=== PATIENT | female | born 1995 | race Caucasian/White ===

== ENCOUNTER 2019-10-30 08:51 | Emergency (ER) | payer MEDICAID ==
[~2019-10-30] VITALS: Ht 162.6 cm; Wt 54.4 kg
--- OUTSIDE RECORDS SUMMARY | ~2019-10-30 | XMS | Encounter Summary ---
Demographics + + + | Address | [address] | | | [place] [address] | + + + | Home Phone | | + + + | Preferred Language | Unknown | + + + | Marital Status | Single | + + + | Adventist Affiliation | 1013 | + + + | Race | Unknown | + + + | Ethnic Group | Unknown | + + + Author + + + | Author | [facility] | | | and [place] | + + + | Organization | [facility] | | | and [place] | + + + | Address | Unknown | + + + | Phone | Unavailable | + + + Support + + + + + | Name | Relationship | Address | Phone | + + + + + | Isma Hogan | ECON | [address] | | | | | [place] [address] | | + + + + + | Ab Romykia | ECON | Unknown | | + + + + + Care Team Providers + +------+ + | Care Project Management Advisor Name | Role | Phone | + +------+ + | Pj Abdi MD | PCP | | + +------+ + Reason for Visit + + + | Reason | Comments | + + + | Medication Refill | | + + + Encounter Details +--------+--------+ + + + | Date | Type | Department | Care Team | Description | +--------+--------+ + + + | 06/05/ | Refill | [facility] | Pj Abdi, | Medication Refill | | 2018 | | [facility] [place] | [address] | | | | | [address] | [place] | | | | | [place] | [address] | | | | | [address] | | | | | | [phone] | | | +--------+--------+ + + + Social History + + + +--------+ + | Tobacco Use | Types | Packs/Day | Years | Date | | | | | Used | | + + + +--------+ + | Current Every Day | Cigarettes | 1 | 14 | Started: 09/17/2009 | | Smoker | | | | | + + + +--------+ + + +---+---+---+ | Smokeless Tobacco: | | | | | Never Used | | | | + +---+---+---+ + + +---------+ + | Alcohol Use | Drinks/Week | oz/Week | Comments | + + +---------+ + | Yes | 0 Standard drinks | 0.0 | rarely | | | or equivalent | | | + + +---------+ + + + + | Sex Assigned at | Date Recorded | | | | + + + | Not on file | | + + + + + + + | Job Start Date | Occupation | Industry | + + + + | Not on file | Not on file | Not on file | + + + + + + + + | Travel History | Travel Start | Travel End | + + + + + + | No recent travel history available. | + + documented as of this encounter Plan of Treatment Not on filedocumented as of this encounter Visit Diagnoses Not on filedocumented in this encounter"
--- OUTSIDE RECORDS SUMMARY | ~2019-10-30 | XMS | Encounter Summary ---
Demographics + + + | Address | [address] | | | [place] [address] | + + + | Home Phone | | + + + | Preferred Language | Unknown | + + + | Marital Status | Single | + + + | Tenriism Affiliation | 1013 | + + + | Race | Unknown | + + + | Ethnic Group | Unknown | + + + Author + + + | Author | [facility] | | | and [place] | + + + | Organization | [facility] | | | and [...] | | | | | [place] [address] | | + + + + + | Ab Romykia | ECON | Unknown | | + + + + + Care Team Providers + +------+ + | Care Communications Associate Name | Role | Phone | + +------+ + PCP | Unavailable | + +------+ + Encounter Details +--------+ + + + + | Date | Type | Department | Care Team | Description | +--------+ + + + + | 05/19/ | Hospital | [facility] | Suhail Constantino | | | 2011 | Encounter | [facility] | MD Brian [address] | | | | | [place] [address] | [address] [place] | | | | | [place], [place] | [place] [address] | | | | | [address] | [phone] | | | | | [phone] | | | +--------+ + + + + Social History + +-------+ +--------+------+ | Tobacco Use | Types | Packs/Day | Years | Date | | | | | Used | | + +-------+ +--------+------+ | Never Assessed | | | | | + +-------+ +--------+------+ + + + | Sex Assigned at [...] + + documented as of this encounter Medications at Time of Discharge + + + +---------+ + + | Medication | Sig | Dispensed | Refills | Start | End Date | | | | | | Date | | + + + +---------+ + + | VITAMINS | TABS Take 1 tablet | | 0 | 02/02/20 | | | PO | by mouth daily | | | 12 | 6 | + + + +---------+ + + documented as of this encounter Plan of Treatment Not on filedocumented as of this encounter Visit Diagnoses Not on filedocumented in this encounter"
--- OUTSIDE RECORDS SUMMARY | ~2019-10-30 | XMS | Encounter Summary ---
Demographics + + + | Address | [address] | | | [place] [address] | + + + | Home Phone | | + + + | Preferred Language | Unknown | + + + | Marital Status | Single | + + + | Lutheran Affiliation | 1013 | + + + | Race | Unknown | + + + | Ethnic Group | Unknown | + + + Author + + + | Author | [facility] | | | and [place] | + + + | Organization | [facility] | | | and [...] | | | | | [place] [address] | | + + + + + | Ab Romykia | ECON | Unknown | | + + + + + Care Team Providers + +------+ + | Care Electromagnet Crane Operator Name | Role | Phone | + +------+ + PCP | Unavailable | + +------+ + Encounter Details +--------+ + + + + | Date | Type | Department | Care Team | Description | +--------+ + + + + | 05/18/ | Hospital | [facility] | Mike Dowd W, | | | 2009 | Encounter | [facility] | MD [address] [facility] | | | | | [address] | [place], [place] | | | | | [place], | [address] | | | | | [place] [address] | [phone] | | | | | [phone] | | | +--------+ + + + [...]
--- OUTSIDE RECORDS SUMMARY | ~2019-10-30 | XMS | Encounter Summary ---
Demographics + + + | Address | [address] | | | [place] [address] | + + + | Home Phone | | + + + | Preferred Language | Unknown | + + + | Marital Status | Single | + + + | Roman Catholic Affiliation | 1013 | + + + | Race | Unknown | + + + | Ethnic Group | Unknown | + + + Author + + + | Author | [facility] | | | and [place] | + + + | Organization | [facility] | | | and [...] | | | | | [place] [address] | | + + + + + | Ab Romykia | ECON | Unknown | | + + + + + Care Team Providers + +------+ + | Care Tile Layer Name | Role | Phone | + +------+ + PCP | Unavailable | + +------+ + Encounter Details +--------+ + + + + | Date | Type | Department | Care Team | Description | +--------+ + + + + | 09[facility]10/ | [facility] | | | [facility] | En[facility] | [facility] | | | | | | CENTER [address] | | | | | | [place], [place] | | | | | | [address] | | | | | | [phone] | | | +--------+ + + + [...]
--- OUTSIDE RECORDS SUMMARY | ~2019-10-30 | XMS | Encounter Summary ---
Demographics + + + | Address | [address] | | | [place] [address] | + + + | Home Phone | | + + + | Preferred Language | Unknown | + + + | Marital Status | Single | + + + | Nondenominational Affiliation | 1013 | + + + | Race | Unknown | + + + | Ethnic Group | Unknown | + + + Author + + + | Author | [facility] | | | and Johnana | + + + | Organization | [facility] | | [...] | | | | | [place] [address] | | + + + + + | Ab Romykia | ECON | Unknown | | + + + + + Care Team Providers + +------+ + | Care Cuff Turner Name | Role | Phone | + +------+ + | John Rhodes | PCP | | + +------+ + Reason for Visit + + + | Reason | Comments | + + + | Abdominal Pain | | + + + Encounter Details +--------+ + + + + | Date | Type | Department | Care Team | Description | +--------+ + + + + | 08/04/ | Emergency | [facility] | Jesse Newman, | Pelvic pain in | | 2016 | | [facility] | [place] [address] | female (Primary Dx); | | | | CENTER [address] | [place], [place] | Left ovarian cyst | | | | [place], [place] | [id number] | | | | | [address] | | | | | | [phone] | | | +--------+ + + + + Social History + + + +--------+------+ | Tobacco Use | Types | Packs/Day | Years | Date | | | | | Used | | + + + +--------+------+ | Current Every Day | Cigarettes | 0.5 | 12 | | | Smoker | | | | | + + + +--------+------+ + +---+---+---+ | Smokeless Tobacco: | | | | | Never Used | | | | + +---+---+---+ + + +---------+ + | Alcohol Use | Drinks/Week | oz/Week | Comments | + + +---------+ + | Yes | 0 Standard drinks | 0.0 | 1 drink per month | | | or equivalent | | [...] + + documented as of this encounter Last Filed Vital Signs + + + + + | Vital Sign | Reading | Time Taken | Comments | + + + + + | Blood Pressure | 115/65 | 08/05/2015 1:36 PM | | | | | PDT | | + + + + + | Pulse | 109 | 08/05/2015 1:36 PM | | | | | PDT | | + + + + + | Temperature | 37.1 C (98.8 F) | 08/05/2015 1:36 PM | | | | | PDT | | + + + + + | Respiratory Rate | 16 | 08/05/2015 1:36 PM | | | | | PDT | | + + + + + | Oxygen Saturation | 100% | 08/05/2015 1:36 PM | | | | | PDT | | + + + + + | Inhaled Oxygen | - | - | | | Concentration | | | | + + + + + | Weight | 54.4 kg (120 lb) | 08/05/2015 1:36 PM | | | | | PDT | | + + + + + | Height | 162.6 cm (5' 4") | 08/05/2015 1:36 PM | | | | | PDT | | + + + + + | Body Mass Index | 20.6 | 08/05/2015 1:36 PM | | | | | PDT | | + + + + + documented in this encounter Discharge Instructions AttachmentsThe following attachments cannot be sent through Care Everywhere.ABDOMINAL PAIN, ADULT (ANGOLAN)documented in this encounter Medications at Time of Discharge + + + +---------+ + + | Medication | Sig | Dispensed | Refills | Start | End Date | | | | | | Date | | + + + +---------+ + + | docusate-senna | Take 1 tablet by | 30 | 1 | 06/16/19 | | | (SENOKOT-S) 50-8.6 | mouth 2 times daily. | tablet | | 16 | 6 | | mg per tablet | | | | | | + + + +---------+ + + | | Take 1 tablet by | 15 | 0 | 08/05/19 | | | HYDROcodone-acetamin | mouth every 6 hours | tablet | | 16 | 6 | | ophen (NORCO) 5-325 | as needed for Pain. | | | | | | mg per tablet | | | | | | + + + +---------+ + + | naproxen | Take 500 mg by mouth | | 0 | | | | (NAPROSYN) 500 mg | Twice daily as | | | | 6 | | tablet | needed. | | | | | + + + +---------+ + + documented as of this encounter Plan of Treatment + +------+--------+ + + | Name | Type | Priori | Associated Diagnoses | Date/Time | | | | ty | | | + +------+--------+ + + | ED INFORMATION | CELSO | Routin | | 08/05/2015 12:24 PM | | EXCHANGE | | e | | PDT | + +------+--------+ + + documented as of this encounter Procedures + +--------+ + + + | Procedure Name | Priori | Date/Time | Associated Diagnosis | Comments | | | ty | | | | + +--------+ + + + | POCT TEST, | STAT | 08/05/2015 | | Results for this | | URINE, QUAL | | 2:49 PM | | procedure are in the | | | | PDT | | results section. | + +--------+ + + + | US PELVIS W | STAT | 08/05/2015 | | Results for this | | TRANSVAGINAL | | 2:48 PM | | procedure are in the | | | | PDT | | results section. | + +--------+ + + + | URINALYSIS WITH | STAT | 08/05/2015 | | Results for this | | MICROSCOPIC WITH | | 2:47 PM | | procedure are in the | | CULTURE IF INDICATED | | PDT | | results section. | + +--------+ + + + | EXTRA GOLD TOP TUBE | Routin | 08/05/2015 | | Results for this | | | e | 2:23 PM | | procedure are in the | | | | PDT | | results section. | + +--------+ + + + | EXTRA BLUE TOP TUBE | Routin | 08/05/2015 | | Results for this | | | e | 2:23 PM | | procedure are in the | | | | PDT | | results section. | + +--------+ + + + | CBC W/AUTO | STAT | 08/05/2015 | | Results for this | | DIFFERENTIAL | | 2:15 PM | | procedure are in the | | | | PDT | | results section. | + +--------+ + + + | COMPREHENSIVE | STAT | 08/05/2015 | | Results for this | | METABOLIC PANEL | | 2:15 PM | | procedure are in the | | | | PDT | | results section. | + +--------+ + + + | ED INFORMATION | Routin | 08/05/2015 | | | | EXCHANGE | e | 12:24 PM | | | | | | PDT | | | + +--------+ + + + documented in this encounter Results POCT Test, Urine, QUAL (08/05/2015 2:49 PM PDT) + + + + + + | Component | Value | Ref Range | Performed | Pathologist | | | | | At | Signature | + + + + + + | | Negative | Negative | | | | Test, | | | | | | Urine, POC | | | | | + + + + + + | Internal QC | Acceptable | | | | + + + + + + | Specific | | 1.010, 1.015, | | | | [place], | | 1.020, 1.025 | | | | POC | | | | | + + + + + + | Lot Number | [id number] | | | | + + + + + + | Expiration | 12/2016 | | | | | Date | | | | | + + + + + + + + | Specimen | + + | Urine specimen | | (specimen) | + + US Pelvis W Transvaginal (08/05/2015 2:48 PM PDT) + + | Specimen | + + | | + + + + + | Narrative | Performed At | + + + | EXAM: US PELVIS W TRANSVAGINAL dated 08/05/2015 12:00 AM | [facility] | | HISTORY:ABDOMINAL PAIN COMPARISON: January 14, 2012. | | | FINDINGS:Transabdominal and transvaginal imaging of the pelvis. | | | Uterus: The uterus is anteflexed. There is a 2 mm hyperechoic focus | | | in the myometrium. This does not shadow. The myometrium is | | | otherwise unremarkable. The endometrium is homogeneous and compact. | | | It measures 4 mm. The uterus measures 6.8 x 2.8 x 4.4 cm. | | | Ovaries and adnexa:. Ovaries are visualized. The right ovary is | | | normal. It measures 3.4 x 2.7 x 1.7 cm. There is a prominent | | | follicle in the left ovary. It measures 2.6 x 2.2 x 1.9 cm. The | | | left ovary overall measures 2.8 x 3.8 x 2.8 cm. Spectral and color | | | Doppler flow are identified in both ovaries. There are no adnexal | | | masses. There is no significant free fluid. IMPRESSION - | | | Prominent follicle in the left ovary. No evidence for ovarian | | | torsion. Nonspecific 2 mm echogenic focus in the myometrium. | | | This could be an area of mineralization. The preliminary | | | findings were conveyed to the ordering provider, by the hvac installation technician, | | | immediately following the exam. Dictated and Signed by: Nikko Odonnell | | | MD Krishan Electronically signed: 08/05/2015 3:23 PM | | + + + + + | Procedure Note | + + | Honorio, Rad Results In - 08/05/2015 3:26 PM PDT EXAM: US PELVIS W TRANSVAGINAL dated | | 08/05/2015 12:00 AMHISTORY:ABDOMINAL PAINCOMPARISON: January 13, | | 2011.FINDINGS:Transabdominal and transvaginal imaging of the pelvis.Uterus: The uterus | | is anteflexed. There is a 2 mm hyperechoic focus in themyometrium. This does not | | shadow. The myometrium is otherwise unremarkable. The endometrium is homogeneous and | | compact. It measures 4 mm. The uterusmeasures 6.8 x 2.8 x 4.4 cm.Ovaries and adnexa:. | | Ovaries are visualized. The right ovary is normal. Itmeasures 3.4 x 2.7 x 1.7 cm. | | There is a prominent follicle in the left ovary. It measures 2.6 x 2.2 x 1.9 cm. The | | left ovary overall measures 2.8 x 3.8 x 2.8cm. Spectral and color Doppler flow are | | identified in both ovaries. There areno adnexal masses. There is no significant free | | fluid.IMPRESSION -Prominent follicle in the left ovary.No evidence for ovarian | | torsion.Nonspecific 2 mm echogenic focus in the myometrium. This could be an area | | ofmineralization.The preliminary findings were conveyed to the ordering provider, by | | thesonographer, immediately following the exam.Dictated and Signed by: Nikko Nickerson, | | Electronically signed: 08/05/2015 3:23 PM | |It measures 2.6 x 2.2 x 1.9 cm. The left ovary overall measures 2.8 x 3.8 x 2.8 | |cm. Spectral and color Doppler flow are identified in both ovaries. There are | |no adnexal masses. There is no significant free fluid. | | | |IMPRESSION - | | | |Prominent follicle in the left ovary. | | | |No evidence for ovarian torsion. | | | |Nonspecific 2 mm echogenic focus in the myometrium. This could be an area of | |mineralization. | | | |The preliminary findings were conveyed to the ordering provider, by the | |hvac installation technician, immediately following the exam. | | | |Dictated and Signed by: Nikko Nickerson MD | | Electronically signed: 08/05/2015 3:23 PM | + + + +---------+ + + | Performing | Address | City/State/Zipcode | Phone Number | | Organization | | | | + +---------+ + + | [facility] | | | | + +---------+ + + Urinalysis with Microscopic with Culture if Indicated (08/05/2015 2:47 PM PDT) + + + + + + | Component | Value | Ref Range | Performed | Pathologist | | | | | At | Signature | + + + + + + | Color, | Yellow | Light Yellow, | [facility] | | | Urine | | Yellow, Straw | [facility] | | | | | | MED[facility] | | | | | | [facility] - | | | | | | LABORATORY | | + + + + + + | Clarity | Hazy | | [facility] | | | | | | [facility] | | | | | | MED[facility] | | | | | | CENTER - | | | | | | LABORATORY | | + + + + + + | pH, Urine | 8.0 | 5.0 - 8.0 | [facility] | | | | | | [facility] | | | | | | MEDICAL | | | | | | CENTER - | | | | | | LABORATORY | | + + + + + + | Specific | 1.006 | 1.001 - 1.030 | [facility] | | | [place], | | | [facility] | | | Urine | | | MEDICAL | | | | | | CENTER - | | | | | | LABORATORY | | + + + + + + | Protein, | Negative | Negative | [facility] | | | Urine | | | [facility] | | | | | | MEDICAL | | | | | | CENTER - | | | | | | LABORATORY | | + + + + + + | Blood, | Negative | Negative | [facility] | | | Urine | | | [facility] | | | | | | MEDICAL | | | | | | CENTER - | | | | | | LABORATORY | | + + + + + + | Glucose, | Negative | Negative | [facility] | | | Urine | | | [facility] | | | | | | MEDICAL | | | | | | CENTER - | | | | | | LABORATORY | | + + + + + + | Ketones, | Negative | Negative | [facility] | | | Urine | | | [facility] | | | | | | MEDICAL | | | | | | CENTER - | | | | | | LABORATORY | | + + + + + + | Bilirubin, | Negative | Negative | [facility] | | | Urine | | | [facility] | | | | | | MEDICAL | | | | | | CENTER - | | | | | | LABORATORY | | + + + + + + | Nitrite, | Negative | Negative | [facility] | | | Urine | | | [facility] | | | | | | MEDICAL | | | | | | CENTER - | | | | | | LABORATORY | | + + + + + + | Leukocyte | Negative | Negative | [facility] | | | Esterase, | | | [facility] | | | Urine | | | MEDICAL | | | | | | CENTER - | | | | | | LABORATORY | | + + + + + + | Urobilinoge | Negative | < 0.2 mg/dL, | [facility] | | | n, Urine | | 1.0 mg/dL, 4.0 | [facility] | | | | | mg/dL, Normal, | MEDICAL | | | | | 1.0 E.U./dL, | CENTER - | | | | | 0.2 E.U./dL, | LABORATORY | | | | | 0.2 mg/dL, | | | | | | Negative, 1 | | | | | | mg/dL, <2.0 | | | | | | mg/dL | | | + + + + + + | White Blood | 0-2 | 0 - 2 /HPF | [facility] | | | Cells, | | | [facility] | | | Urine | | | MEDICAL | | | | | | CENTER - | | | | | | LABORATORY | | + + + + + + | Red Blood | 0-2 | 0 - 2 /HPF | [facility] | | | Cells, | | | [facility] | | | Urine | | | MEDICAL | | | | | | CENTER - | | | | | | LABORATORY | | + + + + + + | Squamous | >100 (A) | 0 - 2 /LPF | [facility] | | | Epithelial | | | [facility] | | | Cells, | | | MEDICAL | | | Urine | | | CENTER - | | | | | | LABORATORY | | + + + + + + | Transitiona | 0-2 | 0 - 2 /HPF | [facility] | | | l | | | [facility] | | | Epithelial | | | MEDICAL | | | Cells, | | | CENTER - | | | Urine | | | LABORATORY | | + + + + + + | Bacteria, | 1+ (A) | Negative /HPF | [facility] | | | Urine | | | [facility] | | | | | | MEDICAL | | | | | | CENTER - | | | | | | LABORATORY | | + + + + + + | Mucus, | Present (A) | Negative /LPF | [facility] | | | Urine | | | [facility] | | | | | | MEDICAL | | | | | | CENTER - | | | | | | LABORATORY | | + + + + + + | Urine | Urine Culture Not | | [facility] | | | Comment | Indicated | | [facility] | | | | | | MEDICAL | | | | | | CENTER - | | | | | | LABORATORY | | + + + + + + + + | Specimen | + + | Urine - Urine | | specimen obtained by | | clean catch | | procedure (specimen) | + + + + + + + | Performing | Address | City/State/Zipcode | Phone Number | | Organization | | | | + + + + + | [facility] | [address] | [place] | [phone] | | [facility] | | [address] | | | - LABORATORY | | | | + + + + + Extra Gold Top Tube (08/05/2015 2:23 PM PDT) + +-------+ + + + | Component | Value | Ref Range | Performed | Pathologist | | | | | At | Signature | + +-------+ + + + | Extra Gold | Done | | [facility] | | | Top Tube | | | [facility] | | | | | | MEDICAL | | | | | | CENTER - | | | | | | LABORATORY | | + +-------+ + + + + + | Specimen | + + | Blood | + + + + + + + | Performing | Address | City/State/Zipcode | Phone Number | | Organization | | | | + + + + + | [facility] | [address] | [place] | [phone] | | [facility] | | [address] | | | - LABORATORY | | | | + + + + + Extra Blue Top Tube (08/05/2015 2:23 PM PDT) + +-------+ + + + | Component | Value | Ref Range | Performed | Pathologist | | | | | At | Signature | + +-------+ + + + | Extra Blue | Done | | [facility] | | | Top Tube | | | [facility] | | | | | | MEDICAL | | | | | | CENTER - | | | | | | LABORATORY | | + +-------+ + + + + + | Specimen | + + | Blood | + + + + + + + | Performing | Address | City/State/Zipcode | Phone Number | | Organization | | | | + + + + + | [facility] | [address] | [place] | [phone] | | [facility] | | [address] | | | - LABORATORY | | | | + + + + + Comprehensive Metabolic Panel (08/05/2015 2:15 PM PDT) + + + + + + | Component | Value | Ref Range | Performed | Pathologist | | | | | At | Signature | + + + + + + | Na | 141 | 136 - 149 | [facility] | | | | | mmol/L | [facility] | | | | | | MEDICAL | | | | | | CENTER - | | | | | | LABORATORY | | + + + + + + | K | 4.0 | 3.5 - 5.1 | [facility] | | | | | mmol/L | [facility] | | | | | | MEDICAL | | | | | | CENTER - | | | | | | LABORATORY | | + + + + + + | Cl | 106 | 98 - 109 mmol/L | [facility] | | | | | | [facility] | | | | | | MEDICAL | | | | | | CENTER - | | | | | | LABORATORY | | + + + + + + | CO2 | 27 | 24 - 31 mmol/L | [facility] | | | | | | [facility] | | | | | | MEDICAL | | | | | | CENTER - | | | | | | LABORATORY | | + + + + + + | Anion Gap | 8 | 3 - 16 mmol/L | [facility] | | | | | | [facility] | | | | | | MEDICAL | | | | | | CENTER - | | | | | | LABORATORY | | + + + + + + | Glucose | 106 | 70 - 109 mg/dL | [facility] | | | | | | [facility] | | | | | | MEDICAL | | | | | | CENTER - | | | | | | LABORATORY | | + + + + + + | BUN | 3 (L) | 7 - 18 mg/dL | [facility] | | | | | | [facility] | | | | | | MEDICAL | | | | | | CENTER - | | | | | | LABORATORY | | + + + + + + | Creatinine | 0.62 | 0.60 - 1.30 | [facility] | | | | | mg/dL | [facility] | | | | | | MEDICAL | | | | | | CENTER - | | | | | | LABORATORY | | + + + + + + | eGFR if not | >60Comment: GLOMERULAR | >=60 | [facility] | | | | FILTRATION | mL/min/1.73m2 | [facility] | | | [place] | RATE,ESTIMATED | | MEDICAL | | | | mL/min/1.35v1Rvme than | | CENTER - | | | | 60 Chronic kidney | | LABORATORY | | | | disease,if found over a | | | | | | 3-month period.Less than | | | | | | 15 Kidney failureFor | | | | | | | | | | | | Americans,multiply the | | | | | | calculated GFR by 1.21. | | | | | | | | | | + + + + + + | Calcium | 9.4 | 8.3 - 10.5 | [facility] | | | | | mg/dL | [facility] | | | | | | MEDICAL | | | | | | CENTER - | | | | | | LABORATORY | | + + + + + + | Albumin | 4.2 | 3.2 - 5.0 g/dL | [facility] | | | | | | [facility] | | | | | | MEDICAL | | | | | | CENTER - | | | | | | LABORATORY | | + + + + + + | Bilirubin | 0.7 | 0.1 - 1.5 mg/dL | [facility] | | | Total | | | [facility] | | | | | | MEDICAL | | | | | | CENTER - | | | | | | LABORATORY | | + + + + + + | Total | 6.6 | 6.0 - 7.8 g/dL | [facility] | | | Protein | | | [facility] | | | | | | MEDICAL | | | | | | CENTER - | | | | | | LABORATORY | | + + + + + + | AST | 20 | 10 - 42 U/L | [facility] | | | | | | [facility] | | | | | | MEDICAL | | | | | | CENTER - | | | | | | LABORATORY | | + + + + + + | ALT | 17 | 6 - 45 U/L | [facility] | | | | | | [facility] | | | | | | MEDICAL | | | | | | CENTER - | | | | | | LABORATORY | | + + + + + + | Alkaline | 75 | 40 - 110 U/L | [facility] | | | Phosphatase | | | [facility] | | | | | | MEDICAL | | | | | | CENTER - | | | | | | LABORATORY | | + + + + + + | Globulin | 2.4 | g/dL | [facility] | | | | | | [facility] | | | | | | MEDICAL | | | | | | CENTER - | | | | | | LABORATORY | | + + + + + + | Albumin/Bianca | 1.8 | | [facility] | | | bulin Ratio | | | [facility] | | | | | | MEDICAL | | | | | | CENTER - | | | | | | LABORATORY | | + + + + + + | BUN/Creatin | 4.8 | | [facility] | | | ine Ratio | | | [facility] | | | | | | MEDICAL | | | | | | CENTER - | | | | | | LABORATORY | | + + + + + + + + | Specimen | + + | Blood | + + + + + + + | Performing | Address | City/State/Zipcode | Phone Number | | Organization | | | | + + + + + | [facility] | [address] | [place] | [phone] | | [facility] | | [address] | | | - LABORATORY | | | | + + + + + CBC w/ Auto Differential (08/05/2015 2:15 PM PDT) + + + + + + | Component | Value | Ref Range | Performed | Pathologist | | | | | At | Signature | + + + + + + | WBC | 7.6 | 4.0 - 11.0 K/uL | [facility] | | | | | | [facility] | | | | | | MEDICAL | | | | | | CENTER - | | | | | | LABORATORY | | + + + + + + | RBC | 4.37 | 3.70 - 5.20 | [facility] | | | | | M/uL | [facility] | | | | | | MEDICAL | | | | | | CENTER - | | | | | | LABORATORY | | + + + + + + | Hemoglobin | 13.4 | 11.5 - 16.0 | [facility] | | | | | g/dL | [facility] | | | | | | MEDICAL | | | | | | CENTER - | | | | | | LABORATORY | | + + + + + + | Hematocrit | 40.3 | 34.0 - 47.0 % | [facility] | | | | | | [facility] | | | | | | MEDICAL | | | | | | CENTER - | | | | | | LABORATORY | | + + + + + + | MCV | 92.2 | 83.0 - 101.0 fL | [facility] | | | | | | [facility] | | | | | | MEDICAL | | | | | | CENTER - | | | | | | LABORATORY | | + + + + + + | MCH | 30.7 | 28.0 - 35.0 pg | [facility] | | | | | | [facility] | | | | | | MEDICAL | | | | | | CENTER - | | | | | | LABORATORY | | + + + + + + | MCHC | 33.3 | 32.0 - 36.0 | [facility] | | | | | g/dL | [facility] | | | | | | MEDICAL | | | | | | CENTER - | | | | | | LABORATORY | | + + + + + + | RDW-CV | 12.2 | <15.0 % | [facility] | | | | | | [facility] | | | | | | MEDICAL | | | | | | CENTER - | | | | | | LABORATORY | | + + + + + + | Platelet | 337 | 140 - 440 K/uL | [facility] | | | Count | | | [facility] | | | | | | MEDICAL | | | | | | CENTER - | | | | | | LABORATORY | | + + + + + + | MPV | 7.9 | fL | [facility] | | | | | | [facility] | | | | | | MEDICAL | | | | | | CENTER - | | | | | | LABORATORY | | + + + + + + | % | 76.9 | 45.0 - 82.0 % | [facility] | | | Neutrophils | | | [facility] | | | | | | MEDICAL | | | | | | CENTER - | | | | | | LABORATORY | | + + + + + + | % | 16.5 (L) | 20.0 - 45.0 % | [facility] | | | Lymphocytes | | | [facility] | | | | | | MEDICAL | | | | | | CENTER - | | | | | | LABORATORY | | + + + + + + | % Monocytes | 5.2 | 4.0 - 12.0 % | [facility] | | | | | | [facility] | | | | | | MEDICAL | | | | | | CENTER - | | | | | | LABORATORY | | + + + + + + | % | 0.8 | 0.0 - 5.0 % | [facility] | | | Eosinophils | | | [facility] | | | | | | MEDICAL | | | | | | CENTER - | | | | | | LABORATORY | | + + + + + + | % Basophils | 0.6 | 0.0 - 1.0 % | [facility] | | | | | | [facility] | | | | | | MEDICAL | | | | | | CENTER - | | | | | | LABORATORY | | + + + + + + | Absolute | 5.80 | 1.80 - 8.50 | [facility] | | | Neutrophils | | K/uL | [facility] | | | | | | MEDICAL | | | | | | CENTER - | | | | | | LABORATORY | | + + + + + + | Absolute | 1.20 | 0.60 - 3.20 | [facility] | | | Lymphocytes | | K/uL | [facility] | | | | | | MEDICAL | | | | | | CENTER - | | | | | | LABORATORY | | + + + + + + | Absolute | 0.40 | 0.00 - 1.00 | [facility] | | | Monocytes | | K/uL | [facility] | | | | | | MEDICAL | | | | | | CENTER - | | | | | | LABORATORY | | + + + + + + | Absolute | 0.10 | 0.00 - 0.40 | [facility] | | | Eosinophils | | K/uL | [facility] | | | | | | MEDICAL | | | | | | CENTER - | | | | | | LABORATORY | | + + + + + + | Absolute | 0.00 | 0.00 - 0.10 | [facility] | | | Basophils | | K/uL | [facility] | | | | | | MEDICAL | | | | | | CENTER - | | | | | | LABORATORY | | + + + + + + + + | Specimen | + + | Blood | + + + + + + + | Performing | Address | City/State/Zipcode | Phone Number | | Organization | | | | + + + + + | [facility] | [address] | [place] | [phone] | | [facility] | | [address] | | | - LABORATORY | | | | + + + + + documented in this encounter Visit Diagnoses + + | Diagnosis | + + | Pelvic pain in female - Primary Unspecified symptom associated with female genital | | organs | + + | Left ovarian cyst Other and unspecified ovarian cyst | + + documented in this encounter Administered Medications + +--------+ +---------+------+------+ | Medication Order | MAR | Action | Dose | Rate | Site | | | Action | Date | | | | + +--------+ +---------+------+------+ | HYDROcodone-acetaminophen | Given | 08/05/19 | 2 | | | | ([facility]CO) 5-325 mg per tablet 2 | | 16 2:15 | tablets | | | | tablet 2 tablet, Oral, ONCE, Tue | | PM PDT | | | | | 08/05/15 at 1405, For 1 dose | | | | | | + +--------+ +---------+------+------+ +---+---+ | | | +---+---+ documented in this encounter
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
--- OUTSIDE RECORDS SUMMARY | ~2019-10-30 | XMS | Encounter Summary ---
Demographics + + + | Address | [address] | | | [place] [address] | + + + | Home Phone | | + + + | Preferred Language | Unknown | + + + | Marital Status | Single | + + + | Scientology Affiliation | 1013 | + + + | Race | Unknown | + + + | Ethnic Group | Unknown | + + + Author + + + | Author | [facility] | | | and Johnana | + + + | Organization | [facility] | | | and [...] | | | | | [place] [address] | | + + + + + | Ab Julio C | ECON | Unknown | | + + + + + Care Team Providers + +------+ + | Care Columnist/Commentator Name | Role | Phone | + +------+ + | Pj Abdi MD | PCP | | + +------+ + Reason for Visit + + + | Reason | Comments | + + + | Incontinence | | + + + | Back Pain | | + + + Encounter Details +--------+ + + + + | Date | Type | Department | Care Team | Description | +--------+ + + + + | 03/25/ | Emergency | [facility] | Jeannette, | Chronic bilateral | | 2017 - | | [facility] | Mike Yarbrough MD [address] | low back pain with | | | | CENTER [address] | [address] [place] | right-sided sciatica | | 03/26/ | | [place] | [place] [address] | (Primary Dx); | | 2016 | | [address] | [phone] | Urinary | | | | [phone] | | incontinence, | | | | | Eric Lozano MD | unspecified type | | | | | [address] | | | | | | [place] | | | | | | [id number] | | | | | | | | +--------+ + + + [...] + + + | Blood Pressure | 123/69 | 03/25/2017 11:56 PM | | | | | PDT | | + + + + + | Pulse | 102 | 03/25/2017 11:56 PM | | | | | PDT | | + + + + + | Temperature | 35.8 C (96.5 F) | 03/25/2017 10:58 PM | | | | | PDT | | + + + + + | Respiratory Rate | 18 | 03/25/2017 10:58 PM | | | | | PDT | | + + + + + | Oxygen Saturation | 99% | 03/25/2017 11:56 PM | | | | | PDT | | + + + + + | Inhaled Oxygen | - | - | | | Concentration | | | | + + + + + | Weight | 59 kg (130 lb) | 03/25/2017 10:58 PM | | | | | PDT | | + + + + + | Height | 165.1 cm (5' 5") | 03/25/2017 10:58 PM | | | | | PDT | | + + + + + | Body Mass Index | 21.63 | 03/25/2017 10:58 PM | | | | | PDT | | + + + + + documented in this encounter Discharge Instructions AttachmentsThe following attachments cannot be sent through Care Everywhere.Back Pain (Low) : Self-Care (Emirati)documented in this encounter Medications at Time of Discharge + + + +---------+ + + | Medication | Sig | Dispensed | Refills | Start | End Date | | | | | | Date | | + + + +---------+ + + | acetaminophen | Take 500 mg by mouth | | 0 | | | | (TYLENOL) 500 mg | every 6 hours as | | | | 8 | | tablet | needed for Pain. | | | | | + + + +---------+ + + | aspirin 325 mg | Take 325 mg by mouth | | 0 | | | | tablet | 2 times daily. | | | | 8 | + + + +---------+ + + | gabapentin | Take 3 capsules by | 90 | 5 | 12/01/19 | | | (NEURONTIN) 300 mg | mouth Daily. | capsule | | 17 | 8 | | capsuleIndications: | | | | | | | Chronic pain | | | | | | | syndrome, DDD | | | | | | | (degenerative disc | | | | | | | disease), lumbar, | | | | | | | Facet arthritis of | | | | | | | lumbar region, | | | | | | | Chronic right-sided | | | | | | | low back pain with | | | | | | | right-sided sciatica | | | | | | + + + +---------+ + + | | Take 1 tablet by | 30 | 0 | 03/10/20 | | | HYDROcodone-acetamin | mouth every 6 hours | tablet | | 17 | 7 | | ophen (NORCO) 5-325 | as needed for Pain | | | | | | mg per | (for severe break | | | | | | tabletIndications: | through pain). | | | | | | Chronic pain | | | | | | | syndrome | | | | | | + + + +---------+ + + | hydrOXYzine | TAKE TWO TABLETS | 60 | 0 | 03/15/20 | | | hydrochloride | EVERY SIX HOURS | tablet | | 17 | 7 | | (ATARAX) 25 mg | NEEDED FOR ANXIETY | | | | | | tablet | OR ITCHING | | | | | + + + +---------+ + + | methylPREDNISolone | Follow package | 21 | 0 | 02/16/20 | | | (MEDROL DOSEPAK) 4 | directions. | tablet | | 17 | 7 | | mg tablet | | | | | | + + + +---------+ + + | naproxen | TAKE ONE TABLET | 60 | 5 | 01/27/20 | | | (NAPROSYN) 500 mg | TWICE DAILY WITH | tablet | | 17 | 8 | | tablet | BREAKFAST AND DINNER | | | | | + + + +---------+ + + | ondansetron | DISSOLVE ONE TABLET | 30 | 1 | 02/22/20 | | | (ZOFRAN ODT) 4 mg | UNDER THE TONGUE | tablet | | 17 | 8 | | disintegrating | EVERY EIGHT HOURS | | | | | | tablet | NEEDED FOR NAUSEA | | | | | + + + +---------+ + + | propranolol | Take 1 tablet by | 60 | 5 | 11/03/19 | | | (INDERAL) 10 mg | mouth 2 times daily. | tablet | | 17 | 8 | | tabletIndications: | | | | | | | Panic disorder, | | | | | | | Generalized anxiety | | | | | | | disorder | | | | | | + + + +---------+ + + | tiZANidine | Take 1 tablet by | 30 | 1 | 02/18/20 | | | (ZANAFLEX) 4 mg | mouth every 6 hours | tablet | | 17 | 7 | | tabletIndications: | as needed. | | | | | | Whiplash injury, | | | | | | | acute, initial | | | | | | | encounter | | | | | | + + + +---------+ + + | traZODone | Take 0.5-1 tablet | 30 | 11 | 01/12/20 | | | (DESYREL) 100 mg | nightly as needed | tablet | | 17 | 8 | | tabletIndications: | for sleep | | | | | | Insomnia, | | | | | | | unspecified type | | | | | | + + + +---------+ + + | venlafaxine | Take 1 capsule by | 30 | 5 | 12/01/19 | | | (EFFEXOR XR) 75 mg | mouth Daily. | capsule | | 17 | 7 | | 24 hr | | | | | | | capsuleIndications: | | | | | | | Anxiety with | | | | | | | depression | | | | | | + + + +---------+ + + documented as of this encounter Plan of Treatment + +------+--------+ + + | Name | Type | Priori | Associated Diagnoses | Date/Time | | | | ty | | | + +------+--------+ + + | ED INFORMATION | CELSO | Routin | | 03/25/2017 10:55 PM | | EXCHANGE | | e | | PDT | + +------+--------+ + + documented as of this encounter Procedures + +--------+ + + + | Procedure Name | Priori | Date/Time | Associated Diagnosis | Comments | | | ty | | | | + +--------+ + + + | MRI LUMBAR SPINE WO | STAT | 03/26/2017 | | Results for this | | CONTRAST | | 1:06 AM | | procedure are in the | | | | PDT | | results section. | + +--------+ + + + | URINALYSIS, | Routin | 03/25/2017 | | Results for this | | MICROSCOPIC ONLY, | e | 11:29 PM | | procedure are in the | | WITH CULTURE IF | | PDT | | results section. | | INDICATED | | | | | + +--------+ + + + | POCT URINALYSIS, | STAT | 03/25/2017 | | Results for this | | AUTO WITH CONF | | 11:29 PM | | procedure are in the | | | | PDT | | results section. | + +--------+ + + + | POCT TEST, | STAT | 03/25/2017 | | Results for this | | URINE, QUAL | | 11:29 PM | | procedure are in the | | | | PDT | | results section. | + +--------+ + + + | ED INFORMATION | Routin | 03/25/2017 | | | | EXCHANGE | e | 10:55 PM | | | | | | PDT | | | + +--------+ + + + +---+--------+ | | | | | Proced | | | ure | | | Note - | | | Thomas, | | | Lab In | | | | | | Hlseve | | | n - | | | | | | 2016 | | | 10:56 | | | PM PDT | | | | | | Format | | | ting | | | of | | | this | | | note | | | might | | | be | | | differ | | | ent | | | from | | | the | | | origin | | | al.THOMAS | | | E?NOTI | | | FICATI | | | ON? | | | | | | 7 | | | 22:52? | | | SHAH | | | LSH, | | | SABRIN | | | A | | | K?MRN: | | | | | | [id number] | | | [id number] | | | his | | | patien | | | t has | | | regist | | | ered | | | at the | | | | | | Provid | | | ence | | | [facility] | [facility] l | | | Center | | | | | | Emerge | | | ncy | | | Depart | | | ment | | | For | | | more | | | inform | | | ation | | | visit: | | | | | | https: | | | //secu | | | [email or web address] | | | ecarep | | | [email or web address] | | | m/raul | | | [email or web address]/[email or web address] | | | [id number] | | | [phone] | | | [id number] | | | [id number] | | | [email or web address] | | | [id number] | | | ED | | | Care | | | Guidel | | | inesTh | | | ere | | | are | | | curren | | | tly no | | | ED | | | Care | | | Guidel | | | maranda | | | in | | | [facility] | | | for | | | this | | | patien | | | t. | | | Please | | | check | | | your | | | facili | | | ty's | | | medica | | | l | | | record | | | s | | | system | | | .Recen | | | t | | | Emerge | | | ncy | | | Depart | | | ment | | | Visit | | | [place] | | | yAdmit | | | Date | | | Facili | | | ty | | | City | | | State | | | Type | | | Major | | | Type | | | Diagno | | | ses or | | | Chief | | | | | | Compla | | | int | | | Nov 3, | | | 2017 | | | Provid | | | ence | | | [facility] | [place] | | | [place] | | | Emerge | | | ncy | | | Emerge | | | ncy | | | | | | Incont | | | enance | | | | | | Incont | | | enance | | | ; Back | | | Pain | | | Sep | | | 26, | | | 2017 | | | Provid | | | ence | | | [facility] | [place] | | | [place] | | | Emerge | | | ncy | | | Emerge | | | ncy | | | back | | | injury | | | | | | Back | | | Pain | | | Low | | | back | | | pain | | | Aug | | | 18, | | | 2017 | | | [facility] | | | [place] | | | Urgent | | | Care | | | [place] | | | [place] | | | Urgent | | | Care | | | | | | Outpat | | | ient | | | | | | Lacera | | | tion | | | withou | | | t | | | foreig | | | n | | | body, | | | left | | | lower | | | leg, | | | initia | | | l | | | encoun | | | ter | | | | | | Furunc | | | le, | | | unspec | | | ified | | | E.D. | | | Visit | | | Count | | | (12 | | | mo.)Fa | | | cility | | | | | | Visits | | | Low | | | Acuity | | | | | | Provid | | | ence | | | St. | | | [facility] | Medica | | | l | | | Center | | | 8 0 | | | Total | | | 8 0 | | | Note: | | | Visits | | | | | | indica | | | te | | | total | | | known | | | visits | | | . | | | Medica | | | id Low | | | | | | Acuity | | | Dx | | | are | | | the | | | number | | | of | | | primar | | | y | | | diagno | | | ses on | | | the | | | Medica | | | id's | | | Low | | | Acuity | | | dx | | | list. | | | | | | Recent | | | | | | Inpati | | | ent | | | Visit | | | [place] | | | yNo | | | record | | | ed | | | inpati | | | ent | | | visits | | | . | | | Washin | | | gton | | | PDMP | | | Report | | | Rx | | | Detail | | | s (6 | | | Mo.)Fi | | | ll | | | Date | | | Drug | | | Descri | | | ption | | | Qty. | | | Prescr | | | iber | | | CS MED | | | | | | 2017-1 | | | 0-20 | | | HYDROC | | | ODON-A | | | CETAMI | | | NOPHEN | | | 5-325 | | | 30 | | | PJ | | | ABDI | | | 0 | | | 2017 | | | 9-28 | | | HYDROC | | | ODON-A | | | CETAMI | | | NOPHEN | | | 5-325 | | | 30 | | | PJ | | | ABDI | | | 2 30 | | | | | | 9-24 | | | HYDROC | | | ODON-A | | | CETAMI | | | NOPHEN | | | 5-325 | | | 30 | | | PJ | | | ABDI | | | 2 5 | | | | | | 8-25 | | | HYDROC | | | ODON-A | | | CETAMI | | | NOPHEN | | | 5-325 | | | 30 | | | PJ | | | ABDI | | | 2 | | | 18.75 | | | | | | 7-28 | | | HYDROC | | | ODON-A | | | CETAMI | | | NOPHEN | | | 5-325 | | | 30 | | | PJ | | | ABDI | | | 2 | | | 21.429 | | | | | | | | | 7-13 | | | HYDROC | | | ODON-A | | | CETAMI | | | NOPHEN | | | 5-325 | | | 30 | | | PJ | | | ABDI | | | 0 | | | | | | 6-15 | | | HYDROC | | | ODON-A | | | CETAMI | | | NOPHEN | | | 5-325 | | | 30 | | | PJ | | | ABDI | | | 0 | | | | | | 5-18 | | | HYDROC | | | ODON-A | | | CETAMI | | | NOPHEN | | | 5-325 | | | 24 | | | ANSON | | | KANDICE | | | 0 Rx | | | [place] | | | y (12 | | | Mo.)Me | | | tric | | | Count | | | CS | | | II-V | | | Rx 13 | | | CS-II | | | Rx 11 | | | Quanti | | | ty | | | Dispen | | | sed | | | 753 | | | Unique | | | | | | Prescr | | | ibers | | | 5 | | | Unique | | | | | | Pharma | | | cies 3 | | | | | | Benzos | | | 1 | | | Opioid | | | s 12 | | | Long | | | Acting | | | | | | Opioid | | | s 0 | | | Care | | | Provid | | | ersPro | | | vider | | | PRC | | | Type | | | Phone | | | Fax | | | Servic | | | e | | | Dates | | | ANSON | | | KANDICE | | | Primar | | | y Care | | | | | | (509) | | | [phone] | | | 43 Nov | | | 1, | | | 2016 - | | | | | | Curren | | | t | | | Mike | | | D | | | Jolene | | | Primar | | | y Care | | | | | | Curren | | | t | | | Criter | | | ia met | | | PDMP | | | | | | Medica | | | id 5 | | | in | | | 12Know | | | n | | | Aliase | | | sNo | | | known | | | aliase | | | s. The | | | above | | | | | | inform | | | ation | | | is | | | provid | | | ed for | | | the | | | sole | | | purpos | | | e of | | | patien | | | t | | | treatm | | | ent. | | | Use of | | | this | | | inform | | | ation | | | beyond | | | the | | | terms | | | of | | | Data | | | Sharin | | | g | | | Memora | | | ndum | | | of | | | Unders | | | tandin | | | g and | | | Licens | | | e | | | Agreem | | | ent is | | | | | | prohib | | | ited. | | | In | | | certai | | | n | | | cases | | | not | | | all | | | visits | | | may | | | be | | | repres | | | ented. | | | | | | Consul | | | t the | | | aforem | | | ention | | | ed | | | facili | | | ties | | | for | | | additi | | | onal | | | inform | | | ation. | | | ? | | | 2017 | | | Collec | | | tive | | | Medica | | | l | | | [employer] | | | logies | | | , [employer] | | | - | | | [place] | | | [place] | | | [place], | | | [place] - | | | [email or web address] | | | ollect | | | ivemed | | | icalte | | | [email or web address] | | | | +---+--------+ documented in this encounter Results MRI Lumbar Spine wo Contrast (03/26/2017 1:06 AM PDT) + + | Specimen | + + | | + + + + + | Narrative | Performed At | + + + | MRI LUMBAR SPINE WITHOUT CONTRAST CLINICAL INFORMATION: | [facility] | | Known lumbar disc disease. Patient has had three episodes of urinary | | | incontinence. COMPARISON: MRI LUMBAR SPINE WO CONTRAST dated | | | 08/07/2016; MRI LUMBAR SPINE WO CONTRAST dated 08/05/2016; Lumbar Spine | | | 4 Vw Min dated 05/28/2016; CT ABDOMEN PELVIS W CONTRAST dated | | | 08/08/2016 PROCEDURE: Sagittal T2, axial T2, sagittal T1, axial | | | T1, sagittal STIR sequences. FINDINGS: Vertebral body heights are | | | preserved. There are 6 lumbar type vertebral bodies. There is | | | disc desiccation at L5-S1 with mild disc height loss. Remaining | | | intervertebral disc spaces are preserved. Imaged spinal cord and | | | cauda equina demonstrate normal signal with no evidence for | | | myelomalacia or mass lesions. The conus medullaris terminates at level | | | , which is normal. T12-L1: No central canal or neural | | | foramina canal stenosis. L1-2: No central canal or neural foramina | | | canal stenosis. L2-3: No central canal or neural foramina canal | | | stenosis. L3-4: No central canal or neural foramina canal | | | stenosis. L4-5: No central canal or neural foramina canal | | | stenosis. L5-L6: Small broad-based posterior disc protrusion with | | | a questionable central annular tear causing mild left neuroforaminal | | | narrowing. Right neuroforamen is borderline narrowed. L6-S1: | | | Question mild to moderate neuroforaminal narrowing on the left due to | | | moderate facet spondylosis. Thecal sac is patent. Right neuroforamen | | | is patent. Imaged abdomen and pelvis demonstrate no acute | | | findings. There appears to be simple appearing large left adnexal | | | cystic lesion, unchanged. IMPRESSION- 1. No acute abnormal | | | findings. No evidence of a cord lesion or abnormal cord signal. | | | Stable MRI since prior examination dated 08/08/2016. 2. Six non | | | rib-bearing lumbar type vertebra. Transitional vertebra with | | | pseudoarthrosis on the right, as previously noted. Apparent mild to | | | moderate left neuroforaminal narrowing at L6-S1. 3. Stable mild | | | posterior disc bulge, eccentric to the right, at L5-L6. Stable | | | appearing mild bilateral neural foraminal narrowing. A | | | preliminary report was sent by [employer] with no significant | | | discrepancy. Dictated and Signed by: Everton May MD | | | Electronically signed: 03/26/2017 12:21 PM | | + + + + + | Procedure Note | + + | Thomas, Rad Results In - 03/26/2017 12:24 PM PDT | | MRI LUMBAR SPINE WITHOUT CONTRAST | | | | CLINICAL INFORMATION: | | Known lumbar disc disease. Patient has had three episodes of urinary | | incontinence. | | | | COMPARISON: | | MRI LUMBAR SPINE WO CONTRAST dated 08/07/2016; MRI LUMBAR SPINE WO | | CONTRAST dated 08/05/2016; Lumbar Spine 4 Vw Min dated 05/28/2016; CT | | ABDOMEN PELVIS W CONTRAST dated 08/08/2016 | | | | PROCEDURE: | | Sagittal T2, axial T2, sagittal T1, axial T1, sagittal STIR sequences. | | | | FINDINGS: | | Vertebral body heights are preserved. There are 6 lumbar type vertebral bodies. | | | | There is disc desiccation at L5-S1 with mild disc height loss. Remaining | | intervertebral disc spaces are preserved. | | | | Imaged spinal cord and cauda equina demonstrate normal signal with no evidence | | for myelomalacia or mass lesions. The conus medullaris terminates at level , | | which is normal. | | | | T12-L1: No central canal or neural foramina canal stenosis. | | | | L1-2: No central canal or neural foramina canal stenosis. | | | | L2-3: No central canal or neural foramina canal stenosis. | | | | L3-4: No central canal or neural foramina canal stenosis. | | | | L4-5: No central canal or neural foramina canal stenosis. | | | | L5-L6: Small broad-based posterior disc protrusion with a questionable central | | annular tear causing mild left neuroforaminal narrowing. Right neuroforamen is | | borderline narrowed. | | | | L6-S1: Question mild to moderate neuroforaminal narrowing on the left due to | | moderate facet spondylosis. Thecal sac is patent. Right neuroforamen is patent. | | | | Imaged abdomen and pelvis demonstrate no acute findings. There appears to be | | simple appearing large left adnexal cystic lesion, unchanged. | | | | IMPRESSION- | | 1. No acute abnormal findings. No evidence of a cord lesion or abnormal cord | | signal. Stable MRI since prior examination dated 08/08/2016. | | 2. Six non rib-bearing lumbar type vertebra. Transitional vertebra with | | pseudoarthrosis on the right, as previously noted. Apparent mild to moderate | | left neuroforaminal narrowing at L6-S1. | | 3. Stable mild posterior disc bulge, eccentric to the right, at L5-L6. Stable | | appearing mild bilateral neural foraminal narrowing. | | | | | | | | A preliminary report was sent by [employer] with no significant | | discrepancy. | | | | Dictated and Signed by: Everton May MD | | Electronically signed: 03/26/2017 12:21 PM | + + + +---------+ + + | Performing | Address | City/State/Zipcode | Phone Number | | Organization | | | | + +---------+ + + | [facility] | | | | + +---------+ + + Urinalysis, Microscopic Only, with Culture if Indicated (03/25/2017 11:29 PM PDT) + + + + + + | Component | Value | Ref Range | Performed | Pathologist | | | | | At | Signature | + + + + + + | White Blood | 2-5 (A) | 0 - 2 /HPF | [facility] | | | Cells, | | | [facility] | | | Urine | | | MEDICAL | | | | | | CENTER - | | | | | | LABORATORY | | + + + + + + | Red Blood | 0-2 | 0 - 2 /HPF | [facility] | | | Cells, | | | [facility] | | | Urine | | | MEDICAL | | | | | | CENTER - | | | | | | LABORATORY | | + + + + + + | Squamous | >100 (A) | 0 - 2 /LPF | [facility] | | | Epithelial | | | [facility] | | | Cells, | | | MEDICAL | | | Urine | | | CENTER - | | | | | | LABORATORY | | + + + + + + | Bacteria, | 1+ (A) | Negative /HPF | [facility] | | | Urine | | | [facility] | | | | | | MEDICAL | | | | | | CENTER - | | | | | | LABORATORY | | + + + + + + | Mucus, | Present (A) | Negative /LPF | [facility] | | | Urine | | | [facility] | | | | | | MEDICAL | | | | | | CENTER - | | | | | | LABORATORY | | + + + + + + + + | Specimen | + + | Urine | + + + + + + + | Performing | Address | City/State/Zipcode | Phone Number | | Organization | | | | + + + + + | [facility] | [address] | [place] | [phone] | | [facility] | | [address] | | | - LABORATORY | | | | + + + + + POCT Test, Urine, QUAL (03/25/2017 11:29 PM PDT) + + + + + [...] + | Internal QC | Acceptable | Acceptable | | | + + + + + + | Specific | | 1.010, 1.015, | | | | [place], | | 1.020, 1.025 | | | | POC | | | | | + + + + + + | Lot Number | | | | | + + + + + + | Expiration | | | | | | Date | | | | | + + + + + + + + | Specimen | + + | Urine | + + POCT Urinalysis Dipstick Automated (03/25/2017 11:29 PM PDT) + + + + + + | Component | Value | Ref Range | Performed | Pathologist | | | | | At | Signature | + + + + + + | Color, UA, | Yellow | Yellow, Light | | | | POC | | Yellow | | | + + + + + + | Clarity, | Clear | | | | | UA, POC | | | | | + + + + + + | Glucose, | Negative | Negative | | | | UA, POC | | | | | + + + + + + | Bilirubin, | Negative | Negative | | | | UA, POC | | | | | + + + + + + | Ketones, | Negative | Negative, 100 | | | | UA, POC | | mg/dL | | | + + + + + + | Specific | 1.025 | 1.001 - 1.030 | | | | [place], | | | | | | UA, POC | | | | | + + + + + + | Blood, UA, | Negative | Negative | | | | POC | | | | | + + + + + + | pH, UA, POC | 5.5 | 5.0, 6.0, 7.0, | | | | | | 8.0, 5.5, 6.5, | | | | | | 7.5 | | | + + + + + + | Protein, | Negative | Negative | | | | UA, POC | | | | | + + + + + + | Urobilinoge | 0.2 | 0.2, Negative, | | | | n, UA, POC | | Normal, < 0.2 | | | | | | mg/dL, 1 mg/dL, | | | | | | < 0.2 E.U./dl, | | | | | | 1.0 E.U./dL, | | | | | | 0.2 mg/dL | | | + + + + + + | Nitrite, | Negative | Negative | | | | UA, POC | | | | | + + + + + + | Leukocyte | Negative | Negative | | | | Esterase, | | | | | | UA, POC | | | | | + + + + + + | Reducing | | | | | | Substances, | | | | | | Urine | | | | | + + + + + + | Bilirubin | | Negative | | | | Confirmatio | | | | | | n by | | | | | | Ictotest, | | | | | | Urine | | | | | + + + + + + | Remark | | | | | + + + + + + + + | Specimen | + + | Urine | + + documented in this encounter Visit Diagnoses + + | Diagnosis | + + | Chronic bilateral low back pain with right-sided sciatica - Primary | + + | Urinary incontinence, unspecified type | + + documented in this encounter Administered Medications + +--------+ +------+------+------+ | Medication Order | MAR | Action | Dose | Rate | Site | | | Action | Date | | | | + +--------+ +------+------+------+ | HYDROmorphone (DILAUDID) 1 | Given | 03/25/20 | 1 mg | | | | mg/mL injection 1 mg 1 mg, | | 17 11:50 | | | | | Intravenous, ONCE, 03/25/17 at | | PM PDT | | | | | 2345, For 1 dose | | | | | | + +--------+ +------+------+------+ +---+---+ | | | +---+---+ + +-------+ +------+---+---+ | HYDROmorphone (DILAUDID) 1 | Given | 03/26/20 | 1 mg | | | | mg/mL injection 1 mg 1 mg, | | 17 12:50 | | | | | Intravenous, EVERY 15 MIN PRN, | | AM PDT | | | | | Pain, Starting 03/25/17 at | | | | | | | 2345, For 4 doses | | | | | | + +-------+ +------+---+---+ +-------+ +------+---+---+ | Given | 03/26/20 | 1 mg | | | | | 17 12:09 | | | | | | AM PDT | | | | +-------+ +------+---+---+ +---+---+ | | | +---+---+ + +-------+ +------+---+---+ | LORazepam (ATIVAN) injection 1 | Given | 03/26/20 | 1 mg | | | | mg 1 mg, Intravenous, ONCE, Fri | | 17 12:06 | | | | | 03/25/17 at 2345, For 1 dose | | AM PDT | | | | + +-------+ +------+---+---+ +---+---+ | | | +---+---+ + +-------+ +------+---+---+ | LORazepam (ATIVAN) injection 1 | Given | 03/26/20 | 1 mg | | | | mg 1 mg, Intravenous, ONCE, Sat | | 17 12:50 | | | | | 03/26/17 at 0030, For 1 dose | | AM PDT | | | | + +-------+ +------+---+---+ +---+---+ | | | +---+---+ documented in this encounter
--- OUTSIDE RECORDS SUMMARY | ~2019-10-30 | XMS | Encounter Summary ---
Demographics + + + | Address | [address] | | | [place] [address] | + + + | Home Phone | | + + + | Preferred Language | Unknown | + + + | Marital Status | Single | + + + | Yazidism Affiliation | 1013 | + + + | Race | Unknown | + + + | Ethnic Group | Unknown | + + + Author + + + | Author | [facility] | | | and [place] | + + + | Organization | [facility] | | | [...] | | | | | [place] [address] | | + + + + + | Absweta Bunch | ECON | Unknown | | + + + + + Care Team Providers + +------+ + | Care Hood Fitter Name | Role | Phone | + +------+ + | Pj Abdi MD | PCP | | + +------+ + Reason for Visit + + + | Reason | Comments | + + + | Numbness | left leg | + + + Encounter Details +--------+ + + + + | Date | Type | Department | Care Team | Description | +--------+ + + + + | 04/09/ | Telephone | [facility] | Pj Abdi, | Numbness (left leg) | | 2019 | | [facility] [place] | [address] | | | | | [address] | [place] | | | | | [place] | [address] | | | | | [address] | | | | | | [phone] | | | +--------+ + + + [...]
--- OUTSIDE RECORDS SUMMARY | ~2019-10-30 | XMS | Encounter Summary ---
Demographics + + + | Address | [address] | | | [place] [address] | + + + | Home Phone [...] Author + + + | Author | [facility] | | | and Jhonana | + + + | Organization | [facility] | | | and [...] | | | | | [place] [address] | | + + + + + | Ab Bunch | ECON | Unknown | | + + + + + Care Team Providers + +------+ + | Care Hydraulic Riveter Name | Role | Phone | + +------+ + | Mike Fernández MD | PCP | | + +------+ + Encounter Details +--------+ + + + + | Date | Type | Department | Care Team | Description | +--------+ + + + + | 03/02/ | Hospital | [facility] | Eric Lozano, | | | 2012 | Encounter | [facility] | MD [address] | | | | | CENTER [address] | [place], [place] | | | | | [place], [place] | [address] | | | | | [address] | | | | | | [phone] | | | +--------+ + + + + Social History + + + +--------+------+ | Tobacco Use | Types | Packs/Day | Years | Date | | | | | Used | | + + + +--------+------+ | Current Every Day | Cigarettes | 1 | | | | Smoker | | | | | + + + +--------+------+ + + | Comments: refused | + + + + +---------+ + | Alcohol Use | Drinks/Week | oz/Week | Comments | + + +---------+ + | No | | | | + + +---------+ + [...] + + + +---------+ + + | FLUoxetine | Take 1 capsule by | 30 | 1 | 01/19/20 | | | (PROZAC) 20 mg | mouth Daily. | capsule | | 13 | 6 | | capsule | | | | | | + + + +---------+ + + | VITAMINS | TABS Take 1 tablet | | 0 | 02/02/20 | | | PO | by mouth daily | | | 12 | 6 | + + + +---------+ + + | promethazine | Take 1 tablet by | 8 | 0 | 06/28/19 | | | (PHENERGAN) 25 mg | mouth every 8 hours | tablet | | 13 | 4 | | tabletIndications: | as needed for Nausea | | | | | | Gastroenteritis, | for 8 doses. | | | | | | acute | | | | | | + + + +---------+ + + documented as of this encounter Plan of Treatment Not on filedocumented as of this encounter Visit Diagnoses Not on filedocumented in this encounter"
--- OUTSIDE RECORDS SUMMARY | ~2019-10-30 | XMS | Encounter Summary ---
Demographics + + + | Address | [address] | | | [place] [address] | + + + | Home Phone | | + + + | Preferred Language | Unknown | + + + | Marital Status | Single | + + + | Uatsdin Affiliation | 1013 | + + + | Race | Unknown | + + + | Ethnic Group | Unknown | + + + Author + + + | Author | [facility] | | | and Johnana | + + + | Organization | [facility] | | | and [...] | | | | | [place] [address] | | + + + + + | Ab Romykia | ECON | Unknown | | + + + + + Care Team Providers + +------+ + | Care Hook And Eye Machine Operator Name | Role | Phone | [...] Description | +--------+--------+ + + + | 04/26/ | Refill | [facility] | Pj Abdi, | Medication Refill | | 2016 | | [facility] [place] | [address] | | | | | [address] | [place] | | | | | [place] | [address] | | | | | [address] | | | | | | [phone] | | | +--------+--------+ + + + [...]
--- OUTSIDE RECORDS SUMMARY | ~2019-10-30 | XMS | Encounter Summary ---
Demographics + + + | Address | [address] | | | [place] [address] | + + + | Home Phone | | + + + | Preferred Language | Unknown | + + + | Marital Status | Single | + + + | Amish Affiliation | 1013 | + + + | Race | Unknown | + + + | Ethnic Group | Unknown | + + + Author + + + | Author | [facility] | | | and [place] | + + + | Organization | [facility] | | | and [...] | | | | | [place] [address] | | + + + + + | Ab Bunch | ECON | Unknown | | + + + + + Care Team Providers + +------+ + | Care Ash Pit Worker Name | Role | Phone | + +------+ + | John Rhodes | PCP | | + +------+ + Reason for Referral Evaluate & Treat (Routine) +--------+ + + + + + | Status | Reason | Specialty | Diagnoses / | Referred By | Referred To | | | | | Procedures | Contact | Contact | +--------+ + + + + + | Closed | Specialty | Urology | Diagnoses | Ramoler, | Sim, | | | Services | | Back pain, | Stas | Jesse Yarbrough MD | | | Required | | unspecified | MD Mike | [address] | | | | | back | [address] | [place] | | | | | location, | [place] | [place], [place] | | | | | unspecified | [place], [place] | [address] Phone: | | | | | back pain | [id number] | [phone] | | | | | laterality, | Phone: | Fax: | | | | | unspecified | [phone] | [phone] | | | | | chronicity | Fax: | | | | | | Urinary | [phone] | | | | | | retention | | | +--------+ + + + + + Reason for Visit + + + | Reason | Comments | + + + | Back Pain | | + + + Encounter Details +--------+ + + + + | Date | Type | Department | Care Team | Description | +--------+ + + + + | 08/07/ | Emergency | [facility] | [facility]as [facility] | Back pain, | | 2017 - | | [facility] | MD Mike [address] | unspecified back | | | | CENTER [address] | [facility] | location, | | 08/08/ | | [place] | [place] [address] | unspecified back | | 2017 | | [address] | [phone] | pain laterality, | | | | [phone] | | unspecified | | | | | | chronicity (Primary | | | | | | Dx) | +--------+ + + + + Social History + + + +--------+------+ | Tobacco Use | Types | Packs/Day | Years | Date | | | | | Used | | + + + +--------+------+ | Current Every Day | Cigarettes | 1 | 12 | | | Smoker | [...] + + + | Blood Pressure | 130/76 | 08/08/2016 3:58 AM | | | | | PDT | | + + + + + | Pulse | 71 | 08/08/2016 3:57 AM | | | | | PDT | | + + + + + | Temperature | 36.6 C (97.8 F) | 08/07/2016 10:57 PM | | | | | PDT | | + + + + + | Respiratory Rate | 16 | 08/07/2016 10:57 PM | | | | | PDT | | + + + + + | Oxygen Saturation | 96% | 08/08/2016 3:57 AM | | | | | PDT | | + + + + + | Inhaled Oxygen | - | - | | | Concentration | | | | + + + + + | Weight | 54.4 kg (120 lb) | 08/07/2016 10:57 PM | | | | | PDT | | + + + + + | Height | 162.6 cm (5' 4") | 08/07/2016 10:57 PM | | | | | PDT | | + + + + + | Body Mass Index | 20.6 | 08/07/2016 10:57 PM | | | | | PDT | | + + + + + documented in this encounter Discharge Instructions AttachmentsThe following attachments cannot be sent through Care Everywhere.BACK CARE TIPS ([place])BACK PAIN (ACUTE OR CHRONIC) ([place])URINARY RETENTION, FEMALE ([place])documented in this encounter Medications at Time of Discharge + + + +---------+ + + | Medication | Sig | Dispensed | Refills | Start | End Date | | | | | | Date | | + + + +---------+ + + | citalopram | Take 10 mg by mouth | | 0 | | | | (CELEXA) 10 mg | Daily. | | | | 7 | | tablet | | | | | | + + + +---------+ + + | | Take 1 tablet by | 15 | 0 | 08/06/19 | | | HYDROcodone-acetamin | mouth every 6 hours | tablet | | 17 | 7 | | ophen (NORCO) 5-325 | as needed for Pain. | | | | | | mg per tablet | | | | | | + + + +---------+ + + | hydrOXYzine | Take 25 mg by mouth | | 0 | | | | hydrochloride | every 6 hours as | | | | 7 | | (ATARAX) 25 mg | needed for Itching | | | | | | tablet | or Anxiety. | | | | | + + + +---------+ + + | methocarbamol | Take 750 mg by mouth | | 0 | | | | (ROBAXIN) 750 mg | 3 times daily as | | | | 7 | | tablet | needed for Muscle | | | | | | | spasms. | | | | | + + + +---------+ + + | methylPREDNISolone | Follow package | 21 | 0 | 08/06/19 | | | (MEDROL DOSEPAK) 4 | directions. | tablet | | 17 | 7 | | mg tablet | | | | | | + + + +---------+ + + | naproxen | Take 500 mg by mouth | | 0 | | | | (NAPROSYN) 500 mg | 2 times daily (with | | | | 7 | | tablet | breakfast & | | | | | | | dinner). | | | | | + + + +---------+ + + | nortriptyline | Take 75 mg by mouth | | 0 | | | | (PAMELOR) 75 mg | nightly. | | | | 7 | | capsule | | | | | | + + + +---------+ + + | ondansetron | Take 4 mg by mouth | | 0 | | | | (ZOFRAN ODT) 4 mg | every 8 hours as | | | | 7 | | disintegrating | needed for Nausea. | | | | | | tablet | | | | | | + + + +---------+ + + | traMADol (ULTRAM) | Take 1 tablet by | 20 | 0 | 08/07/19 | | | 50 mg tablet | mouth every 8 hours | tablet | | 17 | 7 | | | as needed for Pain. | | | | | + + + +---------+ + + documented as of this encounter Plan of Treatment + +------+--------+ + + | Name | Type | Priori | Associated Diagnoses | Date/Time | | | | ty | | | + +------+--------+ + + | ED INFORMATION | CELSO | Routin | | 08/07/2016 10:55 PM | | EXCHANGE | | e | | PDT | + +------+--------+ + + + + +--------+ + + | Name | Type | Priori | Associated Diagnoses | Order Schedule | | | | ty | | | + + +--------+ + + | Urology, External - | Outpatient | Routin | Back pain, | Ordered: 08/08/2016 | | AMB Referral | Referral | e | unspecified back | | | | | | location, | | | | | | unspecified back | | | | | | pain laterality, | | | | | | unspecified | | | | | | chronicity | | + + +--------+ + + documented as of this encounter Procedures + +--------+ + + + | Procedure Name | Priori | Date/Time | Associated Diagnosis | Comments | | | ty | | | | + +--------+ + + + | MRI THORACIC SPINE | STAT | 08/08/2016 | | Results for this | | WO CONTRAST | | 4:30 AM | | procedure are in the | | | | PDT | | results section. | + +--------+ + + + | MRI CERVICAL SPINE | STAT | 08/08/2016 | | Results for this | | WO CONTRAST | | 4:30 AM | | procedure are in the | | | | PDT | | results section. | + +--------+ + + + | EXTRA GREEN TOP TUBE | Routin | 08/08/2016 | | Results for this | | | e | 3:03 AM | | procedure are in the | | | | PDT | | results section. | + +--------+ + + + | EXTRA BLUE TOP TUBE | Routin | 08/08/2016 | | Results for this | | | e | 3:03 AM | | procedure are in the | | | | PDT | | results section. | + +--------+ + + + | SEDIMENTATION RATE | STAT | 08/08/2016 | | Results for this | | | | 3:03 AM | | procedure are in the | | | | PDT | | results section. | + +--------+ + + + | CBC WITH | STAT | 08/08/2016 | | Results for this | | DIFFERENTIAL | | 3:03 AM | | procedure are in the | | | | PDT | | results section. | + +--------+ + + + | C-REACTIVE PROTEIN, | STAT | 08/08/2016 | | Results for this | | HIGH SENSITIVITY | | 3:03 AM | | procedure are in the | | | | PDT | | results section. | + +--------+ + + + | , SERUM, | STAT | 08/08/2016 | | Results for this | | QUAL | | 3:03 AM | | procedure are in the | | | | PDT | | results section. | + +--------+ + + + | COMPREHENSIVE | STAT | 08/08/2016 | | Results for this | | METABOLIC PANEL | | 3:03 AM | | procedure are in the | | | | PDT | | results section. | + +--------+ + + + | CT ABDOMEN PELVIS W | Routin | 08/08/2016 | | Results for this | | CONTRAST | e | 2:54 AM | | procedure are in the | | | | PDT | | results section. | + +--------+ + + + | URINALYSIS WITH | STAT | 08/08/2016 | | Results for this | | MICROSCOPIC WITH | | 2:52 AM | | procedure are in the | | CULTURE IF INDICATED | | PDT | | results section. | + +--------+ + + + | MRI LUMBAR SPINE WO | STAT | 08/08/2016 | | Results for this | | CONTRAST | | 12:35 AM | | procedure are in the | | | | PDT | | results section. | + +--------+ + + + | ED INFORMATION | Routin | 08/07/2016 | | | | EXCHANGE | e | 10:55 PM | | | | | | PDT | | | + +--------+ + + + documented in this encounter Results MRI Cervical Spine wo Contrast (08/08/2016 4:30 AM PDT) + + | Specimen | + + | | + + + + + | Narrative | Performed At | + + + | EXAM: MRI LUMBAR CERVICAL, THORACIC, AND SPINE WO CONTRAST dated | [facility] | | 08/07/2016 12:00 AM HISTORY:BACK PAIN COMPARISON: Lumbar | | | spine MRI dated August 05, 2016. Lumbar spine radiograph November 12, | | | 2015. TECHNIQUE: Multiplanar multisequence MR imaging of the | | | cervical, thoracic lumbar spine without contrast. This is performed | | | on a 3Tesla MRI scanner. FINDINGS: CERVICAL: There is no | | | scoliosis. There is no significant spondylolisthesis. Mild disc | | | desiccation and narrowing at C5-C6. Mild disc desiccation at C2-C3, | | | C3-C4, C4-C5, and C6-C7. No endplate degenerative changes. The | | | cord has normal size, signal, contour throughout its visible course. | | | Limited evaluation of the posterior fossa contents is unremarkable. | | | No precervical soft tissue thickening. The following levels | | | are evaluated in the axial plane: C2-C3: No significant spinal | | | canal stenosis or neural foraminal narrowing. C3-C4: No | | | significant spinal canal stenosis or neural foraminal narrowing. | | | C4-C5: No significant spinal canal stenosis or neural foraminal | | | narrowing. C5-C6: Small central disc protrusion and annular tear. | | | No significant narrowing of the central spinal canal or neural | | | foramen. C6-C7: Small central disc protrusion. Mild narrowing of | | | the central spinal canal. The neural foramen are patent. | | | C7-T1: No significant spinal canal stenosis or neural foraminal | | | narrowing. The visible paracervical soft tissues are | | | unremarkable. THORACIC: No scoliosis. No | | | spondylolisthesis. No significant endplate degenerative changes. | | | No compression deformities. No significant disc narrowing or | | | desiccation. The cord has normal size, signal, and contour | | | throughout its visible course. The central spinal canal and neural | | | foramen are patent at all levels. The surrounding soft tissues are | | | unremarkable. LUMBAR: There is lumbosacral changes anatomy. | | | There is a right-sided lumbosacral pseudoarthrosis. No | | | significant scoliosis. There is no spondylolisthesis. There is | | | mild disc desiccation and disc narrowing at L5-S1. No compression | | | deformities. No endplate degenerative changes. The conus | | | terminates at the L1 level. The visible distal cord is unremarkable. | | | T12-L1 through L2-L3 are unremarkable as seen on the sagittal | | | sequence. The following levels are evaluated in the axial plane: | | | L3-4: No significant central stenosis or neural foraminal | | | narrowing. L4-5: No significant central stenosis or neural | | | foraminal narrowing. Mild facet arthrosis bilaterally. L5-S1: | | | Central disc protrusion. High signal suggesting an annular tear. | | | Mild narrowing of the central spinal canal. Mild facet arthrosis | | | bilaterally. The neural foramen are patent. The visible | | | paravertebral soft tissues are significant for a urine distended | | | bladder. 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 IMPRESSION - Mild | | | cervical spondylosis with small central disc protrusions at C5-C6 and | | | C6-C7. Small annular tear at C5-C6. Unremarkable thoracic spine | | | MRI. Stable disc protrusion at L5-S1 with mild there of the | | | central spinal canal. No significant interval change. Urine | | | distended bladder. The preliminary report*provided by Dr. Cuevas on | | | August 08, 2016 at 1:15 AM and 08/08/2016 5:08:00 AM. Dictated and | | | Signed by: Nikko Nickerson MD Electronically signed: 08/08/2016 | | | 2:28 PM | | + + + + + | Procedure Note | + + | Honorio, Rad Results In - 08/08/2016 2:32 PM PDT EXAM: MRI LUMBAR CERVICAL, THORACIC, | | AND SPINE WO CONTRAST dated 08/07/2016 12:00AMHISTORY:BACK PAINCOMPARISON: Lumbar spine | | MRI dated August 05, 2016. Lumbar spine radiographJune 2015.TECHNIQUE: Multiplanar | | multisequence MR imaging of the cervical, thoracic lumbarspine without contrast. This | | is performed on a 3Tesla MRI scanner. FINDINGS:CERVICAL: There is no scoliosis. There | | is no significant spondylolisthesis. Mild disc desiccation and narrowing at C5-C6. Mild | | disc desiccation at C2-C3,C3-C4, C4-C5, and C6-C7. No endplate degenerative changes. | | The cord has normalsize, signal, contour throughout its visible course. Limited | | evaluation of theposterior fossa contents is unremarkable. No precervical soft | | tissuethickening.The following levels are evaluated in the axial plane:C2-C3: No | | significant spinal canal stenosis or neural foraminal narrowing. C3-C4: No significant | | spinal canal stenosis or neural foraminal narrowing. C4-C5: No significant spinal canal | | stenosis or neural foraminal narrowing. C5-C6: Small central disc protrusion and annular | | tear. No significant narrowingof the central spinal canal or neural foramen.C6-C7: | | Small central disc protrusion. Mild narrowing of the central spinalcanal. The neural | | foramen are patent.C7-T1: No significant spinal canal stenosis or neural foraminal | | narrowing. The visible paracervical soft tissues are unremarkable.THORACIC:No scoliosis. | | No spondylolisthesis. No significant endplate degenerativechanges. No compression | | deformities. No significant disc narrowing ordesiccation. The cord has normal size, | | signal, and contour throughout itsvisible course. The central spinal canal and neural | | foramen are patent at alllevels. The surrounding soft tissues are unremarkable.LUMBAR: | | There is lumbosacral changes anatomy. There is a right-sidedlumbosacral | | pseudoarthrosis. No significant scoliosis. There is nospondylolisthesis. There is | | mild disc desiccation and disc narrowing at L5-S1. No compression deformities. No | | endplate degenerative changes. The conusterminates at the L1 level. The visible distal | | cord is unremarkable. [id number] L2-L3 are unremarkable as seen on the sagittal | | sequence.The following levels are evaluated in the axial plane:L3-4: No significant | | central stenosis or neural foraminal narrowing. L4-5: No significant central stenosis or | | neural foraminal narrowing. Mild facetarthrosis bilaterally.L5-S1: Central disc | | protrusion. High signal suggesting an annular tear. Mildnarrowing of the central | | spinal canal. Mild facet arthrosis bilaterally. Theneural foramen are patent. The | | visible paravertebral soft tissues are significant for a urine distendedbladder. Tarlov | | cyst at S2 level.IMPRESSION - Mild cervical spondylosis with small central disc | | protrusions at C5-C6 andC6-C7. Small annular tear at C5-C6.Unremarkable thoracic spine | | MRI.Stable disc protrusion at L5-S1 with mild there of the central spinal canal. | | Nosignificant interval change.Urine distended bladder.The preliminary report*provided by | | Dr. Cuevas on August 08, 2016 at 1:15 AM and08/08/2016 5:08:00 AM.Dictated and Signed by: | | Nikko Nickerson MD Electronically signed: 08/08/2016 2:28 PM | | | |THORACIC: | | | |No scoliosis. No spondylolisthesis. No significant endplate degenerative | |changes. No compression deformities. No significant disc narrowing or | |desiccation. The cord has normal size, signal, and contour throughout its | |visible course. The central spinal canal and neural foramen are patent at all | |levels. The surrounding soft tissues are unremarkable. | | | | | |LUMBAR: There is lumbosacral changes anatomy. There is a right-sided | |lumbosacral pseudoarthrosis. No significant scoliosis. There is no | |spondylolisthesis. There is mild disc desiccation and disc narrowing at L5-S1. | |No compression deformities. No endplate degenerative changes. The conus | |terminates at the L1 level. The visible distal cord is unremarkable. T12-L1 | |through L2-L3 are unremarkable as seen on the sagittal sequence. | | | |The following levels are evaluated in the axial plane: | | | |L3-4: No significant central stenosis or neural foraminal narrowing. | | | |L4-5: No significant central stenosis or neural foraminal narrowing. Mild facet | |arthrosis bilaterally. | | | |L5-S1: Central disc protrusion. High signal suggesting an annular tear. Mild | |narrowing of the central spinal canal. Mild facet arthrosis bilaterally. The | |neural foramen are patent. | | | |The visible paravertebral soft tissues are significant for a urine distended | |bladder. 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 | | | | | |IMPRESSION - | | | |Mild cervical spondylosis with small central disc protrusions at C5-C6 and | |C6-C7. Small annular tear at C5-C6. | | | |Unremarkable thoracic spine MRI. | | | |Stable disc protrusion at L5-S1 with mild there of the central spinal canal. No | |significant interval change. | | | |Urine distended bladder. | | | |The preliminary report*provided by Dr. Cuevas on August 08, 2016 at 1:15 AM and | |08/08/2016 5:08:00 AM. | | | |Dictated and Signed by: Nikko Nickerson MD | | Electronically signed: 08/08/2016 2:28 PM | + + + +---------+ + + | Performing | Address | City/State/Zipcode | Phone Number | | Organization | | | | + +---------+ + + | [facility] | | | | + +---------+ + + MRI Thoracic Spine wo Contrast (08/08/2016 4:30 AM PDT) + + | Specimen | + + | | + + + + + | Narrative | Performed At | + + + | EXAM: MRI LUMBAR CERVICAL, THORACIC, AND SPINE WO CONTRAST dated | [facility] | | 08/07/2016 12:00 AM HISTORY:BACK PAIN COMPARISON: Lumbar | | | spine MRI dated August 05, 2016. Lumbar spine radiograph November 12 | | | 2016. TECHNIQUE: Multiplanar multisequence MR imaging of the | | | cervical, thoracic lumbar spine without contrast. This is performed | | | on a 3Tesla MRI scanner. FINDINGS: CERVICAL: There is no | | | scoliosis. There is no significant spondylolisthesis. Mild disc | | | desiccation and narrowing at C5-C6. Mild disc desiccation at C2-C3, | | | C3-C4, C4-C5, and C6-C7. No endplate degenerative changes. The | | | cord has normal size, signal, contour throughout its visible course. | | | Limited evaluation of the posterior fossa contents is unremarkable. | | | No precervical soft tissue thickening. The following levels | | | are evaluated in the axial plane: C2-C3: No significant spinal | | | canal stenosis or neural foraminal narrowing. C3-C4: No | | | significant spinal canal stenosis or neural foraminal narrowing. | | | C4-C5: No significant spinal canal stenosis or neural foraminal | | | narrowing. C5-C6: Small central disc protrusion and annular tear. | | | No significant narrowing of the central spinal canal or neural | | | foramen. C6-C7: Small central disc protrusion. Mild narrowing of | | | the central spinal canal. The neural foramen are patent. | | | C7-T1: No significant spinal canal stenosis or neural foraminal | | | narrowing. The visible paracervical soft tissues are | | | unremarkable. THORACIC: No scoliosis. No | | | spondylolisthesis. No significant endplate degenerative changes. | | | No compression deformities. No significant disc narrowing or | | | desiccation. The cord has normal size, signal, and contour | | | throughout its visible course. The central spinal canal and neural | | | foramen are patent at all levels. The surrounding soft tissues are | | | unremarkable. LUMBAR: There is lumbosacral changes anatomy. | | | There is a right-sided lumbosacral pseudoarthrosis. No | | | significant scoliosis. There is no spondylolisthesis. There is | | | mild disc desiccation and disc narrowing at L5-S1. No compression | | | deformities. No endplate degenerative changes. The conus | | | terminates at the L1 level. The visible distal cord is unremarkable. | | | T12-L1 through L2-L3 are unremarkable as seen on the sagittal | | | sequence. The following levels are evaluated in the axial plane: | | | L3-4: No significant central stenosis or neural foraminal | | | narrowing. L4-5: No significant central stenosis or neural | | | foraminal narrowing. Mild facet arthrosis bilaterally. L5-S1: | | | Central disc protrusion. High signal suggesting an annular tear. | | | Mild narrowing of the central spinal canal. Mild facet arthrosis | | | bilaterally. The neural foramen are patent. The visible | | | paravertebral soft tissues are significant for a urine distended | | | bladder. 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 IMPRESSION - Mild | | | cervical spondylosis with small central disc protrusions at C5-C6 and | | | C6-C7. Small annular tear at C5-C6. Unremarkable thoracic spine | | | MRI. Stable disc protrusion at L5-S1 with mild there of the | | | central spinal canal. No significant interval change. Urine | | | distended bladder. The preliminary report*provided by Dr. Cuevas on | | | August 08, 2016 at 1:15 AM and 08/08/2016 5:08:00 AM. Dictated and | | | Signed by: Nikko Nickerson MD Electronically signed: 08/08/2016 | | | 2:29 PM | | + + + + + | Procedure Note | + + | Honorio, Rad Results In - 08/08/2016 2:32 PM PDT EXAM: MRI LUMBAR CERVICAL, THORACIC, | | AND SPINE WO CONTRAST dated 08/07/2016 12:00AMHISTORY:BACK PAINCOMPARISON: Lumbar spine | | MRI dated August 05, 2016. Lumbar spine radiographJune 2015.TECHNIQUE: Multiplanar | | multisequence MR imaging of the cervical, thoracic lumbarspine without contrast. This | | is performed on a 3Tesla MRI scanner. FINDINGS:CERVICAL: There is no scoliosis. There | | is no significant spondylolisthesis. Mild disc desiccation and narrowing at C5-C6. Mild | | disc desiccation at C2-C3,C3-C4, C4-C5, and C6-C7. No endplate degenerative changes. | | The cord has normalsize, signal, contour throughout its visible course. Limited | | evaluation of theposterior fossa contents is unremarkable. No precervical soft | | tissuethickening.The following levels are evaluated in the axial plane:C2-C3: No | | significant spinal canal stenosis or neural foraminal narrowing. C3-C4: No significant | | spinal canal stenosis or neural foraminal narrowing. C4-C5: No significant spinal canal | | stenosis or neural foraminal narrowing. C5-C6: Small central disc protrusion and annular | | tear. No significant narrowingof the central spinal canal or neural foramen.C6-C7: | | Small central disc protrusion. Mild narrowing of the central spinalcanal. The neural | | foramen are patent.C7-T1: No significant spinal canal stenosis or neural foraminal | | narrowing. The visible paracervical soft tissues are unremarkable.THORACIC:No scoliosis. | | No spondylolisthesis. No significant endplate degenerativechanges. No compression | | deformities. No significant disc narrowing ordesiccation. The cord has normal size, | | signal, and contour throughout itsvisible course. The central spinal canal and neural | | foramen are patent at alllevels. The surrounding soft tissues are unremarkable.LUMBAR: | | There is lumbosacral changes anatomy. There is a right-sidedlumbosacral | | pseudoarthrosis. No significant scoliosis. There is nospondylolisthesis. There is | | mild disc desiccation and disc narrowing at L5-S1. No compression deformities. No | | endplate degenerative changes. The conusterminates at the L1 level. The visible distal | | cord is unremarkable. [id number] L2-L3 are unremarkable as seen on the sagittal | | sequence.The following levels are evaluated in the axial plane:L3-4: No significant | | central stenosis or neural foraminal narrowing. L4-5: No significant central stenosis or | | neural foraminal narrowing. Mild facetarthrosis bilaterally.L5-S1: Central disc | | protrusion. High signal suggesting an annular tear. Mildnarrowing of the central | | spinal canal. Mild facet arthrosis bilaterally. Theneural foramen are patent. The | | visible paravertebral soft tissues are significant for a urine distendedbladder. Tarlov | | cyst at S2 level.IMPRESSION - Mild cervical spondylosis with small central disc | | protrusions at C5-C6 andC6-C7. Small annular tear at C5-C6.Unremarkable thoracic spine | | MRI.Stable disc protrusion at L5-S1 with mild there of the central spinal canal. | | Nosignificant interval change.Urine distended bladder.The preliminary report*provided by | | Dr. Cuevas on August 08, 2016 at 1:15 AM and08/08/2016 5:08:00 AM.Dictated and Signed by: | | Nikko Nickerson MD Electronically signed: 08/08/2016 2:29 PM | | | |THORACIC: | | | |No scoliosis. No spondylolisthesis. No significant endplate degenerative | |changes. No compression deformities. No significant disc narrowing or | |desiccation. The cord has normal size, signal, and contour throughout its | |visible course. The central spinal canal and neural foramen are patent at all | |levels. The surrounding soft tissues are unremarkable. | | | | | |LUMBAR: There is lumbosacral changes anatomy. There is a right-sided | |lumbosacral pseudoarthrosis. No significant scoliosis. There is no | |spondylolisthesis. There is mild disc desiccation and disc narrowing at L5-S1. | |No compression deformities. No endplate degenerative changes. The conus | |terminates at the L1 level. The visible distal cord is unremarkable. T12-L1 | |through L2-L3 are unremarkable as seen on the sagittal sequence. | | | |The following levels are evaluated in the axial plane: | | | |L3-4: No significant central stenosis or neural foraminal narrowing. | | | |L4-5: No significant central stenosis or neural foraminal narrowing. Mild facet | |arthrosis bilaterally. | | | |L5-S1: Central disc protrusion. High signal suggesting an annular tear. Mild | |narrowing of the central spinal canal. Mild facet arthrosis bilaterally. The | |neural foramen are patent. | | | |The visible paravertebral soft tissues are significant for a urine distended | |bladder. 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 | | | | | |IMPRESSION - | | | |Mild cervical spondylosis with small central disc protrusions at C5-C6 and | |C6-C7. Small annular tear at C5-C6. | | | |Unremarkable thoracic spine MRI. | | | |Stable disc protrusion at L5-S1 with mild there of the central spinal canal. No | |significant interval change. | | | |Urine distended bladder. | | | |The preliminary report*provided by Dr. Cuevas on August 08, 2016 at 1:15 AM and | |08/08/2016 5:08:00 AM. | | | |Dictated and Signed by: Nikko Nickerson MD | | Electronically signed: 08/08/2016 2:29 PM | + + + +---------+ + + | Performing | Address | City/State/Zipcode | Phone Number | | Organization | | | | + +---------+ + + | [facility] | | | | + +---------+ + + Extra Blue Top Tube (08/08/2016 3:03 AM PDT) + +-------+ + + + | Component | Value | Ref Range | Performed | Pathologist | | | | | At | Signature | + +-------+ + + + | Extra Blue | Done | | [facility] | | | Top Tube | | | [facility] | | | | [...] + | [facility] | [address] | [place] | [phone] | | [facility] | | [address] | | | - LABORATORY | | | | + + + + + Extra Green Top Tube (08/08/2016 3:03 AM PDT) + +-------+ + + + | Component | Value | Ref Range | Performed | Pathologist | | | | | At | Signature | + +-------+ + + + | Extra Green | Done | | [facility] | | | Top Tube | | | [facility] | | | | [...] ST. | [address] | [place] | [phone] | | [facility] | | [address] | | | - LABORATORY | | | | + + + + + , Serum, Qual (08/08/2016 3:03 AM PDT) + + + + + + | Component | Value | Ref Range | Performed | Pathologist | | | | | At | Signature | + + + + + + | hCG Screen, | Negative | Negative | [facility] | | | Serum | | | [facility] | | [...] + + | [facility] | [address] | [place] | [phone] | | [facility] | | [address] | | | - LABORATORY | | | | + + + + + C-Reactive Protein, High Sensitivity (08/08/2016 3:03 AM PDT) + +-------+ + + + | Component | Value | Ref Range | Performed | Pathologist | | | | | At | Signature | + +-------+ + + + | CRP, High | 0.68 | <=3.00 mg/L | [facility] | | | Sensitive | | | [facility] | | [...] + | [facility] | [address] | [place] | [phone] | | [facility] | | [address] | | | - LABORATORY | | | | + + + + + Sedimentation Rate (08/08/2016 3:03 AM PDT) + +-------+ + + + | Component | Value | Ref Range | Performed | Pathologist | | | | | At | Signature | + +-------+ + + + | Erythrocyte | 7 | <20 mm/hr | [facility] | | | | | | [facility] | | | Sedimentati | | | MEDICAL | | | on Rate | | | CENTER - | | [...] [address] | [place] | [phone] | | [facility] | | [address] | | | - LABORATORY | | | | + + + + + Comprehensive Metabolic Panel (08/08/2016 3:03 AM PDT) + + + + + + | Component | Value | Ref Range | Performed | Pathologist | | | | | At | Signature | + + + + + + | Na | 140 | 136 - 149 | [facility] | | | | | mmol/L | [facility] | | | | | | [facility] | | | | | | CENTER - | | | | | | LABORATORY | | + + + + + + | K | 3.2 (L) | 3.5 - 5.1 | [facility] | | | | | mmol/L | [facility] | | | | | | [facility] | | | | | | CENTER - | | | | | | LABORATORY | | + + + + + + | Cl | 107 | 98 - 109 mmol/L | [facility] | | | | | | [facility] | | | | | | [facility] | | | | | | CENTER - | | | | | | LABORATORY | | + + + + + + | CO2 | 24 | 24 - 31 mmol/L | [facility] | | | | | | [facility] | | | | | | [facility] | | | | | | CENTER - | | | | | | LABORATORY | | + + + + + + | Anion Gap | 9 | 3 - 16 mmol/L | [facility] | | | | | | [facility] | | | | | | [facility] | | | | | | CENTER - | | | | | | LABORATORY | | + + + + + + | Glucose | 122 (H) | 70 - 109 mg/dL | [facility] | | | | | | [facility] | | | | | | [facility] | | | | | | CENTER - | | | | | | LABORATORY | | + + + + + + | BUN | 4 (L) | 7 - 18 mg/dL | [facility] | | | | | | [facility] | | | | | | [facility] | | | | | | CENTER - | | | | | | LABORATORY | | + + + + + + | Creatinine | 0.56 (L) | 0.60 - 1.30 | [facility] | [...] | | | FILTRATION | mL/min/1.73m2 | [facility] | | | [facility] | RATE,ESTIMATED | | MEDICAL | | | | mL/min/[id number] than | | CENTER - | | [...] + + + + | Calcium | 8.4 | 8.3 - 10.5 | [facility] | | | | | mg/dL | [facility] | | | | | | [facility] | | | | | | CENTER - | | | | | | LABORATORY | | + + + + + + | Albumin | 3.2 | 3.2 - 5.0 g/dL | [facility] | | | | | | [facility] | | | | | | [facility] | | | | | | CENTER - | | | | | | LABORATORY | | + + + + + + | Bilirubin | 0.5 | 0.1 - 1.5 mg/dL | [facility] | | | Total | | | [facility] | | | | | | [facility] | | | | | | CENTER - | | | | | | LABORATORY | | + + + + + + | Total | 5.5 (L) | 6.0 - 7.8 g/dL | [facility] | | | Protein | | | [facility] | | | | | | [facility] | | | | | | CENTER - | | | | | | LABORATORY | | + + + + + + | AST | 14 | 10 - 42 U/L | [facility] | | | | | | [facility] | | | | | | [facility] | | | | | | CENTER - | | | | | | LABORATORY | | + + + + + + | ALT | 15 | 6 - 45 U/L | [facility] | | | | | | [facility] | | | | | | [facility] | | | | | | CENTER - | | | | | | LABORATORY | | + + + + + + | Alkaline | 59 | 40 - 110 U/L | [facility] | | | Phosphatase | | | [facility] | | | | | | [facility] | | | | | | CENTER - | | | | | | LABORATORY | | + + + + + + | Globulin | 2.3 | 2.1 - 3.8 g/dL | [facility] | | | | | | [facility] | | | | | | [facility] | | | | | | CENTER - | | | | | | LABORATORY | | + + + + + + | Albumin/Bianca | 1.4 | 0.8 - 2.0 | [facility] | | | bulin Ratio | | | [facility] | | | | | | [facility] | | | | | | CENTER - | | | | | | LABORATORY | | + + + + + + | BUN/Creatin | 7.1 | | [facility] | | | ine [...] + | [facility] | [address] | [place] | [phone] | | [facility] | | [address] | | | - LABORATORY | | | | + + + + + CBC with Differential (08/08/2016 3:03 AM PDT) + + + + + + | Component | Value | Ref Range | Performed | Pathologist | | | | | At | Signature | + + + + + + | WBC | 9.3 | 4.0 - 11.0 K/uL | [facility] | | | | | | [facility] | | | | | [facility] | | | | | | [facility] - | | | | | | LABORATORY | | + + + + + + | RBC | 3.24 (L) | 3.70 - 5.20 | [facility] | | | | | M/uL | [facility] | [facility] | | | [facility] | | | | | | C[facility] - | | | | | | LABORATORY | | + + + + + + | Hemoglobin | 10.4 (L) | 11.5 - 16.0 | [facility] | | | | | g/dL | [facility] | | | | | | [facility] | | | | | | CENTER - | | | | | | LABORATORY | | + + + + + + | Hematocrit | 30.7 (L) | 34.0 - 47.0 % | [facility] | | | | | | [facility] | | | | | | [facility] | | | | | | [facility] - | | | | | | LABORATORY | | + + + + + + | MCV | 94.7 | 83.0 - 101.0 fL | [facility] | | | | | | [facility] | | | | | | [facility] | | | | | | C[facility] - | | | | | | LABORATORY | | + + + + + + | MCH | 32.0 | 28.0 - 35.0 pg | [facility] | | | | | | [facility] | | | | | | [facility] | | | | | | C[facility] - | | | | | | LABORATORY | | + + + + + + | MCHC | 33.8 | 32.0 - 36.0 | [facility] | | | | | g/dL | [facility] | | | | | | [facility] | | | | | | C[facility] - | | | | | | LABORATORY | | + + + + + + | RDW-CV | 12.9 | <15.0 % | [facility] | | | | | | [facility] | | | | | | [facility] | | | | | | CENTER - | | | | | | LABORATORY | | + + + + + + | Platelet | 351 | 140 - 440 K/uL | [facility] | | | Count | | | [facility] | | | [facility] | | [facility] | | | | | | C[facility] - | | | | | | LABORATORY | | + + + + + + | MPV | 7.0 | fL | [facility] | | | | | | [facility] | | | [facility] | | [facility] | | | | | | C[facility] - | | | | | | LABORATORY | | + + + + + + | % | 81.0 | 45.0 - 82.0 % | [facility] | | | Neutrophils | | | [facility] | | | | | | [facility] | | | | | | CENTER - | | | | | | LABORATORY | | + + + + + + | % | 15.2 (L) | 20.0 - 45.0 % | [facility] | | | Lymphocytes | | | [facility] | | | | | | [facility] | | | | | | CENTER - | | | | | | LABORATORY | | + + + + + + | % Monocytes | 3.5 (L) | 4.0 - 12.0 % | [facility] | | | | | | [facility] | | | | | | [facility] | | | | | | CENTER - | | | | | | LABORATORY | | + + + + + + | % | 0.1 | 0.0 - 5.0 % | [facility] | | | Eosinophils | | | [facility] | | | | | | [facility] | | | | | | C[facility] - | | | | | | LABORATORY | | + + + + + + | % Basophils | 0.2 | 0.0 - 1.0 % | [facility] | | | | | | [facility] | | | | | | [facility] | | | | | | C[facility] - | | | | | | LABORATORY | | + + + + + + | Absolute | 7.50 | 1.80 - 8.50 | [facility] | | | Neutrophils | | K/uL | [facility] | | | | | | [facility] | | | | | | C[facility] - | | | | | | LABORATORY | | + + + + + + | Absolute | 1.40 | 0.60 - 3.20 | [facility] | | | Lymphocytes | | K/uL | [facility] | | | | | | [facility] | | | | | | C[facility] - | | | | | | LABORATORY | | + + + + + + | Absolute | 0.30 | 0.00 - 1.00 | [facility] | | | Monocytes | | K/uL | [facility] | | | | | | [facility] | | | | | | CENTER - | | | | | | LABORATORY | | + + + + + + | Absolute | 0.00 | 0.00 - 0.40 | [facility] | [...] ST. | [address] | [place] | [phone] | | [facility] | | [address] | | | - LABORATORY | | | | + + + + + CT Abdomen Pelvis w Contrast (08/08/2016 2:54 AM PDT) + + | Specimen | + + | | + + + + + | Narrative | Performed At | + + + | EXAM: CT ABDOMEN PELVIS W CONTRAST dated 08/08/2016 2:48 AM | [facility] | | HISTORY:abdominal pain, back pain Comparison: May 17, 2016. | | | TECHNIQUE: Imaging is performed from the lung bases through the | | | pubic symphysis following the uneventful intravenous administration | | | of 85 milliliters Omnipaque 350. Automated exposure control, | | | Adjustment of mA and/or kV according to patient size, and use of | | | iterative reconstruction technique are applied to this exam. | | | DOSE: DLP 197.39 mGy-cm FINDINGS: LUNG BASES: The lung | | | bases are clear. There is no visible pleural effusion or | | | pneumothorax. There is no significant pericardial thickening. | | | LIVER: The liver is unremarkable in attenuation and enhancement. | | | Stable hypodensity in the right lobe. GALLBLADDER: The | | | gallbladder is not distended. There are no calcified | | | cholelithiasis. No visible biliary ductal dilatation. SPLEEN: | | | The spleen is unremarkable. There is no splenomegaly. There is a | | | small splenule. PANCREAS: The pancreas is unremarkable. The | | | pancreatic duct is not dilated. ADRENALS: No adrenal enlargement. | | | No adrenal masses. KIDNEYS: The kidneys are symmetrically | | | enhancing. There are no focal renal lesions. There is no | | | nephrolithiasis. There is no obstructive uropathy. BOWEL: The | | | gastrointestinal tract is unremarkable. There is no evidence for | | | gastrointestinal tract obstruction. The patient is status post | | | appendectomy. There is no significant diverticular disease. | | | VASCULATURE AND LYMPH NODES: There is no aneurysmal dilatation of | | | the abdominal aorta. The major venous structures are patent and | | | unremarkable. There is no pelvic or abdominal lymphadenopathy. | | | BLADDER: The bladder is decompressed and not well evaluated. | | | UTERUS AND ADNEXA:The uterus is unremarkable. There is a 3.2 cm | | | hypoattenuating structure in the left ovary. BONES: There are no | | | acute osseous abnormalities. There are no lytic or blastic bone | | | lesions. Curvature could be positional or scoliosis. Lumbosacral | | | transitional anatomy. Right lumbosacral pseudoarthrosis. OTHER: | | | There is a small amount of free fluid. There is no free air. | | | IMPRESSION - No definite CT evidence for an acute abdominal or | | | pelvic process. In the absence of specific symptoms to the left | | | pelvis the 3.2 cm hypoattenuating structure likely represents a | | | functional ovarian cyst. If there is concern for pelvic pathology | | | consider a pelvic ultrasound. The preliminary report is provided | | | by Dr. Brown on August 08, 2016 at 3:17 AM. Dictated and Signed | | | by: Nikko Nickerson MD Electronically signed: 08/08/2016 2:12 PM | | + + + + + | Procedure Note | + + | Honorio, Rad Results In - 08/08/2016 2:15 PM PDT EXAM: CT ABDOMEN PELVIS W CONTRAST | | dated 08/08/2016 2:48 AMHISTORY:abdominal pain, back painComparison: May 17, | | 2015.TECHNIQUE: Imaging is performed from the lung bases through the pubic | | symphysisfollowing the uneventful intravenous administration of 85 milliliters | | [id number]. Automated exposure control, Adjustment of mA and/or kV according | | topatient size, and use of iterative reconstruction technique are applied to | | thisexam.DOSE: DLP 197.39 mGy-cmFINDINGS: LUNG BASES: The lung bases are clear. There | | is no visible pleural effusion orpneumothorax. There is no significant pericardial | | thickening.LIVER: The liver is unremarkable in attenuation and enhancement. | | Stablehypodensity in the right lobe.GALLBLADDER: The gallbladder is not distended. | | There are no calcifiedcholelithiasis. No visible biliary ductal dilatation.SPLEEN: The | | spleen is unremarkable. There is no splenomegaly. There is a smallsplenule.PANCREAS: | | The pancreas is unremarkable. The pancreatic duct is not dilated.ADRENALS: No adrenal | | enlargement. No adrenal masses.KIDNEYS: The kidneys are symmetrically enhancing. There | | are no focal renallesions. There is no nephrolithiasis. There is no obstructive | | uropathy.BOWEL: The gastrointestinal tract is unremarkable. There is no evidence | | forgastrointestinal tract obstruction. The patient is status post appendectomy. There | | is no significant diverticular disease.VASCULATURE AND LYMPH NODES: There is no | | aneurysmal dilatation of the abdominalaorta. The major venous structures are patent and | | unremarkable. There is nopelvic or abdominal lymphadenopathy.BLADDER: The bladder is | | decompressed and not well evaluated.UTERUS AND ADNEXA:The uterus is unremarkable. There | | is a 3.2 cm hypoattenuatingstructure in the left ovary.BONES: There are no acute | | osseous abnormalities. There are no lytic or blasticbone lesions. Curvature could be | | positional or scoliosis. Lumbosacraltransitional anatomy. Right lumbosacral | | pseudoarthrosis.OTHER: There is a small amount of free fluid. There is no free | | air.IMPRESSION - No definite CT evidence for an acute abdominal or pelvic process.In the | | absence of specific symptoms to the left pelvis the 3.2 cmhypoattenuating structure | | likely represents a functional ovarian cyst. If thereis concern for pelvic pathology | | consider a pelvic ultrasound.The preliminary report is provided by Dr. Brown on July | | 2016 at 3:17 AM.Dictated and Signed by: Nikko Nickerson MD Electronically signed: | | 08/08/2016 2:12 PM | | | |KIDNEYS: The kidneys are symmetrically enhancing. There are no focal renal | |lesions. There is no nephrolithiasis. There is no obstructive uropathy. | | | |BOWEL: The gastrointestinal tract is unremarkable. There is no evidence for | |gastrointestinal tract obstruction. The patient is status post appendectomy. | |There is no significant diverticular disease. | | | |VASCULATURE AND LYMPH NODES: There is no aneurysmal dilatation of the abdominal | |aorta. The major venous structures are patent and unremarkable. There is no | |pelvic or abdominal lymphadenopathy. | | | |BLADDER: The bladder is decompressed and not well evaluated. | | | |UTERUS AND ADNEXA:The uterus is unremarkable. There is a 3.2 cm hypoattenuating | |structure in the left ovary. | | | |BONES: There are no acute osseous abnormalities. There are no lytic or blastic | |bone lesions. Curvature could be positional or scoliosis. Lumbosacral | |transitional anatomy. Right lumbosacral pseudoarthrosis. | | | |OTHER: There is a small amount of free fluid. There is no free air. | | | |IMPRESSION - | | | |No definite CT evidence for an acute abdominal or pelvic process. | | | |In the absence of specific symptoms to the left pelvis the 3.2 cm | |hypoattenuating structure likely represents a functional ovarian cyst. If there | |is concern for pelvic pathology consider a pelvic ultrasound. | | | |The preliminary report is provided by Dr. Brown on August 08, 2016 at 3:17 AM. | | | | | |Dictated and Signed by: Nikko Nickerson MD | | Electronically signed: 08/08/2016 2:12 PM | + + + +---------+ + + | Performing | Address | City/State/Zipcode | Phone Number | | Organization | | | | + +---------+ + + | [facility] | | | | + +---------+ + + Urinalysis with Microscopic with Culture if Indicated (08/08/2016 2:52 AM PDT) + + + + + + [...] + + + + | Clarity | Clear | Clear | [facility] | | | | | [facility] | | | [facility] | [facility] | | [facility] - | | | | | | LABORATORY | | + + + + + + | pH, Urine | 7.0 | 5.0 - 8.0 | [facility] | | | | | | [facility] | | | | | | [facility] | | | | | | [facility] - | | | | | | LABORATORY | | + + + + + + | Specific | 1.009 | 1.001 - 1.030 | [facility] | | | [place], | | | [facility] | | [...] + + | Urobilinoge | Negative | 0.2 mg/dL, 1.0 | [facility] | | | n, Urine | | mg/dL, Negative | [facility] | | | | [...] + + + + | Squamous | 2-5 (A) | 0 - 2 /LPF | [facility] | | | Epithelial | | | [facility] | | | Cells, | | | MEDICAL | | | Urine | | | CENTER - | | | | | | LABORATORY | | + + + + + + | Bacteria, | Negative | Negative /HPF | [facility] | | [...] Urine - Urine | | specimen obtained | | via indwelling | | urinary catheter | | (specimen) | + + + + + + + | Performing | Address | City/State/Zipcode | Phone Number | | Organization | | | | + + + + + | [facility] | [address] | [place] | [phone] | | [facility] | | [address] | | | - LABORATORY | | | | + + + + + MRI Lumbar Spine wo Contrast (08/08/2016 12:35 AM PDT) + + | Specimen | + + | | + + + + + | Narrative | Performed At | + + + | EXAM: MRI LUMBAR CERVICAL, THORACIC, AND SPINE WO CONTRAST dated | [facility] | | 08/07/2016 12:00 AM HISTORY:BACK PAIN COMPARISON: Lumbar | | | spine MRI dated August 05, 2016. Lumbar spine radiograph November 12, | | | 2015. TECHNIQUE: Multiplanar multisequence MR imaging of the | | | cervical, thoracic lumbar spine without contrast. This is performed | | | on a 3Tesla MRI scanner. FINDINGS: CERVICAL: There is no | | | scoliosis. There is no significant spondylolisthesis. Mild disc | | | desiccation and narrowing at C5-C6. Mild disc desiccation at C2-C3, | | | C3-C4, C4-C5, and C6-C7. No endplate degenerative changes. The | | | cord has normal size, signal, contour throughout its visible course. | | | Limited evaluation of the posterior fossa contents is unremarkable. | | | No precervical soft tissue thickening. The following levels | | | are evaluated in the axial plane: C2-C3: No significant spinal | | | canal stenosis or neural foraminal narrowing. C3-C4: No | | | significant spinal canal stenosis or neural foraminal narrowing. | | | C4-C5: No significant spinal canal stenosis or neural foraminal | | | narrowing. C5-C6: Small central disc protrusion and annular tear. | | | No significant narrowing of the central spinal canal or neural | | | foramen. C6-C7: Small central disc protrusion. Mild narrowing of | | | the central spinal canal. The neural foramen are patent. | | | C7-T1: No significant spinal canal stenosis or neural foraminal | | | narrowing. The visible paracervical soft tissues are | | | unremarkable. THORACIC: No scoliosis. No | | | spondylolisthesis. No significant endplate degenerative changes. | | | No compression deformities. No significant disc narrowing or | | | desiccation. The cord has normal size, signal, and contour | | | throughout its visible course. The central spinal canal and neural | | | foramen are patent at all levels. The surrounding soft tissues are | | | unremarkable. LUMBAR: There is lumbosacral changes anatomy. | | | There is a right-sided lumbosacral pseudoarthrosis. No | | | significant scoliosis. There is no spondylolisthesis. There is | | | mild disc desiccation and disc narrowing at L5-S1. No compression | | | deformities. No endplate degenerative changes. The conus | | | terminates at the L1 level. The visible distal cord is unremarkable. | | | T12-L1 through L2-L3 are unremarkable as seen on the sagittal | | | sequence. The following levels are evaluated in the axial plane: | | | L3-4: No significant central stenosis or neural foraminal | | | narrowing. L4-5: No significant central stenosis or neural | | | foraminal narrowing. Mild facet arthrosis bilaterally. L5-S1: | | | Central disc protrusion. High signal suggesting an annular tear. | | | Mild narrowing of the central spinal canal. Mild facet arthrosis | | | bilaterally. The neural foramen are patent. The visible | | | paravertebral soft tissues are significant for a urine distended | | | bladder. 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 IMPRESSION - Mild | | | cervical spondylosis with small central disc protrusions at C5-C6 and | | | C6-C7. Small annular tear at C5-C6. Unremarkable thoracic spine | | | MRI. Stable disc protrusion at L5-S1 with mild there of the | | | central spinal canal. No significant interval change. Urine | | | distended bladder. The preliminary report*provided by Dr. Cuevas on | | | August 08, 2016 at 1:15 AM and 08/08/2016 5:08:00 AM. Dictated and | | | Signed by: Nikko Nickerson MD Electronically signed: 08/08/2016 | | | 2:28 PM | | + + + + + | Procedure Note | + + | Honorio, Rad Results In - 08/08/2016 2:31 PM PDT EXAM: MRI LUMBAR CERVICAL, THORACIC, | | AND SPINE WO CONTRAST dated 08/07/2016 12:00AMHISTORY:BACK PAINCOMPARISON: Lumbar spine | | MRI dated August 05, 2016. Lumbar spine radiographJune 2015.TECHNIQUE: Multiplanar | | multisequence MR imaging of the cervical, thoracic lumbarspine without contrast. This | | is performed on a 3Tesla MRI scanner. FINDINGS:CERVICAL: There is no scoliosis. There | | is no significant spondylolisthesis. Mild disc desiccation and narrowing at C5-C6. Mild | | disc desiccation at C2-C3,C3-C4, C4-C5, and C6-C7. No endplate degenerative changes. | | The cord has normalsize, signal, contour throughout its visible course. Limited | | evaluation of theposterior fossa contents is unremarkable. No precervical soft | | tissuethickening.The following levels are evaluated in the axial plane:C2-C3: No | | significant spinal canal stenosis or neural foraminal narrowing. C3-C4: No significant | | spinal canal stenosis or neural foraminal narrowing. C4-C5: No significant spinal canal | | stenosis or neural foraminal narrowing. C5-C6: Small central disc protrusion and annular | | tear. No significant narrowingof the central spinal canal or neural foramen.C6-C7: | | Small central disc protrusion. Mild narrowing of the central spinalcanal. The neural | | foramen are patent.C7-T1: No significant spinal canal stenosis or neural foraminal | | narrowing. The visible paracervical soft tissues are unremarkable.THORACIC:No scoliosis. | | No spondylolisthesis. No significant endplate degenerativechanges. No compression | | deformities. No significant disc narrowing ordesiccation. The cord has normal size, | | signal, and contour throughout itsvisible course. The central spinal canal and neural | | foramen are patent at alllevels. The surrounding soft tissues are unremarkable.LUMBAR: | | There is lumbosacral changes anatomy. There is a right-sidedlumbosacral | | pseudoarthrosis. No significant scoliosis. There is nospondylolisthesis. There is | | mild disc desiccation and disc narrowing at L5-S1. No compression deformities. No | | endplate degenerative changes. The conusterminates at the L1 level. The visible distal | | cord is unremarkable. V90-V4glbmpul L2-L3 are unremarkable as seen on the sagittal | | sequence.The following levels are evaluated in the axial plane:L3-4: No significant | | central stenosis or neural foraminal narrowing. L4-5: No significant central stenosis or | | neural foraminal narrowing. Mild facetarthrosis bilaterally.L5-S1: Central disc | | protrusion. High signal suggesting an annular tear. Mildnarrowing of the central | | spinal canal. Mild facet arthrosis bilaterally. Theneural foramen are patent. The | | visible paravertebral soft tissues are significant for a urine distendedbladder. Tarlov | | cyst at S2 level.IMPRESSION - Mild cervical spondylosis with small central disc | | protrusions at C5-C6 andC6-C7. Small annular tear at C5-C6.Unremarkable thoracic spine | | MRI.Stable disc protrusion at L5-S1 with mild there of the central spinal canal. | | Nosignificant interval change.Urine distended bladder.The preliminary report*provided by | | Dr. Cuevas on August 08, 2016 at 1:15 AM and08/08/2016 5:08:00 AM.Dictated and Signed by: | | Nikko Nickerson MD Electronically signed: 08/08/2016 2:28 PM | | | |THORACIC: | | | |No scoliosis. No spondylolisthesis. No significant endplate degenerative | |changes. No compression deformities. No significant disc narrowing or | |desiccation. The cord has normal size, signal, and contour throughout its | |visible course. The central spinal canal and neural foramen are patent at all | |levels. The surrounding soft tissues are unremarkable. | | | | | |LUMBAR: There is lumbosacral changes anatomy. There is a right-sided | |lumbosacral pseudoarthrosis. No significant scoliosis. There is no | |spondylolisthesis. There is mild disc desiccation and disc narrowing at L5-S1. | |No compression deformities. No endplate degenerative changes. The conus | |terminates at the L1 level. The visible distal cord is unremarkable. T12-L1 | |through L2-L3 are unremarkable as seen on the sagittal sequence. | | | |The following levels are evaluated in the axial plane: | | | |L3-4: No significant central stenosis or neural foraminal narrowing. | | | |L4-5: No significant central stenosis or neural foraminal narrowing. Mild facet | |arthrosis bilaterally. | | | |L5-S1: Central disc protrusion. High signal suggesting an annular tear. Mild | |narrowing of the central spinal canal. Mild facet arthrosis bilaterally. The | |neural foramen are patent. | | | |The visible paravertebral soft tissues are significant for a urine distended | |bladder. 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 | | | | | |IMPRESSION - | | | |Mild cervical spondylosis with small central disc protrusions at C5-C6 and | |C6-C7. Small annular tear at C5-C6. | | | |Unremarkable thoracic spine MRI. | | | |Stable disc protrusion at L5-S1 with mild there of the central spinal canal. No | |significant interval change. | | | |Urine distended bladder. | | | |The preliminary report*provided by Dr. Cuevas on August 08, 2016 at 1:15 AM and | |08/08/2016 5:08:00 AM. | | | |Dictated and Signed by: Nikko Nickerson MD | | Electronically signed: 08/08/2016 2:28 PM | + + + +---------+ + + | Performing | Address | City/State/Zipcode | Phone Number | | Organization | | | | + +---------+ + + | [facility] | | | | + +---------+ + + documented in this encounter Visit Diagnoses + + | Diagnosis | + + | Back pain, unspecified back location, unspecified back pain laterality, unspecified | | chronicity - Primary | + + documented in this encounter Administered Medications + +--------+ + +------+------+ | Medication Order | MAR | Action | Dose | Rate | Site | | | Action | Date | | | | + +--------+ + +------+------+ | HYDROcodone-acetaminophen | Given | 08/09/19 | 1 tablet | | | | (NORCO) 5-325 mg per tablet 1 | | 17 1:56 | | | | | tablet 1 tablet, Oral, ONCE, Sun | | AM PDT | | | | | 08/08/16 at 0150, For 1 dose | | | | | | + +--------+ + +------+------+ +---+---+ | | | +---+---+ + +-------+ +--------+---+---+ | iohexol (OMNIPAQUE 350) 350 | Given | 08/09/19 | 85 mLs | | | | mg/mL injection 85 mL 85 mL, | | 17 2:55 | | | | | Intravenous, ONCE PRN, Other, | | AM PDT | | | | | Starting 08/08/16 at 0255, For | | | | | | | 1 dose, Cat Scanner | | | | | | + +-------+ +--------+---+---+ +---+---+ | | | +---+---+ + +-------+ +------+---+---+ | LORazepam (ATIVAN) injection 1 | Given | 08/08/19 | 1 mg | | | | mg 1 mg, Intravenous, ONCE, Sat | | 17 11:47 | | | | | 08/07/16 at 2310, For 1 dose | | PM PDT | | | | + +-------+ +------+---+---+ +---+---+ | | | +---+---+ + +-------+ +------+---+---+ | LORazepam (ATIVAN) injection 1 | Given | 08/09/19 | 1 mg | | | | mg 1 mg, Intravenous, ONCE, Sun | | 17 12:19 | | | | | 08/08/16 at 0010, For 1 dose | | AM PDT | | | | + +-------+ +------+---+---+ +---+---+ | | | +---+---+ + +-------+ +------+---+---+ | LORazepam (ATIVAN) injection 1 | Given | 08/09/19 | 1 mg | | | | mg 1 mg, Intravenous, ONCE, Sun | | 17 3:30 | | | | | 08/08/16 at 0315, For 1 dose | | AM PDT | | | | + +-------+ +------+---+---+ +---+---+ | | | +---+---+ + +-------+ +------+---+---+ | ondansetron (ZOFRAN ODT) | Given | 08/09/19 | 4 mg | | | | disintegrating tablet 4 mg 4 mg, | | 17 1:55 | | | | | Oral, ONCE, 08/08/16 at 0150, | | AM PDT | | | | | For 1 dose | | | | | | + +-------+ +------+---+---+ +---+---+ | | | +---+---+ documented in this encounter
--- OUTSIDE RECORDS SUMMARY | ~2019-10-30 | XMS | Encounter Summary ---
Demographics + + + | Address | [address] | | | [place] [address] | + + + | Home Phone | | + + + | Preferred Language | Unknown | + + + | Marital Status | Single | + + + | Rastafari Affiliation | 1013 | + + + | Race | Unknown | + + + | Ethnic Group | Unknown | + + + Author + + + | Author | [facility] | | | and [place]ana | + + + | Organization | [facility] | | | [...] | | | | | [place] [address] | | + + + + + | Ab Romykia | ECON | Unknown | | + + + + + Care Team Providers + +------+ + | Care Lock Fitter Name | Role | Phone | + +------+ + | Pj Abdi MD | PCP | | + +------+ + Reason for Visit +---------+ + | Reason | Comments | +---------+ + | ED | | +---------+ + | No Show | | +---------+ + Encounter Details +--------+ + + + + | Date | Type | Department | Care Team | Description | +--------+ + + + + | 07/25/ | Telephone | [facility] | Pj Abdi, | ED; No Show | | 2018 | | MEDICINE [place] | [address] | | | | | [address] | [place] | | | | | [place] | [address] | | | | | [address] | | | | | | [phone] | | | +--------+ + + + [...]
--- OUTSIDE RECORDS SUMMARY | ~2019-10-30 | XMS | Encounter Summary ---
Demographics + + + | Address | [address] | | | [place] [address] | + + + | Home Phone | | + + + | Preferred Language | Unknown | + + + | Marital Status | Single | + + + | Baptism Affiliation | 1013 | + + + | Race | Unknown | + + + | Ethnic Group | Unknown | + + + Author + + + | Author | [facility] | | | and [place] | + + + | Organization | [facility] | | | [...] | | | | | [place] [address] | | + + + + + | Ab Romykia | ECON | Unknown | | + + + + + Care Team Providers + +------+ + | Care Side Stitching Machine Operator Name | Role | Phone | + +------+ + | No Physician | PCP | Unavailable | + +------+ + Reason for Visit + + + | Reason | Comments | + + + | Follow-up | [facility] Visit | + + + Encounter Details +--------+ + + + + | Date | Type | Department | Care Team | Description | +--------+ + + + + | 01/28/ | Telephone | [facility] | Allyn Spears RN | Follow-up ([facility] Urgent | | 2015 | | CARE [address] | | Care Visit ) | | | | [place] | | | | | | [address] | | | | | | [phone] | | | +--------+ + + + [...]
--- OUTSIDE RECORDS SUMMARY | ~2019-10-30 | XMS | Encounter Summary ---
Demographics + + + | Address | [address] | | | [place] [address] | + + + | Home Phone | | + + + | Preferred Language | Unknown | + + + | Marital Status | Single | + + + | Quaker Affiliation | 1013 | + + + | Race | Unknown | + + + | Ethnic Group | Unknown | + + + Author + + + | Author | [facility] | | | and [place] | + + + | Organization | [facility] | | | [...] | | | | | [place] [address] | | + + + + + | Ab Romykia | ECON | Unknown | | + + + + + Care Team Providers + +------+ + | Care Computer Education Teacher Name | Role | Phone | + +------+ + | Charles Allen MD | PCP | | + +------+ + Reason for Visit + + + | Reason | Comments | + + + | Medication Refill | | + + + Encounter Details +--------+--------+ + + + | Date | Type | Department | Care Team | Description | +--------+--------+ + + + | 02/14/ | Refill | [facility] | Pj Abdi, | Medication Refill | | 2018 | | MEDICINE [address] [place] [address] | MD Jones S [facility] | | | | | Refugio Limon | [place] | | | | | [place] [id number] | [id number] | | | | | [phone] | | | +--------+--------+ + + + [...]
--- OUTSIDE RECORDS SUMMARY | ~2019-10-30 | XMS | Encounter Summary ---
Demographics + + + | Address | [address] | | | [place] [address] | + + + | Home Phone | | + + + | Preferred Language | Unknown | + + + | Marital Status | Single | + + + | Orthodox Affiliation | 1013 | + + + | Race | Unknown | + + + | Ethnic Group | Unknown | + + + Author + + + | Author | [facility] | | | and [place] | + + + | Organization | [facility] | | | [...] | | | | | [place] [address] | | + + + + + | Ab Romykia | ECON | Unknown | | + + + + + Care Team Providers + +------+ + | Care Roof Truss Detailer Name | Role | Phone | + [...] Description | +--------+--------+ + + + | 05/03/ | Refill | [facility] | Pj Abdi, | Medication Refill | | 2016 | | MEDICINE [place] | [address] | | | | | [address] | [place] | | | | | [place] | [address] | | | | | [address] | | | | | | [phone] | | | +--------+--------+ + + + [...] filedocumented as of this encounter Visit Diagnoses + + | Diagnosis | + + | Chronic pain syndrome | + + documented in this encounter"
--- OUTSIDE RECORDS SUMMARY | ~2019-10-30 | XMS | Encounter Summary ---
Demographics + + + | Address | [address] | | | [place] [address] | + + + | Home Phone | | + + + | Preferred Language | Unknown | + + + | Marital Status | Single | + + + | Jehovah'S Witness Affiliation | 1013 | + + + | Race | Unknown | + + + | Ethnic Group | Unknown | + + + Author + + + | Author | [facility] | | | and [place] | + + + | Organization | [facility] | | | [...] | | | | | [place] [address] | | + + + + + | Ab Julio C | ECON | Unknown | | + + + + + Care Team Providers + +------+ + | Care Production Or Plant Engineer Name | Role | Phone | + +------+ + | Pj Abdi MD | PCP | | + +------+ + Reason for Visit + + + | Reason | Comments | + + + | ER Follow-up | pelvic pain | + + + Encounter Details +--------+---------+ + + + | Date | Type | Department | Care Team | Description | +--------+---------+ + + + | 01/17/ | Office | [facility] | Pj Abdi, | Pelvic pain in | | 2017 | Visit | MEDICINE [place] | [address] | female (Primary Dx); | | | | [address] | [place], [place] | Left ovarian cyst | | | | [place], [place] | [address] | | | | | [address] | | | | | | [phone] | | | +--------+---------+ + + + [...] + + + | Blood Pressure | 120/70 | 01/17/2018 9:59 AM | | | | | PDT | | + + + + + | Pulse | 86 | 01/17/2018 9:59 AM | | | | | PDT | | + + + + + | Temperature | 36.6 C (97.9 F) | 01/17/2018 9:59 AM | | | | | PDT | | + + + + + | Respiratory Rate | 16 | 01/17/2018 9:59 AM | | | | | PDT | | + + + + + | Oxygen Saturation | 98% | 01/17/2018 9:59 AM | | | | | PDT | | + + + + + | Inhaled Oxygen | - | - | | | Concentration | | | | + + + + + | Weight | 55.3 kg (121 lb 14.6 | 01/17/2018 9:59 AM | | | | oz) | PDT | | + + + + + | Height | - | - | | + + + + + | Body Mass Index | 20.93 | 01/12/2018 6:33 PM | | | | | PDT | | + + + + + documented in this encounter Progress Notes Pj Abdi MD - 01/17/2018 9:30 AM PDTFormatting of this note might be different fro m the original. Donna Camarena is a 22 y.o. female Chief Complaint: ER Follow-up (pelvic pain) HPI 12/11/17 ER pelvic pain 12/13/17 ER pelvic pain 12/28/17 ER pelvic pain 01/10/18 ER pelvic pain 12/2317 ER pelvic pain From ED visit: 22 y.o. female who presented with ongoing pelvic pain. She's been seen 3 times in the last 2 weeks here in the emergency room. Was scheduled with primary care physician for ongoing pelvic pain but cancelled or no showed appts. She did have an ultrasound in the emergency room which showed a very small cyst on her left ovary. Her right ovary has been removed se condary to previous cysts. Patient with ongoing pelvic pain and cramping. She was seen initially by ObGyn clinic and treated for PID. This was at [facility] with Dr Sánchez was treated with Doxycycline. Patient states she never felt like sh e improved. CT study which does not show any acute pathology within the last month. US results: 01/10/18IMPRESSION - 3 cm cyst in the left ovary. No sonographic evidence for ovarian torsion. CT results 12/28/2017 : IMPRESSION - No CT evidence for an acute abdominal or pelvic process. No nephrolithiasis or evidence of an obstructive uropathy. Transitional lumbosacral anatomy with a left-sided lumbosacral pseudoarthrosis PREVENTIVE CARE/PRIOR VISITS - Any recommendations from Health Maintenance: There are no preventive care reminders to di splay for this patient. Preventative Services TOPIC LAST DONE NEXT DUE Vaccine: Influenza 01/21/2018 Cervical Cancer Screening (Pap) 05/31/2016 05/31/2019 Vaccine: Dtap/Tdap/Td 08/23/2013 08/24/2023 Vaccine: Hpv 11/30/2016 Vaccine: Pneumococcal 19-64 (Ppsv23 Only) Medium Risk 11/02/2016 Allergies Allergen Reactions Dimetapp Cold-Allergy Hives and Rash Meloxicam Hives, Anxiety and Rash Nortriptyline Other (See Comments) INEFFECTIVE Medications: Patient Reported Taking Dosage ferrous sulfate 325 mg tablet (Taking) Take 325 mg by mouth daily (with breakfast). gabapentin (NEURONTIN) 300 mg capsule (Taking) Take 2 capsules by mouth 3 times daily. Number of times this order has been changed since signin [facility] [place] gabapentin (NEURONTIN) 300 mg capsule (Taking/Discontinued) Take 300 mg by mouth 3 times daily. hydrOXYzine hydrochloride (ATARAX) 25 mg tablet (Taking) Take 50 mg by mouth Twice daily as needed for Anxiety. Number of times this order has been changed since signin [facility] [place] Multiple Vitamins-Minerals (MULTIVITAL PO) (Taking) Take 1 tablet by mouth Daily. naproxen (NAPROSYN) 500 mg tablet (Taking) TAKE ONE TABLET TWICE DAILY WITH BREAKFAST AND DINNER Number of times this order has been changed since signin [facility] [place] ondansetron (ZOFRAN ODT) 4 mg disintegrating tablet (Taking) Take 1 tablet by mouth every 6 hours as needed. Number of times this order has been changed since signin [facility] [place] oxybutynin (DITROPAN) 5 mg tablet (Taking) oxyCODONE-acetaminophen (PERCOCET) 5-325 mg per tablet (Taking) Take 1 tablet by mouth ev donna 6 hours as needed for Pain. Number of times this order has been changed since signin [facility] [place] oxyCODONE-acetaminophen (PERCOCET) 5-325 mg per tablet (Taking/Discontinued) Take 1 table t by mouth every 6 hours as needed for Pain. Number of times this order has been changed since signin [facility] [place] traZODone (DESYREL) 100 mg tablet (Taking) Take 100 mg by mouth nightly as needed. Number of times this order has been changed since signin [facility] [place] Past Medical History She has a past medical history of Anxiety; Chronic low back pain (09/21/2016); DDD (degenerat aleisha disc disease), lumbar (09/21/2016); Depression; Environmental allergies; Facet arthritis o f lumbar region (HCC) (09/21/2016); PONV (postoperative nausea and vomiting); Scoliosis; and W ears dentures. Past Surgical History She has a past surgical history that includes Appendectomy (2011); ovarian cyst removal (11 05); laparoscopy (N/A, 06/16/2015); Salpingo-oophorectomy (Right, 03/11/2016); ovarian cyst r emoval (2013); and mina and bso (Right, 02/2016). Family History: Her family history includes Alcohol abuse in her mother; Cervical cancer in her mother; Men rachael illness in her mother; No Known Problems in her child, child, father, maternal grandfath er, maternal grandmother, paternal grandfather, and paternal grandmother. Social History: Social History Social History Marital status: Single Spouse name: [employer] CARD Number of children: 2 Years of education: [employer] Occupational History [employer] UNEMPLOYED Social History Main Topics Smoking status: Current Every Day Smoker Packs/day: 1.00 Years: 14.00 Types: Cigarettes Start date: 09/17/2009 Smokeless tobacco: Never Used Alcohol use 0.0 oz/week Comment: rarely Drug use: No Sexual activity: Yes Partners: Male control/ protection: Yes Comment: Norplant Other Topics Concern None Social History Narrative None Review of Systems Respiratory: Negative for chest tightness and shortness of breath. Cardiovascular: Negative for chest pain, palpitations and leg swelling. Gastrointestinal: Positive for nausea. Negative for constipation and vomiting. Genitourinary: Positive for pelvic pain. Negative for dysuria, frequency and urgency. Musculoskeletal: Positive for back pain. Negative for neck pain. Neurological: Negative for dizziness, syncope and light-headedness. Objective: Vitals: 01/17/18 0959 BP: 120/70 Pulse: 86 Resp: 16 Temp: 36.6 C (97.9 F) TempSrc: Tympanic SpO2: 98% Weight: 55.3 kg (121 lb 14.6 oz) Body mass index is 20.93 kg/m. Physical Exam Constitutional: She is oriented to person, place, and time. She appears well-developed and well-nourished. No distress. Appropriately dressed and groomed HENT: Head: Normocephalic and atraumatic. Eyes: Conjunctivae are normal. Genitourinary: There is tenderness on the right labia. There is no rash on the right labia. There is no rash or tenderness on the left labia. Cervix exhibits motion tenderness. Right adnexum displays no tenderness. Left adnexum displays tenderness and fullness. No tenderness in the vagina. No vaginal discharge found. Musculoskeletal: She exhibits no edema. Neurological: She is alert and oriented to person, place, and time. Skin: Skin is warm and dry. Psychiatric: She has a normal mood and affect. Her behavior is normal. Nursing note and vitals reviewed. Ortho Exam Results for orders placed or performed in visit on 01/17/18 POCT Urinalysis Dipstick Automated Result Value Ref Range Color, UA, POC Yellow Yellow, Light Yellow Clarity, UA, POC Clear Glucose, UA, POC Negative Negative Bilirubin, UA, POC Negative Negative Ketones, UA, POC Negative Negative, 100 mg/dL Specific [place], UA, POC 1.015 1.001 - 1.030 Blood, UA, POC Moderate (A) Negative pH, UA, POC 5.5 5.0, 6.0, 7.0, 8.0, 5.5, 6.5, 7.5 Protein, UA, POC Negative Negative Urobilinogen, UA, POC Negative 0.2, Negative, Normal, < 0.2 mg/dL, 1 mg/dL, < 0.2 E.U./dl, 1.0 E.U./dL, 0.2 mg/dL Nitrite, UA, POC Negative Negative Leukocyte Esterase, UA, POC Negative Negative RED SUB UA ICTOTEST Negative REMARK Assessment: 1. Pelvic pain in female oxyCODONE-acetaminophen (PERCOCET) 5-325 mg per tablet POCT Urinalysis Dipstick Automated 2. Left ovarian cyst oxyCODONE-acetaminophen (PERCOCET) 5-325 mg per tablet POCT Urinalysis Dipstick Automated Plans: 1. Pelvic pain in female 2. Left ovarian cyst Patient has an acute issue. She has a history of right ovary and tubal removal due to ovari an cyst. No previous notation of endometriosis. Could however be present or significant scar tissue. Reviewed with patient that she is high risk for addiction due to her previous behav iors. Reviewed restrictions on coverage of medications. Reviewed that I will not prescribe c hronic opioids for her. I am willing to prescribe oxycodone for a short period of time. [facility] appointment to follow up on cyst. Will pull PDMP. - oxyCODONE-acetaminophen (PERCOCET) 5-325 mg per tablet; Take 1 tablet by mouth every 6 ho urs as needed for Pain. Dispense: 30 tablet; Refill: 0 - POCT Urinalysis Dipstick Automated I, Luis Carlos August MA, am acting as a scribe on behalf of, and in the presence of MD Meme Chanel Cert MA 01/17/2018 I, Dr. Pj Abdi, personally performed the services described in this documentation, as scribed in my presence and it is both accurate and complete. Pj Abdi MD 01/18/18 documented in this e ncounter Plan of Treatment Not on filedocumented as of this encounter Procedures + +--------+ + + + | Procedure Name | Priori | Date/Time | Associated Diagnosis | Comments | | | ty | | | | + +--------+ + + + | POCT URINALYSIS, | Routin | 01/17/2018 | Pelvic pain in | Results for this | | AUTO WITH CONF | e | 1:52 PM | female Left ovarian | procedure are in the | | | | PDT | cyst | results section. | + +--------+ + + + documented in this encounter Results POCT Urinalysis Dipstick Automated (01/17/2018 1:52 PM PDT) + + + + + [...] + + + + | Specific | 1.015 | 1.001 - 1.030 | | | | [place], | | | | | | UA, POC | | | | | + + + + + + | Blood, UA, | Moderate (A) | Negative | | | | POC [...] + + | Urobilinoge | Negative | 0.2, Negative, | | | | [...] cyst | + + documented in this encounter"
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
--- OUTSIDE RECORDS SUMMARY | ~2019-10-30 | XMS | Encounter Summary ---
Demographics + + + | Address | [address] | | | [place] [address] | + + + | Home Phone | | + + + | Preferred Language | Unknown | + + + | Marital Status | Single | + + + | Advent Affiliation | 1013 | + + + | Race | Unknown | + + + | Ethnic Group | Unknown | + + + Author + + + | Author | [facility] | | | and Johnana | + + + | Organization | [facility] | | [...] | | | | | [place] [address] | | + + + + + | Ab Bunch | ECON | Unknown | | + + + + + Care Team Providers + +------+ + | Care Weed Sprayer Name | Role | Phone | + +------+ + | John Rhodes | PCP | | + +------+ + Reason for Visit Auth/Cert +--------+--------+ + + + + | Status | Reason | Specialty | Diagnoses / | Referred By | Referred To | | | | | Procedures | Contact | Contact | +--------+--------+ + + + + | | | | Diagnoses | | | | | | | Cyst of | | | | | | | right ovary | | | | | | | RLQ | | | | | | | abdominal | | | | | | | pain Cyst | | | | | | | of right | | | | | | | ovary | | | | | | | [N83.201], | | | | | | | RLQ | | | | | | | abdominal | | | | | | | pain | | | | | | | [R10.31] | | | | | | | Procedures | | | | | | | LAPAROSCOPIC | | | | | | | | | | | | | | SALPINGO-OOP | | | | | | | HORECTOMY | | | +--------+--------+ + + + + Encounter Details +--------+---------+ + + + | Date | Type | Department | Care Team | Description | +--------+---------+ + + + | 03/11/ | Surgery | [facility] | [facility] | Laparoscopic [facility] | | 2016 | | [facility] | DO Fernando [address] | | | | [address] | [address] [place] | | | | | [place], [place] | [place] [address] | | | | | [address] | [phone] | | | | | [phone] | | | +--------+---------+ + + + [...] + + + | Blood Pressure | 120/71 | 03/11/2016 2:45 PM | | | | | PDT | | + + + + + | Pulse | 100 | 03/11/2016 2:45 PM | | | | | PDT | | + + + + + | Temperature | 37.2 C (99 F) | 03/11/2016 1:36 PM | | | | | PDT | | + + + + + | Respiratory Rate | 14 | 03/11/2016 2:45 PM | | | | | PDT | | + + + + + | Oxygen Saturation | 100% | 03/11/2016 2:45 PM | | | | | PDT | | + + + + + | Inhaled Oxygen | - | - | | | Concentration | | | | + + + + + | Weight | 53.4 kg (117 lb 12.8 | 03/11/2016 11:31 AM | | | | oz) | PDT | | + + + + + | Height | 163.8 cm (5' 4.5") | 03/11/2016 11:31 AM | | | | | PDT | | + + + + + | Body Mass Index | 19.91 | 03/11/2016 11:31 AM | | | | | PDT | | + + + + + documented in this encounter Discharge Instructions Instructions Leslye Stovall RN - 03/11/2016Formatting of this note might be different f rom the original. Discharge Instructions for Pelvic Laparoscopy You had a procedure called pelvic laparoscopy. During this procedure, your doctor used smal l incisions in your abdomen toexamine your abdominal or pelvic organs and possibly to perf orm a procedure.Recovery from laparoscopy is faster than from open abdominal surgery (call ed laparotomy). Here's what you can do to speed your recovery following surgery. What to expect Remember, you can expect the following: The incisions on your abdomen may be tender or sore. You may have pain in your upper back or shoulders from the gas used to enlarge your ab domen. The gas helps your doctor see inside your pelvis and perform the procedure. The pain usually goes away in a day or two. Light bleeding from the vagina Soreness, bruising, and mild swelling near incisions Burning with urination for a few days Constipation Feeling tired, especially for the first 24 hours you are home Activity Take it easy for the rest of the day after you are discharged. Each day, do a little mor e as you feel able. Don t stay in bed. Get up and move around. Don t drive until your doctor advises that it's safe. Avoid strenuous activity for 2 weeks. Don't put anything in your vagina until your doctor tells you it is safe to do so. This includes tampons, and douches. Do not have sex until your doctor says it's OK. Incision and other care Take pain medicines as directed. Don t drink alcohol while on pain medicines. Wrap an ice pack or bag of frozen peas in a plastic bag; then cover with a thin cloth. P lace it over the bandaged incision area for no longer than 20 minutes at a time. Do this as needed to reduce pain and keep swelling down. Don t pull off the strips of tapeused to close your incisions. Let them fall off on their own. Shower as needed. If you still have a bandage, remove it the day after surgery. Don t swim or take a tub bath for 2 weeks. Follow-up Make a follow-up appointment as directed by our staff. When to call your doctor Call your doctor right away if you have any of the following: Increased abdominal pain Vomiting or nausea Diarrhea that doesn t go away Fever above 100.4F (38C) Shaking chills Signs of infection around the incision (redness, drainage, warmth, pain) Sudden chest pain or shortness of breath Dizziness or fainting [id number] [employer] [address] [place] [id number]. All righ ts reserved. This information is not intended as a substitute for professional medical care. Always follow your healthcare professional's instructions. Understanding Unilateral Salpingo-Oophorectomy A unilateral salpingo-oophorectomy is a type of surgery. During the surgery, a surgeon bucky ves one ovary and one fallopian tube from your pelvis. The ovaries are located on either tika e of the uterus. They make your eggs (ova). They also make the hormone estrogen. The fallopi an tubes link the ovaries to the uterus. They carry the ova to the uterus. You can still have children after you have this procedure. You have one ovary and fallopian tube left. How to say it [id number] Why unilateral salpingo-oophorectomy is done This procedure is done if you have cancer in an ovary or fallopian tube. Or you may have it to lower your risk for cancer in these parts of the body. You are at high risk if you have a family member who had ovarian or breast cancer. You may also have a mutation in the breast cancer susceptiblity (BRCA) genes. These genes make tumor suppressor proteins. If these gen es are mutated, they do not work as they should and cells are more likely to develop cancer. This procedure may also be done if you have your uterus removed. This is called a hysterect sangeetha. Other health problems may call for taking out an ovary and fallopian tube at the same time. How unilateral salpingo-oophorectomy is done You will check into a hospital. You may need to spend a few days there after this surgery. During the procedure: You are given medicine to make you fall asleep. You won t feel any pain. The surgeon makes a cut (incision) in your belly to reach your reproductive organs. The surgeon removes the ovary and fallopian tube. The surgeon then ties and stitches up all open wounds. The cut in the abdomen is closed up. Risks of unilateral salpingo-oophorectomy Stomach cancer Bleeding Infection [id number] [employer] [address] [place] [address], [place] [address]. All righ ts reserved. This information is not intended as a substitute for professional medical care. Always follow your healthcare professional's instructions. documented in this encounter Medications at Time of Discharge + + + +---------+ + + | Medication | Sig | Dispensed | Refills | Start | End Date | | | | | | Date | | + + + +---------+ + + | | Take 1-2 tablets by | 30 | 0 | 03/11/20 | | | HYDROcodone-acetamin | mouth every 6 hours | tablet | | 16 | 7 | | ophen (NORCO) 5-325 | as needed for Pain | | | | | | mg per tablet | for up to 30 doses. | | | | | + + + +---------+ + + documented as of this encounter Plan of Treatment Not on filedocumented as of this encounter Procedures + +--------+ + + + | Procedure Name | Priori | Date/Time | Associated Diagnosis | Comments | | | ty | | | | + +--------+ + + + | LAPAROSCOPIC | | 03/11/2016 | Cyst of right | | | SALPINGO-OOPHORECTOM | | 12:24 PM | ovary RLQ abdominal | | | Y | | PDT | pain | | + +--------+ + + + | POCT TEST, | Routin | 03/11/2016 | | Results for this | | URINE, QUAL | e | 11:20 AM | | procedure are in the | | | | PDT | | results section. | + +--------+ + + + | SURGICAL PATHOLOGY | Routin | 03/11/2016 | | Results for this | | EXAM | e | 12:00 AM | | procedure are in the | | | | PDT | | results section. | + +--------+ + + + documented in this encounter Results POCT Test, Urine, QUAL (03/11/2016 11:20 AM PDT) + + + + + [...] + + + | Internal QC | Indeterminate | | | | + + + + + + | Specific | | 1.010, 1.015, | | | | [place], | | 1.020, 1.025 | | | | POC | | | | | + + + + + + | Lot Number | [id number] | | | | + + + + + + | Expiration | 9-17 | | | | | Date | | | | | + + + + + + + + | Specimen | + + | Urine specimen | | (specimen) | + + Surgical Pathology Exam (03/11/2016 12:00 AM PDT) + + | Specimen | + + | | + + + + + | Narrative | Performed At | + + + | SPECIMEN(S): A RIGHT FALLOPIAN TUBE AND OVARY SPECIMEN SOURCE: | [facility] | | A. RIGHT FALLOPIAN TUBE AND OVARY CLINICAL HISTORY: N83.201 (cyst | [facility] | | of right ovary), R10.31 (right lower quadrant pain) FINAL | | | PATHOLOGIC DIAGNOSIS: Right fallopian tube and ovary: - Benign | | | ovary with multiple cystic follicles (see comment). - Negative for | | | atypia or malignancy. - Benign fallopian tube with no | | | histopathological changes. COMMENT: This ovary shows multiple | | | cystic follicles raising the possibility of polycystic ovary disease | | | (PCO, formerly called Gomez-Deven syndrome). Clinical correlation | | | is needed. TJB:[facility]:C2NR GROSS DESCRIPTION: The specimen is | | | received in formalin in a container labeled "Donna Camarena, right | | | tube and ovary". Received are four tissue fragments consistent with | | | fallopian tube and ovary with an aggregate measurement of 4.5 x 3.2 x | | | 2 cm. The ovarian segment measures 3 x 2.5 x 1.8 cm. The ovary is | | | sectioned to reveal multiple thin-walled bland appearing cysts without | | | excrescences or mass-like lesions within the cyst. Road Test Examiner | | | sections of ovary and fallopian tube are submitted in cassettes | | | (A1-A2). CLR:[facility] MICROSCOPIC EXAMINATION: Histologic sections of | | | all submitted blocks are examined by light microscopy. These | | | findings, together with the gross examination, support the pathologic | | | diagnosis. PERFORMING LABORATORY: Tissue processing and slide | | | preparation were performed by [employer], [facility], | | | [address], [place] [address] (Business Lawyer: Rafa Wing | | | Kb; CLIA#: [id number]). Professional interpretation was performed | | | by [employer], [facility], [address], [place], [place] | | | [address] (Business Lawyer: Rafa Wing M.D.; CLIA#: [id number]). | | | Diagnostician: Josh Garcia MD Pathologist Electronically | | | Signed 03/12/2016 | | + + + + +---------+ + + | Performing | Address | City/State/Zipcode | Phone Number | | Organization | | | | + +---------+ + + | [facility] | | | | | [place] | | | | + +---------+ + + documented in this encounter Visit Diagnoses + + | Diagnosis | + + | Cyst of right ovary Other and unspecified ovarian cyst | + + | RLQ abdominal pain Abdominal pain, right lower quadrant | + + documented in this encounter Administered Medications + +--------+ +--------+------+ + | Medication Order | MAR | Action | Dose | Rate | Site | | | Action | Date | | | | + +--------+ +--------+------+ + | bupivacaine 0.25%-EPINEPHrine | Given | 03/11/ | 16 mLs | | Surgical | | 1:200,000 (PF) injection PRN, | | 16 1:17 | | | Site | | Starting Joanie 03/11/16 at 1317, | | PM PDT | | | | | Intra-op | | | | | | + +--------+ +--------+------+ + +---+---+ | | | +---+---+ + +-------+ +--------+---+---+ | fentaNYL (PF) injection 25-50 | Given | 03/11/20 | 50 mcg | | | | mcg 25-50 mcg, Intravenous, | | 16 2:45 | | | | | EVERY 5 MIN PRN, Pain, Starting | | PM PDT | | | | | Joanie 03/11/16 at 1320, Maximum | | | | | | | total dose 250 mcg. PACU IV | | | | | | | Narcotic Priority: Only use | | | | | | | fentanyl for immediate post-op | | | | | | | pain (one dose) or breakthrough | | | | | | | pain when any other IV narcotics | | | | | | | ordered have been ineffective (if | | | | | | | ordered). If both morphine and | | | | | | | hydromorphone are ordered, use | | | | | | | morphine first, and use | | | | | | | hydromporphone if morphine | | | | | | | ineffective., Recovery/Phase I | | | | | | + +-------+ +--------+---+---+ +-------+ +--------+---+---+ | Given | 03/11/20 | 50 mcg | | | | | 16 1:58 | | | | | | PM PDT | | | | +-------+ +--------+---+---+ | Given | 03/11/20 | 25 mcg | | | | | 16 1:45 | | | | | | PM PDT | | | | +-------+ +--------+---+---+ +---+---+ | | | +---+---+ + +-------+ +--------+---+---+ | HYDROmorphone (DILAUDID) | Given | 03/11/20 | 0.3 mg | | | | injection 0.2-0.5 mg 0.2-0.5 mg, | | 16 2:19 | | | | | Intravenous, EVERY 5 MIN PRN, | | PM PDT | | | | | Pain, Starting Joanie 03/11/16 at | | | | | | | 1320, Maximum total dose 4 mg. | | | | | | | PACU IV Narcotic Priority: Only | | | | | | | use fentanyl for immediate | | | | | | | post-op pain (one dose) or | | | | | | | breakthrough pain when any other | | | | | | | IV narcotics ordered have been | | | | | | | ineffective (if ordered). If | | | | | | | both morphine and hydromorphone | | | | | | | are ordered, use morphine first, | | | | | | | and use hydromporphone if | | | | | | | morphine ineffective., | | | | | | | Recovery/Phase I | | | | | | + +-------+ +--------+---+---+ +-------+ +--------+---+---+ | Given | 03/11/20 | 0.2 mg | | | | | 16 2:15 | | | | | | PM PDT | | | | +-------+ +--------+---+---+ | Given | 03/11/20 | 0.2 mg | | | | | 16 2:10 | | | | | | PM PDT | | | | +-------+ +--------+---+---+ +---+---+ | | | +---+---+ + +-------+ +--------+---+---+ | HYDROmorphone (DILAUDID) | Given | 03/11/20 | 0.5 mg | | | | injection 0.5 mg 0.5 mg, | | 16 12:05 | | | | | Intravenous, ONCE, Joanie 03/11/16 | | PM PDT | | | | | at 1230, For 1 dose, Pre-op | | | | | | + +-------+ +--------+---+---+ +---+---+ | | | +---+---+ + +-------+ +-------+---+---+ | ketorolac (TORADOL) injection | Given | 03/11/20 | 30 mg | | | | 30 mg 30 mg, Intravenous, ONCE, | | 16 3:18 | | | | | Joanie 03/11/16 at 1515, For 1 dose, | | PM PDT | | | | | If urine output is less than | | | | | | | 240ml/8 hours (30ml/hr) or if | | | | | | | signs of bleeding, contact MD and | | | | | | | hold., Post-op/Phase II | | | | | | + +-------+ +-------+---+---+ +---+---+ | | | +---+---+ + +-------+ +-------+---+---+ | oxyCODONE (ROXICODONE) tablet | Given | 03/11/ | 10 mg | | | | 5-10 mg 5-10 mg, Oral, EVERY 3 | | 16 3:19 | | | | | HOURS PRN, Pain, Starting Joanie | | PM PDT | | | | | 03/11/16 at 1457, First dose must | | | | | | | be the lowest dose, can titrate | | | | | | | to effective dose by repeat of | | | | | | | lowest dose every 60 minutes prn | | | | | | | pain, may not exceed maximum dose | | | | | | | ordered per interval. Use Pasero | | | | | | | Sedation Scale., Post-op/Phase | | | | | | | II | | | | | | + +-------+ +-------+---+---+ +---+---+ | | | +---+---+ + +---------+ +---------+---+ + | scopolamine (TRANSDERM-SCOP) 1 | Patch | 03/11/20 | 1 patch | | Ear-Behi | | mg/3 days 1 patch 1 patch, | Applied | 16 11:52 | | | nd Right | | Transdermal, PRN, adult patients | | AM PDT | | | | | with history of PONV, Starting | | | | | | | Joanie 03/11/16 at 1118, For 1 dose, | | | | | | | PRN for adult patients <65 yo | | | | | | | with history of PONV. Hold for | | | | | | | patients with glaucoma, dementia, | | | | | | | altered mental status, or | | | | | | | history of allergy to | | | | | | | Scopolamine. Apply to mastoid | | | | | | | process behind ear., Pre-op | | | | | | + +---------+ +---------+---+ + +---+---+ | | | +---+---+ documented in this encounter
--- OUTSIDE RECORDS SUMMARY | ~2019-10-30 | XMS | Encounter Summary ---
Demographics + + + | Address | [address] | | | [place] [address] | + + + | Home Phone | | + + + | Preferred Language | Unknown | + + + | Marital Status | Single | + + + | Denominational Affiliation | 1013 | + + + | Race | Unknown | + + + | Ethnic Group | Unknown | + + + Author + + + | Author | [facility] | | | and Johnana | + + + | Organization | [facility] | | [...] | | | | | [place] [address] | | + + + + + | Ab Romykia | ECON | Unknown | | + + + + + Care Team Providers + +------+ + | Care Oscillograph Technician Name | Role | Phone | + [...] | +--------+ + + + + | 01/12/ | Emergency | [facility] | Edenilson Isabel | Pelvic pain (Primary | | 2018 | | [facility] | Mukesh Ulloa MD | Dx) | | | | CENTER [address] | [address] | | | | | [place] | [place], [place] | | | | | [address] | [address] | | | | | [phone] | | | +--------+ + + + [...] + + + | Blood Pressure | 119/59 | 01/12/2018 6:33 PM | | | | | PDT | | + + + + + | Pulse | 80 | 01/12/2018 6:33 PM | | | | | PDT | | + + + + + | Temperature | 37.1 C (98.8 F) | 01/12/2018 6:33 PM | | | | | PDT | | + + + + + | Respiratory Rate | 16 | 01/12/2018 6:33 PM | | | | | PDT | | + + + + + | Oxygen Saturation | 100% | 01/12/2018 6:33 PM | | | | | PDT | | + + + + + | Inhaled Oxygen | - | - | | | Concentration | | | | + + + + + | Weight | 54.4 kg (119 lb 14.9 | 01/12/2018 6:33 PM | | | | oz) | PDT | | + + + + + | Height | 162.6 cm (5' 4") | 01/12/2018 6:33 PM | | | | | PDT | | + + + + + | Body Mass Index | 20.59 | 01/12/2018 6:33 PM | | | | | PDT | | + + + + + documented in this encounter Discharge Instructions Instructions Edenilson Isabel MD - 01/12/2018Please follow-up in [facility]. Return for severe worsening symptoms. Take pain medication sparingly. documented in this encounter Medications at Time of Discharge + + + +---------+ + + | Medication | Sig | Dispensed | Refills | Start | End Date | | | | | | Date | | + + + +---------+ + + | doxycycline | | | 0 | 01/03/20 | | | (MONODOX) 100 mg | | | | 18 | 8 | | capsule | | | | | | + + + +---------+ + + | ferrous sulfate | Take 325 mg by mouth | | 0 | | | | 325 mg tablet | daily (with | | | | 8 | | | breakfast). | | | | | + + + +---------+ + + | gabapentin | Take 300 mg by mouth | | 0 | | | | (NEURONTIN) 300 mg | 3 times daily. | | | | 8 | | capsule | | | | | | + + + +---------+ + + | | Take 1-2 tablets by | 15 | 0 | 12/29/19 | | | HYDROcodone-acetamin | mouth every 6 hours | tablet | | 18 | 8 | | ophen (NORCO) 5-325 | as needed for Pain. | | | | | | mg per tablet | | | | | | + + + +---------+ + + | hydrOXYzine | Take 50 mg by mouth | | 0 | | | | hydrochloride | Twice daily as | | | | 9 | | (ATARAX) 25 mg | needed for Anxiety. | | | | | | tablet | | | | | | + + + +---------+ + + | Multiple | Take 1 tablet by | | 0 | | | | Vitamins-Minerals | mouth Daily. | | | | 8 | | (MULTIVITAL PO) | | | | | | + + + +---------+ + + | naproxen | TAKE ONE TABLET | 180 | 1 | 12/09/19 | | | (NAPROSYN) 500 mg | TWICE DAILY WITH | tablet | | 18 | 9 | | tablet | BREAKFAST AND DINNER | | | | | + + + +---------+ + + | ondansetron | Take 1 tablet by | 15 | 0 | 01/13/20 | | | (ZOFRAN ODT) 4 mg | mouth every 6 hours | tablet | | 18 | 8 | | disintegrating | as needed. | | | | | | tablet | | | | | | + + + +---------+ + + | ondansetron | Take 1 tablet by | 15 | 0 | 12/29/19 | | | (ZOFRAN ODT) 4 mg | mouth every 6 hours | tablet | | 18 | 8 | | disintegrating | as needed. | | | | | | tablet | | | | | | + + + +---------+ + + | oxybutynin | | | 0 | 01/05/20 | | | (DITROPAN) 5 mg | | | | 18 | 8 | | tablet | | | | | | + + + +---------+ + + | | Take 1 tablet by | 15 | 0 | 01/13/20 | | | oxyCODONE-acetaminop | mouth every 6 hours | tablet | | 18 | 8 | | hen (PERCOCET) 5-325 | as needed for Pain. | | | | | | mg per tablet | | | | | | + + + +---------+ + + | traZODone | Take 100 mg by mouth | | 0 | 01/05/20 | | | (DESYREL) 100 mg | nightly as needed. | | | 18 | 8 | | tablet | | | | | | + + + +---------+ + + | venlafaxine | | | 0 | 01/05/20 | | | (EFFEXOR XR) 150 mg | | | | 18 | 8 | | 24 hr capsule | | | | | | + + + +---------+ + + documented as of this encounter Plan of Treatment + +------+--------+ + + | Name | Type | Priori | Associated Diagnoses | Date/Time | | | | ty | | | + +------+--------+ + + | ED INFORMATION | CELSO | Routin | | 01/12/2018 5:50 PM | | EXCHANGE | | e | | PDT | + +------+--------+ + + documented as of this encounter Procedures + +--------+ + + + | Procedure Name | Priori | Date/Time | Associated Diagnosis | Comments | | | ty | | | | + +--------+ + + + | POCT URINALYSIS, | STAT | 01/12/2018 | | Results for this | | AUTO WITH CONF | | 7:35 PM | | procedure are in the | | | | PDT | | results section. | + +--------+ + + + | ED INFORMATION | Routin | 01/12/2018 | | | | EXCHANGE | e | 5:50 PM | | | | | | PDT | | | + +--------+ + + + +---+--------+ | | | | | Proced | | | ure | | | Note - | | | Thomas, | | | Lab In | | | | | | Hlseve | | | n - | | | 08// | | | 2018 | | | 5:51 | | | PM PDT | | [...] | | | FICATI | | | ON?08/ | | | 23/201 | | | 8 | | | 17:47? | | | SHAH | | | LSH, | | | SABRIN | | | A | | | K?MRN: | | | | | | [id number] | | | [id number] | | | his | | | [...] | | | ent/a9 | | | [id number] | | | [id number] | | | [id number] | | | [id number] | | | [id number] | | | [id number] | | | Securi | | | ty | | | Events | | | No | | | recent | | | | | | Securi | | | ty | | | Events | | | | | | curren | | | tly on | | | | | | fileED | | | Care | | | [...] | | | int | | | Aug | | | 23, | | | 2018 | | | Provid | | | ence | | | [facility] | [facility] | [place] | | | [place] | | | Emerge | | | ncy | | | Emerge | | | ncy | | | | | | Abdomi | | | nal | | | Pain | | | Aug | | | 21, | | | 2018 | | | Provid | | | ence | | | [facility] | [facility] | | [place] | | | [place] | | | Emerge | | | ncy | | | Emerge | | | ncy | | | abd | | | and | | | back | | | pain | | | | | | Abdomi | | | nal | | | Pain | | | | | | Nausea | | | | | | Pelvic | | | and | | | perine | | | al | | | pain | | | Aug 8, | | | 2018 | | | Provid | | | ence | | | [facility] | [facility] | | [place] | | | [place] | | | Emerge | | | ncy | | | Emerge | | | ncy | | | Abd | | | pain | | | | | | Abdomi | | | nal | | | Pain | | | | | | Pelvic | | | and | | | perine | | | al | | | pain | | | Caleb | | | 23, | | | 2018 | | | Provid | | | ence | | | [facility] | | | [facility] | | [place] | | | [place] | | | Emerge | | | ncy | | | Emerge | | | ncy | | | Lower | | | | | | abd/ba | | | ck | | | pain | | | Back | | | Pain | | | | | | Abdomi | | | nal | | | Pain | | | | | | Pelvic | | | and | | | perine | | | al | | | pain | | | | | | Unspec | | | ified | | | abdomi | | | nal | | | pain | | | Caleb | | | 22, | | | 2018 | | | Provid | | | ence | | | [facility] | | | [facility] | | [place] | | | [place] | | | Emerge | | | ncy | | | Emerge | | | ncy | | | | | | abd/ba | | | ck | | | pain | | | | | | Abdomi | | | nal | | | Pain | | | | | | Pelvic | | | and | | | perine | | | al | | | pain | | | | | | Abnorm | | | al | | | uterin | | | e and | | | vagina | | | l | | | bleedi | | | ng, | | | unspec | | | [...] | | | Center | | | 11 0 | | | Total | | | 11 0 | | | Note: | | [...] | | visits | | | . PDMP | | | | | | Report | | | [...] MED | | | | | | 2018-0 | | | 8-08 | | | HYDROC | | | ODONE- | | | ACETAM | | | IN | | | 5-325 | | | MG 15 | | | EDENILSON | | | ISABEL | | | 2 0 | | | 2018-0 | | | 7-24 | | | TRAMAD | | | OL HCL | | | 50 MG | | | | | | TABLET | | | 10 | | | MICHAE | | | L | | | MINCKL | | | ER 4 | | | 10 | | | 2018-0 | | | 7-22 | | | HYDROC | | | ODONE- | | | ACETAM | | | IN | | | 5-325 | | | MG 15 | | | KIRSTEN | | | MAXWEL | | | L 2 | | | 18.75 | | | Rx | | | Summar | | | y (12 | | | Mo.)Me | | | tric | | | Count | | | CS | | | II-V | | | Rx 9 | | | CS-II | | | Rx 8 | | | Quanti | | | ty | | | Dispen | | | sed | | | 220 | | | Unique | | | | | | Prescr | | | ibers | | | 4 | | | Unique | | | | | | Pharma | | | cies 2 | | | | | | Benzos | | | 0 | | | Opioid | | | s 5 | | | Long | | | [...] | | | Dates | | | ABDI | | | , | | | PJ | | | , MD | | | Family | | | | | | Medici | | | ne | | | (509) | | | [phone] | | | 00 | | | (509) | | | [phone] | | | 75 | | | Curren | | | t | | | PJ | | | ABDI | | | | | | Primar | | | y Care | | | (509) | | | | | | 522-58 | | | 22 | | | (509) | | | 522-55 | | | 75 | | | Curren | | | t | | | DARCY | | | A | | | FRANCES | | | | | | Primar | | | y Care | | | (509) | | | | | | [phone] | | | 34 | | | (509) | | | [phone] | | | 90 | | | Curren | | | t | | | John | | | B | | | Carmelo | | | Primar | | | y Care | | | | | | Curren | | | t | | | BRODIE | | | WONG | | | Primar | | | y Care | | | | | | (509) | | | [phone] | | | 43 Oct | | | 1, | | | 2016 - | | | | | | Curren | | | t | | | Criter | | | ia met | | | PDMP | | | | | | Medica | | | id 5 | | | in 12 | | | 4 | | | visits | | | in | | | 60Know | | | n | | | [...] | | | ? | | | 2018 | | | Collec | | | [...] | +---+--------+ documented in this encounter Results POCT Urinalysis Dipstick Automated (01/12/2018 7:35 PM PDT) + + + + + + | Component | Value | Ref Range | Performed | Pathologist | | | | | At | Signature | + + + + + + | Color, UA, | Yellow | Yellow, Light | | | | POC | | Yellow | | | + + + + + + | Clarity, | Slightly Cloudy | | | | | UA, POC [...] + + + + | Specific | 1.020 | 1.001 - 1.030 | | | | [place], | | | | | | UA, POC | | | | | + + + + + + | Blood, UA, | Trace Intact (A) | Negative | | | | POC | | | | | + + + + + + | pH, UA, POC | 6.0 | 5.0, 6.0, 7.0, | | | [...] Diagnosis | + + | Pelvic pain - Primary | + + documented in this encounter Administered Medications + +--------+ +--------+------+ + | Medication Order | MAR | Action | Dose | Rate | Site | | | Action | Date | | | | + +--------+ +--------+------+ + | HYDROmorphone (DILAUDID) | Given | 01/13/20 | 0.5 mg | | Deltoid- | | injection 0.5 mg 0.5 mg, | | 18 7:10 | | | Right | | Intramuscular, ONCE, [facility] 01/12/18 | | PM PDT | | | | | at 1900, For 1 dose | | | | | | + +--------+ +--------+------+ + +---+---+ | | | +---+---+ + +-------+ +------+---+---+ | LORazepam (ATIVAN) tablet 1 mg | Given | 01/13/20 | 1 mg | | | | 1 mg, Oral, ONCE, [facility] 01/12/18 at | | 18 7:10 | | | | | 1900, For 1 dose | | PM PDT | | | | + +-------+ +------+---+---+ +---+---+ | | | +---+---+ + +-------+ +---------+---+---+ | oxyCODONE-acetaminophen | Given | 01/13/20 | 2 | | | | (PERCOCET) 5-325 mg per tablet 2 | | 18 7:44 | tablets | | | | tablet 2 tablet, Oral, ONCE, Joanie | | PM PDT | | | | | 01/12/18 at 1945, For 1 dose | | | | | | + +-------+ +---------+---+---+ +---+---+ | | | +---+---+ documented in this encounter
--- OUTSIDE RECORDS SUMMARY | ~2019-10-30 | XMS | Encounter Summary ---
Demographics + + + | Address | [address] | | | [place] [address] | + + + | Home Phone | | + + + | Preferred Language | Unknown | + + + | Marital Status | Single | + + + | Anglican Affiliation | 1013 | + + + [...] | | | | | [place] [address] | | + + + + + | Ab Romykia | ECON | Unknown | | + + + + + Care Team Providers + +------+ + | Care Vocational Psychologist Name | Role | Phone | + +------+ + | Pj Abdi MD | PCP | | + +------+ + Reason for Visit + + + | Reason | Comments | + + + | Lab Results | | + + + Encounter Details +--------+ + + + + | Date | Type | Department | Care Team | Description | +--------+ + + + + | 10/04/ | Telephone | [facility] | Pj Abdi, | Lab Results | | 2019 | | [facility] | [address] | | | | | [address] | [place] | | | | | [place] | [address] | | | | | [address] | | | | | | [phone] | | | +--------+ + + + [...]
--- OUTSIDE RECORDS SUMMARY | ~2019-10-30 | XMS | Encounter Summary ---
Demographics + + + | Address | [address] | | | [place] [address] | + + + | Home Phone | | + + + | Preferred Language | Unknown | + + + | Marital Status | Single | + + + | Temple Affiliation | 1013 | + + + | Race | Unknown | + + + | Ethnic Group | Unknown | + + + Author + + + | Author | [facility] | | | and Johnana | + + + | Organization | [facility] | | | and [...] | | | | | [place] [address] | | + + + + + | Ab Romykia | ECON | Unknown | | + + + + + Care Team Providers + +------+ + | Care Chief Operator Reformer Name | Role | Phone | + +------+ + PCP | Unavailable | + +------+ + Encounter Details +--------+ + + + + | Date | Type | Department | Care Team | Description | +--------+ + + + + | 06/20/ | Hospital | [facility] | Precious Parekh | | | 2011 - | Encounter | MED CTR EM[facility] | MD Rebecca [address] | | | | | CENTER [address] | [facility], | | | 06/21/ | | [place] | [place] [address] | | | 2011 | | [address] | [phone] | | | | | [phone] | | | +--------+ + + + [...] + +--------+ + + + | URINALYSIS, REFLEX | Routin | 06/20/2011 | | Results for this | | MICROSCOPIC AND/OR | e | 11:14 PM | | procedure are in the | | CULTURE | | PST | | results section. | + +--------+ + + + documented in this encounter Results Urinalysis, Reflex Microscopic and/or Culture (06/20/2011 11:14 PM PST) + + + + + + | Component | Value | Ref Range | Performed | Pathologist | | | | | At | Signature | + + + + + + | COLLECTION | CL.CATCH | | [facility] | | | [facility] | | | [facility] | | | | | | MEDICAL | | | | | | CENTER - | | | | | | LABORATORY | | + + + + + + | Color, | YELLOW | | [facility] | | | Urine | | | [facility] | | | | | | MEDICAL | | | | | | CENTER - | | | | | | LABORATORY | | + + + + + + | Clarity | CLEAR | | [facility] | | | | | | [facility] | | | | | | MEDICAL | | | | | | CENTER - | | | | | | LABORATORY | | + + + + + + | Glucose, | NEGATIVE | NEGATIVE mg/dL | [facility] | | | Urine | | | [facility] | | | | | | MEDICAL | | | | | | CENTER - | | | | | | LABORATORY | | + + + + + + | Bilirubin, | NEGATIVE | NEGATIVE | [facility] | | | Urine | | | [facility] | | | | | | MEDICAL | | | | | | CENTER - | | | | | | LABORATORY | | + + + + + + | Ketones, | NEGATIVE | NEGATIVE | [facility] | | | Urine | | | [facility] | | | | | | MEDICAL | | | | | | CENTER - | | | | | | LABORATORY | | + + + + + + | Specific | 1.025 | 1.001 - 1.030 | [facility] | | | [place], | | | [facility] | | | Urine | | | MEDICAL | | | | | | CENTER - | | | | | | LABORATORY | | + + + + + + | Blood, | NEGATIVE | NEGATIVE | [facility] | | | Urine | | | [facility] | | | | | | MEDICAL | | | | | | CENTER - | | | | | | LABORATORY | | + + + + + + | pH, Urine | 5.5 | 5.0 - 8.0 | [facility] | | | | | | [facility] | | | | | | MEDICAL | | | | | | CENTER - | | | | | | LABORATORY | | + + + + + + | Protein, | NEGATIVE | NEGATIVE mg/dL | [facility] | | | Urine | | | [facility] | | | | | | MEDICAL | | | | | | CENTER - | | | | | | LABORATORY | | + + + + + + | Urobilinoge | NORMAL | NORMAL EU/dL | [facility] | | | n, Urine | | | [facility] | | | | | | MEDICAL | | | | | | CENTER - | | | | | | LABORATORY | | + + + + + + | Nitrite, | NEGATIVE | NEGATIVE | [facility] | | | Urine | | | [facility] | | | | | | MEDICAL | | | | | | CENTER - | | | | | | LABORATORY | | + + + + + + | Leukocyte | NEGATIVE | NEGATIVE | [facility] | | | Esterase, | | | [facility] | | | Urine | | | MEDICAL | | | | | | CENTER - | | | | | | LABORATORY | | + + + + + + | White Blood | 2-4 | 0 - 1 /hpf | [facility] | | | Cells, | | | [facility] | | | Urine | | | MEDICAL | | | | | | CENTER - | | | | | | LABORATORY | | + + + + + + | Red Blood | NONE | 0 - 4 /hpf | [facility] | | | Cells, | | | [facility] | | | Urine | | | MEDICAL | | | | | | CENTER - | | | | | | LABORATORY | | + + + + + + | Squamous | MODERATE | FEW /hps | [facility] | | | Epithelial | | | [facility] | | | Cells, | | | MEDICAL | | | Urine | | | CENTER - | | | | | | LABORATORY | | + + + + + + | Bacteria, | RARE | NONE /hpf | [facility] | | | Urine | | | [facility] | | | | | | MEDICAL | | | | | | CENTER - | | | | | | LABORATORY | | + + + + + + | Culture | NO | | [facility] | | | Indicated | | | [facility] | | | | | | MEDICAL | | | | | | CENTER - | | | | | | LABORATORY | | + + + + + + + + | Specimen | + + | | + + + + + + + | Performing | Address | City/[facility] | Phone Number | | Organization | | | | + + + + + | [facility] | [address] | [place] | [phone] | | [facility] | | [address] | | | - LABORATORY | | | | + + + + + | [facility] | [address] | [place] | | | [facility] | | [id number] | | | - LABORATORY | | | | + + + + + documented in this encounter Visit Diagnoses Not on filedocumented in this encounter"
--- OUTSIDE RECORDS SUMMARY | ~2019-10-30 | XMS | Encounter Summary ---
Demographics + + + | Address | [address] | | | [place] [address] | + + + | Home Phone | | + + + | Preferred Language | Unknown | + + + | Marital Status | Single | + + + | Restorationism Affiliation | 1013 | + + + | Race | Unknown | + + + | Ethnic Group | Unknown | + + + Author + + + | Author | [facility] | | | and Johnana | + + + | Organization | [facility] | | | [...] | | | | | [place] [address] | | + + + + + | Ab Romykia | ECON | Unknown | | + + + + + Care Team Providers + +------+ + | Care Superintendent Refuse Disposal Name | Role | Phone | + +------+ + PCP | Unavailable | + +------+ + Encounter Details +--------+ + + + + | Date | Type | Department | Care Team | Description | +--------+ + + + + | 11/16/ | Hospital | [facility] | Rebecca Astudillo MD | | | 2011 | Encounter | [facility] | [place] | | | | | CENTER [address] | | | | | | [place], [place] | | | | | | [address] | | | | | | [phone] | | | +--------+ + + + [...] + + + | CBC WITH | Routin | 11/17/2011 | | Results for this | | DIFFERENTIAL | e | 10:21 PM | | procedure are in the | | | | PDT | | results section. | + +--------+ + + + | BASIC METABOLIC | Routin | 11/17/2011 | | Results for this | | PANEL | e | 10:21 PM | | procedure are in the | | | | PDT | | results section. | + +--------+ + + + documented in this encounter Results Basic Metabolic Panel (11/17/2011 10:21 PM PDT) + + + + + + | Component | Value | Ref Range | Performed | Pathologist | | | | | At | Signature | + + + + + + | Glucose | 111 (H) | 70 - 109 mg/dL | [facility] | | | | | | [facility] | | | | | | [facility] | | | | | | [facility] - | | | | | | LABORATORY | | + + + + + + | Calcium | 9.1 | 8.3 - 10.5 | [facility] | | | | | mg/dL | [facility] | | | | | | [facility] | | | | | | [facility] - | | | | | | LABORATORY | | + + + + + + | BUN | 6 (L) | 7 - 18 mg/dL | [facility] | | | | | | [facility] | | | | | | [facility] | | | | | | C[facility] - | | | | | | LABORATORY | | + + + + + + | Creatinine | 0.67 | 0.60 - 1.30 | [facility] | | | | | mg/dL | [facility] | | | | | | [facility] | | | | | | C[facility] - | | | | | | LABORATORY | | + + + + + + | Estimated | >60Comment: For | >60 mL/min/A | [facility] | | | GFR | -Americans, | | [facility] | | | | please multiply the | | MEDICAL | | | | result by 1.210 | | CENTER - | | | | This is an estimated | | LABORATORY | | | | GFR and is based on a | | | | | | standard adult | | | | | | body mass (A=1.73m2) and | | | | | | serum creatinine | | | | + + + + + + | BUN/Creatin | 9.0 (L) | 12 - 20 | [facility] | | | ine Ratio | | | [facility] | | | | | | [facility] | | | | | | CENTER - | | | | | | LABORATORY | | + + + + + + | Na | 138 | 136 - 149 mEq/L | [facility] | | | | | | [facility] | | | | | | [facility] | | | | | | [facility] - | | | | | | LABORATORY | | + + + + + + | K | 3.2 (L) | 3.5 - 5.1 mEq/l | [facility] | | | | | | [facility] | | | | | | [facility] | | | | | | CENTER - | | | | | | LABORATORY | | + + + + + + | Cl | 106 | 98 - 109 mEq/l | [facility] | | | | | | [facility] | | | | | | [facility] | | | | | | [facility] - | | | | | | LABORATORY | | + + + + + + | CO2 | 25 | 24 - 31 mEq/L | [facility] | | | | | | [facility] | | | | | | [facility] | | | | | | CENTER - | | | | | | LABORATORY | | + + + + + + | Anion Gap | 10.2 | 6.0 - 17.0 | [facility] | | | | | | [facility] [...] [address] | [place] | [phone] | | [facility] | | [address] | | | - LABORATORY | | | | + + + + + | [facility] | [address] | [place] | | | [facility] | | [id number] [[email or web address]] | | | - LABORATORY | | | | + + + + + CBC with Differential (11/17/2011 10:21 PM PDT) + +---------+ + + + | Component | Value | Ref Range | Performed | Pathologist | | | | | At | Signature | + +---------+ + + + | WBC | 10.0 | 4.0 - 11.0 K/uL | [facility] | | | | | | [facility] | | | | | | [facility]ICAL | | | | | | CENTER - | | | | | | LABORATORY | | + +---------+ + + + | RBC | 4.09 | 3.70 - 5.20 | [facility] | | | | | M/uL | [facility] | | | | | | [facility] | | | | | | CENTER - | | | | | | LABORATORY | | + +---------+ + + + | Hemoglobin | 13.1 | 11.5 - 16.0 | [facility] | | | | | gm/dL | [facility] | | | | | | MEDICAL | | | | | | CENTER - | | | | | | LABORATORY | | + +---------+ + + + | Hematocrit | 37.5 | 34.0 - 47.0 % | [facility] | | | | | | [facility] | | | | | | [facility] | | | | | | CENTER - | | | | | | LABORATORY | | + +---------+ + + + | MCV | 91.9 | 83.0 - 101.0 fL | [facility] | | | | | | [facility] | | | | | | MED[facility] | | | | | | CENTER - | | | | | | LABORATORY | | + +---------+ + + + | MCH | 32.0 | 28.0 - 35.0 pg | [facility] | | | | | | [facility] | | | | | | [facility] | | | | | | CENTER - | | | | | | LABORATORY | | + +---------+ + + + | MCHC | 34.8 | 32.0 - 36.0 | [facility] | | | | | g/dL | [facility] | | | | | | [facility] | | | | | | CENTER - | | | | | | LABORATORY | | + +---------+ + + + | RDW-CV | 12.5 | <15.0 % | [facility] | | | | | | [facility] | | | | | | [facility]ICAL | | | | | | CENTER - | | | | | | LABORATORY | | + +---------+ + + + | Platelet | 278 | 140 - 440 K/uL | [facility] | | | Count | | | [facility] | | | | | | MEDICAL | | | | | | CENTER - | | | | | | LABORATORY | | + +---------+ + + + | % | 71.3 | 45 - 75 % | [facility] | | | Neutrophils | | | [facility] | | | | | | MEDICAL | | | | | | CENTER - | | | | | | LABORATORY | | + +---------+ + + + | % | 22.2 | 20 - 45 % | [facility] | | | Lymphocytes | | | [facility] | | | | | | MEDICAL | | | | | | CENTER - | | | | | | LABORATORY | | + +---------+ + + + | % Monocytes | 5.6 | 4 - 12 % | [facility] | | | | | | [facility] | | | | | | MEDICAL | | | | | | CENTER - | | | | | | LABORATORY | | + +---------+ + + + | % | 0.6 | 0 - 5 % | [facility] | | | Eosinophils | | | [facility] | | | | | | MEDICAL | | | | | | CENTER - | | | | | | LABORATORY | | + +---------+ + + + | % Basophils | 0.3 | 0 - 1 % | [facility] | | | | | | [facility] | | | | | | MEDICAL | | | | | | CENTER - | | | | | | LABORATORY | | + +---------+ + + + | Absolute | 7.2 (H) | 1.5 - 6.6 K/uL | [facility] | | | Neutrophils | | | [facility] | | | | | | MEDICAL | | | | | | CENTER - | | | | | | LABORATORY | | + +---------+ + + + | Absolute | 2.2 | 0.6 - 3.2 K/uL | [facility] | | | Lymphocytes | | | [facility] | | | | | | MEDICAL | | | | | | CENTER - | | | | | | LABORATORY | | + +---------+ + + + | Absolute | 0.6 | 0.0 - 1.0 K/uL | [facility] | | | Monocytes | | | [facility] | | | | | | MEDICAL | | | | | | CENTER - | | | | | | LABORATORY | | + +---------+ + + + | Absolute | 0.1 | 0.0 - 0.4 K/uL | [facility] | | | Eosinophils | | | [facility] | | | | | | MEDICAL | | | | | | CENTER - | | | | | | LABORATORY | | + +---------+ + + + | Absolute | 0.0 | 0.0 - 0.1 K/uL | [facility] | | | Basophils | | | [facility] | | | | | | MEDICAL | | | | | | CENTER - | | | | | | LABORATORY | | + +---------+ + + + + + | Specimen | + + | | + + + + + + + | Performing | Address | City/State/Zipcode | Phone Number | | Organization | | | | + + + + + | [facility] | [address] | [place] | [phone] | | [facility] | | [address] | | | - LABORATORY | | | | + + + + + | [facility] | [address] | [place] | | | [facility] | | [address] [[email or web address]] | | | - LABORATORY | | | | + + + + + documented in this encounter Visit Diagnoses Not on filedocumented in this encounter"
--- OUTSIDE RECORDS SUMMARY | ~2019-10-30 | XMS | Encounter Summary ---
Demographics + + + | Address | [address] | | | [place] [address] | + + + | Home Phone | | + + + | Preferred Language | Unknown | + + + | Marital Status | Single | + + + | Voodoo Affiliation | 1013 | + + + | Race | Unknown | + + + | Ethnic Group | Unknown | + + + Author + + + | Author | [facility] | | | and Johnana | + + + | Organization | [facility] | | | [...] | | | | | [place] [address] | | + + + + + | Absweta Bunch | ECON | Unknown | | + + + + + Care Team Providers + +------+ + | Care Dental Assisting Instructor Name | Role | Phone | + +------+ + | Pj Abdi MD | PCP | | + +------+ + Reason for Visit + + + | Reason | Comments | + + + | Foot Pain | left | + + + Encounter Details +--------+ + + + + | Date | Type | Department | Care Team | Description | +--------+ + + + + | 09/16/ | Emergency | [facility] | Billy Munoz, | Contusion of right | | 2018 | | MED CTR EMERGENCY | MD [address] | foot, initial | | | | CENTER [address] | [place] | encounter (Primary | | | | [place] | [address] | Dx) | | | | [address] | | | | | | [phone] | | | +--------+ + + + [...] + + + | Blood Pressure | 116/67 | 09/16/2017 12:08 AM | | | | | PDT | | + + + + + | Pulse | 112 | 09/16/2017 12:08 AM | | | | | PDT | | + + + + + | Temperature | 36.6 C (97.9 F) | 09/16/2017 12:08 AM | | | | | PDT | | + + + + + | Respiratory Rate | 16 | 09/16/2017 12:08 AM | | | | | PDT | | + + + + + | Oxygen Saturation | 100% | 09/16/2017 12:08 AM | | | | | PDT | | + + + + + | Inhaled Oxygen | - | - | | | Concentration | | | | + + + + + | Weight | 54.4 kg (120 lb) | 09/16/2017 12:08 AM | | | | | PDT | | + + + + + | Height | 162.6 cm (5' 4") | 09/16/2017 12:08 AM | | | | | PDT | | + + + + + | Body Mass Index | 20.6 | 09/16/2017 12:08 AM | | | | | PDT | | + + + + + documented in this encounter Discharge Instructions AttachmentsThe following attachments cannot be sent through Care Everywhere.Foot Contusion (Cymraes)documented in this encounter Plan of Treatment + +------+--------+ + + | Name | Type | Priori | Associated Diagnoses | Date/Time | | | | ty | | | + +------+--------+ + + | ED INFORMATION | CELSO | Routin | | 09/16/2017 12:01 AM | | EXCHANGE | | e | | PDT | + +------+--------+ + + documented as of this encounter Procedures + +--------+ + + + | Procedure Name | Priori | Date/Time | Associated Diagnosis | Comments | | | ty | | | | + +--------+ + + + | XR FOOT LEFT 3 + VW | STAT | 09/16/2017 | | Results for this | | | | 12:38 AM | | procedure are in the | | | | PDT | | results section. | + +--------+ + + + documented in this encounter Results XR Foot Left 3 + Vw (09/16/2017 12:38 AM PDT) + + | Specimen | + + | | + + + + + | Narrative | Performed At | + + + | EXAM:XR FOOT LEFT 3 + VW CLINICAL HISTORY: Fell. Foot pain | [facility] | | COMPARISON: None. FINDINGS: 3 nonweightbearing views of the left | | | foot. Normal mineralization. No acute fracture. No current | | | dislocation. No bone erosion or destruction. The soft tissues are | | | unremarkable. Radiopaque density projects posterior to the distal | | | tibia and fibula on the lateral view. IMPRESSION - No acute | | | osseous abnormality or malalignment on these nonweightbearing | | | radiographs.. Radiopaque body may be on or within the patient. | | | Dictated and Signed by: Nikko Nickerson MD Electronically signed: | | | 09/16/2017 9:02 AM | | + + + + + | Procedure Note | + + | Hnoorio, Rad Results In - 09/16/2017 9:05 AM PDT EXAM:XR FOOT LEFT 3 + VW | | | | CLINICAL HISTORY: Fell. Foot pain | | | | COMPARISON: None. | | | | FINDINGS: 3 nonweightbearing views of the left foot. Normal mineralization. No | | acute fracture. No current dislocation. No bone erosion or destruction. The | | soft tissues are unremarkable. Radiopaque density projects posterior to the | | distal tibia and fibula on the lateral view. | | | | IMPRESSION - | | | | No acute osseous abnormality or malalignment on these nonweightbearing | | radiographs.. | | | | Radiopaque body may be on or within the patient. | | | | Dictated and Signed by: Nikko Nickerson MD | | Electronically signed: 09/16/2017 9:02 AM | + + + +---------+ + + | Performing | Address | City/State/Zipcode | Phone Number | | Organization | | | | + +---------+ + + | [facility] | | | | + +---------+ + + documented in this encounter Visit Diagnoses + + | Diagnosis | + + | Contusion of right foot, initial encounter - Primary | + + documented in this encounter Administered Medications + + + + +------+------+ | Medication Order | MAR | Action | Dose | Rate | Site | | | Action | Date | | | | + + + + +------+------+ | HYDROcodone-acetaminophen | Dispense | 09/17/19 | 1 tablet | | | | (NORCO) 5-325 mg per tablet (ER | to Home | 18 12:57 | | | | | Prepack) 1 tablet 1 tablet, | | AM PDT | | | | | Oral, EVERY 8 HOURS PRN, pain, | | | | | | | Starting 09/16/17 at 0045, [address] | | | | | | | [facility] [address], | | | | | | | | | | | | | + + + + +------+------+ +---+---+ | | | +---+---+ documented in this encounter
--- OUTSIDE RECORDS SUMMARY | ~2019-10-30 | XMS | Encounter Summary ---
Demographics + + + | Address | [address] | | | [place] [address] | + + + | Home Phone | | + + + | Preferred Language | Unknown | + + + | Marital Status | Single | + + + | Church Affiliation | 1013 | + + + | Race | Unknown | + + + | Ethnic Group | Unknown | + + + Author + + + | Author | [facility] | | | and Johnana | + + + | Organization | [facility] | | | [...] | | | | | [place] [address] | | + + + + + | Ab Bunch | ECON | Unknown | | + + + + + Care Team Providers + +------+ + | Care Stone Driller Helper Name | Role | Phone | + +------+ + | Pj Abdi MD | PCP | | + +------+ + Reason for Visit +--------+ + | Reason | Comments | +--------+ + | Other | briseida shah RM 5 | +--------+ + Encounter Details +--------+---------+ + + + | Date | Type | Department | Care Team | Description | +--------+---------+ + + + | 01/07/ | Office | [facility] | Magdalena Grimes, | Laceration of left | | 2017 | Visit | [facility]ARE [address] | Need updated | leg, initial | | | | [place] | address | encounter (Primary | | | | [address] | | Dx); Furuncle | | | | [phone] | | | +--------+---------+ + + + [...] + + + | Blood Pressure | 154/92 | 01/07/2017 5:59 PM | | | | | PDT | | + + + + + | Pulse | 111 | 01/07/2017 5:59 PM | | | | | PDT | | + + + + + | Temperature | 37 C (98.6 F) | 01/07/2017 5:59 PM | | | | | PDT | | + + + + + | Respiratory Rate | 20 | 01/07/2017 5:59 PM | | | | | PDT | | + + + + + | Oxygen Saturation | 100% | 01/07/2017 5:59 PM | | | | | PDT | | + + + + + | Inhaled Oxygen | - | - | | | Concentration | | | | + + + + + | Weight | 62.6 kg (138 lb) | 01/07/2017 5:59 PM | | | | | PDT | | + + + + + | Height | 165.1 cm (5' 5") | 01/07/2017 5:59 PM | | | | | PDT | | + + + + + | Body Mass Index | 22.96 | 01/07/2017 5:59 PM | | | | | PDT | | + + + + + documented in this encounter Patient Instructions Patient Instructions Magdalena Grimes MD - 01/07/2017 4:45 PM PDT Infected Laceration, Not Sutured Alaceration is a cut through the skin. The cuthas become infected.Because of the infe ction, and the amount of time that has passed since injury, the wound cannot be closed. It w ill heal best if left open and cleaned daily. It will seal over by growing new tissue from t he sides and the bottom of the wound. Antibiotics may be prescribed. A scar will probably re main after it has healed. Oral antibiotic medicine may be prescribed to treat the infection. Home care If antibiotics have been prescribed, take them exactly as directed. Do not stop taking t hem untilthey are gone or you are told to stop, even if you feel better. Follow the health care provider s instructions on how to care for the cut. Unless otherwise instructed, change the bandage twice a day for the first few days, unti l the drainage stops. Then change it once a day. Change the bandage if it becomes wet, stain ed with wound fluid, or dirty. Clean the wound daily: After removing the bandage, gently wash the area with soap and water. Use a wet cotton s wab to loosen and remove any blood or crust that forms. After cleaning, apply a thin layer of mola-dry-yfrqnbl antibiotic ointmentif advised. Reapply a fresh bandage. Follow the healthcare provider's instructions for keeping the wound dry. You may be give n restrictions on showering or tub baths. If the bandage gets wet, remove it. Gently pat the wound dry with a clean cloth, then re place the wet bandage with a dry one. Do not scratch, rub, or pick at the area. Wash your hands with soap and warm water before and after cleaning the wound or changing the bandage. Follow-up care Follow up with your healthcare provider as advised. It is important to follow up to ensure that the infection is improving. When to seek medical advice Call your healthcare provider right awayif any of these occur: Symptoms don't begin to improve or get worse Red streaks coming from the wound Increase in pus coming from the wound Fever of 100.4F (38C) or higher, or as directed by your healthcare provider Date Last Reviewed: 11/03/[id number] [employer]. [address] [place] [address], [place] [address]. All righ ts reserved. This information is not intended as a substitute for professional medical care. Always follow your healthcare professional's instructions. documented in this encounter Progress Notes Magdalena Grimes MD - 01/07/2017 4:45 PM PDTFormatting of this note might be different fro m the original. Subjective: Chief Complaint: Other (leg sores RM 5 ) History of Present Illness: Donna is a 21 y.o. female who comes in complaining of infected sores on her legs. She wa s in nursing home recently and cut herself shaving the back of the L leg. She then developed some sores on the front of the L leg. She picked them and now they are getting really red. She is worried she may have MRSA. Neither she nor BF have had hx of MRSA. 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 She would also like a test. Nexplanon but she has been tired and breasts tender. No menses for 2 years. No other complaints. Patient's medications, allergies, past medical, surgical, social and family histories were reviewed and updated as appropriate. 2 kids. Not working. ROS: see HPI Objective: BP (!) 154/92 | Pulse 111 | Temp 37 C (98.6 F) (Temporal) | Resp 20 | Ht 1.651 m (5 ' 5") | Wt 62.6 kg (138 lb) | SpO2 100% | BMI 22.96 kg/m General Appearance: Alert, cooperative, no distress, appears stated age Agitated wiggling constantly Poor dentition Pick swift chest arms legs face L Lower leg with 3 ulcers 6 mm across with surrounding erythema Post ankle with 5 cm laceration from razor up the back of the leg. Subacute. Not bleeding but erythema surrounding Neg Bhcg Assessment and Plans: 1. Laceration of left leg, initial encounter 2. Furuncle POCT Test, Urine, QUAL recent nursing home so concern for MRSA Clindamycin 300 mg po tid x 10 days, take with food I dressed the ankle wound with antibiotic ointment and a large Band-Aid. I gave her a few large Band-Aids antibiotic ointment. She should wash the lesions daily with soap and moderate put a little antibiotic ointment o n them. The one on the back of the legs she should cover with a Band-Aid. She should wear either long socks or pants so that she doesn't pick on the wounds. Take the antibiotics and follow up if she is not better. I told it'll take at least 2 week s for them to heal. Do not pick off the scabs. This note was dictated using [employer] voice recognition software. Occasional wrong- word or s ound-alike substitutions may have occurred due to the inherent limitations of voice recognit ion software. Please read the chart carefully and recognize, using context, where these subs titutions have occurred. documented in this en counter Plan of Treatment Not on filedocumented as of this encounter Procedures + +--------+ + + + | Procedure Name | Priori | Date/Time | Associated Diagnosis | Comments | | | ty | | | | + +--------+ + + + | POCT TEST, | Routin | 01/07/2017 | Furuncle | Results for this | | URINE, QUAL | e | 6:41 PM | | procedure are in the | | | | PDT | | results section. | + +--------+ + + + documented in this encounter Results POCT Test, Urine, QUAL (01/07/2017 6:41 PM PDT) + + + + + [...] | 1.010, 1.015, | | | | Bradley, | | 1.020, 1.025 | | | | POC | | | | | + + + + + + | Lot Number | [id number] | | | | + + + + + + | Expiration | 07/02/2018 | | | | | Date | | | | | + + + + + + + + | Specimen | + + | Urine | + + documented in this encounter Visit Diagnoses + + | Diagnosis | + + | Laceration of left leg, initial encounter - Primary | + + | Furuncle Carbuncle and furuncle of unspecified site | + + documented in this encounter
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
--- OUTSIDE RECORDS SUMMARY | ~2019-10-30 | XMS | Encounter Summary ---
Demographics + + + | Address | [address] | | | [place] [address] | + + + | Home Phone | | + + + | Preferred Language | Unknown | + + + | Marital Status | Single | + + + | Cheondoism Affiliation | 1013 | + + + [...] | | | | | [place] [address] | | + + + + + | Ab Julio C | ECON | Unknown | | + + + + + Care Team Providers + +------+ + | Care Sailboat Captain Name | Role | Phone | + [...] | +--------+ + + + + | 05/25/ | Emergency | [facility] | Suhail Constantino | Incontinence of | | 2017 | | MED CTR [facility] | MD Brian [address] | feces, unspecified | | | | CENTER [address] | [address] [place] | fecal incontinence | | | | [place], [place] | [place] [address] | type (Primary Dx); | | | | [address] | [phone] | Chronic midline low | | | | [phone] | | back pain, with | | | | | Rajiv Vieyra, | sciatica presence | | | | | [address] | unspecified | | | | | [facility] [place] | | | | | | [place] [address] | | | | | | [phone] | | | | | | | [...] + | Blood Pressure | 116/68 | 05/25/2017 7:51 PM | | | | | PST | | + + + + + | Pulse | 86 | 05/25/2017 7:51 PM | | | | | PST | | + + + + + | Temperature | 37.1 C (98.8 F) | 05/25/2017 6:33 PM | | | | | PST | | + + + + + | Respiratory Rate | 20 | 05/25/2017 7:51 PM | | | | | PST | | + + + + + | Oxygen Saturation | 100% | 05/25/2017 7:51 PM | | | | | PST | | + + + + + | Inhaled Oxygen | - | - | | | Concentration | | | | + + + + + | Weight | 59 kg (130 lb 1.1 | 05/25/2017 6:33 PM | | | | oz) | PST | | + + + + + | Height | 162.6 cm (5' 4") | 05/25/2017 6:33 PM | | | | | PST | | + + + + + | Body Mass Index | 22.33 | 05/25/2017 6:33 PM | | | | | PST | | + + + + + documented in this encounter Discharge Instructions Instructions Rajiv Vieyra MD - 05/25/2017Stay well-hydrated Continue your current medications Follow-up with your primary care provider AttachmentsThe following attachments cannot be sent through Care Everywhere.Back Pain (Acut e or Chronic) ([place])documented in this encounter Medications at Time of [...] tablet by | 30 | 0 | 05/09/20 | | | HYDROcodone-acetamin | mouth every 6 hours | tablet | | 17 | 8 | | ophen (NORCO) 5-325 [...] TWO TABLETS | 60 | 0 | 04/26/20 | | | hydrochloride | EVERY SIX HOURS | tablet | | 17 | 8 | | (ATARAX) 25 mg | NEEDED [...] Take 1 tablet by | 30 | 3 | 03/29/20 | | | (ZANAFLEX) 4 mg | mouth every 6 hours | tablet | | 17 | 8 | | tabletIndications: | as needed. | [...] Take 1 capsule by | 30 | 11 | 03/29/20 | | | (EFFEXOR XR) 150 mg | mouth Daily. | capsule | | 17 | 8 | | 24 hr | | | [...] INFORMATION | CELSO | Routin | | 05/25/2017 5:28 PM | | EXCHANGE | | e | | PST | + +------+--------+ + + documented as of this encounter Procedures + +--------+ + + + | Procedure Name | Priori | Date/Time | Associated Diagnosis | Comments | | | ty | | | | + +--------+ + + + | MRI LUMBAR SPINE WO | STAT | 05/25/2017 | | Results for this | | CONTRAST | | 9:32 PM | | procedure are in the | | | | PST | | results section. | + +--------+ + + + documented in this encounter Results MRI Lumbar Spine wo Contrast (05/25/2017 9:32 PM PST) + + | Specimen | + + | | + + + + + | Narrative | Performed At | + + + | MRI LUMBAR SPINE WITHOUT CONTRAST CLINICAL INFORMATION: | [facility] | | Incontinence and back pain. COMPARISON: MRI LUMBAR SPINE WO | | | CONTRAST dated 03/26/2017 PROCEDURE: Sagittal T2, axial T2, | | | sagittal T1, axial T1, sagittal STIR sequences. FINDINGS: | | | Transitional lumbosacral anatomy with lumbarization of S1 (6 lumbar | | | type vertebral levels). Large right S1 (or L6) transverse process | | | resulting in pseudoarticulation with the adjacent sacral ala. Large | | | left S1 transverse process without pseudoarticulation. The conus | | | medullaris terminates at L1. The cauda equina appears normal. | | | Normal bone marrow signal characteristics. Normal alignment of the | | | lumbar spine without evidence of fracture or listhesis.. T12/L1: | | | Mild disc height loss. Minimal disc bulge without significant spinal | | | canal or neural foraminal narrowing. L1/2: Unremarkable. | | | L2/3: Unremarkable. L3/4: Unremarkable. L4/5: Unremarkable. | | | L5/S1 (L5-L6): Disc desiccation with minimal disc height loss. | | | Mild broad-based central posterior disc protrusion with right | | | central annular fissure and mild bilateral facet arthrosis causing | | | minimal spinal canal narrowing and minimal bilateral neural foraminal | | | narrowing. The disc abuts the traversing right S1 nerve root in | | | the lateral recesses without evidence of impingement. S1-S2 | | | (previously labeled L6-S1): Bilateral facet arthrosis. No spinal | | | canal or neural foraminal narrowing. Partially imaged left | | | adnexal cystic structure measuring up to 4.5 cm. IMPRESSION- No | | | acute lumbar spine abnormality. Transitional lumbosacral anatomy | | | with pseudoarticulation between the right S1 (L6) transverse process | | | and adjacent sacral ala. Mild degenerative disc disease at L5-S1 | | | (L5-L6) as detailed above without significant change from prior. | | | Stable early degenerative disc disease also noted at T12-L1. | | | Left adnexal cystic structure measuring up to 4.4 cm, incompletely | | | imaged. Dictated and Signed by: Shahram Hernandez MD | | | Electronically signed: 05/26/2017 8:31 AM | | + + + + + | Procedure Note | + + | Honorio, Rad Results In - 05/26/2017 8:34 AM PST | | MRI LUMBAR SPINE WITHOUT CONTRAST | | | | CLINICAL INFORMATION: | | Incontinence and back pain. | | | | COMPARISON: | | MRI LUMBAR SPINE WO CONTRAST dated 03/26/2017 | | | | PROCEDURE: | | Sagittal T2, axial T2, sagittal T1, axial T1, sagittal STIR sequences. | | | | FINDINGS: | | Transitional lumbosacral anatomy with lumbarization of S1 (6 lumbar type | | vertebral levels). Large right S1 (or L6) transverse process resulting in | | pseudoarticulation with the adjacent sacral ala. Large left S1 transverse | | process without pseudoarticulation. | | | | The conus medullaris terminates at L1. The cauda equina appears normal. | | | | Normal bone marrow signal characteristics. Normal alignment of the lumbar spine | | without evidence of fracture or listhesis.. | | | | T12/L1: Mild disc height loss. Minimal disc bulge without significant spinal | | canal or neural foraminal narrowing. | | | | L1/2: Unremarkable. | | | | L2/3: Unremarkable. | | | | L3/4: Unremarkable. | | | | L4/5: Unremarkable. | | | | L5/S1 (L5-L6): Disc desiccation with minimal disc height loss. Mild broad-based | | central posterior disc protrusion with right central annular fissure and mild | | bilateral facet arthrosis causing minimal spinal canal narrowing and minimal | | bilateral neural foraminal narrowing. The disc abuts the traversing right S1 | | nerve root in the lateral recesses without evidence of impingement. | | | | S1-S2 (previously labeled L6-S1): Bilateral facet arthrosis. No spinal canal or | | neural foraminal narrowing. | | | | Partially imaged left adnexal cystic structure measuring up to 4.5 cm. | | | | IMPRESSION- | | No acute lumbar spine abnormality. | | | | Transitional lumbosacral anatomy with pseudoarticulation between the right S1 | | (L6) transverse process and adjacent sacral ala. | | | | Mild degenerative disc disease at L5-S1 (L5-L6) as detailed above without | | significant change from prior. Stable early degenerative disc disease also | | noted at T12-L1. | | | | Left adnexal cystic structure measuring up to 4.4 cm, incompletely imaged. | | | | Dictated and Signed by: Shahram Hernandez MD | | Electronically signed: 05/26/2017 8:31 AM | + + + +---------+ + + | Performing | Address | City/State/Zipcode | Phone Number | | Organization | | | | + +---------+ + + | [facility] | | | | + +---------+ + + documented in this encounter Visit Diagnoses + + | Diagnosis | + + | Incontinence of feces, unspecified fecal incontinence type - Primary | + + | Chronic midline low back pain, with sciatica presence unspecified | + + documented in this encounter Administered Medications + +--------+ +------+------+------+ | Medication Order | MAR | Action | Dose | Rate | Site | | | Action | Date | | | | + +--------+ +------+------+------+ | LORazepam (ATIVAN) tablet 2 mg | Given | 05/25/19 | 2 mg | | | | 2 mg, Oral, ONCE, 05/25/17 at | | 18 8:31 | | | | | 2030, For 1 dose | | PM PST | | | | + +--------+ +------+------+------+ +---+---+ | | | +---+---+ documented in this encounter
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
--- OUTSIDE RECORDS SUMMARY | ~2019-10-30 | XMS | Encounter Summary ---
Demographics + + + | Address | [address] | | | [place] [address] | + + + | Home Phone | | + + + | Preferred Language | Unknown | + + + | Marital Status | Single | + + + | Yarsanism Affiliation | 1013 | + + + | Race | Unknown | + + + | Ethnic Group | Unknown | + + + Author + + + | Author | [facility] | | | and Johnana | + + + | Organization | [facility] | | | and [...] | | | | | [place] [address] | | + + + + + | Ab Romykai | ECON | Unknown | | + + + + + Care Team Providers + +------+ + | Care Paramedic Supervisor Name | Role | Phone | + +------+ + | John Rhodes | PCP | | + +------+ + Reason for Visit +---------+ + | Reason | Comments | +---------+ + | Results | | +---------+ + Encounter Details +--------+ + + + + | Date | Type | Department | Care Team | Description | +--------+ + + + + | 07/15/ | Telephone | [facility] | Magdalena Grimes, | Results | | 2015 | | CARE [address] | Need updated | | | | | [place] | address | | | | | [address] | | | | | | [phone] | | | +--------+ + + + + Social History + + + +--------+------+ | Tobacco Use | Types | Packs/Day | Years | Date | | | | | Used | | + + + +--------+------+ | Current Every Day | Cigarettes | 0.75 | 12 | | | Smoker | [...]
--- OUTSIDE RECORDS SUMMARY | ~2019-10-30 | XMS | Encounter Summary ---
Demographics + + + | Address | [address] | | | [place] [address] | + + + | Home Phone | | + + + | Preferred Language | Unknown | + + + | Marital Status | Single | + + + | Confucianist Affiliation | 1013 | + + + [...] | | | | | [place] [address] | | + + + + + | Ab Romykia | ECON | Unknown | | + + + + + Care Team Providers + +------+ + | Care Delinquent Tax Collection Assistant Name | Role | Phone | + [...] Description | +--------+--------+ + + + | 09/08/ | Refill | [facility] | Pj Abdi, | Medication Refill | | 2018 | | [facility] | [address] | | | | | [address] | [place] | | | | | [place] | [address] | | | | | [address] | | | | | | [phone] | | | +--------+--------+ + + + [...]
--- OUTSIDE RECORDS SUMMARY | ~2019-10-30 | XMS | Encounter Summary ---
Demographics + + + | Address | [address] | | | [place] [address] | + + + | Home Phone | | + + + | Preferred Language | Unknown | + + + | Marital Status | Single | + + + | Adventism Affiliation | 1013 | + + + | Race | Unknown | + + + | Ethnic Group | Unknown | + + + Author + + + | Author | [facility] | | | and Johnana | + + + | Organization | [facility] | | | [...] | | | | | [place] [address] | | + + + + + | Ab Romykia | ECON | Unknown | | + + + + + Care Team Providers + +------+ + | Care Pacs Administrator Name | Role | Phone | + +------+ + PCP | Unavailable | + +------+ + Encounter Details +--------+ + + + + | Date | Type | Department | Care Team | Description | +--------+ + + + + | 03/25/ | Hospital | [facility] | Mike Dowd W, | | | 2009 | Encounter | [facility] | MD [address] [facility] | | | | | [facility] [address] | [place], [place] | | | | | [place], | [address] | | | | | [place] [address] | [phone] | | | | | [phone] | | | +--------+ + + + [...]
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
--- OUTSIDE RECORDS SUMMARY | ~2019-10-30 | XMS | Encounter Summary ---
Demographics + + + | Address | [address] | | | [place] [address] | + + + | Home Phone | | + + + | Preferred Language | Unknown | + + + | Marital Status | Single | + + + | Druze Affiliation | 1013 | + + + | Race | Unknown | + + + | Ethnic Group | Unknown | + + + Author + + + | Author | [facility] | | | and Johnana | + + + | Organization | [facility] | | | [...] | | | | | [place] [address] | | + + + + + | Ab Romykia | ECON | Unknown | | + + + + + Care Team Providers + +------+ + | Care Plastics Nurse Name | Role | Phone | + +------+ + | Pj Abdi MD | PCP | | + +------+ + Reason for Visit + + + | Reason | Comments | + + + | Back Pain | Pain medication is not helping with back pain relief. | + + + Encounter Details +--------+ + + + + | Date | Type | Department | Care Team | Description | +--------+ + + + + | 01/26/ | Telephone | [facility] | Pj Abdi, | Back Pain (Pain | | 2017 | | MEDIC[facility] [place] | [address] | medication is not | | | | [address] | [place] | helping with back | | | | [place] | [address] | pain relief.) | | | | [address] | | | | | | [phone] | | | +--------+ + + + [...]
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
--- OUTSIDE RECORDS SUMMARY | ~2019-10-30 | XMS | Encounter Summary ---
Demographics + + + | Address | [address] | | | [place] [address] | + + + | Home Phone | | + + + | Preferred Language | Unknown | + + + | Marital Status | Single | + + + | Taoist Affiliation | 1013 | + + + [...] | | | | | [place] [address] | | + + + + + | Ab [place] | ECON | Unknown | | + + + + + Care Team Providers + +------+ + | Care Roll Up Helper Name | Role | Phone | + +------+ + | No, Unknownpcp | PCP | | + +------+ + Encounter Details +--------+ + + + + | Date | Type | Department | Care Team | Description | +--------+ + + + + | 06/26/ | Imaging | [facility] [place] [facility] | Jill Zhang | Strain of left | | 2020 | Exam | [address] | Karla, [employer] [address] | shoulder, subsequent | | | | [address] [place] | [address] | encounter; Strain | | | | [place] [address] | [place] | of tendon of right | | | | [phone] | [id number] | wrist | | | | | | | [...] + +--------+ + + + | XR SHOULDER LEFT 2 + | Routin | 06/26/2019 | Strain of left | Results for this | | VW | e | 11:56 AM | shoulder, subsequent | procedure are in the | | | | PST | encounter | results section. | + +--------+ + + + | XR WRIST RIGHT 2 VW | Routin | 06/26/2019 | Strain of tendon | Results for this | | | e | 11:56 AM | of right wrist | procedure are in the | | | | PST | | results section. | + +--------+ + + + documented in this encounter Results XR Wrist Right 2 Vw (06/26/2019 11:56 AM PST) + + | Specimen | + + | | + + + + + | Impressions | Performed At | + + + | 1. NO RADIOGRAPHIC EVIDENCE OF INJURY. Dictated and Signed | [facility] | | by: Brad Cline MD Electronically signed: 06/26/2019 2:21 PM | | + + + + + + | Narrative | Performed At | + + + | TWO VIEWS RIGHT WRIST 06/26/2019 11:55 AM CLINICAL HISTORY: | [facility] | | right wrist strain COMPARISON: RADIOGRAPHS 2014 | | | FINDINGS: The bones are well-mineralized and well aligned. No | | | fracture or subluxation is evident. Joint spaces are maintained. | | | Soft tissues are unremarkable. | | + + + + + | Procedure Note | + + | Honorio, Rad Results In - 06/26/2019 2:24 PM PST TWO VIEWS RIGHT WRIST 06/26/2019 11:55 | | AMCLINICAL HISTORY: right wrist strainCOMPARISON: RADIOGRAPHS 2014FINDINGS: | | The bones are well-mineralized and well aligned. No fracture orsubluxation is evident. | | Joint spaces are maintained. Soft tissues areunremarkable.IMPRESSION: 1. NO | | RADIOGRAPHIC EVIDENCE OF INJURY.Dictated and Signed by: Brad Cline MD Electronically | | signed: 06/26/2019 2:21 PM | |FINDINGS: The bones are well-mineralized and well aligned. No fracture or | |subluxation is evident. Joint spaces are maintained. Soft tissues are | |unremarkable. | | | |IMPRESSION: | |1. NO RADIOGRAPHIC EVIDENCE OF INJURY. | | | |Dictated and Signed by: Brad Cline MD | | Electronically signed: 06/26/2019 2:21 PM | + + + +---------+ + + | Performing | Address | City/State/Zipcode | Phone Number | | Organization | | | | + +---------+ + + | [facility] | | | | + +---------+ + + XR Shoulder Left 2 + Vw (06/26/2019 11:56 AM PST) + + | Specimen | + + | | + + + + + | Impressions | Performed At | + + + | 1. MILD WIDENING OF THE ACROMIOCLAVICULAR JOINT, CONSISTENT WITH | [facility] | | GRADE 2 SEPARATION. Dictated and Signed by: Brad Cline MD | | | Electronically signed: 06/26/2019 2:20 PM | | + + + + + + | Narrative | Performed At | + + + | THREE VIEWS LEFT SHOULDER 06/26/2019 11:55 AM CLINICAL HISTORY: | [facility] | | left shoulder strain COMPARISON: None available FINDINGS: The | | | bones are well-mineralized. No fracture is evident. The | | | acromioclavicular joint is mildly widened. Glenohumeral joint is | | | maintained. Imaged chest and soft tissues are unremarkable. | | + + + + + | Procedure Note | + + | Honorio, Rad Results In - 06/26/2019 2:23 PM PST THREE VIEWS LEFT SHOULDER 06/26/2019 | | 11:55 AMCLINICAL HISTORY: left shoulder strainCOMPARISON: None availableFINDINGS: The | | bones are well-mineralized. No fracture is evident. Theacromioclavicular joint is | | mildly widened. Glenohumeral joint is maintained. Imaged chest and soft tissues are | | unremarkable.IMPRESSION: 1. MILD WIDENING OF THE ACROMIOCLAVICULAR JOINT, CONSISTENT | | WITH GRADE 2SEPARATION.Dictated and Signed by: Brad Cline MD Electronically signed: | | 06/26/2019 2:20 PM | |acromioclavicular joint is mildly widened. Glenohumeral joint is maintained. | |Imaged chest and soft tissues are unremarkable. | | | |IMPRESSION: | |1. MILD WIDENING OF THE ACROMIOCLAVICULAR JOINT, CONSISTENT WITH GRADE 2 | |SEPARATION. | | | |Dictated and Signed by: Brad Cline MD | | Electronically signed: 06/26/2019 2:20 PM | + + + +---------+ + + | Performing | Address | City/State/Zipcode | Phone Number | | Organization | | | | + +---------+ + + | [facility] | | | | + +---------+ + + documented in this encounter Visit Diagnoses + + | Diagnosis | + + | Strain of left shoulder, subsequent encounter | + + | Strain of tendon of right wrist | + + documented in this encounter"
--- OUTSIDE RECORDS SUMMARY | ~2019-10-30 | XMS | Encounter Summary ---
Demographics + + + | Address | [address] | | | [place] [address] | + + + | Home Phone | | + + + | Preferred Language | Unknown | + + + | Marital Status | Single | + + + | Spiritism Affiliation | 1013 | + + + | Race | Unknown | + + + | Ethnic Group | Unknown | + + + Author + + + | Author | [facility] | | | and Johnana | + + + | Organization | [facility] | | | and [...] | | | | | [place] [address] | | + + + + + | Ab Julio C | ECON | Unknown | | + + + + + Care Team Providers + +------+ + | Care Can Conveyor Feeder Name | Role | Phone | + +------+ + | Pj Abdi MD | PCP | | + +------+ + Reason for Visit + + + | Reason | Comments | + + + | Neck Pain | | + + + | Back Pain | | + + + Encounter Details +--------+ + + + + | Date | Type | Department | Care Team | Description | +--------+ + + + + | 05/07/ | Emergency | [facility] | Andres Harding MD | Strain of lumbar | | 2019 | | [facility] | [address] | region, initial | | | | CENTER [address] | [place] | encounter (Primary | | | | [place] | [address] | Dx) | | | | [address] | | | | | | [phone] | | | +--------+ + + + [...] + + + | Blood Pressure | 99/52 | 05/07/2019 10:30 PM | | | | | PST | | + + + + + | Pulse | 80 | 05/07/2019 10:30 PM | | | | | PST | | + + + + + | Temperature | 36.6 C (97.9 F) | 05/07/2019 7:34 PM | | | | | PST | | + + + + + | Respiratory Rate | 18 | 05/07/2019 7:34 PM | | | | | PST | | + + + + + | Oxygen Saturation | 100% | 05/07/2019 10:30 PM | | | | | PST | | + + + + + | Inhaled Oxygen | - | - | | | Concentration | | | | + + + + + | Weight | 59 kg (130 lb) | 05/07/2019 7:34 PM | | | | | PST | | + + + + + | Height | 162.6 cm (5' 4") | 05/07/2019 7:34 PM | | | | | PST | | + + + + + | Body Mass Index | 22.31 | 05/07/2019 7:34 PM | | | | | PST | | + + + + + documented in this encounter Discharge Instructions Instructions Andres Harding MD - 05/07/2019Follow-up with your primary care provider. AttachmentsThe following attachments cannot be sent through Care Everywhere.Back Sprain/Str ain (Bots[place]an)documented in this encounter Medications at Time of Discharge + + + +---------+ + + | Medication | Sig | Dispensed | Refills | Start | End Date | | | | | | Date | | + + + +---------+ + + | gabapentin | TAKE TWO CAPSULES | 180 | 5 | 12/27/19 | | | (NEURONTIN) 300 mg | THREE TIMES A DAY | capsule | | 19 | | | capsuleIndications: | | | | | | | Fibromyalgia | | | | | | + + + +---------+ + + | naproxen | TAKE ONE TABLET | 60 | 5 | 12/27/19 | | | (NAPROSYN) 500 mg | TWICE A DAY WITH | tablet | | 19 | | | tabletIndications: | BREAKFAST AND DINNER | | | | | | Patellofemoral pain | | | | | | | syndrome of both | | | | | | | knees | | | | | | + + + +---------+ + + | ondansetron | TAKE ONE TABLET | 45 | 3 | 09/27/19 | | | (ZOFRAN) 4 mg | EVERY 8 HOURS | tablet | | 19 | | | tabletIndications: | NEEDED FOR NAUSEA | | | | | | PONV (postoperative | | | | | | | nausea and vomiting) | | | | | | + + + +---------+ + + | SUBOXONE 8-2 MG SL | 10 mg Daily. | | 0 | 09/22/19 | | | film | | | | 19 | | + + + +---------+ + + | busPIRone (BUSPAR) | TAKE 1 TABLET BY | 90 | 5 | 12/27/19 | | | 5 mg | MOUTH THREE TIMES | tablet | | 19 | 0 | | tabletIndications: | DAILY NEEDED | | | | | | Generalized anxiety | (ANXIETY). | | | | | | disorder | | | | | | + + + +---------+ + + | ibuprofen (ADVIL, | Take 400 mg by mouth | | 0 | | | | MOTRIN) 200 mg | every 6 hours as | | | | 0 | | tablet | needed for Pain. | | | | | + + + +---------+ + + | mirtazapine | TAKE 1 TABLET BY | 30 | 5 | 02/17/20 | | | (REMERON) 7.5 MG | MOUTH NIGHTLY. | tablet | | 19 | 0 | | tablet | | | | | | + + + +---------+ + + documented as of this encounter Plan of Treatment + +------+--------+ + + | Name | Type | Priori | Associated Diagnoses | Date/Time | | | | ty | | | + +------+--------+ + + | ED INFORMATION | CELSO | Routin | | 05/07/2019 7:27 PM | | EXCHANGE | | e | | PST | + +------+--------+ + + documented as of this encounter Procedures + +--------+ + + + | Procedure Name | Priori | Date/Time | Associated Diagnosis | Comments | | | ty | | | | + +--------+ + + + | MRI LUMBAR SPINE WO | STAT | 05/07/2019 | | Results for this | | CONTRAST | | 9:38 PM | | procedure are in the | | | | PST | | results section. | + +--------+ + + + | URINALYSIS WITH | STAT | 05/07/2019 | | Results for this | | MICROSCOPIC WITH | | 8:42 PM | | procedure are in the | | CULTURE IF INDICATED | | PST | | results section. | + +--------+ + + + | DRUGS OF ABUSE, | STAT | 05/07/2019 | | Results for this | | SCREEN, URINE | | 8:42 PM | | procedure are in the | | | | PST | | results section. | + +--------+ + + + | ED INFORMATION | Routin | 05/07/2019 | | | | EXCHANGE | e | 7:27 PM | | | | | | PST | | | + +--------+ + + + +---+--------+ | | | | | Proced | | | ure | | | Note - | | | Honorio, | | | Lab In | | | | | | Hlseve | | | n - | | | 12/16/ | | | 2019 | | | 7:28 | | | PM PST | | | | | | Format | | | ting | | | of | | | this | | | note | | | might | | | be | | | differ | | | ent | | | from | | | the | | | origin | | | al.COL | | | LECTIV | | | E?NOTI | | | FICATI | | | ON?12/ | | | 16/201 | | | 9 | | | 19:26? | | | SHAH | | | LSH, | | | SABRIN | | | A | | | K?MRN: | | | | | | [id number] | | | [id number] | | | riteri | | | a Met | | | | | | PDMPSe | | | curity | | | and | | | Safety | | | No | | | [...] | | | maranda | | | for | | | this | | | patien | | | t. | | | Please | | | check | | | your | | | facili | | | ty's | | | medica | | | l | | | record | | | s | | | system | | | .Presc | | | riptio | | | n Drug | | | | | | Report | | | (12 | | | Mo.)Rx | | | | | | Detail | | | sFill | | | Date | | | Drug | | | Descri | | | ption | | | Qty. | | | Prescr | | | iber | | | CS MED | | | | | | 2019-1 | | | 2-12 | | | SUBOXO | | | NE 8 | | | MG-2 | | | MG SL | | | FILM | | | 23 | | | JEFFRE | | | Y | | | GRAWE | | | 3 368 | | | 2019-1 | | | 1-29 | | | SUBOXO | | | NE 8 | | | MG-2 | | | MG SL | | | FILM | | | 21 | | | JEFFRE | | | Y | | | GRAWE | | | 3 360 | | | 2019-1 | | | 1-15 | | | SUBOXO | | | NE 8 | | | MG-2 | | | MG SL | | | FILM | | | 21 | | | JEFFRE | | | Y | | | GRAWE | | | 3 360 | | | 2019- | | | 0-31 | | | SUBOXO | | | NE 8 | | | MG-2 | | | MG SL | | | FILM | | | 21 | | | JEFFRE | | | Y | | | GRAWE | | | 3 360 | | | 2019- | | | 0-18 | | | SUBOXO | | | NE 8 | | | MG-2 | | | MG SL | | | FILM | | | 21 | | | JEFFRE | | | Y | | | GRAWE | | | 3 360 | | | 2019-1 | | | 0-03 | | | SUBOXO | | | NE 8 | | | MG-2 | | | MG SL | | | FILM | | | 21 | | | JEFFRE | | | Y | | | GRAWE | | | 3 360 | | | 2019-0 | | | 9-20 | | | SUBOXO | | | NE 8 | | | MG-2 | | | MG SL | | | FILM | | | 21 | | | JEFFRE | | | Y | | | GRAWE | | | 3 360 | | | 2019-0 | | | 9-05 | | | SUBOXO | | | NE 8 | | | MG-2 | | | MG SL | | | FILM | | | 21 | | | JEFFRE | | | Y | | | GRAWE | | | 3 360 | | | 2019-0 | | | 8-22 | | | SUBOXO | | | NE 8 | | | MG-2 | | | MG SL | | | FILM | | | 21 | | | SABRINA | | | GRAVES | | | 3 360 | | | | | | 2019-0 | | | 8-08 | | | SUBOXO | | | NE 8 | | | MG-2 | | | MG SL | | | FILM | | | 21 | | | SABRINA | | | GRAVES | | | 3 360 | | | | | | 2019-0 | | | 7-25 | | | SUBOXO | | | NE 8 | | | MG-2 | | | MG SL | | | FILM | | | 21 | | | SABRINA | | | GRAVES | | | 3 360 | | | | | | 2019-0 | | | 7-11 | | | SUBOXO | | | NE 8 | | | MG-2 | | | MG SL | | | FILM | | | 21 | | | SABRINA | | | GRAVES | | | 3 360 | | | | | | 2019-0 | | | 6-28 | | | SUBOXO | | | NE 8 | | | MG-2 | | | MG SL | | | FILM | | | 21 | | | SABRINA | | | GRAVES | | | 3 360 | | | | | | 2019-0 | | | 6-13 | | | SUBOXO | | | NE 8 | | | MG-2 | | | MG SL | | | FILM | | | 21 | | | SABRINA | | | GRAVES | | | 3 360 | | | | | | 2019-0 | | | 5-30 | | | SUBOXO | | | NE 8 | | | MG-2 | | | MG SL | | | FILM | | | 21 | | | SABRINA | | | GRAVES | | | 3 360 | | | | | | 2019-0 | | | 5-16 | | | SUBOXO | | | NE 8 | | | MG-2 | | | MG SL | | | FILM | | | 21 | | | SABRINA | | | GRAVES | | | 3 360 | | | | | | 2019-0 | | | 5-02 | | | SUBOXO | | | NE 8 | | | MG-2 | | | MG SL | | | FILM | | | 21 | | | SABRINA | | | GRAVES | | | 3 360 | | | | | | 2019-0 | | | 4-18 | | | SUBOXO | | | NE 8 | | | MG-2 | | | MG SL | | | FILM | | | 21 | | | SABRINA | | | GRAVES | | | 3 360 | | | | | | 2019-0 | | | 4-04 | | | SUBOXO | | | NE 8 | | | MG-2 | | | MG SL | | | FILM | | | 21 | | | SABRINA | | | GRAVES | | | 3 360 | | | | | | 2019-0 | | | 3-21 | | | SUBOXO | | | NE 8 | | | MG-2 | | | MG SL | | | FILM | | | 21 | | | SABRINA | | | GRAVES | | | 3 360 | | | | | | Showin | | | g 20 | | | of the | | | 26 | | | most-r | | | ecent | | | prescr | | | iption | | | s Rx | | | [place] | | | yMetri | | | c | | | Count | | | CS | | | II-V | | | Rx 26 | | | CS-II | | | Rx 0 | | | Quanti | | | ty | | | Dispen | | | sed | | | 552 | | | Unique | | | | | | Prescr | | | ibers | | | 2 | | | Unique | | | | | | Pharma | | | cies 2 | | | | | | Benzos | | | 0 | | | Opioid | | | s 26 | | | Long | | | Acting | | | | | | Opioid | | | s 0 | | | E.D. | | | [...] | | | Center | | | 1 0 | | | Total | | | 1 0 | | | Note: | | [...] Recent | | | | | | Emerge | | | ncy | | | Depart | | | ment | | | Visit | | | [facility] | | | yDate | | | Facili | | | ty | | | City | | | State | | | Type | | | Diagno | | | ses or | | | Chief | | | | | | Compla | | | int | | | Dec | | | 16, | | | 2019 | | | Provid | | | ence | | | [facility] | [place] | | | [place] | | | Emerge | | | ncy | | | neck | | | and | | | back | | | pain | | | Nov 4, | | | 2019 | | | [facility] | | | [place] | | | Urgent | | | Care | | | [place] | | | [place] | | | Urgent | | | Care | | | | | | Lacera | | | tion | | | | | | Disrup | | | tion | | | of | | | rate and cost analyst | | | al | | | operat | | | ion | | | (surgi | | | adriana) | | | wound, | | | NEC, | | | init | | | Dec | | | 17, | | | 2018 | | | [facility] | | | [place] | | | Urgent | | | Care | | | [place] | | | [place] | | | Urgent | | | Care | | | | | | Rash | | | | | | Follic | | | ular | | | disord | | | er, | | | unspec | | | ified | | | | | | Viral | | | infect | | | ion, | | | unspec | | | ified | | | | | | Recent | | | | | | Inpati | | | ent | | | Visit | | | [facility] | | | yNo | | | record | | | ed | | | inpati | | | ent | | | visits | | | . Care | | | | | | TeamPr | | | ovider | | | | | | Specia | | | lty | | | Phone | | | Fax | | | Servic | | | e | | | Dates | | | ABDI | | | , | | | PJ | | | , MD | | | Family | | | | | | Medici | | | ne | | | Curren | | | [...] (509) | | | | | | [phone] | | | 20 | | | (509) | | | [phone] | | | 82 | | | Curren | | | t | | | WONG | | | BRODIE B | | | | | | Primar | | | y Care | | | | | | (509) | | | [phone] | | | 43 Oct | | | 1, | | | 2016 - | | | | | | Curren | | | t | | | Collec | | | tive | | | Portal | | | This | | | patien | | | [...] | | | //secu | | | re.col | | | lectiv | | | emedic | | | al.com | | | /notif | | | [id number] | | | [id number] | | | [id number] | | | [id number] | | | [id number] | | | [id number] | | | 44 | | | PLEASE | | | NOTE: | | | 1. | | | Any | | | care | | | recomm | | | endati | | | ons | | | and | | | other | | | clinic | | | al | | | inform | | | ation | | | are | | | provid | | | ed as | | | guidel | | | maranda | | | or for | | | | | | histor | | | ical | | | purpos | | | es | | | only, | | | and | | | provid | | | ers | | | should | | | | | | exerci | | | se | | | their | | | own | | | clinic | | | al | | | judgme | | | nt | | | when | | | provid | | | ing | | | care. | | | 2. | | | You | | | may | | | only | | | use | | | this | | | inform | | | ation | | | for | | | purpos | | | es of | | | treatm | | | ent, | | | paymen | | | t or | | | health | | | care | | | operat | | | ions | | | activi | | | ties, | | | and | | | subjec | | | t to | | | the | | | limita | | | tions | | | of | | | applic | | | able | | | Collec | | | tive | | | Polici | | | es. | | | 3. | | | You | | | should | | | | | | consul | | | t | | | direct | | | ly | | | with | | | the | | | organi | | | zation | | | that | | | provid | | | ed a | | | care | | | guidel | | | ine or | | | other | | | | | | clinic | | | al | | | histor | | | y with | | | any | | | questi | | | ons | | | about | | | additi | | | onal | | | inform | | | ation | | | or | | | accura | | | cy or | | | comple | | | teness | | | of | | | inform | | | ation | | | provid | | | ed.? | | | 2019 | | | Collec | | | tive | | | Medica | | | l | | | Techno | | | logies | | | , Inc[employer] | | | - | | | [email or web address] | | | llecti | | | vemedi | | | [email or web address] | | | m | +---+--------+ documented in this encounter Results MRI Lumbar Spine wo Contrast (05/07/2019 9:38 PM PST) + + | Specimen | + + | | + + + + + | Impressions | Performed At | + + + | 1. TRANSITIONAL LUMBOSACRAL ANATOMY DESCRIBED. 2. SIMILAR | [facility] | | DEGENERATIVE DISC DISEASE AND MINIMAL STENOSIS AT L5-S1 WITHOUT | | | NERVE ROOT ENCROACHMENT. 3. MILD DEXTROSCOLIOSIS WITH EARLY | | | LOWER LUMBAR FACET HYPERTROPHY. Preliminary results of this study | | | were [facility] the [facility] staff [facility] on | | | May 07, 2019 at 2154 hours. Dictated and Signed by: Brad | | | MD Son Electronically signed: 05/08/2019 6:24 AM | | + + + + + + | Narrative | Performed At | + + + | UNENHANCED MRI LUMBAR SPINE 05/07/2019 8:51 PM CLINICAL HISTORY: | [facility] | | Back pain, cauda equina syndrome suspected Lumbar back pain, urinary | | | incontinence, perineal paresthesias COMPARISON: CT [facility] | | | December 2017, MRI May 2017 and more remote imaging TECHNIQUE: | | | The following 3T MR sequences of the lumbar spine were obtained: 1. | | | Axial and sagittal T1. 2. Axial, sagittal, and coronal T2. 3. | | | Sagittal STIR. FINDINGS: Five non rib-bearing, lumbar type | | | vertebrae are suggested on the coronal sequence. A transitional | | | vertebra is again noted as well, demonstrating pseudoarthrosis of its | | | right transverse process with the upper sacrum, and is designated | | | S1. Mild rightward lumbar curvature persists. Vertebral height and | | | alignment are otherwise maintained without evident fracture, | | | spondylolysis or spondylolisthesis. The conus medullaris is | | | unremarkable, terminating at L1. Imaged intra-abdominal and | | | paraspinal structures are unremarkable. No significant disc | | | pathology or stenosis is evident at T11-12, T12-L1, L1-2 or L2-3 on | | | provided sagittal images through the region. L3-4: Similar minimal | | | posterior disc bulge without stenosis. L4-5: Similar minimal | | | posterior disc bulge without stenosis. L5-S1: Disc desiccation, | | | annular tear and generalized posterior disc bulge persist, minimally | | | narrowing the central canal and foramina to a similar degree in | | | combination with early ligamentous and facet hypertrophy. No nerve | | | root encroachment is evident. No stenosis is evident at the | | | transitional S1-2 level. | | + + + + + | Procedure Note | + + | Honorio, Rad Results In - 05/08/2019 6:28 AM PST UNENHANCED MRI LUMBAR SPINE 05/07/2019 | | 8:51 PMCLINICAL HISTORY: Back pain, cauda equina syndrome suspectedLumbar back pain, | | urinary incontinence, perineal paresthesias COMPARISON: CT [facility] December 2017, MRI | | May 2017 and more remote imagingTECHNIQUE: The following 3T MR sequences of the | | lumbar spine were obtained:1. Axial and sagittal T1.2. Axial, sagittal, and coronal | | T2.3. Sagittal STIR.FINDINGS: Five non rib-bearing, lumbar type vertebrae are suggested | | on thecoronal sequence. A transitional vertebra is again noted as well, | | demonstratingpseudoarthrosis of its right transverse process with the upper sacrum, and | | isdesignated S1. Mild rightward lumbar curvature persists. Vertebral height | | andalignment are otherwise maintained without evident fracture, spondylolysis | | orspondylolisthesis. The conus medullaris is unremarkable, terminating at L1. Imaged | | intra-abdominal and paraspinal structures are unremarkable.No significant disc pathology | | or stenosis is evident at T11-12, T12-L1, L1-2 orL2-3 on provided sagittal images | | through the region.L3-4: Similar minimal posterior disc bulge without stenosis.L4-5: | | Similar minimal posterior disc bulge without stenosis.L5-S1: Disc desiccation, annular | | tear and generalized posterior disc bulgepersist, minimally narrowing the central canal | | and foramina to a similar degreein combination with early ligamentous and facet | | hypertrophy. No nerve rootencroachment is evident.No stenosis is evident at the | | transitional S1-2 level.IMPRESSION: 1. TRANSITIONAL LUMBOSACRAL ANATOMY DESCRIBED.2. | | SIMILAR DEGENERATIVE DISC DISEASE AND MINIMAL STENOSIS AT L5-S1 WITHOUTNERVE ROOT | | ENCROACHMENT.3. MILD DEXTROSCOLIOSIS WITH EARLY LOWER LUMBAR FACET | | HYPERTROPHY.Preliminary results of this study were reported to the ER staff by the | | [facility] radiologist on May 07, 2019 at 2154 hours.Dictated and Signed by: | | Brad Cline MD Electronically signed: 05/08/2019 6:24 AM | | | |L4-5: Similar minimal posterior disc bulge without stenosis. | | | |L5-S1: Disc desiccation, annular tear and generalized posterior disc bulge | |persist, minimally narrowing the central canal and foramina to a similar degree | |in combination with early ligamentous and facet hypertrophy. No nerve root | |encroachment is evident. | | | |No stenosis is evident at the transitional S1-2 level. | | | |IMPRESSION: | |1. TRANSITIONAL LUMBOSACRAL ANATOMY DESCRIBED. | | | |2. SIMILAR DEGENERATIVE DISC DISEASE AND MINIMAL STENOSIS AT L5-S1 WITHOUT | |NERVE ROOT ENCROACHMENT. | | | |3. MILD DEXTROSCOLIOSIS WITH EARLY LOWER LUMBAR FACET HYPERTROPHY. | | | |Preliminary results of this study were reported to the ER staff by the [facility] |[facility] radiologist on May 07, 2019 at 2154 hours. | | | |Dictated and Signed by: Brad Cline MD | | Electronically signed: 05/08/2019 6:24 AM | + + + +---------+ + + | Performing | Address | City/State[facility] | Phone Number | | Organization | | | | + +---------+ + + | [facility] | | | | + +---------+ + + Drugs of Abuse, Screen, Urine (05/07/2019 8:42 PM PST) + + + + + + | Component | Value | Ref Range | Performed | Pathologist | | | | | At | Signature | + + + + + + | Amphetamine | Negative | Negative | [facility] | | | Screen, | | | [facility] | | | Urine | | | MEDICAL | | | | | | CENTER - | | | | | | LABORATORY | | + + + + + + | Barbiturate | Negative | Negative | [facility] | | | s Screen, | | | [facility] | | | Urine | | | MEDICAL | | | | | | CENTER - | | | | | | LABORATORY | | + + + + + + | Benzodiazep | Negative | Negative | [facility] | | | maranda | | | [facility] | | | Screen, | | | MEDICAL | | | Urine | | | CENTER - | | | | | | LABORATORY | | + + + + + + | Cannabinoid | Negative | Negative | [facility] | | | s Screen, | | | [facility] | | | Urine | | | MEDICAL | | | | | | CENTER - | | | | | | LABORATORY | | + + + + + + | Cocaine | Negative | Negative | [facility] | | | Screen, | | | [facility] | | | Urine | | | MEDICAL | | | | | | CENTER - | | | | | | LABORATORY | | + + + + + + | Methadone | Negative | Negative | [facility] | | | Screen, | | | [facility] | | | Urine | | | MEDICAL | | | | | | CENTER - | | | | | | LABORATORY | | + + + + + + | Opiates | Negative | Negative | [facility] | | | Screen, | | | [facility] | | [...] [address] | [place] | [phone] | | [facility] | | [address] | | | - LABORATORY | | | | + + + + + Urinalysis with Microscopic with Culture if Indicated (05/07/2019 8:42 PM PST) + + + + + + | Component | Value | Ref Range | Performed | Pathologist | | | | | At | Signature | + + + + + + | Color, | Yellow | Light Yellow, | [facility] | | | Urine | | Yellow, Straw | [facility] | | | | | | MEDICAL | | | | | | CENTER - | | | | | | LABORATORY | | + + + + + + | Clarity | Hazy (A) | Clear | [facility] | | | | | | [facility] | | | | | | MEDICAL | | | | | | CENTER - | | | | | | LABORATORY | | + + + + + + | pH, Urine | 5.0 | 5.0 - 8.0 | [facility] | | | | | | [facility] | | | | | | MEDICAL | | | | | | CENTER - | | | | | | LABORATORY | | + + + + + + | Specific | 1.004 | 1.001 - 1.030 | [facility] | | | [place], | | | [facility] | | [...] | | Esterase, | | | [facility] | | | Urine | | | MEDICAL | | | | | | CENTER - | | | | | | LABORATORY | | + + + + + + | Urobilinoge | Negative | 0.2 mg/dL, 1.0 | [facility] | | | n, Urine | | mg/dL, Negative | [facility] | | | | [...] | Comment | Indicated | | [facility] | | | [...] ST. | [address] | [place], [place] | [phone] | | [facility] | | [address] | | | - LABORATORY | | | | + + + + + documented in this encounter Visit Diagnoses + + | Diagnosis | + + | Strain of lumbar region, initial encounter - Primary | + + documented in this encounter Administered Medications + +--------+ +------+------+ + | Medication Order | MAR | Action | Dose | Rate | Site | | | Action | Date | | | | + +--------+ +------+------+ + | HYDROmorphone (DILAUDID) | Given | 05/07/20 | 1 mg | | Deltoid- | | injection 1 mg 1 mg, | | 19 9:15 | | | Right | | Intramuscular, ONCE, 05/07/19 | | PM PST | | | | | at 2110, For 1 dose | | | | | | + +--------+ +------+------+ + +---+---+ | | | +---+---+ + +-------+ +------+---+ + | LORazepam (ATIVAN) injection 1 | Given | 05/07/20 | 1 mg | | Deltoid- | | mg 1 mg, Intramuscular, ONCE, | | 19 9:15 | | | Left | | 05/07/19 at 2110, For 1 dose | | PM PST | | | | + +-------+ +------+---+ + +---+---+ | | | +---+---+ + +-------+ +------+---+ + | LORazepam (ATIVAN) injection 2 | Given | 05/07/20 | 2 mg | | Deltoid- | | mg 2 mg, Intramuscular, ONCE, | | 19 8:39 | | | Right | | 05/07/19 at 2030, For 1 dose, | | PM PST | | | | | Before MRI, | | | | | | + +-------+ +------+---+ + +---+---+ | | | +---+---+ documented in this encounter
--- OUTSIDE RECORDS SUMMARY | ~2019-10-30 | XMS | Encounter Summary ---
Demographics + + + | Address | [address] | | | [place] [address] | + + + | Home Phone | | + + + | Preferred Language | Unknown | + + + | Marital Status | Single | + + + | Evangelical Affiliation | 1013 | + + + | Race | Unknown | + + + | Ethnic Group | Unknown | + + + Author + + + | Author | [facility] | | | and Johnana | + + + | Organization | [facility] | | | [...] | | | | | [place] [address] | | + + + + + | Ab Romykia | ECON | Unknown | | + + + + + Care Team Providers + +------+ + | Care Currency Machine Operator Name | Role | Phone | + +------+ + PCP | Unavailable | + +------+ + Encounter Details +--------+ + + + + | Date | Type | Department | Care Team | Description | +--------+ + + + + | 08/22/ | Hospital | [facility] | | | | 2011 | Encounter | [facility] | | | | | | [address] | | | | | | [place] | | | | | | [address] | | | | | | [phone] | | | +--------+ + + + [...] + + + | , SERUM, | Routin | 08/23/2011 | | Results for this | | QUAL | e | 1:25 PM | | procedure are in the | | | | PDT | | results section. | + +--------+ + + + documented in this encounter Results HCG, Serum, Qual (08/23/2011 1:25 PM PDT) + + + + + + | Component | Value | Ref Range | Performed | Pathologist | | | | | At | Signature | + + + + + + | Preg, Serum | NEGATIVEComment: | NEGATIVE | [facility] | | | | @INTERNAL CONTROL OK?: | | [facility] | | | | RED CONTROL LINE | | [facility] | | | | APPEARS? Y | | [facility]ENTER - | | | | | | LABORATORY | | + + + + + + + + | Specimen | + + | | + + + + + + + | Performing | Address | City/State/Zipcode | Phone Number | | Organization | | | | + + + + + | [facility] | [address] | [place], [place] | [phone] | | [facility] | | [address] | | | - LABORATORY | | | | + + + + + | [facility] | [address] | [place], [place] | | | [facility] | | [address] [place] [address] | | | - LABORATORY | | | | + + + + + documented in this encounter Visit Diagnoses Not on filedocumented in this encounter"
--- OUTSIDE RECORDS SUMMARY | ~2019-10-30 | XMS | Encounter Summary ---
Demographics + + + | Address | [address] | | | [place] [address] | + + + | Home Phone | | + + + | Preferred Language | Unknown | + + + | Marital Status | Single | + + + | Moravian Affiliation | 1013 | + + + | Race | Unknown | + + + | Ethnic Group | Unknown | + + + Author + + + | Author | [facility] | | | and Johnana | + + + | Organization | [facility] | | | [...] | | | | | [place] [address] | | + + + + + | Ab Romykia | ECON | Unknown | | + + + + + Care Team Providers + +------+ + | Care Industrial Maintenance Mechanic Name | Role | Phone | + +------+ + PCP | Unavailable | + +------+ + Encounter Details +--------+ + + + + | Date | Type | Department | Care Team | Description | +--------+ + + + + | 08/11/ | Hospital | [facility] | [place], | | | 2008 | Encounter | [facility] | Mike Yarbrough MD [address] | | | | CENTER [address] | [address] [place] | | | | | [place], [place] | [place] [address] | | | | | [address] | [phone] | | | | | [phone] | | | +--------+ + + + [...]
--- OUTSIDE RECORDS SUMMARY | ~2019-10-30 | XMS | Encounter Summary ---
Demographics + + + | Address | [address] | | | [place] [address] | + + + | Home Phone | | + + + | Preferred Language | Unknown | + + + | Marital Status | Single | + + + | Sikhism Affiliation | 1013 | + + + | Race | Unknown | + + + | Ethnic Group | Unknown | + + + Author + + + | Author | [facility] | | | and [place]ana | + + + | Organization | [facility] | | [...] | | | | | [place] [address] | | + + + + + | Ab Romykia | ECON | Unknown | | + + + + + Care Team Providers + +------+ + | Care Design Release Engineer Name | Role | Phone | + +------+ + | Pj Abdi MD | PCP | | + +------+ + Reason for Visit + + + | Reason | Comments | + + + | ED Follow-up | | + + + | Back Pain | | + + + | Incontinence | | + + + Encounter Details +--------+ + + + + | Date | Type | Department | Care Team | Description | +--------+ + + + + | 03/29/ | Telephone | [facility] | Pj Abdi, | ED Follow-up; Back | | 2016 | | [facility] | [address] | Pain; Incontinence | | | | [address] | [place] | | | | | [place] | [address] | | | | | [address] | | | | | | [phone] | | | +--------+ + + + [...]
--- OUTSIDE RECORDS SUMMARY | ~2019-10-30 | XMS | Encounter Summary ---
Demographics + + + | Address | [address] | | | [place] [address] | + + + | Home Phone [...] + + + | Author | [facility] | | | and [place]ana | + + + | Organization | [facility] | | | [...] | | | | | [place] [address] | | + + + + + | Ab Romykia | ECON | Unknown | | + + + + + Care Team Providers + +------+ + | Care Piece Goods Clerk Name | Role | Phone | + +------+ + | Pj Abdi MD | PCP | | + +------+ + Reason for Visit + + + | Reason | Comments | + + + | Letter | | + + + | Medication Refill | | + + + Encounter Details +--------+--------+ + + + | Date | Type | Department | Care Team | Description | +--------+--------+ + + + | 11/03/ | Refill | [facility] | Pj Abdi, | Letter; Medication | | 2017 | | [facility] [place] | [address] | Refill | | | | [address] | [place] | | | | | [place] | [phone] | | | | | [address] | | | | | | [phone] | | | +--------+--------+ + + + Social History + + + +--------+ + | Tobacco Use | Types | Packs/Day | Years | Date | | | | | Used | | + + + +--------+ + | Current Every Day | Cigarettes | 0.5 | 7 | Started: 09/17/2009 | | Smoker | [...] + | Diagnosis | + + | DDD (degenerative disc disease), lumbar - Primary Degeneration of lumbar or | | lumbosacral intervertebral disc | + + | Chronic right-sided low back pain with right-sided sciatica | + + | Facet arthritis of lumbar region Lumbosacral spondylosis without myelopathy | + + documented in this encounter"
--- OUTSIDE RECORDS SUMMARY | ~2019-10-30 | XMS | Encounter Summary ---
Demographics + + + | Address | [address] | | | [place] [address] | + + + | Home Phone | | + + + | Preferred Language | Unknown | + + + | Marital Status | Single | + + + | Buddhism Affiliation | 1013 | + + + | Race | Unknown | + + + | Ethnic Group | Unknown | + + + Author + + + | Author | [facility] | | | and [place] | + + + | Organization | [facility] | | [...] | | | | | [place] [address] | | + + + + + | Ab Bunch | ECON | Unknown | | + + + + + Care Team Providers + +------+ + | Care Complementary Health Therapists Name | Role | Phone | + +------+ + | Charles Allen MD | PCP | | + +------+ + Encounter Details +--------+ + + + + | Date | Type | Department | Care Team | Description | +--------+ + + + + | 06/13/ | [facility] | [facility] | Jimy Beck, | Strain of left | | 2019 | Encounter | [facility] [place] | DO [address] | shoulder, subsequent | | | | [address] | [place], [place] | encounter; Muscle | | | | [place], [place] | [address] | spasm of back; | | | | [address] | | Muscle spasms of | | | | [phone] | | neck | +--------+ + + + + Social [...] shoulder, subsequent encounter | + + | Muscle spasm of back Other symptoms referable to back | + + | Muscle spasms of neck Spasm of muscle | + + documented in this encounter"
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
--- OUTSIDE RECORDS SUMMARY | ~2019-10-30 | XMS | Encounter Summary ---
Demographics + + + | Address | [address] | | | [place] [address] | + + + | Home Phone [...] | [facility] | | | and [place] | + [...] | | | | | [place] [address] | | + + + + + | Absweta Bunch | ECON | Unknown | | + + + + + Care Team Providers + +------+ + | Care [employer] Name | Role | Phone | + [...] | +--------+ + + + + | 05/30/ | Emergency | [facility] | Andres Harding MD | Abdominal pain, | | 2019 | | [facility] | [address] | unspecified | | | | CENTER [address] | [place] | abdominal location | | | | [place], [place] | [address] | (Primary Dx) | | | | [address] | | | | | | [phone] | Eric Lozano MD | | | | | | [address] | | | | | | [place] | | | | | | [address] | | | | | | | [...] + + + | Blood Pressure | 138/68 | 05/30/2019 8:22 PM | | | | | PST | | + + + + + | Pulse | 84 | 05/30/2019 8:22 PM | | | | | PST | | + + + + + | Temperature | 35.9 C (96.6 F) | 05/30/2019 8:22 PM | | | | | PST | | + + + + + | Respiratory Rate | 16 | 05/30/2019 8:22 PM | | | | | PST | | + + + + + | Oxygen Saturation | 100% | 05/30/2019 8:22 PM | | | | | PST | | + + + + + | Inhaled Oxygen | - | - | | | Concentration | | | | + + + + + | Weight | - | - | | + + + + + | Height | - | - | | + + + + + | Body Mass Index | - | - | | + + + + + documented in this encounter Discharge Instructions AttachmentsThe following attachments cannot be sent through Care Everywhere.Abdominal Pain, Adult (Czech)Dicyclomine tablets or capsules (Czech)documented in this encounter Medications at Time of [...] + + + +---------+ + + | dicyclomine | Take 1 tablet by | 20 | 0 | 05/30/19 | | | (BENTYL) 20 MG | mouth every 6 hours. | tablet | | 20 | 0 | | tablet | | [...] +---------+ + + | Multiple | Take by mouth. | | 0 | | | | Vitamins-Minerals | | | | | 0 | | (ONE DAILY WOMENS 50 | | | | | | | PLUS PO) | | | | | | + + + +---------+ + + documented as of this encounter Plan of Treatment + +------+--------+ + + | Name | Type | Priori | Associated Diagnoses | Date/Time | | | | ty | | | + +------+--------+ + + | ED INFORMATION | CELSO | Routin | | 05/30/2019 8:13 PM | | EXCHANGE | | e | | PST | + +------+--------+ + + documented as of this encounter Procedures + +--------+ + + + | Procedure Name | Priori | Date/Time | Associated Diagnosis | Comments | | | ty | | | | + +--------+ + + + | CT ABDOMEN PELVIS W | STAT | 05/30/2019 | | Results for this | | CONTRAST | | 9:59 PM | | procedure are in the | | | | PST | | results section. | + +--------+ + + + | CBC WITH | STAT | 05/30/2019 | | Results for this | | DIFFERENTIAL | | 9:50 PM | | procedure are in the | | | | PST | | results section. | + +--------+ + + + | LIPASE | STAT | 05/30/2019 | | Results for this | | | | 9:50 PM | | procedure are in the | | | | PST | | results section. | + +--------+ + + + | COMPREHENSIVE | STAT | 05/30/2019 | | Results for this | | METABOLIC PANEL | | 9:50 PM | | procedure are in the | | | | PST | | results section. | + +--------+ + + + | URINALYSIS WITH | STAT | 05/30/2019 | | Results for this | | MICROSCOPIC WITH | | 9:13 PM | | procedure are in the | | CULTURE IF INDICATED | | PST | | results section. | + +--------+ + + + | POCT TEST, | STAT | 05/30/2019 | | Results for this | | URINE, QUAL | | 9:13 PM | | procedure are in the | | | | PST | | results section. | + +--------+ + + + | ED INFORMATION | Routin | 05/30/2019 | | | | EXCHANGE | e | 8:13 PM | | | | | | PST | | | + +--------+ + + + +---+--------+ | | | | | Proced | | | ure | | | Note - | | | Honorio, | | | Lab In | | | | | | Hlseve | | | n - | | | | | | 2019 | | | 8:14 | | | PM PST | | [...] | | | FICATI | | | ON?/ | | | | | | 0 | | | 20:12? | | | SHAH | | | LSH, | | | SABRIN | | | A | | | K?MRN: | | | | | | [id number] | | | [id number] | | | riteri | | | [...] | | | 2019-1 | | | 2-26 | | | SUBOXO | | | NE 8 | | | MG-2 | | | MG SL | | | FILM | | | 18 | | | JEFFRE | | | Y | | | GRAWE | | | 3 | | | 308.57 | | | 1 | | | 2019- | | | 2-12 | | | SUBOXO | | | NE 8 | | | MG-2 | | | MG SL | | | FILM | | | 23 | | | JEFFRE | | | Y | | | GRAWE | | | 3 368 | | | 2019- | | | 1-29 | | | [...] | | | 2019-1 | | | 0-31 | | | SUBOXO | | | NE 8 | | | MG-2 | | | MG SL | | | FILM | | | 21 | | | JEFFRE | | | Y | | | GRAWE | | | 3 360 | | | 2019-1 | | | 0-18 | | | [...] | | of the | | | 25 | | | most-r | | | ecent | | | prescr | | | iption | | | s Rx | | | Summar | | | yMetri | | | c | | | Count | | | CS | | | II-V | | | Rx 25 | | | CS-II | | | Rx 0 | | | Quanti | | | ty | | | Dispen | | | sed | | | 526 | | | Unique | | | | | | Prescr | | | ibers | | | 2 | | | Unique | | | | | | Pharma | | | cies 2 | | | | | | Benzos | | | 0 | | | Opioid | | | s 25 | | | Long | | | [...] | | | Center | | | 2 0 | | | Total | | | 2 0 | | | Note: | | [...] | | | int | | | Cesar 8, | | | 2020 | | | Provid | | | ence | | | [facility] | | [facility] | [place] | | | [place] | | | Emerge | | | ncy | | | | | | Abdomi | | | nal | | | Pain | | | Dec | | | [...] | | | pain | | | Neck | | | Pain | | | | | | Back | | | Pain | | | | | | Strain | | | of | | | muscle | | | , | | | fascia | | | and | | | tendon | | | of | | | lower | | | back, | | | init | | | Nov 4, | | [...] | | | of | | | pega developer | | | al | | | operat | | | ion | | | (surgi | | | adriana) | | | wound, | | | NEC, | | | init | | | Recent | | | [...] | | | Dates | | | PEREZ | | | , | | | BRAN | | | , MD | | | Family | | | | | | Medici | | | ne | | | Curren | | | t | | | BRAN | | | PEREZ | | | | | | Primar [...] | | | https: | | | //prov | | | .colle | | | ctivem | | | edical | | | .com/[email or web address] | | | otify/ | | | [id number] | | | [email or web address] | | | [email or web address] | | | -[email or web address] | | | [email or web address] | | | [email or web address] | | | | | | PLEASE | | | [...] | | | ed.? | | | 2020 | | | Collec | | | tive | | | Medica | | | l | | | Techno | | | logies | | | , Inc. | | | - | | | [email or web address] | | | llecti | | | vemedi | | | [email or web address] | | | m | +---+--------+ documented in this encounter Results CT Abdomen Pelvis w Contrast (05/30/2019 9:59 PM PST) + + | Specimen | + + | | + + + + + | Impressions | Performed At | + + + | 1. NO EVIDENCE OF ACUTE INTRA-ABDOMINAL DISEASE. 2. LUMBAR | [facility] | | DEXTROSCOLIOSIS AND EXAGGERATION OF THE LORDOSIS WITH PSEUDOARTHROSIS | | | AT THE LUMBOSACRAL JUNCTION DESCRIBED. Preliminary results of | | | this study were reported to the ER staff by the [facility] | | | radiologist on May 30, 2019 at 2219 hours. Dictated and Signed | | | by: Brad Cline MD Electronically signed: 05/31/2019 7:32 AM | | + + + + + + | Narrative | Performed At | + + + | ENHANCED CT ABDOMEN AND PELVIS 05/30/2019 9:53 PM CLINICAL | [facility] | | HISTORY: LLQ abdominal pain, diverticulitis suspected Left lower | | | quadrant and left upper quadrant pain ongoing for the past 3 days | | | associated nausea and vomiting COMPARISON: CT December 2017 | | | and more remote imaging TECHNIQUE: Axial images are performed | | | through the abdomen and pelvis following the uneventful intravenous | | | administration of 80 mL Omnipaque 350 contrast. Coronal and | | | sagittal reformations are also performed. ABDOMEN FINDINGS: | | | Imaged lung bases and mediastinum are unremarkable. The liver, | | | partially contracted gallbladder, spleen, pancreas, adrenal glands and | | | kidneys are unremarkable. No nephroureterolithiasis or | | | hydroureteronephrosis is evident. The stomach and bowel are | | | unremarkable, without evidence of obstruction or visible | | | inflammation. The appendix appears to be surgically absent. No | | | free air, ascites, pathologic lymph node enlargement or hernia is | | | evident. Abdominal vasculature appears patent and unremarkable. | | | There is rightward lumbar curvature and exaggeration of the | | | lordosis with pseudoarthrosis of the right transverse process of a | | | transitional lumbosacral vertebra with the upper sacrum. Small | | | Schmorl's nodes are present in the lower thoracic region. PELVIS | | | FINDINGS: The bladder is mostly decompressed and not well evaluated. | | | Uterus and adnexal regions are unremarkable. No free air, free | | | fluid, pathologic lymph node enlargement, or hernia is evident. | | | Bones and soft tissues are unremarkable. | | + + + + + | Procedure Note | + + | Honorio, Rad Results In - 05/31/2019 7:[address] PST [address] ABDOMEN AND PELVIS | | 05/30/2019 9:53 PM CLINICAL HISTORY: LLQ abdominal pain, diverticulitis suspectedLeft | | lower quadrant and left upper quadrant pain ongoing for the past 3 daysassociated nausea | | and vomiting COMPARISON: CT December 2017 and more remote imaging TECHNIQUE: Axial | | images are performed through the abdomen and pelvis followingthe uneventful intravenous | | administration of 80 mL Omnipaque 350 contrast. Coronal and sagittal reformations | | are also performed. ABDOMEN FINDINGS: Imaged lung bases and mediastinum are | | unremarkable. Theliver, partially contracted gallbladder, spleen, pancreas, adrenal | | glands andkidneys are unremarkable. No nephroureterolithiasis or hydroureteronephrosis | | isevident. The stomach and bowel are unremarkable, without evidence ofobstruction or | | visible inflammation. The appendix appears to be surgicallyabsent. No free air, | | ascites, pathologic lymph node enlargement or hernia isevident. Abdominal vasculature | | appears patent and unremarkable. There isrightward lumbar curvature and exaggeration of | | the lordosis with pseudoarthrosisof the right transverse process of a transitional | | lumbosacral vertebra with theupper sacrum. Small Schmorl's nodes are present in the | | lower thoracic region. PELVIS FINDINGS: The bladder is mostly decompressed and not well | | evaluated. Uterus and adnexal regions are unremarkable. No free air, free | | fluid,pathologic lymph node enlargement, or hernia is evident. Bones and soft | | tissuesare unremarkable. IMPRESSION: 1. NO EVIDENCE OF ACUTE INTRA-ABDOMINAL DISEASE.2. | | LUMBAR DEXTROSCOLIOSIS AND EXAGGERATION OF THE LORDOSIS WITH PSEUDOARTHROSISAT THE | | LUMBOSACRAL JUNCTION DESCRIBED.Preliminary results of this study were reported to the | | ER staff by the [facility] radiologist on May 30, 2019 at 2219 hours.Dictated | | and Signed by: Brad Cline MD Electronically signed: 05/31/2019 7:32 AM | |PELVIS FINDINGS: The bladder is mostly decompressed and not well evaluated. | |Uterus and adnexal regions are unremarkable. No free air, free fluid, | |pathologic lymph node enlargement, or hernia is evident. Bones and soft tissues | |are unremarkable. | | | |IMPRESSION: | |1. NO EVIDENCE OF ACUTE INTRA-ABDOMINAL DISEASE. | | | |2. LUMBAR DEXTROSCOLIOSIS AND EXAGGERATION OF THE LORDOSIS WITH PSEUDOARTHROSIS | |AT THE LUMBOSACRAL JUNCTION DESCRIBED. | | | |Preliminary results of this study were reported to the ER staff by the [facility] |[facility] radiologist on May 30, 2019 at 2219 hours. | | | |Dictated and Signed by: Brad Cline MD | | Electronically signed: 05/31/2019 7:32 AM | + + + +---------+ + + | Performing | Address | City/State/[facility] | Phone Number | | Organization | | | | + +---------+ + + | [facility] | | | | + +---------+ + + Lipase (05/30/2019 9:50 PM PST) + + + + + + | Component | Value | Ref Range | Performed | Pathologist | | | | | At | Signature | + + + + + + | Lipase | 60 (H)Comment: New | 12 - 53 U/L | [facility] | | | | method in use as of | | [facility] | | | | July 19, 2018. Check | | MEDICAL | | | | reference range for | | CENTER - | | | | changes.Some analytes | | LABORATORY | | | | show significant | | | | | | variation from the | | | | | | previous method.It may | | | | | | be necessary to set a | | | | | | new baseline for this | | | | | | analyte. | | | | + + + + + + + + | Specimen | + + | Blood | + + + + + + + | Performing | Address | City/State/Zipcode | Phone Number | | Organization | | | | + + + + + | [facility] | [address] | [place] | [phone] | | [facility] | | [address] | | | - LABORATORY | | | | + + + + + Comprehensive Metabolic Panel (05/30/2019 9:50 PM PST) + + + + + + | Component | Value | Ref Range | Performed | Pathologist | | | | | At | Signature | + + + + + + | Na | 139 | 136 - 145 | [facility] | | | | | mmol/L | [facility] | | | | | | MEDICAL | | | | | | CENTER - | | | | | | LABORATORY | | + + + + + + | K | 3.7 | 3.4 - 5.1 | [facility] | | | | | mmol/L | [facility] | | | | | | MEDICAL | | | | | | CENTER - | | | | | | LABORATORY | | + + + + + + | Cl | 106 | 98 - 107 mmol/L | [facility] | | | | | | [facility] | | | | | | MEDICAL | | | | | | CENTER - | | | | | | LABORATORY | | + + + + + + | CO2 | 27 | 20 - 31 mmol/L | [facility] | | | | | | [facility] | | | | | | MEDICAL | | | | | | CENTER - | | | | | | LABORATORY | | + + + + + + | Anion Gap | 6 | 3 - 16 mmol/L | [facility] | | | | | | [facility] | | | | | | MEDICAL | | | | | | CENTER - | | | | | | LABORATORY | | + + + + + + | Glucose | 82 | 60 - 106 mg/dL | [facility] | | | | | | [facility] | | | | | | MEDICAL | | | | | | CENTER - | | | | | | LABORATORY | | + + + + + + | BUN | 7 (L) | 9 - 23 mg/dL | [facility] | | | | | | [facility] | | | | | | MEDICAL | | | | | | CENTER - | | | | | | LABORATORY | | + + + + + + | Creatinine | 0.71 | 0.55 - 1.02 | [facility] | | | | | mg/dL | [facility] | | | | | | MEDICAL | | | | | | CENTER - | | | | | | LABORATORY | | + + + + + + | eGFR if not | >60Comment: GLOMERULAR | >=60 | [facility] | | | | FILTRATION | mL/min/1.73m2 | [facility] | | | [place] | RATE,ESTIMATED | | MEDICAL | | | | mL/min/1.73d0Aock than | | CENTER - | | [...] + + + + | Calcium | 10.0 | 8.7 - 10.4 | [facility] | | | | | mg/dL | [facility] | | | | | | MEDICAL | | | | | | CENTER - | | | | | | LABORATORY | | + + + + + + | Albumin | 4.6 | 3.2 - 4.8 g/dL | [facility] | | | | | | [facility] | | | | | | MEDICAL | | | | | | CENTER - | | | | | | LABORATORY | | + + + + + + | Bilirubin | 0.2 (L) | 0.3 - 1.2 mg/dL | [facility] | | | Total | | | [facility] | | | | | | MEDICAL | | | | | | CENTER - | | | | | | LABORATORY | | + + + + + + | Total | 6.6 | 5.7 - 8.2 g/dL | [facility] | | | Protein | | | [facility] | | | | | | MEDICAL | | | | | | CENTER - | | | | | | LABORATORY | | + + + + + + | AST | 22 | 0 - 34 U/L | [facility] | | | | | | [facility] | | | | | | MEDICAL | | | | | | CENTER - | | | | | | LABORATORY | | + + + + + + | ALT | 13 | 10 - 49 U/L | [facility] | | | | | | [facility] | | | | | | MEDICAL | | | | | | CENTER - | | | | | | LABORATORY | | + + + + + + | Alkaline | 73 | 46 - 116 U/L | [facility] | | | Phosphatase | | | [facility] | | | | | | MEDICAL | | | | | | CENTER - | | | | | | LABORATORY | | + + + + + + | Globulin | 2.0 (L) | 2.1 - 3.8 g/dL | [facility] | | | | | | [facility] | | | | | | MEDICAL | | | | | | CENTER - | | | | | | LABORATORY | | + + + + + + | Albumin/Bianca | 2.3 (H) | 0.8 - 1.9 | [facility] | | | bulin Ratio | | | [facility] | | | | | | MEDICAL | | | | | | CENTER - | | | | | | LABORATORY | | + + + + + + | BUN/Creatin | 9.9 | | [facility] | | | ine Ratio | | | [facility] | | [...] + | [facility] | [address] | [place] | [phone] | | [facility] | | [address] | | | - LABORATORY | | | | + + + + + CBC with Differential (05/30/2019 9:50 PM PST) + + + + + + | Component | Value | Ref Range | Performed | Pathologist | | | | | At | Signature | + + + + + + | WBC | 8.7 | 4.0 - 11.0 K/uL | [facility] | | | | | | [facility] | | | | | | MEDICAL | | | | | | CENTER - | | | | | | LABORATORY | | + + + + + + | RBC | 3.91 | 3.70 - 5.20 | [facility] | | | | | M/uL | [facility] | | | | | | MEDICAL | | | | | | CENTER - | | | | | | LABORATORY | | + + + + + + | Hemoglobin | 11.7 | 11.5 - 16.0 | [facility] | | | | | g/dL | [facility] | | | | | | MEDICAL | | | | | | CENTER - | | | | | | LABORATORY | | + + + + + + | Hematocrit | 34.7 | 34.0 - 47.0 % | [facility] | | | | | | [facility] | | | | | | MEDICAL | | | | | | CENTER - | | | | | | LABORATORY | | + + + + + + | MCV | 88.7 | 83.0 - 101.0 fL | [facility] | | | | | | [facility] | | | | | | [facility] | | | | | | CENTER - | | | | | | LABORATORY | | + + + + + + | MCH | 29.9 | 28.0 - 35.0 pg | [facility] | | | | | | [facility] | | | | | | MEDICAL | | | | | | CENTER - | | | | | | LABORATORY | | + + + + + + | MCHC | 33.7 | 32.0 - 36.0 | [facility] | | | | | g/dL | [facility] | | | | | | MEDICAL | | | | | | CENTER - | | | | | | LABORATORY | | + + + + + + | RDW-CV | 15.0 (H) | <15.0 % | [facility] | | | | | | [facility] | | | | | | MEDICAL | | | | | | CENTER - | | | | | | LABORATORY | | + + + + + + | RDW-SD | 48.9 (H) | 35.1 - 46.3 fL | [facility] | | | | | | [facility] | | | | | | MEDICAL | | | | | | CENTER - | | | | | | LABORATORY | | + + + + + + | Platelet | 347 | 140 - 440 K/uL | [facility] | | | Count | | | [facility] | | | | | | MEDICAL | | | | | | CENTER - | | | | | | LABORATORY | | + + + + + + | MPV | 9.3 | 6.5 - 12.4 fL | [facility] | | | | | | [facility] | | | | | | MEDICAL | | | | | | CENTER - | | | | | | LABORATORY | | + + + + + + | % | 66.3 | 45.0 - 82.0 % | [facility] | | | Neutrophils | | | [facility] | | | | | | MEDICAL | | | | | | CENTER - | | | | | | LABORATORY | | + + + + + + | % | 27.0 | 20.0 - 45.0 % | [facility] | | | Lymphocytes | | | [facility] | | | | | | MEDICAL | | | | | | CENTER - | | | | | | LABORATORY | | + + + + + + | % Monocytes | 4.1 | 4.0 - 12.0 % | [facility] | | | | | | [facility] | | | | | | MEDICAL | | | | | | CENTER - | | | | | | LABORATORY | | + + + + + + | % | 1.7 | 0.0 - 5.0 % | [facility] | | | Eosinophils | | | [facility] | | [...] + + + + + | % Immature | 0.3Comment: For | 0.0 - 0.4 % | [facility] | | | Granulocyte | patients, use the | | [facility] | | | s | special reference ranges | | MEDICAL | | | | listed below. | | CENTER - | | | | | | LABORATORY | | + + + + + + | Absolute | 5.75 | 1.80 - 8.50 | [facility] | | | Neutrophils | | K/uL | [facility] | | | | | | MEDICAL | | | | | | CENTER - | | | | | | LABORATORY | | + + + + + + | Absolute | 2.34 | 0.60 - 3.20 | [facility] | | | Lymphocytes | | K/uL | [facility] | | | | | | MEDICAL | | | | | | CENTER - | | | | | | LABORATORY | | + + + + + + | Absolute | 0.36 | 0.00 - 1.00 | [facility] | | | Monocytes | | K/uL | [facility] | | | | | | MEDICAL | | | | | | CENTER - | | | | | | LABORATORY | | + + + + + + | Absolute | 0.15 | 0.00 - 0.40 | [facility] | | | Eosinophils | | K/uL | [facility] | | | | | | MEDICAL | | | | | | CENTER - | | | | | | LABORATORY | | + + + + + + | Absolute | 0.05 | 0.00 - 0.10 | [facility] | | | Basophils | | K/uL | [facility] | | | | | | MEDICAL | | | | | | CENTER - | | | | | | LABORATORY | | + + + + + + | Absolute | 0.03Comment: For | 0.00 - 0.03 | [facility] | | | Immature | patients, use | K/uL | [facility] | | | Granulocyte | the special reference | | MEDICAL | | | s | ranges listed below. | | CENTER - | | | | | | LABORATORY | | + + + + + + | % nRBC | 0 | 0 - 2 per 100 | [facility] | | | | | WBCs | [facility] | | | | | | MEDICAL | | | | | | CENTER - | | | | | | LABORATORY | | + + + + + + | Absolute | 0.00 | 0.00 - 0.01 | [facility] | | | nRBC | | K/uL | [facility] | | | | | | MEDICAL | | | | | | CENTER - | | | | | | LABORATORY | | + + + + + + + + | Specimen | + + | Blood | + + + + + | Narrative | Performed At | + + + | IMMATURE GRANULOCYTES - For patients, use the following | [facility] | | reference ranges: Trim. Absolute (K/uL) Percentage (%) | [facility] | | 1st 0.003-0.091 K/uL 0.0-0.9% 2nd 0.007-0.247 K/uL | [facility] | | 0.1-2.0% 3rd 0.018-0.456 K/uL 0.1-2.0% | - LABORATORY | + + + + + + + + | Performing | Address | City/State/Zipcode | Phone Number | | Organization | | | | + + + + + | [facility] | [address] | [place] | [phone] | | [facility] | | [address] | | | - LABORATORY | | | | + + + + + POCT Test, Urine, QUAL (05/30/2019 9:13 PM PST) + + + + + [...] + + + | Specific | | | | | | [place], | | | | | | POC | | | | | + + + + + + | Lot Number | [id number] | | | | + + + + + + | Expiration | 2020-09-07 | | | | | Date | | | | | + + + + + + + + | Specimen | + + | Urine | + + Urinalysis with Microscopic with Culture if Indicated (05/30/2019 9:13 PM PST) + + + + + + | Component | Value | Ref Range | Performed | Pathologist | | | | | At | Signature | + + + + + + | Color, | Straw | Light Yellow, | [facility] | | [...] + + + + | Specific | 1.005 | 1.001 - 1.030 | [facility] | | | [place], | | | [facility] | | [...] + | [facility] | [address] | [place], [place] | [phone] | | [facility] | | [address] | | | - LABORATORY | | | | + + + + + documented in this encounter Visit Diagnoses + + | Diagnosis | + + | Abdominal pain, unspecified abdominal location - Primary | + + documented in this encounter Administered Medications + + + +-------+------+------+ | Medication Order | MAR | Action | Dose | Rate | Site | | | Action | Date | | | | + + + +-------+------+------+ | dicyclomine (BENTYL) 10 mg | Dispense | 05/30/19 | 20 mg | | | | capsule (ER Prepack) 20 mg 20 | to Home | 20 10:40 | | | | | mg, Oral, EVERY 6 HOURS (4 times | | PM PST | | | | | per day), First dose on Tue | | | | | | | 05/30/19 at 2240 | | | | | | + + + +-------+------+------+ +---+---+ | | | +---+---+ + +-------+ +--------+---+---+ | iohexol (OMNIPAQUE 350) 350 | Given | 05/30/19 | 80 mLs | | | | mg/mL injection 80 mL 80 mL, | | 20 9:55 | | | | | Intravenous, ONCE PRN, Other, | | PM PST | | | | | Starting 05/30/19 at 2155, For | | | | | | | 1 dose, Cat Scanner | | | | | | + +-------+ +--------+---+---+ +---+---+ | | | +---+---+ + +---------+ +--------+-------+---+ | sodium chloride 0.9% (NS) bolus | New Bag | 05/30/19 | 1,000 | 2000 | | | 1,000 mL 1,000 mL, Intravenous, | | 20 10:18 | mLs | mL/hr | | | Administer over 30 Minutes, | | PM PST | | | | | ONCE, 05/30/19 at 2140, For 1 | | | | | | | dose | | | | | | + +---------+ +--------+-------+---+ +---+---+ | | | +---+---+ documented in this encounter"
--- OUTSIDE RECORDS SUMMARY | ~2019-10-30 | XMS | Encounter Summary ---
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
--- OUTSIDE RECORDS SUMMARY | ~2019-10-30 | XMS | Encounter Summary ---
Demographics + + + | Address | [address] | | | [place] [address] | + + + | Home Phone | | + + + | Preferred Language | Unknown | + + + | Marital Status | Single | + + + | Christian Affiliation | 1013 | + + + | Race | Unknown | + + + | Ethnic Group | Unknown | + + + Author + + + | Author | [facility] | | | and Johnana | + + + | Organization | [facility] | | | [...] | | | | | [place] [address] | | + + + + + | Ab Bunch | ECON | Unknown | | + + + + + Care Team Providers + +------+ + | Care Marine Chronometer Assembler Name | Role | Phone | + [...] | | unspecified | [place], [place] | [address] Phone: | | | | | back pain | [address] | [phone] | | | | | laterality, | Phone: | Fax: | | | | | unspecified | [phone] | [phone] | | | | | chronicity | Fax: | | | | | | Urinary | [phone] | | | | | | retention [...] + + | 08/07/ | Emergency | [facility] | [facility] | Back pain, | | 2017 - | | [facility] | MD Mike [address] | unspecified back | | | | CENTER [address] | [facility] | location, | | 08/08/ | | [place] | [place] [address] | unspecified back | | 2017 | | [address] | [phone] | pain laterality, | | | | [phone] | | unspecified | | | | [...] be sent through Care Everywhere.BACK CARE TIPS (PORTUGUESE)BACK PAIN (ACUTE OR CHRONIC) (PORTUGUESE)URINARY RETENTION, FEMALE (PORTUGUESE)documented in this encounter Medications at Time of [...] visible distal | | cord is unremarkable. [id number] L2-L3 are unremarkable as seen on the [...] visible distal | | cord is unremarkable. [id number] L2-L3 are unremarkable as seen on the [...] | | [employer] | | | [facility] | | | | | | [...] + | [facility] | [address] | [place] | [phone] | | [facility] | | [address] | | | - LABORATORY | | [...] ST. | [address] | [place] | [phone] | | [facility] | | [address] | | | - LABORATORY | | [...] [address] | [place] | [phone] | | [facility] | | [address] | | | - LABORATORY | | [...] + | [facility] | [address] | [place] | [phone] | | [facility] | | [address] | | | - LABORATORY | | [...] [address] | [place] | [phone] | | [facility] | | [address] | | | - LABORATORY | | [...] | mL/min/1.73m2 | [facility] | | | MACANESE | RATE,ESTIMATED | | MEDICAL | | | | mL/min/1.57k6Irmw than | | CENTER - | | [...] + | [facility] | [address] | [place] | [phone] | | [facility] | | [address] | | | - LABORATORY | | [...] [address] | [place] | [phone] | | [facility] | | [address] | | | - LABORATORY | | [...] intravenous administration of 85 milliliters | | [id number]. Automated exposure control, Adjustment of mA and/or [...] - 1.030 | [facility] | | | [place], | | | [facility] | | [...] [address] | [place] | [phone] | | [facility] | | [address] | | | - LABORATORY | | [...] visible distal | | cord is unremarkable. [id number] L2-L3 are unremarkable as seen on the [...]
--- OUTSIDE RECORDS SUMMARY | ~2019-10-30 | XMS | Encounter Summary ---
Demographics + + + | Address | [address] | | | [place] [address] | + + + | Home Phone | | + + + | Preferred Language | Unknown | + + + | Marital Status | Single | + + + | Presybeterian Affiliation | 1013 | + + + [...] | | | | | [place] [address] | | + + + + + | Ab Romykia | ECON | Unknown | | + + + + + Care Team Providers + +------+ + | Care Equipment Technician Name | Role | Phone | [...] Description | +--------+--------+ + + + | 12/21/ | Refill | [facility] | Pj Abdi, | Medication Refill | | 2018 | | [facility] [place] | [address] | | | | | [address] | [place] | | | | | [place] | [address] | | | | | [address] | | | | | | [phone] | | | +--------+--------+ + + + [...]
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
--- OUTSIDE RECORDS SUMMARY | ~2019-10-30 | XMS | Encounter Summary ---
Demographics + + + | Address | [address] | | | [place] [address] | + + + | Home Phone | | + + + | Preferred Language | Unknown | + + + | Marital Status | Single | + + + | Baptism Affiliation | 1013 | + + + | Race | Unknown | + + + | Ethnic Group | Unknown | + + + Author + + + | Author | [facility] | | | and Johnana | + + + | Organization | [facility] | | | [...] | | | | | [place] [address] | | + + + + + | Ab Romykia | ECON | Unknown | | + + + + + Care Team Providers + +------+ + | Care Contract Graphic Designer Name | Role | Phone | + +------+ + PCP | Unavailable | + +------+ + Encounter Details +--------+ + + + + | Date | Type | Department | Care Team | Description | +--------+ + + + + | 01/06/ | Hospital | [facility] | Mukesh Coppola | | | 2011 - | Encounter | MED CTR EM[facility]Y | MD Fernando [address] | | | | [place] [address] | [address] [place] | | | 01/07/ | | [place], [place] | [place] [address] | | | 2011 | | [address] | [phone] | | | | | [phone] | | | +--------+ + + + [...] + | URINALYSIS, REFLEX | Routin | 01/07/2012 | | Results for this | | MICROSCOPIC AND/OR | e | 10:53 PM | | procedure are in the | | CULTURE | | PDT | | results section. | + +--------+ + + + | CBC WITH | Routin | 01/07/2012 | | Results for this | | DIFFERENTIAL | e | 10:47 PM | | procedure are in the | | | | PDT | | results section. | + +--------+ + + + | LIPASE | Routin | 01/07/2012 | | Results for this | | | e | 10:47 PM | | procedure are in the | | | | PDT | | results section. | + +--------+ + + + | COMPREHENSIVE | Routin | 01/07/2012 | | Results for this | | METABOLIC PANEL | e | 10:47 PM | | procedure are in the | | | | PDT | | results section. | + +--------+ + + + | CT ABDOMEN PELVIS W | | 01/07/2012 | | Results for this | | CONTRAST | | 9:11 PM | | procedure are in the | | | | PDT | | results section. | + +--------+ + + + documented in this encounter Results Urinalysis, Reflex Microscopic and/or Culture (01/07/2012 10:53 PM PDT) + + + + + + | Component | Value | Ref Range | Performed | Pathologist | | | | | At | Signature | + + + + + + | COLLECTION | VOID | | [facility] | | | [facility] | | [facility] | | | | | | MEDICAL | | | | | | CENTER - | | | | | | LABORATORY | | + + + + + + | Color, | LIGHT YELLOW | | [facility] | | | [...] | 1.015 | 1.001 - 1.030 | [facility] | | | [place], | | | [facility] | | | Urine | | | MEDICAL | | | | | | CENTER - | | | | | | LABORATORY | | + + + + + + | Blood, | NEGATIVE | NEGATIVE | [facility] | | | Urine | | | [facility] | | | | | | MEDICAL | | | | | | CENTER - | | | | | | LABORATORY | | + + + + + + | pH, Urine | 6.0 | 5.0 - 8.0 | [facility] | [...] White Blood | 0-2 | 0 - 1 /hpf | [facility] [...] + + + + | Squamous | FEW | FEW /hps | [facility] | | | Epithelial | | | [facility] | | | Cells, | | | MEDICAL | | | Urine | | | CENTER - | | | | | | LABORATORY | | + + + + + + | Bacteria, | FEW | NONE /hpf | [facility] | | [...] [address] | [place] | [phone] | | [facility] | | [address] | | | - LABORATORY | | | | + + + + + | [facility] [facility] | [address] | [place] | | | [facility] | | [address], [facility] | | | - LABORATORY | | | | + + + + + Comprehensive Metabolic Panel (01/07/2012 10:47 PM PDT) + + + + + + | Component | Value | Ref Range | Performed | Pathologist | | | | | At | Signature | + + + + + + | Glucose | 89 | 70 - 109 mg/dL | [facility] | | | | | | [facility] | | | | | | MEDICAL | | | | | | CENTER - | | | | | | LABORATORY | | + + + + + + | Calcium | 8.6 | 8.3 - 10.5 | [facility] | | | | | mg/dL | [facility] | | | | | | MEDICAL | | | | | | CENTER - | | | | | | LABORATORY | | + + + + + + | Alkaline | 74 | 40 - 110 IU/L | [facility] | | | Phosphatase | | | [facility] | | | | | | MEDICAL | | | | | | CENTER - | | | | | | LABORATORY | | + + + + + + | AST | 16 | 10 - 42 IU/L | [facility] | | | | | | [facility] | | | | | | MEDICAL | | | | | | CENTER - | | | | | | LABORATORY | | + + + + + + | ALT | 11 | 6 - 45 IU/L | [facility] | | | | | | [facility] | | | | | | MEDICAL | | | | | | CENTER - | | | | | | LABORATORY | | + + + + + + | Bilirubin | 0.5 | 0.2 - 1.0 mg/dL | [facility] | | | Total | | | [facility] | | | | | | MEDICAL | | | | | | CENTER - | | | | | | LABORATORY | | + + + + + + | Total | 6.1 | 6.0 - 7.8 gm/dL | [facility] | | | Protein | | | [facility] | | | | | | MEDICAL | | | | | | CENTER - | | | | | | LABORATORY | | + + + + + + | Albumin | 3.9 | 3.2 - 5.0 gm/dL | [facility] | | | | | | [facility] | | | | | | MEDICAL | | | | | | CENTER - | | | | | | LABORATORY | | + + + + + + | BUN | 2 (L) | 7 - 18 mg/dL | [facility] | | | | | | [facility] | | | | | | MEDICAL | | | | | | CENTER - | | | | | | LABORATORY | | + + + + + + | Creatinine | 0.65 | 0.60 - 1.30 | [facility] | | | | | mg/dL | [facility] | | | | | | MEDICAL | | | | | | CENTER - | | | | | | LABORATORY | | + + + + + + | Estimated | >60Comment: For | >60 mL/min/A | [facility] | | | GFR | -Americans, | | [facility] | | | | please multiply the [...] + + + + | BUN/Creatin | 3.1 (L) | 12 - 20 | [facility] | | | ine Ratio | | | [facility] | | | | | | MEDICAL | | | | | | CENTER - | | | | | | LABORATORY | | + + + + + + | Na | 134 (L) | 136 - 149 mEq/L | [facility] | | | | | | [facility] | | | | | | MEDICAL | | | | | | CENTER - | | | | | | LABORATORY | | + + + + + + | K | 3.8 | 3.5 - 5.1 mEq/l | [facility] | | | | | | [facility] | | | | | | MEDICAL | | | | | | CENTER - | | | | | | LABORATORY | | + + + + + + | Cl | 104 | 98 - 109 mEq/l | [facility] | | | | | | [facility] | | | | | | MEDICAL | | | | | | CENTER - | | | | | | LABORATORY | | + + + + + + | CO2 | 26 | 24 - 31 mEq/L | [facility] | | | | | | [facility] | | | | | | MEDICAL | | | | | | CENTER - | | | | | | LABORATORY | | + + + + + + | Anion Gap | 7.8 | 6.0 - 17.0 | [facility] | | | | | [...] + | [facility] | [address] | [place], [place] | [phone] | | [facility] | | [address] | | | - LABORATORY | | | | + + + + + | [facility] | [address] | [place], [place] | | | [facility] | | [address], [facility] | | | - LABORATORY | | | | + + + + + Lipase (01/07/2012 10:47 PM PDT) + +-------+ + + + | Component | Value | Ref Range | Performed | Pathologist | | | | | At | Signature | + +-------+ + + + | Lipase | 15 | 0 - 60 U/L | [facility] | | | | | | [facility] [...] + | [facility] | [address] | [place] | [phone] | | [facility] | | [address] | | | - LABORATORY | | | | + + + + + | [facility] | [address] | [place] | | | [facility] | | [id number] | | | - LABORATORY | | | | + + + + + CBC with Differential (01/07/2012 10:47 PM PDT) + +-------+ + + + | Component | Value | Ref Range | Performed | Pathologist | | | | | At | Signature | + +-------+ + + + | WBC | 8.5 | 4.0 - 11.0 K/uL | [facility] | | | | | | [facility] | | | | | | MEDICAL | | | | | | CENTER - | | | | | | LABORATORY | | + +-------+ + + + | RBC | 4.01 | 3.70 - 5.20 | [facility] | | | | | M/uL | [facility] | | | | | | MEDICAL | | | | | | CENTER - | | | | | | LABORATORY | | + +-------+ + + + | Hemoglobin | 12.9 | 11.5 - 16.0 | [facility] | | | | | gm/dL | [facility] | | | | | | MEDICAL | | | | | | CENTER - | | | | | | LABORATORY | | + +-------+ + + + | Hematocrit | 37.2 | 34.0 - 47.0 % | [facility] | | | | | | [facility] | | | | | | MEDICAL | | | | | | CENTER - | | | | | | LABORATORY | | + +-------+ + + + | MCV | 92.8 | 83.0 - 101.0 fL | [facility] | | | | | | [facility] | | | | | | MEDICAL | | | | | | CENTER - | | | | | | LABORATORY | | + +-------+ + + + | MCH | 32.1 | 28.0 - 35.0 pg | [facility] | | | | | | [facility] | | | | | | MEDICAL | | | | | | CENTER - | | | | | | LABORATORY | | + +-------+ + + + | MCHC | 34.6 | 32.0 - 36.0 | [facility] | | | | | g/dL | [facility] | | | | | | MEDICAL | | | | | | CENTER - | | | | | | LABORATORY | | + +-------+ + + + | RDW-CV | 12.5 | <15.0 % | [facility] | | | | | | [facility] | | | | | | MEDICAL | | | | | | CENTER - | | | | | | LABORATORY | | + +-------+ + + + | Platelet | 250 | 140 - 440 K/uL | [facility] | | | Count | | | [facility] | | | | | | MEDICAL | | | | | | CENTER - | | | | | | LABORATORY | | + +-------+ + + + | % | 57.8 | 45 - 75 % | [facility] | | | Neutrophils | | | [facility] | | | | | | MEDICAL | | | | | | CENTER - | | | | | | LABORATORY | | + +-------+ + + + | % | 33.5 | 20 - 45 % | [facility] | | | Lymphocytes | | | [facility] | | | | | | MEDICAL | | | | | | CENTER - | | | | | | LABORATORY | | + +-------+ + + + | % Monocytes | 5.9 | 4 - 12 % | [facility] | | | | | | [facility] | | | | | | MEDICAL | | | | | | CENTER - | | | | | | LABORATORY | | + +-------+ + + + | % | 2.3 | 0 - 5 % | [facility] | | | Eosinophils | | | [facility] | | | | | | MEDICAL | | | | | | CENTER - | | | | | | LABORATORY | | + +-------+ + + + | % Basophils | 0.5 | 0 - 1 % | [facility] | | | | | | [facility] | | | | | | MEDICAL | | | | | | CENTER - | | | | | | LABORATORY | | + +-------+ + + + | Absolute | 4.9 | 1.5 - 6.6 K/uL | [facility] | | | Neutrophils | | | [facility] | | | | | | MEDICAL | | | | | | CENTER - | | | | | | LABORATORY | | + +-------+ + + + | Absolute | 2.8 | 0.6 - 3.2 K/uL | [facility] | | | Lymphocytes | | | [facility] | | | | | | MEDICAL | | | | | | CENTER - | | | | | | LABORATORY | | + +-------+ + + + | Absolute | 0.5 | 0.0 - 1.0 K/uL | [facility] | | | Monocytes | | | [facility] | | | | | | MEDICAL | | | | | | CENTER - | | | | | | LABORATORY | | + +-------+ + + + | Absolute | 0.2 | 0.0 - 0.4 K/uL | [facility] | | | Eosinophils | | | [facility] | | | | | | MEDICAL | | | | | | CENTER - | | | | | | LABORATORY | | + +-------+ + + + | Absolute | 0.0 | 0.0 - 0.1 K/uL | [facility] | | | Basophils | | | [facility] | | | | | | MEDICAL | | | | | | CENTER - | | | | | | LABORATORY | | + +-------+ + + + + + | Specimen | + + | | + + + + + + + | Performing | Address | City/State[facility] | Phone Number | | Organization | | | | + + + + + | [facility] | [address] | [place] | [phone] | | [facility] | | [address] | | | - LABORATORY | | | | + + + + + | [facility] | [address] | [place] | | | [facility] | | [address], [place] | | | - LABORATORY | | | | + + + + + CT Abdomen Pelvis w Contrast (01/07/2012 9:11 PM PDT) + + | Specimen | + + | | + + + + + | Narrative | Performed At | + + + | [facility] Diagnostic Imaging Department | [facility] | | [address] [facility] | [facility] | | CT ABDOMEN AND PELVIS WITH | DIAG IMG | | CONTRAST, 01/07/2012 CLINICAL HISTORY: Abdominal pain. | | | TECHNIQUE: Imaging is performed from the lung bases to the pubic | | | symphysis, following the uneventful intravenous administration of 75 | | | mL of Isovue-370. FINDINGS: LOWER LUNGS: The lower lungs | | | are clear. No pleural effusions. No pneumothorax. | | | ABDOMEN/PELVIS: Two hypodensities in the liver. One is under 5 mm. | | | One more anteriorly subcapsular measures 9 mm. It cannot be | | | characterized as a simple cyst, but is very nonaggressive appearing | | | and may be a cyst or hemangioma. The remainder of the liver is | | | unremarkable. The spleen and pancreas are intact and unremarkable. | | | Kidneys are symmetrically enhancing. No obstructive uropathy. | | | There are no adrenal masses. Pancreas is unremarkable. No | | | evidence for a gastrointestinal tract obstruction. The appendix is | | | air- filled in the right lower quadrant and normal. There is a | | | small amount of free fluid in the pelvis. There is a cyst in the | | | right adnexa, likely ovarian. It measures about 3.9 cm. There | | | may be a small follicle in the left ovary. The uterus is poorly | | | imaged due to heterogeneity from bolus timing. There is no free | | | air. No aneurysmal dilatation of the abdominal aorta. No | | | significant lymphadenopathy. Rightward curvature of the spine may | | | be positional or due to a mild scoliosis. Transitional lumbosacral | | | anatomy with a left-sided pseudoarthrosis of the L5 transverse | | | process and the sacrum. Spina bifida occulta at L5. | | | IMPRESSION: 1. NO APPENDICITIS. 2. 3.8 CM CYSTIC STRUCTURE | | | LIKELY IN THE RIGHT OVARY, LIKELY A CYST. CONSIDER FURTHER IMAGING | | | WARRANTED TORSION IS NOT EXCLUDED ON THE CT EXAMINATION. 3. | | | TRANSITIONAL LUMBOSACRAL ANATOMY WITH A LEFT L5-S1 PSEUDOARTHROSIS. | | | COMMENT: PRELIMINARY REPORT WAS PROVIDED BY DR. RM ON | | | 01/07/2012 AT 11:55 P.M. PACIFIC TIME. Dictated Date/Time: | | | 01/08/2012 08:22 Transcribed Date/Time: 01/08/2012 10:15 | | | Potash Flaker: ALYSON <Electronically Signed by Nikko Nickerson, | | | > 01/08/12 1195 | | + + + + + | Procedure Note | + + | Honorio, Rad Conversion - 06/29/2013 5:52 PM [facility] | | Diagnostic Imaging Department | | [address] [facility] | | | | | | | | CT ABDOMEN AND PELVIS WITH CONTRAST, 01/07/2012 | | | | CLINICAL HISTORY: Abdominal pain. | | | | TECHNIQUE: Imaging is performed from the lung bases to the pubic symphysis, | | following the uneventful intravenous administration of 75 mL of Isovue-370. | | | | FINDINGS: | | LOWER LUNGS: The lower lungs are clear. No pleural effusions. No | | pneumothorax. | | | | ABDOMEN/PELVIS: Two hypodensities in the liver. One is under 5 mm. One more | | anteriorly subcapsular measures 9 mm. It cannot be characterized as a simple | | cyst, but is very nonaggressive appearing and may be a cyst or hemangioma. The | | remainder of the liver is unremarkable. The spleen and pancreas are intact and | | unremarkable. Kidneys are symmetrically enhancing. No obstructive uropathy. | | There are no adrenal masses. Pancreas is unremarkable. | | | | No evidence for a gastrointestinal tract obstruction. The appendix is air- | | filled in the right lower quadrant and normal. There is a small amount of free | | fluid in the pelvis. There is a cyst in the right adnexa, likely ovarian. It | | measures about 3.9 cm. There may be a small follicle in the left ovary. The | | uterus is poorly imaged due to heterogeneity from bolus timing. There is no | | free air. No aneurysmal dilatation of the abdominal aorta. No significant | | lymphadenopathy. Rightward curvature of the spine may be positional or due to | | a mild scoliosis. Transitional lumbosacral anatomy with a left-sided | | pseudoarthrosis of the L5 transverse process and the sacrum. Spina bifida | | occulta at L5. | | | | IMPRESSION: | | 1. NO APPENDICITIS. | | | | 2. 3.8 CM CYSTIC STRUCTURE LIKELY IN THE RIGHT OVARY, LIKELY A CYST. CONSIDER | | FURTHER IMAGING WARRANTED TORSION IS NOT EXCLUDED ON THE CT EXAMINATION. | | | | 3. TRANSITIONAL LUMBOSACRAL ANATOMY WITH A LEFT L5-S1 PSEUDOARTHROSIS. | | | | COMMENT: PRELIMINARY REPORT WAS PROVIDED BY DR. RM ON 01/07/2012 AT 11:55 | | P.M. PACIFIC TIME. | | | | Dictated Date/Time: 01/08/2012 08:22 | | Transcribed Date/Time: 01/08/2012 10:15 | | Potash Flaker: | | <Electronically Signed by Nikko Nickerson MD> 01/08/12 1838 | + + + +---------+ + + | Performing | Address | City/State/Zipcode | Phone Number | | Organization | | | | + +---------+ + + | [place] | | | | | [facility] | | | | + +---------+ + + documented in this encounter Visit Diagnoses Not on filedocumented in this encounter"
--- OUTSIDE RECORDS SUMMARY | ~2019-10-30 | XMS | Encounter Summary ---
Demographics + + + | Address | [address] | | | [place] [address] | + + + | Home Phone | | + + + | Preferred Language | Unknown | + + + | Marital Status | Single | + + + | Protestant Affiliation | 1013 | + + + | Race | Unknown | + + + | Ethnic Group | Unknown | + + + Author + + + | Author | [facility] | | | and Johnana | + + + | Organization | [facility] | | [...] | | | | | [place] [address] | | + + + + + | Ab Julio C | ECON | Unknown | | + + + + + Care Team Providers + +------+ + | Care Interstate Planner Name | Role | Phone | + [...] + + | 03/25/ | Emergency | [facility] | Jeannette, | Chronic bilateral | | 2017 - | | MED CTR EMERGENCY | Mike Yarbrough MD [address] | low back pain with | | | | CENTER [address] | [address] [place] | right-sided sciatica | | 03/26/ | | [place] | [place] [address] | (Primary Dx); | | 2016 | | [address] | [phone] | Urinary | | | | [phone] | | incontinence, | | | | | Eric Lozano MD | unspecified type | | | | | [address] | | | | | | [place] | | | | | | [id number] | | | | | | | [...] through Care Everywhere.Back Pain (Low) : Self-Care ([place])documented in this encounter Medications at Time of [...] K?MRN: | | | | | | [id number] | | | [id number] | | | his | | | [...] | | | ent/a9 | | | [id number] | | | [id number] | | | [...] | | | PJ | | | ABID | | | 2 | | | [...] | | preliminary report was sent by [facility] with no significant | | | discrepancy. [...] | A preliminary report was sent by [employer] with no significant | | discrepancy. | [...] ST. | [address] | [place] | [phone] | | [facility] | | [address] | | | - LABORATORY | | [...] | 1.010, 1.015, | | | | [place], | | 1.020, 1.025 | | | [...] 1.001 - 1.030 | | | | [place], | | | | | | [facility], [...]
--- OUTSIDE RECORDS SUMMARY | ~2019-10-30 | XMS | Encounter Summary ---
Demographics + + + | Address | [address] | | | [place] [address] | + + + | Home Phone | | + + + | Preferred Language | Unknown | + + + | Marital Status | Single | + + + | Jew Affiliation | 1013 | + + + | Race | Unknown | + + + | Ethnic Group | Unknown | + + + Author + + + | Author | [facility] | | | and Johnana | + + + | Organization | [facility] | | | [...] | | | | | [place] [address] | | + + + + + | Ab Romykia | ECON | Unknown | | + + + + + Care Team Providers + +------+ + | Care Accounting Professional Name | Role | Phone | + [...] | +--------+ + + + + | 12/11/ | Emergency | [facility] | Jesse Newman, | Pelvic cramping | | 2018 | | [facility] | [place] [address] | (Primary Dx); | | | | [place] [address] | [place] | Vaginal bleeding, | | | | [place], [place] | [address] | abnormal | | | | [address] | | | | | | [phone] | | | +--------+ + + + [...] + + + | Blood Pressure | 127/78 | 12/11/2017 3:58 PM | | | | | PDT | | + + + + + | Pulse | 76 | 12/11/2017 3:58 PM | | | | | PDT | | + + + + + | Temperature | 36.8 C (98.3 F) | 12/11/2017 2:14 PM | | | | | PDT | | + + + + + | Respiratory Rate | 12 | 12/11/2017 3:58 PM | | | | | PDT | | + + + + + | Oxygen Saturation | 100% | 12/11/2017 3:58 PM | | | | | PDT | | + + + + + | Inhaled Oxygen | - | - | | | Concentration | | | | + + + + + | Weight | 59 kg (130 lb) | 12/11/2017 2:14 PM | | | | | PDT | | + + + + + | Height | 162.6 cm (5' 4") | 12/11/2017 2:14 PM | | | | | PDT | | + + + + + | Body Mass Index | 22.31 | 12/11/2017 2:14 PM | | | | | PDT | | + + + + + documented in this encounter Discharge Instructions AttachmentsThe following attachments cannot be sent through Care Everywhere.Bowen Juarez (Arabic)documented in this encounter Medications at Time of [...] tablet by | 15 | 0 | 12/12/19 | | | HYDROcodone-acetamin | mouth every 6 hours | tablet | | 18 | 8 | | ophen (NORCO) 5-325 | as needed. | | | | | | mg [...] | + +------+--------+ + + | ED | CELSO | Routin | | 12/11/2017 1:51 PM | | EXCHANGE | | e | | PDT | + +------+--------+ + + documented as of this encounter Procedures + +--------+ + + + | Procedure Name | Priori | Date/Time | Associated Diagnosis | Comments | | | ty | | | | + +--------+ + + + | US PELVIS W | STAT | 12/11/2017 | | Results for this | | TRANSVAGINAL | | 3:39 PM | | procedure are in the | | | | PDT | | results section. | + +--------+ + + + | HCG, URINE, QUAL | STAT | 12/11/2017 | | Results for this | | | | 2:47 PM | | procedure are in the | | | | PDT | | results section. | + +--------+ + + + | URINALYSIS WITH | STAT | 12/11/2017 | | Results for this | | MICROSCOPIC | | 2:47 PM | | procedure are in the | | | | PDT | | results section. | + +--------+ + + + | CBC WITH | STAT | 12/11/2017 | | Results for this | | DIFFERENTIAL | | 2:26 PM | | procedure are in the | | | | PDT | | results section. | + +--------+ + + + | HCG, SERUM, QUANT | STAT | 12/11/2017 | | Results for this | | | | 2:26 PM | | procedure are in the | | | | PDT | | results section. | + +--------+ + + + | LIPASE | STAT | 12/11/2017 | | Results for this | | | | 2:26 PM | | procedure are in the | | | | PDT | | results section. | + +--------+ + + + | COMPREHENSIVE | STAT | 12/11/2017 | | Results for this | | METABOLIC PANEL | | 2:26 PM | | procedure are in the | | | | PDT | | results section. | + +--------+ + + + | ED INFORMATION | Routin | 12/11/2017 | | | | EXCHANGE | e | 1:51 PM | | | | | | PDT | | | + +--------+ + + + +---+--------+ | | | | | Proced | | | ure | | | Note - | | | Thomas, | | | Lab In | | | | | | Hlseve | | | n - | | | | | | 2017 | | | 1:52 | | | PM PDT | | [...] ON?/ | | | | | | 8 | | | 13:47? | | | SHAH | | | LSH, | | | SABRIN | | | A | | | K?MRN: | | | | | | [id number] | | | [id number] | | | his | | | [...] | | | ent/a9 | | | [id number] | | | [id number] | | | [...] | | | int | | | Caleb | | | [...] | | | pain | | | Apr | | | 26, | | | 2018 | | | Provid | | | ence | | | [facility] | | [facility] [place] | | | [place] | | | Emerge | | | ncy | | | Emerge | | | ncy | | | Foot | | | Lacera | | | tion | | | Foot | | | Pain | | | | | | Contus | | | ion of | | | right | | | foot, | | | | | | initia | | | l | | | encoun | | | ter | | | E.D. | | | [...] | | | Center | | | 7 0 | | | Total | | | 7 0 | | | Note: | | [...] Care | | | | | | Provid | | | ersPro | | | vider | | | PRC | | | Type | | | Phone | | | Fax | | | Servic | | | e | | | Dates | | | ABDI | | | , | | | PJ | | | RANJEET, | | | MD | | | Indivi | | | dual | | | or | | | Groups | | | (of | | | Indivi | | | duals) | | | | | | Curren | | | t | | | PJ | | | ABDI | | | | | | Primar | | | y Care | | | | | | [phone] | | | [phone] | | | [phone] | | | Curren | | | t | | | [place] | | | | | | Health | | | care | | | of | | | [place] | | | gton | | | Primar | | | [...] | +---+--------+ documented in this encounter Results US Pelvis W Transvaginal (12/11/2017 3:39 PM PDT) + + | Specimen | + + | | + + + + + | Narrative | Performed At | + + + | EXAM:US PELVIS W TRANSVAGINAL CLINICAL HISTORY: ABDOMINAL PAIN | [facility] | | COMPARISON: February 15, 2016. FINDINGS: Transabdominal and | | | transvaginal imaging of the pelvis. Uterus: There is a | | | calcification in the myometrium just deep to the endometrial cavity. | | | Endometrium is homogeneously hyperechoic and measures 3 mm. The | | | uterus measures 7 x 2.7 x 3.4 cm. Ovaries and adnexa: Right ovary | | | has been surgically removed. There are prominent simple follicles | | | in the left ovary. The left ovary measures 4 x 3 x 2.3 centimeters. | | | Color and spectral Doppler flow are identified in the left ovary. | | | There are no adnexal masses. There is no significant free fluid. | | | IMPRESSION - Hyperechoic focus in the myometrium of the uterus. | | | This is probably related to prior instrumentation. | | | Unremarkable appearing left ovary. No sonographic evidence for | | | ovarian torsion. The preliminary findings were conveyed to the | | | ordering provider, by the tile setter supervisor, immediately following the | | | exam. Dictated and Signed by: Nikko Nickerson MD | | | Electronically signed: 12/11/2017 3:57 PM | | + + + + + | Procedure Note | + + | Thomas, Rad Results In - 12/11/2017 4:00 PM PDT EXAM:US PELVIS W TRANSVAGINAL | | | | CLINICAL HISTORY: ABDOMINAL PAIN | | | | COMPARISON: February 15, 2016. | | | | FINDINGS: Transabdominal and transvaginal imaging of the pelvis. | | | | Uterus: There is a calcification in the myometrium just deep to the endometrial | | cavity. Endometrium is homogeneously hyperechoic and measures 3 mm. The uterus | | measures 7 x 2.7 x 3.4 cm. | | | | Ovaries and adnexa: Right ovary has been surgically removed. There are | | prominent simple follicles in the left ovary. The left ovary measures 4 x 3 x | | 2.3 centimeters. Color and spectral Doppler flow are identified in the left | | ovary. There are no adnexal masses. There is no significant free fluid. | | | | IMPRESSION - | | | | Hyperechoic focus in the myometrium of the uterus. This is probably related to | | prior instrumentation. | | | | Unremarkable appearing left ovary. No sonographic evidence for ovarian torsion. | | | | The preliminary findings were conveyed to the ordering provider, by the | | tile setter supervisor, immediately following the exam. | | | | Dictated and Signed by: Nikko Nickerson MD | | Electronically signed: 12/11/2017 3:57 PM | + + + +---------+ + + | Performing | Address | City/State/Zipcode | Phone Number | | Organization | | | | + +---------+ + + | [facility] | | | | + +---------+ + + , Urine, Qual (12/11/2017 2:47 PM PDT) + + + + + + | Component | Value | Ref Range | Performed | Pathologist | | | | | At | Signature | + + + + + + | HCG | Negative | Negative | [facility] | | | Qualitative | | | [facility] | | | , Urine | | | MEDICAL | | [...] | + + + + + | [facility] | [address] | [place] | [phone] | | [facility] | | [address] | | | - LABORATORY | | | | + + + + + Urinalysis With Microscopic (12/11/2017 2:47 PM PDT) + + + + [...] + + + + | Specific | 1.003 | 1.001 - 1.030 | [facility] | | | [place], | | | [facility] | | [...] + + + + + | [facility] | [address] | [place], [place] | [phone] | | [facility] | | [address] | | | - LABORATORY | | | | + + + + + HCG, Serum, Quant (12/11/2017 2:26 PM PDT) + + + + + + | Component | Value | Ref Range | Performed | Pathologist | | | | | At | Signature | + + + + + + | hCG Quant, | 1Comment: REFERENCE | 0 - 1 mIU/mL | [facility] | | | Serum | RANGE: | | [facility] | | | | B-hCG | | MEDICAL | | | | LEVELGestational Age | | CENTER - | | | | Expected hCG | | LABORATORY | | | | Values | | | | | | | | | | | | 0 | | | | | | .2-1 week | | | | | | 5-50 | | | | | | mIU/mL1-2 weeks | | | | | | 50-500 | | | | | | mIU/mL2-3 weeks | | | | | | 100-5,000 | | | | | | mIU/mL3-4 weeks | | | | | | 500-10,000 | | | | | | mIU/mL4-5 weeks | | | | | | 1,000-50,000 | | | | | | mIU/mL5-6 weeks | | | | | | 10,000-100,000 | | | | | | mIU/mL6-8 weeks | | | | | | 15,000-200,000 | | | | | | mIU/mL2-3 months | | | | | | 10,000-100,000 | | | | | | mIU/mL | | | | + + + + + + + + | Specimen | + + | Blood | + + + + + + + | Performing | Address | City/State/Zipcode | Phone Number | | Organization | | | | + + + + + | [facility] | [address] | [place] | [phone] | | [facility] | | [address] | | | - LABORATORY | | | | + + + + + Lipase (12/11/2017 2:26 PM PDT) + +-------+ + + + | Component | Value | Ref Range | Performed | Pathologist | | | | | At | Signature | + +-------+ + + + | Lipase | 25 | 0 - 60 U/L | [facility] | | | | | | [facility] [...] + | [facility] | [address] | [place] | [phone] | | [facility] | | [address] | | | - LABORATORY | | | | + + + + + Comprehensive Metabolic Panel (12/11/2017 2:26 PM PDT) + + + + + + | Component | Value | Ref Range | Performed | Pathologist | | | | | At | Signature | + + + + + + | Na | 137 | 136 - 149 | [facility] | | | | | mmol/L | [facility] | | | | | | MEDICAL | | | | | | CENTER - | | | | | | LABORATORY | | + + + + + + | K | 3.8 | 3.5 - 5.1 | [facility] | [...] CO2 | 26 | 24 - 31 mmol/L | [facility] | | | | | | [facility] | | | | | | MEDICAL | | | | | | CENTER - | | | | | | LABORATORY | | + + + + + + | Anion Gap | 5 | 3 - 16 mmol/L | [facility] | | | | | | [facility] | | | | | | MEDICAL | | | | | | CENTER - | | | | | | LABORATORY | | + + + + + + | Glucose | 97 | 70 - 109 mg/dL | [facility] | | | | | | [facility] | | | | | | MEDICAL | | | | | | CENTER - | | | | | | LABORATORY | | + + + + + + | BUN | 6 (L) | 7 - 18 mg/dL | [facility] | | | | | | [facility] | | | | | | MEDICAL | | | | | | CENTER - | | | | | | LABORATORY | | + + + + + + | Creatinine | 0.75 | 0.60 - 1.30 | [facility] | | | | | mg/dL | [facility] | | | | | | MEDICAL | | | | | | CENTER - | | | | | | LABORATORY | | + + + + + + | eGFR if not | >60Comment: GLOMERULAR | >=60 | [facility] | | | | FILTRATION | mL/min/1.73m2 | [facility] | | | CUBAN | RATE,ESTIMATED | | MEDICAL | | | | mL/min/1.67v7Gdgo than | | CENTER - | | [...] + + + + | Calcium | 9.7 | 8.3 - 10.5 | [facility] | | | | | mg/dL | [facility] | | | | | | MEDICAL | | | | | | CENTER - | | | | | | LABORATORY | | + + + + + + | Albumin | 3.9 | 3.2 - 5.0 g/dL | [facility] | | | | | | [facility] | | | | | | MEDICAL | | | | | | CENTER - | | | | | | LABORATORY | | + + + + + + | Bilirubin | 0.8Comment: This is an | 0.1 - 1.5 mg/dL | [facility] | | | Total | appended report. These | | [facility] | | | | results have been | | MEDICAL | | | | appended to a previously | | CENTER - | | | | preliminary verified | | LABORATORY | | | | report. | | | | + + + + + + | Total | 5.8 (L) | 6.0 - 7.8 g/dL | [facility] | | | Protein | | | [facility] | | | | | | MEDICAL | | | | | | CENTER - | | | | | | LABORATORY | | + + + + + + | AST | 17Comment: This is an | 10 - 42 U/L | [facility] | | | | appended report. These | | [facility] | | | | results have been | | MEDICAL | | | | appended to a previously | | CENTER - | | | | preliminary verified | | LABORATORY | | | | report. | | | | + + + + + + | ALT | 11Comment: This is an | 6 - 45 U/L | [facility] | | | | appended report. These | | [facility] | | | | results have been | | MEDICAL | | | | appended to a previously | | CENTER - | | | | preliminary verified | | LABORATORY | | | | report. | | | | + + + + + + | Alkaline | 61Comment: This is an | 40 - 110 U/L | [facility] | | | Phosphatase | appended report. These | | [facility] | | | | results have been | | MEDICAL | | | | appended to a previously | | CENTER - | | | | preliminary verified | | LABORATORY | | | | report. | | | | + + + + + + | Globulin | 1.9 (L) | 2.1 - 3.8 g/dL | [facility] | | | | | | [facility] | | | | | | MEDICAL | | | | | | CENTER - | | | | | | LABORATORY | | + + + + + + | Albumin/Bianca | 2.1 (H) | 0.8 - 2.0 | [facility] | | | bulin Ratio | | | [facility] | | | | | | MEDICAL | | | | | | CENTER - | | | | | | LABORATORY | | + + + + + + | BUN/Creatin | 8.0 | | [facility] | | | ine Ratio | | | [facility] | | [...] [address] | [place] | [phone] | | [facility] | | [address] | | | - LABORATORY | | | | + + + + + CBC with Differential (12/11/2017 2:26 PM PDT) + + + + + + | Component | Value | Ref Range | Performed | Pathologist | | | | | At | Signature | + + + + + + | WBC | 7.4 | 4.0 - 11.0 K/uL | [facility] | | | | | | [facility] | | | | | | MEDICAL | | | | | | CENTER - | | | | | | LABORATORY | | + + + + + + | RBC | 3.62 (L) | 3.70 - 5.20 | [facility] | | | | | M/uL | [facility] | | | | | | MEDICAL | | | | | | CENTER - | | | | | | LABORATORY | | + + + + + + | Hemoglobin | 11.4 (L) | 11.5 - 16.0 | [facility] | | | | | g/dL | [facility] | | | | | | MEDICAL | | | | | | CENTER - | | | | | | LABORATORY | | + + + + + + | Hematocrit | 33.0 (L) | 34.0 - 47.0 % | [facility] | | | | | | [facility] | | | | | | MEDICAL | | | | | | CENTER - | | | | | | LABORATORY | | + + + + + + | MCV | 91.3 | 83.0 - 101.0 fL | [facility] | | | | | | [facility] | | | | | | MEDICAL | | | | | | CENTER - | | | | | | LABORATORY | | + + + + + + | MCH | 31.6 | 28.0 - 35.0 pg | [facility] | | | | | | [facility] | | | | | | MEDICAL | | | | | | CENTER - | | | | | | LABORATORY | | + + + + + + | MCHC | 34.6 | 32.0 - 36.0 | [facility] | | | | | g/dL | [facility] | | | | | | MEDICAL | | | | | | CENTER - | | | | | | LABORATORY | | + + + + + + | RDW-CV | 13.7 | <15.0 % | [facility] | | | | | | [facility] | | | | | | MEDICAL | | | | | | CENTER - | | | | | | LABORATORY | | + + + + + + | Platelet | 253 | 140 - 440 K/uL | [facility] | | | Count | | | [facility] | | | | | | MEDICAL | | | | | | CENTER - | | | | | | LABORATORY | | + + + + + + | MPV | 8.0 | fL | [facility] | | | | | | [facility] | | | | | | MEDICAL | | | | | | CENTER - | | | | | | LABORATORY | | + + + + + + | % | 62.0 | 45.0 - 82.0 % | [facility] | | | Neutrophils | | | [facility] | | | | | | MEDICAL | | | | | | CENTER - | | | | | | LABORATORY | | + + + + + + | % | 30.9 | 20.0 - 45.0 % | [facility] [...] + + + + | % | 2.4 | 0.0 - 5.0 % | [facility] [...] + + + + | Absolute | 4.60 | 1.80 - 8.50 | [facility] | | | Neutrophils | | K/uL | [facility] | | | | | | MEDICAL | | | | | | CENTER - | | | | | | LABORATORY | | + + + + + + | Absolute | 2.30 | 0.60 - 3.20 | [facility] | | | Lymphocytes | | K/uL | [facility] | [...] + + + + | Absolute | 0.20 | 0.00 - 0.40 | [facility] | [...] | | Basophils | | K/uL | [facility] | | | | | | [...] | [facility] | [address] | [place] | [phone] | | [facility] | | [address] | | | - LABORATORY | | | | + + + + + documented in this encounter Visit Diagnoses + + | Diagnosis | + + | Pelvic cramping - Primary Unspecified symptom associated with female genital organs | + + | Vaginal bleeding, abnormal Other specified noninflammatory disorder of vagina | + + documented in this encounter Administered Medications + +--------+ +------+------+------+ | Medication Order | MAR | Action | Dose | Rate | Site | | | Action | Date | | | | + +--------+ +------+------+------+ | HYDROmorphone (DILAUDID) | Given | 12/12/19 | 1 mg | | | | injection 1 mg 1 mg, | | 18 2:45 | | | | | Intravenous, ONCE, 12/11/17 at | | PM PDT | | | | | 1425, For 1 dose | | | | | | + +--------+ +------+------+------+ +---+---+ | | | +---+---+ documented in this encounter
--- OUTSIDE RECORDS SUMMARY | ~2019-10-30 | XMS | Encounter Summary ---
Demographics + + + | Address | [address] | | | [place] [address] | + + + | Home Phone [...] + + + | Author | [facility] | | | and Johnana | + + + | Organization | [facility] | | | [...] | | | | | [place] [address] | | + + + + + | Ab Romykia | ECON | Unknown | | + + + + + Care Team Providers + +------+ + | Care Deputy [employer] Name | Role | Phone | + [...] + | 06/05/ | Refill | [facility] | [place], | Medication Refill | | 2018 | | [facility] | [address] | | | | | [address] | [place] | | | | | [place] | [address] | | | | | [address] | | | | | | [phone] | | | +--------+--------+ + + + [...]
--- OUTSIDE RECORDS SUMMARY | ~2019-10-30 | XMS | Encounter Summary ---
Demographics + + + | Address | [address] | | | [place] [address] | + + + | Home Phone | | + + + | Preferred Language | Unknown | + + + | Marital Status | Single | + + + | Tenriism Affiliation | 1013 | + + + | Race | Unknown | + + + | Ethnic Group | Unknown | + + + Author + + + | Author | [facility] | | | and Johnana | + + + | Organization | [facility] | | [...] | | | | | [place] [address] | | + + + + + | Ab Romykia | ECON | Unknown | | + + + + + Care Team Providers + +------+ + | Care Funeral Director And Embalmer Name | Role | Phone | + +------+ + PCP | Unavailable | + +------+ + Encounter Details +--------+ + + + + | Date | Type | Department | Care Team | Description | +--------+ + + + + | 11/18/ | Hospital | [facility] | Rebecca Astudillo MD | | | 2011 | Encounter | MED CTR XRAY [address] | [place] | | | | | [place] | | | | | | [place] [address] | | | | | | [phone] | | | +--------+ + + + [...] +--------+ + + + | US PELVIS | | 11/19/2011 | | Results for this | | TRANSABDOMINAL | | 1:28 PM | | procedure are in the | | | | PDT | | results section. | + +--------+ + + + | US NON-OB | | 11/19/2011 | | Results for this | | TRANSVAGINAL | | 1:28 PM | | procedure are in the | | | | PDT | | results section. | + +--------+ + + + documented in this encounter Results US Non-Ob Transvaginal (11/19/2011 1:28 PM PDT) + + | Specimen | + + | | + + + + + | Narrative | Performed At | + + + | [facility] Diagnostic Imaging Department | [facility] | | [address] | [facility] | | PELVIC ULTRASOUND TRANSABDOMINAL | DIAG IMG | | AND TRANSVAGINAL, 11/19/2011 CLINICAL HISTORY: RIGHT-SIDED | | | PELVIC PAIN. FINDINGS: The uterus is normal in appearance. The | | | right ovary demonstrates multiple benign-appearing small follicular | | | cysts. The left ovary is enlarged measuring 56 mm. There is a dominant | | | simple cyst of the left ovary. Color flow vascularity is normal. | | | There is no significant cul-de-sac fluid. IMPRESSION: 1. LEFT | | | OVARIAN CYST; FOLLOWUP IS SUGGESTED. Dictated Date/Time: | | | 11/19/2011 15:26 Transcribed Date/Time: 11/19/2011 17:59 | | | Title Inspector: <Electronically Signed by Josh Alford, | | | MD> 11/22/11 1726 | | + + + + + | Procedure Note | + + | Honorio, Rad Conversion - 06/29/2013 5:37 PM [facility] | | Diagnostic Imaging Department [address] [place] [address] | | PELVIC ULTRASOUND TRANSABDOMINAL AND TRANSVAGINAL, | | 11/19/2011 CLINICAL HISTORY: RIGHT-SIDED PELVIC PAIN. FINDINGS: The uterus is normal | | in appearance. The right ovary demonstrates multiple benign-appearing small follicular | | cysts. The left ovary is enlarged measuring 56 mm. There is a dominant simple cyst of | | the left ovary. Color flow vascularity is normal. There is no significant cul-de-sac | | fluid. IMPRESSION: 1. LEFT OVARIAN CYST; FOLLOWUP IS SUGGESTED. Dictated Date/Time: | | 11/19/2011 15:26Transcribed Date/Time: 11/19/2011 17:59Transcriptionist: | | <Electronically Signed by Josh Alford MD> 11/22/11 0034 | |FINDINGS: The uterus is normal in appearance. The right ovary demonstrates multiple benign -appearing | | small follicular cysts. The left ovary is enlarged measuring 56 mm. There is a dominant si mple cyst | |of the left ovary. Color flow vascularity is normal. There is no significant cul-de-sac flu id. | | | |IMPRESSION: | |1. LEFT OVARIAN CYST; FOLLOWUP IS SUGGESTED. | | | |Dictated Date/Time: 11/19/2011 15:26 | |Transcribed Date/Time: 11/19/2011 17:59 | |Title Inspector: | |<Electronically Signed by Josh Alford MD> 11/22/11 1726 | + + + +---------+ + + | Performing | Address | City/State/Zipcode | Phone Number | | Organization | | | | + +---------+ + + | [place] | | | | | [facility] | | | | + +---------+ + + US Pelvis Transabdominal (11/19/2011 1:28 PM PDT) + + | Specimen | + + | | + + + + + | Narrative | Performed At | + + + | [facility] Diagnostic Imaging Department | [facility] | | [address] [facility] | [facility] | | PELVIC ULTRASOUND TRANSABDOMINAL | DIAG IMG | | AND TRANSVAGINAL, 11/19/2011 CLINICAL HISTORY: RIGHT-SIDED | | | PELVIC PAIN. FINDINGS: The uterus is normal in appearance. The | | | right ovary demonstrates multiple benign-appearing small follicular | | | cysts. The left ovary is enlarged measuring 56 mm. There is a dominant | | | simple cyst of the left ovary. Color flow vascularity is normal. | | | There is no significant cul-de-sac fluid. IMPRESSION: 1. LEFT | | | OVARIAN CYST; FOLLOWUP IS SUGGESTED. Dictated Date/Time: | | | 11/19/2011 15:26 Transcribed Date/Time: 11/19/2011 17:59 | | | Title Inspector: <Electronically Signed by Josh Alford, | | | MD> 11/20/112016 | | + + + + + | Procedure Note | + + | Honorio, Rad Conversion - 06/29/2013 5:37 PM [facility] | | Diagnostic Imaging Department [address] [place] [address] | | PELVIC ULTRASOUND TRANSABDOMINAL AND TRANSVAGINAL, | | 11/19/2011 CLINICAL HISTORY: RIGHT-SIDED PELVIC PAIN. FINDINGS: The uterus is normal | | in appearance. The right ovary demonstrates multiple benign-appearing small follicular | | cysts. The left ovary is enlarged measuring 56 mm. There is a dominant simple cyst of | | the left ovary. Color flow vascularity is normal. There is no significant cul-de-sac | | fluid. IMPRESSION: 1. LEFT OVARIAN CYST; FOLLOWUP IS SUGGESTED. Dictated Date/Time: | | 11/19/2011 15:26Transcribed Date/Time: 11/19/2011 17:59Transcriptionist: | | <Electronically Signed by Josh Alford MD> 11/20/112016 | |FINDINGS: The uterus is normal in appearance. The right ovary demonstrates multiple benign -appearing | | small follicular cysts. The left ovary is enlarged measuring 56 mm. There is a dominant si mple cyst | |of the left ovary. Color flow vascularity is normal. There is no significant cul-de-sac flu id. | | | |IMPRESSION: | |1. LEFT OVARIAN CYST; FOLLOWUP IS SUGGESTED. | | | |Dictated Date/Time: 11/19/2011 15:26 | |Transcribed Date/Time: 11/19/2011 17:59 | |Title Inspector: | |<Electronically Signed by Josh Alford MD> 11/20/11 2017 | + + + +---------+ + + | Performing | Address | City/State/Zipcode | Phone Number | | Organization | | | | + +---------+ + + | [place] | | | | | [facility] | | | | + +---------+ + + documented in this encounter Visit Diagnoses Not on filedocumented in this encounter"
--- OUTSIDE RECORDS SUMMARY | ~2019-10-30 | XMS | Encounter Summary ---
Demographics + + + | Address | [address] | | | [place] [address] | + + + | Home Phone | | + + + | Preferred Language | Unknown | + + + | Marital Status | Single | + + + | Episcopal Affiliation | 1013 | + + + | Race | Unknown | + + + | Ethnic Group | Unknown | + + + Author + + + | Author | [facility] | | | and Johnana | + + + | Organization | [facility] | | [...] | | | | | [place] [address] | | + + + + + | Ab Bunch | ECON | Unknown | | + + + + + Care Team Providers + +------+ + | Care Egg Breaking Machine Operator Name | Role | Phone | + +------+ + | Charles Allen MD | PCP | | + +------+ + Encounter Details +--------+ + + + + | Date | Type | Department | Care Team | Description | +--------+ + + + + | 12/01/ | Orders Only | [facility] | Pj Abdi, | Hematuria | | 2017 | | [facility] [place] | [address] | | | | | [address] | [place] | | | | | [place], [place] | [address] | | | | | [address] | | | | | | [phone] | | | +--------+ + + + [...] + + + | URINALYSIS WITH | Routin | 11/30/2016 | Hematuria | Results for this | | MICROSCOPIC | e | 6:42 PM | | procedure are in the | | | | PDT | | results section. | + +--------+ + + + documented in this encounter Results Urinalysis With Microscopic (11/30/2016 6:42 PM PDT) + + + + + [...] + + + + | Clarity | Cloudy (A) | Clear | [facility] | | [...] + + + + | Specific | 1.034 (H) | 1.001 - 1.030 | [facility] | | | [place], | | | [facility] | | | Urine | | | MEDICAL | | | | | | CENTER - | | | | | | LABORATORY | | + + + + + + | Protein, | 30 mg/dL (A) | Negative | [facility] | | | Urine | | | [facility] | | | | | | MEDICAL | | | | | | CENTER - | | | | | | LABORATORY | | + + + + + + | Blood, | Moderate (A) | Negative | [facility] | | | [...] + + + | White Blood | 5-10 (A) | 0 - 2 /HPF | [facility] | | | Cells, | | | [facility] | | | Urine | | | MEDICAL | | | | | | CENTER - | | | | | | LABORATORY | | + + + + + + | Red Blood | 15-25 (A) | 0 - 2 /HPF | [...] + + + + | Calcium | Moderate (A) | None Seen /HPF | [facility] | | | Oxalate | | | [facility] | | | Crystals, | | | MEDICAL | | | [...] [address] | [place] | [phone] | | [facility] | | [address] | | | - LABORATORY | | | | + + + + + documented in this encounter Visit Diagnoses + + | Diagnosis | + + | Hematuria Hematuria, unspecified | + + documented in this encounter"
--- OUTSIDE RECORDS SUMMARY | ~2019-10-30 | XMS | Encounter Summary ---
Demographics + + + | Address | [address] | | | [place] [address] | + + + | Home Phone | | + + + | Preferred Language | Unknown | + + + | Marital Status | Single | + + + | Latter-Day Affiliation | 1013 | + + + | Race | Unknown | + + + | Ethnic Group | Unknown | + + + Author + + + | Author | [facility] | | | and Johnana | + + + | Organization | [facility] | | [...] | | | | | [place] [address] | | + + + + + | Ab Romykia | ECON | Unknown | | + + + + + Care Team Providers + +------+ + | Care Scrip Clerk Name | Role | Phone | + +------+ + PCP | Unavailable | + +------+ + Encounter Details +--------+ + + + + | Date | Type | Department | Care Team | Description | +--------+ + + + + | 05/11/ | Hospital | [facility] | IzabellaPrecious | | | 2008 | Encounter | MED CTR EMERGENCY | MD Rebecca [address] | | | | | CENTER [address] | [place], | | | | | [place], [place] | [place] [address] | | | | | [address] | [phone] | | | | | [phone] | | | +--------+ + + + [...]
--- OUTSIDE RECORDS SUMMARY | ~2019-10-30 | XMS | Encounter Summary ---
Demographics + + + | Address | [address] | | | [place] [address] | + + + | Home Phone | | + + + | Preferred Language | Unknown | + + + | Marital Status | Single | + + + | Taoism Affiliation | 1013 | + + + | Race | Unknown | + + + | Ethnic Group | Unknown | + + + Author + + + | Author | [facility] | | | and Johnana | + + + | Organization | [facility] | | [...] | | | | | [place] [address] | | + + + + + | Ab Romykia | ECON | Unknown | | + + + + + Care Team Providers + +------+ + | Care Dispatcher Service Chief Name | Role | Phone | + +------+ + PCP | Unavailable | + +------+ + Encounter Details +--------+ + + + + | Date | Type | Department | Care Team | Description | +--------+ + + + + | 04/14/ | Hospital | [facility] | | | | 2008 | Encounter | MED CTR EMERGENCY | | | | | | CENTER [address] | | | | | | [place], [place] | | | | | | [address] | | | | | | [phone] | | | +--------+ + + + [...]
--- OUTSIDE RECORDS SUMMARY | ~2019-10-30 | XMS | Encounter Summary ---
Demographics + + + | Address | [address] | | | [place] [address] | + + + | Home Phone | | + + + | Preferred Language | Unknown | + + + | Marital Status | Single | + + + | Taoist Affiliation | 1013 | + + + | Race | Unknown | + + + | Ethnic Group | Unknown | + + + Author + + + | Author | [facility] | | | and Johnana | + + + | Organization | [facility] | | | [...] | | | | | [place] [address] | | + + + + + | Ab Bunch | ECON | Unknown | | + + + + + Care Team Providers + +------+ + | Care Patcher Wood Welder Name | Role | Phone | + [...] | | | | | | | Right lower | | Princess, | | | | | quadrant | | Nikko King, | | | | | pain Right | | DO [address] | | | | | lower | | [address] | | | | | quadrant | | [place], | | | | | pain | | [place] [address] | | | | | [R10.31] | | Phone: | | | | | Procedures | | [phone] | | | | | [place] | | Fax: | | | | | LAP,DIAGNOST | | [phone] | | | | | IC ABDOMEN | | | +--------+--------+ + + + + Encounter Details +--------+---------+ + + + | Date | Type | Department | Care Team | Description | +--------+---------+ + + + | 06/16/ | Surgery | [facility] | Nikko Sánchez | Diagnostic | | 2016 | | MED CTR OR INTRA OP | DO Fernando [address] | Laparoscopy | | | | [address] | [address] [place] | laparoscopic ovarian | | | | [place], [place] | [place] [address] | drilling,right | | | | [address] | [phone] | | | | | [phone] | | | +--------+---------+ + + + [...] + + + | Blood Pressure | 106/50 | 06/16/2015 10:30 AM | | | | | PST | | + + + + + | Pulse | 87 | 06/16/2015 10:15 AM | | | | | PST | | + + + + + | Temperature | 37 C (98.6 F) | 06/16/2015 8:41 AM | | | | | PST | | + + + + + | Respiratory Rate | 15 | 06/16/2015 10:15 AM | | | | | PST | | + + + + + | Oxygen Saturation | 99% | 06/16/2015 10:15 AM | | | | | PST | | + + + + + | Inhaled Oxygen | - | - | | | Concentration | | | | + + + + + | Weight | 54.4 kg (120 lb) | 06/16/2015 6:00 AM | | | | | PST | | + + + + + | Height | 162.6 cm (5' 4.02") | 06/16/2015 6:00 AM | | | | | PST | | + + + + + | Body Mass Index | 20.59 | 06/16/2015 6:00 AM | | | | | PST | | + + + + + documented in this encounter Medications at Time [...] tablets by | 30 | 0 | 06/16/19 | | | HYDROcodone-acetamin | mouth every [...] | + +--------+ + + + | LAPAROSCOPY | | 06/16/2015 | Right lower | | | DIAGNOSTIC | | 7:31 AM | quadrant pain | | | | | PST | | | + +--------+ + + + | POCT TEST, | Routin | 06/16/2015 | | Results for this | | URINE, QUAL | e | 6:47 AM | | procedure are in the | | | | PST | | results section. | + +--------+ + + + documented in this encounter Results POCT Test, Urine, Qual (06/16/2015 6:47 AM PST) + + + + + + [...] | 1.010, 1.015, | | | | [place], | | 1.020, 1.025 | | | | POC | | | | | + + + + + + | Internal QC | Acceptable | | | | + + + + + + | Lot Number | [id number] | | | | + + + + + + | Expiration | 2016- | | | | | Date | | | | | + + + + + + + + | Specimen | + + | Urine specimen | | (specimen) | + + documented in this encounter Visit Diagnoses + + | Diagnosis | + + | Right lower quadrant pain Abdominal pain, right lower quadrant | + + documented in this encounter Administered Medications + +--------+ +--------+------+ + | Medication Order | MAR | Action | Dose | Rate | Site | | | Action | Date | | | | + +--------+ +--------+------+ + | bupivacaine 0.25%-EPINEPHrine | Given | 06/16/19 | 20 mLs | | Abdomina | | 1:200,000 injection PRN, | | 16 8:25 | | | l Tissue | | Starting 06/16/15 at 0825, | | AM PST | | | | | Intra-op | | | | | | + +--------+ +--------+------+ + +---+---+ | | | +---+---+ + +-------+ +--------+---+---+ | fentaNYL injection 25-50 mcg | Given | 06/16/19 | 50 mcg | | | | 25-50 mcg, Intravenous, EVERY 5 | | 16 9:27 | | | | | MIN PRN, Pain, Starting Mon | | AM PST | | | | | 06/16/15 at 0828, Maximum total | | | | | | | dose 250 mcg. PACU IV Narcotic | | | | | | | Priority: Only use fentanyl for | | | | | | | immediate post-op pain (one dose) | | | | | | | or breakthrough pain when any | | | | | | | other IV narcotics ordered have | | | | | | | been ineffective (if ordered). | | | | | | | If both morphine and | | | | | | | hydromorphone are ordered, use | | | | | | | morphine first, and use | | | | | | | hydromporphone if morphine | | | | | | | ineffective., Recovery/Phase I | | | | | | + +-------+ +--------+---+---+ +-------+ +--------+---+---+ | Given | 06/16/19 | 25 mcg | | | | | 16 9:15 | | | | | | AM PST | | | | +-------+ +--------+---+---+ | Given | 06/16/19 | 25 mcg | | | | | 16 9:06 | | | | | | AM PST | | | | +-------+ +--------+---+---+ +---+---+ | | | +---+---+ + +-------+ +---------+---+---+ | HYDROcodone-acetaminophen | Given | 06/16/19 | 2 | | | | (NORCO) 5-325 mg per tablet 1-2 | | 16 10:21 | tablets | | | | tablet 1-2 tablet, Oral, EVERY 4 | | AM PST | | | | | HOURS PRN, Pain, Starting Mon | | | | | | | 06/16/15 at 0924, If ineffective | | | | | | | use [place] 10/325 if ordered. If | | | | | | | not tolerated, use Percocet then | | | | | | | Oxycodone if ordered., | | | | | | | Post-op/Phase II | | | | | | + +-------+ +---------+---+---+ +---+---+ | | | +---+---+ + +-------+ +---------+---+---+ | HYDROmorphone (DILAUDID) | Given | 06/16/19 | 0.25 mg | | | | injection 0.2-0.5 mg 0.2-0.5 mg, | | 16 9:51 | | | | | Intravenous, EVERY 5 MIN PRN, | | AM PST | | | | | Pain, Starting 06/16/15 at | | | | | | | 0828, Maximum total dose 4 mg. | | [...] | | | | + +-------+ +---------+---+---+ +-------+ +--------+---+---+ | Given | 06/16/19 | 0.5 mg | | | | | 16 9:33 | | | | | | AM PST | | | | +-------+ +--------+---+---+ +---+---+ | | | +---+---+ + +-------+ +-------+---+---+ | ketorolac (TORADOL) injection | Given | 06/16/19 | 30 mg | | | | 30 mg 30 mg, Intravenous, EVERY | | 16 9:45 | | | | | 6 HOURS (4 times per day), First | | AM PST | | | | | dose on 06/16/15 at 0945, For | | | | | | | 48 hours, If urine output is less | | | | | | | than 240mL/8 hours (30 mL/hr) or | | | | | | | if signs of bleeding, contact MD | | | | | | | and hold ketorolac., | | | | | | | Post-op/Phase II | | | | | | + +-------+ +-------+---+---+ +---+---+ | | | +---+---+ + +---------+ +---+-------+---+ | lactated ringers (LR) infusion | New Bag | 06/16/19 | | 125 | | | at 125 mL/hr, Intravenous, | | 16 6:39 | | mL/hr | | | CONTINUOUS, Starting 06/16/15 | | AM PST | | | | | at 0645, Pre-op | | | | | | + +---------+ +---+-------+---+ +---+---+ | | | +---+---+ + +-------+ +------+---+---+ | ondansetron (ZOFRAN) injection | Given | 06/16/19 | 4 mg | | | | 4 mg 4 mg, Intravenous, ONCE | | 16 10:27 | | | | | PRN, Nausea, Starting 06/16/15 | | AM PST | | | | | at 0828, For 1 dose, | | | | | | | Recovery/Phase I | | | | | | + +-------+ +------+---+---+ +---+---+ | | | +---+---+ documented in this encounter
--- OUTSIDE RECORDS SUMMARY | ~2019-10-30 | XMS | Encounter Summary ---
Demographics + + + | Address | [address] | | | [place] [address] | + + + | Home Phone | | + + + | Preferred Language | Unknown | + + + | Marital Status | Single | + + + | Taoism Affiliation | 1013 | + + + | Race | Unknown | + + + | Ethnic Group | Unknown | + + + Author + + + | Author | [facility] | | | and Johnana | + + + | Organization | [facility] | | [...] | | | | | [place] [address] | | + + + + + | Ab Romykia | ECON | Unknown | | + + + + + Care Team Providers + +------+ + | Care Bushel Worker Name | Role | Phone | + +------+ + PCP | Unavailable | + +------+ + Encounter Details +--------+ + + + + | Date | Type | Department | Care Team | Description | +--------+ + + + + | 01/18/ | Hospital | [facility] | Mukesh Coppola | | | 2011 | Encounter | MED CTR EMERGENCY | MD [place] [address] | | | | | CENTER [address] | [address] [place] | | | | | [place], [place] | [place] [address] | | | | | [address] | [phone] | | | | | [phone] | | | +--------+ + + + [...] + + | US PELVIS W | | 01/19/2012 | | Results for this | | TRANSVAGINAL | | 2:00 AM | | procedure are in the | | | | PDT | | results section. | + +--------+ + + + documented in this encounter Results US Pelvis W Transvaginal (01/19/2012 2:00 AM PDT) + + | Specimen | + + | | + + + + + | Narrative | Performed At | + + + | [facility] Diagnostic Imaging Department | [facility] | | [address] [facility] | [facility] | | TRANSABDOMINAL AND TRANSVAGINAL | DIAG IMG | | PELVIC ULTRASOUND, 01/19/2012 CLINICAL HISTORY: PELVIC PAIN AND | | | OVARIAN CYSTS, EVALUATE FOR TORSION. COMPARISON: Pelvic | | | ultrasound 01/14/2012 and 11/19/2011. TRANSABDOMINAL FINDINGS: | | | The uterus is anteverted and grossly unremarkable allowing for | | | incomplete b ladder distention. No endometrial fluid collection is | | | appreciated. An anechoic cystic structure is again noted at the | | | level of the right ovary, and a smaller cystic structure is again | | | visible within t he left ovary. No free pelvic fluid is evident. | | | TRANSVAGINAL FINDINGS: Transvaginal scanning is performed to | | | better characterize the uterus and adne xa. The uterus measures 5.8 | | | x 4.1 x 2.7 cm in size and demonstrates an endometrial thickness of 2 | | | mm . Trace linear fluid is now evident within the fundal | | | endometrial canal. No myometrial abnormality is evident. The | | | left ovary measures 3.5 x 2.4 x 2.0 cm and contains a 9 mm anechoic | | | cyst, which is s lightly smaller compared with the study of | | | 01/14/2012. The right ovary measures 4.2 x 3.8 x 3.0 cm a nd | | | contains an anechoic cyst measuring up to approximately 3.8 cm in | | | maximal dimension, which is jose lar to the previous study. Both | | | ovaries demonstrate normal stromal blood flow with duplex interrogat | | | ion, without evidence of torsion. Trace anechoic free fluid is noted | | | in the right adnexal region. IMPRESSION: 1. STABLE 3.8 CM | | | ANECHOIC RIGHT OVARIAN CYST AND TRACE ANECHOIC FREE PELVIC FLUID | | | COMPARED WITH ULTR ASOUND OF 01/14/2012. 2. MINIMAL DECREASE IN | | | SIZE OF A 9 MM ANECHOIC LEFT OVARIAN CYST. 3. NO EVIDENCE OF | | | OVARIAN TORSION. COMMENT: Results of this study were | | | communicated to Dr. Coppola by the windows server administrator performing the st udy | | | on 01/19/2012. Dictated Date/Time: 01/19/2012 07:07 | | | Transcribed Date/Time: 01/19/2012 07:15 Feed Elevator Worker: | | | <Electronically Signed by Brad Cline MD> 01/19/12 0952 | | + + + + + | Procedure Note | + + | Brown Olmedo Conversion - 06/29/2013 5:56 PM [facility] | | Diagnostic Imaging Department [address] [facility] | | TRANSABDOMINAL AND TRANSVAGINAL PELVIC ULTRASOUND, | | 01/19/2012 CLINICAL HISTORY: PELVIC PAIN AND OVARIAN CYSTS, EVALUATE FOR TORSION. | | COMPARISON: Pelvic ultrasound 01/14/2012 and 11/19/2011. TRANSABDOMINAL FINDINGS: The | | uterus is anteverted and grossly unremarkable allowing for incomplete bladder | | distention. No endometrial fluid collection is appreciated. An anechoic cystic | | structure is again noted at the level of the right ovary, and a smaller cystic structure | | is again visible within the left ovary. No free pelvic fluid is evident. TRANSVAGINAL | | FINDINGS: Transvaginal scanning is performed to better characterize the uterus and | | adnexa. The uterus measures 5.8 x 4.1 x 2.7 cm in size and demonstrates an endometrial | | thickness of 2 mm. Trace linear fluid is now evident within the fundal endometrial | | canal. No myometrial abnormality is evident. The left ovary measures 3.5 x 2.4 x 2.0 | | cm and contains a 9 mm anechoic cyst, which is slightly smaller compared with the study | | of 01/14/2012. The right ovary measures 4.2 x 3.8 x 3.0 cm and contains an anechoic | | cyst measuring up to approximately 3.8 cm in maximal dimension, which is similar to the | | previous study. Both ovaries demonstrate normal stromal blood flow with duplex | | interrogation, without evidence of torsion. Trace anechoic free fluid is noted in the | | right adnexal region. IMPRESSION: 1. STABLE 3.8 CM ANECHOIC RIGHT OVARIAN CYST AND | | TRACE ANECHOIC FREE PELVIC FLUID COMPARED WITH ULTRASOUND OF 01/14/2012. 2. MINIMAL | | DECREASE IN SIZE OF A 9 MM ANECHOIC LEFT OVARIAN CYST. 3. NO EVIDENCE OF OVARIAN | | TORSION. COMMENT: Results of this study were communicated to Dr. Coppola by the | | windows server administrator performing the study on 01/19/2012. Dictated Date/Time: 01/19/2012 | | 07:07Transcribed Date/Time: 01/19/2012 07:15Transcriptionist: <Electronically | | Signed by Brad Cline MD> 01/19/12 0952 | | | |IMPRESSION: | |1. STABLE 3.8 CM ANECHOIC RIGHT OVARIAN CYST AND TRACE ANECHOIC FREE PELVIC FLUID COMPARED WITH ULTR | |ASOUND OF 01/14/2012. | | | |2. MINIMAL DECREASE IN SIZE OF A 9 MM ANECHOIC LEFT OVARIAN CYST. | | | |3. NO EVIDENCE OF OVARIAN TORSION. | | | |COMMENT: Results of this study were communicated to Dr. Coppola by the windows server administrator sae rodrigez the | |luz maria on 01/19/2012. | | | |Dictated Date/Time: 01/19/2012 07:07 | |Transcribed Date/Time: 01/19/2012 07:15 | |Feed Elevator Worker: | |<Electronically Signed by Brad Cline MD> 01/19/12 0952 | + + + +---------+ + + | Performing | Address | City/State/Zipcode | Phone Number | | Organization | | | | + +---------+ + + | [place] | | | | | [place] | | | | + +---------+ + + documented in this encounter Visit Diagnoses Not on filedocumented in this encounter"
--- OUTSIDE RECORDS SUMMARY | ~2019-10-30 | XMS | Encounter Summary ---
Demographics + + + | Address | [address] | | | [place] [address] | + + + | Home Phone | | + + + | Preferred Language | Unknown | + + + | Marital Status | Single | + + + | Mu-Ism Affiliation | 1013 | + + + | Race | Unknown | + + + | Ethnic Group | Unknown | + + + Author + + + | Author | [facility] | | | and Johnana | + + + | Organization | [facility] | | | [...] | | | | | [place] [address] | | + + + + + | Ab Bunch | ECON | Unknown | | + + + + + Care Team Providers + +------+ + | Care Veneer Measurer Name | Role | Phone | + +------+ + | Mike Fernández MD | PCP | | + +------+ + Encounter Details +--------+ + + + + | Date | Type | Department | Care Team | Description | +--------+ + + + + | 12/11/ | Hospital | [facility] | Billy Munoz, | | | 2012 | Encounter | MED CTR EMERGENCY | [place] [address] | | | | | [place] [address] | [place] | | | | | [place], [place] | [address] | | | | | [address] | | | | | | [phone] | | | +--------+ + + + [...] +---------+ + + | FLUoxetine | Take 10 mg by mouth | | 0 | | | | (PROZAC) 10 mg | Daily. | | | | 3 | | capsule | | | | [...]
--- OUTSIDE RECORDS SUMMARY | ~2019-10-30 | XMS | Encounter Summary ---
Demographics + + + | Address | [address] | | | [place] [address] | + + + | Home Phone | | + + + | Preferred Language | Unknown | + + + | Marital Status | Single | + + + | Alevism Affiliation | 1013 | + + + | Race | Unknown | + + + | Ethnic Group | Unknown | + + + Author + + + | Author | [facility] | | | and Johnana | + + + | Organization | [facility] | | [...] | | | | | [place] [address] | | + + + + + | Ab Bunch | ECON | Unknown | | + + + + + Care Team Providers + +------+ + | Care Control Technician Name | Role | Phone | [...] | | | pain | | [place] [address] | | | | | [R10.31] | | Phone: | | | | | Procedures | | [phone] | | | | | SD | | Fax: | | | | | LAP,DIAGNOST | | [phone] | | | | | IC ABDOMEN | | | +--------+--------+ + + + + Encounter Details +--------+ + + + + | Date | Type | Department | Care Team | Description | +--------+ + + + + | 06/16/ | Anesthesia | [facility] | Mike Antony | | | 2016 | Event | MED [facility] OR [facility]TRA OP | Alex ALLISON MD [address] | | | | | [address] | [address] [place] | | | | | [place], [place] | [place] [address] | | | | | [address] | [phone] | | | | | [phone] | | | +--------+ + + + + Anesthesia Record + + + + + | Procedure Name | Responsible | Anesthesia Start | Anesthesia Stop Time | | | Anesthesiologist | Time | | + + + + + | Diagnostic | Mike Antony | 06/16/15 0741 | 06/16/15 0842 | | Laparoscopy | MD ESTEFANY | | | | laparoscopic ovarian | | | | | drilling,right (N/A | | | | | Cervix) | | | | + + + + + +----+---+ + + | Da | T | Event | Comment | | te | i | | | | | m | | | | | e | | | +----+---+ + + | 01 | 0 | | | | /2 | 7 | | | | 5/ | 2 | | | | 20 | 0 | | | | 16 | | | | +----+---+ + + | | 0 | An Checkout | Pre-use anesthesia machine/equipment checkout. | | | 7 | | | | | 4 | | | | | 1 | | | +----+---+ + + | | 0 | An Start | Reassessment prior to anesthesia induction/procedure. | | | 7 | | | | | 4 | | | | | 1 | | | +----+---+ + + | | 0 | AN | Per surgeon request | | | 7 | Antibiotic | | | | 4 | declined | | | | 3 | | | +----+---+ + + | | 0 | an kaden now | | | | 7 | | | | | 4 | | | | | 4 | | | +----+---+ + + | | 0 | An Start | | | | 7 | Data | | | | 4 | | | | | 4 | | | +----+---+ + + | | 0 | Preoxygenat | | | | 7 | ed | | | | 4 | | | | | 5 | | | +----+---+ + + | | 0 | An | | | | 7 | Induction | | | | 4 | | | | | 7 | | | +----+---+ + + | | 0 | An | | | | 7 | Intubation | | | | 4 | | | | | 8 | | | +----+---+ + + | | 0 | AN Bite | | | | 7 | Block | | | | 5 | | | | | 0 | | | +----+---+ + + | | 0 | [place] | | | | 7 | 43-degrees | | | | 5 | | | | | 1 | | | +----+---+ + + | | 0 | First | | | | 8 | Inc/Proc St | | | | 0 | | | | | 5 | | | +----+---+ + + | | 0 | [place] off | | | | 8 | | | | | 3 | | | | | 7 | | | +----+---+ + + | | 0 | AN No | TOF 4/4 with sustained tetanus. | | | 8 | Residual | | | | 3 | NMB | | | | 7 | | | +----+---+ + + | | 0 | Extubated | | | | 8 | Awake | | | | 3 | | | | | 9 | | | +----+---+ + + | | 0 | An Stop | Patient handed off to recovery nurse. | | | 4 | | | | | 2 | | | +----+---+ + + +------+ | Meds | +------+ + + + | Name | Total | + + + | propofol | 140 mg | + + + | propofol | 320 mg | + + + | lidocaine 1% | 50 mg | + + + | cisatracurium | 6 mg | + + + | ketamine | 50 mg | + + + | dexmedetomidine (Bolus) | 50 mcg | + + + | midazolam | 2 mg | + + + | ondansetron | 4 mg | + + + | dexamethasone | 10 mg | + + + | neostigmine | 3 mg | + + + | glycopyrrolate | 600 mcg | + + + | LR (Infusion) | 1,300 mL | + + + + + | Name | + + | N2O Flow Rate (L/Min) | + + | O2 Flow Rate (L/Min) | + + | Insp O2 | + + | Exp SEV | + + | Exp ESPERANZA | + + | Air Flow Rate (L/Min) | + + + + | No blood administrations on file. | + + +--------+ + + + | Type | Details | Placement | Removal | +--------+ + + + | Periph | 06/16/15; 617; 20 gauge, 1 05/26 | 06/16/1518 by | 06/16/151120 by | | rose | in length; intradermal injection, | Ping Diana, | Ping Diana, | | IV | tolerated well; 06/16/15; 1121 | RN | RN | +--------+ + + + | Airway | Placement Date: 06/16/15; | 06/16/15 0748 by | 06/16/15 0839 by | | | Placement Time: 0748; Mask | Mike Antony | Mike Antony | | | Ventilation: EZ; Airway Grade: I; | II, MD | II, MD | | | Successful Technique: Mac; | | | | | Laryngoscope Blade Size: 3; | | | | | Attempts: 1; Airway Type: | | | | | endotracheal, cuffed; Size: 6.5; | | | | | Size: 6.5; Position: Right; | | | | | Airway Tube Secured At: 22; | | | | | Trauma: none; Placement Check: | | | | | verified by capnography; | | | | | Placement Check: breath sounds | | | | | equal bilaterally, exhaled CO2 | | | | | detection device; Removal Date: | | | | | 06/16/15; Removal Time: 0839 | | | +--------+ + + + | Read | 06/16/15; 0835; abdomen; | 06/16/15 0835 by | 03/11/16 1635 by | | only - | 03/11/16; 163 | Ping Vázquez, | Leslye Stovall RN | | | | RN | | | Shelly | | | | | on | | | | +--------+ + + + documented in this encounter Social History + + + +--------+------+ | [...] Visit Diagnoses Not on filedocumented in this encounter Administered Medications + +--------+ +------+------+------+ | Medication Order | MAR | Action | Dose | Rate | Site | | | Action | Date | | | | + +--------+ +------+------+------+ | cisatracurium (NIMBEX) | Given | 06/16/19 | 6 mg | | | | injection Intravenous, PRN, | | 16 7:47 | | | | | Ventilator Dyssynchrony, Starting | | AM PST | | | | | 06/16/15 at 0747, Anesthesia | | | | | | | Intra-op | | | | | | + +--------+ +------+------+------+ +---+---+ | | | +---+---+ + +-------+ +-------+---+---+ | dexamethasone (DECADRON) 10 | Given | 06/16/19 | 10 mg | | | | mg/mL injection Intravenous, | | 16 7:43 | | | | | PRN, Starting 06/16/15 at | | AM PST | | | | | 0743, Anesthesia Intra-op | | | | | | + +-------+ +-------+---+---+ +---+---+ | | | +---+---+ + +-------+ +--------+---+---+ | dexmedetomidine (PRECEDEX) in | Given | 06/16/19 | 40 mcg | | | | sodium chloride bolus infusion | | 16 7:57 | | | | | Intravenous, PRN, Starting Mon | | AM PST | | | | | 06/16/15 at 0747, Anesthesia | | | | | | | Intra-op | | | | | | + +-------+ +--------+---+---+ +-------+ +--------+---+---+ | Given | 06/16/19 | 10 mcg | | | | | 16 7:47 | | | | | | AM PST | | | | +-------+ +--------+---+---+ +---+---+ | | | +---+---+ + +-------+ +---------+---+---+ | glycopyrrolate (RUBI) | Given | 06/16/19 | 600 mcg | | | | injection Intravenous, PRN, | | 16 8:27 | | | | | Secretions, Starting Tue06/16/15 | | AM PST | | | | | at 0827, Anesthesia Intra-op | | | | | | + +-------+ +---------+---+---+ +---+---+ | | | +---+---+ + +-------+ +-------+---+---+ | ketamine 50 mg/mL injection | Given | 06/16/19 | 50 mg | | | | PRN, Starting Tue06/16/15 at | | 16 7:57 | | | | | 0757, Anesthesia Intra-op | | AM PST | | | | + +-------+ +-------+---+---+ +---+---+ | | | +---+---+ + +---------+ +---+---+---+ | lactated ringers (LR) infusion | New Bag | 06/16/19 | | | | | Intravenous, CONTINUOUS PRN, | | 16 7:41 | | | | | Starting 06/16/15 at 0741, | | AM PST | | | | | Anesthesia Intra-op | | | | | | + +---------+ +---+---+---+ +---+---+ | | | +---+---+ + +-------+ +-------+---+---+ | lidocaine (PF) 1% injection | Given | 06/16/19 | 50 mg | | | | Intravenous, PRN, Starting Mon | | 16 7:47 | | | | | 06/16/15 at 0747, Anesthesia | | AM PST | | | | | Intra-op | | | | | | + +-------+ +-------+---+---+ +---+---+ | | | +---+---+ + +-------+ +------+---+---+ | midazolam (VERSED) 1 mg/mL | Given | 06/16/19 | 2 mg | | | | injection Intravenous, PRN, | | 16 7:42 | | | | | Anxiety, Starting 06/16/15 at | | AM PST | | | | | 0742, Anesthesia Intra-op | | | | | | + +-------+ +------+---+---+ +---+---+ | | | +---+---+ + +-------+ +------+---+---+ | neostigmine (BLOXIVERZ) 1 mg/mL | Given | 06/16/19 | 3 mg | | | | injection Intravenous, PRN, | | 16 8:27 | | | | | Starting 06/16/15 at 0827, | | AM PST | | | | | Anesthesia Intra-op | | | | | | + +-------+ +------+---+---+ +---+---+ | | | +---+---+ + +-------+ +------+---+---+ | ondansetron (ZOFRAN) injection | Given | 06/16/19 | 4 mg | | | | Intravenous, PRN, Nausea, | | 16 7:42 | | | | | Vomiting, Starting 06/16/15 at | | AM PST | | | | | 0742, Anesthesia Intra-op | | | | | | + +-------+ +------+---+---+ +---+---+ | | | +---+---+ + +-------+ +--------+---+---+ | propofol (DIPRIVAN) injection | Given | 06/16/19 | 100 mg | | | | Intravenous, PRN, Starting Mon | | 16 7:47 | | | | | 06/16/15 at 0745, Anesthesia | | AM PST | | | | | Intra-op | | | | | | + +-------+ +--------+---+---+ +-------+ +-------+---+---+ | Given | 06/16/19 | 20 mg | | | | | 16 7:46 | | | | | | AM PST | | | | +-------+ +-------+---+---+ | Given | 06/16/19 | 20 mg | | | | | 16 7:45 | | | | | | AM PST | | | | +-------+ +-------+---+---+ +---+---+ | | | +---+---+ + +---------+ +--------+ +---+ | propofol (DIPRIVAN) injection | New Bag | 06/16/19 | 10 | 60 mL/hr | | | Intravenous, CONTINUOUS PRN, | | 16 7:57 | mg/min | | | | Starting 06/16/15 at 0757, | | AM PST | | | | | Anesthesia Intra-op | | | | | | + +---------+ +--------+ +---+ +---+---+ | | | +---+---+ documented in this encounter"
--- OUTSIDE RECORDS SUMMARY | ~2019-10-30 | XMS | Encounter Summary ---
Demographics + + + | Address | [address] | | | [place] [address] | + + + | Home Phone [...] + + + + + | Isma oHgan | ECON | [address] | | | | | [place] [address] | | + + + + + | Ab Romykia | ECON | Unknown | | + + + + + Care Team Providers + +------+ + | Care Moss Bleacher Name | Role | Phone | + +------+ + PCP | Unavailable | + +------+ + Encounter Details +--------+ + + + + | Date | Type | Department | Care Team | Description | +--------+ + + + + | 07/22/ | Hospital | [facility] | | | | 2010 - | Encounter | [facility] | | | | | | [facility] [address] | | | | 07/24/ | | [place], | | | | 2010 | | [place] [address] | | | | | | [phone] | | | +--------+ + + + [...] | + +--------+ + + + | HEMOGLOBIN | Routin | 07/23/2010 | | Results for this | | | e | 6:40 AM | | procedure are in the | | | | PST | | results section. | + +--------+ + + + | HEMATOCRIT | Routin | 07/23/2010 | | Results for this | | | e | 6:40 AM | | procedure are in the | | | | PST | | results section. | + +--------+ + + + | UA, MICROSCOPIC, | Routin | 07/22/2010 | | Results for this | | REFLEX | e | 6:00 AM | | procedure are in the | | | | PST | | results section. | + +--------+ + + + | URINALYSIS, REFLEX | Routin | 07/22/2010 | | Results for this | | MICROSCOPIC AND/OR | e | 6:00 AM | | procedure are in the | | CULTURE | | PST | | results section. | + +--------+ + + + documented in this encounter Results Hematocrit (07/23/2010 6:40 AM PST) + + + + + + | Component | Value | Ref Range | Performed | Pathologist | | | | | At | Signature | + + + + + + | Hematocrit | 31.0 (L) | 34.0 - 47.0 % | [...] + | [facility] | [address] | [place], [place] | [phone] | | [facility] | | [address] | | | - LABORATORY | | | | + + + + + | [facility] | [address] | [place], [place] | | | [facility] | | [address] | | | - LABORATORY | | | | + + + + + Hemoglobin (07/23/2010 6:40 AM PST) + + + + + + | Component | Value | Ref Range | Performed | Pathologist | | | | | At | Signature | + + + + + + | Hemoglobin | 10.3 (L) | 11.5 - 16.0 | [facility] | | | | | gm/dL | [facility] | | | | [...] [address] | [place] | [phone] | | [facility] | | [address] | | | - LABORATORY | | | | + + + + + | [facility] | [address] | [place], [place] | | | [facility] | | [address], [facility] | | | - LABORATORY | | | | + + + + + UA, Microscopic, Reflex (07/22/2010 6:00 AM PST) + + + + + + | Component | Value | Ref Range | Performed | Pathologist | | | | | At | Signature | + + + + + + | White Blood | 10-20 | 0 - 1 /hpf | [facility] | | | Cells, | | | [facility] | | | Urine | | | MEDICAL | | | | | | CENTER - | | | | | | LABORATORY | | + + + + + + | Red Blood | 2-4 | 0 - 4 /hpf | [facility] | | | Cells, | | | [facility] | | | Urine | | | MEDICAL | | | | | | CENTER - | | | | | | LABORATORY | | + + + + + + | Squamous | MANY | FEW /hps | [facility] | | | Epithelial | | | [facility] | | | Cells, | | | MEDICAL | | | Urine | | | CENTER - | | | | | | LABORATORY | | + + + + + + | Bacteria, | MODERATE | NONE /hpf | [facility] | | | Urine | | | [facility] | | | | | | MEDICAL | | | | | | CENTER - | | | | | | LABORATORY | | + + + + + + | Amorphous | SLIGHT | /hpf | [facility] | | | Crystals, | | | [facility] | | | Urine | | | MEDICAL | | | | | | CENTER - | | | | | | LABORATORY | | + + + + + + | Culture | YESComment: REFLEXED TO | | [facility] | | | Indicated | URINE CULTURE. | | [facility] | | | [...] [address] | [place] | [phone] | | [facility] | | [address] | | | - LABORATORY | | | | + + + + + | [facility] | [address] | [place] | | | [facility] | | [address] | | | - LABORATORY | | | | + + + + + Urinalysis, Reflex Microscopic and/or Culture (07/22/2010 6:00 AM PST) + + + + + [...] + + + + | Clarity | TURBID | | [facility] | | | | [...] + + + + | Specific | 1.010 | 1.001 - 1.030 | [facility] | | | [place], | | | [facility] | | | Urine | | | MEDICAL | | | | | | CENTER - | | | | | | LABORATORY | | + + + + + + | Blood, | LARGE | NEGATIVE | [facility] | | | [...] + + + + | Leukocyte | TRACE | NEGATIVE | [facility] | | | Ester[place], | | | [facility] | | | Urine | | | MEDICAL | | | | | | CENTER - | | | | | | LABORATORY | | + + + + + + | MICROSCOPIC | YES | | [facility] | | | ? | | | [facility] | | [...] + | [facility] | [address] | [place], [place] | [phone] | | [facility] | | [address] | | | - LABORATORY | | | | + + + + + | [facility] | [address] | [place] | | | [facility] | | [address] | | | - LABORATORY | | | | + + + + + documented in this encounter Visit Diagnoses Not on filedocumented in this encounter"
--- OUTSIDE RECORDS SUMMARY | ~2019-10-30 | XMS | Encounter Summary ---
Demographics + + + | Address | [address] | | | [place] [address] | + + + | Home Phone | | + + + | Preferred Language | Unknown | + + + | Marital Status | Single | + + + | Pentecostal Affiliation | 1013 | + + + | Race | Unknown | + + + | Ethnic Group | Unknown | + + + Author + + + | Author | [facility] | | | and [place] | + + + | Organization | [facility] | | | [...] | | | | | [place] [address] | | + + + + + | Ab Romykia | ECON | Unknown | | + + + + + Care Team Providers + +------+ + | Care Ingot Buggy Operator Name | Role | Phone | [...] + | 07/25/ | Telephone | [facility] | Pj Abdi, | ER Follow-up | | 2018 | | [facility] | [address] | | | | | [address] | [place] | | | | | [place] | [address] | | | | | [address] | | | | | | [phone] | | | +--------+ + + + [...]
--- OUTSIDE RECORDS SUMMARY | ~2019-10-30 | XMS | Encounter Summary ---
Demographics + + + | Address | [address] | | | [place] [address] | + + + | Home Phone | | + + + | Preferred Language | Unknown | + + + | Marital Status | Single | + + + | Congregation Affiliation | 1013 | + + + | Race | Unknown | + + + | Ethnic Group | Unknown | + + + Author + + + | Author | [facility] | | | and Johnana | + + + | Organization | [facility] | | | and [...] | | | | | [place] [address] | | + + + + + | Ab Bunch | ECON | Unknown | | + + + + + Care Team Providers + +------+ + | Care Meter/Relay Craftsman Name | Role | Phone | + [...] | +--------+ + + + + | 03/11/ | [facility] | [facility] | Nikko Sánchez | | | 2016 | Encounter | MED CTR OR INTRA OP | DO Fernando [address] | | | | [address] | [address] [place] | | | | | [place] | [place], [place] [address] | | | | | [address] | [phone] | | | | | [phone] | | | +--------+ + + + [...] or shortness of breath Dizziness or fainting [id number] [employer]. [address] [place] [address], [place] [address]. All [facility] ts reserved. This information is not intended [...] fallopian tube left. How to say it [id number] Why unilateral salpingo-oophorectomy is done This procedure [...] of unilateral salpingo-oophorectomy Stomach cancer Bleeding Infection [id number] [employer] [facility]. [address] [place] [address]. All righ ts reserved. This information is [...] | 1.010, 1.015, | | | | [place], | | 1.020, 1.025 | | | [...] Clinical correlation | | | is needed. TJB:[facility]:C2NR GROSS DESCRIPTION: The specimen is [...] excrescences or mass-like lesions within the cyst. Claim Manager | | | sections of ovary and fallopian tube are submitted in cassettes | | | (A1-A2). CLR:[facility] MICROSCOPIC EXAMINATION: Histologic sections of | | | all submitted blocks are examined by light microscopy. These | | | findings, together with the gross examination, support the pathologic | | | diagnosis. PERFORMING LABORATORY: Tissue processing and slide | | | preparation were performed by [facility], [address] [place] [address], | | | [address], [place] [address] (Chemical Process Engineer: Rafa Wing | | | Kb; CLIA#: [id number]). Professional interpretation was performed | | | by [facility], [address] [place] [address], [address], [place], [place] | | | [address] (Chemical Process Engineer: Rafa Wing M.D.; CLIA#: [id number]). | | | Diagnostician: Josh Garcia MD Pathologist Electronically | | | Signed 03/12/2016 | | + + + + +---------+ + + | Performing | Address | City/State[facility] | Phone Number | | Organization | | | | + +---------+ + + | [facility] | | | | | [facility] | | | | + +---------+ + + documented in this encounter Visit Diagnoses Not on filedocumented in this encounter Administered Medications + +--------+ +--------+------+------+ | Medication Order | MAR | Action | Dose | Rate | Site | | | Action | Date | | | | + +--------+ +--------+------+------+ | fentaNYL (PF) injection 25-50 | Given [...] | | | | | + +--------+ +--------+------+------+ +-------+ +--------+---+---+ | Given | 03/11/20 | [...] 3:18 | | | | | Joanie 16 at 1515, For 1 dose, | | [...] | oxyCODONE (ROXICODONE) tablet | Given | 03/11/20 | 10 mg | | | | [...]
--- OUTSIDE RECORDS SUMMARY | ~2019-10-30 | XMS | Encounter Summary ---
Demographics + + + | Address | [address] | | | [place] [address] | + + + | Home Phone | | + + + | Preferred Language | Unknown | + + + | Marital Status | Single | + + + | Samaritan Affiliation | 1013 | + + + [...] | | | | | [place] [address] | | + + + + + | Ab Romykia | ECON | Unknown | | + + + + + Care Team Providers + +------+ + | Care Office Messenger Name | Role | Phone | + +------+ + PCP | Unavailable | + +------+ + Encounter Details +--------+ + + + + | Date | Type | Department | Care Team | Description | +--------+ + + + + | 01/06/ | Hospital | [facility] | Mukesh Coppola | | | 2011 - | Encounter | MED CTR EMERGENCY | MD [place] [address] | | | | [place] [address] | [address] [place] | | | 01/07/ | | [place], [place] | [place] [address] | | | 2011 | | [address] | [phone] | | | | | [phone] | | | +--------+ + + + [...] - 1.030 | [facility] | | | [place], | | | [facility] | | [...] [address] | [place] | [phone] | | [facility] | | [address] | | | - LABORATORY | | | | + + + + + | [address] | [address] | [place] | | | [facility] | | [address], [facility] [[email or web address]] | | | [...] + | [facility] | [address] | [place], [place] | [phone] | | [facility] | | [address] | | | - LABORATORY | | | | + + + + + | [facility] | [address] | [place], [place] | | | [facility] | | [address], [facility] [[email or web address]] | | | [...] [address] | [place] | [phone] | | [facility] | | [address] | | | - LABORATORY | | | | + + + + + | [facility] | [address] | [place] | | | [facility] | | [address] | | | - LABORATORY [...] + + | Performing | Address | City/State/[facility] | Phone Number | | Organization | | | | + + + + + | [facility] [facility] | [address] | [place] | [phone] | | [facility] | | [address] | | | - LABORATORY | | | | + + + + + | [facility] [facility] | [address] | [place] | | | [facility] | | [address], [place] | | | - LABORATORY | | | | + + + + + CT Abdomen Pelvis w Contrast (01/07/2012 9:11 PM PDT) + + | Specimen | + + | | + + + + + | Narrative | Performed At | + + + | [facility] Diagnostic Imaging Department | [facility] | | [address] [facility] | [facility] | | CT ABDOMEN AND PELVIS WITH [...] Transcribed Date/Time: 01/08/2012 10:15 | | | Director Of Product Management: ALYSON <Electronically Signed by Nikko Nickerson, | | | > 01/08/12 2274 | | + + + + + | Procedure Note | + + | Honorio, Rad Conversion - 06/29/2013 5:52 PM [facility] | | Diagnostic Imaging Department | | [address] [facility] | | | | | | | [...] | Transcribed Date/Time: 01/08/2012 10:15 | | Director Of Product Management: | | <Electronically Signed by Nikko Nickerson [...]
--- OUTSIDE RECORDS SUMMARY | ~2019-10-30 | XMS | Encounter Summary ---
Demographics + + + | Address | [address] | | | [place] [address] | + + + | Home Phone | | + + + | Preferred Language | Unknown | + + + | Marital Status | Single | + + + | Yazidi Affiliation | 1013 | + + + [...] | | | | | [place] [address] | | + + + + + | Ab Romykia | ECON | Unknown | | + + + + + Care Team Providers + +------+ + | Care Asphalt Spreader Name | Role | Phone | + +------+ + | Pj Abdi MD | PCP | | + +------+ + Reason for Visit + + + | Reason | Comments | + + + | Medication | | | Management | | + + + Encounter Details +--------+ + + + + | Date | Type | Department | Care Team | Description | +--------+ + + + + | 10/23/ | Telephone | [facility] | Sophie Carrillo, | Medication | | 2019 | | [facility] [place] | PharmD [address] | Management | | | | [address] | [facility], | | | | | [place] | [place] [address] | | | | | [address] | [phone] | | | | | [phone] | | | +--------+ + + + [...]
--- OUTSIDE RECORDS SUMMARY | ~2019-10-30 | XMS | Encounter Summary ---
Demographics + + + | Address | [address] | | | [place] [address] | + + + | Home Phone | | + + + | Preferred Language | Unknown | + + + | Marital Status | Single | + + + | Mandaeism Affiliation | 1013 | + + + | Race | Unknown | + + + | Ethnic Group | Unknown | + + + Author + + + | Author | [facility] | | | and [place] | + + + | Organization | [facility] | | | [...] | | | | | [place] [address] | | + + + + + | Ab Bunch | ECON | Unknown | | + + + + + Care Team Providers + +------+ + | Care Crystal Slicer Name | Role | Phone | + [...] | Specialty | Urology | Diagnoses | Abdi, | [facility] | | | Services | | Urinary | Pj Hutson MD | Urology [address] | | | Required | | retention | [address] | | | | | Procedures | [address] [place] | [place], | | | | | [birth year] | [place] | [place] [address] | | | | | [facility] | [address] | Phone: | | | | | | Phone: | [phone] | | | | | | [phone] | Fax: | | | | | | Fax: | [phone] | | | | | | [phone] | | +--------+ + + + + + Reason for Visit + + + | Reason | Comments | + + + | Anxiety | f/u | + + + | Depression | f/u | + + + Encounter Details +--------+---------+ + + + | Date | Type | Department | Care Team | Description | +--------+---------+ + + + | 11/30/ | Office | [facility] | Pj Abdi, | Anxiety with | | 2017 | Visit | [facility] | [address] | depression (Primary | | | | [address] | [place] | Dx); Panic disorder; | | | | [place] | [address] | Chronic pain | | | | [address] | | syndrome; DDD | | | | [phone] | | (degenerative disc | | | | | | disease), lumbar; | | | | | | Facet arthritis of | | | | | | lumbar region (HCC); | | | | | | Chronic right-sided | | | | | | low back pain with | | | | | | right-sided | | | | | | sciatica; Urinary | | | | | | retention; Nausea; | | | | | | Hematuria; Need for | | | | | | HPV vaccination | +--------+---------+ + + + Social History [...] + | Tobacco Cessation: Ready to Quit: No | + + + + +---------+ + [...] + + + | Blood Pressure | 100/60 | 11/30/2016 2:14 PM | | | | | PDT | | + + + + + | Pulse | 87 | 11/30/2016 2:14 PM | | | | | PDT | | + + + + + | Temperature | 36.8 C (98.2 F) | 11/30/2016 2:14 PM | | | | | PDT | | + + + + + | Respiratory Rate | 16 | 11/30/2016 2:14 PM | | | | | PDT | | + + + + + | Oxygen Saturation | 98% | 11/30/2016 2:14 PM | | | | | PDT | | + + + + + | Inhaled Oxygen | - | - | | | Concentration | | | | + + + + + | Weight | 55.8 kg (123 lb) | 11/30/2016 2:14 PM | | | | | PDT | | + + + + + | Height | 165.1 cm (5' 5") | 11/30/2016 2:14 PM | | | | | PDT | | + + + + + | Body Mass Index | 20.47 | 11/30/2016 2:14 PM | | | | | PDT | | + + + + + documented in this encounter Progress Notes Joann Baker Cert MA - 11/30/2016 2:15 PM PDTAfter obtaining informed consent, the im munization is given by FRANCISCO ARCOS. j Abdi MD - 11/30/2016 2:15 PM PDT Donna Camarena is a 21 y.o. female Chief Complaint: Anxiety (f/u) and Depression (f/u) HPI Depression/Anxiety: Patient is here for follow-up of Depression and anxiety. Currently taking Effexor 75 mg da abdoulaye for 1 week after new start Onset: Ongoing She has the following depression symptoms: anhedonia, depressed mood, fatigue, feelings of worthlessness/guilt, hopelessness, hypersomnia, insomnia and psychomotor agitation She denies the following symptoms: difficulty concentrating, impaired memory, psychomotor r etardation, recurrent thoughts of , suicidal attempt, suicidal thoughts with specific p travis and suicidal thoughts without plan She complains of the following anxiety symptoms: feeling nervous, anxious, not able to stop worrying, worrying too much, having trouble relaxing, being restless/hard to sit still and easily annoyed or irritable Symptoms are improving slightly Sleep Disturbance: Yes Are you currently in counseling: no Treatments Tried: Effexor 75 mg Have they been effective: No PHQ-9 score: 7 Previous: 17 SULMA-7 score: 7 Previous: 14 Urinary retention She reports she had a referral from the ED physician and missed her appointment in September She states she called the urology department and was told they would need to call her back to reschedule appointment Referral notes say there was no good number in the chart for her She states the current phone number listed in [employer] is a good number She reports having some new symptoms where she will have decreased urinary sensation and jaida moss has had a few accidents Back Pain She is rescheduled to sign her pain contract with Alessandra tomorrow PREVENTIVE CARE/PRIOR VISITS 1. Any recommendations from Health Maintenance: none Preventative Services TOPIC LAST DONE NEXT DUE Influenza Imm (Yearly) 01/21/2017 Cervical Cancer Screening (Pap Every 3 Years 21-64 ) 2014 Dtap/Tdap/Td Imm 08/23/2013 08/24/2023 Hpv Imm 11/30/2016 Pneumo Imm Ppsv23 11/02/2016 2. Any immunizations necessary: none Immunization History Administered Date(s) Administered HPV 9-VALENT RECOMB VACCINE IM 11/30/2016 HPV, QUADRIVALENT, 3 DOSE (ADOL/ADULT) 08/18/2011, 12/02/2011 PNEUMOCOCCAL POLYSACCHARIDE 23-VALENT (PPSV23) 11/02/2016 TDAP, (ADOL/ADULT) 08/23/2013 3. Has patient been involved in medical events/hospitalizations since their last visit: no Allergies Allergen Reactions Dimetapp Cold-Allergy Hives and Rash Meloxicam Hives, Anxiety and Rash Medications: Patient Reported Taking Dosage acetaminophen (TYLENOL) 500 mg tablet (Taking) Take 500 mg by mouth every 6 hours as need ed for Pain. aspirin 325 mg tablet (Taking) Take 325 mg by mouth 2 times daily. cyclobenzaprine (FLEXERIL) 10 mg tablet (Taking) Take 1 tablet by mouth 3 times daily as needed for Muscle spasms. Number of times this order has been changed since signin Order [facility]it [place] gabapentin (NEURONTIN) 300 mg capsule (Taking) Take 3 capsules by mouth Daily. Number of times this order has been changed since signin Order Audit [place] gabapentin (NEURONTIN) 300 mg capsule (Taking/Discontinued) 900 mg Daily. HYDROcodone-acetaminophen (NORCO) 5-325 mg per tablet (Taking/Discontinued) Take 1 tablet by mouth every 6 hours as needed for Pain. hydrOXYzine hydrochloride (ATARAX) 25 mg tablet (Taking) Take 2 tablets by mouth every 6 hours as needed for Itching or Anxiety. Number of times this order has been changed since signin Order [facility] [place] naproxen (NAPROSYN) 500 mg tablet (Taking) Take 500 mg by mouth 2 times daily (with break fast & dinner). ondansetron (ZOFRAN ODT) 4 mg disintegrating tablet (Taking) Take 1 tablet by mouth every 8 hours as needed for Nausea. Number of times this order has been changed since signin Order [facility]it [place] ondansetron (ZOFRAN ODT) 4 mg disintegrating tablet (Taking/Discontinued) Take 1 tablet b y mouth every 8 hours as needed for Nausea. Number of times this order has been changed since signin Order [facility] [place] propranolol (INDERAL) 10 mg tablet (Taking) Take 1 tablet by mouth 2 times daily. Number of times this order has been changed since signin Order [facility] [place] venlafaxine (EFFEXOR XR) 75 mg 24 hr capsule (Taking) Take 1 capsule by mouth Daily. Number of times this order has been changed since signin Order [facility] [place] venlafaxine (EFFEXOR XR) 75 mg 24 hr capsule (Taking/Discontinued) Take 1 capsule by mout h Daily. Number of times this order has been changed since signin Order [facility]it [place] Past Medical History She has a past [...] 2 Years of education: G.E.D. Occupational History [employer] UNEMPLOYED Social History Main Topics Smoking status: Current Every Day Smoker Packs/day: 0.50 Years: 7.00 Types: Cigarettes Start date: 09/17/2009 Smokeless tobacco: Never Used Alcohol use 0.0 oz/week Comment: rarely Drug use: No Sexual activity: Yes Partners: Male control/ protection: Yes Comment: Norplant Other Topics Concern None Social History Narrative None Review of Systems Constitutional: Negative for chills and fever. HENT: Negative for congestion and sore throat. Eyes: Negative for discharge and itching. Respiratory: Negative for cough and shortness of breath. Cardiovascular: Negative for chest pain and palpitations. Gastrointestinal: Positive for vomiting. Negative for abdominal pain, constipation and diar tammie. Genitourinary: Negative for difficulty urinating, dysuria, frequency and urgency. Musculoskeletal: Positive for back pain and neck pain. Skin: Negative for rash. Objective: Vitals: 11/30/16 1414 BP: 100/60 Pulse: 87 Resp: 16 Temp: 36.8 C (98.2 F) TempSrc: Tympanic SpO2: 98% Weight: 55.8 kg (123 lb) Height: 1.651 m (5' 5") Physical Exam Constitutional: She is oriented to person, place, and time. She appears well-developed and well-nourished. No distress. Appropriately dressed and groomed HENT: Head: Normocephalic and atraumatic. Eyes: Conjunctivae are normal. Musculoskeletal: She exhibits no edema. Neurological: She is alert and oriented to person, place, and time. Skin: Skin is warm and dry. Psychiatric: Her behavior is normal. Her mood appears anxious. She exhibits a depressed moo d. Nursing note and vitals reviewed. Results for orders placed or performed in visit on 11/30/16 Culture, Urine Result Value Ref Range Culture No growth to date POCT Urinalysis Dipstick Automated Result Value Ref Range Color, UA, POC Dark Yellow (A) Yellow, Light Yellow Clarity, UA, POC Clear Glucose, UA, POC Negative Negative Bilirubin, UA, POC Small (A) Negative Ketones, UA, POC Negative Negative, 100 mg/dL Specific [place], UA, POC 1.030 1.001 - 1.030 Blood, UA, POC Moderate (A) Negative pH, UA, POC 5.5 5.0, 6.0, 7.0, 8.0, 5.5, 6.5, 7.5 Protein, UA, POC 30 mg/dL (A) Negative Urobilinogen, UA, POC 0.2 0.2, Negative, Normal, < 0.2 mg/dL, 1 mg/dL, < 0.2 E.U./dl, 1.0 E.U./dL, 0.2 mg/dL Nitrite, UA, POC Negative Negative Leukocyte Esterase, UA, POC Negative Negative RED SUB UA ICTOTEST Negative REMARK Assessment: 1. Anxiety with depression venlafaxine (EFFEXOR XR) 75 mg 24 hr capsule 2. Panic disorder 3. Chronic pain syndrome gabapentin (NEURONTIN) 300 mg capsule HYDROcodone-acetaminophen (NORCO) 5-325 mg per tablet 4. DDD (degenerative disc disease), lumbar gabapentin (NEURONTIN) 300 mg capsule HYDROcodone-acetaminophen (NORCO) 5-325 mg per tablet 5. Facet arthritis of lumbar region (HCC) gabapentin (NEURONTIN) 300 mg capsule HYDROcodone-acetaminophen (NORCO) 5-325 mg per tablet 6. Chronic right-sided low back pain with right-sided sciatica gabapentin (NEURONTIN) 300 mg capsule HYDROcodone-acetaminophen (NORCO) 5-325 mg per tablet 7. Urinary retention * [facility] - AMB Referral 8. Nausea ondansetron (ZOFRAN ODT) 4 mg disintegrating tablet 9. Hematuria POCT Urinalysis Dipstick Automated Culture, Urine Urinalysis With Microscopic 10. Need for HPV vaccination HPV 9-Valent recomb vaccine IM [02794] Plans: 1. Anxiety with depression 2. Panic disorder Anxiety and depression scores reviewed with patient - Take medications as directed and call or return if you experience side effects - Counseling advised for depression that is not under good control or if new emotional stre ssors develop - return if symptoms worsen or if you are having thoughts of self harm - Use your social support network to help you as needed - Work into your schedule activities that are stress relieving and improve your emotional w ell being. - venlafaxine (EFFEXOR XR) 75 mg 24 hr capsule; Take 1 capsule by mouth Daily. Dispense: 3 0 capsule; Refill: 5 Medication risks and benefits were reviewed in detail today with the patient who expresses understanding. Pt will call or return with problems or side effects. 3. Chronic pain syndrome 4. DDD (degenerative disc disease), lumbar 5. Facet arthritis of lumbar region (HCC) 6. Chronic right-sided low back pain with right-sided sciatica Patient is scheduled with the PharmD Alessandra tomorrow to sign her pain contract Refilled Hydrocodone and Gabapentin as prescribed Call Dr Dejesus's office to check on injection status - gabapentin (NEURONTIN) 300 mg capsule; Take 3 capsules by mouth Daily. Dispense: 90 caps ule; Refill: 5 - HYDROcodone-acetaminophen (NORCO) 5-325 mg per tablet; Take 1 tablet by mouth every 6 roberto rs as needed for Pain (for severe break through pain). Dispense: 30 tablet; Refill: 0 Medication risks and benefits were reviewed in detail today with the patient who expresses understanding. Pt will call or return with problems or side effects. 7. Urinary retention Patient was scheduled with Urology and given appointment information Referral placed - * [facility] - AMB Referral 8. Nausea Refilled Zofran as prescribed - ondansetron (ZOFRAN ODT) 4 mg disintegrating tablet; Take 1 tablet by mouth every 8 hours as needed for Nausea. Dispense: 30 tablet; Refill: 1 Medication risks and benefits were reviewed in detail today with the patient who expresses understanding. Pt will call or return with problems or side effects. 9. Hematuria Question etiology. Sent urine to lab for microscopy. She has had negative urine culture. CT did not show any obvious renal stones. She will need to follow up with urology. - POCT Urinalysis Dipstick Automated - Culture, Urine - Urinalysis With Microscopic; Future 10. Need for HPV vaccination Immunization counseling discussed by myself and updated today - HPV 9-Valent recomb vaccine IM [74199] Follow-up: Return in about 6 weeks (around 01/11/2017) for Anxious Depression. I, Luis Carlos DUARTE MA, am acting as a scribe on behalf of, and in the presence of MD JOANN Agustin Cert MA 12/01/16 I, Dr. Pj Abdi, personally performed the services described in this documentation, as scribed in my presence and it is both accurate and complete. Pj Abdi MD 12/01/16 documented in this e ncounter Plan of Treatment + + +--------+ + + | Name | Type | Priori | Associated Diagnoses | Order Schedule | | | | ty | | | + + +--------+ + + | * [facility] | Routin | Urinary retention | Ordered: 11/30/2016 | | - AMB Referral | Referral | e | | | + + +--------+ + + documented as of this encounter Procedures + +--------+ + + + | Procedure Name | Priori | Date/Time | Associated Diagnosis | Comments | | | ty | | | | + +--------+ + + + | CULTURE, URINE | Routin | 11/30/2016 | Hematuria | Results for this | | | e | 6:42 PM | | procedure are in the | | | | PDT | | results section. | + +--------+ + + + | POCT URINALYSIS, | Routin | 11/30/2016 | Hematuria | Results for this | | AUTO WITH CONF | e | 6:34 PM | | procedure are in the [...] - 1.030 | [facility] | | | [place], | | | [facility] | | [...] Urine | | mg/dL, Negative | [facility] | | | | [...] | | | Oxalate | | | [facility] | | | Crystals, | | [...] + | [facility] | [address] | [place] | [phone] | | [facility] | | [address] | | | - LABORATORY | | | | + + + + + Culture, Urine (11/30/2016 6:42 PM PDT) + + + + + + | Component | Value | Ref Range | Performed | Pathologist | | | | | At | Signature | + + + + + + | Culture | >100,000 CFU/ml | | [facility] | | | | Lactobacillus | | . [facility] | | | | speciesComment: | | MEDICAL | | | | Lactobacilli may cause | | CENTER - | | | | UTI symptoms. Usually | | LABORATORY | | | | sensitive to ampicillin | | | | | | and erythromycin. | | | | | | Usually resistant to | | | | | | trimeth/sulfa. | | | | + + + [...] [address] | [place] | [phone] | | [facility] | | [address] | | | - LABORATORY | | | | + + + + + POCT Urinalysis Dipstick Automated (11/30/2016 6:34 PM PDT) + + + + + + | Component | Value | Ref Range | Performed | Pathologist | | | | | At | Signature | + + + + + + | Color, UA, | Dark Yellow (A) | Yellow, Light | | | | [...] + + + + | Bilirubin, | Small (A) | Negative | | | | UA, POC | | | | | + + + + + + | Ketones, | Negative | Negative, 100 | | | | UA, POC | | mg/dL | | | + + + + + + | Specific | 1.030 | 1.001 - 1.030 | | | | [place], | | | | | | UA, [...] | 30 mg/dL (A) | Negative | | | | UA, [...] + | Diagnosis | + + | Anxiety with depression - Primary | + + | Panic disorder Panic disorder without agoraphobia | + + | Chronic pain syndrome | + + | DDD (degenerative disc disease), lumbar Degeneration of lumbar or lumbosacral | | intervertebral disc | + + | Facet arthritis of lumbar region Lumbosacral spondylosis without myelopathy | + + | Chronic right-sided low back pain with right-sided sciatica | + + | Urinary retention Retention of urine, unspecified | + + | Nausea Nausea alone | + + | Hematuria Hematuria, unspecified | + + | Need for HPV vaccination Need for prophylactic vaccination and inoculation against | | other viral diseases | + + documented in this encounter
--- OUTSIDE RECORDS SUMMARY | ~2019-10-30 | XMS | Encounter Summary ---
Demographics + + + | Address | [address] | | | [place] [address] | + + + | Home Phone | | + + + | Preferred Language | Unknown | + + + | Marital Status | Single | + + + | Cheondoism Affiliation | 1013 | + + + | Race | Unknown | + + + | Ethnic Group | Unknown | + + + Author + + + | Author | [facility] | | | and [place] | + + + | Organization | [facility] | | | and [...] | | | | | [place] [address] | | + + + + + | Ab Romykia | ECON | Unknown | | + + + + + Care Team Providers + +------+ + | Care Online Publisher Name | Role | Phone | + [...] Description | +--------+--------+ + + + | 07/05/ | Refill | [facility] | Pj Abdi, | Medication Refill | | 2018 | | [facility] [place] | [address] | | | | | [address] | [place] | | | | | [place] | [address] | | | | | [address] | | | | | | [phone] | | | +--------+--------+ + + + [...]
--- OUTSIDE RECORDS SUMMARY | ~2019-10-30 | XMS | Encounter Summary ---
Demographics + + + | Address | [address] | | | [place] [address] | + + + | Home Phone | | + + + | Preferred Language | Unknown | + + + | Marital Status | Single | + + + | Restorationist Affiliation | 1013 | + + + [...] | | | | | [place] [address] | | + + + + + | Ab Romykia | ECON | Unknown | | + + + + + Care Team Providers + +------+ + | Care Art Professor Name | Role | Phone | + [...] Description | +--------+--------+ + + + | 10/17/ | Refill | [facility] | Pj Abdi, | Medication Refill | | 2018 | | [facility] [place] | [address] | | | | | [address] | [place] | | | | | [place] | [address] | | | | | [address] | | | | | | [phone] | | | +--------+--------+ + + + [...]
--- OUTSIDE RECORDS SUMMARY | ~2019-10-30 | XMS | Encounter Summary ---
Demographics + + + | Address | [address] | | | [place] [address] | + + + | Home Phone | | + + + | Preferred Language | Unknown | + + + | Marital Status | Single | + + + | Faith Affiliation | [id number] | + + + | Race | Unknown | + + + | Ethnic Group | Unknown | + + + Author + + + | Author | [facility] | | | and [place] | + + + | Organization | [facility] | | | and [place] | + + + | Address | Unknown | + + + | Phone | Unavailable | + + + Support + + + + + | Name | Relationship | Address | Phone | + + + + + | Isam Hogan | ECON | [address] | | | | | [place] [address] | | + + + + + | Ab Romykia | ECON | Unknown | | + + + + + Care Team Providers + +------+ + | Care Clothing Room Supervisor Name | Role | Phone | + +------+ + | Pj Abdi MD | PCP | | + +------+ + Reason for Visit + + + | Reason | Comments | + + + | Depression | | + + + | Anxiety | | + + + Encounter Details +--------+---------+ + + + | Date | Type | Department | Care Team | Description | +--------+---------+ + + + | 01/11/ | Office | [facility] | Pj Abdi, | Moderate episode of | | 2017 | Visit | [facility] | [address] | recurrent major | | | | [address] | [place] | depressive disorder | | | | [place] | [address] | ([facility]) (Primary Dx); | | | | [phone] | | Generalized anxiety | | | | [phone] | | disorder; Insomnia, | | | | | | unspecified type; | | | | | | Leg sore; Chronic | | | | | | pain syndrome; | | | | | | Chronic right-sided | | | | | | low back pain with | | | | | | right-sided sciatica | +--------+---------+ + + + Social History [...] + + + | Blood Pressure | 134/74 | 01/11/2017 9:58 AM | | | | | PDT | | + + + + + | Pulse | 107 | 01/11/2017 9:58 AM | | | | | PDT | | + + + + + | Temperature | 37 C (98.6 F) | 01/11/2017 9:58 AM | | | | | PDT | | + + + + + | Respiratory Rate | 18 | 01/11/2017 9:58 AM | | | | | PDT | | + + + + + | Oxygen Saturation | 97% | 01/11/2017 9:58 AM | | | | | PDT | | + + + + + | Inhaled Oxygen | - | - | | | Concentration | | | | + + + + + | Weight | 61.1 kg (134 lb 11.2 | 01/11/2017 9:58 AM | | | | oz) | PDT | | + + + + + | Height | 165.1 cm (5' 5") | 01/11/2017 9:58 AM | | | | | PDT | | + + + + + | Body Mass Index | 22.42 | 01/11/2017 9:58 AM | | | | | PDT | | + + + + + documented in this encounter Patient Instructions Patient Instructions Sammi Owen CMA - 01/11/2017 9:15 AM PDT 1.Go to bed at the same time. 2. Get up at the same time. 3. Do not sleep with pets in the bed. 4. Do not watch TV in bed. 5.Do not read in bed. 6.Take a warm bath/shower before going to bed. (your feet need to be warm) 7. If you can not sleep after 20 minutes of going to bed, get out of bed and do something b oring such as watch TV, read a book. Do not play games or doanything energetic. 8. Keep your bedroom dark and quiet at night. 9. Avoid caffeine after lunch. 10. Avoid naps during the day. 11. Avoid nicotine before bed. 12. No exercise after 5 pm. 13. Try to get rid of or deal with things that make you worry. documented in this encounter Progress Notes Royce Denis, Medical Student - 01/11/2017 9:15 AM PDTFormatting of this note might be d ifferent from the original. Donna Camarena is a 21 y.o. female Chief Complaint: Depression and Anxiety HPI Patient seen for depression/anxiety follow-up today after starting Effexor at last visit 1 month ago. Says her symptoms are much improved, with PHQ 9 score down to 6 ( from 16) and GA D7 down to 5 ( from 13 previously). No noted adverse effects from new medications. Does report recent difficulty with falling asleep and staying asleep. Feels like this effec ts her ADL's. States that she was recently seen at Urgent Care on 01/07 for furuncle skin infections to l eft lower leg x 1 month. Notes that two separate spots became erythematous and painful at th e same time. Does report some initial green-yellow discharge from the areas after she picked and scratched the area, but has not noted any d/c for the past week. Was Rx Clindamycin by Urgent Care on 01/07, but has not picked up the prescription or started it yet. Denies fever s, chills, worsening Sx, SOB, abdominal pain, rash, and n/v. Reports chronic right sided back pain, which is her normal pain. Says that normally it is c ontrolled with her [place], but feels that recently it has been worse x 1 week after she took a fall while climbing on a ladder. Patient states she was climbing on the ladder after her 6 y/o climbed " on to the roof" while she was asleep in the middle of the day. Says that her 3 y/o was also attempting to climb up the ladder when she woke up and retrieved both childre n before injuries occurred to either of them. However, patient fell off the ladder on her wa y back down, falling approx. 2 steps away from the ground, and landing on her left side. She did not hit her head, and denies any other injuries. Denies focal weakness, saddle paresthe dinesh, and urinary/bladder incontinence. PREVENTIVE CARE/PRIOR VISITS 1. Any recommendations from [...] in medical events/hospitalizations since their last visit: ye s; urgent care for skin infection Allergies Allergen Reactions Dimetapp Cold-Allergy Hives and Rash Meloxicam Hives, Anxiety and Rash Medications: Patient Reported Taking Dosage acetaminophen (TYLENOL) 500 mg tablet (Taking) Take 500 mg by mouth every 6 hours as need ed for Pain. aspirin 325 mg tablet (Taking) Take 325 mg by mouth 2 times daily. clindamycin (CLEOCIN) 300 MG capsule (Taking) Take 1 capsule by mouth 3 times daily for 1 0 days. Number of times this order has been changed since signin [facility] clindamycin (CLEOCIN) 300 MG capsule (Taking/Discontinued) Take 1 capsule by mouth 3 time s daily for 10 days. Number of times this order has been changed since signin [facility] cyclobenzaprine (FLEXERIL) 10 mg tablet (Taking) Take 1 tablet by mouth 3 times daily as needed for Muscle spasms. Number of times this order has been changed since signin [facility] gabapentin (NEURONTIN) 300 mg capsule (Taking) Take 3 capsules by mouth Daily. Number of times this order has been changed since signin [facility] HYDROcodone-acetaminophen (NORCO) 5-325 mg per tablet Starting on 01/14/2017. Take 1 tablet by mouth every 6 hours as needed for Pain (for severe break through pain). Number of times this order has been changed since signin [facility] HYDROcodone-acetaminophen (NORCO) 5-325 mg per tablet (Taking/Discontinued) Take 1 tablet by mouth every 6 hours as needed for Pain (for severe break through pain). Number of times this order has been changed since signin [facility] hydrOXYzine hydrochloride (ATARAX) 25 mg tablet (Taking) Take 2 tablets by mouth every 6 hours as needed for Itching or Anxiety. Number of times this order has been changed since signin [facility] naproxen (NAPROSYN) 500 mg tablet (Taking) Take 1 tablet by mouth 2 times daily (with rashida akfast & dinner). Number of times this order has been changed since signin [facility] ondansetron (ZOFRAN ODT) 4 mg disintegrating tablet (Taking) Take 1 tablet by mouth every 8 hours as needed for Nausea. Number of times this order has been changed since signin [facility] ondansetron (ZOFRAN) 4 mg tablet (Taking/Discontinued) propranolol (INDERAL) 10 mg tablet (Taking) Take 1 tablet by mouth 2 times daily. Number of times this order has been changed since signin [facility] venlafaxine (EFFEXOR XR) 75 mg 24 hr capsule (Taking) Take 1 capsule by mouth Daily. Number of times this order has been changed since signin [facility] Past Medical History She has a past [...] 2 Years of education: G.E.D. Occupational History [employer] UNEMPLOYED Social History Main Topics Smoking [...] for chills and fever. HENT: Negative for sinus pressure and sore throat. Respiratory: Negative for cough, chest tightness and shortness of breath. Cardiovascular: Negative for chest pain and palpitations. Gastrointestinal: Negative for abdominal pain, nausea and vomiting. Genitourinary: Negative for dysuria and hematuria. Musculoskeletal: Positive for back pain. Chronic Skin: Negative for rash. Sores to left leg Psychiatric/Behavioral: Positive for sleep disturbance. The patient is nervous/anxious. Mild anxiety Objective: Vitals: 01/11/17 0958 BP: 134/74 Pulse: 107 Resp: 18 Temp: 37 C (98.6 F) TempSrc: Temporal SpO2: 97% Weight: 61.1 kg (134 lb 11.2 oz) Height: 1.651 m (5' 5") Physical Exam Constitutional: She is oriented to person, place, and time. She appears well-developed. No distress. Sitting in chair with NAD. Disheveled and unwashed appearance. HENT: Head: Normocephalic and atraumatic. Right Ear: External ear normal. Left Ear: External ear normal. Poor dentition. Eyes: Conjunctivae are normal. Pupils are equal, round, and reactive to light. Neck: Normal range of motion. Neck supple. No JVD present. Cardiovascular: Regular rhythm, S1 normal and S2 normal. Tachycardia present. Exam reveal s no gallop, no S3 and no S4. Pulmonary/Chest: Breath sounds normal. She has no wheezes. She has no rales. Abdominal: Soft. There is no tenderness. Musculoskeletal: She exhibits no edema. Mild right sided paraspinous muscle tenderness to palpation, with some noted hypertonicity. No bony tenderness. Neurological: She is alert and oriented to person, place, and time. Skin: Skin is warm and dry. 2 small healing abscesses/furuncles with scabbing over the top to left lower extremity. No fluctuance noted. No surrounding erythema, increased warmth, or streaking. Approx. 3 cm heal ing, superficial abrasion to left achilles area (patient reports that this was sustained whi le recently shaving her leg). No surrounding erythema or fluctuance noted. Ortho Exam Results for orders placed or performed in visit on 01/07/17 POCT Test, Urine, QUAL Result Value Ref Range Test, Urine, POC Negative Negative Internal QC Acceptable Acceptable Specific [place], POC 1.010, 1.015, 1.020, 1.025 Lot Number [id number] Expiration Date 07/02/2018 Assessment and Plans: 1.) Depression 2.) Anxiety - patient's PHQ 9 and SULMA 7 scores both improved significantly from her last appointment 1 month ago. Patient feels the Effexor, Adderax, and Propanolol are controlling her symptoms w ell. Continue with these medications and follow-up in one month. 3.) Leg Sores - patient was seen at Urgent Care on 01/07 and Rx Clindamycin 300 mg, 3x/daily x 10 days, b ut did not curing pickling packer her prescription. Patient seen today for same complaint. Re-ordered Clind amycin for patient to curing pickling packer today, which she affirms that she will. 4.) Insomnia - counseled on improving sleep hygiene, with hand-out provided. Warned patient that we will have to retrain her body to sleep, and spoke at length about setting up realistic expectati ons, including that any prescription medication will not be a quick fix for this. - Rx Trazadone 100 mg to take PRN for sleep. Risks and benefits discussed with patient. 5.) Chronic Pain - patient reports persistent chronic right sided lower back pain, but feels it is controlle d with [place]. Pain contract in place and current. Will take UA sample today, and give patien t Rx for a refill, as per contract. Royce Denis, Medical Student DATE/TIME: 01/11/2017 13:23 Lamont Valadez MD - 01/11/2017 9:15 AM PDTFormatting of this note might be different from the orig inal. Donna Camarena is a 21 y.o. female Chief Complaint: Depression and Anxiety HPI Depression/Anxiety: Patient is here for follow-up of Depression and anxiety. Patient started taking Effexor 75m g a little over a month ago and has noticed an improvement. Onset: Ongoing She has the following depression symptoms: anhedonia, depressed mood, feelings of worthless ness/guilt, insomnia and psychomotor retardation She denies the following symptoms: difficulty concentrating, fatigue and recurrent thoughts of She complains of the following anxiety symptoms: feeling nervous, anxious, not able to stop worrying, worrying too much, having trouble relaxing and being restless/hard to sit still Symptoms are improving Sleep Disturbance: Yes Are you currently in counseling: no Treatments Tried: Patient is currently taking 75mg daily and atarax 25mg two tabs q6h, and propanolol 10mg bid. Have they been effective: Yes PHQ9 Depression scale: Date of Last ScreeningTotal Score 6 (01/11/17 1000) Previous: 16 (1-4 = Minimal depression, 5-9 = Mild depression, 10-14 = Moderate depression, 15-19 = Mode rately severe depression, 20-27 = Severe depression) General Anxiety Disorder (SULMA-7): Total Score 5 (01/11/17 1000) Previous: 13 (8-9 = consistent with Generalized anxiety disorder, >15 = severe) Fall: Patient states she fell off a ladder yesterday trying to get her 6 year old son was o ff the roof. Denies any head injury. She states she landed on her left side. Leg sores: Patient was seen in Urgent Care 01/07/17. Note as follows: Chief Complaint: Other (leg sores RM 5 ) History of Present Illness: Donna is a 21 y.o. female who comes in complaining of infected sores on her legs. She wa s in residential recently and cut herself shaving the back of the L leg. She then developed some sores on the front of the L leg. She picked them and now they are getting really red. She is worried she may have MRSA. Neither she nor BF have had hx of MRSA. 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 She would also like a test. Nexplanon but she has been tired and breasts tender. No menses for 2 years. No other complaints. Patient's medications, allergies, past medical, surgical, social and family histories were reviewed and updated as appropriate. 2 kids. Not working. Assessment and Plans: 1. Laceration of left leg, initial encounter 2. Furuncle POCT Test, Urine, QUAL recent residential so concern for MRSA Clindamycin 300 mg [...] heal. Do not pick off the scabs. PREVENTIVE CARE/PRIOR VISITS 1. Any recommendations from Health Maintenance: There are no preventive care reminders to display for this patient. Preventative Services TOPIC LAST DONE NEXT DUE Influenza Imm (Yearly) 01/21/2017 Cervical Cancer Screening (Pap Every 3 Years 21-64 ) 2014 Dtap/Tdap/Td Imm 08/23/2013 08/24/2023 Hpv Imm 11/30/2016 Pneumo Imm Ppsv23 11/02/2016 2. Any immunizations necessary: No 3. Has patient been involved in medical events/hospitalizations since their last visit: Ur gent care for cut on ankle and leg sores Allergies Allergen Reactions Dimetapp Cold-Allergy Hives and Rash Meloxicam Hives, Anxiety and Rash Nortriptyline INEFFECTIVE Medications: Patient Reported Taking Dosage acetaminophen (TYLENOL) 500 mg tablet (Taking) Take 500 mg by mouth every 6 hours as need ed for Pain. aspirin 325 mg tablet (Taking) Take 325 mg by mouth 2 times daily. clindamycin (CLEOCIN) 300 MG capsule (Taking) Take 1 capsule by mouth 3 times daily for 1 0 days. Number of times this order has been changed since signin [facility] clindamycin (CLEOCIN) 300 MG capsule (Taking/Discontinued) Take 1 capsule by mouth 3 time s daily for 10 days. Number of times this order has been changed since signin [facility] cyclobenzaprine (FLEXERIL) 10 mg tablet (Taking) Take 1 tablet by mouth 3 times daily as needed for Muscle spasms. Number of times this order has been changed since signin [facility] gabapentin (NEURONTIN) 300 mg capsule (Taking) Take 3 capsules by mouth Daily. Number of times this order has been changed since signin [facility] HYDROcodone-acetaminophen (NORCO) 5-325 mg per tablet Starting on 01/14/2017. Take 1 tablet by mouth every 6 hours as needed for Pain (for severe break through pain). Number of times this order has been changed since signin [facility] HYDROcodone-acetaminophen (NORCO) 5-325 mg per tablet (Taking/Discontinued) Take 1 tablet by mouth every 6 hours as needed for Pain (for severe break through pain). Number of times this order has been changed since signin [facility] hydrOXYzine hydrochloride (ATARAX) 25 mg tablet (Taking) Take 2 tablets by mouth every 6 hours as needed for Itching or Anxiety. Number of times this order has been changed since signin [facility] naproxen (NAPROSYN) 500 mg tablet (Taking) Take 1 tablet by mouth 2 times daily (with rashida akfast & dinner). Number of times this order has been changed since signin [facility] ondansetron (ZOFRAN ODT) 4 mg disintegrating tablet (Taking) Take 1 tablet by mouth every 8 hours as needed for Nausea. Number of times this order has been changed since signin [facility] ondansetron (ZOFRAN) 4 mg tablet (Taking/Discontinued) propranolol (INDERAL) 10 mg tablet (Taking) Take 1 tablet by mouth 2 times daily. Number of times this order has been changed since signin [facility] venlafaxine (EFFEXOR XR) 75 mg 24 hr capsule (Taking) Take 1 capsule by mouth Daily. Number of times this order has been changed since signin [facility] Past Medical History She has a past [...] 2 Years of education: G.E.D. Occupational History [employer] UNEMPLOYED Social History Main Topics Smoking status: Current Every Day Smoker Packs/day: 1.00 Years: 14.00 Types: Cigarettes Start date: 09/17/2009 Smokeless tobacco: Never Used Alcohol use 0.0 oz/week Comment: rarely Drug use: No Sexual activity: Yes Partners: Male control/ protection: Yes Comment: Norplant Other Topics Concern None Social History Narrative None Review of Systems Constitutional: Negative for activity change, appetite change and unexpected weight change. Cardiovascular: Negative for chest pain and palpitations. Gastrointestinal: Negative for abdominal pain. Musculoskeletal: Positive for back pain. Psychiatric/Behavioral: Positive for sleep disturbance. Negative for agitation, dysphoric m ood, self-injury and suicidal ideas. The patient is not nervous/anxious. Objective: Vitals: 01/11/17 0958 BP: 134/74 Pulse: 107 Resp: 18 Temp: 37 C (98.6 F) TempSrc: Temporal SpO2: 97% Weight: 61.1 kg (134 lb 11.2 oz) Height: 1.651 m (5' 5") Physical Exam Constitutional: She is oriented to person, place, and time. No distress. Appropriately dressed and groomed HENT: Head: Normocephalic and atraumatic. Eyes: Conjunctivae are normal. Musculoskeletal: She exhibits no edema. Neurological: She is alert and oriented to person, place, and time. Skin: Skin is warm and dry. Sores Psychiatric: PHQ9 Depression scale: Date of Last ScreeningTotal Score 6 (01/11/17 1000) (Printable questionnaires in Maltese ) Interpretation of Total Score: 1-4 = Minimal depression, 5-9 = Mild depression, 10-14 = Mod erate depression, 15-19 = Moderately severe depression, 20-27 = Severe depression 1. Little interest or pleasure in doing things?: Several days (01/11/17 1000) 2. Feeling down, depressed, or hopeless: Several days (01/11/17 1000) 3. Trouble falling or staying asleep, or sleeping too much?: More than half the days ( 1000) 4. Feeling tired or having little energy?: Not at all (01/11/17 1000) 5. Poor appetite or overeating: Not at all (01/11/17999) 6. Feeling bad about yourself - or that you are a failure or have let yourself or your f amily down?: Several days (01/11/17999) 7. Trouble concentrating on things, such as reading the newspaper or watching television : Not at all (01/11/17999) 8. Moving or speaking so slowly that other people could have noticed. Or the opposite - being so fidgety or restless that you have been moving around a lot more than usual?: Severa l days (01/11/17999) 9. Thoughts that you would be better off , or of hurting yourself in some way?: Not at all (01/11/17999) 10. If you checked off any problems, how difficult have these problems made it for you to do your work, take care of things at home, or get along with other people?: Somewhat difficu lt (01/11/17999) General Anxiety Disorder (SULMA-7): Total Score 5 (01/11/17999) (From SULMA or Chronic Pain tab; printable questionnaires in Maltese ) Interpretation of Total Score: 8-9 = consistent with Generalized anxiety disorder, >15 = se janessa 1. Feeling nervous, anxious, or on edge?: Several days (01/11/17999) 2. Not being able to stop or control worrying: Several Days (01/11/17999) 3. Worrying too much about different things?: Several Days (01/11/17999) 4. Trouble relaxing?: Several Days (01/11/17999) 5. Being so restless that it is hard to sit still?: Several Days (01/11/17999) 6. Becoming easily annoyed or irritable?: Not at all (01/11/17999) 7. Feeling afraid as if something awful might happen?: Not at all (01/11/17999) Nursing note and vitals reviewed. Ortho Exam Results for orders placed or performed in visit on 01/11/17 Drugs of Abuse, Screen, Urine Result Value Ref Range Amphetamine Screen, Urine Negative Negative Barbiturates Screen, Urine Negative Negative Benzodiazepines, Urine, Screen Negative Negative Cannabinoids Screen, Urine Negative Negative Cocaine Screen, Urine Negative Negative Methadone Screen, Urine Negative Negative Opiates Screen, Urine Positive (A) Negative Assessment: 1. Moderate episode of recurrent major depressive disorder (HCC) 2. Generalized anxiety disorder 3. Insomnia, unspecified type traZODone (DESYREL) 100 mg tablet 4. Leg sore clindamycin (CLEOCIN) 300 MG capsule 5. Chronic pain syndrome HYDROcodone-acetaminophen (NORCO) 5-325 mg per tablet Drugs of Abuse, Screen, Urine 6. Chronic right-sided low back pain with right-sided sciatica Plans: 1. Moderate episode of recurrent major depressive disorder (HCC) 2. Generalized anxiety disorder Improving. - Anxiety and depression scores reviewed with patient [...] and improve your emotional w ell being. 3. Insomnia, unspecified type New diagnosis. Patient to monitor her sleep. Reviewed different sleeping medications and h ow they work. Discussed with patient that it will take her body a little while to adjust an d re-train brain to sleep. Recommended to avoid caffeine in the evenings and set a bedtime routine and about an hour prior to bed, as well as getting into a relaxing mood. Medication risks and benefits were reviewed in detail today with the patient who expresses understanding. Pt will call or return with problems or side effects. Sleep hygiene handout provided (Nortriptyline previously unhelpful for pain or sleep) - traZODone (DESYREL) 100 mg tablet; Take 0.5-1 tablet nightly as needed for sleep Dispens e: 30 tablet; Refill: 11 4. Leg sore Slow healing. Instructed patient to stop picking. Patient to take antibiotics for 10 days. Will notify me if there is any further signs of infection. Medication risks and benefits wer e reviewed in detail today with the patient who expresses understanding. Patient will call or return with problems or side effects. - clindamycin (CLEOCIN) 300 MG capsule; Take 1 capsule by mouth 3 times daily for 10 days. Dispense: 30 capsule; Refill: 0 5. Chronic pain syndrome 6. Chronic right-sided low back pain with right-sided sciatica Ongoing. Will continue with the small amount of opioid. She is aware that this will not be group home. UDS completed today. - HYDROcodone-acetaminophen (NORCO) 5-325 mg per tablet; Take 1 tablet by mouth every 6 roberto rs as needed for Pain (for severe break through pain). Dispense: 30 tablet; Refill: 0 - Drugs of Abuse, Screen, Urine Follow-up: Return in about 3 months (around 04/13/2017) for Anxious Depression, Insomnia (n ew med), Chronic Pain. I, Sammi Owen [facility], am acting as a scribe on behalf of, and in the presence of MD Sammi Ellis [employer] 01/11/2017 I, Dr. Pj Abdi, personally performed the services described in this documentation, as scribed in my presence and it is both accurate and complete. Pj Abdi MD 01/11/17 documented in this en counter Plan of Treatment Not on filedocumented as of this encounter Procedures + +--------+ + + + | Procedure Name | Priori | Date/Time | Associated Diagnosis | Comments | | | ty | | | | + +--------+ + + + | DRUGS OF ABUSE, | Routin | 01/11/2017 | Chronic pain | Results for this | | SCREEN, URINE | e | 11:04 AM | syndrome | procedure are in the | | | | PDT | | results section. | + +--------+ + + + documented in this encounter Results Drugs of Abuse, Screen, Urine (01/11/2017 11:04 AM PDT) + + + + + + | Component | Value | Ref Range | Performed | Pathologist | | | | | At | Signature | + + + + + + | Amphetamine | Negative | Negative | [facility] | | | Screen, | | | [facility] | | | Urine | | | MEDICAL | | | | | | CENTER - | | | | | | LABORATORY | | + + + + + + | Barbiturate | Negative | Negative | [facility] | | | s Screen, | | | [facility] | | | Urine | | | MEDICAL | | | | | | CENTER - | | | | | | LABORATORY | | + + + + + + | Benzodiazep | Negative | Negative | [facility] | | | maranda | | | [facility] | | | Screen, | | | MEDICAL | | | Urine | | | CENTER - | | | | | | LABORATORY | | + + + + + + | Cannabinoid | Negative | Negative | [facility] | | | s Screen, | | | [facility] | | | Urine | | | MEDICAL | | | | | | CENTER - | | | | | | LABORATORY | | + + + + + + | Cocaine | Negative | Negative | [facility] | | | Screen, | | | [facility] | | | Urine | | | MEDICAL | | | | | | CENTER - | | | | | | LABORATORY | | + + + + + + | Methadone | Negative | Negative | [facility] | | | Screen, | | | [facility] | | | Urine | | | MEDICAL | | | | | | CENTER - | | | | | | LABORATORY | | + + + + + + | Opiates | Positive (A) | Negative | [facility] | | | Screen, | | | [facility] | | | Urine | | | [...] + + | [facility] | [address] | [place] | [phone] | | [facility] | | [address] | | | - LABORATORY | | | | + + + + + documented in this encounter Visit Diagnoses + + | Diagnosis | + + | Moderate episode of recurrent major depressive disorder (HCC) - Primary | + + | Generalized anxiety disorder | + + | Insomnia, unspecified type | + + | Leg sore Ulcer of lower limb, unspecified | + + | Chronic pain syndrome | + + | Chronic right-sided low back pain with right-sided sciatica | + + documented in this encounter
--- OUTSIDE RECORDS SUMMARY | ~2019-10-30 | XMS | Encounter Summary ---
Demographics + + + | Address | [address] | | | [place] [address] | + + + | Home Phone [...] | | | | | [place] [address] | | + + + + + | Ab Romykia | ECON | Unknown | | + + + + + Care Team Providers + +------+ + | Care System Archive Analyst Name | Role | Phone | [...] Description | +--------+--------+ + + + | 02/21/ | Refill | [facility] | Pj Abdi, | Medication Refill | | 2016 | | [facility] [place] | [address] | | | | | [address] | [place] | | | | | [place] | [address] | | | | | [address] | | | | | | [phone] | | | +--------+--------+ + + + [...]
--- OUTSIDE RECORDS SUMMARY | ~2019-10-30 | XMS | Encounter Summary ---
Demographics + + + | Address | [address] | | | [place] [address] | + + + | Home Phone | | + + + | Preferred Language | Unknown | + + + | Marital Status | Single | + + + | Oriental Orthodox Affiliation | 1013 | + + + | Race | Unknown | + + + | Ethnic Group | Unknown | + + + Author + + + | Author | [facility] | | | and [place] | + + + | Organization | [facility] | | [...] | | | | | [place] [address] | | + + + + + | Ab Romykia | ECON | Unknown | | + + + + + Care Team Providers + +------+ + | Care Harvester Operator Name | Role | Phone | + +------+ + | Mike Fernández MD | PCP | | + +------+ + Reason for Visit + + + | Reason | Comments | + + + | Emesis | rm 3 | + + + | Diarrhea | | + + + Encounter Details +--------+---------+ + + + | Date | Type | Department | Care Team | Description | +--------+---------+ + + + | 06/28/ | Office | [facility] | Efrain Alegria MD | Emesis (Primary Dx); | | 2012 | Visit | [facility] | [address] | Gastroenteritis, | | | | [facility] | [place], [place] | acute | | | | [place], [place] | [address] | | | | | [address] | | | | | | [phone] | | | +--------+---------+ + + + Social History + + + +--------+------+ | Tobacco Use | Types | Packs/Day | Years | Date | | | | | Used | | + + + +--------+------+ | Current Every Day | Cigarettes | 1 | | | | Smoker | | | | | + + + +--------+------+ + + | Tobacco Cessation: Ready to Quit: Yes; Counseling Given: No | | Comments: refused | + + + [...] + + + | Blood Pressure | 120/56 | 06/28/2012 3:39 PM | | | | | PST | | + + + + + | Pulse | 84 | 06/28/2012 3:39 PM | | | | | PST | | + + + + + | Temperature | 37.4 C (99.3 F) | 06/28/2012 3:39 PM | | | | | PST | | + + + + + | Respiratory Rate | 20 | 06/28/2012 3:39 PM | | | | | PST | | + + + + + | Oxygen Saturation | 100% | 06/28/2012 3:39 PM | | | | | PST | | + + + + + | Inhaled Oxygen | - | - | | | Concentration | | | | + + + + + | Weight | 51.6 kg (113 lb 12.8 | 06/28/2012 3:39 PM | | | | oz) | PST | | + + + + + | Height | 162.6 cm (5' 4") | 06/28/2012 3:39 PM | | | | | PST | | + + + + + | Body Mass Index | 19.53 | 06/28/2012 3:39 PM | | | | | PST | | + + + + + documented in this encounter Patient Instructions Patient Instructions Efrain Alegria MD - 06/28/2012 4:27 PM PSTVOMITING AND DIARRHEA, Non specific (Adult) Vomiting and diarrhea help the body remove harmful substances. This may be a virus ( stom ach flu ) or bacteria (food poisoning). Allergy to a food or medication may also cause vom iting or diarrhea. They also can sometimes be triggered by severe stress or worry (anxiety). It is often hard to pinpoint an exact cause, even with testing. Vomiting and diarrhea often resolve within a day or two without problems. If they continue, though, they can lead to dehydration (excess fluid loss). This can be serious if not treate d. HOME CARE Be cautious with medications. Ask your healthcare provider before you take nausea or diarrhea medication. The body often uses diarrhea and vomiting to get rid of a substance that may be toxic or cause harm. So med ications that slow or stop this may not be recommended. Certain jdxs-tlv-crswujo medications can help soothe stomach upset. Ask your provider whether these can help you. Drink or sip liquids to avoid dehydration. If you are dehydrated, the doctor may suggest an oral rehydration solution (known as ORS ). Pedialyte and Rehydralyte are common brand names. They can be bought without a prescripti on in grocery and drug stores. Use only prepared ORS. Do not try to make your own. The mix o f water, salt, and electrolytes is the best at replacing what you lose when you are ill. If you cannot get ORS solution, Gatorade diluted with water in equal amounts (one cup of Gatora de to one cup of water) is an okay substitute. Take small sips frequently to help avoid excess fluid loss. If you stop vomiting, you ca n advance your diet, but some things can worsen diarrhea. If the thought of drinking something makes you queasy, suck on ice chips. Avoid sugary beverages, such as juices and sodas. These may make diarrhea worse. Slowly return to your normal diet. As your desire to eat returns, eat what appeals to you. You do not need to eat special food s. At first, avoid rich, fatty foods or cow s milk. Do not eat too much at one time. You m ay be told to avoid certain foods until you feel better. Wash your hands. Frequent handwashing can help prevent the spread of infection. FOLLOW UP as advised by the doctor or our staff. GET PROMPT MEDICAL ATTENTION if any of the following occur: Bloody or black vomit or stools. Severe, steady abdominal pain or any abdominal pain that is getting worse. Severe headache or stiff neck An inability to hold down even sips of liquids for more than 12 hours. Vomiting that lasts more than 24 hours. Diarrhea that lasts more than 24 hours. Fever of 100.4F (38C) or higher that lasts more than 48 hours, or as directed by you r healthcare provider Yellowish color to your skin or the whites of your eyes. Signs of dehydration, such as dry mouth, little urine (less than every 6 hours), or very dark urine. Severe weakness, dizziness or lightheadedness [id number] [place] [address]. All rights reserve d. This information is not intended as a substitute for professional medical care. Always fo llow your healthcare professional's instructions.VIRAL GASTROENTERITIS (6yr-Adult) Gastroenteritis is another name for the stomach flu. It is most often caused by a v irus that affects the stomach and intestinal tract. Symptoms include stomach cramping and fe lito, vomiting and/or diarrhea, and can last from 2 to 7 days. The danger from repeated vomiting or diarrhea is dehydration. This is the loss of too much water and minerals from the body. When this occurs, body fluids must be replaced. Antibiotic s are not effective for this illness, but simple home treatment will be helpful. HOME CARE If symptoms are severe, rest at home for the next 24 hours. Avoid tobacco, caffeine, and alcohol use, which can worsen symptoms. Acetaminophen (Tylenol) or ibuprofen (Motrin, Advil) may be usedfor fever or pain unle ss another medication was prescribed. NOTE: If you have chronic liver or kidney disease or e lito had a stomach ulcer or GI bleeding, talk with your doctor before using these medicines. Aspirin should never be used in anyone under 18 years of age who is ill with a fever. It may cause severe liver damage. If medicines for diarrhea or vomiting were prescribed, be sure they are takenonly as d irected. If vomiting, drink small amounts of clear fluids (such as water, sports drinks, clear so guerrero) at frequent intervals to prevent dehydration. Start with 1 to 2 tablespoons every 10 mi nutes. Once vomiting stops, follow these guidelines: DURING THE FIRST 12 to 24 HOURSfollow the diet below: Beverages: Sport drinks like Gatorade, soft drinks without caffeine; silvestre dandy, mineral water (plain or flavored), decaffeinated tea and coffee. Soups: Clear broth, consomm and bouillon Desserts: Plain gelatin (Jell-O), Popsicles and fruit juice bars. DURING THE NEXT 24 HOURSyou may add the following to the above: Hot cereal, plain toast, bread, rolls, crackers Plain noodles, rice, mashed potatoes, chicken noodle or rice soup Unsweetened canned fruit (avoid pineapple), bananas Limit fat intake to less than 15 grams per day by avoiding margarine, butter, oils, small nnaise, sauces, gravies, fried foods, peanut butter, meat, poultry, and fish. Limit fiber; avoid raw or cooked vegetables, fresh fruits (except bananas), and bran cer eals. Limit caffeine and chocolate. Do not use spices or seasonings except salt. DURING THE NEXT 24 HOURS The patient can gradually resume a normal diet as symptoms lessen. PREVENTING SPREAD Hand washing with soap and water is the best way to prevent the spread of viruses. Careg messi should wash their hands before andafter touching the sick person. The sick person, as well as everyone in the family,should wash their hands after using the toilet and before meals. Clean the toilet after each use. People with diarrhea should not prepare food for others. If you are preparing your own f oods, wash your hands before and after. FOLLOW UP with your doctor as advised. Call your doctor if you are not improving over the n ext 2 to 3 days. If a stool (diarrhea) sample was taken, you may call in 2 days (or as direc meggan) for the results. GET PROMPT MEDICAL ATTENTION if any of the following occur: Increasing abdominal pain Continued vomiting (unable to keep liquids down) Frequent diarrhea (more than 5 times a day) Blood in vomit or stool (black or red color) Dark urine, reduced urine output, or extreme thirst Weakness, dizziness, fainting Drowsiness, confusion, stiff neck, or seizure Fever of 100.4F (38C) oral or higher, not better with fever medication [place] [id number] [facility], [address] [place] [address], [place] [address]. All rights reserve d. This information is not intended as a substitute for professional medical care. Always fo llow your healthcare professional's instructions. documented in this encounter Progress Notes Efrain Alegria MD - 06/28/2012 4:18 PM PST This 16-year-old mother complains of nausea for the last 7 days. She has not been vomiting . She has had a few loose stools, perhaps 3 or 4 daily without blood. He denies abdominal pain. No myalgia or headache. Part of her concern is that she lost her contraceptive ring a few weeks ago and has not replaced it. Her last normal menstrual period was in early , and she has not had a menses in June as yet. She does have plain of some sli ght breast soreness and said she had some leaking from the left breast yesterday -- apparent ly very small amount. Systems review and PMH reviewed appropriate to this visit. Exam: She is not acutely ill in appearance. Vital signs and postural VS are noted. No scl eral icterus. Chest is clear. Heart is normal. Abdomen; soft and nontender. The left rashida ast is examined, and is not full, tender, and no liquid is expressed. Urinalysis shows specific gravity 1.030, but no infection. Her urine hCG is negative. Impression: Gastroenteritis Disposition: Promethazine 25 mg tablets when necessary nausea. She's given information reg arding fluid resuscitation and maintenance. She can do this poorly at home. Imodium sugges meggan for diarrhea. He is instructed to reinsert her Nueva ring and to use alternative contra ception until she has had a menstrual flow. She will followup in event of poor progress.Pao ctronically signed by Efrain Alegria MD at 06/28/2012 5:20 PM Rosanna Lizarraga RN - 06/28 3:51 PM PST 06/28/12 1539 Orthostatic VS HR supine 84 BP supine 120/56 mmHg HR standing 100 BP standing 114/64 mmHg documented in this en counter Plan of Treatment Not on filedocumented as of this encounter Procedures + +--------+ + + + | Procedure Name | Priori | Date/Time | Associated Diagnosis | Comments | | | ty | | | | + +--------+ + + + | POCT URINALYSIS, | Routin | 06/28/2012 | Emesis | Results for this | | AUTO WITH CONF | e | 3:50 PM | | procedure are in the | | | | PST | | results section. | + +--------+ + + + | POCT TEST, | Routin | 06/28/2012 | Emesis | Results for this | | URINE, QUAL | e | 3:50 PM | | procedure are in the | | | | PST | | results section. | + +--------+ + + + documented in this encounter Results POCT Urine Screen (06/28/2012 3:50 PM PST) + + + + + + | Component | Value | Ref Range | Performed | Pathologist | | | | | At | Signature | + + + + + + | | Negative | (none) | | | | Test, | | | | | | Urine, POC | | | | | + + + + + + | Internal QC | Acceptable | (none) | | | + + + + + + + + | Specimen | + + | Urine specimen | | (specimen) | + + POCT Urinalysis Dipstick Automated (06/28/2012 3:50 PM PST) + + + + + + | Component | Value | Ref Range | Performed | Pathologist | | | | | At | Signature | + + + + + + | Color, UA, | Yellow | | | | | POC | | | | | + + + + + + | Clarity, | Slightly Cloudy | | | | | UA, POC | | | | | + + + + + + | Glucose, | Negative | | | | | UA, POC | | | | | + + + + + + | Bilirubin, | Negative | | | | | UA, POC | | | | | + + + + + + | Ketones, | Negative | Negative | | | | UA, POC | | | | | + + + + + + | Specific | 1.030 | | | | | [place], | | | | | | UA, POC | | | | | + + + + + + | Blood, UA, | Negative | | | | | POC | | | | | + + + + + + | pH, UA, POC | 5.0 | | | | + + + + + + | Protein, | 1+ | | | | | UA, POC | | | | | + + + + + + | Urobilinoge | 1.0 mg/dL | | | | | n, UA, POC | | | | | + + + + + + | Nitrite, | Negative | | | | | UA, POC | | | | | + + + + + + | Leukocyte | Negative | | | | | Esterase, | | | | | | UA, POC | | | | | + + + + + + | Reducing | | Negative | | | | Substances, | | [...] + | Diagnosis | + + | Emesis - Primary Vomiting alone | + + | Gastroenteritis, acute Other and unspecified noninfectious gastroenteritis and | | colitis | + + documented in this encounter
--- OUTSIDE RECORDS SUMMARY | ~2019-10-30 | XMS | Encounter Summary ---
Demographics + + + | Address | [address] | | | [place] [address] | + + + | Home Phone | | + + + | Preferred Language | Unknown | + + + | Marital Status | Single | + + + | Holiness Affiliation | 1013 | + + + | Race | Unknown | + + + | Ethnic Group | Unknown | + + + Author + + + | Author | [facility] | | | and [place] | + + + | Organization | [facility] | | | [...] | | | | | [place] [address] | | + + + + + | Ab Romykia | ECON | Unknown | | + + + + + Care Team Providers + +------+ + | Care Manufacturing Plant Technician Name | Role | Phone | + +------+ + PCP | Unavailable | + +------+ + Encounter Details +--------+ + + + + | Date | Type | Department | Care Team | Description | +--------+ + + + + | 04/14/ | Hospital | [facility] | | | | 2008 | Encounter | [facility] | | | | | | CENTER [address] | | | | | | [place], [place] | | | | | | [address] | | | | | | [phone] | | | +--------+ + + + [...]
--- OUTSIDE RECORDS SUMMARY | ~2019-10-30 | XMS | Encounter Summary ---
Demographics + + + | Address | [address] | | | [place] [address] | + + + | Home Phone | | + + + | Preferred Language | Unknown | + + + | Marital Status | Single | + + + | Rastafarian Affiliation | 1013 | + + + [...] | | | | | [place] [address] | | + + + + + | Ab Bunch | ECON | Unknown | | + + + + + Care Team Providers + +------+ + | Care Welfare Manager Name | Role | Phone | + +------+ + | John Rhodes | PCP | | + +------+ + Encounter Details +--------+ + + + + | Date | Type | Department | Care Team | Description | +--------+ + + + + | 09/22/ | Abstract | [facility] | Berto Vera MD | | | 2017 | | [address] | [address] | | | | | [place] | [facility] | | | | | [address] | [place] [address] | | | | | [phone] | [phone] | | +--------+ + + + + [...] + + documented as of this encounter Progress Notes Liana Moses CMA - 09/22/2016 9:54 AM PDTAbstract open in error documented in this encounter Plan of Treatment Not on filedocumented as of this encounter Visit Diagnoses Not on filedocumented in this encounter"
--- OUTSIDE RECORDS SUMMARY | ~2019-10-30 | XMS | Encounter Summary ---
Demographics + + + | Address | [address] | | | [place] [address] | + + + | Home Phone [...] | | | | | [place] [address] | | + + + + + | Ab Romykia | ECON | Unknown | | + + + + + Care Team Providers + +------+ + | Care Flitch Hanger Name | Role | Phone | + +------+ + | Pj Abdi MD | PCP | | + +------+ + Reason for Visit + + + | Reason | Comments | + + + | Medication Follow-up | | + + + Encounter Details +--------+ + + + + | Date | Type | Department | Care Team | Description | +--------+ + + + + | 09/29/ | Telephone | [facility] | Sophie Carrillo, | Medication Follow-up | | 2019 | | MEDICINE [address] | PharmD [address] | | | | | [facility] | [facility], | | | | | [place] [address] | [place] [address] | | | | | [phone] | [phone] | | | | | | | [...] + | Diagnosis | + + | Panic disorder - Primary Panic disorder without agoraphobia | + + documented in this encounter"
--- OUTSIDE RECORDS SUMMARY | ~2019-10-30 | XMS | Encounter Summary ---
Demographics + + + | Address | [address] | | | [place] [address] | + + + | Home Phone | | + + + | Preferred Language | Unknown | + + + | Marital Status | Single | + + + | Anabaptist Affiliation | 1013 | + + + | Race | Unknown | + + + | Ethnic Group | Unknown | + + + Author + + + | Author | [facility] | | | and [place] | + + + | Organization | [facility] | | [...] | | | | | [place] [address] | | + + + + + | Ab Romykia | ECON | Unknown | | + + + + + Care Team Providers + +------+ + | Care Associate Account Manager Name | Role | Phone | + +------+ + | Pj Abdi MD | PCP | | + +------+ + Reason for Visit + + + | Reason | Comments | + + + | Appointment | No-show for pain contracts | + + + Encounter Details +--------+ + + + + | Date | Type | Department | Care Team | Description | +--------+ + + + + | 12/01/ | Telephone | [facility] | Alessandra Mercedes | Appointment (No-show | | 2017 | | [facility] | A, PharmD [address] | for pain contracts) | | | | [address] | [address] | | | | | [place] | [place] [address] | | | | | [address] | [phone] | | | | | [phone] | | | +--------+ + + + [...]
--- OUTSIDE RECORDS SUMMARY | ~2019-10-30 | XMS | Encounter Summary ---
Demographics + + + | Address | [address] | | | [place] [address] | + + + | Home Phone | | + + + | Preferred Language | Unknown | + + + | Marital Status | Single | + + + | Latter Day Affiliation | 1013 | + + + | Race | Unknown | + + + | Ethnic Group | Unknown | + + + Author + + + | Author | [facility] | | | and [place] | + + + | Organization | [facility] | | [...] | | | | | [place] [address] | | + + + + + | Ab Bunch | ECON | Unknown | | + + + + + Care Team Providers + +------+ + | Care Clinical Care Coordinator Name | Role | Phone | + +------+ + | Mike Fernández MD | PCP | | + +------+ + Encounter Details +--------+ + + + + | Date | Type | Department | Care Team | Description | +--------+ + + + + | 12/13/ | Hospital | [facility] | Mukesh Coppola | | | 2012 - | Encounter | [facility] CTR [facility] | MD Fernando [address] | | | | | [place] [address] | [facility] | | | 12/14/ | | [place], [place] | [facility] [place] [address] | | | 2012 | | [address] | [phone] | | | | | [phone] | | | +--------+ + + + [...]
--- OUTSIDE RECORDS SUMMARY | ~2019-10-30 | XMS | Encounter Summary ---
Demographics + + + | Address | [address] | | | [place] [address] | + + + | Home Phone | | + + + | Preferred Language | Unknown | + + + | Marital Status | Single | + + + | Jew Affiliation | 1013 | + + + | Race | Unknown | + + + | Ethnic Group | Unknown | + + + Author + + + | Author | [facility] | | | and [place] | + + + | Organization | [facility] | | [...] | | | | | [place] [address] | | + + + + + | Ab Romykia | ECON | Unknown | | + + + + + Care Team Providers + +------+ + | Care Curb Machine Operator Name | Role | Phone [...] Description | +--------+--------+ + + + | 06/06/ | Refill | [facility] | Pj Abdi, | Medication Refill | | 2017 | | MEDICINE [place] | [address] | | | | | [address] | [place] | | | | | [place] | [address] | | | | | [address] | | | | | | [phone] | | | +--------+--------+ + + + [...]
--- OUTSIDE RECORDS SUMMARY | ~2019-10-30 | XMS | Encounter Summary ---
Demographics + + + | Address | [address] | | | [place] [address] | + + + | Home Phone | | + + + | Preferred Language | Unknown | + + + | Marital Status | Single | + + + | Faith Affiliation | 1013 | + + + | Race | Unknown | + + + | Ethnic Group | Unknown | + + + Author + + + | Author | [facility] | | | and [place] | + + + | Organization | [facility] | [...] | | | | | [place] [address] | | + + + + + | Ab Romykia | ECON | Unknown | | + + + + + Care Team Providers + +------+ + | Care Eeg Tech Name | Role | Phone | + [...] Description | +--------+--------+ + + + | 01/12/ | Refill | [facility] | Pj Abdi, | Medication Refill | | 2016 | | MEDICINE [place] | [address] | | | | | [address] | [place] | | | | | [place] | [address] | | | | | [address] | | | | | | [phone] | | | +--------+--------+ + + + [...]
--- OUTSIDE RECORDS SUMMARY | ~2019-10-30 | XMS | Encounter Summary ---
Demographics + + + | Address | [address] | | | [place] [address] | + + + | Home Phone | | + + + | Preferred Language | Unknown | + + + | Marital Status | Single | + + + | Sabianism Affiliation | 1013 | + + + | Race | Unknown | + + + | Ethnic Group | Unknown | + + + Author + + + | Author | [facility] | | | and Johnana | + + + | Organization | [facility] | | | [...] | | | | | [place] [address] | | + + + + + | Absweta Bunch | ECON | Unknown | | + + + + + Care Team Providers + +------+ + | Care Tennis Professional Name | Role | Phone | + +------+ + | Pj Abdi MD | PCP | | + +------+ + Reason for Visit + + + | Reason | Comments | + + + | Chronic Pain | | + + + Encounter Details +--------+ + + + + | Date | Type | Department | Care Team | Description | +--------+ + + + + | 11/11/ | Telephone | [facility] | Alessandra Mercedes | Chronic Pain | | 2017 | | [facility] | Zenon, PharmD [address] | | | | | [address] | [address] [facility] | | | | | [place] | [place] [address] | | | | | [address] | [phone] | | | | | [phone] | | | +--------+ + + + [...]
--- OUTSIDE RECORDS SUMMARY | ~2019-10-30 | XMS | Encounter Summary ---
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 | +---------+ + Encounter Details +--------+ + + + + | Date | Type | Department | Care Team | Description | +--------+ + + + + | 12/19/ | Telephone | [facility] | MarcosLissa FNP | Confectionery Maker (med refill) | | 2019 | | MEDICINE [facility] | [address] | | | | | [address] | [place] | | | | | [place] | [address] | | | | | [address] | | | | | | [phone] | | | +--------+ + + + [...] + | Diagnosis | + + | Fibromyalgia - Primary Mylagia and myositis, unspecified | + + | Patellofemoral pain syndrome of both knees | + + | Generalized anxiety disorder | + + documented in this encounter"
--- OUTSIDE RECORDS SUMMARY | ~2019-10-30 | XMS | Encounter Summary ---
Demographics + + + | Address | [address] | | | [place] [address] | + + + | Home Phone [...] + + + | Author | [facility] | | | and Johnana | + + + | Organization | [facility] | | | [...] | | | | | [place] [address] | | + + + + + | Absweta Bunch | ECON | Unknown | | + + + + + Care Team Providers + +------+ + | Care Underwriting Operations Manager Name | Role | Phone | [...] Description | +--------+---------+ + + + | 12/07/ | Office | [facility] | Alessandra Mercedes | Chronic pain | | 2017 | Visit | MEDICINE [place] | Zenon, PharmD [address] | syndrome | | | | [address] | [address] [facility] | | | | | [place] | [place] [address] | | | | | [address] | [phone] | | | | | [phone] | | | +--------+---------+ + + + [...] this encounter Last Filed Vital Signs + +---------+ + + | Vital Sign | Reading | Time Taken | Comments | + +---------+ + + | Blood Pressure | 126/84 | 12/07/2016 4:45 PM | | | | | PDT | | + +---------+ + + | Pulse | 98 | 12/07/2016 4:45 PM | | | | | PDT | | + +---------+ + + | Temperature | - | - | | + +---------+ + + | Respiratory Rate | - | - | | + +---------+ + + | Oxygen Saturation | 99% | 12/07/2016 4:45 PM | | | | | PDT | | + +---------+ + + | Inhaled Oxygen | - | - | | | Concentration | | | | + +---------+ + + | Weight | - | - | | + +---------+ + + | Height | - | - | | + +---------+ + + | Body Mass Index | - | - | | + +---------+ + + documented in this encounter Patient Instructions Patient Instructions Alessandra Mercedes PharmD - 12/07/2016 4:00 PM PDTThank you for rev iewing and signing your pain contracts with us today. You have been scheduled to renew thes e again in 1 year. Please follow up with your primary care provider in 3 months as regularl y scheduled. If you have further questions pertaining to treatment or side effect management, feel free to call our office to speak with the nurse specialist, pharmacist, or your provider. Common Myths About Pain Medications Chronic pain is long-lasting pain due to a condition that can't be cured or easily treated. In many cases, the underlying cause of chronic pain cannot be clearly found.Being in pain c an be exhausting. It can affect your ability to eat, sleep, or just do day-to-day tasks. Betito n medications can help relieve some of your pain and make daily life easier. They are likely to be part of your treatment for chronic pain. Below are some common myths about pain medic ations. Myth: Medications will cure my pain. Fact: Medications can help control chronic pain, but they rarely cure it. Myth: If my usual dose helps a little, a larger dose will help a lot. Fact: Taking a larger dose of medication may be dangerous, even fatal . If you feel that yo u need to increase your dose, consult your healthcare provider. Myth: I shouldn't take medication unless I'm in severe pain. Fact: Preventing pain is easier than treating it once it has begun. You may even need less medicine. For best results, take pain medication on schedule. Myth: Taking pain pills means I'm weak. Fact: Feeling pain is not a moral failing. It is a medical problem. Taking medication can h elp you get more out of your other treatments and allow you to participate in more things. Myth: I'll get addicted. Fact: Addiction means severe changes in your behavior. Addiction toopioidpain medicatio ns like morphine and oxycodone isfairly uncommon. Addiction to non-opioidpain medication s like acetaminophen and ibuprofen doesn't happen. Long-term use ofopioid painmedication s may lead to increasedtolerance(needing to take more for the same effect). Or it may ca usephysical dependence.This meansthat to avoid withdrawal,you'll need to "taper off" if you and your doctor decide to stop the medication.Tolerance and dependence arenormal responsestoopioid painmedicationsandarenot the same as addiction. [id number] [employer]. [address] [place] [address], [place] [address]. All righ ts reserved. This information is not intended as a substitute for professional medical care. Always follow your healthcare professional's instructions. documented in this encounter Progress Notes Alessandra Mercedes, Berkley - 12/07/2016 4:00 PM PDTFormatting of this note might be diffe rent from the original. Subjective/Objective: Donna Camarena is a 21 y.o. female patient of Pj Abdi MD presenting today t o review and sign pain contracts. Pt currently takes the following opioid medication(s) for chronic back pain. Opioids Opioid Combinations Sig HYDROcodone-acetaminophen (NORCO) 5-325 mg per tablet Take 1 tablet by mouth every 6 hours as needed for Pain (for severe break through pain). Reports increased anxiety since losing her job about 4 days ago. She does not have a funct ioning car so has a hard time getting out of the house and feels that being stuck in the roberto se makes her anxiety go up. Will take acetaminophen 500mg 3-4 times per day in addition to the hydrocodone max of 4 in a day. She asks today if we can find out when her Implanon needs replaced. She can't remember if Evette Barnhart placed it, or Dr. Cordoba. [facility] sig for: Past Medical History: Diagnosis Date Anxiety Chronic low back pain 09/21/2016 DDD (degenerative disc disease), lumbar 09/21/2016 Depression Environmental allergies Facet arthritis of lumbar region (HCC) 09/21/2016 PONV (postoperative nausea and vomiting) Scoliosis Wears dentures upper partial (has lower but doesn't wear) Lab Results Component Value Date CREA 0.56 (L) 08/08/2016 BUN 4 (L) 08/08/2016 NA 140 08/08/2016 K 3.2 (L) 08/08/2016 CL 107 08/08/2016 CO2 24 08/08/2016 Average Pain Score: 7 Highest Pain Score: 9 Lowest Pain Score: 4 Improved functional ability: walking, cleaning, laundry, dishes Side Effects: nausea/vomiting Today the Chronic Pain Management Agreement and Consent Form for Opioid Therapy were presen meggan to pt. She was given a copy of the agreement and ample time was given for the review and signing of this document by the patient. Please see attached form for details. Some educational information was presented which included information about chronic pain me dications, side effects, treatment strategies, goals of treatment, potential dangers of opio ids, and [place] State Law requirements for chronic opioid use. Side effect profiles were assessed and a bowel protocol was handed out to the patient and e xplained in detail. These medications can be used for constipation in a step-goss fashion an d the patient was encouraged that if at any point they need assistance with this or it's not working, they can contact our office and we will work with them to titrate the medications to effect. Additionally, a pain log was given to the patient to assist in tracking of doses taken. CAGE-AID Negative 1. Have you ever felt you ought to cutdown on your drinking or drug use? No 2. Have people annoyed you by criticizing your drinking or drug use? No 3. Have you ever felt bad or guilty about your drinking or drug use? No 4. Have you ever had a drink or used drugs first thing in the morning? No STOP-BANG FILI Screen 12/07/2016 Have you had a Sleep Study? No Do you snore loudly? No Do you often feel tired, fatigued, or sleepy during daytime? No Has anyone observed you stop breathing during your sleep? No Do you have, or are you being treated for, high blood pressure? No BMI more than 35? No Age (any age over 50 = Yes) 21 Neck Circumference > 15 " (40cm)? - Gender male? No Total Score - Risk for Obstructive Sleep Apnea - SLUMA-7 Anxiety Scale: SULMA-7 Score (General Anxiety Disorder): 13 Interpretation of Total Score: 8-9, consistent with Generalized anxiety disorder, > 15 nelda re 1. Feeling nervous, anxious, or on edge?: More than half the days 2. Not being able to stop or control worrying: More than half the days 3. Worrying too much about different things?: More than half the days 4. Trouble relaxing?: More than half the days 5. Being so restless that it is hard to sit still?: More than half the days 6. Becoming easily annoyed or irritable?: Several Days 7. Feeling afraid as if something awful might happen?: More than half the days PHQ-9 Depression Scale: PHQ-9 Total Score (Patient Health Questionnaire): 16 Interpretation of Total Score: 1-4 = Minimal depression, 5-9 = Mild depression, 10-14 = Mod erate depression, 15-19 = Moderately severe depression, 20-27 = Severe depression 1. Little interest or pleasure in doing things?: More than half the days 2. Feeling down, depressed, or hopeless: More than half the days 3. Trouble falling or staying asleep, or sleeping too much?: More than half the days 4. Feeling tired or having little energy?: More than half the days 5. Poor appetite or overeating: Several days 6. Feeling bad about yourself - or that you are a failure or have let yourself or your fami ly down?: More than half the days 7. Trouble concentrating on things, such as reading the newspaper or watching television: M ore than half the days 8. Moving or speaking so slowly that other people could have noticed. Or the opposite - dorys ng so fidgety or restless that you have been moving around a lot more than usual?: More than half the days 9. Thoughts that you would be better off , or of hurting yourself in some way?: Several days 10. Assessment/Plan: 1) Pain agreements signed - sent to PCP for signature 2) Mood/sleep questionnaire completed - Reviewed with patient; significant results include SULMA 7 score of 13 and PHQ9 score of 1 6 (both increased from last score of 7). She attributes a lot of this to current loss of job and is currently in the process of applying for and finding a new job. - Routed to PCP for review. 3) [place] State Prescription Monitoring Program - Report pulled and routed to PCP for review 4) Medication management - Reviewed max dose of tylenol 4000mg per day and encouraged patient to try and limit to 3 000mg or less per day if possible. - Patient was unsure when her Naxplanon was needing removed. I called Cas Rhodes' office and per his notes, the start date for Nexplanon was 03/05/2015, meaning it is due to be bucky anne in 2018. Follow-Up: RTC 1 year to renew pain agreements. Call sooner if needed. Thank you for the opportunity to participate in the care of this patient. Alessandra Mercedes Referring/Supervising Provider: Pj Abdi MD documented in this encounter Plan of Treatment Not on filedocumented as of this encounter Visit Diagnoses + + | Diagnosis | + + | Chronic pain syndrome | + + documented in this encounter
--- OUTSIDE RECORDS SUMMARY | ~2019-10-30 | XMS | Encounter Summary ---
Demographics + + + | Address | [address] | | | [place] [address] | + + + | Home Phone [...] | | | | | [place] [address] | | + + + + + | Ab Romykia | ECON | Unknown | | + + + + + Care Team Providers + +------+ + | Care Cup Setter Lockstitch Name | Role | Phone | + [...] + | 07/05/ | Refill | [facility] | Pj Abdi, | Medication Refill | | 2018 | | MEDICINE [facility] | [address] | | | | | [address] | [place] | | | | | [place] | [address] | | | | | [address] | | | | | | [phone] | | | +--------+--------+ + + + [...]
--- OUTSIDE RECORDS SUMMARY | ~2019-10-30 | XMS | Encounter Summary ---
Demographics + + + | Address | [address] | | | [place] [address] | + + + | Home Phone | | + + + | Preferred Language | Unknown | + + + | Marital Status | Single | + + + | Congregational Affiliation | 1013 | + + + | Race | Unknown | + + + | Ethnic Group | Unknown | + + + Author + + + | Author | [facility] | | | and Johnana | + + + | Organization | [facility] | | [...] | | | | | [place] [address] | | + + + + + | Ab Romykia | ECON | Unknown | | + + + + + Care Team Providers + +------+ + | Care Cushion Worker Name | Role | Phone | + +------+ + | Pj Abdi MD | PCP | | + +------+ + Reason for Visit +--------+ + | Reason | Comments | +--------+ + | ED | | +--------+ + Encounter Details +--------+ + + + + | Date | Type | Department | Care Team | Description | +--------+ + + + + | 05/26/ | Telephone | [facility] | Pj Abdi, | ED | | 2018 | | [facility] | [address] | | | | | [address] | [place] | | | | | [place] | [address] | | | | | [address] | | | | | | [phone] | | | +--------+ + + + [...]
--- OUTSIDE RECORDS SUMMARY | ~2019-10-30 | XMS | Encounter Summary ---
Demographics + + + | Address | [address] | | | [place] [address] | + + + | Home Phone | | + + + | Preferred Language | Unknown | + + + | Marital Status | Single | + + + | Episcopalian Affiliation | 1013 | + + + | Race | Unknown | + + + | Ethnic Group | Unknown | + + + Author + + + | Author | [facility] | | | and Johnana | + + + | Organization | [facility] | | [...] | | | | | [place] [address] | | + + + + + | Ab Bunch | ECON | Unknown | | + + + + + Care Team Providers + +------+ + | Care Manager Care Management Name | Role | Phone | + [...] | Specialty | Physical | Diagnoses | Jin, | | | | Services | Therapy / | Chronic low | Pj Hutson MD | Shruthi, | | | Required | Rehabilitatio | back pain, | [address] | Tito G, PT | | | | n | unspecified | [address] [place] | [address] | | | | | back pain | [place], [place] | [address] [place] | | | | | laterality, | [address] | [place], [place] | | | | | with | Phone: | [phone] Phone: | | | | | sciatica | [phone] | [phone] | | | | | presence | Fax: | Fax: | | | | | unspecified | [phone] | [phone] | | | | | Chronic | | | | | | | bilateral | | | | | | | thoracic | | | | | | | back pain | | | | | | | Procedures | | | | | | | pt eval | | | +--------+ + + + + + Reason for Visit + + + | Reason | Comments | + + + | Back Pain | | + + + Encounter Details +--------+---------+ + + + | Date | Type | Department | Care Team | Description | +--------+---------+ + + + | 06/23/ | Office | [facility] | Pj Abdi, | Chronic low back | | 2018 | Visit | [facility] [place] | [address] | pain, unspecified | | | | [address] | [place] | back pain | | | | [place] | [address] | laterality, with | | | | [address] | | sciatica presence | | | | [phone] | | unspecified (Primary | | | | | | Dx); DDD | | | | | | (degenerative disc | | | | | | disease), lumbar; | | | | | | Facet arthritis of | | | | | | lumbar region ([facility]); | | | | | | Urge incontinence; | | | | | | Stress incontinence; | | | | | | Moderate episode of | | | | | | recurrent major | | | | | | depressive disorder | | | | | | ([facility]); Generalized | | | | | | anxiety disorder; | | | | | | Whiplash injury to | | | | | | neck, subsequent | | | | | | encounter; Chronic | | | | | | bilateral thoracic | | | | | | back pain | +--------+---------+ + + + Social History [...] + | Blood Pressure | 100/60 | 06/23/2017 9:25 AM | | | | | PST | | + + + + + | Pulse | 96 | 06/23/2017 9:25 AM | | | | | PST | | + + + + + | Temperature | 36.7 C (98 F) | 06/23/2017 9:25 AM | | | | | PST | | + + + + + | Respiratory Rate | 16 | 06/23/2017 9:25 AM | | | | | PST | | + + + + + | Oxygen Saturation | 97% | 06/23/2017 9:25 AM | room air | | | | PST | | + + + + + | Inhaled Oxygen | - | - | | | Concentration | | | | + + + + + | Weight | 58.7 kg (129 lb 6.6 | 06/23/2017 9:25 AM | | | | oz) | PST | | + + + + + | Height | - | - | | + + + + + | Body Mass Index | 22.21 | 06/10/2017 5:23 PM | | | | | PST | | + + + + + documented in this encounter Progress Notes Pj Abdi MD - 06/23/2017 9:15 AM PSTFormatting of this note might be different fro m the original. Donna Camarena is a 21 y.o. female Chief Complaint: Back Pain HPI Donna is here to follow-up on continued back pain. Has reached therapy limit on hydrocodo ne. Will need other options. Leaks urine when back hurts. Has no showed appointments to uro logy. Remains on Gabapentin 300 mg capsule TID. Remains on Tizanidine 4 mg every 6 hours as needed. Has not needed the Hydroxyzine lately for anxiety. Remains on Effexor XR 150 mg daily. Fee ls her depression and anxiety have improved. Living situation improved. Has roof over her an d children's heads. Although brother has moved from [place] and is eating and living off of her and fiance. PREVENTIVE CARE/PRIOR VISITS 1. Any recommendations from Health Maintenance: Pap smear Preventative Services TOPIC LAST DONE NEXT DUE Vaccine: Influenza 01/21/2017 Cervical Cancer Screening (Pap Every 3 Years 21-64 ) 2014 Vaccine: Dtap/Tdap/Td 08/23/2013 08/24/2023 Vaccine: Hpv 11/30/2016 Vaccine: Pneumococcal 19-64 (Ppsv23 Only) Medium Risk 11/02/2016 2. Any immunizations necessary: Declines flu vaccine Immunization History Administered Date(s) Administered HPV 9-VALENT RECOMB VACCINE IM 11/30/2016 HPV, QUADRIVALENT, 3 DOSE (ADOL/ADULT) 08/18/2011, 12/02/2011 PNEUMOCOCCAL POLYSACCHARIDE 23-VALENT (PPSV23) 11/02/2016 TDAP, (ADOL/ADULT) 08/23/2013 3. Has patient been involved in medical events/hospitalizations since their last visit:no Allergies Allergen Reactions Dimetapp Cold-Allergy Hives and [...] has been changed since signin Order [facility] HYDROcodone-acetaminophen (NORCO) 5-325 mg per tablet (Taking) Take 1 tablet by mouth mai ry 6 hours as needed for Pain (for severe break through pain). Number of times this order has been changed since signin Order [facility] hydrOXYzine hydrochloride (ATARAX) 25 mg tablet (Taking) TAKE TWO TABLETS EVERY SIX HOURS NEEDED FOR ANXIETY OR ITCHING Number of times this order has been changed since signin Order [facility] naproxen (NAPROSYN) 500 mg tablet (Taking) TAKE ONE TABLET TWICE DAILY WITH BREAKFAST AND DINNER Number of times this order has been changed since signin Order [facility] ondansetron (ZOFRAN ODT) 4 mg disintegrating tablet (Taking) DISSOLVE ONE TABLET UNDER TH E TONGUE EVERY EIGHT HOURS NEEDED FOR NAUSEA Number of times this order has been changed since signin [facility] propranolol (INDERAL) 10 mg tablet (Taking) Take 1 tablet by mouth 2 times daily. Number of times this order has been changed since signin Order [facility] tiZANidine (ZANAFLEX) 4 mg tablet (Taking) Take 1 tablet by mouth every 6 hours as needed . Number of times this order has been changed since signin [facility] traZODone (DESYREL) 100 mg tablet (Taking) Take 0.5-1 tablet nightly as needed for sleep Number of times this order has been changed since signin [facility] venlafaxine (EFFEXOR XR) 150 mg 24 hr capsule (Taking) Take 1 capsule by mouth Daily. Number of times this order has been changed since signin Order [facility] Past Medical History She has a past [...] 2 Years of education: G.E.D. Occupational History [employer] UNEMPLOYED Social History Main Topics Smoking [...] swelling. Gastrointestinal: Positive for nausea. Negative for constipation, diarrhea and vomiting. Genitourinary: Negative for dysuria, frequency and urgency. Musculoskeletal: Positive for back pain. Neurological: Negative for dizziness and light-headedness. Objective: Vitals: 06/23/17 0925 BP: 100/60 Pulse: 96 Resp: 16 Temp: 36.7 C (98 F) TempSrc: Temporal SpO2: 97% Weight: 58.7 kg (129 lb 6.6 oz) Physical Exam Constitutional: She is oriented to person, place, and time. She appears well-developed and well-nourished. No distress. Appropriately dressed and groomed HENT: Head: Normocephalic and atraumatic. Eyes: Conjunctivae are normal. Cardiovascular: Normal rate and regular rhythm. Pulmonary/Chest: Effort normal and breath sounds normal. Musculoskeletal: She exhibits no edema. Neurological: She is alert and oriented to person, place, and time. Skin: Skin is warm and dry. Psychiatric: She has a normal mood and affect. Her behavior is normal. Nursing note and vitals reviewed. Results for orders placed or performed in visit on 03/29/17 POCT Urinalysis Dipstick Automated Result Value Ref Range Color, UA, POC Yellow Yellow, Light Yellow Clarity, UA, POC Clear Glucose, UA, POC Negative Negative Bilirubin, UA, POC Negative Negative Ketones, UA, POC Negative Negative, 100 mg/dL Specific Gary, UA, POC 1.015 1.001 - 1.030 Blood, UA, POC Negative Negative pH, UA, POC 7.5 5.0, 6.0, 7.0, 8.0, 5.5, 6.5, 7.5 Protein, UA, POC Negative Negative Urobilinogen, UA, POC 0.2 0.2, Negative, Normal, < 0.2 mg/dL, 1 mg/dL, < 0.2 E.U./dl, 1.0 E.U./dL, 0.2 mg/dL Nitrite, UA, POC Negative Negative Leukocyte Esterase, UA, POC Trace (A) Negative RED SUB UA ICTOTEST Negative REMARK Assessment and Plans: 1. Chronic low back pain, unspecified back pain laterality, with sciatica presence unspecif ied 2. DDD (degenerative disc disease), lumbar 3. Facet arthritis of lumbar region (HCC) Thoracic back pain As mentioned above patient may no longer take chronic/routine hydrocodone. Continue Gabapen tin and Tizanidine. Referral to physical therapy placed for thorasic back pain. Warned patie nt about strict no show policy. Advised setting up appointment when she knows she will be av ailable. Continue Tizanidine. Continue Gabapentin. [facility] - [facility] Referral 4. Urge incontinence I suspect that her bladder is more irritable when her back hurts. She has had multiple MRIs in the last year which show absolutely no cauda equina features. Patient to start small dos e Ditropan 5 mg daily for urge incontinence. Prescription sent to pharmacy today. You can al so take medication as needed in lieu of daily use.. - oxybutynin (DITROPAN XL) 5 mg 24 hr tablet; Take 1 tablet by mouth Daily. Dispense: 30 t ablet; Refill: 0 5. Stress incontinence Advised patient that once she is done having children she can have bladder repair surgery. Advised monitoring for now. Not really any treatment except surgical. 6. Moderate episode of recurrent major depressive disorder (HCC) 7. Generalized anxiety disorder Well controlled. Remains on Effexor XR 150 mg daily. Rare use of Hydroxyzine. Patient to co ntinue as directed. No medication changes today. 8. Whiplash injury to neck, subsequent encounter Routinely refilled prescription and sent to pharmacy today. - tiZANidine (ZANAFLEX) 4 mg tablet; Take 1 tablet by mouth every 6 hours as needed. Dispe nse: 30 tablet; Refill: 3 I Meme Puente am acting as a scribe on behalf of, and in the presence of Pj Abdi MD. Meme OCASIO I, Dr. Pj Abdi, personally performed the services described in this documentation, as scribed in my presence and it is both accurate and complete. Pj Abdi MD 06/23/17 documented in this en counter Plan of Treatment + + +--------+ + + | Name | Type | Priori | Associated Diagnoses | Order Schedule | | | | ty | | | + + +--------+ + + | * [facility] | Outpatient | Routin | Chronic low back | Ordered: 06/23/2017 | | Therapy - AMB | Referral | e | pain, unspecified | | | Referral | | | back pain | | | | | | laterality, with | | | | | | sciatica presence | | | | | | unspecified Chronic | | | | | | bilateral thoracic | | | | | | back pain | | + + +--------+ + + documented as of this encounter Procedures + +--------+ + + + | Procedure Name | Priori | Date/Time | Associated Diagnosis | Comments | | | ty | | | | + +--------+ + + + | PATHOLOGY - EXTERNAL | | 05/31/2016 | | Results for this | | SCAN | | 12:00 AM | | procedure are in the | | | | PST | | results section. | + +--------+ + + + documented in this encounter Results PATHOLOGY - EXTERNAL SCAN (05/31/2016 12:00 AM PST) + + + | Narrative | Performed At | + + + | Ordered by an | | | unspecified provider. | | + + + documented in this encounter Visit Diagnoses + + | Diagnosis | + + | Chronic low back pain, unspecified back pain laterality, with sciatica presence | | unspecified - Primary | + + | DDD (degenerative disc disease), lumbar Degeneration of lumbar or lumbosacral | | intervertebral disc | + + | Facet arthritis of lumbar region Lumbosacral spondylosis without myelopathy | + + | Urge incontinence | + + | Stress incontinence | + + | Moderate episode of recurrent major depressive disorder (HCC) | + + | Generalized anxiety disorder | + + | Whiplash injury to neck, subsequent encounter | + + | Chronic bilateral thoracic back pain | + + documented in this encounter"
--- OUTSIDE RECORDS SUMMARY | ~2019-10-30 | XMS | Encounter Summary ---
Demographics + + + | Address | [address] | | | [place] [address] | + + + | Home Phone [...] | | | | | [place] [address] | | + + + + + | Ab Romykia | ECON | Unknown | | + + + + + Care Team Providers + +------+ + | Care Alteration Inspector Name | Role | Phone | + +------+ + PCP | Unavailable | + +------+ + Encounter Details +--------+ + + + + | Date | Type | Department | Care Team | Description | +--------+ + + + + | 05/01/ | Hospital | [facility] | Mukesh Coppola | | | 2008 - | Encounter | [facility] | MD [address] | | | | CENTER [address] | [address] | | | 05/02/ | | [place], [place] | [place] [address] | | | 2008 | | [address] | [phone] | | | | | [phone] | | | +--------+ + + + [...]
--- OUTSIDE RECORDS SUMMARY | ~2019-10-30 | XMS | Encounter Summary ---
Demographics + + + | Address | [address] | | | [place] [address] | + + + | Home Phone [...] | | | | | [place] [address] | | + + + + + | Ab Romykia | ECON | Unknown | | + + + + + Care Team Providers + +------+ + | Care Rip Sawyer Name | Role | Phone | + +------+ + | Pj Abdi MD | PCP | | + +------+ + Reason for Visit + + + | Reason | Comments | + + + | Neck Pain | | + + + | Dizziness | | + + + | Weakness | | + + + Encounter Details +--------+---------+ + + + | Date | Type | Department | Care Team | Description | +--------+---------+ + + + | 05/08/ | Office | [facility] | Pj Abdi, | Behavior disturbance | | 2019 | Visit | [facility] | [address] | (Primary Dx); | | | | [address] | [place], [place] | Moderate episode of | | | | [place], [place] | [address] | recurrent major | | | | [address] | | depressive disorder | | | | [phone] | | ([facility]); Generalized | | | | | | anxiety disorder; | | | | | | Borderline | | | | | | personality disorder | | | | | | ([facility]); Neck pain; | | | | | | Cervical radicular | | | | | | pain | +--------+---------+ + + + Social [...] + + + | Blood Pressure | 108/62 | 05/08/2019 3:25 PM | | | | | PST | | + + + + + | Pulse | 89 | 05/08/2019 3:25 PM | | | | | PST | | + + + + + | Temperature | 36.3 C (97.3 F) | 05/08/2019 3:25 PM | | | | | PST | | + + + + + | Respiratory Rate | 16 | 05/08/2019 3:25 PM | | | | | PST | | + + + + + | Oxygen Saturation | 100% | 05/08/2019 3:25 PM | | | | | PST | | + + + + + | Inhaled Oxygen | - | - | | | Concentration | | | | + + + + + | Weight | 53.5 kg (117 lb 15.1 | 05/08/2019 3:25 PM | | | | oz) | PST | | + + + + + | Height | 162.6 cm (5' 4") | 05/08/2019 3:25 PM | | | | | PST | | + + + + + | Body Mass Index | 20.25 | 05/08/2019 3:25 PM | | | | | PST | | + + + + + documented in this encounter Progress Notes Pj Abdi MD - 05/08/2019 3:30 PM PSTFormatting of this note might be different fro m the original. Donna Camarena is a 23 y.o. female Chief Complaint: Neck Pain; Dizziness; and Weakness HPI Patient is here today for neck pain, dizziness, and right arm Patient was in the ED yesterday 05/07/19 for strain of lumbar region. States she had bladde r incontinence yesterday. Neck pain is recurrent from degenerative disc disorder, however, the dizziness and right ar m weakness with tingling and sharp shooting pains from the shoulder to finger tips, she stat es she is having a hard time keeping a hold on things she is dropping things all the time. Reports that the sharp pain starts in the neck and radiates down through the shoulder all th e way down the arm and into her fingers. When I ask which fingers are mostly involved she r eports that it is the third and the fourth finger on that right hand. Patient also reports that she gets a sharp muscle stabbing type pain close to the left shou lder blade. She reports that she just typically takes ibuprofen or Tylenol to control this. Patient would like to discuss her weight. States her weight has been fluctuating between 12 0-140lbs Today her weight is 117lb 15.1 oz Patient would like to discuss medications and how they are not working. States her anxiety is getting worse. Buspar 5mg TID PRN Remeron 7.5mg nightly Patient reports that she continues on Suboxone treatment and is being seen twice weekly. S he reports that she is going to [facility] on a regular basis. They are ch anging the counselor who is going to be seeing her son and her for family counseling. They have identified a counselor also an [facility] for this but the appointment has not been s et up per the patient. She reports that she has been on Prozac and Zoloft in the past and felt that it was not hel pful she had side effects. Patient reports that when she was on Xanax 0.25 mg this was not helpful for her anxiety. Patient reports that she feels anxious 13/12 and it feels very over whelming for her. PHQ-9 (Patient Health Questionnaire Depression Screening 09/26/2018 10/17/2018 05/08/2019 PHQ-9 Little interest or pleasure in doing things? 2 2 3 PHQ-9 Feeling down, depressed, or hopeless? 1 1 3 PHQ-9 Trouble falling or staying asleep, or sleeping too much? 3 1 3 PHQ-9 Feeling tired or having little energy? 2 2 3 PHQ-9 Poor appetite or overeating? 2 2 3 PHQ-9 Feeling bad about yourself - or that you are a failure or have let yourself or your f amily down? 2 1 3 PHQ-9 Trouble concentrating on things, such as reading the newspaper or watching television ? 2 2 2 PHQ-9 Moving or speaking so slowly that other people could have noticed. Or the opposite - being so fidgety or restless that you have been moving around a lot more than usual? 2 2 2 PHQ-9 Thoughts that you would be better off , or of hurting yourself in some way? 0 0 2 PHQ-9 Total Score (Patient Health Questionnaire) 16 13 24 PHQ-9 If you checked off any problems, how difficult have these problems made it for you to do your work, take care of things at home, or get along with other people? 3 2 3 SULMA-7 (General Anxiety Disorder) 09/26/2018 10/17/2018 05/08/2019 1. Feeling nervous, anxious, or on edge? 3 3 3 2. Not being able to stop or control worrying? 3 3 3 3. Worrying too much about different things? 3 3 3 4. Trouble relaxing? 3 2 3 5. Being so restless that it is hard to sit still? 3 2 3 6. Becoming easily annoyed or irritable? 2 3 3 7. Feeling afraid as if something awful might happen? 1 1 2 SULMA-7 Score (General Anxiety Disorder) 18 17 20 8. How difficult have these problems made it for you to do your work, take care of things a t home, or get along with other people? (Functional Status) 2 2 3 PREVENTIVE CARE/PRIOR VISITS - Any recommendations from Health Maintenance: Health Maintenance Due Topic Date Due Cervical Cancer Screening (Pap) 05/31/2019 Preventative Services TOPIC LAST DONE NEXT DUE Vaccine: Influenza 01/21/2019 Cervical Cancer Screening (Pap) 05/31/2016 05/31/2019 Vaccine: Dtap/Tdap/Td 08/23/2013 08/24/2023 Vaccine: Hpv 11/30/2016 Vaccine: Pneumococcal 19-64 11/02/2016 Allergies Allergen Reactions Dimetapp Cold-Allergy Hives and Rash Meloxicam Hives, Anxiety and Rash Nortriptyline Other (See Comments) INEFFECTIVE Medications: Patient Reported Taking Dosage busPIRone (BUSPAR) 5 mg tablet (Taking) TAKE 1 TABLET BY MOUTH THREE TIMES DAILY NEEDED (ANXIETY). Number of times this order has been changed since signin [facility] [place] gabapentin (NEURONTIN) 300 mg capsule (Taking) TAKE TWO CAPSULES THREE TIMES A DAY Number of times this order has been changed since signin [facility] [place] ibuprofen (ADVIL, MOTRIN) 200 mg tablet (Taking) Take 400 mg by mouth every 6 hours as nee ded for Pain. mirtazapine (REMERON) 7.5 MG tablet (Taking) TAKE 1 TABLET BY MOUTH NIGHTLY. Number of times this order has been changed since signin [facility] [place] Multiple Vitamins-Minerals (ONE DAILY WOMENS 50 PLUS PO) (Taking) Take by mouth. naproxen (NAPROSYN) 500 mg tablet (Taking) TAKE ONE TABLET TWICE A DAY WITH BREAKFAST AND DINNER Number of times this order has been changed since signin [facility] [place] ondansetron (ZOFRAN) 4 mg tablet (Taking) TAKE ONE TABLET EVERY 8 HOURS NEEDED FOR NAUS EA Number of times this order has been changed since signin [facility] [place] SUBOXONE 8-2 MG SL film (Taking) 12 mg Daily. Past Medical History She has a past medical history of Anxiety, Chronic low back pain (09/21/2016), DDD (degenerat aleisha disc disease), lumbar (09/21/2016), Depression, Environmental allergies, Facet arthritis o f lumbar region (09/21/2016), PONV (postoperative nausea and vomiting), Scoliosis, and Wears d entures. Past Surgical History She has a past surgical history that includes Appendectomy (2011); ovarian cyst removal (11 05); laparoscopy (N/A, 06/16/2015); Salpingo-oophorectomy (Right, 03/11/2016); ovarian cyst r emoval (2013); and mina and bso (Right, 02/2016). Family History: Her family history includes Alcohol abuse in her mother; Cervical cancer in her mother; Men rachael illness in her mother; No known problems in her child, child, father, maternal grandfath er, maternal grandmother, paternal grandfather, and paternal grandmother. Social History: Social History Socioeconomic History Marital status: Single Spouse name: DOT CARD Number of children: 2 Years of education: G.E.D. 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 Negative for fever. HENT: Negative for sinus pressure and sinus pain. Respiratory: Positive for chest tightness and shortness of breath. Negative for wheezing. Cardiovascular: Negative for chest pain and palpitations. Gastrointestinal: Positive for abdominal pain and nausea. Negative for vomiting. Genitourinary: Positive for frequency. Musculoskeletal: Positive for arthralgias, back pain, myalgias and neck pain. Neurological: Positive for dizziness, weakness, light-headedness and headaches. Psychiatric/Behavioral: Positive for agitation, dysphoric mood, self-injury and sleep distu rbance. The patient is nervous/anxious. Objective: Vitals: 05/08/19 1525 BP: 108/62 Pulse: 89 Resp: 16 Temp: 36.3 C (97.3 F) TempSrc: Temporal SpO2: 100% Weight: 53.5 kg (117 lb 15.1 oz) Height: 1.626 m (5' 4") Body mass index is 20.25 kg/m. Physical Exam Constitutional: She is oriented to person, place, and time. Appropriately dressed and groomed Patient was calm and collected at the beginning of the appointment and then became more and more agitated towards the end of the appointment. HENT: Head: Normocephalic and atraumatic. Eyes: Conjunctivae are normal. Musculoskeletal: General: No edema. Neurological: She is alert and oriented to person, place, and time. Skin: Skin is warm and dry. Psychiatric: Her mood appears anxious. Her affect is angry and labile. She is agitated and aggressive. She expresses impulsivity. She exhibits a depressed mood. Nursing note and vitals reviewed. Ortho Exam Results for orders placed or performed during the hospital encounter of 05/07/19 Urinalysis with Microscopic with Culture if Indicated Result Value Ref Range Color Yellow Light Yellow, Yellow, Straw Clarity Hazy (A) Clear pH, Urine 5.0 5.0 - 8.0 Specific [place] 1.004 1.001 - 1.030 Protein, Urine Negative Negative Blood, Urine Negative Negative Glucose, Urine Negative Negative Ketones, Urine Negative Negative Bilirubin, Urine Negative Negative Nitrite, Urine Negative Negative Leukocyte Esterase, Urine Negative Negative Urobilinogen, Urine Negative 0.2 mg/dL, 1.0 mg/dL, Negative WBC UA 0-2 0 - 2 /HPF RBC UA 0-2 0 - 2 /HPF SQUAMOUS EPITHELIAL UA >100 (A) 0 - 2 /LPF BACTERIA UA 1+ (A) Negative /HPF MUCUS UA Present (A) Negative /LPF URINE COMMENT Urine Culture Not Indicated Drugs of Abuse, Screen, Urine Result Value Ref Range Amphetamine Screen, Urine Negative Negative Barbiturates Screen, Urine Negative Negative Benzodiazepines Screen, Urine Negative Negative Cannabinoids Screen, Urine Negative Negative Cocaine Screen, Urine Negative Negative Methadone Screen, Urine Negative Negative Opiates Screen, Urine Negative Negative Assessment: 1. Behavior disturbance 2. Moderate episode of recurrent major depressive disorder (HCC) 3. Generalized anxiety disorder 4. Borderline personality disorder (HCC) 5. Neck pain 6. Cervical radicular pain Plans: This was a very unfortunate appointment. We thoroughly explored her symptoms of her neck a nd right arm pain and then transitioned into talking about her anxiety and depression and op tions for treatment. Prior to being able to complete a physical exam on the neck or the arm the patient became very agitated. During the visit we were talking about different options for changing her medications to he lp with her anxiety. I reviewed the option of increasing the Remeron from 7.5 mg on up. I reviewed with her that often at a low dosage this is helpful for sleep but often times we ne ed to increase the dosage significantly to treat to both depression and anxiety. Patient be came very angry. I also recommended that we consider changing the buspirone that she ignacia mullins has at 5 mg/dose and increasing this up to 10 to 15 mg per dose. Patient flatly refused to do so stating that she would not take a medication that was not working for her. I srinivasan avila reminded her that sometimes it is not working because the dosage is not appropriate and I would love to help her. As patient continued to escalate I also offered that other options we had on the table would be to add a separate independent medication such as Paxil to william t her depression and anxiety in addition to what she is taking. By this point the patient w ill continue to escalate. She then became a very foul mouth and accusatory. She threw hers elf against the wall hitting her head and her back twice. Staff came running it to check to ensure that all was safe within the room. I asked the patient to control herself that I wo uld love to move forward with helping her with her anxiety. I reviewed that we had 3 option s of which included maximizing the dosages on the medicines that she currently has, switchin g to new medications, or stopping all medications as she kept saying that nothing was helpin g her. 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 I declined to give her a prescription for lorazepam. She became argumentative w ith me stating that she was treated poorly because she has a history of drug use. I reviewe d with her that lorazepam should not be used for anxiety on a regular basis for those with a ddiction and those without addiction. Multiple attempts were used to help refocus the rasheed barrow and help engage her in the multiple options that I have for her. She was not interested in any of this and as she was continuing to escalate and continue to be accusatory and follo w mouth I told Donna that we were going to have to stop the appointment for today. Regina adam started screaming got up out of her chair and stomped out of the room yelling at the top o f her voice. I, Dr. Pj Abdi, personally performed the services described in this documentation, as scribed in my presence and it is both accurate and complete. Pj Abdi MD 05/08/19 documented in this e ncounter Plan of Treatment Not on filedocumented as of this encounter Visit Diagnoses + + | Diagnosis | + + | Behavior disturbance - Primary Unspecified disturbance of conduct | + + | Moderate episode of recurrent major depressive disorder (HCC) | + + | Generalized anxiety disorder | + + | Borderline personality disorder (HCC) Borderline personality disorder | + + | Neck pain Cervicalgia | + + | Cervical radicular pain Brachial neuritis or radiculitis nos | + + documented in this encounter
--- OUTSIDE RECORDS SUMMARY | ~2019-10-30 | XMS | Encounter Summary ---
Demographics + + + | Address | [address] | | | [place] [address] | + + + | Home Phone [...] | | | | | [place] [address] | | + + + + + | Ab Bunch | ECON | Unknown | | + + + + + Care Team Providers + +------+ + | Care Production Scheduler Name | Role | Phone | + +------+ + | Charles Allen MD | PCP | | + +------+ + Reason for Visit + + + | Reason | Comments | + + + | Discharge Without | | | Visit | | + + + Encounter Details +--------+ + + + + | Date | Type | Department | Care Team | Description | +--------+ + + + + | 09/04/ | Documentati | [facility] | Ta Salcedo | Discharge Without | | 2020 | on | [facility] | J, PT [address] | Visit | | | | [address] | [address] [place] | | | | | [place] | [address] | | | | | [address] | | | | | | [phone] | | | +--------+ + + + [...] documented as of this encounter Progress Notes Ta Salcedo, PT - 09/05/2019 9:59 AM PDT [facility] [address] [place] [id number] Physical Therapy Discharge Note This discharge is associated with the evaluation completed on 07/17/2019. Date: 09/05/2019 Patient Information Patient Name: Donna Camarena Date of : 1995 Age: 24 y.o. Encounter Diagnoses Code Name Primary? M25.531 Right wrist pain Date of Onset: 06/04/2019 Referring Provider: Charles Allen MD Last date and total # of PT Visits: 1 (07/17/2019 4:29 PM) Patient has not returned to therapy for further treatment. Goal status is unknown at this t adriana. This note serves as discharge from therapy. Patient did not show for appointments and had multiple cancellations. At this time we find it necessary to discharge this patient from therapy services. The last progress note or the patients initial evaluation will serve as objective status fo r purposes of discharge. Electronically signed by: Kei Salcedo, PT, 09/05/2019 10:00 AM Patient Name: Donna Camarena/: 1995/ documented in thi s encounter Plan of Treatment Not on filedocumented as of this encounter Visit Diagnoses + + | Diagnosis | + + | Right wrist pain Pain in joint, forearm | + + documented in this encounter"
--- OUTSIDE RECORDS SUMMARY | ~2019-10-30 | XMS | Encounter Summary ---
Demographics + + + | Address | [address] | | | [place] [address] | + + + | Home Phone [...] [address] | | | | | [place] [address] | | + + + + + | Ab Bunch | ECON | Unknown | | + + + + + Care Team Providers + +------+ + | Care Printer [employer] Name | Role | Phone | + [...] +--------+ + + + + + | Denied | Specialty | Orthopedic | Diagnoses | Vicente, | [facility] | | | Services | Surgery | Strain of | Jill | Orthopedic | | | Required | | left | Karla, ANGEL | Surgery [address] | | | | | shoulder, | [address] | | | | | subsequent | [address] | [place], | | | | | encounter | [place] | [place] | | | | | Work related | [place] | [address] | | | | | injury | [address] | Phone: | | | | | | Phone: | [phone] | | | | | | [phone] | Fax: | | | | | | Fax: | [phone] | | | | | | [phone] | | +--------+ + + + + + Encounter Details +--------+ + + + + | Date | Type | Department | Care Team | Description | +--------+ + + + + | 06/26/ | Orders Only | [facility] [place] | Jill Zhang | Strain of left | | 2020 | | [facility] | [address] | shoulder, subsequent | | | | [facility] [address] | encounter (Primary | | | | [address] [place] | [place], [place] | Dx); Work related | | | | [place], [place] | [address] | injury | | | | [address] | | | | | | [phone] | | | +--------+ + + + [...] of this encounter Plan of Treatment + + +--------+ + + | Name | Type | Priori | Associated Diagnoses | Order Schedule | | | | ty | | | + + +--------+ + + | Referral to [facility] | Outpatient | Routin | Strain of left | Ordered: 06/26/2019 | | [place] [facility] | Referral | e | shoulder, subsequent | | | Surgery | | | encounter Work | | | | | | related injury | | + + +--------+ + + documented as of this encounter Visit Diagnoses + + | Diagnosis | + + | Strain of left shoulder, subsequent encounter - Primary | + + | Work related injury Injury, other and unspecified, unspecified site | + + documented in this encounter"
--- OUTSIDE RECORDS SUMMARY | ~2019-10-30 | XMS | Encounter Summary ---
Demographics + + + | Address | [address] | | | [place] [address] | + + + | Home Phone [...] | | | | | [place] [address] | | + + + + + | Absweta Bunch | ECON | Unknown | | + + + + + Care Team Providers + +------+ + | Care Funeral Planning Counselor Name | Role | Phone | + +------+ + | Pj Abdi MD | PCP | | + +------+ + Reason for Visit + + + | Reason | Comments | + + + | Muscle Pain | all over | + + + Encounter Details +--------+---------+ + + + | Date | Type | Department | Care Team | Description | +--------+---------+ + + + | 10/17/ | Office | [facility] | Pj Abdi, | Fibromyalgia | | 2019 | Visit | [facility] [place] | [address] | (Primary Dx); | | | | [address] | [place] | Patellofemoral pain | | | | [place] | [address] | syndrome of both | | | | [address] | | knees | | | | [phone] | | | +--------+---------+ + + + [...] + + + | Blood Pressure | 104/62 | 10/17/2018 4:30 PM | | | | | PDT | | + + + + + | Pulse | 89 | 10/17/2018 4:30 PM | | | | | PDT | | + + + + + | Temperature | 36.6 C (97.9 F) | 10/17/2018 4:30 PM | | | | | PDT | | + + + + + | Respiratory Rate | 16 | 10/17/2018 4:30 PM | | | | | PDT | | + + + + + | Oxygen Saturation | 95% | 10/17/2018 4:30 PM | | | | | PDT | | + + + + + | Inhaled Oxygen | - | - | | | Concentration | | | | + + + + + | Weight | 54.1 kg (119 lb 4.3 | 10/17/2018 4:30 PM | | | | oz) | PDT | | + + + + + | Height | - | - | | + + + + + | Body Mass Index | 20.47 | 05/08/2018 6:41 PM | | | | | PST | | + + + + + documented in this encounter Patient Instructions Patient Instructions Meme Puente Cert MA - 10/17/2018 4:15 PM PDTCome back next week fo r physical therapy band and directions. I will have it up front. documented in this encounter Progress Notes Pj Abdi MD - 10/17/2018 4:15 PM PDTFormatting of this note might be different fro m the original. Donna Camarena is a 23 y.o. female Chief Complaint: Muscle Pain (all over) HPI Donna presents today to follow-up on recent laboratories. Pain thought to be Fibromyalgia but wanted to rule out R/A. Has been out of Gabapentin and Naproxen for about a week. It just helps a little and latel y not as much as it was helping. Had to drop from 1800 mg to 900 mg daily due to suboxone, n oticed a big spike in her pain. General Anxiety Disorder (SULMA-7): Total Score 17 (10/17/18 1600) (8-9 = consistent with Generalized anxiety disorder, >15 = severe) PHQ9 Depression scale: Date of Last Screening Total Score 13 (10/17/18 1600) (1-4 = Minimal depression, 5-9 = Mild depression, 10-14 = Moderate depression, 15-19 = Mode rately severe depression, 20-27 = Severe depression) Left Knee pain: worse with cold weather and weather changes. Can hear snapping and popping. Pain located through out entire knee. PREVENTIVE CARE/PRIOR VISITS - Any recommendations from [...] Dosage busPIRone (BUSPAR) 5 mg tablet (Taking) Take 1 tablet by mouth 3 times daily as needed (a nxiety). Number of times this order has been changed since signin Order Audit Dierks gabapentin (NEURONTIN) 300 mg capsule (Taking) TAKE TWO CAPSULES THREE TIMES A DAY Number of times this order has been changed since signin Order Audit Dierks ibuprofen (ADVIL, MOTRIN) 200 mg tablet (Taking) Take 400 mg by mouth every 6 hours as ne eded for Pain. mirtazapine (REMERON) 7.5 MG tablet (Taking) Take 1 tablet by mouth nightly. 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 Negative for fever. HENT: Negative for trouble swallowing and voice change. Eyes: Positive for visual disturbance (coming out of convenience store and vision went yudith k). Respiratory: Negative for chest tightness and shortness of breath (smoker). Cardiovascular: Negative for chest pain, palpitations and leg swelling. Gastrointestinal: Positive for nausea. Negative for constipation, diarrhea and vomiting. Genitourinary: Negative for dysuria, frequency and urgency. Musculoskeletal: Positive for myalgias. Neurological: Negative for dizziness, syncope and light-headedness. Objective: Vitals: 10/17/18 1630 BP: 104/62 Pulse: 89 Resp: 16 Temp: 36.6 C (97.9 F) SpO2: 95% Weight: 54.1 kg (119 lb 4.3 oz) Body mass index is 20.47 kg/m. Physical Exam Constitutional: She is oriented to person, place, and time. She appears well-developed and well-nourished. No distress. Appropriately dressed and groomed HENT: Head: Normocephalic and atraumatic. Eyes: Conjunctivae are normal. Musculoskeletal: She exhibits no edema. Right knee: She exhibits abnormal patellar mobility (tenderness on proximal pateller t endon bilaterally). Tenderness found. No medial joint line, no lateral joint line, no MCL, n o LCL and no patellar tendon tenderness noted. Left knee: Tenderness found. Neurological: She is alert and oriented to person, place, and time. Skin: Skin is warm and dry. Psychiatric: She has a normal mood and affect. Her behavior is normal. Nursing note and vitals reviewed. Ortho Exam Results for orders placed or performed in visit on 09/26/18 CBC with Differential Result Value Ref Range WBC 9.8 4.0 - 11.0 K/uL RBC 3.86 3.70 - 5.20 M/uL Hemoglobin 11.9 11.5 - 16.0 g/dL Hematocrit 36.2 34.0 - 47.0 % MCV 93.8 83.0 - 101.0 fL MCH 30.8 28.0 - 35.0 pg MCHC 32.9 32.0 - 36.0 g/dL RDW-CV 13.5 <15.0 % RDW-SD 47.0 (H) 35.1 - 46.3 fL Platelet Count 446 (H) 140 - 440 K/uL MPV 9.4 6.5 - 12.4 fL % Neutrophils 76.1 45.0 - 82.0 % % Lymphocytes 18.7 (L) 20.0 - 45.0 % % Monocytes 2.7 (L) 4.0 - 12.0 % % Eosinophils 2.2 0.0 - 5.0 % % Basophils 0.2 0.0 - 1.0 % % Immature Granulocytes 0.1 0.0 - 0.4 % Absolute Neutrophils 7.44 1.80 - 8.50 K/uL Absolute Lymphocytes 1.83 0.60 - 3.20 K/uL Absolute Monocytes 0.26 0.00 - 1.00 K/uL Absolute Eosinophils 0.22 0.00 - 0.40 K/uL Absolute Basophils 0.02 0.00 - 0.10 K/uL Absolute Immature Granulocytes 0.01 0.00 - 0.03 K/uL Comprehensive Metabolic Panel Result Value Ref Range Na 140 136 - 145 mmol/L K 4.1 3.5 - 5.1 mmol/L Cl 103 98 - 107 mmol/L CO2 28 21 - 32 mmol/L Anion Gap 9 2 - 16 mmol/L Glucose 76 74 - 106 mg/dL BUN 5 (L) 7 - 18 mg/dL Creatinine 0.74 0.55 - 1.02 mg/dL eGFR if not >60 >=60 mL/min/1.73m2 Ca 8.9 8.5 - 10.1 mg/dL Albumin 4.3 3.4 - 5.0 g/dL Bilirubin Total 0.6 0.2 - 1.0 mg/dL Total Protein 7.2 6.4 - 8.2 g/dL AST 14 (L) 15 - 37 U/L ALT 15 14 - 59 U/L Alkaline Phosphatase 88 46 - 116 U/L Globulin 2.9 2.1 - 3.8 g/dL Albumin/Globulin Ratio 1.5 0.8 - 2.0 BUN/Creatinine Ratio 6.8 RHONDA Qual, EIA, Reflex Result Value Ref Range RHONDA Screen, Qual Negative Negative C-Reactive Protein Result Value Ref Range C-Reactive Protein 10.4 (H) 0.0 - 9.0 mg/L Rheumatoid Factor, Quant Result Value Ref Range RHEUMATOID FACTOR <10.0 0.0 - 13.9 IU/mL Sedimentation rate, automated Result Value Ref Range ESR 11 <20 mm/hr Tissue Transglutaminase (IgA + IgG) Result Value Ref Range Tissue Transglutaminase IgA <2 0 - 3 U/mL Tissue Transglutaminase IgG <2 0 - 5 U/mL Smooth Muscle Ab Result Value Ref Range Smooth Muscle Ab 5 0 - 19 Units CCP Antibodies, IgG IgA Result Value Ref Range Cyclic Citrullin Peptide Ab 4 0 - 19 units HIV AG/AB, 4th Gen, Reflex Result Value Ref Range HIV 1/2 Ab and P24 Ag Non Reactive Non Reactive Hepatitis C Ab Result Value Ref Range Hepatitis C Ab <0.1 0.0 - 0.9 s/co ratio Extra Gold Top Tube Result Value Ref Range Extra Gold Top Tube Done Assessment: 1. Fibromyalgia 2. Patellofemoral pain syndrome of both knees Plans: 1. Fibromyalgia Reassured patient labs for R/A were negative. Patient with known degenerative disc disease. Suspect fibromyalgia due to location and description of pain. Discussed hyperalgia, people with chronic pain become sensitized to any sensation of pain even if it should not cause aixa n. Need to re-teach body pain gradations so the body can interpret different levels of pain appropriately. Each week can increase exercise by just a little so body can get used to bein g active. Be more active in small increments. Work your way up to specific level of activity . Will continue to monitor pain. 2. Patellofemoral pain syndrome of both knees On exam chondro malacia/patellofemoral syndrome of bilateral knees. Reassured not dangerous . Thigh stretches demonstrated. Ham string stretches also recommended. Both area's pull on k nee cap. Need to strengthen thigh muscles can use rubber bands. Should see improvement in kn ee pain. Can refer to physical therapy. Patient to let me know when she would like to do thi s. Will get a band from physical therapy and put it up front for her to pick up driver along with javier veloz. Will check into Gabapentin dosing with Suboxone with pharmacist. Follow-up: Return in about 1 month (around 11/14/2018) for knee pain/ fibromyalgia. I, Luis Carlos August MA, am acting as a scribe on behalf of, and in the presence of MD Meme Chanel Cert MA 10/17/2018 I, Dr. Pj Abdi, personally performed the services described in this documentation, as scribed in my presence and it is both accurate and complete. Pj Abdi MD 10/20/18 documented in this e ncounter Plan of Treatment Not on filedocumented as of this encounter Visit Diagnoses + + | Diagnosis | + + | Fibromyalgia - Primary Mylagia and myositis, unspecified | + + | Patellofemoral pain syndrome of both knees | + + documented in this encounter"
--- OUTSIDE RECORDS SUMMARY | ~2019-10-30 | XMS | Encounter Summary ---
Demographics + + + | Address | [address] | | | [place] [address] | + + + | Home Phone [...] | | | | | [place] [address] | | + + + + + | Ab Bunch | ECON | Unknown | | + + + + + Care Team Providers + +------+ + | Care Ad Operations Associate Name | Role | Phone | [...] + | 01/07/ | Office | [facility] | Magdalena Grimes, | Laceration of left | | 2017 | Visit | CARE [address] | Need updated | leg, initial | | | | [place] | address | encounter (Primary | | | | [address] | | Dx); Furuncle | | | | [phone] | | | +--------+---------+ + + + [...] After cleaning, apply a thin layer of cqwh-szr-grwcxuv antibiotic ointmentif advised. Reapply a fresh bandage. [...] by your healthcare provider Date Last Reviewed: 11/03/[id number] [employer]. [address] [place] [address], [place] [address]. All righ ts reserved. This information is [...] on her legs. She wa s in [facility] recently and cut herself shaving the back of the L leg. She then developed some sores on the front of the L leg. She picked them and now they are getting really red. She is worried she may have MRSA. Neither she nor BF have had hx of MRSA. 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 She would also like a test. Nexplanon [...] 2. Furuncle POCT Test, Urine, QUAL recent [facility] so concern for MRSA Clindamycin 300 mg [...] the scabs. This note was dictated using [employer] voice recognition software. Occasional wrong- word or [...] | 1.010, 1.015, | | | | [place], | | 1.020, 1.025 | | | [...]
--- OUTSIDE RECORDS SUMMARY | ~2019-10-30 | XMS | Encounter Summary ---
Demographics + + + | Address | [address] | | | [place] [address] | + + + | Home Phone | | + + + | Preferred Language | Unknown | + + + | Marital Status | Single | + + + | Zoroastrian Affiliation | 1013 | + + + [...] | | | | | [place] [address] | | + + + + + | Ab Julio C | ECON | Unknown | | + + + + + Care Team Providers + +------+ + | Care Barrel Builder Name | Role | Phone | + +------+ + | Pj Abdi MD | PCP | | + +------+ + Reason for Visit +---------+ + | Reason | Comments | +---------+ + | Teasel Setter | med refill | +---------+ + Encounter Details +--------+ + + + + | Date | Type | Department | Care Team | Description | +--------+ + + + + | 12/19/ | Telephone | [facility] | MarcosLissa FNP | Teasel Setter (med refill) | | 2019 | | [facility] [place] | [address] | | | | | [address] | [place] | | | | | [place] | [address] | | | | | [address] | | | | | | [phone] | | | +--------+ + + + [...]
--- OUTSIDE RECORDS SUMMARY | ~2019-10-30 | XMS | Encounter Summary ---
Demographics + + + | Address | [address] | | | [place] [address] | + + + | Home Phone [...] | | | | | [place] [address] | | + + + + + | Ab Romykia | ECON | Unknown | | + + + + + Care Team Providers + +------+ + | Care Display Designer Outside Name | Role | Phone | + [...] | +--------+ + + + + | 08/06/ | [facility] | Blily Munoz, | Back pain, | | 2016 | | [facility] | MD [address] | unspecified back | | | | CENTER [address] | [place] | location, | | | | [place] | [address] | unspecified back | | | | [address] | | pain laterality, | | | | [phone] | | unspecified | | | | [...] + + + | Blood Pressure | 142/88 | 08/06/2016 6:59 PM | | | | | PDT | | + + + + + | Pulse | 97 | 08/06/2016 7:40 PM | | | | | PDT | | + + + + + | Temperature | 37.2 C (99 F) | 08/06/2016 6:59 PM | | | | | PDT | | + + + + + | Respiratory Rate | 16 | 08/06/2016 6:59 PM | | | | | PDT | | + + + + + | Oxygen Saturation | 97% | 08/06/2016 7:40 PM | | | | | PDT | | + + + + + | Inhaled Oxygen | - | - | | | Concentration | | | | + + + + + | Weight | 58.5 kg (129 lb) | 08/06/2016 6:59 PM | | | | | PDT | | + + + + + | Height | 162.6 cm (5' 4") | 08/06/2016 6:59 PM | | | | | PDT | | + + + + + | Body Mass Index | 22.14 | 08/06/2016 6:59 PM | | | | | PDT | | + + + + + documented in this encounter Discharge Instructions AttachmentsThe following attachments cannot be sent through Care Everywhere.BACK AND NECK GENERAL LILIAM ([place])documented in this encounter Medications at Time of [...] INFORMATION | CELSO | Routin | | 08/06/2016 6:52 PM | | EXCHANGE | | e | | PDT | + +------+--------+ + + | ED INFORMATION | CELSO | Routin | | 08/06/2016 6:52 PM | | EXCHANGE | | e | | PDT | + +------+--------+ + + documented as of this encounter Procedures + +--------+ + + + | Procedure Name | Priori | Date/Time | Associated Diagnosis | Comments | | | ty | | | | + +--------+ + + + | ED INFORMATION | Routin | 08/06/2016 | | | | EXCHANGE | e | 6:52 PM | | | | | | PDT | | | + +--------+ + + + | ED INFORMATION | Routin | 08/06/2016 | | | | EXCHANGE | e | 6:52 PM | | | | | | [...] + | HYDROmorphone (DILAUDID) | Given | 08/07/19 | 1 mg | | Leg-Righ | | injection 1 mg 1 mg, | | 17 7:33 | | | t Upper | | Intramuscular, ONCE, 08/06/16 | | PM PDT | | | | | at 1935, For 1 dose | | | | | | + +--------+ +------+------+ + +---+---+ | | | +---+---+ + + + +-------+---+---+ | traMADol (ULTRAM) tablet (ER | Dispense | 08/07/19 | 50 mg | | | | Prepack) 50 mg 50 mg, Oral, | to Home | 17 7:51 | | | | | ONCE, 08/06/16 at 1925, For 1 | | PM PDT | | | | | dose, 2 tablet(s) every 8 hours | | | | | | | prn pain Dispense for home use., | | | | | | | | | | | | | + + + +-------+---+---+ +---+---+ | | | +---+---+ documented in this encounter
--- OUTSIDE RECORDS SUMMARY | ~2019-10-30 | XMS | Encounter Summary ---
Demographics + + + | Address | [address] | | | [place] [address] | + + + | Home Phone | | + + + | Preferred Language | Unknown | + + + | Marital Status | Single | + + + | Jewish Affiliation | 1013 | + + + [...] | | | | | [place] [address] | | + + + + + | Ab Julio C | ECON | Unknown | | + + + + + Care Team Providers + +------+ + | Care Emergency Department Aide Name | Role | Phone | + [...] + + | 05/25/ | Emergency | [facility] | Suhail Constantino | Incontinence of | | 2017 | | [facility] | MD [address] | feces, unspecified | | | | CENTER [address] | [address] [place] | fecal incontinence | | | | [place], [place] | [place] [address] | type (Primary Dx); | | | | [address] | [phone] | Chronic midline low | | | | [phone] | | back pain, with | | | | | Rajiv Vieyra, | sciatica presence | | | | | [address] | unspecified | | | | | [facility] [place] | | | | | | [place] [address] | | | | | | [phone] | | | | | | | [...] Care Everywhere.Back Pain (Acut e or Chronic) (Taiwanese)documented in this encounter Medications at Time of [...]
--- OUTSIDE RECORDS SUMMARY | ~2019-10-30 | XMS | Encounter Summary ---
Demographics + + + | Address | [address] | | | [place] [address] | + + + | Home Phone | | + + + | Preferred Language | Unknown | + + + | Marital Status | Single | + + + | Hoahaoism Affiliation | 1013 | + + + | Race | Unknown | + + + | Ethnic Group | Unknown | + + + Author + + + | Author | [facility] | | | and Johnana | + + + | Organization | [facility] | | | [...] | | | | | [place] [address] | | + + + + + | Ab Romykia | ECON | Unknown | | + + + + + Care Team Providers + +------+ + | Care Metallic Yarn Slitting Machine Operator Name | Role | Phone | + +------+ + PCP | Unavailable | + +------+ + Encounter Details +--------+ + + + + | Date | Type | Department | Care Team | Description | +--------+ + + + + | 12/04/ | Hospital | [facility] | Suhail Constantino | | | 2011 | Encounter | [facility] | MD [address] | | | | | [place] [address] | [address] [place] | | | | | [place], [place] | [place] [address] | | | | | [address] | [phone] | | | | | [phone] | | | +--------+ + + + [...]
--- OUTSIDE RECORDS SUMMARY | ~2019-10-30 | XMS | Encounter Summary ---
Demographics + + + | Address | [address] | | | [place] [address] | + + + | Home Phone [...] | | | | | [place] [address] | | + + + + + | Ab Bunch | ECON | Unknown | | + + + + + Care Team Providers + +------+ + | Care Shipping Receiving Clerk Name | Role | Phone | + +------+ + | Mike Fernández MD | PCP | | + +------+ + Encounter Details +--------+ + + + + | Date | Type | Department | Care Team | Description | +--------+ + + + + | 03/02/ | Hospital | [facility] | Eric Lozano, | | | 2012 | Encounter | [facility] EM[facility] | MD [address] | | | | | CENTER [address] | [place], [place] | | | | | [place], [place] | [address] | | | | | [address] | | | | | | [phone] | | | +--------+ + + + [...]
--- OUTSIDE RECORDS SUMMARY | ~2019-10-30 | XMS | Encounter Summary ---
Demographics + + + | Address | [address] | | | [place] [address] | + + + | Home Phone | | + + + | Preferred Language | Unknown | + + + | Marital Status | Single | + + + | Holiness Affiliation | 1013 | + + + | Race | Unknown | + + + | Ethnic Group | Unknown | + + + Author + + + | Author | [facility] | | | and Johnana | + + + | Organization | [facility] | | | and [...] | | | | | [place] [address] | | + + + + + | Ab Romykia | ECON | Unknown | | + + + + + Care Team Providers + +------+ + | Care Senior Procurement Specialist Name | Role | Phone | + +------+ + PCP | Unavailable | + +------+ + Encounter Details +--------+ + + + + | Date | Type | Department | Care Team | Description | +--------+ + + + + | 05/20/ | Hospital [facility] | | | | 2009 | Encounter | [facility] | | | | | | [address] | | | | | | [place] | | | | | | [address] | | | | | | [phone] | | | +--------+ + + + [...]
--- OUTSIDE RECORDS SUMMARY | ~2019-10-30 | XMS | Encounter Summary ---
Demographics + + + | Address | [address] | | | [place] [address] | + + + | Home Phone [...] + + + | Author | [facility] | | | and Johnana | + + + | Organization | [facility] | | [...] | | | | | [place] [address] | | + + + + + | Absweta Stantonkia | ECON | Unknown | | + + + + + Care Team Providers + +------+ + | Care Cost Engineer Name | Role | Phone | + +------+ + | No, Unknownpcp | PCP | | + +------+ + Reason for Visit +--------+ + | Reason | Comments | +--------+ + | Other | FORM FEE | +--------+ + Encounter Details +--------+ + + + + | Date | Type | Department | Care Team | Description | +--------+ + + + + | 07/05/ | Clinical | [facility] [place] | Jill Zhang | Strain of left | | 2020 | Support | [facility] | [address] | shoulder, subsequent | | | | [address] | encounter; Work | | | | [address] [place] | [place] | related injury | | | | [place] | [address] | | | | | [address] | | | | | | [phone] | | | +--------+ + + + [...] + documented as of this encounter Progress Keyanna Cosme - 07/05/2019 8:00 AM PSTFORM FEE. PROVIDER-SCANNED DOCUMENT CAN BE FO UND IN SCANNING docume nted in this encounter Plan of Treatment Not on filedocumented as of this encounter Visit Diagnoses + + | Diagnosis | + + | Strain of left shoulder, subsequent encounter | + + | Work related injury Injury, other and unspecified, unspecified site | + + documented in this encounter"
--- OUTSIDE RECORDS SUMMARY | ~2019-10-30 | XMS | Encounter Summary ---
Demographics + + + | Address | [address] | | | [place] [address] | + + + | Home Phone [...] | | | | | [place] [address] | | + + + + + | Ab Julio C | ECON | Unknown | | + + + + + Care Team Providers + +------+ + | Care Antique Clocks Repairer Name | Role | Phone | + [...] | | | | CENTER [address] | [place] | encounter (Primary | | | | [place] | [address] | Dx) | | | | [address] | | | | | | [phone] | | | +--------+ + + + [...] be sent through Care Everywhere.Back Sprain/Str ain (Romanian)documented in this encounter Medications at Time of [...] K?MRN: | | | | | | [id number] | | | [id number] | | | riteri | | | [...] | | | of | | | assistant 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 | [place] | [phone] | | [facility] | | [address] | | | - LABORATORY | | [...] - [address] | [facility] | | | [place], | | | [facility] | | [...] ST. | [address] | [place], [place] | [phone] | | [facility] | | [address] | | | - LABORATORY | | [...]
--- OUTSIDE RECORDS SUMMARY | ~2019-10-30 | XMS | Encounter Summary ---
Demographics + + + | Address | [address] | | | [place] [address] | + + + | Home Phone [...] | | | | | [place] [address] | | + + + + + | Ab Romykia | ECON | Unknown | | + + + + + Care Team Providers + +------+ + | Care Mechanical Handyman Name | Role | Phone | + [...] Description | +--------+--------+ + + + | 11/14/ | Refill | [facility] | Sophie Carrillo, | Medication Refill | | 2018 | | MEDICINE [address] | PharmD [address] | | | | | [facility] | [facility], | | | | | [place] [address] | [place] [address] | | | | | [phone] | [phone] | | | | | | | | +--------+--------+ + + + [...]
--- OUTSIDE RECORDS SUMMARY | ~2019-10-30 | XMS | Encounter Summary ---
Demographics + + + | Address | [address] | | | [place] [address] | + + + | Home Phone | | + + + | Preferred Language | Unknown | + + + | Marital Status | Single | + + + | Yarsani Affiliation | 1013 | + + + [...] | | | | | [place] [address] | | + + + + + | Ab Romykia | ECON | Unknown | | + + + + + Care Team Providers + +------+ + | Care Tax Services Manager Name | Role | Phone | [...] + | 01/28/ | Telephone | [facility] | Allyn Spears RN | Follow-up (OM Urgent | | 2015 | | CARE [address] | | Care Visit ) | | | | [place] | | | | | | [address] | | | | | | [phone] | | | +--------+ + + + [...]
--- OUTSIDE RECORDS SUMMARY | ~2019-10-30 | XMS | Encounter Summary ---
Demographics + + + | Address | [address] | | | [place] [address] | + + + | Home Phone | | + + + | Preferred Language | Unknown | + + + | Marital Status | Single | + + + | Zoroastrianism Affiliation | 1013 | + + + [...] | | | | | [place] [address] | | + + + + + | Ab Romykia | ECON | Unknown | | + + + + + Care Team Providers + +------+ + | Care Skilled Helper Name | Role | Phone | [...] + | 12/21/ | Refill | [facility] | Pj Abdi, | Medication Refill | | 2018 | | MEDICINE [place] | [address] | | | | | [address] | [place] | | | | | [place] | [address] | | | | | [address] | | | | | | [phone] | | | +--------+--------+ + + + [...]
--- OUTSIDE RECORDS SUMMARY | ~2019-10-30 | XMS | Encounter Summary ---
Demographics + + + | Address | [address] | | | [place] [address] | + + + | Home Phone [...] | | | | | [place] [address] | | + + + + + | Ab Romykia | ECON | Unknown | | + + + + + Care Team Providers + +------+ + | Care Solar Lab Technician Name | Role | Phone | + +------+ + PCP | Unavailable | + +------+ + Encounter Details +--------+ + + + + | Date | Type | Department | Care Team | Description | +--------+ + + + + | 07/22/ | Hospital | [facility] | | | | 2008 | Encounter | [facility] | | [facility] | | [facility] [address] | | | | | | [place], [place] | | | | | | [address] | | | | | | [phone] | | | +--------+ + + + [...]
--- OUTSIDE RECORDS SUMMARY | ~2019-10-30 | XMS | Encounter Summary ---
Demographics + + + | Address | [address] | | | [place] [address] | + + + | Home Phone [...] + + | Author | [facility] | | | and [place] | + + + | Organization | [facility] | | | and [place] | + + + | Address | Unknown | + + + | Phone | Unavailable | + + + Support + + + + + | Name | Relationship | Address | Phone | + + + + + | Isma Hogan | ECON | [address] | | | | | [place] [address] | | + + + + + | Ab Romykia | ECON | Unknown | | + + + + + Care Team Providers + +------+ + | Care Order Packer Name | Role | Phone | + [...] Description | +--------+--------+ + + + | 12/19/ | Refill | [facility] | Pj Abdi, | Medication Refill | | 2018 | | MEDICINE [place] | [address] | | | | | [address] | [place] | | | | | [place] | [address] | | | | | [address] | | | | | | [phone] | | | +--------+--------+ + + + [...]
--- OUTSIDE RECORDS SUMMARY | ~2019-10-30 | XMS | Encounter Summary ---
Demographics + + + | Address | [address] | | | [place] [address] | + + + | Home Phone | | + + + | Preferred Language | Unknown | + + + | Marital Status | Single | + + + | Confucianism Affiliation | 1013 | + + + | Race | Unknown | + + + | Ethnic Group | Unknown | + + + Author + + + | Author | [facility] | | | and [place] | + + + | Organization | [facility] | | | [...] | | | | | [place] [address] | | + + + + + | Ab Bunch | ECON | Unknown | | + + + + + Care Team Providers + +------+ + | Care Shoder Filler Name | Role | Phone | + +------+ + | No Unknownpcp | PCP | | + +------+ + Reason for Visit + + + | Reason | Comments | + + + | Follow-up | Room 4: follow up left shoulder -no x rays - told pt has | | | tendonitis - had cortisone injections in UC, taking tylenol, | | | ibuprofen and icing -not helping -trying to establish with new | | | PCP 06/19/19 -has appt with occupation med 06/20/19 | + + + Encounter Details +--------+---------+ + + + | Date | Type | Department | Care Team | Description | +--------+---------+ + + + | 06/08/ | Office | [facility] | Stas Enamorado | Internal derangement | | 2020 | Visit | CARE [address] | [address] | of left shoulder | | | | [place] | [address] | (Primary Dx) | | | | [address] | [place] [address] | | | | | [phone] | [phone] | | | | | | | | +--------+---------+ + + + [...] + + + | Blood Pressure | 141/86 | 06/08/2019 4:16 PM | | | | | PST | | + + + + + | Pulse | 87 | 06/08/2019 4:16 PM | | | | | PST | | + + + + + | Temperature | 37.4 C (99.3 F) | 06/08/2019 4:16 PM | | | | | PST | | + + + + + | Respiratory Rate | 18 | 06/08/2019 4:16 PM | | | | | PST | | + + + + + | Oxygen Saturation | 100% | 06/08/2019 4:16 PM | | | | | PST [...] in this encounter Patient Instructions Patient Instructions Stas Enamorado ARNP - 06/08/2019 4:15 PM PST The Shoulder Joint The shoulder is made up of bones, muscles, ligaments, and tendons. They work together so yo u can reach, swing, and lift in comfort. Learning about the parts of the shoulder joint will help you to understand your shoulder problem. The parts of the joint The shoulder joint is where the humerus (upper arm bone) meets the scapula (shoulder blade) : Muscles and ligaments help make up the joint. They attach to the shoulder blade and uppe r arm bone. At the top of the shoulder blade are two bony knobs called the acromion and coracoid pro cess. The subacromial space is between the top of the humerus and the acromion. This space is filled with tendons,muscles, and the subacromial bursa. The bursa is a sac of fluid that cushions shoulder parts as they move. The supraspinatus muscle and tendon are located in the subacromial space. They help form th e rotator cuff and are commonly injured in a rotator cuff tear. Date Last Reviewed: 09/20/201719991522-4501 [employer]. [address] [place] [address], [place] [address]. All righ ts reserved. This information is not intended as a substitute for professional medical care. Always follow your healthcare professional's instructions. Pendulum (Flexibility) 1. Lean over next to a table, with your left arm supporting your weight on the table. 2. Relax your right arm and let it hang straight down. 3. Slowly begin to swing your right arm in a small lower [place]. Graduallymake the lower [place] bigge r if you can.Change direction [id number] of motion. 4. Next, swing your right arm backward and forward. Then move it side to side. Change direc tion [id number] of motion. 5. Repeat these movements for about 5 minutes. 6. Do this [id number] a day, or as often as instructed. Date Last Reviewed: 07/31/201519995228-[address] [place] [address]. All righ ts reserved. This information is not intended as a substitute for professional medical care. Always follow your healthcare professional's instructions. documented in this encounter Progress Notes Shayna Gibbons RN - 06/08/2019 4:15 PM PST Verified name and date of of patient before provider orders were carried out. Administrations This Visit ketorolac (TORADOL) injection 30 mg Admin Date 06/08/2019 16:40 Action Given Dose 30 mg Route Intramuscular Administered By Shayna Gibbons RN [facility] 2001 [id number] Lot#: [id number] Comments: Exp: 10/2020 Patient instructed to wait 15 minutes after injection for monitoring. Caryl Nassar Patient waited 15 minutes after injection without adverse signs/symptoms. Sahyna barbosa RN Daniel Bassett ARNP - 06/08/2019 4:15 PM PSTFormatting of this note might be different from the o riginal. Subjective: Donna is a 23 y.o. female who comes in complaining of Follow-up (Room 4: WC follow up lef t shoulder -no x rays - told pt has tendonitis - had cortisone injections in UC, taking tyle nol, ibuprofen and icing -not helping -trying to establish with new PCP 1/28/20 -has appt wi occupation med 06/20/19 ) . On the job injury, [employer] HPI Shoulder Pain The left shoulder is affected. 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 The pain is at a severity of 8/10. Perti nent negatives include no tingling. Associated symptoms comments: [facility], was treated with steroid injection and advised to use OTC Tylenol an d ibuprofen for pain. She returns today stating that the pain has continued to get worse. Patient reports she has follow-up appointment with occupational medicine on 06/20/2019. Patient localizes pain to the musculature of the left shoulder and into the back along the left trapezius border. Reports she has not been at work as they are not able to provide modified work duty for her at this time. Patient's medications, allergies, past medical, surgical, social and family histories were reviewed and updated as appropriate. Review of Systems Constitutional: Negative for chills and fever. Musculoskeletal: Positive for joint pain. Negative for falls. Skin: No breaks in the skin, no signs of external trauma Neurological: Negative for tingling, tremors and sensory change. All other systems reviewed and are negative. Objective: BP 141/86 | Pulse 87 | Temp 37.4 C (99.3 F) (Temporal) | Resp 18 | LMP 05/17/2019 | SpO2 100% Physical Exam Vitals signs and nursing note reviewed. Constitutional: General: She is not in acute distress. Appearance: Normal appearance. She is not ill-appearing. Neck: Musculoskeletal: Normal range of motion. Comments: Patient has full active range of motion of the neck without pain or limitation s Cardiovascular: Rate and Rhythm: Normal rate. Pulmonary: Effort: Pulmonary effort is normal. No respiratory distress. Breath sounds: No stridor. No wheezing, rhonchi or rales. Musculoskeletal: Comments: Limited active range of motion in the left shoulder. Patient unable to get th e shoulder/arm into proper positioning for evaluation of internal or external rotational lag . There is slight point tenderness along the lateral border of the left scapula. No point tenderness along the clavicle or in the AC joint. Full active range of motion in the left e lbow without pain. 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 No signs of external trauma noted in the shoulder, no bruising, swelling, lacerations. Skin: General: Skin is warm and dry. Capillary Refill: Capillary refill takes less than 2 seconds. Neurological: General: No focal deficit present. Mental Status: She is alert and oriented to person, place, and time. No results found for this or any previous visit (from the past 24 hour(s)). Assessment and Plans: 1. Internal derangement of left shoulder ketorolac (TORADOL) injection 30 mg DISCONTINUED: ketorolac (TORADOL) injection 30 mg Discussed with patient the natural course/follow-up with occupational medicine. Advised th at she should continue with Tylenol/ibuprofen for pain. She states that this is not adequat e for her pain, I advised I could order Toradol injectable here in clinic and she agrees. Home exercise instructions provided on AVS with written and picture descriptions. Keep appointment with occupational medicine that is already scheduled. Will attempt to cont act occupational medicine to see if the appointment can be made sooner Return if symptoms worsen or fail to improve. Electronically signed by ANGEL Padron at DATE/TIME: 06/08/2019 4:44 PM This note was dictated using [employer] voice recognition software. Occasional wrong- word or s ound-alike substitutions may have occurred due to the inherent limitations of voice recognit ion software. Please read the chart carefully and recognize, using context, where these subs titutions have occurred. Electronically signed by ANGEL Mock at 0 4:45 PM PSTdocumented in this encounter Plan of Treatment Not on filedocumented as of this encounter Visit Diagnoses + + | Diagnosis | + + | Internal derangement of left shoulder - Primary | + + documented in this encounter Administered Medications + +--------+ +-------+------+ + | Medication Order | MAR | Action | Dose | Rate | Site | | | Action | Date | | | | + +--------+ +-------+------+ + | ketorolac (TORADOL) injection | Given | 06/08/19 | 30 mg | | Ventrogl | | 30 mg 30 mg, Intramuscular, | | 20 4:40 | | | uteal-Le | | ONCE, 06/08/19 at 1700, For 1 | | PM PST | | | ft | | dose | | | | | | + +--------+ +-------+------+ + +---+---+ | | | +---+---+ documented in this encounter"
--- OUTSIDE RECORDS SUMMARY | ~2019-10-30 | XMS | Encounter Summary ---
Demographics + + + | Address | [address] | | | [place] [address] | + + + | Home Phone | | + + + | Preferred Language | Unknown | + + + | Marital Status | Single | + + + | Taoist Affiliation | 1013 | + + + | Race | Unknown | + + + | Ethnic Group | Unknown | + + + Author + + + | Author | [facility] | | | and Johnana | + + + | Organization | [facility] | | [...] | | | | | [place] [address] | | + + + + + | Ab Bunch | ECON | Unknown | | + + + + + Care Team Providers + +------+ + | Care Business Management Analyst Name | Role | Phone | + +------+ + | Charles Allen MD | PCP | | + +------+ + Reason for Visit + + + | Reason | Comments | + + + | Abdominal Cramping | RM 6- abd pain, cramping, passing blood clots X 3 days, blood | | | clots worsened X 1 day, concerned of miscarraige, has not taken | | | preg test but was trying to get | + + + Encounter Details +--------+---------+ + + + | Date | Type | Department | Care Team | Description | +--------+---------+ + + + | 07/12/ | Office | [facility] | Radha, | Abdominal pain, | | 2020 | Visit | [facility] [address] | Olu Yee MD | unspecified | | | | [place] | [address] | abdominal location | | | | [address] | [place] | (Primary Dx); | | | | [phone] | [address] | Abnormal vaginal | | | | | | bleeding | +--------+---------+ + + + Social History [...] in this encounter Patient Instructions Patient Instructions Olu Garcia MD - 07/12/2019 3:20 PM PST Dysfunctional Uterine Bleeding Dysfunctional uterine bleeding, also called abnormal uterine bleeding, is a condition in wh ich bleeding is abnormaland occurs at unexpected times of the month. This happens because of changes in the hormones that help control a woman s menstrual cycle each month. The bleeding may be heavier or barker peeler than normal. If you have heavy bleeding often, this can lead to a problem called anemia.With anemia, your red blood cell count is too low. Red blood cells help carry oxygen throughout your body.Severe anemia may cause you to look pa le and feel very weak or tired. You might also become short of breath easily. To treat dysfunctional uterine bleeding, medicines are often tried first. If these don t help, or if you have additional symptoms or have reached menopause, further testing and william tments may be needed. Discuss all of your options with your provider. Home care Medicines If you re prescribed medicines, be sure to take them as directed. Some of the more common medicines you may be prescribed include: Hormone therapy (Options include most methods of hormonal control such as pills, s hots, or a hormone-releasing IUD) Nonsteroidal anti-inflammatory drugs (NSAIDs), such as ibuprofen Iron supplements, if you have anemia General care Get plenty of rest if you tire easily. Avoid heavy exertion. To help relieve pain or cramping that may occur with bleeding, try using a heating pad o n the lower belly or back. A warm bath may also help. Follow-up care Follow up with your healthcare provider, or as directed. When to seek medical advice Call your healthcare provider right away if: Bleeding becomes heavy (soaking 1 pad or tampon every hour for 3 hours) Increased abdominal pain Irregular bleeding worsens or does not get better even with treatment Fever of 100.4F (38C) or higher, or as directed by your provider Signs of anemia, such as pale skin, extreme fatigue or weakness, or shortness of breath Dizziness or fainting Date Last Reviewed: 03/23/201719993115-5986 [employer]. [address] [place] [address]. All righ ts reserved. This information is not intended as a substitute for professional medical care. Always follow your healthcare professional's instructions. documented in this encounter Progress Notes Ranjana Kim RN - 07/12/2019 3:20 PM PSTVerified name and date of of leonard gramajo before provider orders were carried out. Venipuncture X1 right arm with 21 gauge butterfly needle. Patient tolerated well. Olu Nino MD - 07/12/2019 3:20 PM PST Subjective: Chief Complaint: Abdominal Cramping (RM 6- abd pain, cramping, passing blood clots X 3 days , blood clots worsened X 1 day, concerned of miscarraige, has not taken preg test but was tr kevin to get ) Donna is a 23 y.o. female who comes in complaining of abnormal vaginal bleeding. HPI this 23-year-old woman presents with heavy vaginal bleeding. Her last normal menstrual period was the first week of May. She had been attempting with her partner a nd therefore not using contraception. She then did not have a period as expected in early eb and thought she might be . She had some nausea and breast tenderness. Then 3 days ago she had onset of heavy vaginal bleeding flowing about twice as much as normal ch anging her tampons every 1-2 hours instead of every 3-4 there were clots but no tissue that she saw. She has had lots of cramps and menstrual and also in the lower back. She has not worked for 2 days due to the pain and bleeding. She is not having any dysuria urgency frequ ency previous vaginal discharge pelvic pain or any fevers. At this point she is not sure if she is miscarrying or if it is nasty. Patient's medications, allergies, past medical, surgical, social and family histories were reviewed and updated as appropriate. ROS See above Objective: BP 128/79 | Pulse 98 | Temp (!) 38.1 C (100.5 F) (Temporal) | Resp 18 | Ht 1.626 m (5' 4") | Wt 51.9 kg (114 lb 6.7 oz) | LMP 05/24/2019 | SpO2 100% | BMI 19.64 kg/m Physical Exam Patient is is is in mild distress due to pelvic cramping. Vital signs as above. Patient d oes feel a little warm to the touch. Abdomen is flat and soft and nontender. There is no hepatosplenomegaly mass guarding rebou nd and the bowel tones are normally active. Chaperoned pelvic examination reveals no inguin al adenopathy. External and BUS is normal. Vagina shows scant blood at the cul-de-sac and no discharge or lesions. Cervix is closed does not admit a ring forcep. There is no abnorm al discharge or lesions. There is minimal tenderness to motion of the cervix. Bimanual adriana ws a very small compact anteflexed uterus that is mobile and nontender. Right adnexa postop erative and nothing is palpable. Left adnexa shows a palpable ovary which is normal size an d texture and there is no significant tenderness in the adnexa. Recent Results (from the past 24 hour(s)) POCT Urinalysis Result Value Ref Range Color, UA, POC Yellow Yellow, Light Yellow Clarity, UA, POC Clear Glucose, UA, POC Negative Negative Bilirubin, UA, POC Negative Negative Ketones, UA, POC Negative Negative, 100 mg/dL Specific [place], UA, POC 1.005 1.001 - 1.030 Blood, UA, POC Negative Negative pH, UA, POC 5.5 5.0, 6.0, 7.0, 8.0, 5.5, 6.5, 7.5 Protein, UA, POC Negative Negative Urobilinogen, UA, POC 0.2 0.2, Negative, Normal, < 0.2 mg/dL, 1 mg/dL, < 0.2 E.U./dl, 1.0 E.U./dL, 0.2 mg/dL Nitrite, UA, POC Negative Negative Leukocyte Esterase, UA, POC Negative Negative Remark POCT Test, Urine, QUAL Result Value Ref Range Test, Urine, POC Negative Negative Internal QC Acceptable Acceptable Specific [place], POC Lot Number [id number] Expiration Date 2020-07-24 CBC with Differential Result Value Ref Range WBC 7.2 4.0 - 11.0 K/uL RBC 3.79 3.70 - 5.20 M/uL Hemoglobin 11.9 11.5 - 16.0 g/dL Hematocrit 36.2 34.0 - 47.0 % MCV 95.5 83.0 - 101.0 fL MCH 31.4 28.0 - 35.0 pg MCHC 32.9 32.0 - 36.0 g/dL RDW-CV 12.5 <15.0 % RDW-SD 44.7 35.1 - 46.3 fL Platelet Count 309 140 - 440 K/uL MPV 9.1 6.5 - 12.4 fL % Neutrophils 64.7 45.0 - 82.0 % % Lymphocytes 28.1 20.0 - 45.0 % % Monocytes 3.5 (L) 4.0 - 12.0 % % Eosinophils 3.2 0.0 - 5.0 % % Basophils 0.4 0.0 - 1.0 % % Immature Granulocytes 0.1 0.0 - 0.4 % Absolute Neutrophils 4.68 1.80 - 8.50 K/uL Absolute Lymphocytes 2.03 0.60 - 3.20 K/uL Absolute Monocytes 0.25 0.00 - 1.00 K/uL Absolute Eosinophils 0.23 0.00 - 0.40 K/uL Absolute Basophils 0.03 0.00 - 0.10 K/uL Absolute Immature Granulocytes 0.01 0.00 - 0.03 K/uL HCG, Serum, Quant Result Value Ref Range hCG Quant, Serum <1 0 - 6 mIU/mL Assessment and Plans: 1. Abdominal pain, unspecified abdominal location 2. Abnormal vaginal bleeding At this point there is no signs that there was a . This will be a dysfunctional u terine bleeding episode. Patient is not anemic there is no signs of infection or surgical d isease such as ovarian cyst. Patient is given some time off of work and advised to continue expectant management. Her bleeding should settle and stop in the next few days. If it con tinues then that reexamination for potential treatment is warranted. This note was dictated using [employer] voice recognition software. Occasional wrong- word or s ound-alike substitutions may have occurred due to the inherent limitations of voice recognit ion software. Please read the chart carefully and recognize, using context, where these subs titutions have occurred. Electronically signed by Olu Garcia MD at 0 8:14 PM PSTdocumented in this encounter Plan of Treatment Not on filedocumented as of this encounter Procedures + +--------+ + + + | Procedure Name | Priori | Date/Time | Associated Diagnosis | Comments | | | ty | | | | + +--------+ + + + | CBC WITH | STAT | 07/12/2019 | Abnormal vaginal | Results for this | | DIFFERENTIAL | | 5:45 PM | bleeding | procedure are in the | | | | PST | | results section. | + +--------+ + + + | HCG, SERUM, QUANT | STAT | 07/12/2019 | Abnormal vaginal | Results for this | | | | 5:45 PM | bleeding | procedure are in the | | | | PST | | results section. | + +--------+ + + + | POCT TEST, | Routin | 07/12/2019 | Abdominal pain, | Results for this | | URINE, QUAL | e | 4:09 PM | unspecified | procedure are in the | | | | PST | abdominal location | results section. | + +--------+ + + + | POCT URINALYSIS, | Routin | 07/12/2019 | Abdominal pain, | Results for this | | AUTO WITH CONF | e | 4:08 PM | unspecified | procedure are in the | | | | PST | abdominal location | results section. | + +--------+ + + + documented in this encounter Results HCG, Serum, Quant (07/12/2019 5:45 PM PST) + + + + + + | Component | Value | Ref Range | Performed | Pathologist | | | | | At | Signature | + + + + + + | hCG Quant, | <1Comment: RE[facility]ENCE | 0 - 6 mIU/mL | [facility] | | | Serum | RANGE: | | [facility] | | | | B-hCG | | [facility] | | | | LEVELGestational Age | | [facility] | | | | Expected hCG | [...] + + + + + | M[facility] | [address] [facility] [address] | [place] | [phone] | | [facility] | | [address] | | | [place] [place] | | | | + + + + + CBC with Differential (07/12/2019 5:45 PM PST) + + + + + + | Component | Value | Ref Range | Performed | Pathologist | | | | | At | Signature | + + + + + + | WBC | 7.2 | 4.0 - 11.0 K/uL | [facility] | | | | | | [facility] | | | | | [facility] | | | | | [facility] | | | | | | [facility] | | + + + + + + | RBC | 3.79 | 3.70 - 5.20 | [facility] | | | | | M/uL | [facility] | | | | | | [facility] | | | | | | [facility] | | | | | | [facility] | | + + + + + + | Hemoglobin | 11.9 | 11.5 - 16.0 | [facility] | | | | | g/dL | [facility] | | | | | | [facility] | | | | | | [facility] | | | | | | [facility] | | + + + + + + | Hematocrit | 36.2 | 34.0 - 47.0 % | [facility] | | | | | | [facility] | | | | | | [facility] | | | | | | [facility] | | | | | | [facility] | | + + + + + + | MCV | 95.5 | 83.0 - 101.0 fL | [facility] | | | | | | [facility] | | | | | | [facility] | | | | | | [facility] | | | | | | [facility] | | + + + + + + | MCH | 31.4 | 28.0 - 35.0 pg | [facility] | | | | | | [facility] | | | | | | [facility] | | | | | | [facility] | | | | | | [facility] | | + + + + + + | MCHC | 32.9 | 32.0 - 36.0 | [facility] | | | | | g/dL | [facility] | | | | | | [facility] | | | | | | [facility] | | | | | | [facility] | | + + + + + + | RDW-CV | 12.5 | <15.0 % | [facility] | | | | | | [facility] | | | | | | [facility] | | | | | | [facility] | | | | | | [facility] | | + + + + + + | RDW-SD | 44.7 | 35.1 - 46.3 fL | [facility] | | | | | | [facility] | | | | | [facility] | | | | | | [facility] | | | | | | [facility] | | + + + + + + | Platelet | 309 | 140 - 440 K/uL | [facility] | | | Count | | | [facility] | | | | | | [facility] | | | | | | [facility] | | | | | | [facility] | | + + + + + + | MPV | 9.1 | 6.5 - 12.4 fL | [facility] | | | | | | [facility] | | | | | | [facility] | | | | | | [facility] | | | | | | [facility] | | + + + + + + | % | 64.7 | 45.0 - 82.0 % | [facility] | | | Neutrophils | | | [facility] | | | | | | [facility] | | | | | | [facility] | | | | | | [facility] | | + + + + + + | % | 28.1 | 20.0 - 45.0 % | [facility] | | | Lymphocytes | | | [facility] | | | | | | [facility] | | | | | | [facility] | | | | | | [facility] | | + + + + + + | % Monocytes | 3.5 (L) | 4.0 - 12.0 % | [facility] | | | | | | [facility] | | | | | | [facility] | | | | | | [facility] | | | | | | [facility] | | + + + + + + | % | 3.2 | 0.0 - 5.0 % | [facility] | | | Eosinophils | | | [facility] | | | | | | [facility] | | | | | | [facility] | | | | | | [facility] | | + + + + + + | % Basophils | 0.4 | 0.0 - 1.0 % | [facility] | | | | | | [facility] | | | | | | [facility] | | | | | | [facility] | | | | | | [facility] | | + + + + + + | % Immature | 0.1Comment: For | 0.0 - 0.4 % | [facility] | | | Granulocyte | patients, use the | | [facility] | | | s | special reference ranges | | MED[facility] | | | | listed below. | | [facility] | | | | | | [facility] | | + + + + + + | Absolute | 4.68 | 1.80 - 8.50 | [facility] | | | Neutrophils | | K/uL | [facility] | | | | | | [facility] | | | | | | [facility] | | | | | | [facility] | | + + + + + + | Absolute | 2.03 | 0.60 - 3.20 | [facility] | | | Lymphocytes | | K/uL | [facility] | | | | | | [facility] | | | | | | [facility] | | | | | | [facility] | | + + + + + + | Absolute | 0.25 | 0.00 - 1.00 | [facility] | | | Monocytes | | K/uL | [facility] | | | | | | [facility] | | | | | | [facility] | | | | | | [facility] | | + + + + + + | Absolute | 0.23 | 0.00 - 0.40 | [facility] | | | Eosinophils | | K/uL | [facility] | | | | | | [facility] | | | | | | [facility] | | | | | | [facility] | | + + + + + + | Absolute | 0.03 | 0.00 - 0.10 | [facility] | | | Basophils | | K/uL | [facility] | | | | | | [facility] | | | | | | [facility] | | | | | | [facility] | | + + + + + + | Absolute | 0.01Comment: For | 0.00 - 0.03 | [facility] | | | Immature | patients, use | K/uL | [facility] | | | Granulocyte | the special reference | | MEDICAL | | | s | ranges listed below. | | [facility] | | | | | | LAB[facility]ATORY | | + + + + + + + + | Specimen | + + | Blood | + + + + + | Narrative | Performed At | + + + | IMMATURE GRANULOCYTES - For patients, use the following | [facility] | | reference ranges: Trim. Absolute (K/uL) Percentage (%) | [facility] | | 1st 0.003-0.091 K/uL 0.0-0.9% 2nd 0.007-0.247 K/uL | [facility] | | 0.1-2.0% 3rd 0.018-0.456 K/uL 0.1-2.0% | LABORATORY | + + + + + + + + | Performing | Address | City/State/Zipcode | Phone Number | | Organization | | | | + + + + + | [facility] | [address] | [place] | [phone] | | [facility] | | [address] | | | [facility] | | | | + + + + + POCT Test, Urine, QUAL (07/12/2019 4:09 PM PST) + + + + + [...] Specific | | | | | | [place], | | | | | | POC | | | | | + + + + + + | Lot Number | [id number] | | | | + + + + + + | Expiration | 2020-07-24 | | | | | Date | | | | | + + + + + + + + | Specimen | + + | Urine | + + POCT Urinalysis (07/12/2019 4:08 PM PST) + + + + + [...] | 1.005 | 1.001 - 1.030 | | | | [place], | | | | | | UA, [...] abdominal location - Primary | + + | Abnormal vaginal bleeding Other specified noninflammatory disorder of vagina | + + documented in this encounter
--- OUTSIDE RECORDS SUMMARY | ~2019-10-30 | XMS | Encounter Summary ---
Demographics + + + | Address | [address] | | | [place] [address] | + + + | Home Phone | | + + + | Preferred Language | Unknown | + + + | Marital Status | Single | + + + | Buddhism Affiliation | 1013 | + + + | Race | Unknown | + + + | Ethnic Group | Unknown | + + + Author + + + | Author | [facility] | | | and Johnana | + + + | Organization | [facility] | | | and [...] | | | | | [place] [address] | | + + + + + | Ab Romykia | ECON | Unknown | | + + + + + Care Team Providers + +------+ + | Care Double End Tenoner Operator Name | Role | Phone | [...] | +--------+ + + + + | 08/03/ | Emergency | [facility] | Eirc Lozano, | Acute exacerbation | | 2017 - | | [facility] | MD [address] | of chronic low back | | | | CENTER [address] | [place], [place] | pain (Primary Dx) | | 08/04/ | | [place], [place] | [address] | | | 2016 | | [address] | | | | | | [phone] | | | +--------+ + + + [...] + + + | Blood Pressure | 112/74 | 08/04/2016 1:43 AM | | | | | PDT | | + + + + + | Pulse | 78 | 08/04/2016 1:43 AM | | | | | PDT | | + + + + + | Temperature | 37.2 C (98.9 F) | 08/03/2016 10:09 PM | | | | | PDT | | + + + + + | Respiratory Rate | 16 | 08/04/2016 1:43 AM | | | | | PDT | | + + + + + | Oxygen Saturation | 100% | 08/04/2016 1:43 AM | | | | | PDT | | + + + + + | Inhaled Oxygen | - | - | | | Concentration | | | | + + + + + | Weight | 54.4 kg (120 lb) | 08/03/2016 10:09 PM | | | | | PDT | | + + + + + | Height | 162.6 cm (5' 4") | 08/03/2016 10:09 PM | | | | | PDT | | + + + + + | Body Mass Index | 20.6 | 08/03/2016 10:09 PM | | | | | PDT | | + + + + + documented in this encounter Discharge Instructions AttachmentsThe following attachments cannot be sent through Care Everywhere.BACK PAIN (ACUT E OR CHRONIC) (CROATIAN)documented in this encounter Medications at Time of [...] INFORMATION | CELSO | Routin | | 08/03/2016 8:24 PM | | EXCHANGE | | e | | PDT | + +------+--------+ + + documented as of this encounter Procedures + +--------+ + + + | Procedure Name | Priori | Date/Time | Associated Diagnosis | Comments | | | ty | | | | + +--------+ + + + | EXTRA GREEN TOP TUBE | Routin | 08/04/2016 | | Results for this | | | e | 1:07 AM | | procedure are in the | | | | PDT | | results section. | + +--------+ + + + | EXTRA GOLD TOP TUBE | Routin | 08/04/2016 | | Results for this | | | e | 1:07 AM | | procedure are in the | | | | PDT | | results section. | + +--------+ + + + | ED INFORMATION | Routin | 08/03/2016 | | | | EXCHANGE | e | 8:24 PM | | | | | | PDT | | | + +--------+ + + + documented in this encounter Results Extra Gold Top Tube (08/04/2016 1:07 AM PDT) + +-------+ + + + | Component | Value | Ref Range | Performed | Pathologist | | | | | At | Signature | + +-------+ + + + | Extra Gold | Done | | [facility] | | | Top Tube | | | [facility] | | [...] [address] | [place] | [phone] | | [facility] | | [address] | | | - LABORATORY | | | | + + + + + Extra Green Top Tube (08/04/2016 1:07 AM PDT) + +-------+ + + + [...] + | [facility] | [address] | [place] | [phone] | | [facility] | | [address] | | | - LABORATORY | | | | + + + + + documented in this encounter Visit Diagnoses + + | Diagnosis | + + | Acute exacerbation of chronic low back pain - Primary | + + documented in this encounter Administered Medications + +--------+ +------+------+ + | Medication Order | MAR | Action | Dose | Rate | Site | | | Action | Date | | | | + +--------+ +------+------+ + | HYDROmorphone (DILAUDID) 1 | Given | 08/05/19 | 1 mg | | Deltoid- | | mg/mL injection 1 mg 1 mg, | | 17 12:55 | | | Right | | Intramuscular, ONCE, 08/04/16 | | AM PDT | | | | | at 0025, For 1 dose | | | | | | + +--------+ +------+------+ + +---+---+ | | | +---+---+ + +-------+ +------+---+ + | morphine injection 4 mg 4 mg, | Given | 08/04/19 | 4 mg | | Deltoid- | | Intramuscular, ONCE, 08/03/16 | | 17 11:46 | | | Right | | at 2340, For 1 dose | | PM PDT | | | | + +-------+ +------+---+ + +---+---+ | | | +---+---+ + +-------+ +------+---+---+ | ondansetron (ZOFRAN ODT) | Given | 08/04/19 | 4 mg | | | | disintegrating tablet 4 mg 4 mg, | | 17 11:55 | | | | | Oral, ONCE, Joshua 08/03/16 at 2355, | | PM PDT | | | | | For 1 dose | | | | | | + +-------+ +------+---+---+ +---+---+ | | | +---+---+ documented in this encounter
--- OUTSIDE RECORDS SUMMARY | ~2019-10-30 | XMS | Encounter Summary ---
Demographics + + + | Address | [address] | | | [place] [address] | + + + | Home Phone | | + + + | Preferred Language | Unknown | + + + | Marital Status | Single | + + + | Buddhist Affiliation | 1013 | + + + | Race | Unknown | + + + | Ethnic Group | Unknown | + + + Author + + + | Author | [facility] | | | and Johnana | + + + | Organization | [facility] | | | [...] | | | | | [place] [address] | | + + + + + | Ab Bunch | ECON | Unknown | | + + + + + Care Team Providers + +------+ + | Care Quarry Plant Crusher Operator Name | Role | Phone | + +------+ + | Pj Abdi MD | PCP | | + +------+ + Reason for Visit + + + | Reason | Comments | + + + | Results, Imaging | | + + + | Lab Results | | + + + Encounter Details +--------+ + + + + | Date | Type | Department | Care Team | Description | +--------+ + + + + | 09/28/ | Telephone | [facility] | Pj Abdi, | Results, Imaging; | | 2018 | | [facility] | [address] | Lab Results | | | | [address] | [place] | | | | | [place] | [address] | | | | | [address] | | | | | | [phone] | | | +--------+ + + + [...]
--- OUTSIDE RECORDS SUMMARY | ~2019-10-30 | XMS | Encounter Summary ---
Demographics + + + | Address | [address] | | | [place] [address] | + + + | Home Phone | | + + + | Preferred Language | Unknown | + + + | Marital Status | Single | + + + | Yazdanism Affiliation | 1013 | + + + | Race | Unknown | + + + | Ethnic Group | Unknown | + + + Author + + + | Author | [facility] | | | and Johnana | + + + | Organization | [facility] | | | [...] | | | | | [place] [address] | | + + + + + | Ab Romykia | ECON | Unknown | | + + + + + Care Team Providers + +------+ + | Care Video System Repairer Name | Role | Phone | + +------+ + | No Physician | PCP | Unavailable | + +------+ + Reason for Visit +--------+ + | Reason | Comments | +--------+ + | Other | Form fee | +--------+ + Encounter Details +--------+---------+ + + + | Date | Type | Department | Care Team | Description | +--------+---------+ + + + | 05/05/ | Office | [facility] | Melly Keating | Thoracic myofascial | | 2014 | Visit | [facility] | MD Esther [address] | strain, subsequent | | | | [place] [address] [place] | encounter (Primary | | | | [address] | [place] [address] | Dx); Place of | | | | [place], [place] | [phone] | occurrence, | | | | [address] | | industrial places | | | | [phone] | | and premises | +--------+---------+ + + + Social History [...] documented as of this encounter Progress Keyanna Marshall, Blender Conveyor Operator - 05/05/2015 2:43 PM PSTForm Fee Physician signed document in scanning. doc umented in this encounter Plan of Treatment Not on filedocumented as of this encounter Visit Diagnoses + + | Diagnosis | + + | Thoracic myofascial strain, subsequent encounter - Primary | + + | Place of occurrence, industrial places and premises | + + documented in this encounter"
--- OUTSIDE RECORDS SUMMARY | ~2019-10-30 | XMS | Encounter Summary ---
Demographics + + + | Address | [address] | | | [place] [address] | + + + | Home Phone [...] | | | | | [place] [address] | | + + + + + | Ab Romykia | ECON | Unknown | | + + + + + Care Team Providers + +------+ + | Care Agency Recruiter Name | Role | Phone | + +------+ + | Pj Abdi MD | PCP | | + +------+ + Reason for Visit +--------+ + | Reason | Comments | +--------+ + | Cough | sob RM 5 | +--------+ + Encounter Details +--------+---------+ + + + | Date | Type | Department | Care Team | Description | +--------+---------+ + + + | 06/10/ | Office | [facility] | Rajiv Delgado | Bronchitis with | | 2018 | Visit | CARE [address] | MD Caryl [address] | bronchospasm | | | | [place] | [place] | (Primary Dx); | | | | [address] | [address] | Cigarette smoker | | | | [phone] | | | +--------+---------+ + + + [...] + + + | Blood Pressure | 112/72 | 06/10/2017 5:23 PM | | | | | PST | | + + + + + | Pulse | 95 | 06/10/2017 5:23 PM | | | | | PST | | + + + + + | Temperature | 37.1 C (98.7 F) | 06/10/2017 5:23 PM | | | | | PST | | + + + + + | Respiratory Rate | 25 | 06/10/2017 5:23 PM | | | | | PST | | + + + + + | Oxygen Saturation | 100% | 06/10/2017 5:23 PM | | | | | PST | | + + + + + | Inhaled Oxygen | - | - | | | Concentration | | | | + + + + + | Weight | 59.3 kg (130 lb 11.7 | 06/10/2017 5:23 PM | | | | oz) | PST | | + + + + + | Height | 162.6 cm (5' 4") | 06/10/2017 5:23 PM | | | | | PST | | + + + + + | Body Mass Index | 22.44 | 06/10/2017 5:23 PM | | | | | PST | | + + + + + documented in this encounter Patient Instructions Patient Instructions Rajiv Delgado MD - 06/10/2017 5:30 PM PSTTake Z-John as direct ed until gone. Use albuterol inhaler 2 puffs every 4 hours as needed for cough and wheezing. Drink plenty of fluids and get plenty of rest. Use wzvm-sbg-pbapjvg Tylenol as needed for fever, aches and pains. Lavage nose with saline solution 3-4 times a day to improve nasal congestion. Mix 1 level t easpoon of table salt with 2 cups of lukewarm water for nasal irrigation. If nose is occluded at night, use oxymetazoline nasal spray (Afrin or Dristan Long Acting), 1 spray in each nostril at bedtime only for no more than 5 days. Apply spray after using s yvonne lavage and blowing nose clear. Use cool mist vaporizer in bedroom and living space to reduce cough and airway irritation. Gargle and spit out warm salt water to soothe sore throat. Use throat lozenges of choice an d/or Cepastat throat spray as needed. Take zntl-dar-nsvvnlj Mucinex or equivalent product as needed for thick mucous. Use Robitussin-DM as needed for cough. Do not resume smoking. Follow-up with Dr. Abdi if you need assistance with smoking cessa tion. Return or follow-up with your primary doctor if not better in 1 week, sooner if experiencin g difficulty swallowing liquids, progressive productive cough, associated chest pain, shortn ess of breath, fever or progessive sinus pressure/headache. Bronchitis with Wheezing (Viral or Bacterial: Adult) Bronchitis is an infection of the air passages. It often occurs during a cold and is usuall y caused by a virus. Symptoms include cough with mucus (phlegm) and low-grade fever. This il lness is contagious during the first few days and is spread through the air by coughing and sneezing, or by direct contact (touching the sick person and then touching your own eyes, no se, or mouth). If there is a lot of inflammation, air flow is restricted. The air passages may also go int o spasm, especially if you have asthma. This causes wheezing and difficulty breathing even i n people who do not have asthma. Bronchitis usually lasts 7 to 14 days. The wheezing should improve with treatment during th e first week. An inhaler is often prescribed to relax the air passages and stop wheezing. An tibiotics will be prescribed if your doctor thinks there is also a secondary bacterial infec tion. Home care If symptoms are severe, rest at home for the first 2 to 3 days. When you go back to your usual activities, don't let yourself get too tired. Do not smoke. Also avoid being exposed to secondhand smoke. You may use zwql-ayk-uzomrxu medicine to control fever or pain, unless another medicine was prescribed. Note: If you have chronic liver or kidney disease or have ever had a stomach ulcer or gastrointestinal bleeding, talk with your healthcare provider before using these m edicines. Also talk to your provider if you are taking medicine to prevent blood clots.) Asp irin should never be given to anyone younger than 18 years of age who is ill with a viral in fection or fever. It may cause severe liver or brain damage. Your appetite may be poor, so a light diet is fine. Avoid dehydration by drinking 6 to 8 glasses of fluids per day (such as water, soft drinks, sports drinks, juices, tea, or soup) . Extra fluids will help loosen secretions in the nose and lungs. Rhbo-pwl-ckznfoz cough, cold, and sore-throat medicines will not shorten the length of t he illness, but they may be helpful to reduce symptoms. (Note: Do not use decongestants if y ou have high blood pressure.) If you were given an inhaler, use it exactly as directed. If you need to use it more oft en than prescribed, your condition may be worsening. If this happens, contact your healthcar e provider. If prescribed, finish all antibiotic medicine, even if you are feeling better after only a few days. Follow-up care Follow up with your healthcare provider, or as advised. If you had an X-ray or ECG (electro cardiogram), a specialist will review it. You will be notified of any new findings that may affect your care. Note: If you are age 65 or older, or if you have a chronic lung disease or condition that a ffects your immune system, or you smoke, talk to your healthcare provider about having a pne umococcal vaccinations and a yearly influenza vaccination (flu shot). When to seek medical advice Call your healthcare provider right away if any of these occur: Fever of 100.4F (38C) or higher Coughing up increasing amounts of colored sputum Weakness, drowsiness, headache, facial pain, ear pain, or a stiff neck Call 911, or get immediate medical care Contact emergency services right away if any of these occur. Coughing up blood Worsening weakness, drowsiness, headache, or stiff neck Increased wheezing not helped with medication, shortness of breath, or pain with breathi ng Date Last Reviewed: 02/02/201519991922-6873 [employer]. [address] [place] [address], [place] [address]. All righ ts reserved. This information is not intended as a substitute for professional medical care. Always follow your healthcare professional's instructions. documented in this encounter Progress Notes Rajiv Delgado MD - 06/10/2017 5:30 PM PSTFormatting of this note might be differen t from the original. Chief Complaint: Cough (sob RM 5 ) Donna is a 21 y.o. female who comes in complaining of nasal congestion and cough for 2 we eks. Describes green nasal congestion, no post-nasal drainage, no sinus pain/pressure, mild ear ache, no eye irritation, mild sore throat and productive cough. No measured fever, has s weats and chills. Has body aches. Mild nausea without vomiting. Has mild diarrhea. Has short ness of breath, wheezing and anterior pleuritic chest burning/pain. Current smoker and no hx of asthma. Reports history of bronchitis requiring an inhaler previously. Never hospitali zed for the same. Has not been taking OTC Rx. No known exposure to others with same. LMP started 5 days ago. Patient's medications, allergies, past medical, surgical, social and family histories were reviewed and updated as appropriate. Objective: BP 112/72 | Pulse 95 | Temp 37.1 C (98.7 F) (Temporal) | Resp 25 | Ht 1.626 m (5' 4 ") | Wt 59.3 kg (130 lb 11.7 oz) | SpO2 100% | BMI 22.44 kg/m General Appearance: Alert, cooperative, young female in no distress, appears stated age. N on toxic appearance. Breathing comfortably and speaking in full sentences. Has obvious allegra al congestion and frequent wet cough. Head: Normocephalic, no facial sinus tenderness. No mastoid tenderness. Eyes: PERRL, conjunctiva clear without exudates. Ears: Unremarkable TM's with clear external ear canals and gross normal hearing. Nose: Mildly congested with clear exudates. Throat: Erythematous, non- edematous without exudates. Moist MM. Neck: Supple, symmetrical, no anterior cervical adenopathy. Lungs: Scattered end expiratory wheezes when coughing to auscultation bilaterally without c rackles or rales, respirations unlabored. Cardiac: Regular rhythm, no murmur or guevara. No ankle edema. Abdomen: Soft, non tender. No organomegaly. Skin: Skin color, texture, turgor normal, no rash. Assessment and Plans: 1. Bronchitis with bronchospasm azithromycin (ZITHROMAX) 250 mg tablet albuterol 90 mcg/puff inhaler 2. Cigarette smoker 2 week history of viral URI with cough in a smoker who presents with acute bronchitis with mild bronchospasm. Clinically no indication for systemic corticosteroids. She was given th e following instructions and prescriptions. Plan: Take Z-John as directed until gone. Use albuterol inhaler 2 puffs every 4 hours as needed for cough and wheezing. Drink plenty of fluids and get plenty of rest. Use unpo-csz-pgdjxyc Tylenol as needed for fever, aches and pains. Lavage nose with saline solution 3-4 times a day to improve nasal congestion. Mix 1 level t easpoon of table salt with 2 cups of lukewarm water for nasal irrigation. If nose is occluded at night, use oxymetazoline nasal spray (Afrin or Dristan Long Acting), 1 spray in each nostril at bedtime only for no more than 5 days. Apply spray after using s yvonne lavage and blowing nose clear. Use cool mist vaporizer in bedroom and living space to reduce cough and airway irritation. Gargle and spit out warm salt water to soothe sore throat. Use throat lozenges of choice an d/or Cepastat throat spray as needed. Take szpr-drk-jprnfed Mucinex or equivalent product as needed for thick mucous. Use Robitussin-DM as needed for cough. Do not resume smoking. Follow-up with Dr. Abdi if you need assistance with smoking cessa tion. Return or follow-up with your primary doctor if not better in 1 week, sooner if experiencin g difficulty swallowing liquids, progressive productive cough, associated chest pain, shortn ess of breath, fever or progessive sinus pressure/headache. Rajiv [place] documented in th is encounter Plan of Treatment Not on filedocumented as of this encounter Visit Diagnoses + + | Diagnosis | + + | Bronchitis with bronchospasm - Primary Acute bronchitis | + + | Cigarette smoker Tobacco use disorder | + + documented in this encounter
--- OUTSIDE RECORDS SUMMARY | ~2019-10-30 | XMS | Encounter Summary ---
Demographics + + + | Address | [address] | | | [place] [address] | + + + | Home Phone [...] | | | | | [place] [address] | | + + + + + | Ab Bunch | ECON | Unknown | | + + + + + Care Team Providers + +------+ + | Care Vehicle Modification Technician Name | Role | Phone | + +------+ + | Pj Abdi MD | PCP | | + +------+ + Encounter Details +--------+ + + + + | Date | Type | Department | Care Team | Description | +--------+ + + + + | 10/26/ | Abstract | [facility] | Jin Pj Caryl, | | | 2017 | | MEDICINE [place] | [address] | | | | | [address] | [place] | | | | | [place] | [address] | | | | | [address] | | | | | | [phone] | | | +--------+ + + + [...] | + +--------+ + + + | EXTERNAL LAB: PAP | Routin | 05/31/2016 | | Results for this | | SMEAR | e | | | procedure are in the | | | | | | results section. | + +--------+ + + + documented in this encounter Results External Lab: PAP Smear (05/31/2016) + + + + + + | Component | Value | Ref Range | Performed | Pathologist | | | | | At | Signature | + + + + + + | Pap Smear, | No evidence of | | | | | External | intraepithelial lesion | | | | | | or malignancy | | | | + + + + + + documented in this encounter Visit Diagnoses Not on filedocumented in this encounter"
--- OUTSIDE RECORDS SUMMARY | ~2019-10-30 | XMS | Encounter Summary ---
Demographics + + + | Address | [address] | | | [place] [address] | + + + | Home Phone [...] | | | | | [place] [address] | | + + + + + | Ab Romykia | ECON | Unknown | | + + + + + Care Team Providers + +------+ + | Care Project Control Manager Name | Role | Phone | [...] + + | 11/03/ | Refill | [facility] | Pj Abdi, | Letter; Medication | | 2017 | | MEDICINE [place] | [address] | Refill | | | | [address] | [place] | | | | | [place] | [phone] | | | | | [address] | | | | | | [phone] | | | +--------+--------+ + + + [...]
--- OUTSIDE RECORDS SUMMARY | ~2019-10-30 | XMS | Encounter Summary ---
Demographics + + + | Address | [address] | | | [place] [address] | + + + | Home Phone [...] | | | | | [place] [address] | | + + + + + | Ab Romykia | ECON | Unknown | | + + + + + Care Team Providers + +------+ + | Care Crusher Setter Name | Role | Phone | + +------+ + | Pj Abdi MD | PCP | | + +------+ + Reason for Visit + + + | Reason | Comments | + + + | Laceration | right upper arm has an open wound due to implanon removal, wants | | | steri-strip on it RM 3 | + + + Encounter Details +--------+---------+ + + + | Date | Type | Department | Care Team | Description | +--------+---------+ + + + | 03/26/ | Office | [facility] | Rajiv Delgado | Disruption of | | 2019 | Visit | CARE [address] | MD Caryl [address] | external surgical | | | | [place] | [place] | wound, initial | | | | [address] | [address] | encounter (Primary | | | | [phone] | | Dx) | +--------+---------+ + + + Social History [...] + + + | Blood Pressure | 122/78 | 03/26/2019 4:23 PM | | | | | PST | | + + + + + | Pulse | 79 | 03/26/2019 4:23 PM | | | | | PST | | + + + + + | Temperature | 37.2 C (98.9 F) | 03/26/2019 4:23 PM | | | | | PST | | + + + + + | Respiratory Rate | 14 | 03/26/2019 4:23 PM | | | | | PST | | + + + + + | Oxygen Saturation | 99% | 03/26/2019 4:23 PM | | | | | PST | | + + + + + | Inhaled Oxygen | - | - | | | Concentration | | | | + + + + + | Weight | 53 kg (116 lb 13.5 | 03/26/2019 4:23 PM | | | | oz) | PST | | + + + + + | Height | 162.6 cm (5' 4") | 03/26/2019 4:23 PM | | | | | PST | | + + + + + | Body Mass Index | 20.06 | 03/26/2019 4:23 PM | | | | | PST | | + + + + + documented in this encounter Patient Instructions Patient Instructions Rajiv Delgado MD - 03/26/2019 4:15 PM PSTKeep your wound herve n and dressed until healed. Clean wound with soap and water, pat dry and change dressing daily. Use Tylenol as needed for discomfort. Return if any signs of infection develop such as redness, pain, pus, increased warmth or sw elling or should you have any other concerns. documented in this encounter Progress Notes Rajiv Delgado MD - 03/26/2019 4:15 PM PSTFormatting of this note might be differen t from the original. Subjective: Chief Complaint: Laceration (right upper arm has an open wound due to implanon removal, wan ts steri-strip on it RM 3) Donna is a 23 y.o. female who comes in with her significant other for evaluation of wound after Implanon removal 3 days ago. She had a hormonal implant removed from her right upper arm last Tuesday via an incision over which Steri-Strips were placed. She was told to keep the Steri-Strips in place for 5 to 7 days. They accidentally came off when she took her nic rt off this morning. She had a little bleeding from the site initially which is since [facility] ed. She denies increased redness, warmth, swelling or drainage. Denies fever, chills, naus ea and vomiting. She is concerned that the Steri-Strips need to be replaced. No other compl aints. Patient's medications, allergies, past medical, surgical, social and family histories were reviewed and updated as appropriate. Objective: BP 122/78 | Pulse 79 | Temp 37.2 C (98.9 F) (Temporal) | Resp 14 | Ht 1.626 m (5' 4 ") | Wt 53 kg (116 lb 13.5 oz) | LMP 03/05/2019 (Approximate) | SpO2 99% | ? No | BMI 20.06 kg/m General Appearance: Alert, cooperative, well-appearing female in no distress, appears stat ed age Skin: 5 mm long transverse incision along the medial side of the mid right upper arm with a small overlying scab and a good skin margin apposition. There is mild ecchymosis distal to the incision. No erythema, warmth, edema, fluctuance, induration, bleeding, purulent drain age or tenderness. Gentle traction across the incision fails to produce dehiscence with the skin margins remaining adherent. Lymphatic: No lymphangitis. No axillary adenopathy. Assessment and Plans: 1. Disruption of external surgical wound, initial encounter Inadvertent removal of Steri-Strips from surgical wound after hormonal implant removal 3 da ys ago. Small wound is clean and intact without dehiscence, bleeding or signs of infection. Wound was cleaned and dressed with antibiotic ointment and a Band-Aid. Patient was given the following instructions and declined an AVS. Plan: Keep your wound clean and dressed until healed. Clean wound with soap and water, pat dry and change dressing daily. Use Tylenol as needed for discomfort. Return if any signs of infection develop such as redness, pain, pus, increased warmth or sw elling or should you have any other concerns. Rajiv Delgado MD documented i n this encounter Plan of Treatment Not on filedocumented as of this encounter Visit Diagnoses + + | Diagnosis | + + | Disruption of external surgical wound, initial encounter - Primary | + + documented in this encounter
--- OUTSIDE RECORDS SUMMARY | ~2019-10-30 | XMS | Encounter Summary ---
Demographics + + + | Address | [address] | | | [place] [address] | + + + | Home Phone [...] + + + | Author | [facility] | | | and Johnana | + + + | Organization | [facility] | | [...] | | | | | [place] [address] | | + + + + + | Ab Romykai | ECON | Unknown | | + + + + + Care Team Providers + +------+ + | Care Privacy Manager Name | Role | Phone | + +------+ + PCP | Unavailable | + +------+ + Encounter Details +--------+ + + + + | Date | Type | Department | Care Team | Description | +--------+ + + + + | 07/08/ | Hospital | [facility] | | | | 2010 | Encounter | [facility] | | | | | | [facility] [address] | | | | | | [place], | | | | | | [place] [id number] | | | | | | [phone] | | | +--------+ + + + [...]
--- OUTSIDE RECORDS SUMMARY | ~2019-10-30 | XMS | Encounter Summary ---
Demographics + + + | Address | [address] | | | [place] [address] | + + + | Home Phone | | + + + | Preferred Language | Unknown | + + + | Marital Status | Single | + + + | Taoism Affiliation | [id number] | + + + | Race | Unknown | + + + | Ethnic Group | Unknown | + + + Author + + + | Author | [facility] | | | and Johnana | + + + | Organization | [facility] | | [...] | | | | | [place] [address] | | + + + + + | Ab Romykia | ECON | Unknown | | + + + + + Care Team Providers + +------+ + | Care Credit Associate Name | Role | Phone | [...] | +--------+ + + + + | 12/14/ | Telephone | [facility] | Pj Abdi, | ER Follow-up | | 2018 | | MEDIC[facility] [place] | [address] | | | | | [address] | [place] | | | | | [place] | [address] | | | | | [address] | | | | | | [phone] | | | +--------+ + + + [...]
--- OUTSIDE RECORDS SUMMARY | ~2019-10-30 | XMS | Encounter Summary ---
Demographics + + + | Address | [address] | | | [place] [address] | + + + | Home Phone [...] | | | | | [place] [address] | | + + + + + | Ab Romykia | ECON | Unknown | | + + + + + Care Team Providers + +------+ + | Care Staff Pharmacist Hospital Name | Role | Phone | + [...] Description | +--------+--------+ + + + | 06/25/ | Refill | [facility] | Pj Abdi, | Medication Refill | | 2017 | | MEDICINE [place] | [address] | | | | | [address] | [place] | | | | | [place] | [address] | | | | | [address] | | | | | | [phone] | | | +--------+--------+ + + + [...]
--- OUTSIDE RECORDS SUMMARY | ~2019-10-30 | XMS | Encounter Summary ---
Demographics + + + | Address | [address] | | | [place] [address] | + + + | Home Phone | | + + + | Preferred Language | Unknown | + + + | Marital Status | Single | + + + | Scientologist Affiliation | 1013 | + + + [...] | | | | | [place] [address] | | + + + + + | Ab Romykia | ECON | Unknown | | + + + + + Care Team Providers + +------+ + | Care Developmental Mathematics Instructor Name | Role | Phone | + +------+ + | Pj Abdi MD | PCP | | + +------+ + Reason for Visit + + + | Reason | Comments | + + + | Suicide Attempt | | + + + Encounter Details +--------+ + + + + | Date | Type | Department | Care Team | Description | +--------+ + + + + | 07/18/ | Emergency | [facility] | Jeannette, | Suicide attempt | | 2018 | | [facility] | iMke Yarbrough MD [address] | (Primary Dx); | | | | CENTER [address] | [facility] | Abrasion of neck, | | | | [place], [place] | [place] [address] | initial encounter | | | | [address] | [phone] | | | | | [phone] | | | +--------+ + + + [...] + | Blood Pressure | 120/70 | 07/18/2017 10:50 AM | | | | | PST | | + + + + + | Pulse | 100 | 07/18/2017 10:50 AM | | | | | PST | | + + + + + | Temperature | 36.1 C (96.9 F) | 07/18/2017 8:13 AM | | | | | PST | | + + + + + | Respiratory Rate | 14 | 07/18/2017 10:50 AM | | | | | PST | | + + + + + | Oxygen Saturation | 100% | 07/18/2017 10:50 AM | | | | | PST | | + + + + + | Inhaled Oxygen | - | - | | | Concentration | | | | + + + + + | Weight | 54.4 kg (120 lb) | 07/18/2017 8:13 AM | | | | | PST | | + + + + + | Height | - | - | | + + + + + | Body Mass Index | 20.6 | 06/10/2017 5:23 PM | | | | | PST | | + + + + + documented in this encounter Discharge Instructions Instructions Mike Machado MD - . Please follow the safety plan as disc ussed with the crisis response unit counselor 2. Do not drink alcohol or use drugs 3. Call [facility] [[email or web address] at [phone] or return to the ER if you feel suicidal, homicidal o r unsafe [facility] [[email or web address] has walk-in intake hours at their main office at [address] [place] [address]. They have two appointments at 8:30am and two at 10:00am. You must be there 30 minutes prio r to that to complete paperwork. documented in this encounter Medications at Time [...] +---------+ + + | gabapentin | TAKE THREE CAPSULES | 90 | 5 | 06/27/19 | | | (NEURONTIN) 300 mg | DAILY | capsule | | 18 | 8 | | capsule | | | | | | + + + +---------+ + + | hydrOXYzine | TAKE TWO TABLETS | 60 | 5 | 06/27/19 | | | hydrochloride | EVERY SIX HOURS | tablet | | 18 | 8 | | (ATARAX) 25 mg [...] + +---------+ + + | oxybutynin | Take 1 tablet by | 30 | 5 | 06/23/19 | | | (DITROPAN XL) 5 mg | mouth Daily. | tablet | | 18 | 8 | | 24 hr | | | | | | | tabletIndications: | | | | | | | Urge incontinence | | | | | | + + + +---------+ + + | oxybutynin | Take 1 tablet by | 90 | 5 | 07/26/19 | | | (DITROPAN) 5 mg | mouth 2-3 times per | tablet | | 18 | 8 | | tablet | day | | | | | + + [...] tiZANidine | Take 1 tablet by | 60 | 3 | 06/23/19 | | | (ZANAFLEX) 4 mg | mouth every 6 hours | tablet | | 18 | 8 | | tabletIndications: | as needed. | | | | | | Whiplash injury to | | | | | | | neck, subsequent | | | | | | | encounter, Chronic | | | | | | | bilateral thoracic | | | | | | | back pain | | | | | | + [...] INFORMATION | CELSO | Routin | | 07/18/2017 8:11 AM | | EXCHANGE | | e | | PST | + +------+--------+ + + documented as of this encounter Procedures + +--------+ + + + | Procedure Name | Priori | Date/Time | Associated Diagnosis | Comments | | | ty | | | | + +--------+ + + + | DRUGS OF ABUSE, | STAT | 07/18/2017 | | Results for this | | SCREEN, URINE | | 10:24 AM | | procedure are in the | | | | PST | | results section. | + +--------+ + + + | URINALYSIS | STAT | 07/18/2017 | | Results for this | | | | 10:24 AM | | procedure are in the | | | | PST | | results section. | + +--------+ + + + | CT SOFT TISSUE NECK | STAT | 07/18/2017 | | Results for this | | W CONTRAST | | 9:49 AM | | procedure are in the | | | | PST | | results section. | + +--------+ + + + | CBC W/AUTO | STAT | 07/18/2017 | | Results for this | | DIFFERENTIAL | | 8:34 AM | | procedure are in the | | | | PST | | results section. | + +--------+ + + + | EXTRA LAVENDER TOP | Routin | 07/18/2017 | | Results for this | | TUBE | e | 8:34 AM | | procedure are in the | | | | PST | | results section. | + +--------+ + + + | EXTRA GREEN TOP TUBE | Routin | 07/18/2017 | | Results for this | | | e | 8:34 AM | | procedure are in the | | | | PST | | results section. | + +--------+ + + + | EXTRA BLUE TOP TUBE | Routin | 07/18/2017 | | Results for this | | | e | 8:34 AM | | procedure are in the | | | | PST | | results section. | + +--------+ + + + | , SERUM, | STAT | 07/18/2017 | | Results for this | | QUAL | | 8:34 AM | | procedure are in the | | | | PST | | results section. | + +--------+ + + + | ALCOHOL | STAT | 07/18/2017 | | Results for this | | | | 8:34 AM | | procedure are in the | | | | PST | | results section. | + +--------+ + + + | ACETAMINOPHEN LEVEL | STAT | 07/18/2017 | | Results for this | | | | 8:34 AM | | procedure are in the | | | | PST | | results section. | + +--------+ + + + | SALICYLATE LEVEL | STAT | 07/18/2017 | | Results for this | | | | 8:34 AM | | procedure are in the | | | | PST | | results section. | + +--------+ + + + | COMPREHENSIVE | STAT | 07/18/2017 | | Results for this | | METABOLIC PANEL | | 8:34 AM | | procedure are in the | | | | PST | | results section. | + +--------+ + + + | ED INFORMATION | Routin | 07/18/2017 | | | | EXCHANGE | e | 8:11 AM | | | | | | PST | | | + +--------+ + + + +---+--------+ | | | | | Proced | | | ure | | | Note - | | | Thomas, | | | Lab In | | | | | | Hlseve | | | n - | | | 07/18/ | | | 2017 | | | 8:12 | | | AM PST | | | | | | [...] | | | 8 | | | 08:08? | | | SHAH | | | LSH, | | | SABRIN | | | A | | | K?MRN: | | | | | | [id number] | | | [id number] | | | his | | | [...] | | | ent/a9 | | | [id number] | | | [id number] | | | [...] | | | int | | | Feb | | | 26, | | | 2018 | | | Prov[facility] | | | ence | | | [facility] | | | [facility] | | | [place] | | | [place] | | | Emerge | | | ncy | | | Emerge | | | ncy | | | [employer] | | | Cesar | | | 19, | | | 2018 | | | [facility] | | | [place] | | | Urgent | | | Care | | | [place] | | | [place] | | | Urgent | | | Care | | | | | | Outpat | | | ient | | | | | | Cough | | | | | | Acute | | | bronch | | | itis, | | | unspec | | | ified | | | | | | Nicoti | | | ne | | | depend | | | ence, | | | cigare | | | ttes, | | | uncomp | | | licate | | | d Cesar | | | 3, | | | 2018 | | | Provid | | | ence | | | [facility] | | | [facility] | | | [place] 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 | | | [...] | | | Center | | | 10 0 | | | Total | | | 10 0 | | | Note: | | [...] MED | | | | | | 2017- | | | 2-18 | | | HYDROC | | | ODONE- | | | ACETAM | | | IN | | | 5-325 | | | MG 30 | | | PJ | | | ABDI | | | 2 0 | | | 2017- | | | 1-18 | | | HYDROC | | | ODONE- | | | ACETAM | | | IN | | | 5-325 | | | MG 30 | | | PJ | | | ABDI | | | 2 0 | | | 2017 | | | 0-20 | | | HYDROC | | | ODONE- | | | ACETAM | | | IN | | | 5-325 | | | MG 30 | | | JP | | | ABDI | | | 2 0 | | | 2017 | | | 9-28 | | | HYDROC | | | ODONE- | | | ACETAM | | | IN | | | 5-325 | | | MG 30 | | | PJ | | | ABDI | | | 2 30 | | | 2017 | | | 9-24 | | | HYDROC | | | ODONE- | | | ACETAM | | | IN | | | 5-325 | | | MG 30 | | | PJ | | | ABDI | | | 2 5 | | | Rx | | | Summar | | | y (12 | | | Mo.)Me | | | tric | | | Count | | | CS | | | II-V | | | Rx 16 | | | CS-II | | | Rx 15 | | | Quanti | | | ty | | | Dispen | | | sed | | | 521 | | | Unique | | | | | | Prescr | | | ibers | | | 5 | | | Unique | | | | | | Pharma | | | cies 3 | | | | | | Benzos | | | 0 | | | Opioid | | | s 6 | | | Long | | | [...] | | | Dates | | | Mike | | | [...] | +---+--------+ documented in this encounter Results Urinalysis (07/18/2017 10:24 AM PST) + + + + + [...] - 1.030 | [facility] | | | [place], | | | [facility] | | [...] [address] | [place] | [phone] | | [facility] | | [address] | | | - LABORATORY | | | | + + + + + Drugs of Abuse, Screen, Urine (07/18/2017 10:24 AM PST) + + + + + [...] + + + + | Cocaine | Positive (A) | Negative | [facility] [...] [address] | [place] | [phone] | | [facility] | | [address] | | | - LABORATORY | | | | + + + + + CT Soft Tissue Neck w Contrast (07/18/2017 9:49 AM PST) + + | Specimen | + + | | + + + + + | Narrative | Performed At | + + + | ENHANCED CT SOFT TISSUE NECK 07/18/2017 9:18 AM CLINICAL | [facility] | | HISTORY: SUICIDE ATTEMPT/Hanging COMPARISON: Cervical MRI | | | July 2016 TECHNIQUE: Axial images are performed through the | | | neck following the uneventful intravenous administration of 75 mL | | | Omnipaque 350 contrast. Coronal and sagittal reformations are also | | | performed. FINDINGS: The pharynx, larynx and subglottic trachea | | | are unremarkable, along with the thyroid, submandibular and parotid | | | glands. No fracture or other abnormality of the hyoid bone or | | | thyroid cartilage is apparent. Structures of the floor of the mouth | | | are symmetric and unremarkable. No pathologic lymph node | | | enlargement is evident. The imaged brain, orbital contents and lung | | | apices are unremarkable. The carotid and vertebral arteries are | | | widely patent without evidence of dissection or stenosis. Venous | | | structures likewise appear widely patent. There is straightening of | | | the cervical lordosis. Craniocervical alignment and cervical | | | vertebral height, disc spaces and alignment are otherwise maintained | | | without evident fracture or subluxation. No central canal or | | | foraminal stenosis is visible. IMPRESSION - 1. STRAIGHTENING | | | OF THE CERVICAL LORDOSIS WITHOUT EVIDENT FRACTURE OR SUBLUXATION. | | | 2. NO EVIDENCE OF VASCULAR INJURY OR OTHER ABNORMALITY OF THE NECK. | | | Images were provided for interpretation on July 18, 2017 at | | | 0950 hours. Results were finalized at 1005 hours. Dictated and | | | Signed by: Brad Cline MD Electronically signed: 07/18/2017 10:02 | | | AM | | + + + + + | Procedure Note | + + | Thomas, Rad Results In - 07/18/2017 10:05 [address] PST [address] SOFT TISSUE NECK 07/18/2017 | | 9:18 AM CLINICAL HISTORY: SUICIDE ATTEMPT/Hanging COMPARISON: Cervical MRI July | | 2016 TECHNIQUE: Axial images are performed through the neck following the | | uneventfulintravenous administration of 75 mL Omnipaque 350 contrast. Coronal | | andsagittal reformations are also performed. FINDINGS: The pharynx, larynx and | | subglottic trachea are unremarkable, alongwith the thyroid, submandibular and parotid | | glands. No fracture or otherabnormality of the hyoid bone or thyroid cartilage is | | apparent. Structures ofthe floor of the mouth are symmetric and unremarkable. No | | pathologic lymph nodeenlargement is evident. The imaged brain, orbital contents and | | lung apices areunremarkable. The carotid and vertebral arteries are widely patent | | withoutevidence of dissection or stenosis. Venous structures likewise appear | | widelypatent. There is straightening of the cervical lordosis. Craniocervicalalignment | | and cervical vertebral height, disc spaces and alignment are otherwisemaintained | | without evident fracture or subluxation. No central canal orforaminal stenosis is | | visible.IMPRESSION - 1. STRAIGHTENING OF THE CERVICAL LORDOSIS WITHOUT EVIDENT FRACTURE | | ORSUBLUXATION.2. NO EVIDENCE OF VASCULAR INJURY OR OTHER ABNORMALITY OF THE | | NECK.Images were provided for interpretation on July 18, 2017 at 0950 hours. Results | | were finalized at 1005 hours.Dictated and Signed by: Brad Cline MD Electronically | | signed: 07/18/2017 10:02 AM | |maintained without evident fracture or subluxation. No central canal or | |foraminal stenosis is visible. | | | |IMPRESSION - | |1. STRAIGHTENING OF THE CERVICAL LORDOSIS WITHOUT EVIDENT FRACTURE OR | |SUBLUXATION. | | | |2. NO EVIDENCE OF VASCULAR INJURY OR OTHER ABNORMALITY OF THE NECK. | | | |Images were provided for interpretation on July 18, 2017 at 0950 hours. | |Results were finalized at 1005 hours. | | | |Dictated and Signed by: Brad Cline MD | | Electronically signed: 07/18/2017 10:02 AM | + + + +---------+ + + | Performing | Address | City/State/Zipcode | Phone Number | | Organization | | | | + +---------+ + + | [facility] | | | | + +---------+ + + Extra Green Top Tube (07/18/2017 8:34 AM PST) + +-------+ + + + | Component [...] [address] | [place] | [phone] | | [facility] | | [address] | | | - LABORATORY | | | | + + + + + Extra Blue Top Tube (07/18/2017 8:34 AM PST) + +-------+ + + + | Component | Value | Ref Range | Performed | Pathologist | | | | | At | Signature | + +-------+ + + + | Extra Blue | Done | | [facility] | | | Top Tube | | | [facility] | | | | | | [...] ST. | [address] | [place] | [phone] | | [facility] | | [address] | | | - LABORATORY | | | | + + + + + Extra Lavender Top Tube (07/18/2017 8:34 AM PST) + +-------+ + + + | Component | Value | Ref Range | Performed | Pathologist | | | | | At | Signature | + +-------+ + + + | Extra | Done | | [facility] | | | Lavender | | | [facility] | | | Top Tube | | | MEDICAL | | | [...] [address] | [place] | [phone] | | [facility] | | [address] | | | - LABORATORY | | | | + + + + + Comprehensive Metabolic Panel (07/18/2017 8:34 AM PST) + + + + + + | Component | Value | Ref Range | Performed | Pathologist | | | | | At | Signature | + + + + + + | Na | 141Comment: This is an | 136 - 149 | [facility] | | | | appended report. These | mmol/L | [facility] | | [...] + + + + | Cl | 106Comment: This is an | 98 - 109 mmol/L | [facility] | | | | appended report. These | | [facility] | | | | results have been | | MEDICAL | | | | appended to a previously | | CENTER - | | | | preliminary verified | | LABORATORY | | | | report. | | | | + + + + + + | CO2 | 25Comment: This is an | 24 - 31 mmol/L | [facility] | | | | appended report. These | | [facility] | | | | results have been | | MEDICAL | | | | appended to a previously | | CENTER - | | | | preliminary verified | | LABORATORY | | | | report. | | | | + + + + + + | Anion Gap | 10Comment: This is an | 3 - 16 mmol/L | [facility] | | | | appended report. These | | [facility] | | | | results have been | | MEDICAL | | | | appended to a previously | | CENTER - | | | | preliminary verified | | LABORATORY | | | | report. | | | | + + + + + + | Glucose | 101 | 70 - 109 mg/dL | [facility] | | | | | | [facility] | | | | | | MEDICAL | | | | | | CENTER - | | | | | | LABORATORY | | + + + + + + | BUN | 3 (L) | 7 - 18 mg/dL | [facility] | | | | | | [facility] | | | | | | MEDICAL | | | | | | CENTER - | | | | | | LABORATORY | | + + + + + + | Creatinine | 0.76 | 0.60 - 1.30 | [facility] | [...] | | | FILTRATION | mL/min/1.73m2 | [facility] | | | CHILEAN | RATE,ESTIMATED | | MEDICAL | | | | mL/min/1.15f8Muhe than | | CENTER - | | [...] + + + + | Calcium | 9.5Comment: This is an | 8.3 - 10.5 | [facility] | | | | appended report. These | mg/dL | [facility] | | | | results have been | | MEDICAL | | | | appended to a previously | | CENTER - | | | | preliminary verified | | LABORATORY | | | | report. | | | | + + + + + + | Albumin | 4.4 | 3.2 - 5.0 g/dL | [facility] | | | | | | [facility] | | | | | | MEDICAL | | | | | | CENTER - | | | | | | LABORATORY | | + + + + + + | Bilirubin | 0.6 | 0.1 - 1.5 mg/dL | [facility] | | | Total | | | [facility] | | | | | | MEDICAL | | | | | | CENTER - | | | | | | LABORATORY | | + + + + + + | Total | 7.3Comment: This is a | 6.0 - 7.8 g/dL | [facility] | | | Protein | corrected result. | | [facility] | | | | Previous result was 7.4 | | MEDICAL | | | | g/dL on 07/18/2017 at | | CENTER - | | | | 0915 PST | | LABORATORY | | + + + + + + | AST | 24 | 10 - 42 U/L | [facility] | | | | | | [facility] | | | | | | MEDICAL | | | | | | CENTER - | | | | | | LABORATORY | | + + + + + + | ALT | 16 | 6 - 45 U/L | [facility] | | | | | | [facility] | | | | | | MEDICAL | | | | | | CENTER - | | | | | | LABORATORY | | + + + + + + | Alkaline | 67 | 40 - 110 U/L | [facility] | | | Phosphatase | | | [facility] | | | | | | MEDICAL | | | | | | CENTER - | | | | | | LABORATORY | | + + + + + + | Globulin | 2.9Comment: This is a | 2.1 - 3.8 g/dL | [facility] | | | | corrected result. | | [facility] | | | | Previous result was 3.0 | | MEDICAL | | | | g/dL on 07/18/2017 at | | CENTER - | | | | 0915 PST | | LABORATORY | | + + + + + + | Albumin/Bianca | 1.5 | 0.8 - 2.0 | [facility] | | | bulin Ratio | | | [facility] | | | | | | MEDICAL | | | | | | CENTER - | | | | | | LABORATORY | | + + + + + + | BUN/Creatin | 3.9 | | [facility] | | | ine [...] [address] | [place] | [phone] | | [facility] | | [address] | | | - LABORATORY | | | | + + + + + CBC w/ Auto Differential (07/18/2017 8:34 AM PST) + + + + + + | Component | Value | Ref Range | Performed | Pathologist | | | | | At | Signature | + + + + + + | WBC | 9.1 | 4.0 - 11.0 K/uL | [facility] | | | | | | [facility] | | | | | | MEDICAL | | | | | | CENTER - | | | | | | LABORATORY | | + + + + + + | RBC | 4.28 | 3.70 - 5.20 | [facility] | | | | | M/uL | [facility] | | | | | | MEDICAL | | | | | | CENTER - | | | | | | LABORATORY | | + + + + + + | Hemoglobin | 13.0 | 11.5 - 16.0 | [facility] | | | | | g/dL | [facility] | | | | | | MEDICAL | | | | | | CENTER - | | | | | | LABORATORY | | + + + + + + | Hematocrit | 39.5 | 34.0 - 47.0 % | [facility] | | | | | | [facility] | | | | | | MEDICAL | | | | | | CENTER - | | | | | | LABORATORY | | + + + + + + | MCV | 92.1 | 83.0 - 101.0 fL | [facility] | | | | | | [facility] | | | | | | MEDICAL | | | | | | CENTER - | | | | | | LABORATORY | | + + + + + + | MCH | 30.3 | 28.0 - 35.0 pg | [facility] | | | | | | [facility] | | | | | [...] + + + + | RDW-CV | 13.4 | <15.0 % | [facility] | | | | | | [facility] | | | | | | MEDICAL | | | | | | CENTER - | | | | | | LABORATORY | | + + + + + + | Platelet | 354 | 140 - 440 K/uL | [facility] [...] + + + + | % | 74.4 | 45.0 - 82.0 % | [facility] | | | Neutrophils | | | [facility] | | | | | | MEDICAL | | | | | | CENTER - | | | | | | LABORATORY | | + + + + + + | % | 19.5 (L) | 20.0 - 45.0 % | [facility] | | | Lymphocytes | | | [facility] | | | | | | MEDICAL | | | | | | CENTER - | | | | | | LABORATORY | | + + + + + + | % Monocytes | 4.8 | 4.0 - 12.0 % | [facility] [...] + | % Basophils | 0.5 | 0.0 - 1.0 % | [facility] | | | | | | [facility] | | | | | | MEDICAL | | | | | | CENTER - | | | | | | LABORATORY | | + + + + + + | Absolute | 6.80 | 1.80 - 8.50 | [facility] | | | Neutrophils | | K/uL | [facility] | | | | | | MEDICAL | | | | | | CENTER - | | | | | | LABORATORY | | + + + + + + | Absolute | 1.80 | 0.60 - 3.20 | [facility] | [...] | Monocytes | | K/uL | [facility] | [...] | | Basophils | | K/uL | [facility] | | | | | | MEDICAL [...] [address] | [place] | [phone] | | [facility] | | [address] | | | - LABORATORY | | | | + + + + + Salicylate Level (07/18/2017 8:34 AM PST) + +-------+ + + + | Component | Value | Ref Range | Performed | Pathologist | | | | | At | Signature | + +-------+ + + + | Salicylate | <4.0 | <30.0 mg/dL | [facility] | | | Level | | | [facility] | | | | | | [...] [address] | [place] | [phone] | | [facility] | | [address] | | | - LABORATORY | | | | + + + + + Ethanol (07/18/2017 8:34 AM PST) + +-------+ + + + | Component | Value | Ref Range | Performed | Pathologist | | | | | At | Signature | + +-------+ + + + | ALCOHOL, | <5 | <400 mg/dL | [facility] | | | SERUM/PLASM | | | [facility] | | | A | | | MEDICAL | | | [...] ST. | [address] | [place], [place] | [phone] | | [facility] | | [address] | | | - LABORATORY | | | | + + + + + Acetaminophen Level (07/18/2017 8:34 AM PST) + +-------+ + + + | Component | Value | Ref Range | Performed | Pathologist | | | | | At | Signature | + +-------+ + + + | Acetaminoph | <10 | <10 ug/mL | [facility] | | | en Level | | | [facility] | | [...] + | [facility] | [address] | [place] | [phone] | | [facility] | | [address] | | | - LABORATORY | | | | + + + + + , Serum, Qual (07/18/2017 8:34 AM PST) + + + + + + | Component | Value | Ref Range | Performed | Pathologist | | | | | At | Signature | + + + + + + | hCG Screen, | Negative | Negative | [facility] | | | Serum | | | [facility] | | [...] [address] | [place] | [phone] | | [facility] | | [address] | | | - LABORATORY | | | | + + + + + documented in this encounter Visit Diagnoses + + | Diagnosis | + + | Suicide attempt (HCC) - Primary Suicide and self-inflicted injury by unspecified | | means | + + | Abrasion of neck, initial encounter | + + documented in this encounter Administered Medications + +--------+ +--------+------+------+ | Medication Order | MAR | Action | Dose | Rate | Site | | | Action | Date | | | | + +--------+ +--------+------+------+ | iohexol (OMNIPAQUE 350) 350 | Given | 07/18/19 | 75 mLs | | | | mg/mL injection 75 mL 75 mL, | | 18 9:43 | | | | | Intravenous, ONCE PRN, Other, for | | AM PST | | | | | imaging CT study, Starting Mon | | | | | | | 07/18/17 at 0949, For 1 dose, | | | | | | | Radiology | | | | | | + +--------+ +--------+------+------+ +---+---+ | | | +---+---+ + +---------+ +--------+-------+---+ | sodium chloride 0.9% (NS) | New Bag | 07/18/19 | 1,000 | 1000 | | | infusion at 1,000 mL/hr, | | 18 8:40 | mLs | mL/hr | | | Intravenous, FIXED VOLUME (see | | AM PST | | | | | admin instruction), Starting Mon | | | | | | | 07/18/17 at 0825, 1000ml, | | | | | | + +---------+ +--------+-------+---+ +---+---+ | | | +---+---+ documented in this encounter"
--- OUTSIDE RECORDS SUMMARY | ~2019-10-30 | XMS | Encounter Summary ---
Demographics + + + | Address | [address] | | | [place] [address] | + + + | Home Phone [...] | | | | | [place] [address] | | + + + + + | Ab Romykia | ECON | Unknown | | + + + + + Care Team Providers + +------+ + | Care Construction Project Engineer Name | Role | Phone | [...] + + | 09/29/ | Telephone | [facility] | Sophie Carrillo, | Medication Follow-up | | 2019 | | MEDICINE [address] | PharmD [address] | | | | | [facility] | [facility], | | | | | [place] [address] | [place] [address] | | | | | [phone] | [phone] | | | | | | | [...]
--- OUTSIDE RECORDS SUMMARY | ~2019-10-30 | XMS | Encounter Summary ---
Demographics + + + | Address | [address] | | | [place] [address] | + + + | Home Phone [...] | | | | | [place] [address] | | + + + + + | Ab Bunch | ECON | Unknown | | + + + + + Care Team Providers + +------+ + | Care Shield Runner Name | Role | Phone | + [...] + + | 09/28/ | Telephone | [facility] | Pj Abdi, | Results, Imaging; | | 2018 | | [facility] [place] | [address] | Lab Results | | | | [address] | [place] | | | | | [place] | [address] | | | | | [address] | | | | | | [phone] | | | +--------+ + + + [...]
--- OUTSIDE RECORDS SUMMARY | ~2019-10-30 | XMS | Encounter Summary ---
Demographics + + + | Address | [address] | | | [place] [address] | + + + | Home Phone | | + + + | Preferred Language | Unknown | + + + | Marital Status | Single | + + + | Shinto Affiliation | 1013 | + + + [...] | | | | | [place] [address] | | + + + + + | Ab Romykia | ECON | Unknown | | + + + + + Care Team Providers + +------+ + | Care Tobacco Stemmer Machine Name | Role | Phone | + +------+ + PCP | Unavailable | + +------+ + Encounter Details +--------+ + + + + | Date | Type | Department | Care Team | Description | +--------+ + + + + | 01/13/ | Hospital | [facility] | Mike Fernández MD | | | 2011 | Encounter | MED CTR XRAY [address] | [address] [facility] | | | | | [place] | [place], [place] | | | | | [place] [address] | [address] | | | | | [phone] | | | +--------+ + + + [...] + + | US PELVIS | | 01/14/2012 | | Results for this | | TRANSABDOMINAL | | 2:35 PM | | procedure are in the | | | | PDT | | results section. | + +--------+ + + + | US NON-OB | | 01/14/2012 | | Results for this | | TRANSVAGINAL | | 2:35 PM | | procedure are in the | | | | PDT | | results section. | + +--------+ + + + documented in this encounter Results US Non-Ob Transvaginal (01/14/2012 2:35 PM PDT) + + | Specimen | + + | | + + + + + | Narrative | Performed At | + + + | [facility] Diagnostic Imaging Department | [facility] | | [address] | [facility] | | Accession Number: [id number] | [facility] | | TRANSABDOMINAL AND TRANSVAGINAL PELVIC ULTRASOUND 01/14/2012 | | | CLINICAL HISTORY: PELVIC PAIN, HISTORY OF OVARIAN CYSTS. | | | COMPARISON: Pelvic ultrasound 11/19/2011, CT abdomen and pelvis | | | 01/07/2012. TRANSABDOMINAL FINDINGS: The uterus measures 7.9 | | | x 2.9 x 3.2 cm and is anteverted. No endometrial fluid collection | | | or myometrial abnormality is evident. An anechoic cystic structure | | | is now evident in the right ovary, and corresponds with that | | | described on previous CT. The cystic structure described in the | | | left ovary on previous ultrasound has resolved or is much smaller, | | | with only a small anechoic cyst visible presently. No free pelvic | | | fluid is evident. TRANSVAGINAL FINDINGS: Transvaginal | | | scanning is performed to better characterize the uterus and adnexae. | | | The endometrium measures up to 3 mm in width. No endometrial | | | fluid collection or myometrial abnormality is evident. An anechoic | | | cyst measuring up to 3.9 cm in maximal dimension is noted within | | | the right ovary, which measures up to 4.0 x 3.3 x 4.1 cm. The left | | | ovary measures 2.6 x 2.2 x 2.5 cm and contains an anechoic structure | | | measuring up to 1.0 cm, demonstrating somewhat angular margins and | | | favoring a collapsing cyst. This is much smaller compared with the | | | cystic structure seen on previous ultrasound. Both ovaries | | | demonstrate normal stromal blood flow with duplex interrogation. | | | Trace anechoic free fluid is noted in the cul-de-sac. | | | IMPRESSION: 1. 3.9 CM ANECHOIC RIGHT OVARIAN CYST, CORRESPONDING | | | WITH THE STRUCTURE DESCRIBED ON CT OF 01/07/2012, AND NEW FROM | | | ULTRASOUND OF 11/19/2011. THERE IS NO EVIDENCE OF OVARIAN TORSION. | | | 2. RESOLVING LEFT OVARIAN CYST. 3. TRACE FREE | | | PELVIC FLUID. <Electronically Signed by Brad Cline MD> 01/17/12 | | | 0831 | | + + + + + | Procedure Note | + + | Honorio, Rad Conversion - 06/29/2013 5:55 PM [facility] | | Diagnostic Imaging Department | | [address] | | | | | | | | Accession Number: [id number] | | | | | | TRANSABDOMINAL AND TRANSVAGINAL PELVIC ULTRASOUND 01/14/2012 | | | | CLINICAL HISTORY: PELVIC PAIN, HISTORY OF OVARIAN CYSTS. | | | | COMPARISON: Pelvic ultrasound 11/19/2011, CT abdomen and pelvis 01/07/2012. | | | | TRANSABDOMINAL FINDINGS: The uterus measures 7.9 x 2.9 x 3.2 cm and is | | anteverted. No endometrial fluid collection or myometrial abnormality is | | evident. An anechoic cystic structure is now evident in the right ovary, and | | corresponds with that described on previous CT. The cystic structure described | | in the left ovary on previous ultrasound has resolved or is much smaller, with | | only a small anechoic cyst visible presently. No free pelvic fluid is evident. | | | | | | TRANSVAGINAL FINDINGS: Transvaginal scanning is performed to better | | characterize the uterus and adnexae. The endometrium measures up to 3 mm in | | width. No endometrial fluid collection or myometrial abnormality is evident. | | An anechoic cyst measuring up to 3.9 cm in maximal dimension is noted within | | the right ovary, which measures up to 4.0 x 3.3 x 4.1 cm. The left ovary | | measures 2.6 x 2.2 x 2.5 cm and contains an anechoic structure measuring up to | | 1.0 cm, demonstrating somewhat angular margins and favoring a collapsing cyst. | | This is much smaller compared with the cystic structure seen on previous | | ultrasound. Both ovaries demonstrate normal stromal blood flow with duplex | | interrogation. Trace anechoic free fluid is noted in the cul-de-sac. | | | | IMPRESSION: | | 1. 3.9 CM ANECHOIC RIGHT OVARIAN CYST, CORRESPONDING WITH THE STRUCTURE | | DESCRIBED ON CT OF 01/07/2012, AND NEW FROM ULTRASOUND OF 11/19/2011. THERE IS | | NO EVIDENCE OF OVARIAN TORSION. | | | | 2. RESOLVING LEFT OVARIAN CYST. | | | | 3. TRACE FREE PELVIC FLUID. | | <Electronically Signed by Brad Cline MD> 01/17/12 0831 | + + + +---------+ + + | Performing | Address | City/State/Zipcode | Phone Number | | Organization | | | | + +---------+ + + | [place] | | | | | [facility] | | | | + +---------+ + + US Pelvis Transabdominal (01/14/2012 2:35 PM PDT) + + | Specimen | + + | | + + + + + | Narrative | Performed At | + + + | [facility] Diagnostic Imaging Department | [facility] | | [address] | [facility] | | TRANSABDOMINAL AND TRANSVAGINAL | DIAG IMG | | PELVIC ULTRASOUND 01/14/2012 CLINICAL HISTORY: PELVIC PAIN, | | | HISTORY OF OVARIAN CYSTS. COMPARISON: Pelvic ultrasound | | | 11/19/2011, CT abdomen and pelvis 01/07/2012. TRANSABDOMINAL | | | FINDINGS: The uterus measures 7.9 x 2.9 x 3.2 cm and is anteverted. | | | No endometrial f luid collection or myometrial abnormality is | | | evident. An anechoic cystic structure is now evident in the right | | | ovary, and corresponds with that described on previous CT. The | | | cystic structure described in the left ovary on previous ultrasound | | | has resolved or is much smaller, with only a small anechoic cyst | | | visible presently. No free pelvic fluid is evident. | | | TRANSVAGINAL FINDINGS: Transvaginal scanning is performed to better | | | characterize the uterus and adne xae. The endometrium measures up | | | to 3 mm in width. No endometrial fluid collection or myometrial abn | | | ormality is evident. An anechoic cyst measuring up to 3.9 cm in | | | maximal dimension is noted within th e right ovary, which measures up | | | to 4.0 x 3.3 x 4.1 cm. The left ovary measures 2.6 x 2.2 x 2.5 cm a | | | nd contains an anechoic structure measuring up to 1.0 cm, | | | demonstrating somewhat annular margins and favoring a collapsing | | | cyst. This is much smaller compared with the cystic structure seen on | | | previous ultrasound. Both ovaries demonstrate normal stromal blood | | | flow with duplex interrogation. Trace anec hoic free fluid is noted | | | in the cul-de-sac. IMPRESSION: 1. 3.9 CM ANECHOIC RIGHT | | | OVARIAN CYST, CORRESPONDING WITH THE STRUCTURE DESCRIBED ON CT OF | | | 2, AND NEW FROM ULTRASOUND OF 11/19/2011. THERE IS NO | | | EVIDENCE OF OVARIAN TORSION. 2. RESOLVING LEFT OVARIAN CYST. | | | 3. TRACE FREE PELVIC FLUID. Dictated Date/Time: | | | 01/14/2012 16:10 Transcribed Date/Time: 01/14/2012 17:33 | | | Class B Truck Driver: <Electronically Signed by Brad Cline MD> | | | 01/14/12 2324 | | + + + + + | Procedure Note | + + | Honorio, Brown Conversion - 06/29/2013 5:54 PM [facility] | | Diagnostic Imaging Department [address] [place] [place] | | TRANSABDOMINAL AND TRANSVAGINAL PELVIC ULTRASOUND | | 01/14/2012 CLINICAL HISTORY: PELVIC PAIN, HISTORY OF OVARIAN CYSTS. COMPARISON: | | Pelvic ultrasound 11/19/2011, CT abdomen and pelvis 01/07/2012. TRANSABDOMINAL | | FINDINGS: The uterus measures 7.9 x 2.9 x 3.2 cm and is anteverted. No endometrial | | fluid collection or myometrial abnormality is evident. An anechoic cystic structure is | | now evident in the right ovary, and corresponds with that described on previous CT. The | | cystic structure described in the left ovary on previous ultrasound has resolved or is | | much smaller, with only a small anechoic cyst visible presently. No free pelvic fluid | | is evident. TRANSVAGINAL FINDINGS: Transvaginal scanning is performed to better | | characterize the uterus and adnexae. The endometrium measures up to 3 mm in width. No | | endometrial fluid collection or myometrial abnormality is evident. An anechoic cyst | | measuring up to 3.9 cm in maximal dimension is noted within the right ovary, which | | measures up to 4.0 x 3.3 x 4.1 cm. The left ovary measures 2.6 x 2.2 x 2.5 cm and | | contains an anechoic structure measuring up to 1.0 cm, demonstrating somewhat annular | | margins and favoring a collapsing cyst. This is much smaller compared with the cystic | | structure seen on previous ultrasound. Both ovaries demonstrate normal stromal blood | | flow with duplex interrogation. Trace anechoic free fluid is noted in the cul-de-sac. | | IMPRESSION: 1. 3.9 CM ANECHOIC RIGHT OVARIAN CYST, CORRESPONDING WITH THE STRUCTURE | | DESCRIBED ON CT OF 01/07/2012, AND NEW FROM ULTRASOUND OF 11/19/2011. THERE IS NO | | EVIDENCE OF OVARIAN TORSION. 2. RESOLVING LEFT OVARIAN CYST. 3. TRACE FREE PELVIC | | FLUID. Dictated Date/Time: 01/14/2012 16:10Transcribed Date/Time: 01/14/2012 | | 17:33Transcriptionist: <Electronically Signed by Brad Cline MD> 01/14/122323 | |ultrasound. Both ovaries demonstrate normal stromal blood flow with duplex interrogation. Trace anec | |hoic free fluid is noted in the cul-de-sac. | | | |IMPRESSION: | |1. 3.9 CM ANECHOIC RIGHT OVARIAN CYST, CORRESPONDING WITH THE STRUCTURE DESCRIBED ON CT OF | |2, AND NEW FROM ULTRASOUND OF 11/19/2011. THERE IS NO EVIDENCE OF OVARIAN TORSION. | | | |2. RESOLVING LEFT OVARIAN CYST. | | | |3. TRACE FREE PELVIC FLUID. | | | |Dictated Date/Time: 01/14/2012 16:10 | |Transcribed Date/Time: 01/14/2012 17:33 | |Class B Truck Driver: | |<Electronically Signed by Brad Cline MD> 01/14/124 | + + + +---------+ + + | Performing | Address | City/State/Zipcode | Phone Number | | Organization | | | | + +---------+ + + | [place] | | | | | [facility] | | | | + +---------+ + + documented in this encounter Visit Diagnoses Not on filedocumented in this encounter"
--- OUTSIDE RECORDS SUMMARY | ~2019-10-30 | XMS | Encounter Summary ---
Demographics + + + | Address | [address] | | | [place] [address] | + + + | Home Phone [...] | | | | | [place] [address] | | + + + + + | Ab Bunch | ECON | Unknown | | + + + + + Care Team Providers + +------+ + | Care Supervisor Electrolytic Tinning Name | Role | Phone | + [...] | | | pain | | [place] [address] | | | | | [R10.31] | | Phone: | | | | | Procedures | | [phone] | | | | | [place] | | Fax: | | | | | LAP,DIAGNOST | | [phone] | | | | | IC ABDOMEN [...] Laparoscopy | | | | [address] | [address] [place] | laparoscopic ovarian | | | | [place], [place] | [place] [address] | drilling,right | | | | [address] | [phone] | | | | | [phone] | | | +--------+---------+ + + + [...] | 1.010, 1.015, | | | | Carmine, | | 1.020, 1.025 | | | | POC | | | | | + + + + + + | Internal QC | Acceptable | | | | + + + + + + | Lot Number | [id number] | | | | + + + [...] | | | | | | use Tyner 10/325 if ordered. If | | | [...]
--- OUTSIDE RECORDS SUMMARY | ~2019-10-30 | XMS | Encounter Summary ---
Demographics + + + | Address | [address] | | | [place] [address] | + + + | Home Phone | | + + + | Preferred Language | Unknown | + + + | Marital Status | Single | + + + | Quaker Affiliation | 1013 | + + + | Race | Unknown | + + + | Ethnic Group | Unknown | + + + Author + + + | Author | [facility] | | | and [place] | + + + | Organization | [facility] | | | and [place] | + + + | Address | Unknown | + + + | Phone | Unavailable | + + + Support + + + + + | Name | Relationship | Address | Phone | + + + + + | Isma Hogan | ECON | [address] | | | | | [place] [address] | | + + + + + | Ab Romykia | ECON | Unknown | | + + + + + Care Team Providers + +------+ + | Care Nuclear Power Reactor Operator Name | Role | Phone | + +------+ + | No, Physician | PCP | Unavailable | + +------+ + Reason for Visit + + + | Reason | Comments | + + + | Back Injury | Rm 3/ OM DOI: 04/07/15 | + + + Encounter Details +--------+---------+ + + + | Date | Type | Department | Care Team | Description | +--------+---------+ + + + | 04/07/ | Office | [facility] | Jesse Chaudhry, | Strain of mid-back, | | 2014 | Visit | CARE [address] | [address] | initial encounter | | | | [place] | [place] | (Primary Dx); Work | | | | [address] | [address] | related injury | | | | [phone] | | | +--------+---------+ + + + [...] + + + | Blood Pressure | 131/86 | 04/07/2015 6:17 PM | | | | | PST | | + + + + + | Pulse | 83 | 04/07/2015 6:17 PM | | | | | PST | | + + + + + | Temperature | 37.2 C (99 F) | 04/07/2015 6:17 PM | | | | | PST | | + + + + + | Respiratory Rate | 14 | 04/07/2015 6:17 PM | | | | | PST | | + + + + + | Oxygen Saturation | 94% | 04/07/2015 6:17 PM | | | | | PST | | + + + + + | Inhaled Oxygen | - | - | | | Concentration | | | | + + + + + | Weight | 55.7 kg (122 lb 11.2 | 04/07/2015 6:17 PM | | | | oz) | PST | | + + + + + | Height | 162.6 cm (5' 4") | 04/07/2015 6:17 PM | | | | | PST | | + + + + + | Body Mass Index | 21.06 | 04/07/2015 6:17 PM | | | | | PST | | + + + + + documented in this encounter Patient Instructions Patient Instructions Jesse Chaudhry MD - 04/07/2015 7:03 PM PSTUse use intermittent ice for the next day or 2, followed with heat after that, and light activity, with slow stretch ing and range of motion for your back as needed. Take naproxen 500 mg twice a day and hydro codone with Tylenol as directed as needed for pain. Remain off work through tomorrow follow ed with light duty after that with no lifting over 10 pounds, limited bending to 10%, and no patient transfers, with those restrictions remaining until follow-up here next week. Plan to follow up with Dr. Keating as scheduled as well. Return to clinic sooner as needed should symptoms change or worsen. documented in this encounter Progress Notes Jesse Chaudhry MD - 04/07/2015 7:55 PM PSTFormatting of this note might be different fr om the original. Subjective: Chief Complaint: Back Injury Donna is a 19 y.o. 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 She states is similar to what she had last month wit h a work-related injury, only this is more severe and more diffuse. She denies radiation of pain to the extremities and denies any weakness or paresthesias. She states her prior back pain had greatly improved though was not yet resolved. No other complaints. Patient's medications, allergies, past medical, surgical, social and family histories were reviewed and updated as appropriate. Objective: BP 131/86 mmHg | Pulse 83 | Temp(Src) 37.2 C (99 F) (Temporal) | Resp 14 | Ht 1.626 m ( 5' 4") | Wt 55.656 kg (122 lb 11.2 oz) | BMI 21.05 kg/m2 | SpO2 94% General Appearance: Alert, cooperative, no distress, appears stated age Back has moderate tenderness along the right lower thoracic or spinal muscles to palpation, with mild diffuse tenderness throughout the lower thoracic region. The rest of the back is nontender. No focal spinal tenderness. Lower extremities with normal strength and sensation throughout, with reflexes 2+ and symme tric to knee jerk and ankle jerk with negative straight leg raise bilaterally. Assessment and Plans: Lower thoracic back strain from work-related injury. We'll treat with intermittent ice for the next 2 days, with intermittent heat following that, light activity, slow stretching, an d gentle range of motion. She may take naproxen 500 mg twice a day as she had previously be en doing, and Lortab 5/325 as needed. She'll not work for the next 2 days and may resume [place] activity on April 09, with restrictions consisting of no lifting over 10 pounds, no p atient transfers, and no bending over 10% of the day. She has a follow-up appointment with Dr. Keating in 8 days. Return here sooner as needed. documented in this e ncounter Plan of Treatment Not on filedocumented as of this encounter Visit Diagnoses + + | Diagnosis | + + | Strain of mid-back, initial encounter - Primary | + + | Work related injury Injury, other and unspecified, unspecified site | + + documented in this encounter
--- OUTSIDE RECORDS SUMMARY | ~2019-10-30 | XMS | Encounter Summary ---
Demographics + + + | Address | [address] | | | [place] [address] | + + + | Home Phone | | + + + | Preferred Language | Unknown | + + + | Marital Status | Single | + + + | Catholic Affiliation | 1013 | + + [...] | | | | | [place] [address] | | + + + + + | Ab Romykia | ECON | Unknown | | + + + + + Care Team Providers + +------+ + | Care Bobtail Driver Name | Role | Phone | + [...] Description | +--------+--------+ + + + | 02/09/ | Refill | [facility] | Pj Abdi, | Medication Refill | | 2016 | | [facility] | [address] | | | | | [address] | [place] | | | | | [place] | [address] | | | | | [address] | | | | | | [phone] | | | +--------+--------+ + + + [...]
--- OUTSIDE RECORDS SUMMARY | ~2019-10-30 | XMS | Encounter Summary ---
Demographics + + + | Address | [address] | | | [place] [address] | + + + | Home Phone [...] | | | | | [place] [address] | | + + + + + | Ab Bunch | ECON | Unknown | | + + + + + Care Team Providers + +------+ + | Care Field Crew Chief Name | Role | Phone | + +------+ + | John Rhodes | PCP | | + +------+ + Encounter Details +--------+ + + + + | Date | Type | Department | Care Team | Description | +--------+ + + + + | 09/17/ | Abstract | [facility] [place] | [facility] | | | 2016 | | PHYSIATRY [address] | | | | [address] | [address] [place], [place] | | | | | [place], [place] | [address] | | | | | [address] | | | | | | [phone] | | | +--------+ + + + [...]
--- OUTSIDE RECORDS SUMMARY | ~2019-10-30 | XMS | Encounter Summary ---
Demographics + + + | Address | [address] | | | [place] [address] | + + + | Home Phone | | + + + | Preferred Language | Unknown | + + + | Marital Status | Single | + + + | Gnosticist Affiliation | 1013 | + + + [...] | | | | | [place] [address] | | + + + + + | Absweta Bunch | ECON | Unknown | | + + + + + Care Team Providers + +------+ + | Care Semi Automatic Sewing Machine Operator Name | Role | Phone [...] | +--------+ + + + + | 03/26/ | Emergency | [facility] | Eric Lozano, | Chronic low back | | 2017 | | [facility] | MD [address] | pain, unspecified | | | | CENTER [address] | [place] | back pain | | | | [place], [place] | [address] | laterality, with | | | | [address] | | sciatica presence | | | | [phone] | | unspecified (Primary | | | | | | Dx); Urinary | | | | | | incontinence, | | | | | | unspecified type | +--------+ + + + + Social [...] + + + | Blood Pressure | 121/79 | 03/26/2017 8:34 PM | | | | | PDT | | + + + + + | Pulse | 102 | 03/26/2017 8:34 PM | | | | | PDT | | + + + + + | Temperature | 36.9 C (98.5 F) | 03/26/2017 8:34 PM | | | | | PDT | | + + + + + | Respiratory Rate | 18 | 03/26/2017 8:34 PM | | | | | PDT | | + + + + + | Oxygen Saturation | 100% | 03/26/2017 8:34 PM | | | | | PDT | | + + + + + | Inhaled Oxygen | - | - | | | Concentration | | | | + + + + + | Weight | 59 kg (130 lb) | 03/26/2017 8:34 PM | | | | | PDT | | + + + + + | Height | 165.1 cm (5' 5") | 03/26/2017 8:34 PM | | | | | PDT | | + + + + + | Body Mass Index | 21.63 | 03/26/2017 8:34 PM | | | | | PDT | | + + + + + documented in this encounter Discharge Instructions Instructions Eric Lozano MD - 03/26/2017Follow-up with primary care provider Follow-up with urology clinic AttachmentsThe following attachments cannot be sent through Care Everywhere.Back Pain, Reli eving ([place])Urinary Incontinence, Female (Adult) ([place])documented in this encounter Medications at Time of [...] INFORMATION | CELSO | Routin | | 03/26/2017 8:32 PM | | EXCHANGE | | e | | PDT | + +------+--------+ + + documented as of this encounter Visit Diagnoses + + | Diagnosis | + + | Chronic low back pain, unspecified back pain laterality, with sciatica presence | | unspecified - Primary | + + | Urinary incontinence, unspecified type | + + documented in this encounter
--- OUTSIDE RECORDS SUMMARY | ~2019-10-30 | XMS | Encounter Summary ---
Demographics + + + | Address | [address] | | | [place] [address] | + + + | Home Phone | | + + + | Preferred Language | Unknown | + + + | Marital Status | Single | + + + | Congregation Affiliation | 1013 | + + + | Race | Unknown | + + + | Ethnic Group | Unknown | + + + Author + + + | Author | [facility] | | | and Johnana | + + + | Organization | [facility] | | | [...] | | | | | [place] [address] | | + + + + + [...] + + | Closed | Specialty | Plastic | Diagnoses | Vicente, | Nina, | | | Services | Surgery | Strain of | Jill | Ed | | | Required | | tendon of | ANGEL Acosta | MD Mekhi | | | | | right wrist | [address] [facility] | [address] | | | | | Work | [address] | [place], | | | | | related | [place] | [place] [address] | | | | | injury | [place], [place] | Phone: | | | | | | [address] | [phone] | | | | | | Phone: | Fax: | | | | | | [phone] | [phone] | | | | | | Fax: | | | | | | | [phone] | | +--------+ + + + + + Evaluate & Treat (Routine) +--------+ + + + + + | Status | Reason | Specialty | Diagnoses / | Referred By | Referred To | | | | | Procedures | Contact | Contact | +--------+ + + + + + | Closed | Specialty | Physical | Diagnoses | Vicente, | | | | Services | Therapy / | Strain of | Jill | Matias, | | | Required | Rehabilitatio | tendon of | ANGEL Acosta | Ta Kapoor PT | | | | n | right wrist | [address] | | | | | Work | [address] | [address] [place] | | | | | related | [place] | [place] | | | | | injury | [place], [place] | [address] Phone: | | | | | Procedures | [address] | [phone] | | | | | L&I | Phone: | Fax: | | | | | | [phone] | [phone] | | | | | | Fax: | | | | | | | [phone] | | +--------+ + + + + + Reason for Visit + + + | Reason | Comments | + + + | Shoulder Injury | | + + + Encounter Details +--------+---------+ + + + | Date | Type | Department | Care Team | Description | +--------+---------+ + + + | 06/26/ | Office | [facility] [place] | Jill Zhang | Strain of left | | 2020 | Visit | OCCUPATIONAL HEALTH | ANGEL Acosta [address] | shoulder, subsequent | | | | [facility] [address] | encounter (Primary | | | | [address] [place] | [place] | Dx); Muscle spasm of | | | | [place] | [address] | back; Muscle spasms | | | | [address] | | of neck; Strain of | | | | [phone] | | tendon of right | | | | | | wrist; Work related | | | | | | injury | +--------+---------+ + + + Social History [...] + + + | Blood Pressure | 137/77 | 06/26/2019 10:52 AM | | | | | PST | | + + + + + | Pulse | 89 | 06/26/2019 10:52 AM | | | | | PST | | + + + + + | Temperature | 36.7 C (98.1 F) | 06/26/2019 10:52 AM | | | | | PST [...] + + | Weight | 55.3 kg (122 lb) | 06/26/2019 10:52 AM | | | | | PST | | + + + + + | Height | 162.6 cm (5' 4") | 06/26/2019 10:52 AM | | | | | PST | | + + + + + | Body Mass Index | 20.94 | 06/26/2019 10:52 AM | | | | | PST | | + + + + + documented in this encounter Progress Notes Jill Zhang, ANGEL - 06/26/2019 11:00 AM PSTFormatting of this note might be diffe rent from the original. Occupational Health [address] [place] [address] Name: Donna Camarena Date of Injury: 06/04/2019 : 1995 Claim #: [id number] Date of Visit: 06/26/2019 Guarantor: [employer] Medical Record: [id number] Primary Care Physician: Hilton No NEW PATIENT ASSESSMENT and PLAN 1. Strain of left shoulder, subsequent encounter 2. Muscle spasm of back 3. Muscle spasms of neck 4. Strain of tendon of right wrist 5. Work related injury Donna presents today with her young son for scheduled follow-up for a new work-related in [facility]. Plan: General Progress: Progress toward functional goals is fair Structured Therapy: Physical Therapy (PT) referral placed Surgery: Not indicated Medications: Methocarbamol, naproxen Diagnostic Studies: XRAY: X-ray of right wrist and left shoulder today Consultations: Yes, referral placed to Dr. Wood for consideration of wrist injection MMI has not been reached Additional Notes: 1. Donna's mechanism of injury involved catching a heavy, deal dough hook as it was slidi ng off a shelf with both arms, the left taking most of the weight. This resulted in a right wrist strain and left shoulder strain. Objective findings on exam, though she is hypersens itive to touch, are consistent with these diagnoses. 2. Treatment so far has included 3 visits to urgent care. She received a steroid injectio n at her first visit which provided no benefit. She has been taking naproxen and more recen tly methocarbamol. She continues to have significant pain with movement of the wrist or adriana ulder. 3. She was placed on modified duty but was unable to work on the [employer] line due to the r epetitive reaching so her employer sent her home. I am recommending medical job restriction s which include use of the right hand is limited by splint, no lifting or reaching above adriana ulder height with the left arm, avoid frequent reaching with the left arm, and no lifting mo re than 10 pounds. 4. I have sent a referral to [facility] in [place] as this is the [facility] clinic to her home in [place]. I would like to see her attend sessions twice weekly f or 6 weeks. 5. I have sent a refill of the methocarbamol as this has been somewhat helpful. She can a lso continue taking the naproxen twice daily with food. She is on Suboxone treatment for op ioid dependency. 6. I did put in orders for left shoulder and right wrist x-rays today and we will call her if any of those results are abnormal. She can continue wearing the splint to the right wri st for comfort. 7. I will follow-up with her in 2 weeks or sooner if needed for acute worsening of symptom s. She verbalizes understanding and agreement of the above plan. My evaluation and diagnosis are consistent with the patient's description of the mechanism of injury on a more probable than not basis. Needed from director of claims: 1. 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 female who presents with work related injury. 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 On the day of injury she was cleaning some steel dough troughs that are very heavy. She was squatting down scrubbing the side of wine when the tray started slipping off the shelf i t was resting on. She stood up and caught the tray with both arms with the left taking more of the weight. She reports feeling the left shoulder "give out". She did not have pain in the right wrist initially but when she woke up the next day she had a painful, sharp, stabb ing and achy pain in the radial side of the wrist. She was initially evaluated in urgent care on 06/05/2019 where she was given a steroid injec tion in the left shoulder. They had discussed a steroid injection in the right wrist but jaida moss would need to be referred out for this. He is was diagnosed with thumb tendinitis and ten dinitis of the left shoulder. She was placed on modified duty. She was given a thumb spica splint. She was prescribed ibuprofen. She was advised to follow-up in 2 weeks. She returned to urgent care on 06/08/2019 with continued pain to the left shoulder radiating down along the left trapezius border. She was given an IM injection of Toradol. She was a dvised to continue the Tylenol and ibuprofen as needed. She was given some home exercises. She was advised to follow-up with occupational medicine as scheduled on 06/20/2019. She was again given job modifications. She returned to urgent care on 06/13/2019 with increased pain to the right thumb and left sh oulder. At this point she reports radiation of pain down the left arm and muscle spasms in the left posterior shoulder and upper back radiating up into the neck. She was prescribed m ethocarbamol for the muscle spasms. She was put on modified duty and minded to continue wea ring the thumb spica splint. She was advised to follow-up with occupational medicine as servando richter on 06/20/2019. She was a no-show for her scheduled occupational medicine appointment on 06/20/2019. Today Donna reports that she continues to have pain to the right wrist. She describes it as sharp, stabbing, and aching along the radial side of the wrist. For treatment she has b een using a splint, ice, and naproxen. She feels that nothing is really helping. She has b een wearing the splint at all times except for when she is showering. She reports that when she does remove the splint she has increased pain in the radial wrist. She does have a his tory of right wrist tendinitis in 2007 but leading up to this most recent incident was not e xperiencing any pain in the right wrist. In regards to the left shoulder she rates this is a 7/10 and describes it as sharp and stab krish in the anterior and lateral shoulder as well as medial to the scapula. She reports dylon t any movement of the arm causes increased pain. She reports numbness and tingling down the left arm to the hand. She reports a sensation of muscle tension to the upper back and radi ating up into the neck. She does have a history of neck DDD and fibromyalgia. She takes Sood boxone for opioid dependence. She denies any previous injuries to the left shoulder. REVIEW OF SYSTEMS The following systems were reviewed. Check HPI for additional details. Review of Systems Constitutional: Negative for chills, fever and malaise/fatigue. Musculoskeletal: Positive for joint pain, myalgias and neck pain. Negative for back pain. Skin: Negative. Neurological: Positive for tingling and sensory change. Negative for focal weakness and wea kness. All other systems reviewed and are negative. PAST FAMILY MEDICAL SOCIAL HISTORY Patient's medications, allergies, past medical, surgical, social and family histories were reviewed and updated as appropriate. Medications: she has a current medication list which includes the following prescription(s ): gabapentin, methocarbamol, multiple vitamins-minerals, naproxen, ondansetron, and suboxon e. Medical: has a past medical history of Anxiety, Chronic low back pain (09/21/2016), DDD (de generative disc disease), lumbar (09/21/2016), Depression, Environmental allergies, Facet arth ritis of lumbar region (09/21/2016), PONV (postoperative nausea and vomiting), Scoliosis, and Wears dentures. Not considered shaina to LNI claim. Surgical: has a past surgical history that includes Appendectomy (2011); ovarian cyst rem oval (2011); laparoscopy (N/A, 06/16/2015); Salpingo-oophorectomy (Right, 03/11/2016); ovaria n cyst removal (2013); and mina and bso (Right, 02/2016). Not considered shaina to LNI ledy fox. Family: Not considered shaina to LNI claim. Social: She reports that she has been smoking cigarettes. She started smoking about 9 yea rs ago. She has a 14.00 pack-year smoking history. She has never used smokeless tobacco. She reports current alcohol use. She reports that she does not use drugs. ALLERGIES Allergies Allergen Reactions Dimetapp Cold-Allergy Hives and Rash Meloxicam Hives, Anxiety and Rash Nortriptyline Other (See Comments) INEFFECTIVE PHYSICAL EXAM VITAL SIGNS: BP 137/77 | Pulse 89 | Temp 36.7 C (98.1 F) (Temporal) | Ht 1.626 m (5' 4") | Wt 55.3 kg (122 lb) | BMI 20.94 kg/m Physical Exam Constitutional: General: She is not in acute distress. Appearance: Normal appearance. She is well-developed. Neck: Musculoskeletal: Normal range of motion. Muscular tenderness (Left-sided from the base o f the skull down into the mid trap) present. Pulmonary: Effort: Pulmonary effort is normal. Musculoskeletal: Left shoulder: She exhibits decreased range of motion (Abduction 90 degrees, flexion 90 degrees, external rotation normal, internal rotation to L1), tenderness (Hypersensitive to t ouch to the posterior and anterior shoulder. No tenderness to the biceps or the lateral adriana ulder.), pain (At end range of motion. Special testing of the shoulder provokes pain to the posterior shoulder/mid trap only.), spasm (Left neck, upper and mid trapezius) and decrease d strength (Due to pain or fear of pain, I do not believe this is true weakness of the rotat or cuff). She exhibits no bony tenderness, no swelling and normal pulse. Right wrist: She exhibits tenderness (Tender to palpation along the thumb extensor tendo n from the base of the thumb approximately 4 cm up the forearm. Positive Jerad's.). S he exhibits normal range of motion, no bony tenderness, no swelling and no deformity. Skin: General: Skin is warm and dry. Capillary Refill: Capillary refill takes less than 2 seconds. Neurological: Mental Status: She is alert and oriented to person, place, and time. Psychiatric: Behavior: Behavior normal. Behavior is cooperative. Data and/or chart notes reviewed from Urgent care on 06/05/2019, 06/08/2019, and 06/13/2019 as summarized in HPI. Imaging: X-ray of right wrist and left shoulder completed today EMPLOYMENT RTW - May return to work with restrictions. See APF. RESTRICTIONS TO RECOVERY Duration of work restrictions: temporary Anticipated return to full duty: 6 weeks Pre-existing or concurrent conditions that may delay recovery: include chronic pain, cervic al DDD, fibromyalgia Need for xywrfd-vx-symx assistance? No COMMUNICATIONS AND FORMS: MJR completed Job analysis completed PATIENT PRINTED INSTRUCTIONS No notes on file No follow-ups on file. Portions of this report were transcribed using voice recognition software. Every effort wa s made to ensure accuracy; however, inadvertent wrong-word sound-alike substitutions m ay have occurred due to the inherent limitations of voice recognition software. Electronically signed by: ANGEL Moulton, 06/26/2019 11:41 AM documented in this encounter Plan of Treatment + + +--------+ + + | Name | Type | Priori | Associated Diagnoses | Order Schedule | | | | ty | | | + + +--------+ + + | Physical Therapy - | Outpatient | Routin | Strain of left | Ordered: 06/26/2019 | | Ambulatory Referral | Referral | e | shoulder, subsequent | | | | | | encounter Muscle | | | | | | spasm of back | | | | | | Muscle spasms of | | | | | | neck Strain of | | | | | | tendon of right | | | | | | wrist Work related | | | | | | injury | | + + +--------+ + + | Referral to [facility] | Outpatient | Routin | Strain of tendon | Ordered: 06/26/2019 | | [place] [facility] | Referral | e | of right wrist Work | | | | | | related injury | | + + +--------+ + + documented as of this encounter Results XR Wrist Right 2 [...] | Procedure Note | + + | Honorio Brown Results In - 06/26/2019 2:24 PM PST [...] Note | + + | Brown Olmedo Results In - 06/26/2019 2:23 PM PST [...] encounter - Primary | + + | Muscle spasm of back Other symptoms referable to back | + + | Muscle spasms of neck Spasm of muscle | + + | Strain of tendon of right wrist | + + | Work related injury Injury, other and unspecified, unspecified site | + + documented in this encounter
--- OUTSIDE RECORDS SUMMARY | ~2019-10-30 | XMS | Encounter Summary ---
Demographics + + + | Address | [address] | | | [place] [address] | + + + | Home Phone | | + + + | Preferred Language | Unknown | + + + | Marital Status | Single | + + + | Hinduism Affiliation | 1013 | + + + [...] | | | | | [place] [address] | | + + + + + | Ab Romykia | ECON | Unknown | | + + + + + Care Team Providers + +------+ + | Care Database Analyst Name | Role | Phone | + +------+ + | No Physician | PCP | Unavailable | + +------+ + Encounter Details +--------+ + + + + | Date | Type | Department | Care Team | Description | +--------+ + + + + | 01/26/ | Hospital | [facility] | Marcy Naik | Pain | | 2015 | Encounter | [facility] | DO [address] | | | | | [address] [place] | [address] [place], [place] | | | | | [place], [place] | [address] | | | | | [address] | | | | | | [phone] | | | +--------+ + + + [...] | | Take 1 tablet by | 16 | 0 | 01/27/20 | | | acetaminophen-codein | mouth every 4 hours | tablet | | 15 | 6 | | e (TYLENOL/CODEINE | as needed. | | | | | | #3) 300-30 MG per | | | | | | | tablet [...] + + + +---------+ + + | meloxicam (MOBIC) | Take 1 tablet by | 30 | 0 | 01/27/20 | | | 7.5 mg tablet | mouth Daily as | tablet | | 15 | 5 | | | needed for Pain. | | | [...] + | XR WRIST RIGHT 3 + | Routin | 01/26/2015 | Pain | Results for this | | VW | e | 1:54 PM | | procedure are in the | | | | PDT | | results section. | + +--------+ + + + documented in this encounter Results XR Wrist Right 3 [...] | | Dictated and Signed by: Yovani pUton MD | | Electronically signed: 01/26/2015 2:46 PM | + + + + + + + | Performing | Address | City/State/Zipcode | Phone Number | | Organization | | | | + + + + + | [facility] | [address] | [place] | [phone] | | [facility] | | [address] | | | - IMAGING | | | | + + + + + documented in this encounter Visit Diagnoses + + | Diagnosis | + + | Pain Generalized pain | + + documented in this encounter"
--- OUTSIDE RECORDS SUMMARY | ~2019-10-30 | XMS | Encounter Summary ---
Demographics + + + | Address | [address] | | | [place] [address] | + + + | Home Phone [...] | | | | | [place] [address] | | + + + + + | Ab Romykia | ECON | Unknown | | + + + + + Care Team Providers + +------+ + | Care Form Setter Steel Pan Forms Name | Role | Phone | + +------+ + | No Physician | PCP | Unavailable | + +------+ + Reason for Visit + + + | Reason | Comments | + + + | Follow-up | exam 4/ Right wrist DOI: 01/25/15/ needs note to return to work | + + + Encounter Details +--------+---------+ + + + | Date | Type | Department | Care Team | Description | +--------+---------+ + + + | 02/02/ | Office | [facility] | Marcy Naik | Strain of right | | 2015 | Visit | CARE [address] | DO Saundra Bass | wrist, subsequent | | | | [place], [place] | [place], [place] | encounter--iimproved | | | | [address] | [address] | (Primary Dx) | | | | [phone] | | | +--------+---------+ + + + [...] + | Blood Pressure | 100/60 | 02/02/2015 12:23 PM | | | | | PDT | | + + + + + | Pulse | 98 | 02/02/2015 12:23 PM | | | | | PDT | | + + + + + | Temperature | 37.1 C (98.8 F) | 02/02/2015 12:23 PM | | | | | PDT | | + + + + + | Respiratory Rate | 12 | 02/02/2015 12:23 PM | | | | | PDT | | + + + + + | Oxygen Saturation | 99% | 02/02/2015 12:23 PM | | | | | PDT | | + + + + + | Inhaled Oxygen | - | - | | | Concentration | | | | + + + + + | Weight | 56.2 kg (124 lb) | 02/02/2015 12:23 PM | | | | | PDT | | + + + + + | Height | 163.8 cm (5' 4.5") | 02/02/2015 12:23 PM | | | | | PDT | | + + + + + | Body Mass Index | 20.96 | 02/02/2015 12:23 PM | | | | | PDT | | + + + + + documented in this encounter Progress Notes Marcy Naik MD - 02/03/2015 7:23 AM PDTFormatting of this note might be diffe rent from the original. Subjective: Patient ID: Donna Camarena is a 19 y.o. female. HPI Comments: Pt is here wanting to have all work note that states that she is off restrict ions. Patient was seen here about a week ago for a right wrist sprain and she was placed in to a right wrist splint. She has been on restrictions and has been icing and elevating the wrist as much as possible. She is also tried some strengthening exercises for her wrist. S he states that now her symptoms are completely gone and that she has full range of motion to the wrist without any difficulties whatsoever Patient's medications, allergies, past medical, surgical, social and family histories were reviewed and updated as appropriate. Review of Systems All other systems reviewed and are negative. Objective: Physical Exam Constitutional: She is oriented to person, place, and time. She appears well-developed and well-nourished. Musculoskeletal: Right wrist: She exhibits normal range of motion, no tenderness, no bony tenderness, n o swelling, no effusion and no deformity. Neurological: She is alert and oriented to person, place, and time. Skin: Skin is warm and dry. Nursing note and vitals reviewed. Assessment: Right wrist sprain-improved Plan: Pt was sen and examined and has normal wrist exam. I thin its fine for her to resume her n ormal activities and restrictions were lifted. She should return if symptoms worsen or recu r documented in this encounter Plan of Treatment Not on filedocumented as of this encounter Visit Diagnoses + + | Diagnosis | + + | Strain of right wrist, subsequent encounter--iimproved - Primary | + + documented in this encounter
--- OUTSIDE RECORDS SUMMARY | ~2019-10-30 | XMS | Encounter Summary ---
Demographics + + + | Address | [address] | | | [place] [address] | + + + | Home Phone [...] | | | | | [place] [address] | | + + + + + | Ab Bunch | ECON | Unknown | | + + + + + Care Team Providers + +------+ + | Care Horticultural Specialty Grower Inside Name | Role | Phone | + [...] | | | right wrist | [address] [facility] | [address] | | | | | Work | [address] | [place], | | | | | related | [place] | [place] [address] | | | | | injury | [place], [place] | Phone: | | | | | | [address] | [phone] | | | | | | Phone: | Fax: | | | | | | [phone] | [phone] | | | | | | Fax: | | | | | | | [phone] | | +--------+ + + + + [...] | Therapy / | Strain of | Jlil | Matias, | | | Required | [...] | | injury | [place], [place] | [address] Phone: | | | | | Procedures | [address] | [phone] | | | | | L&I | Phone: | Fax: | | | | | | [phone] | [phone] | | | | | | Fax: | | | | | | | [phone] | | +--------+ + + + + [...] | | | | [place] | [address] | back; Muscle spasms | | | | [address] | | of neck; Strain of | | | | [phone] | | tendon of right | | [...] Health [address] [place] [address] Name: Donna Camarena Date of Injury: 06/04/2019 : 1995 Claim #: [id number] Date of Visit: 06/26/2019 Guarantor: [employer] Medical Record: [id number] Primary Care Physician: Hilton No NEW PATIENT ASSESSMENT and PLAN 1. Strain of left shoulder, subsequent encounter 2. Muscle spasm of back 3. Muscle spasms of neck 4. Strain of tendon of right wrist 5. Work related injury Donna presents today with her young son for scheduled follow-up for a new work-related in [facility]. Plan: General Progress: Progress toward functional [...] but was unable to work on the [employer] line due to the r epetitive reaching [...] 4. I have sent a referral to [facility] in [place] as this is the [facility] clinic to her home in [place]. I would like to see her attend [...] more probable than not basis. Needed from workers compensation claims examiner: 1. 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 On [...] pain, cervic al DDD, fibromyalgia Need for kowrfd-cj-qock assistance? No COMMUNICATIONS AND FORMS: MJR completed [...] | | | |Dictated and Signed by: rBad Cline MD | | Electronically signed: 06/26/2019 [...]
--- OUTSIDE RECORDS SUMMARY | ~2019-10-30 | XMS | Encounter Summary ---
Demographics + + + | Address | [address] | | | [place] [address] | + + + | Home Phone [...] Author + + + | Author | [facility] | | | and Johnana | + + + | Organization | [facility] | | [...] | | | | | [place] [address] | | + + + + + | Ab Romykia | ECON | Unknown | | + + + + + Care Team Providers + +------+ + | Care Acoustical Engineer Name | Role | Phone | [...] | +--------+ + + + + | 07/20/ | Telephone | [facility] | Alma Delia Meeks | VIPIN Follow-up | | 2018 | | [facility] [place] | [place] | | | | | [address] | | | | | | [place] | | | | | | [address] | | | | | | [phone] | | | +--------+ + + + [...]
--- OUTSIDE RECORDS SUMMARY | ~2019-10-30 | XMS | Encounter Summary ---
Demographics + + + | Address | [address] | | | [place] [address] | + + + | Home Phone [...] | | | | | [place] [address] | | + + + + + | Ab Romykia | ECON | Unknown | | + + + + + Care Team Providers + +------+ + | Care Pipeline Executive Name | Role | Phone | + [...] + | 09/08/ | Refill | [facility] | Pj Abdi, | Medication Refill | | 2018 | | [facility] [place] | [address] | | | | | [address] | [place] | | | | | [place] | [address] | | | | | [address] | | | | | | [phone] | | | +--------+--------+ + + + [...]
--- OUTSIDE RECORDS SUMMARY | ~2019-10-30 | XMS | Encounter Summary ---
Demographics + + + | Address | [address] | | | [place] [address] | + + + | Home Phone [...] | | | | | [place] [address] | | + + + + + | Ab Bunch | ECON | Unknown | | + + + + + Care Team Providers + +------+ + | Care Zinc Plater Name | Role | Phone | + +------+ + | Pj Abdi MD | PCP | | + +------+ + Encounter Details +--------+ + + + + | Date | Type | Department | Care Team | Description | +--------+ + + + + | 09/26/ | Hospital | [facility] | Pj Abdi, | Acute pain of left | | 2019 | Encounter | MED CTR XRAY [address] | [address] | knee | | | | [place] | [place], [place] | | | | | [place] [address] | [id number] | | | | | [phone] | | | +--------+ + + + [...] | TAKE TWO CAPSULES | 180 | 0 | 09/12/19 | | | (NEURONTIN) 300 mg | THREE TIMES A DAY | capsule | | 19 | 9 | | capsule | | | | | | + + + +---------+ + + | naproxen | TAKE ONE TABLET | 60 | 0 | 09/12/19 | | | (NAPROSYN) 500 mg | TWICE A DAY WITH | tablet | | 19 | 9 | | tablet | BREAKFAST AND DINNER | | | | | + + + +---------+ + + | NARCAN 4 MG/0.1ML | | | 0 | 04/12/20 | | | | | | | 18 | 9 | + + + +---------+ + + documented as of this encounter Plan of Treatment Not on filedocumented as of this encounter Procedures + +--------+ + + + | Procedure Name | Priori | Date/Time | Associated Diagnosis | Comments | | | ty | | | | + +--------+ + + + | XR KNEE LEFT 1 - 2 | Routin | 09/26/2018 | Acute pain of left | Results for this | | VW | e | 11:01 AM | knee | procedure are in the | | | | PDT | | results section. | + +--------+ + + + documented in this encounter Results XR Knee Left 1 - 2 Vw (09/26/2018 11:01 AM PDT) + + | Specimen | + + | | + + + + + | Narrative | Performed At | + + + | EXAM:XR KNEE LEFT 1 - 2 VW CLINICAL HISTORY: left knee pain on | [facility] | | proximal patellar tendon COMPARISON: None. FINDINGS: Frontal | | | and lateral views. Normal mineralization. No acute fracture. No | | | current dislocation. No bone erosion or destruction. The soft | | | tissues are unremarkable. There are no radiopaque foreign bodies. | | | IMPRESSION - Unremarkable left knee radiographs. Dictated | | | and Signed by: Nikko Nickerson MD Electronically signed: 09/26/2018 | | | 1:19 PM | | + + + + + | Procedure Note | + + | Honorio, Rad Results In - 09/26/2018 1:22 PM PDT EXAM:XR KNEE LEFT 1 - 2 VW | | | | CLINICAL HISTORY: left knee pain on proximal patellar tendon | | | | COMPARISON: None. | | | | FINDINGS: Frontal and lateral views. Normal mineralization. No acute fracture. | | No current dislocation. No bone erosion or destruction. The soft tissues are | | unremarkable. There are no radiopaque foreign bodies. | | | | IMPRESSION - | | | | Unremarkable left knee radiographs. | | | | Dictated and Signed by: Nikko Nickerson MD | | Electronically signed: 09/26/2018 1:19 PM | + + + +---------+ + + | Performing | Address | City/State/Zipcode | Phone Number | | Organization | | | | + +---------+ + + | [facility] | | | | + +---------+ + + documented in this encounter Visit Diagnoses + + | Diagnosis | + + | Acute pain of left knee | + + documented in this encounter"
--- OUTSIDE RECORDS SUMMARY | ~2019-10-30 | XMS | Encounter Summary ---
Demographics + + + | Address | [address] | | | [place] [address] | + + + | Home Phone [...] | | | | | [place] [address] | | + + + + + | Ab Romykia | ECON | Unknown | | + + + + + Care Team Providers + +------+ + | Care Ophthalmic Tech Name | Role | Phone | [...] Description | +--------+--------+ + + + | 08/22/ | Refill | [facility] | Pj Abdi, | Medication Refill | | 2020 | | [facility] [place] | [address] | | | | | [address] | [place] | | | | | [place] | [id number] | | | | | [address] | | | | | | [phone] | | | +--------+--------+ + + + [...] | Diagnosis | + + | Fibromyalgia Mylagia and myositis, unspecified | + + | Patellofemoral pain syndrome of both knees | + + documented in this encounter"
--- OUTSIDE RECORDS SUMMARY | ~2019-10-30 | XMS | Encounter Summary ---
Demographics + + + | Address | [address] | | | [place] [address] | + + + | Home Phone | | + + + | Preferred Language | Unknown | + + + | Marital Status | Single | + + + | Jewish Affiliation | 1013 | + + + | Race | Unknown | + + + | Ethnic Group | Unknown | + + + Author + + + | Author | [facility] | | | and Johnana | + + + | Organization | [facility] | | [...] | | | | | [place] [address] | | + + + + + | Ab Romykia | ECON | Unknown | | + + + + + Care Team Providers + +------+ + | Care Customer Consultant Name | Role | Phone | + [...] Description | +--------+--------+ + + + | 01/04/ | Refill | [facility] | Pj Abdi, | Medication Refill | | 2016 | | MEDIC[facility] [place] | [address] | | | | | [address] | [place] | | | | | [place] | [address] | | | | | [address] | | | | | | [phone] | | | +--------+--------+ + + + [...] | intervertebral disc | + + | Chronic right-sided low back pain with right-sided sciatica | + + | Facet arthritis of lumbar region Lumbosacral spondylosis without myelopathy | + + | Chronic pain syndrome | + + documented in this encounter"
--- OUTSIDE RECORDS SUMMARY | ~2019-10-30 | XMS | Encounter Summary ---
Demographics + + + | Address | [address] | | | [place] [address] | + + + | Home Phone [...] | | | | | [place] [address] | | + + + + + | Ab Romykia | ECON | Unknown | | + + + + + Care Team Providers + +------+ + | Care Transportation Project Manager Name | Role | Phone | + +------+ + | Pj Abdi MD | PCP | | + +------+ + Reason for Visit + + + | Reason | Comments | + + + | Back Pain | | + + + | Enuresis | | + + + Encounter Details +--------+---------+ + + + | Date | Type | Department | Care Team | Description | +--------+---------+ + + + | 03/29/ | Office | [facility] | Pj Abdi, | Acute exacerbation | | 2017 | Visit | [facility] [place] | [address] | of chronic low back | | | | [address] | [place] | pain (Primary Dx); | | | | [place] | [address] | Chronic pain | | | | [address] | | syndrome; Urinary | | | | [phone] | | incontinence, | | | | | | unspecified type; | | | | | | Anxiety with | | | | | | depression; Back | | | | | | pain, unspecified | | | | | | back location, | | | | | | unspecified back | | | | | | pain laterality, | | | | | | unspecified | | | | | | chronicity; Whiplash | | | | | | injury, acute, | | | | | | initial encounter | +--------+---------+ + + + Social History [...] + + + | Blood Pressure | 114/76 | 03/29/2017 2:37 PM | | | | | PST | | + + + + + | Pulse | 107 | 03/29/2017 2:37 PM | | | | | PST | | + + + + + | Temperature | 36.6 C (97.9 F) | 03/29/2017 2:37 PM | | | | | PST | | + + + + + | Respiratory Rate | 16 | 03/29/2017 2:37 PM | | | | | PST | | + + + + + | Oxygen Saturation | 99% | 03/29/2017 2:37 PM | | | | | PST | | + + + + + | Inhaled Oxygen | - | - | | | Concentration | | | | + + + + + | Weight | 60 kg (132 lb 4.4 | 03/29/2017 2:37 PM | | | | oz) | PST | | + + + + + | Height | 165.1 cm (5' 5") | 03/29/2017 2:37 PM | | | | | PST | | + + + + + | Body Mass Index | 22.01 | 03/29/2017 2:37 PM | | | | | PST | | + + + + + documented in this encounter Progress Notes Pj Abdi MD - 03/29/2017 2:30 PM PSTFormatting of this note might be different fro m the original. Donna Camarena is a 21 y.o. female Chief Complaint: Back Pain and Enuresis HPI Back Pain Patient has been experiencing back pain since afternoon which she states has gradu ally been getting worse. She was seen in ED last Tuesday and Tuesday. ED physician recommen ded she go see Urology. Patient has been taking Hydrocodone, gabapentin, tizanidine, tylenol ,, aspirin, and naproxen, all which seem to not give much relief. Pain described as being 8 /10. Patient has been having urinary incontinence about 5 times a day since the back pain s tarted . Patient has MRI done last weekend in hospital. Note as follows: IMPRESSION- 1. No acute abnormal findings. No evidence of a cord lesion or abnormal cord signal. Stable MRI since prior examination dated 08/08/2016. 2. Six non rib-bearing lumbar type vertebra. Transitional vertebra with pseudoarthrosis on the right, as previously noted. Apparent mild to moderate left neuroforaminal narrowing at L6-S1. 3. Stable mild posterior disc bulge, eccentric to the right, at L5-L6. Stable appearing mild bilateral neural foraminal narrowing. There was no injury to the back at the start of this pain flare. PREVENTIVE CARE/PRIOR VISITS 1. Any recommendations from Health Maintenance: Pap Health Maintenance Due Topic Date Due CERVICAL CANCER SCREENING (PAP EVERY 3 YEARS 21-64 ) 2014 Vaccine: Influenza (1) 01/21/2017 Preventative Services TOPIC LAST DONE NEXT DUE Vaccine: Influenza 01/21/2017 Cervical Cancer Screening (Pap Every 3 Years - ) 2014 Vaccine: Dtap/Tdap/Td 08/23/2013 08/24/2023 Vaccine: Hpv 11/30/2016 Vaccine: Pneumococcal 19-64 (Ppsv23 Only) Medium Risk 11/02/2016 2. Any immunizations necessary: Flu 3. Has patient been involved in medical events/hospitalizations since their last visit: at ED for back pain Allergies Allergen Reactions Dimetapp Cold-Allergy Hives and [...] has been changed since signin Order [facility] [place] HYDROcodone-acetaminophen (NORCO) 5-325 mg per tablet Starting on 04/09/2017. Take 1 table t by mouth every 6 hours as needed for Pain (for severe break through pain). Number of times this order has been changed since signin Order [facility] [place] HYDROcodone-acetaminophen (NORCO) 5-325 mg per tablet (Taking/Discontinued) Take 1 tablet by mouth every 6 hours as needed for Pain (for severe break through pain). Number of times this order has been changed since signin Order [facility] [place] hydrOXYzine hydrochloride (ATARAX) 25 mg tablet (Taking) TAKE TWO TABLETS EVERY SIX HOURS NEEDED FOR ANXIETY OR ITCHING Number of times this order has been changed since signin Order [facility] [place] naproxen (NAPROSYN) 500 mg tablet (Taking) TAKE ONE TABLET TWICE DAILY WITH BREAKFAST AND DINNER Number of times this order has been changed since signin Order [facility] [place] ondansetron (ZOFRAN ODT) 4 mg disintegrating tablet (Taking) DISSOLVE ONE TABLET UNDER TH E TONGUE EVERY EIGHT HOURS NEEDED FOR NAUSEA Number of times this order has been changed since signin Order [facility] [place] propranolol (INDERAL) 10 mg tablet (Taking) Take 1 tablet by mouth 2 times daily. Number of times this order has been changed since signin Order [facility] [place] tiZANidine (ZANAFLEX) 4 mg tablet (Taking) Take 1 tablet by mouth every 6 hours as needed . Number of times this order has been changed since signin Order [facility] [place] tiZANidine (ZANAFLEX) 4 mg tablet (Taking/Discontinued) Take 1 tablet by mouth every 6 ho urs as needed. Number of times this order has been changed since signin Order [facility] [place] traZODone (DESYREL) 100 mg tablet (Taking) Take 0.5-1 tablet nightly as needed for sleep Number of times this order has been changed since signin Order [facility] [place] venlafaxine (EFFEXOR XR) 150 mg 24 hr capsule (Taking) Take 1 capsule by mouth Daily. Number of times this order has been changed since signin Order [facility] [place] venlafaxine (EFFEXOR XR) 75 mg 24 hr capsule (Taking/Discontinued) Take 1 capsule by mout h Daily. Number of times this order has been changed since signin Order [facility] [place] Past Medical History She has a past [...] 2 Years of education: G.E.D. 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 Gastrointestinal: Negative for abdominal pain, blood in stool, constipation, diarrhea, naus ea and vomiting. Genitourinary: Positive for enuresis. Negative for difficulty urinating and frequency. Musculoskeletal: Positive for back pain. Negative for joint swelling and neck pain. Objective: Vitals: 03/29/17 1437 BP: 114/76 Pulse: 107 Resp: 16 Temp: 36.6 C (97.9 F) TempSrc: Temporal SpO2: 99% Weight: 60 kg (132 lb 4.4 oz) Height: 1.651 m (5' 5") Physical Exam Constitutional: She is oriented to person, place, and time. She appears well-developed and well-nourished. No distress. Appropriately dressed and groomed Patient appears uncomfortable HENT: Head: Normocephalic and atraumatic. Eyes: Conjunctivae are normal. Musculoskeletal: She exhibits no edema. Muscle spasm noted on the right side low back. Patellar reflexes are equally bilaterally. Leg strength exam is mildly limited by pain. Fle xion of the hip, flexion and extension at the knee and hip are all intact and 5/5. This took much encouragement to get the full strength testing completed. Neurological: She is alert and oriented to person, place, and time. Skin: Skin is warm and dry. Psychiatric: She has a normal mood and affect. Her behavior is normal. Nursing note and vitals reviewed. Ortho Exam Results for orders placed or performed during the hospital encounter of 03/25/17 Urinalysis, Microscopic Only, with Culture if Indicated Result Value Ref Range WBC UA 2-5 (A) 0 - 2 /HPF RBC UA 0-2 0 - 2 /HPF SQUAMOUS EPITHELIAL UA >100 (A) 0 - 2 /LPF BACTERIA UA 1+ (A) Negative /HPF MUCUS UA Present (A) Negative /LPF POCT Urinalysis Dipstick Automated Result Value Ref Range Color, UA, POC Yellow Yellow, Light Yellow Clarity, UA, POC Clear Glucose, UA, POC Negative Negative Bilirubin, UA, POC Negative Negative Ketones, UA, POC Negative Negative, 100 mg/dL Specific [place], UA, POC 1.025 1.001 - 1.030 Blood, UA, POC Negative Negative pH, UA, POC 5.5 5.0, 6.0, 7.0, 8.0, 5.5, 6.5, 7.5 Protein, UA, POC Negative Negative Urobilinogen, UA, POC 0.2 0.2, Negative, Normal, < 0.2 mg/dL, 1 mg/dL, < 0.2 E.U./dl, 1.0 E.U./dL, 0.2 mg/dL Nitrite, UA, POC Negative Negative Leukocyte Esterase, UA, POC Negative Negative RED SUB UA ICTOTEST Negative REMARK POCT Test, Urine, QUAL Result Value Ref Range Test, Urine, POC Negative Negative Internal QC Acceptable Acceptable Specific [place], POC 1.010, 1.015, 1.020, 1.025 Lot Number Expiration Date POC Urine today is completely clear. Assessment: 1. Acute exacerbation of chronic low back pain 2. Chronic pain syndrome HYDROcodone-acetaminophen (NORCO) 5-325 mg per tablet 3. Urinary incontinence, unspecified type 4. Anxiety with depression venlafaxine (EFFEXOR XR) 150 mg 24 hr capsule 5. Back pain, unspecified back location, unspecified back pain laterality, unspecified stratigraphy teacher nicity POCT Urinalysis Dipstick Automated 6. Whiplash injury, acute, initial encounter tiZANidine (ZANAFLEX) 4 mg tablet Plans: 1. Acute exacerbation of chronic low back pain Reviewed that she has had numerous MRIs of her spine in the last year of which at least 3 o f them have been on her low back. She has had no major change. Reviewed that their is absolu tely no sign of cauda equina syndrome. Injury to back nerves is NOT causing her urinary issu es. Educated patient what it means to have an acute exacerbation of chronic low back pain. A lso reviewed that as of May 23 insurance will no longer pain for continued use of opioids . It has been our conversation that she was going to need to stop using pain medication in n ear future. Refill of Tizanidine written and sent to [facility]. Encouraged her to not overdo her activity but to continue to stay active. Her MRi is very reassuring and her nerves and bladder are NOT in any danger. She reports that medrol dose pack has not been helpful in the past. 2. Chronic pain syndrome Rx written postdated for #30 tabs. She is aware that this is all she will receive in a john h and that this will no longer be covered after May 23. - HYDROcodone-acetaminophen (NORCO) 5-325 mg per tablet; Take 1 tablet by mouth every 6 roberto rs as needed for Pain (for severe break through pain). Dispense: 30 tablet; Refill: 0 3. Urinary incontinence, unspecified type Etiology is unclear but the MRI shows that there is no cauda equina. She no-showed 3 separa te appointments to have urology look at her bladder. Reviewed with patient that I am not kya ling to send her back unless circumstances significantly change and she is fully committed t o urological work up. She tried to make an excuse about not having a ride. Reviewed that the re are many people to get a ride from. She could take the bus (which was free all summer) or she could have walked. 4. Anxiety with depression Patient has poor coping mechanisms. Anxiety is improving slowly but still largely present. Increase to 150 mg daily. - venlafaxine (EFFEXOR XR) 150 mg 24 hr capsule; Take 1 capsule by mouth Daily. Dispense: 30 capsule; Refill: 11 I, Sammi Owen CMA, am acting as a scribe on behalf of, and in the presence of MD Sammi Ellis CMA 03/29/2017 I, Dr. Pj Abdi, personally performed the services described in this documentation, as scribed in my presence and it is both accurate and complete. Pj Abdi MD 03/29/17 documented in this en counter Plan of Treatment Not on filedocumented as of this encounter Procedures + +--------+ + + + | Procedure Name | Priori | Date/Time | Associated Diagnosis | Comments | | | ty | | | | + +--------+ + + + | POCT URINALYSIS, | Routin | 03/29/2017 | Back pain, | Results for this | | AUTO WITH CONF | e | 5:55 PM | unspecified back | procedure are in the | | | | PST | location, | results section. | | | | | unspecified back | | | | | | pain laterality, | | | | | | unspecified | | | | | | chronicity | | + +--------+ + + + documented in this encounter Results POCT Urinalysis Dipstick Automated (03/29/2017 5:55 PM PST) + + + + + [...] 1.001 - 1.030 | | | | [place], | | | | | | UA, POC | | | | | + + + + + + | Blood, UA, | Negative | Negative | | | | POC | | | | | + + + + + + | pH, UA, POC | 7.5 | 5.0, 6.0, 7.0, | | | [...] + + + + | Leukocyte | Trace (A) | Negative | | | | Esterase, [...] back pain - Primary | + + | Chronic pain syndrome | + + | Urinary incontinence, unspecified type | + + | Anxiety with depression | + + | Back pain, unspecified back location, unspecified back pain laterality, unspecified | | chronicity | + + | Whiplash injury, acute, initial encounter | + + documented in this encounter
--- OUTSIDE RECORDS SUMMARY | ~2019-10-30 | XMS | Encounter Summary ---
Demographics + + + | Address | [address] | | | [place] [address] | + + + | Home Phone | | + + + | Preferred Language | Unknown | + + + | Marital Status | Single | + + + | Pentecostalism Affiliation | 1013 | + + + [...] | | | | | [place] [address] | | + + + + + | Ab Romykia | ECON | Unknown | | + + + + + Care Team Providers + +------+ + | Care Mainspring Barrel Assembly Cleaner Name | Role | Phone | + +------+ + | Pj Abdi MD | PCP | | + +------+ + Reason for Visit + + + | Reason | Comments | + + + | Medication Problem | | + + + Encounter Details +--------+--------+ + + + | Date | Type | Department | Care Team | Description | +--------+--------+ + + + | 12/20/ | Refill | [facility] | Pj Abdi, | Medication Problem | | 2016 | | MEDIC[facility] [place] | [address] | | | | | [address] | [place] | | | | | [place] | [address] | | | | | [address] | | | | | | [phone] | | | +--------+--------+ + + + [...]
--- OUTSIDE RECORDS SUMMARY | ~2019-10-30 | XMS | Encounter Summary ---
Demographics + + + | Address | [address] | | | [place] [address] | + + + | Home Phone [...] | | | | | [place] [address] | | + + + + + | Ab Romykia | ECON | Unknown | | + + + + + Care Team Providers + +------+ + | Care Cancer Spec Name | Role | Phone | + +------+ + PCP | Unavailable | + +------+ + Encounter Details +--------+ + + + + | Date | Type | Department | Care Team | Description | +--------+ + + + + | 10/07/ | Hospital | [facility] | | | | 2008 | Encounter | [facility] | | | | | [facility] [address] | | | | | | [place], [place] | | | | | | [address] | | | | | | [phone] | | | +--------+ + + + [...]
--- OUTSIDE RECORDS SUMMARY | ~2019-10-30 | XMS | Encounter Summary ---
Demographics + + + | Address | [address] | | | [place] [address] | + + + | Home Phone | | + + + | Preferred Language | Unknown | + + + | Marital Status | Single | + + + | Taoism Affiliation | 1013 | + + + | Race | Unknown | + + + | Ethnic Group | Unknown | + + + Author + + + | Author | [facility] | | | and [place] | + + + | Organization | [facility] | | | [...] | | | | | [place] [address] | | + + + + + | Ab Romykia | ECON | Unknown | | + + + + + Care Team Providers + +------+ + | Care Roofer Apprentice Name | Role | Phone | + [...] | +--------+ + + + + | 10/05/ | Emergency | [facility] | Mike Isabel | Right lower quadrant | | 2016 - | | [facility] | Mukesh Ulloa MD | abdominal pain | | | | CENTER [address] | [address] | (Primary Dx) | | 10/06/ | | [place] | [place] | | | 2015 | | [address] | [address] | | | | | [phone] | | | +--------+ + + + [...] + + + | Blood Pressure | 111/69 | 10/07/2015 2:43 AM | | | | | PDT | | + + + + + | Pulse | 84 | 10/07/2015 2:43 AM | | | | | PDT | | + + + + + | Temperature | 36.9 C (98.4 F) | 10/06/2015 11:44 PM | | | | | PDT | | + + + + + | Respiratory Rate | 16 | 10/06/2015 11:44 PM | | | | | PDT | | + + + + + | Oxygen Saturation | 99% | 10/07/2015 2:43 AM | | | | | PDT | | + + + + + | Inhaled Oxygen | - | - | | | Concentration | | | | + + + + + | Weight | 56.7 kg (125 lb) | 10/06/2015 11:44 PM | | | | | PDT | | + + + + + | Height | 162.6 cm (5' 4") | 10/06/2015 11:44 PM | | | | | PDT | | + + + + + | Body Mass Index | 21.46 | 10/06/2015 11:44 PM | | | | | PDT | | + + + + + documented in this encounter Discharge Instructions Instructions FahaddominiqueEstfeany goodrich, RN - 10/07/2015Please follow-up with her primary care donta fernandez. We do not see any inflammatory changes to her bowels at this time. You may be guido ving some ovarian cyst problem and/or other non-operative cause of abdominal pain. Take pain medication as needed. Return for severe worsening symptoms. documented in this encounter Medications at Time [...] tablets by | 15 | 0 | 10/07/19 | | | HYDROcodone-acetamin | mouth every [...] tablet by | 15 | 0 | 10/07/19 | | | (ZOFRAN ODT) 4 mg | mouth every 6 hours | tablet | | 16 | 6 | | disintegrating | as needed for | | | | | | tablet | Nausea. | | | | | + + + +---------+ + + documented as of this encounter Plan of Treatment + +------+--------+ + + | Name | Type | Priori | Associated Diagnoses | Date/Time | | | | ty | | | + +------+--------+ + + | ED INFORMATION | CELSO | Routin | | 10/06/2015 11:23 PM | | EXCHANGE | | e | | PDT | + +------+--------+ + + documented as of this encounter Procedures + +--------+ + + + | Procedure Name | Priori | Date/Time | Associated Diagnosis | Comments | | | ty | | | | + +--------+ + + + | CT ABDOMEN PELVIS W | STAT | 10/07/2015 | | Results for this | | CONTRAST | | 12:43 AM | | procedure are in the | | | | PDT | | results section. | + +--------+ + + + | POCT TEST, | STAT | 10/07/2015 | | Results for this | | URINE, QUAL | | 12:28 AM | | procedure are in the | | | | PDT | | results section. | + +--------+ + + + | URINALYSIS WITH | STAT | 10/07/2015 | | Results for this | | MICROSCOPIC WITH | | 12:21 AM | | procedure are in the | | CULTURE IF INDICATED | | PDT | | results section. | + +--------+ + + + | EXTRA GREEN TOP TUBE | Routin | 10/06/2015 | | Results for this | | | e | 11:59 PM | | procedure are in the | | | | PDT | | results section. | + +--------+ + + + | LIPASE | STAT | 10/06/2015 | | Results for this | | | | 11:59 PM | | procedure are in the | | | | PDT | | results section. | + +--------+ + + + | COMPREHENSIVE | STAT | 10/06/2015 | | Results for this | | METABOLIC PANEL | | 11:59 PM | | procedure are in the | | | | PDT | | results section. | + +--------+ + + + | EXTRA LAVENDER TOP | Routin | 10/06/2015 | | Results for this | | TUBE | e | 11:58 PM | | procedure are in the | | | | PDT | | results section. | + +--------+ + + + | EXTRA GREEN TOP TUBE | Routin | 10/06/2015 | | Results for this | | | e | 11:58 PM | | procedure are in the | | | | PDT | | results section. | + +--------+ + + + | EXTRA GOLD TOP TUBE | Routin | 10/06/2015 | | Results for this | | | e | 11:58 PM | | procedure are in the | | | | PDT | | results section. | + +--------+ + + + | EXTRA BLUE TOP TUBE | Routin | 10/06/2015 | | Results for this | | | e | 11:58 PM | | procedure are in the | | | | PDT | | results section. | + +--------+ + + + | CBC WITH | STAT | 10/06/2015 | | Results for this | | DIFFERENTIAL | | 11:58 PM | | procedure are in the | | | | PDT | | results section. | + +--------+ + + + | ED INFORMATION | Routin | 10/06/2015 | | | | EXCHANGE | e | 11:23 PM | | | | | | PDT | | | + +--------+ + + + documented in this encounter Results CT Abdomen Pelvis w Contrast (10/07/2015 12:43 AM PDT) + + | Specimen | + + | | + + + + + | Narrative | Performed At | + + + | CT ABDOMEN PELVIS W CONTRAST 10/07/2015 12:42 AM HISTORY: | [facility] | | ABDOMINAL PAIN. COMPARISON: 01/07/2012. PROTOCOL: Axial images | | | of the abdomen and pelvis were obtained after administration of 70 mL | | | Omnipaque 350. Coronal and sagittal reformations were acquired. | | | FINDINGS: Chest base is normal. A stable low-attenuation | | | structure is in the anterior right hepatic lobe with some | | | heterogeneous enhancement measuring 1.1 cm, most consistent with a | | | hemangioma. The gallbladder is normal. Biliary ducts are unremarkable. | | | The spleen is unremarkable. The pancreas demonstrates normal | | | parenchyma and a normal pancreatic duct. Adrenal glands are normal. | | | There is mild heterogeneity with low attenuation involving the | | | central portions of both kidneys that is nonspecific. This could | | | reflect pyelonephritis in the appropriate clinical setting. No | | | hydronephrosis is observed. Stomach, small bowel, and terminal | | | ileum are normal. The appendix is absent. Colon is unremarkable. | | | Aorta is nonaneurysmal. The iliac arteries are normal. There is no | | | significant abnormality in the portal veins, mesenteric veins, or | | | systemic veins. No enlarged lymph nodes are visualized within the | | | omentum or retroperitoneum. There is no evidence for ascites or | | | free air. Bladder is normal. The uterus is normal. There is a | | | cyst of the right adnexa that measures 3.7 cm with simple fluid. A | | | 1.8 cm left adnexal cyst is observed with mildly complex fluid. | | | Body wall soft tissue structures are normal. There is mild right | | | curvature of the thoracolumbar spine. No acute osseous findings are | | | seen. IMPRESSION - Mild heterogeneity with low attenuation | | | involving the central portions of both kidneys that is nonspecific. | | | This could reflect pyelonephritis in the appropriate clinical | | | setting. No hydronephrosis is observed. Bilateral adnexal cysts | | | including a simple right cyst measuring 3.7 cm and a mildly complex | | | left cyst that measures 1.8 cm. Stable hepatic hemangioma. A | | | preliminary report was sent by [employer] on 10/07/2015 at 2:10 AM | | | with no significant discrepancy. Dictated and Signed by: Yovani Hopper | | MD Won Electronically signed: 10/07/2015 8:19 AM | | + + + + + | Procedure Note | + + | Brown Olmedo Results In - 10/07/2015 8:[address] ABDOMEN PELVIS W CONTRAST 10/07/2015 | | 12:42 AMHISTORY: ABDOMINAL PAIN.COMPARISON: 01/07/2012.PROTOCOL: Axial images of the | | abdomen and pelvis were obtained afteradministration of 70 mL Omnipaque 350. Coronal and | | sagittal reformations wereacquired.FINDINGS:Chest base is normal.A stable | | low-attenuation structure is in the anterior right hepatic lobe withsome heterogeneous | | enhancement measuring 1.1 cm, most consistent with ahemangioma. The gallbladder is | | normal. Biliary ducts are unremarkable.The spleen is unremarkable. The pancreas | | demonstrates normal parenchyma and anormal pancreatic duct. Adrenal glands are | | normal.There is mild heterogeneity with low attenuation involving the central portionsof | | both kidneys that is nonspecific. This could reflect pyelonephritis in theappropriate | | clinical setting. No hydronephrosis is observed.Stomach, small bowel, and terminal ileum | | are normal. The appendix is absent.Colon is unremarkable.Aorta is nonaneurysmal. The | | iliac arteries are normal. There is no significantabnormality in the portal veins, | | mesenteric veins, or systemic veins. No enlarged lymph nodes are visualized within the | | omentum or retroperitoneum.There is no evidence for ascites or free air.Bladder is | | normal.The uterus is normal. There is a cyst of the right adnexa that measures 3.7 | | cmwith simple fluid. A 1.8 cm left adnexal cyst is observed with mildly | | complexfluid.Body wall soft tissue structures are normal. There is mild right curvature | | ofthe thoracolumbar spine. No acute osseous findings are seen.IMPRESSION -Mild | | heterogeneity with low attenuation involving the central portions of bothkidneys that is | | nonspecific. This could reflect pyelonephritis in theappropriate clinical setting. No | | hydronephrosis is observed.Bilateral adnexal cysts including a simple right cyst | | measuring 3.7 cm and amildly complex left cyst that measures 1.8 cm.Stable hepatic | | hemangioma.A preliminary report was sent by [employer] on 10/07/2015 at 2:10 AM with | | nosignificant discrepancy.Dictated and Signed by: Yovani Upton MD Electronically | | signed: 10/07/2015 8:19 AM | | | |Aorta is nonaneurysmal. The iliac arteries are normal. There is no significant | |abnormality in the portal veins, mesenteric veins, or systemic veins. | | | |No enlarged lymph nodes are visualized within the omentum or retroperitoneum. | | | |There is no evidence for ascites or free air. | | | |Bladder is normal. | | | |The uterus is normal. There is a cyst of the right adnexa that measures 3.7 cm | |with simple fluid. A 1.8 cm left adnexal cyst is observed with mildly complex | |fluid. | | | |Body wall soft tissue structures are normal. There is mild right curvature of | |the thoracolumbar spine. No acute osseous findings are seen. | | | |IMPRESSION - | |Mild heterogeneity with low attenuation involving the central portions of both | |kidneys that is nonspecific. This could reflect pyelonephritis in the | |appropriate clinical setting. No hydronephrosis is observed. | | | |Bilateral adnexal cysts including a simple right cyst measuring 3.7 cm and a | |mildly complex left cyst that measures 1.8 cm. | | | |Stable hepatic hemangioma. | | | |A preliminary report was sent by [employer] on 10/07/2015 at 2:10 AM with no | |significant discrepancy. | | | |Dictated and Signed by: Yovani Upton MD | | Electronically signed: 10/07/2015 8:19 AM | + + + +---------+ + + | Performing | Address | City/State/Zipcode | Phone Number | | Organization | | | | + +---------+ + + | [facility] | | | | + +---------+ + + POCT Test, Urine, QUAL (10/07/2015 12:28 AM PDT) + + + + + [...] | 1.010, 1.015, | | | | [place], | | 1.020, 1.025 | | | | POC | | | | | + + + + + + | Lot Number | [id number] | | | | + + + + + + | Expiration | 2017-01 | | | | | Date | | | | | + + + + + + + + | Specimen | + + | Urine specimen | | (specimen) | + + Urinalysis with Microscopic with Culture if Indicated (10/07/2015 12:21 AM PDT) + + + + + [...] - 1.030 | [facility] | | | [place], | | | [facility] | | [...] [address] | [place] | [phone] | | [facility] | | [address] | | | - LABORATORY | | | | + + + + + Lipase (10/06/2015 11:59 PM PDT) + +-------+ + + + | Component | Value | Ref Range | Performed | Pathologist | | | | | At | Signature | + +-------+ + + + | Lipase | 19 | 0 - 60 U/L | [facility] | | | | | [...] ST. | [address] | [place] | [phone] | | [facility] | | [address] | | | - LABORATORY | | | | + + + + + Comprehensive Metabolic Panel (10/06/2015 11:59 PM PDT) + + + + + + | Component | Value | Ref Range | Performed | Pathologist | | | | | At | Signature | + + + + + + | Na | 142 | 136 - 149 | [facility] | | | | | mmol/L | [facility] | | | | | | MEDICAL | | | | | | CENTER - | | | | | | LABORATORY | | + + + + + + | K | 3.5 | 3.5 - 5.1 | [facility] | [...] + + + + | Glucose | 65 (L) | 70 - 109 mg/dL | [facility] | | | | | | [facility] | | | | | | MEDICAL | | | | | | CENTER - | | | | | | LABORATORY | | + + + + + + | BUN | 7 | 7 - 18 mg/dL | [facility] | | | | | | [facility] | | | | | | MEDICAL | | | | | | CENTER - | | | | | | LABORATORY | | + + + + + + | Creatinine | 0.60 | 0.60 - 1.30 | [facility] | [...] mL/min/1.73m2 | [facility] | | | [place] | RATE,ESTIMATED | | MEDICAL | | | | mL/min/1.67d4Jgpg than | | CENTER - | | [...] + + + + | Calcium | 9.8 | 8.3 - 10.5 | [facility] | | | | | mg/dL | [facility] | | | | | | MEDICAL | | | | | | CENTER - | | | | | | LABORATORY | | + + + + + + | Albumin | 4.2 | 3.2 - 5.0 g/dL | [facility] | | | | | | [facility] | | | | | | MEDICAL | | | | | | CENTER - | | | | | | LABORATORY | | + + + + + + | Bilirubin | 0.3Comment: This is an | 0.1 - 1.5 mg/dL | [facility] | | | Total | appended report. These | | [facility] | | | | results have been | | MEDICAL | | | | appended to a previously | | CENTER - | | | | preliminary verified | | LABORATORY | | | | report. | | | | + + + + + + | Total | 6.4 | 6.0 - 7.8 g/dL | [facility] | | | Protein | | | [facility] | | | | | | MEDICAL | | | | | | CENTER - | | | | | | LABORATORY | | + + + + + + | AST | 20Comment: This is an | 10 - 42 U/L | [facility] | | | | appended report. These | | [facility] | | | | results have been | | MEDICAL | | | | appended to a previously | | CENTER - | | | | preliminary verified | | LABORATORY | | | | report. | | | | + + + + + + | ALT | 16Comment: This is an | 6 - 45 [...] + + + + | Alkaline | 85Comment: This is an | 40 - 110 [...] + + + + | Globulin | 2.2 | 2.1 - 3.8 g/dL | [facility] | | | | | | [facility] | | | | | | MEDICAL | | | | | | CENTER - | | | | | | LABORATORY | | + + + + + + | Albumin/Bianca | 1.9 | 0.8 - 2.0 | [facility] | | | bulin Ratio | | | [facility] | | | | | | MEDICAL | | | | | | CENTER - | | | | | | LABORATORY | | + + + + + + | BUN/Creatin | 11.7 | | [facility] | | | ine [...] + | [facility] | [address] | [place] | [phone] | | [facility] | | [address] | | | - LABORATORY | | | | + + + + + Extra Green Top Tube (10/06/2015 11:59 PM PDT) + +-------+ + + + [...] + | [facility] | [address] | [place] | [phone] | | [facility] | | [address] | | | - LABORATORY | | | | + + + + + CBC with Differential (10/06/2015 11:58 PM PDT) + +-------+ + + + | Component | Value | Ref Range | Performed | Pathologist | | | | | At | Signature | + +-------+ + + + | WBC | 9.7 | 4.0 - 11.0 K/uL | [facility] | | | | | | [facility] | | | | | | MEDICAL | | | | | | CENTER - | | | | | | LABORATORY | | + +-------+ + + + | RBC | 4.06 | 3.70 - 5.20 | [facility] | | | | | M/uL | [facility] | | | | | | MEDICAL | | | | | | CENTER - | | | | | | LABORATORY | | + +-------+ + + + | Hemoglobin | 13.0 | 11.5 - 16.0 | [facility] | | | | | g/dL | [facility] | | | | | | MEDICAL | | | | | | CENTER - | | | | | | LABORATORY | | + +-------+ + + + | Hematocrit | 38.1 | 34.0 - 47.0 % | [facility] | | | | | | [facility] | | | | | | MEDICAL | | | | | | CENTER - | | | | | | LABORATORY | | + +-------+ + + + | MCV | 94.0 | 83.0 - 101.0 fL | [facility] [...] +-------+ + + + | MCHC | 34.2 | 32.0 - 36.0 | [facility] | | | | | g/dL | [facility] | | | | | | MEDICAL | | | | | | CENTER - | | | | | | LABORATORY | | + +-------+ + + + | RDW-CV | 12.6 | <15.0 % | [facility] | | | | | | [facility] | | | | | | MEDICAL | | | | | | CENTER - | | | | | | LABORATORY | | + +-------+ + + + | Platelet | 318 | 140 - 440 K/uL | [facility] | | | Count | | | [facility] | | | | | | MEDICAL | | | | | | CENTER - | | | | | | LABORATORY | | + +-------+ + + + | MPV | 7.6 | fL | [facility] | | | | | | [facility] | | | | | | MEDICAL | | | | | | CENTER - | | | | | | LABORATORY | | + +-------+ + + + | % | 60.4 | 45.0 - 82.0 % | [facility] | | | Neutrophils | | | [facility] | | | | | | MEDICAL | | | | | | CENTER - | | | | | | LABORATORY | | + +-------+ + + + | % | 31.9 | 20.0 - 45.0 % | [facility] | | | Lymphocytes | | | [facility] | | | | | | MEDICAL | | | | | | CENTER - | | | | | | LABORATORY | | + +-------+ + + + | % Monocytes | 4.9 | 4.0 - 12.0 % | [facility] | | | | | | [facility] | | | | | | MEDICAL | | | | | | CENTER - | | | | | | LABORATORY | | + +-------+ + + + | % | 1.9 | 0.0 - 5.0 % | [facility] | | | Eosinophils | | | [facility] | | | | | | MEDICAL | | | | | | CENTER - | | | | | | LABORATORY | | + +-------+ + + + | % Basophils | 0.9 | 0.0 - 1.0 % | [facility] | | | | | | [facility] | | | | | | MEDICAL | | | | | | CENTER - | | | | | | LABORATORY | | + +-------+ + + + | Absolute | 5.80 | 1.80 - 8.50 | [facility] | | | Neutrophils | | K/uL | [facility] | | | | | | MEDICAL | | | | | | CENTER - | | | | | | LABORATORY | | + +-------+ + + + | Absolute | 3.10 | 0.60 - 3.20 | [facility] | | | Lymphocytes | | K/uL | [facility] | | | | | | MEDICAL | | | | | | CENTER - | | | | | | LABORATORY | | + +-------+ + + + | Absolute | 0.50 | 0.00 - 1.00 | [facility] | | | Monocytes | | K/uL | [facility] | | | | | | MEDICAL | | | | | | CENTER - | | | | | | LABORATORY | | + +-------+ + + + | Absolute | 0.20 | 0.00 - 0.40 | [facility] | | | Eosinophils | | K/uL | [facility] | | | | | | MEDICAL | | | | | | CENTER - | | | | | | LABORATORY | | + +-------+ + + + | Absolute | 0.10 | 0.00 - 0.10 | [facility] | [...] + | [facility] | [address] | [place] | [phone] | | [facility] | | [address] | | | - LABORATORY | | | | + + + + + Extra Lavender Top Tube (10/06/2015 11:58 PM PDT) + +-------+ + + + | Component | Value | Ref Range | Performed | Pathologist | | | | | At | Signature | + +-------+ + + + | Extra | Done | | [facility] | | | [place] | | | [facility] | | [...] [address] | [place] | [phone] | | [facility] | | [address] | | | - LABORATORY | | | | + + + + + Extra Gold Top Tube (10/06/2015 11:58 PM PDT) + +-------+ + + + | Component | Value | Ref Range | Performed | Pathologist | | | | | At | Signature | + +-------+ + + + | Extra Gold | Done | | [facility] | | | Top Tube | | | [facility] | | | | | | MEDICAL [...] + | [facility] | [address] | [place] | [phone] | | [facility] | | [address] | | | - LABORATORY | | | | + + + + + Extra Green Top Tube (10/06/2015 11:58 PM PDT) + +-------+ + + + [...] [address] | [place] | [phone] | | [facility] | | [address] | | | - LABORATORY | | | | + + + + + Extra Blue Top Tube (10/06/2015 11:58 PM PDT) + +-------+ + + + [...] + + + + + | [facility] | [address] | [place] | [phone] | | [facility] | | [address] | | | - LABORATORY | | | | + + + + + documented in this encounter Visit Diagnoses + + | Diagnosis | + + | Right lower quadrant abdominal pain - Primary Abdominal pain, right lower quadrant | + + documented in this encounter Administered Medications + + + + +------+------+ | Medication Order | MAR | Action | Dose | Rate | Site | | | Action | Date | | | | + + + + +------+------+ | HYDROcodone-acetaminophen | Dispense | 10/07/19 | 1 tablet | | | | (NORCO) 5-325 mg per tablet (ER | to Home | 16 2:42 | | | | | Prepack) 1-2 tablet 1-2 tablet, | | AM PDT | | | | | Oral, ONCE, 10/07/15 at 0220, | | | | | | | For 1 dose, Take 1-2 tablet(s) | | | | | | | every 6 hours if needed. | | | | | | | Dispense for home use., | | | | | | + + + + +------+------+ +---+---+ | | | +---+---+ + +-------+ +------+---+---+ | HYDROmorphone (DILAUDID) 1 | Given | 10/07/19 | 1 mg | | | | mg/mL injection 1 mg 1 mg, | | 16 1:43 | | | | | Intravenous, ONCE, 10/07/15 at | | AM PDT | | | | | 0140, For 1 dose | | | | | | + +-------+ +------+---+---+ +---+---+ | | | +---+---+ + +-------+ +--------+---+---+ | iohexol (OMNIPAQUE 350) 350 | Given | 10/07/19 | 70 mLs | | | | mg/mL injection 70 mL 70 mL, | | 16 12:42 | | | | | Intravenous, ONCE PRN, Other, | | AM PDT | | | | | Starting 10/07/15 at 0042, For | | | | | | | 1 dose, Cat Scanner | | | | | | + +-------+ +--------+---+---+ +---+---+ | | | +---+---+ + +-------+ +-------+---+---+ | ketorolac (TORADOL) injection | Given | 10/07/19 | 30 mg | | | | 30 mg 30 mg, Intravenous, ONCE, | | 16 2:20 | | | | | 10/07/15 at 0220, For 1 dose | | AM PDT | | | | + +-------+ +-------+---+---+ +---+---+ | | | +---+---+ + +-------+ +------+---+---+ | morphine injection 4 mg 4 mg, | Given | 10/07/19 | 4 mg | | | | Intravenous, ONCE, 10/07/15 at | | 16 12:14 | | | | | 0015, For 1 dose | | AM PDT | | | | + +-------+ +------+---+---+ +---+---+ | | | +---+---+ + + + +------+---+---+ | ondansetron (ZOFRAN ODT) | Dispense | 10/07/19 | 4 mg | | | | disintegrating tablet (ED | to Home | 16 2:42 | | | | | homepack) 4 mg 4 mg, Oral, EVERY | | AM PDT | | | | | 6 HOURS PRN, Nausea, Starting | | | | | | | 10/07/15 at 0214 | | | | | | + + + +------+---+---+ +---+---+ | | | +---+---+ documented in this encounter
--- OUTSIDE RECORDS SUMMARY | ~2019-10-30 | XMS | Encounter Summary ---
Demographics + + + | Address | [address] | | | [place] [address] | + + + | Home Phone [...] + + + | Author | [facility] | | | and [place] | + + + | Organization | [facility] | | [...] | | | | | [place] [address] | | + + + + + | Ab Romykia | ECON | Unknown | | + + + + + Care Team Providers + +------+ + | Care Software Security Architect Name | Role | Phone | + [...] + + | 08/29/ | Office | [facility] | Marcy Naik | Lumbar radiculopathy | | 2017 | Visit | CARE [address] | [address] | (Primary Dx) | | | | [place], [place] | [place], [place] | | | | | [address] | [address] | | | | | [phone] | | | +--------+---------+ + + + [...] muscle relaxer sent to pharmacy Prescription for Mcneil given Follow-up with your primary care provider [...]
--- OUTSIDE RECORDS SUMMARY | ~2019-10-30 | XMS | Encounter Summary ---
Demographics + + + | Address | [address] | | | [place] [address] | + + + | Home Phone [...] | | | | | [place] [address] | | + + + + + | Ab Bunch | ECON | Unknown | | + + + + + Care Team Providers + +------+ + | Care Lead Scientist Name | Role | Phone | + +------+ + | Pj Abdi MD | PCP | | + +------+ + Encounter Details +--------+ + + + + | Date | Type | Department | Care Team | Description | +--------+ + + + + | 07/20/ | Documentati | [facility] | Tito Hawkins | | | 2018 | on | [facility] | G, PT [address] | | | | | OP [address] | [address] [place], [place] | | | | | [place], [place] | [address] | | | | | [address] | | | | | | [phone] | | | +--------+ + + + [...] + documented as of this encounter Progress Tito Jones, PT - 07/20/2017 2:31 PM [facility] OP [address] [facility] [address] Cancellation/No Show Date: 07/20/2017 Patient Information Patient Name: Donna Camarena Date of : 1995 Age: 22 y.o. Reason for missed visit: cancelled the evaluation by my chart, work conflict Phone call placed: no Plan: to re-schedule through the office Electronically signed by: Tito Hawkins, PT, 07/20/2017 14:31 Patient Name: Donna Camarena/: 1995/ documented in thi s encounter Plan of Treatment Not on filedocumented as of this encounter Visit Diagnoses Not on filedocumented in this encounter"
--- OUTSIDE RECORDS SUMMARY | ~2019-10-30 | XMS | Encounter Summary ---
Demographics + + + | Address | [address] | | | [place] [address] | + + + | Home Phone [...] | | | | | [place] [address] | | + + + + + | Ab Romykia | ECON | Unknown | | + + + + + Care Team Providers + +------+ + | Care Grants Manager Name | Role | Phone | [...] Description | +--------+--------+ + + + | 01/26/ | Refill | [facility] | Pj Abdi, | Medication Refill | | 2016 | | [facility] [place] | [address] | | | | | [address] | [place] | | | | | [place] | [address] | | | | | [address] | | | | | | [phone] | | | +--------+--------+ + + + [...]
--- OUTSIDE RECORDS SUMMARY | ~2019-10-30 | XMS | Encounter Summary ---
Demographics + + + | Address | [address] | | | [place] [address] | + + + | Home Phone | | + + + | Preferred Language | Unknown | + + + | Marital Status | Single | + + + | Bahai Affiliation | 1013 | + + + [...] | | | | | [place] [address] | | + + + + + | Ab Romykia | ECON | Unknown | | + + + + + Care Team Providers + +------+ + | Care Floor Sanding Machine Operator Name | Role | Phone | + +------+ + PCP | Unavailable | + +------+ + Encounter Details +--------+ + + + + | Date | Type | Department | Care Team | Description | +--------+ + + + + | 07/12/ | Hospital | [facility] | | | | 2010 | Encounter | [facility] | | | | | | [facility] [address] | | | | | | [place], | | | | | | [place] [address] | | | | | | [phone] | | | +--------+ + + + [...]
--- OUTSIDE RECORDS SUMMARY | ~2019-10-30 | XMS | Encounter Summary ---
Demographics + + + | Address | [address] | | | [place] [address] | + + + | Home Phone [...] + + + | Author | [facility] | | | and Johnana | + + + | Organization | [facility] | | | [...] | | | | | [place] [address] | | + + + + + | Ab Romykia | ECON | Unknown | | + + + + + Care Team Providers + +------+ + | Care Pcb Design Engineer Name | Role | Phone | [...] + | 02/09/ | Refill | [facility] | Pj Abdi, | Medication Refill | | 2016 | | [facility] [place] | [address] | | | | | [address] | [place] | | | | | [place] | [address] | | | | | [address] | | | | | | [phone] | | | +--------+--------+ + + + [...]
--- OUTSIDE RECORDS SUMMARY | ~2019-10-30 | XMS | Encounter Summary ---
Demographics + + + | Address | [address] | | | [place] [address] | + + + | Home Phone | | + + + | Preferred Language | Unknown | + + + | Marital Status | Single | + + + | Judaism Affiliation | 1013 | + + + | Race | Unknown | + + + | Ethnic Group | Unknown | + + + Author + + + | Author | [facility] | | | and Johnana | + + + | Organization | [facility] | | | [...] | | | | | [place] [address] | | + + + + + | Ab Romykia | ECON | Unknown | | + + + + + Care Team Providers + +------+ + | Care News Assistant Name | Role | Phone | + +------+ + PCP | Unavailable | + +------+ + Encounter Details +--------+ + + + + | Date | Type | Department | Care Team | Description | +--------+ + + + + | 05/01/ | Hospital | [facility] | Mukesh Coppola | | | 2008 - | Encounter | [facility] | MD [address] | | | | | CENTER [address] | [address] | | | 05/02/ | | [place], [place] | [place] [address] | | | 2008 | | [address] | [phone] | | | | | [phone] | | | +--------+ + + + [...]
--- OUTSIDE RECORDS SUMMARY | ~2019-10-30 | XMS | Encounter Summary ---
Demographics + + + | Address | [address] | | | [place] [address] | + + + | Home Phone [...] | | | | | [place] [address] | | + + + + + | Ab Romykia | ECON | Unknown | | + + + + + Care Team Providers + +------+ + | Care Jigger Crown Pouncing Machine Operator Name | Role | Phone [...] | +--------+ + + + + | 12/28/ | Telephone | [facility] | Pj Abdi, | ED Follow-up | | 2018 | | MEDICINE [place] | [address] | | | | | [address] | [place] | | | | | [place] | [address] | | | | | [address] | | | | | | [phone] | | | +--------+ + + + [...]
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
--- OUTSIDE RECORDS SUMMARY | ~2019-10-30 | XMS | Encounter Summary ---
Demographics + + + | Address | [address] | | | [place] [address] | + + + | Home Phone [...] | | | | | [place] [address] | | + + + + + | Ab Romykia | ECON | Unknown | | + + + + + Care Team Providers + +------+ + | Care Car Salesperson Name | Role | Phone | + +------+ + | No Unknownpcp | PCP | | + +------+ + Reason for Visit + + + | Reason | Comments | + + + | Shoulder Pain | rm 8/ left shoulder and right wrist pain x 1 day | + + + Encounter Details +--------+---------+ + + + | Date | Type | Department | Care Team | Description | +--------+---------+ + + + | 06/05/ | Office | [facility] | Murray Domingo, | Thumb tendonitis | | 2020 | Visit | CARE [address] | MD [address] | (Primary Dx); | | | | [place] | [place] | Tendonitis of | | | | [address] | [address] | shoulder, left | | | | [phone] | | | +--------+---------+ + + + [...] + + + | Blood Pressure | 135/76 | 06/05/2019 7:03 PM | | | | | PST | | + + + + + | Pulse | 96 | 06/05/2019 7:03 PM | | | | | PST | | + + + + + | Temperature | 36.4 C (97.6 F) | 06/05/2019 7:03 PM | | | | | PST | | + + + + + | Respiratory Rate | 16 | 06/05/2019 7:03 PM | | | | | PST | | + + + + + | Oxygen Saturation | 100% | 06/05/2019 7:03 PM | | | | | PST | | + + + + + | Inhaled Oxygen | - | - | | | Concentration | | | | + + + + + | Weight | 55.5 kg (122 lb 5.7 | 06/05/2019 7:03 PM | | | | oz) | PST | | + + + + + | Height | 162.6 cm (5' 4") | 06/05/2019 7:03 PM | | | | | PST | | + + + + + | Body Mass Index | 21 | 06/05/2019 7:03 PM | | | | | PST | | + + + + + documented in this encounter Patient Instructions Patient Instructions Murray Domingo MD - 06/05/2019 7:00 PM PST No heavy lifting or strenuous activity involving the left shoulder for 2 weeks. Understanding Rotator Cuff Tendonitis Tendons are tough tissues that connect muscles to bone. A group of 4 muscles and their tend ons form a cuff around the head of the upper arm bone. This is called the rotator cuff . It connects the upper arm to the shoulder blade. It gives the shoulder joint stability and strength. If tendons are injured or strained, they may become irritated and swollen (inflamed). This is called tendonitis. Rotator cuff tendonitis may cause shoulder pain and loss of function. What causes rotator cuff tendonitis? Tendonitis results when the rotator cuff tendons are injured or overworked. The most common cause of injury is repetitive overhead activities. These can be work-related activities suc h as reaching, pushing, or lifting. Or they can be sports-related activities such as throwin g, swimming, or lifting weights. Symptoms of rotator cuff tendonitis Pain on the side of the upper arm is the most common symptom. Pain may get worse with overh ead movements or when you raise the arm above shoulder level. It may also hurt to lie on the shoulder at night. Treatment for rotator cuff tendonitis Treatment may include the following: Active rest. This lets the rotator cuff heal. Active rest means using your arm and shoul debbie, but avoiding activities that cause pain, such as reaching overhead or sleeping on the s houlder. Cold packs. Putting ice packs on the shoulder helps reduce swelling and relieve pain. Pain medicines. Prescription or tgjh-yqi-xikwhui pain medicines can help relieve pain an d swelling. Arm and shoulder exercises. These help keep the shoulder joint mobile as it heals. They also help improve the strength of muscles around the joint. Possible complications It might be tempting to stop using your shoulder completely to avoid pain. But doing so may lead to a condition called frozen shoulder. To help prevent this, following instructi ons you are given for active rest and for doing exercises to help your shoulder heal. When to call your healthcare provider Call your healthcare provider right away if you have any of these: Fever of 100.4F (38C) or higher, or as directed Symptoms that don t get better, or get worse New symptoms Date Last Reviewed: 07/31/201519999366-0740 [employer]. [address] [place] [address]. All righ ts reserved. This information is not intended as a substitute for professional medical care. Always follow your healthcare professional's instructions. De Quervain Tenosynovitis De Quervain tenosynovitis is inflammation of tendons and synovium on the thumb side of the wrist. Tendons are fibers that attach muscle to bone. Synovium is a slick membrane that help s tendons move. Movements done over and overcan irritate and inflame these tissues. This c an cause pain when you touch or grasp objects, turn or twist your wrist, or make a fist. You may also have pain and swelling near the base of the thumb or numbness along the back of yo ur thumb and index finger. You may also feel the thumb catch or snap when you move it. Treatment will depend on how bad the symptoms are. It can often be treated with medicines, injections, splinting,and home care. If your case is severe, you may be referred to a spec ialist to talk aboutsurgery. Home care Your healthcare provider may prescribe medicines to relieve pain and reduce inflammation. A steroid medicine may be injected near the tendons. This reduces swellingand pain. The hea lthcareprovider may also suggest taking evro-hqm-qdmhxed medicines such asibuprofen or n aproxen. These help reduce inflammation. Take all medicines only as directed. The following are general care guidelines: Avoid repetitive movements of your wrist and thumb. Note any activity that causes pain or swelling. If possible, avoid or limit that activit y. Put a cold pack on your thumb. To make an ice pack, put ice cubes in a plastic bag that seals at the top. Wrap the bag in a clean, thin towel or cloth.Hold this to your thumb for up to 20 minutes at a time. Don't put ice directly on the skin. Your healthcare provider may put a splinton the thumb to hold it still. Use the splint as you have been instructed. In some cases, you may need touse a splint 24 hours a day fo r 4 to 6 weeks. This willallow the wrist and thumb to heal. Follow-up care Follow up with your healthcare provider, or as advised. You may need moretreatment if you r injury is severe or if your symptoms don't get better. This additional treatment may inclu delocal injections, physical therapy, and surgery. When to seek medical advice Call your healthcare provider right awayif any of these occur: Increase in pain or swelling You have fever, chills, redness, warmth, or drainage Symptoms get worse after taking medicine Pain spreads farther down the thumb or into the forearm Pain continues to get in the way of daily life Date Last Reviewed: 10/21/201719993504-6728 [employer]. [address] [place] [address]. All righ ts reserved. This information is not intended as a substitute for professional medical care. Always follow your healthcare professional's instructions. Triamcinolone injection Brand Names: Aristospan, Arze-Ject-A, Kenalog, Triamonide, Triesence What is this medicine? TRIAMCINOLONE (trye am SIN oh lone) is a corticosteroid. It helps to reduce swelling, redne ss, itching, and allergic reactions. This medicine is used to treat allergies, arthritis, as thma, skin problems, and many other conditions. How should I use this medicine? This medicine is injected by a health day care attendant. After your dose follow your doctor 's instructions for your care. Contact your environmental health manager regarding the use of this medicine in children. Special care may be needed. What side effects may I notice from receiving this medicine? Side effects that you should report to your doctor or health day care attendant as soon as p ossible: allergic reactions like skin rash, itching or hives, swelling of the face, lips, or tong ue black, tarry stools changes in emotions or moods changes in vision eye pain increased blood pressure increased joint pain and swelling at site where injected lumpy, thin skin at site where injected signs and symptoms of high blood sugar such as dizziness; dry mouth; dry skin; fruity br eath; nausea; stomach pain; increased hunger or thirst; increased urination rounding of face seizures signs and symptoms of infection like fever or chills; cough; sore throat; pain or troubl e passing urine slow growth in children (if used for longer periods of time) sores that do not heal stomach pain swelling of ankles, feet, hands trouble sleeping unusual bleeding or bruising unusual increased growth of hair on the face or body unusually weak or tired Side effects that usually do not require medical attention (report to your doctor or health day care attendant if they continue or are bothersome): headache increased appetite nausea pain, redness, or irritation at site where injected upset stomach weight gain What may interact with this medicine? antiviral medicines for HIV or AIDS aspirin certain medicines for fungal infections like ketoconazole and itraconazole clarithromycin mifepristone nefazodone other steroid medicines vaccines and other immunization products What if I miss a dose? This does not apply. Where should I keep my medicine? Keep out of the reach of children. Store at room temperature between 20 and 25 degrees C (68 and 77 degrees F). Do not freeze. Protect from temperatures below 20 degrees C (68 degrees F). Protect from light. Keep in th e original container. Store vial upright. Throw away any unused medicine after the expiratio n date. What should I tell my health care provider before I take this medicine? They need to know if you have any of these conditions: Paris's syndrome diabetes glaucoma heart disease high blood pressure infection, like tuberculosis, herpes, measles, chickenpox, or fungal infection liver disease low levels of potassium in the blood mental illness myasthenia gravis osteoporosis recent heart attack seizures stomach or intestine disease thyroid disease an unusual or allergic reaction to triamcinolone, corticosteroids, benzyl alcohol, other medicines, foods, dyes, or preservatives or trying to get breast-feeding What should I watch for while using this medicine? Visit your doctor or health day care attendant for regular checks on your progress. If you a re diabetic, check your blood sugar as directed. If you are taking this medicine for a long time, carry an identification card with your name, the type and dose of medicine, and your d octor's name and address. You may need to be on a special diet while taking this medicine. Talk to your doctor. Do not come in contact with people who have chickenpox or the measles while you are taking this medicine. If you do, call your doctor right away. NOTE:This sheet is a summary. It may not cover all possible information. If you have questi ons about this medicine, talk to your doctor, pharmacist, or health care provider. Copyright 2019 [employer] documented in this encounter Progress Notes Murray Domingo MD - 06/05/2019 7:00 PM PSTFormatting of this note might be different fr om the original. Subjective: Patient ID: Donna Camarena is a 23 y.o. female.who presents today for Shoulder Pain (rm 8/ left shoulder and right wrist pain x 1 day) . HPI She is complaining of left shoulder and wrist pain on the right side. 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 She has pain with hand grasp and movement of the thumb at this point. For t he shoulder she does a lot of lifting of the dough trays and other physical activities at wo rk. Her shoulder is been getting increasingly sore over the past 2 or 3 days. She has had problems with the shoulder in the past but has had no specific injuries she has rotator cuff and has had no shoulder surgeries. She takes ibuprofen occasionally and also takes Tylenol . She has history of opioid dependence and is currently on Suboxone. She has no history of diabetes and has had no problems with peptic ulcer disease, gastroesophageal reflux, or abd ominal pains with the ibuprofen. Patient Active Problem List Diagnosis Generalized anxiety disorder Moderate episode of recurrent major depressive disorder PONV (postoperative nausea and vomiting) Smoker - Daily Chronic low back pain DDD (degenerative disc disease), lumbar Facet arthritis of lumbar region Panic disorder Chronic pain syndrome Insomnia Borderline personality disorder Opioid dependence Past Surgical History: Procedure Laterality Date APPENDECTOMY 2011 Dr. Fernández; [facility] LAPAROSCOPY N/A 06/16/2015 Procedure: Diagnostic Laparoscopy laparoscopic ovarian drilling,right; Surgeon: Nikko Sánchez DO; Location: [facility] MAIN OR OVARIAN CYST REMOVAL 2011 Dr. Fernández; [facility] OVARIAN CYST REMOVAL 2013 Dr. Fernández; [facility] SALPINGO-OOPHORECTOMY Right 03/11/2016 Procedure: Laparoscopic R.S.O.; Surgeon: Nikko Sánchez DO; Location: [facility] MAIN OR STEFANO AND BSO Right 02/2016 right tube removed as well Current Outpatient Medications Medication Sig Dispense Refill gabapentin (NEURONTIN) 300 mg capsule TAKE TWO CAPSULES THREE TIMES A DAY 180 capsule 5 Multiple Vitamins-Minerals (ONE DAILY WOMENS 50 PLUS PO) Take by mouth. naproxen (NAPROSYN) 500 mg tablet TAKE ONE TABLET TWICE A DAY WITH BREAKFAST AND DINNER 60 tablet 5 ondansetron (ZOFRAN) 4 mg tablet TAKE ONE TABLET EVERY 8 HOURS NEEDED FOR NAUSEA 45 tablet 3 SUBOXONE 8-2 MG SL film 10 mg Daily. 0 No current facility-administered medications for this visit. She reports that she has been smoking cigarettes. She started smoking about 9 years ago. S he has a 14.00 pack-year smoking history. She has never used smokeless tobacco. She reports current alcohol use of about 0 standard drinks or equivalent per week. She reports that she does not use drugs. Allergies Allergen Reactions Dimetapp Cold-Allergy Hives,Rash Meloxicam Hives,Anxiety,Rash Intolerance Allergen Reactions Nortriptyline Other (See Comments) INEFFECTIVE ROS Objective: BP 135/76 | Pulse 96 | Temp 36.4 C (97.6 F) (Temporal) | Resp 16 | Ht 1.626 m (5' 4 ") | Wt 55.5 kg (122 lb 5.7 oz) | LMP 05/17/2019 | SpO2 100% | BMI 21.00 kg/m Physical Exam The left shoulder is with no deformity. She has painful range of motion, especially with i nternal rotation and elevation above the level of the shoulder with the arm. She has mild p ain with resisted abduction and internal rotation. There is tenderness in the anterior shou lder around the AC joint as well as on the posterior aspect of the shoulder. There is no sh oulder deformity and no swelling or erythema. No crepitance is palpable on range of motion. The right wrist is with no deformity. She is tender at the base of the first metacarpal. There is no bony tenderness. She has normal range of motion of the thumb but has discomfort with abduction especially against resistance. With the thumb tucked and grasping over to m aminah fist she has discomfort at the base of the first metacarpal. There is no tenderness ove r the volar wrist and no snuffbox tenderness. She has normal range of motion of the wrist. Distal capillary fill and sensation is normal. Treatment options are discussed with the patient. She states that with the shoulder not ge tting any better she would prefer to have a steroid injection to see if that will help. She is advised that I am not comfortable doing injections in the thumb for the de Quervain's te nosynovitis. If this pain persist she will need to consider being seen by someone such as h and specialist that can do steroid injection. Otherwise she should continue with anti-infla mmatories and a thumb splint. 3 cc of Sensorcaine and 40 mg of Kenalog are injected into the right shoulder using the lat eral approach. Anterior approach was first tried but unable to get adequate landmarks to be able to do the injection properly. She tolerated the procedure well and no complications w ere encountered. No results found for this or any previous visit (from the past 24 hour(s)). Assessment/Plan: Donna was seen today for shoulder pain. Diagnoses and all orders for this visit: Thumb tendonitis Tendonitis of shoulder, left Patient is advised to do no heavy lifting for any is activity using the left shoulder for t he next 2 weeks. She is given a thumb spica splint to use during the next 2 weeks and is to take ibuprofen up to 600 mg 4 times daily for the pain for the next 2 weeks. She should be rechecked in 2 weeks. We will be on job restriction of no repetitive grasping and lifting using the right hand and no heavy lifting using the upper extremity over 15 pounds. Return in about 2 weeks (around 06/19/2019), or if symptoms worsen or fail to improve.Electr onically signed by Murray Domingo MD at 06/05/2019 8:16 PM PSTdocumented in this encounte r Plan of Treatment Not on filedocumented as of this encounter Visit Diagnoses + + | Diagnosis | + + | Thumb tendonitis - Primary Other tenosynovitis of hand and wrist | + + | Tendonitis of shoulder, left Disorders of bursae and tendons in shoulder region, | | unspecified | + + documented in this encounter
--- OUTSIDE RECORDS SUMMARY | ~2019-10-30 | XMS | Encounter Summary ---
Demographics + + + | Address | [address] | | | [place] [address] | + + + | Home Phone | | + + + | Preferred Language | Unknown | + + + | Marital Status | Single | + + + | Sabianist Affiliation | 1013 | + + + | Race | Unknown | + + + | Ethnic Group | Unknown | + + + Author + + + | Author | [facility] | | | and Johnana | + + + | Organization | [facility] | | | [...] | | | | | [place] [address] | | + + + + + | Ab Romykia | ECON | Unknown | | + + + + + Care Team Providers + +------+ + | Care Drum Reel Cutter Name | Role | Phone | + +------+ + PCP | Unavailable | + +------+ + Encounter Details +--------+ + + + + | Date | Type | Department | Care Team | Description | +--------+ + + + + | 06/20/ | Hospital | [facility] | Precious Parekh | | | 2011 - | Encounter | MED CTR EMERGENCY | MD Rebecca [address] | | | | | CENTER [address] | [facility], | | | 06/21/ | | [place] | [place] [address] | | | 2011 | | [address] | [phone] | | | | | [phone] | | | +--------+ + + + [...] - 1.030 | [facility] | | | [place], | | | [facility] | | [...] + + | Performing | Address | City/[facility] | Phone Number | | Organization | | | | + + + + + | [facility] | [address] | [place] | [phone] | | [facility] | | [address] | | | - LABORATORY | | | | + + + + + | [facility] | [address] | [place] | | | [facility] | | [id number] | | | - LABORATORY | | | | + + + + + documented in this encounter Visit Diagnoses Not on filedocumented in this encounter"
--- OUTSIDE RECORDS SUMMARY | ~2019-10-30 | XMS | Encounter Summary ---
Demographics + + + | Address | [address] | | | [place] [address] | + + + | Home Phone | | + + + | Preferred Language | Unknown | + + + | Marital Status | Single | + + + | Congregational Affiliation | 1013 | + + + | Race | Unknown | + + + | Ethnic Group | Unknown | + + + Author + + + | Author | [facility] | | | and Johnana | + + + | Organization | [facility] | | | [...] | | | | | [place] [address] | | + + + + + | Absweta Bunch | ECON | Unknown | | + + + + + Care Team Providers + +------+ + | Care Campus Security Director Name | Role | Phone | [...] | +--------+ + + + + | 12/16/ | Telephone | [facility] | Pj Abdi, | Back Pain | | 2017 | | [facility] | [address] | | | | | [address] | [place] | | | | | [place] | [address] | | | | | [address] | | | | | | [phone] | | | +--------+ + + + [...]
--- OUTSIDE RECORDS SUMMARY | ~2019-10-30 | XMS | Encounter Summary ---
Demographics + + + | Address | [address] | | | [place] [address] | + + + | Home Phone [...] | | | | | [place] [address] | | + + + + + | Ab Romykia | ECON | Unknown | | + + + + + Care Team Providers + +------+ + | Care Stockholder Name | Role | Phone | + +------+ + PCP | Unavailable | + +------+ + Encounter Details +--------+ + + + + | Date | Type | Department | Care Team | Description | +--------+ + + + + | 07/10/ | Hospital | [facility] | [place], | | | 2008 | Encounter | MED CTR EMERGENCY | Mike Yarbrough MD [address] | | | | CENTER [address] | [address] | | | | | [place], [place] | [place] [address] | | | | | [address] | [phone] | | | | | [phone] | | | +--------+ + + + [...]
--- OUTSIDE RECORDS SUMMARY | ~2019-10-30 | XMS | Encounter Summary ---
Demographics + + + | Address | [address] | | | [place] [address] | + + + | Home Phone | | + + + | Preferred Language | Unknown | + + + | Marital Status | Single | + + + | Jain Affiliation | 1013 | + + + | Race | Unknown | + + + | Ethnic Group | Unknown | + + + Author + + + | Author | [facility] | | | and [place]ana | + + + | Organization | [facility] | | | [...] [place] | | | | | [place] [address] | | + + + + + | Ab Bunch | ECON | Unknown | | + + + + + Care Team Providers + +------+ + | Care Tracer Lathe Set Up Operator Name | Role | Phone | [...] | | shoulder, | [address] | | | | | subsequent | [address] | [place], | | | | | encounter | [place] | [place] | | | | | Work related | [place] | [address] | | | | | injury | [address] | Phone: | | | | | | Phone: | [phone] | | | | | | [phone] | Fax: | | | | | | Fax: | [phone] | | | | | | [phone] | | +--------+ + + + + [...] | | | | [place], [place] | [address] | injury | | | | [address] | | | | | | [phone] | | | +--------+ + + + [...] + +--------+ + + | Referral to [facility] | Outpatient | Routin | Strain [...]
--- OUTSIDE RECORDS SUMMARY | ~2019-10-30 | XMS | Encounter Summary ---
Demographics + + + | Address | [address] | | | [place] [address] | + + + | Home Phone | | + + + | Preferred Language | Unknown | + + + | Marital Status | Single | + + + | Jewish Affiliation | 1013 | + + + | Race | Unknown | + + + | Ethnic Group | Unknown | + + + Author + + + | Author | [facility] | | | and [place]ana | + + + | Organization | [facility] | | | [...] | | | | | [place] [address] | | + + + + + | Ab Romykia | ECON | Unknown | | + + + + + Care Team Providers + +------+ + | Care Hospital Medical Biller Name | Role | Phone | + [...] Description | +--------+--------+ + + + | 12/08/ | Refill | [facility] | Pj Abdi, | Medication Refill | | 2017 | | [facility] | [address] | | | | | [address] | [place] | | | | | [place] | [address] | | | | | [address] | | | | | | [phone] | | | +--------+--------+ + + + [...]
--- OUTSIDE RECORDS SUMMARY | ~2019-10-30 | XMS | Encounter Summary ---
Demographics + + + | Address | [address] | | | [place] [address] | + + + | Home Phone [...] | | | | | [place] [address] | | + + + + + | Ab Romykia | ECON | Unknown | | + + + + + Care Team Providers + +------+ + | Care Pattern Filer Name | Role | Phone | + [...] + | 02/21/ | Refill | [facility] | Pj Abdi, | Medication Refill | | 2016 | | MEDICINE [place] | [address] | | | | | [address] | [place] | | | | | [place] | [address] | | | | | [address] | | | | | | [phone] | | | +--------+--------+ + + + [...]
--- OUTSIDE RECORDS SUMMARY | ~2019-10-30 | XMS | Encounter Summary ---
Demographics + + + | Address | [address] | | | [place] [address] | + + + | Home Phone | | + + + | Preferred Language | Unknown | + + + | Marital Status | Single | + + + | Mormon Affiliation | 1013 | + + + [...] | | | | | [place] [address] | | + + + + + | Ab Bunch | ECON | Unknown | | + + + + + Care Team Providers + +------+ + | Care Application Support Developer Name | Role | Phone | + [...] | | | | [place] | [facility] [address] | | | | | [address] | [place] [address] | | | | | [phone] | [phone] | | +--------+ + + + + [...]
--- OUTSIDE RECORDS SUMMARY | ~2019-10-30 | XMS | Encounter Summary ---
Demographics + + + | Address | [address] | | | [place] [address] | + + + | Home Phone [...] | | | | | [place] [address] | | + + + + + | Ab Romykia | ECON | Unknown | | + + + + + Care Team Providers + +------+ + | Care Intermediate Project Manager Name | Role | Phone [...] + + + + | 12/28/ | Emergency | [facility] | Mike Isabel | Pelvic pain (Primary | | 2018 | | [facility] | Mukesh Ulloa MD | Dx) | | | | CENTER [address] | [address] | | | | | [place] | [place], [place] | | | | | [address] | [address] | | | | | [phone] | | | +--------+ + + + [...] + + + | Blood Pressure | 121/81 | 12/28/2017 4:07 AM | | | | | PDT | | + + + + + | Pulse | 71 | 12/28/2017 4:07 AM | | | | | PDT | | + + + + + | Temperature | 36.4 C (97.5 F) | 12/28/2017 1:00 AM | | | | | PDT | | + + + + + | Respiratory Rate | 18 | 12/28/2017 1:00 AM | | | | | PDT | | + + + + + | Oxygen Saturation | 98% | 12/28/2017 4:07 AM | | | | | PDT | | + + + + + | Inhaled Oxygen | - | - | | | Concentration | | | | + + + + + | Weight | 54.4 kg (120 lb) | 12/28/2017 1:00 AM | | | | | PDT | | + + + + + | Height | - | - | | + + + + + | Body Mass Index | 20.6 | 12/13/2017 12:35 AM | | | | | PDT | | + + + + + documented in this encounter Discharge Instructions Instructions Mike Isabel MD - 12/28/2017Please follow-up in medical clinic . Return for severe worsening symptoms. documented in [...] Follow package | 21 | 0 | 12/14/19 | | | (MEDROL DOSEPAK) 4 | directions. | tablet | | 18 | 8 | | mg tablet | | | [...] INFORMATION | CELSO | Routin | | 12/28/2017 12:34 AM | | EXCHANGE | | e | | PDT | + +------+--------+ + + documented as of this encounter Procedures + +--------+ + + + | Procedure Name | Priori | Date/Time | Associated Diagnosis | Comments | | | ty | | | | + +--------+ + + + | CT RENAL STONE WO | STAT | 12/28/2017 | | Results for this | | CONTRAST | | 2:54 AM | | procedure are in the | | | | PDT | | results section. | + +--------+ + + + | POCT URINALYSIS, | STAT | 12/28/2017 | | Results for this | | AUTO WITH CONF | | 1:52 AM | | procedure are in the | | | | PDT | | results section. | + +--------+ + + + | POCT TEST, | STAT | 12/28/2017 | | Results for this | | URINE, QUAL | | 1:51 AM | | procedure are in the | | | | PDT | | results section. | + +--------+ + + + | ED INFORMATION | Routin | 12/28/2017 | | | | EXCHANGE | e | 12:34 AM | | | | | | PDT | | | + +--------+ + + + +---+--------+ | | | | | Proced | | | ure | | | Note - | | | Thomas, | | | Lab In | | | | | | Hlseve | | | n - | | | | | | 2017 | | | 12:35 | | | AM PDT | | | | | | [...] | | | ON?08/ | | | 08 | | | 8 | | | 00:31? | | | SHAH | | | LSH, | | | SABRIN | | | A | | | K?MRN: | | | | | | [id number] | | | [id number] | | | his | | | [...] | | | ent/a9 | | | [id number] | | | -[id number] | | | [...] | | int | | | Aug 8, | | [...] | | | Center | | | 9 0 | | | Total | | | 9 0 | | | Note: | | [...] | | II-V | | | Rx 8 | | | CS-II | | | Rx 7 | | | Quanti | | | ty | | | Dispen | | | sed | | | 205 | | | Unique | | | | | | Prescr | | | ibers | | | 3 | | | Unique | | | [...] +---+--------+ documented in this encounter Results CT Renal Stone Wo Contrast (12/28/2017 2:54 AM PDT) + + | Specimen | + + | | + + + + + | Narrative | Performed At | + + + | EXAM: CT RENAL STONE WO CONTRAST dated 12/28/2017 2:54 AM | [facility] | | HISTORY:ABDOMINAL PAIN Comparison: August 08, 2016. TECHNIQUE: | | | Imaging is performed from the mid liver through the pubic symphysis | | | without contrast. DOSE: DLP 106.83 mGy-cm FINDINGS: | | | LUNG BASES: The visible lower lungs are clear. LIVER: The visible | | | unenhanced liver is unremarkable. GALLBLADDER: The gallbladder is | | | not distended. There are no calcified gallstones. The bile ducts | | | are not well seen. SPLEEN: The visible unenhanced spleen is | | | unremarkable. PANCREAS: The unenhanced pancreas is | | | unremarkable. No peripancreatic inflammatory change. ADRENALS: | | | No adrenal enlargement. No adrenal masses. KIDNEYS: The kidneys | | | are unremarkable in attenuation. There are no visible focal renal | | | lesions. There is no nephrolithiasis. There is no obstructive | | | uropathy. BOWEL: The gastrointestinal tract is unremarkable. | | | There is no evidence for gastrointestinal tract obstruction. | | | There is no evidence for appendicitis. There is no significant | | | diverticular disease. VASCULATURE AND LYMPH NODES: There is no | | | aneurysmal dilatation of the abdominal aorta. There is no pelvic or | | | abdominal lymphadenopathy. BLADDER: The bladder is decompressed | | | and not well evaluated. UTERUS AND ADNEXA:The uterus and adnexa | | | are unremarkable. BONES: There are no acute osseous abnormalities. | | | There are no lytic or blastic bone lesions. There is lumbosacral | | | transitional anatomy. There is a right-sided lumbosacral | | | pseudoarthrosis. Mild rightward curvature may be positional or | | | scoliosis. There are small Schmorl's nodes at T11-T12. OTHER: | | | There is no free fluid. There is no free air. IMPRESSION - | | | No CT evidence for an acute abdominal or pelvic process. No | | | nephrolithiasis or evidence of an obstructive uropathy. | | | Transitional lumbosacral anatomy with a left-sided lumbosacral | | | pseudoarthrosis. The preliminary report is provided by Dr. Cho | | | on December 28, 2017 at 7:27 AM Dictated and Signed by: Nikko Odonnell | | | MD Krishan Electronically signed: 12/28/2017 9:30 AM | | + + + + + | Procedure Note | + + | Thomas, Rad Results In - 12/28/2017 9:33 AM PDT EXAM: CT RENAL STONE WO CONTRAST dated | | 12/28/2017 2:54 AMHISTORY:ABDOMINAL PAINComparison: August 08, 2016.TECHNIQUE: Imaging is | | performed from the mid liver through the pubic symphysiswithout contrast.DOSE: DLP | | 106.83 mGy-cmFINDINGS: LUNG BASES: The visible lower lungs are clear.LIVER: The visible | | unenhanced liver is unremarkable.GALLBLADDER: The gallbladder is not distended. There | | are no calcifiedgallstones. The bile ducts are not well seen.SPLEEN: The visible | | unenhanced spleen is unremarkable. PANCREAS: The unenhanced pancreas is unremarkable. | | No peripancreaticinflammatory change.ADRENALS: No adrenal enlargement. No adrenal | | masses.KIDNEYS: The kidneys are unremarkable in attenuation. There are no visiblefocal | | renal lesions. There is no nephrolithiasis. There is no obstructiveuropathy.BOWEL: The | | gastrointestinal tract is unremarkable. There is no evidence forgastrointestinal tract | | obstruction. There is no evidence for appendicitis. There is no significant | | diverticular disease.VASCULATURE AND LYMPH NODES: There is no aneurysmal dilatation of | | the abdominalaorta. There is no pelvic or abdominal lymphadenopathy.BLADDER: The | | bladder is decompressed and not well evaluated.UTERUS AND ADNEXA:The uterus and adnexa | | are unremarkable.BONES: There are no acute osseous abnormalities. There are no lytic or | | blasticbone lesions. There is lumbosacral transitional anatomy. There is aright-sided | | lumbosacral pseudoarthrosis. Mild rightward curvature may bepositional or scoliosis. | | There are small Schmorl's nodes at T11-T12.OTHER: There is no free fluid. There is no | | free air.IMPRESSION - No CT evidence for an acute abdominal or pelvic process.No | | nephrolithiasis or evidence of an obstructive uropathy.Transitional lumbosacral anatomy | | with a left-sided lumbosacral pseudoarthrosis.The preliminary report is provided by | | Tammie on December 28, 2017 at 7:27 AMDictated and Signed by: Nikko Nickerson MD | | Electronically signed: 12/28/2017 9:30 AM | | | |ADRENALS: No adrenal enlargement. No adrenal masses. | | | |KIDNEYS: The kidneys are unremarkable in attenuation. There are no visible | |focal renal lesions. There is no nephrolithiasis. There is no obstructive | |uropathy. | | | |BOWEL: The gastrointestinal tract is unremarkable. There is no evidence for | |gastrointestinal tract obstruction. There is no evidence for appendicitis. | |There is no significant diverticular disease. | | | |VASCULATURE AND LYMPH NODES: There is no aneurysmal dilatation of the abdominal | |aorta. There is no pelvic or abdominal lymphadenopathy. | | | |BLADDER: The bladder is decompressed and not well evaluated. | | | |UTERUS AND ADNEXA:The uterus and adnexa are unremarkable. | | | |BONES: There are no acute osseous abnormalities. There are no lytic or blastic | |bone lesions. There is lumbosacral transitional anatomy. There is a | |right-sided lumbosacral pseudoarthrosis. Mild rightward curvature may be | |positional or scoliosis. There are small Schmorl's nodes at T11-T12. | | | |OTHER: There is no free fluid. There is no free air. | | | |IMPRESSION - | | | |No CT evidence for an acute abdominal or pelvic process. | | | |No nephrolithiasis or evidence of an obstructive uropathy. | | | |Transitional lumbosacral anatomy with a left-sided lumbosacral pseudoarthrosis. | | | |The preliminary report is provided by Dr. Cho on December 28, 2017 at 7:27 AM | | | |Dictated and Signed by: Nikko Nickerson MD | | Electronically signed: 12/28/2017 9:30 AM | + + + +---------+ + + | Performing | Address | City/State/Zipcode | Phone Number | | Organization | | | | + +---------+ + + | [facility] | | | | + +---------+ + + POCT Urinalysis Dipstick Automated (12/28/2017 1:52 AM PDT) + + + + + [...] + + + + | Specific | 1.005Comment: less than | 1.001 - 1.030 | | | | [place], | | | | | | UA, [...] + + + | Urobilinoge | 0.2 mg/dL | 0.2, Negative, | | | | [...] + | Urine | + + POCT Test, Urine, QUAL (12/28/2017 1:51 AM PDT) + + + + + [...] | 1.010, 1.015, | | | | [place], | | 1.020, 1.025 | | | | POC | | | | | + + + + + + | Lot Number | [id number] | | | | + + + + + + | Expiration | 05/01/2019 | | | | | Date | [...] | | | + +--------+ +--------+------+------+ | aluminum & magnesium | Given | 12/29/19 | 30 mLs | | | | hydroxide-simethicone (MAALOX | | 18 2:40 | | | | | PLUS REGULAR STRENGTH) 200-200-20 | | AM PDT | | | | | mg/5 mL suspension 30 mL 30 mL, | | | | | | | Oral, ONCE, Tue12/28/17 at 0200, | | | | | | | For 1 dose, Mix lidocaine and | | | | | | | Maalox. Shake well., | | | | | | + +--------+ +--------+------+------+ + +---+ | | | + +---+ | HYDROcodone-acetaminophen | | | (NORCO) 5-325 mg per tablet (ER | | | Prepack) 1-2 tablet 1-2 tablet, | | | Oral, EVERY 6 HOURS PRN, pain, | | | Starting Tue12/28/17 at 0407, | | | Patient Address: [address] [place] [address], | | | [facility] [address], | | + +---+ | | | + +---+ + +-------+ +--------+---+---+ | lidocaine (XYLOCAINE) 2% | Given | 12/29/19 | 10 mLs | | | | viscous solution 10 mL 10 mL, | | 18 2:40 | | | | | Oral, ONCE, Tue12/28/17 at 0200, | | AM PDT | | | | | For 1 dose, Mix lidocaine and | | | | | | | MAALOX. Shake well., | | | | | | + +-------+ +--------+---+---+ + +---+ | | | + +---+ | ondansetron (ZOFRAN ODT) | | | disintegrating tablet (ED | | | homepack) 4 mg 4 mg, Oral, EVERY | | | 6 HOURS PRN, Nausea, Starting | | | Tue12/28/17 at 0350 | | + +---+ | | | + +---+ + +-------+ +--------+---+---+ | traMADol (ULTRAM) tablet 100 mg | Given | 12/29/19 | 100 mg | | | | 100 mg, Oral, ONCE, Tue12/28/17 | | 18 1:44 | | | | | at 0130, For 1 dose | | AM PDT | | | | + +-------+ +--------+---+---+ +---+---+ | | | +---+---+ documented in this encounter"
--- OUTSIDE RECORDS SUMMARY | ~2019-10-30 | XMS | Encounter Summary ---
Demographics + + + | Address | [address] | | | [place] [address] | + + + | Home Phone | | + + + | Preferred Language | Unknown | + + + | Marital Status | Single | + + + | Gnosticism Affiliation | 1013 | + + + [...] | | | | | [place] [address] | | + + + + + | Ab Romykia | ECON | Unknown | | + + + + + Care Team Providers + +------+ + | Care Toddler Teacher Name | Role | Phone | [...] + + | 07/18/ | Emergency | [facility] | Jeannette, | Suicide attempt | | 2018 | | [facility] | Mike Yarbrough MD [address] | (Primary Dx); | | | | CENTER [address] | [address] [facility] | Abrasion of neck, | | | | [place], [place] | [place] [address] | initial encounter | | | | [address] | [phone] | | | | | [phone] | | | +--------+ + + + [...] drink alcohol or use drugs 3. Call [facility] at [phone] or return to the ER if you feel suicidal, homicidal o r unsafe [facility] has walk-in intake hours at their main office at [address] [place] [address]. They have two appointments at 8:30am and [...] K?MRN: | | | | | | [id number] | | | [id number] | | | his | | | [...] | | | ent/a9 | | | [id number] | | | [id number] | | | [...] | | | ncy | | | CABLE TELEVISION LINE TECHNICIAN | | | Cesar | | | [...] - 1.030 | [facility] | | | [place], | | | [facility] | | [...] [address] | [place] | [phone] | | [facility] | | [address] | | | - LABORATORY | | [...] [address] | [place] | [phone] | | [facility] | | [address] | | | - LABORATORY | | [...] [address] | [place] | [phone] | | [facility] | | [address] | | | - LABORATORY | | [...] ST. | [address] | [place] | [phone] | | [facility] | | [address] | | | - LABORATORY | | [...] [address] | [place] | [phone] | | [facility] | | [address] | | | - LABORATORY | | [...] | mL/min/1.73m2 | [facility] | | | [place] | RATE,ESTIMATED | | MEDICAL | | | | mL/min/1.10o8Ovkr than | | CENTER - | | [...] 4.4 | 3.2 - 5.0 g/dL | [facility] | | | | | | [facility] | | | | | | MEDICAL [...] [address] | [place] | [phone] | | [facility] | | [address] | | | - LABORATORY | | [...] | | Basophils | | K/uL | [facility] | | | | | | MEDICAL [...] [address] | [place] | [phone] | | [facility] | | [address] | | | - LABORATORY | | [...] [address] | [place] | [phone] | | [facility] | | [address] | | | - LABORATORY | | [...] ST. | [address] | [place], [place] | [phone] | | [facility] | | [address] | | | - LABORATORY | | [...] + | [facility] | [address] | [place] | [phone] | | [facility] | | [address] | | | - LABORATORY | | [...] [address] | [place] | [phone] | | [facility] | | [address] | | | - LABORATORY | | [...]
--- OUTSIDE RECORDS SUMMARY | ~2019-10-30 | XMS | Encounter Summary ---
Demographics + + + | Address | [address] | | | [place] [address] | + + + | Home Phone | | + + + | Preferred Language | Unknown | + + + | Marital Status | Single | + + + | Rastafari Affiliation | 1013 | + + + | Race | Unknown | + + + | Ethnic Group | Unknown | + + + Author + + + | Author | [facility] | | | and Johnana | + + + | Organization | [facility] | | [...] | | | | | [place] [address] | | + + + + + | Ab Romykia | ECON | Unknown | | + + + + + Care Team Providers + +------+ + | Care Licensed Tax Consultant Name | Role | Phone | + +------+ + | Charles Allen MD | PCP | | + +------+ + Reason for Visit + + + | Reason | Comments | + + + | Initial Assessment | | + + + Evaluate & Treat [...] | Work | [address] | | | | | related | [place] | | | | | injury | [place] | [address] Phone: | | | | | Procedures | [address] | [phone] | | | | | L&I | Phone: | Fax: | | | | | | [phone] | [phone] | | | | | | Fax: | | | | | | | [phone] | | +--------+ + + + + + Encounter Details +--------+---------+ + + + | Date | Type | Department | Care Team | Description | +--------+---------+ + + + | 07/17/ | Office | [facility] | Ta Salcedo | Right wrist pain | | 2020 | Visit | [facility] | J, PT [address] | | | | [address] | [address] [place] | | | | | [place] | [address] | | | | | [address] | | | | | | [phone] | | | +--------+---------+ + + + [...] encounter Progress Notes Ta Salcedo, PT - 07/17/2019 4:30 PM PST Physical Therapy Initial Evaluation Plan of Care Date: 07/19/2019 Patient Name: Donna Camarena Date of : 1995 Encounter Diagnoses Code Name Primary? M25.531 Right wrist pain Date of Onset: 06/04/2019 Start of Care Date: 07/17/2019 Requested # of Visits: 12 visits 2x/week for 6 weeks Certification From: 07/17/2019 Certification To: 08/28/2019 Clinical Impression: Patient presents to physical therapy with complaints of right wrist a nd left shoulder pain following a work related injury sustained on 06/04/2019. She states sh e was attempting to catch a steel tub that was slipping and strained her right wrist or left shoulder. 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 She did note today during her treatment she had been dismissed from her [employer] and is no longer employed there. Signs and symptoms are consist ent with right wrist strain. Complexities contributing to frequency and duration of therapy : Multiple areas of involvement. Goals: Patient Reported Outcome Goals Patient Reported Outcome Goals: PSFS Patient Specific Functional Scale Goal 1: patient will be able to work a full day with pain no greater than 2/10 Patient Specific Functional Scale Goal 1 Status: 4 Patient Specific Functional Scale Goal 2: Patient will be able to lift all work related alie ghts without pain Patient Specific Functional Scale Goal 2 Status: 4 Patient Specific Functional Scale Goal 3: Patient will be able to report at least a 25% inc rease in PRO Patient Specific Functional Scale Goal 3 Status: 0 Treatment Plan/Interventions PT EvaluationPT Re-Enryqolvjw14499 - Therapeutic Pgmthcqm38162 - Neuromuscular Reeducation9 7530 - Therapeutic Hefgpjurvl84630 - Manual Omcgnrw30828 - Self Care/Home Uxdunycxql15349 - Mkjaahgqcr26882/G0283 - Electrical Stimulation, Yvbbdgldje76417 - Vasopneumatic Rjkaavd72503 - Paraffin Bath Electronically signed by: Kei Salcedo PT, 07/19/2019 10:00 AM Patient Name: Donna Camarena/: 1995/ Ta Rock, PT - 07/17/2019 4:30 PM PSTFormatting of this note might be different from the orig inal. [facility] [address] [place] [id number] Physical Therapy Initial Shoulder Assessment Date: 07/17/2019 Patient Information Patient Name: Donna Camarena Date of : 1995 Age: 24 y.o. No problems updated. Mechanism of injury: Work related injury sustained on 06/04/2019. History of symptoms: Donna presents to Physical Therapy today for Initial Assessment Patient presents to physical therapy with complaints of right wrist and left shoulder pain following a work related injury sustained on 06/04/2019. She states she was attempting to ca tch a steel tub that was slipping and strained her right wrist or left shoulder. 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 She did note today during her treatment she had been dismissed from [employer] and is no longer employed there. Signs and symptoms are consistent with right wrist s train. Complexities contributing to frequency and duration of therapy: Multiple areas of in volvement. Imaging: Unremarkable Occupation and Hobbies: Did work for [employer] but was fired today Previous level of function and limitations: Normal Work status:As above now unemployed Living situation: At home Social History Socioeconomic History Marital status: Single Spouse name: DOT CARD Number of children: 2 Years of education: G.E.D. 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 M25.531 Right wrist pain Date of Onset: 06/04/2019 Referring Provider: ANGEL Mart No history on file. Past Medical History: Diagnosis Date Anxiety Chronic low back pain 09/21/2016 DDD (degenerative disc disease), lumbar 09/21/2016 Depression Environmental allergies Facet arthritis of lumbar region 09/21/2016 PONV (postoperative nausea and vomiting) Scoliosis Wears dentures upper partial (has lower but doesn't wear) Past Surgical History: Procedure Laterality Date APPENDECTOMY 2011 Dr. Fernández; [facility] LAPAROSCOPY N/A 06/16/2015 Procedure: Diagnostic Laparoscopy laparoscopic ovarian drilling,right; Surgeon: Nikko Sánchez DO; Location: [facility] MAIN OR OVARIAN CYST REMOVAL 2011 Dr. Fernández; [facility] OVARIAN CYST REMOVAL 2014 Dr. Fernández; [facility] SALPINGO-OOPHORECTOMY Right 03/11/2016 Procedure: Laparoscopic R.S.O.; Surgeon: Nikko Sánchez DO; Location: [facility] MAIN OR STEFANO AND BSO Right 02/2016 right tube removed as well Family History Problem Relation Age of Onset No known problems Father Alcohol abuse Mother Mental illness Mother Cervical cancer Mother No known problems Paternal Grandfather No known problems Paternal Grandmother No known problems Maternal Grandfather No known problems Maternal Grandmother No known problems Child No known problems Child Developmental History Allergies Allergen Reactions Brompheniramine-Phenylephrine Hives and Rash Dimetapp Cold-Allergy Hives and Rash Meloxicam Hives, Anxiety and Rash Nortriptyline Other (See Comments) INEFFECTIVE Prior Treatment: None within the last sixty days Functional Limitations: Mild to moderate limitations Patient s Goals: Be able to work without increased pain OBJECTIVE: Observation/Posture/Alignment: Very distractable today, with no gross observable dysfunctio n ROM: Initial Assessment Progress Note / Discharge Cervical: Mild loss left rotation Shoulder: Left Left Flexion: 90 Abduction: 80 ER at neutral: WNL IR Behind Back: Noted restriction ER at 90 of ABD: IR at 90 of ABD: Elbow Flexion: full Elbow Extension: full Initial Eval PN/DC Right Right Ulnar Deviation 24 Radial Deviation 12 Wrist Flexion 50 Wrist Extension 62 Strength Testing: Initial Assessment Initial Assessment Progress Note / Discharge Progress Note / Discharge Left Right Left Right Spreader strength avg of 3 trials 20 24 Accessory Joint Mobility: No remarkable findings Palpation: Most of her pain is located in the anatomical snuff box and abductor pollicis longus Neurovascular: Intact Outcome Measure: Initial Assessment Progress Note / Discharge DASH: 61.36 /100% (A score of 0% = No Functional Disability of the UE) QuickDASH (QD) Open a tight or new jar: 3 - Moderate Difficulty Do heavy grazing examiner: 3 - Moderate Difficulty Carry a shopping bag or briefcase: 3 - Moderate Difficulty Wash your back: 5 - Unable Use a Knife to cut food: 1 - No Difficulty Recreational Activities which impact the UE: 3 - Moderate Difficulty Interfered with Social Activities: 4 - Quite a bit Limit Work or Regular Daily Activities: 4 - Very Limited Arm, shoulder or hand pain: 4 - Severe Tingling in arm, shoulder or hand: 4 - Severe Difficulty Sleeping due to pain in UE: 4 - Severe Difficulty QuickDASH Mean Score (Calculated): 3.45 QuickDASH Disability/Symptom Score (Calculated): 61.36 Assessment Patient presents to physical therapy with complaints of right wrist and left shoulder pain following a work related injury sustained on 06/04/2019. She states she was attempting to ca tch a steel tub that was slipping and strained her right wrist or left shoulder. 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 She did note today during her treatment she had been dismissed from [employer] and is no longer employed there. Signs and symptoms are consistent with right wrist s train. Complexities contributing to frequency and duration of therapy: Multiple areas of in volvement. Rehabilitation potential: Patient demonstrates good potential to achieve established goals to address the documented impairments by participating in skilled physical therapy services. Goals: Patient Reported Outcome Goals Patient Reported Outcome Goals: PSFS Patient Specific Functional Scale Goal 1: patient will be able to work a full day with pain no greater than 2/10 Patient Specific Functional Scale Goal 1 Status: 4 Patient Specific Functional Scale Goal 2: Patient will be able to lift all work related alie ghts without pain Patient Specific Functional Scale Goal 2 Status: 4 Patient Specific Functional Scale Goal 3: Patient will be able to report at least a 25% inc rease in PRO Patient Specific Functional Scale Goal 3 Status: 0 Plan Date of Onset: 06/04/2019 Start of Care Date: 07/17/2019 Requested # of Visits: 12 visits 2x/week for 6 weeks Certification From: 07/17/2019 Certification To: 08/28/2019 Treatment Plan/Interventions PT EvaluationPT Re-Flnjjyhbmn02694 - Therapeutic Xvlrjnav54484 - Neuromuscular Reeducation9 7530 - Therapeutic Mnxnhrqnru92288 - Manual Psfngga07789 - Self Care/Home Qifiigqzes23059 - Eopqcguqeq27647/G0283 - Electrical Stimulation, Qjynjoqlyt23187 - Vasopneumatic Jdbysli37358 - Paraffin Bath Patient and/or family has indicated understanding of treatment needs and actively participa meggan in the creation of this plan for care. Today's Treatment Start Time: 1630 Stop time: 1710 Duration: 40 minutes Timed Treatment Codes: 15 minutes # of PT Visits: 1 Objective: Education of rehab timeline, focus and expectations. Education of pain modulation with use of ice/MHP, positioning, pacing and movement strategies for self care. Treatment today consisted of evaluation (30 min) followed by Kinesiotaping of the right wri st for stability (10 min) Next Visit: - Assess symptoms and see how patient felt after previous visit. Adjust daily t reatment based on current patient symptoms and clinical presentation. Electronically signed by: Kei Salcedo, PT, 07/19/2019 10:00 AM Patient Name: Donna Camarena/: 1995/ lly signed by Ta Salcedo PT at 07/19/2019 10:01 AM PSTdocumented in this encounter Plan of Treatment Not on filedocumented as of this encounter Visit Diagnoses + + | Diagnosis | + + | Right wrist pain Pain in joint, forearm | + + documented in this encounter"
--- OUTSIDE RECORDS SUMMARY | ~2019-10-30 | XMS | Encounter Summary ---
Demographics + + + | Address | [address] | | | [place] [address] | + + + | Home Phone [...] | Author | [facility] | | | and Johnana | + + + | Organization | [facility] | | | and [...] | | | | | [place] [address] | | + + + + + | Ab Bunch | ECON | Unknown | | + + + + + Care Team Providers + +------+ + | Care Glassware Selector Name | Role | Phone | + +------+ + | Pj Abdi MD | PCP | | + +------+ + Reason for Visit + + + | Reason | Comments | + + + | Medication Prior | Oxybutynin Chloride ER | | Authorization | | + + + Encounter Details +--------+ + + + + | Date | Type | Department | Care Team | Description | +--------+ + + + + | 07/12/ | Telephone | [facility] | Pj Abdi, | Medication Prior | | 2018 | | [facility] | [address] | Authorization | | | | [address] | [place] | (Oxybutynin Chloride | | | | [place] | [address] | ER) | | | | [address] | | | | | | [phone] | | | +--------+ + + + [...]
--- OUTSIDE RECORDS SUMMARY | ~2019-10-30 | XMS | Encounter Summary ---
Demographics + + + | Address | [address] | | | [place] [address] | + + + | Home Phone [...] | | | | | [place] [address] | | + + + + + | Ab Romykia | ECON | Unknown | | + + + + + Care Team Providers + +------+ + | Care Business Account Manager Name | Role | Phone [...] + + | 10/05/ | Emergency | [facility] | Mike Isabel | Right lower quadrant | | 2016 - | | [facility] | Mukesh Ulloa MD | abdominal pain | | | | CENTER [address] | [address] | (Primary Dx) | | 10/06/ | | [place] | [place] | | | 2015 | | [address] | [address] | | | | | [phone] | | | +--------+ + + + [...] documented in this encounter Discharge Instructions Instructions FahaddominiqueEstefany goodrich, RN - 10/07/2015Please follow-up with her [...] | | preliminary report was sent by [facility] on 10/07/2015 at 2:10 AM | | [...] | hemangioma.A preliminary report was sent by [facility] on 10/07/2015 at 2:10 AM with | [...] | |A preliminary report was sent by [facility] on 10/07/2015 at 2:10 AM with no [...] | 1.010, 1.015, | | | | [place], | | 1.020, 1.025 | | | | POC | | | | | + + + + + + | Lot Number | [id number] | | | | + + + [...] - 1.030 | [facility] | | | [place], | | | [facility] | | [...] [address] | [place] | [phone] | | [facility] | | [address] | | | - LABORATORY | | [...] [address] | [place] | [phone] | | [facility] | | [address] | | | - LABORATORY | | [...] mL/min/1.73m2 | [facility] | | | [place] | RATE,ESTIMATED | | MEDICAL | | | | mL/min/1.22p8Fnmi than | | CENTER - | | [...] + | [facility] | [address] | [place] | [phone] | | [facility] | | [address] | | | - LABORATORY | | [...] + | [address] | [address] | [place] | [phone] | | [facility] | | [address] | | | - LABORATORY | | [...] + | [address] | [address] | [place] | [phone] | | [facility] | | [address] | | | - LABORATORY | | [...] [address] | [place] | [phone] | | [facility] | | [address] | | | - LABORATORY | | [...] + | [facility] | [address] | [place] | [phone] | | [facility] | | [address] | | | - LABORATORY | | [...] [address] | [place] | [phone] | | [facility] | | [address] | | | - LABORATORY | | [...] + | [facility] | [address] | [place] | [phone] | | [facility] | | [address] | | | - LABORATORY | | [...]
--- OUTSIDE RECORDS SUMMARY | ~2019-10-30 | XMS | Encounter Summary ---
Demographics + + + | Address | [address] | | | [place] [address] | + + + | Home Phone [...] | | | | | [place] [address] | | + + + + + | Ab Romykia | ECON | Unknown | | + + + + + Care Team Providers + +------+ + | Care Photographic Process Attendant Name | Role | Phone | + +------+ + PCP | Unavailable | + +------+ + Encounter Details +--------+ + + + + | Date | Type | Department | Care Team | Description | +--------+ + + + + | 06/05/ | Hospital | [facility] | | | | 2010 | Encounter | [facility] | | | | | | [facility] [address] | | | | | | [place], | | | | | | [place] [address] | | | | | | [phone] | | | +--------+ + + + [...]
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
--- OUTSIDE RECORDS SUMMARY | ~2019-10-30 | XMS | Encounter Summary ---
Demographics + + + | Address | [address] | | | [place] [address] | + + + | Home Phone [...] | + + + + + | sIma Hogan | ECON | [address] | | | | | [place] [address] | | + + + + + | Ab Romykia | ECON | Unknown | | + + + + + Care Team Providers + +------+ + | Care Housekeeping Room Attendant Name | Role | Phone | + +------+ + PCP | Unavailable | + +------+ + Encounter Details +--------+ + + + + | Date | Type | Department | Care Team | Description | +--------+ + + + + | 04/13/ | Hospital | [facility] | IzabellaPrecious | | | 2008 | Encounter | [facility] | MD Rebecca [address] | | | | | CENTER [address] | [place], | | | | | [place], [place] | [place] [address] | | | | | [address] | [phone] | | | | | [phone] | | | +--------+ + + + [...]
--- OUTSIDE RECORDS SUMMARY | ~2019-10-30 | XMS | Encounter Summary ---
Demographics + + + | Address | [address] | | | [place] [address] | + + + | Home Phone | | + + + | Preferred Language | Unknown | + + + | Marital Status | Single | + + + | Restorationism Affiliation | 1013 | + + + | Race | Unknown | + + + | Ethnic Group | Unknown | + + + Author + + + | Author | [facility] | | | and Johnana | + + + | Organization | [facility] | | | [...] | | | | | [place] [address] | | + + + + + | Ab Bunch | ECON | Unknown | | + + + + + Care Team Providers + +------+ + | Care Account Officer Name | Role | Phone | + [...] Hematuria | | 2017 | | MED[facility] [place] | [address] | | | | | [address] | [place] | | | | | [place], [place] | [address] | | | | | [address] | | | | | | [phone] | | | +--------+ + + + [...] - 1.030 | [facility] | | | [place], | | | [facility] | | [...] [address] | [place] | [phone] | | [facility] | | [address] | | | - LABORATORY | | | | + + + + + documented in this encounter Visit Diagnoses + + | Diagnosis | + + | Hematuria Hematuria, unspecified | + + documented in this encounter"
--- OUTSIDE RECORDS SUMMARY | ~2019-10-30 | XMS | Encounter Summary ---
Demographics + + + | Address | [address] | | | [place] [address] | + + + | Home Phone [...] | | | | | [place] [address] | | + + + + + | Ab Romykia | ECON | Unknown | | + + + + + Care Team Providers + +------+ + | Care Drama Director Name | Role | Phone | + +------+ + | Pj bAdi MD | PCP | | + +------+ + Reason for Visit + + + | Reason | Comments | + + + | Missed Visit | | + + + Encounter Details +--------+ + + + + | Date | Type | Department | Care Team | Description | +--------+ + + + + | 08/03/ | Telephone | [facility] | jP Abdi, | Missed Visit | | 2018 | | MEDICINE [place] | [address] | | | | | [address] | [place] | | | | | [place] | [address] | | | | | [address] | | | | | | [phone] | | | +--------+ + + + [...]
--- OUTSIDE RECORDS SUMMARY | ~2019-10-30 | XMS | Encounter Summary ---
Demographics + + + | Address | [address] | | | [place] [address] | + + + | Home Phone [...] Author + + + | Author | [facility] | | | and Johnana | + + + | Organization | [facility] | | | [...] | | | | | [place] [address] | | + + + + + | Ab Bunch | ECON | Unknown | | + + + + + Care Team Providers + +------+ + | Care Padded Products Finisher Name | Role | Phone | + [...] | Specialty | Physical | Diagnoses | Allen, | [facility] | | | Services | Therapy / | Coracoid | [place], | Pt Op [address] | | | Required | Rehabilitatio | impingement | [employer] [address] | | | | n | of left | [address] | [place], | | | | | shoulder | [place], | [place] [address] | | | | | Sprain of | [place] [address] | Phone: | | | | | right wrist, | Phone: | [phone] | | | | | initial | [phone] | Fax: | | | | | encounter | Fax: | [phone] | | | | | M75.42 | [phone] | | | | | | (ICD-10-CM) | | | | | | | - 726.2 | | | | | | | (ICD-9-CM) - | | | | | | | Coracoid | | | | | | | impingement | | | | | | | of left | | | | | | | shoulder | | | | | | | Procedures | | | | | | | pt eval | | | +--------+ + + + + + Reason for Visit + + + | Reason | Comments | + + + | Shoulder Pain | | + + + | Wrist Pain | | + + + Encounter Details +--------+---------+ + + + | Date | Type | Department | Care Team | Description | +--------+---------+ + + + | 04/05/ | Office | [facility] | Herber Allen, | Impingement syndrome | | 2017 | Visit | [facility] [place] | [employer] ANALY[employer] [address] | of left shoulder | | | | [address] | [place] | (Primary Dx); Sprain | | | | [place] | [address] | of right wrist, | | | | [address] | | initial encounter | | | | [phone] | | | +--------+---------+ + + + [...] + + + | Blood Pressure | 124/68 | 04/05/2017 2:58 PM | | | | | PST | | + + + + + | Pulse | 106 | 04/05/2017 2:58 PM | | | | | PST | | + + + + + | Temperature | 36.6 C (97.9 F) | 04/05/2017 2:58 PM | | | | | PST | | + + + + + | Respiratory Rate | 18 | 04/05/2017 2:58 PM | | | | | PST | | + + + + + | Oxygen Saturation | 97% | 04/05/2017 2:58 PM | | | | | PST | | + + + + + | Inhaled Oxygen | - | - | | | Concentration | | | | + + + + + | Weight | 60 kg (132 lb 4.4 | 04/05/2017 2:58 PM | | | | oz) | PST | | + + + + + | Height | - | - | | + + + + + | Body Mass Index | 22.01 | 03/29/2017 2:37 PM | | | | | PST | | + + + + + documented in this encounter Patient Instructions Patient Instructions Herber Allen ARNP - 04/05/2017 3:31 PM PST Understanding a Wrist Sprain A ligament is a strong band of tissue that connects bone to bone. The wrist has many ligame nts. If any of these get stretched or torn, this is called a wrist sprain. A wrist sprain ca n be painful. It can also limit movement and use of the wrist and hand. Depending on the sev erity of the sprain, it may take a few weeks or longer for the wrist to heal. Causes of a wrist sprain Wrist sprains are most often caused by falling and landing on an outstretched hand. Anyone can get a wrist sprain. But the injury may be more likely in people who are very active or p lay sports. Symptoms of a wrist sprain At the time of injury, you may feel a popping or tearing in the wrist. You may have pain, r edness, and swelling. You may also have some bruising. In some cases, symptoms may spread fr om the wrist to the hand. Until the wrist has healed, it may be hard to move or use the wris t and hand for normal tasks and activities, especially gripping and lifting. Treating a wrist sprain Treatment for wrist sprains may include any of the following: Prescription or ecsl-gnm-[id number] medicines. These help reduce pain and swelling. A splint, brace, or cast. This is worn to support the wrist and keep the wrist from movi ng. You may need it for several weeks or longer, until the wrist heals. Physical therapy and exercises. These help improve strength, flexibility, and range of m otion in the wrist and hand. Surgery. You may need surgery if the sprain is severe. For example, if the ligament is t orn or if nearby tissues and bone are also injured. After surgery, you will often need to we ar a splint or cast for a month or longer, until the wrist has healed. Self-care measures You can do several things to help relieve pain and swelling. These may include: Limiting how much you move and use your wrist and hand Applying an ice pack to the injured area Keeping your wrist and hand raised (elevated) above heart level Wrapping your wrist in an elastic bandage Possible complications If the injury doesn t heal properly, it has a higher chance of happening again. The injur y can also become long-term (chronic). This can cause ongoing pain, weakness, or instability of the wrist. Over time, arthritis may develop in the wrist. This can worsen pain and cause stiffness and limited movement of the wrist and hand. When to call your healthcare provider Call your healthcare provider right away if you have any of these: Fever of 100.4F (38C) or higher, or as directed Symptoms that don t get better with treatment, or get worse Hand or fingers that feel numb or very cold, turn blue or powers, or swell Symptoms such as redness, warmth, swelling, bleeding, or drainage that occur at the inci shawna sites. This only applies if you had surgery. New symptoms Date Last Reviewed: 07/31/201519993472-1352 [employer]. [address] [place] [address]. All righ ts reserved. This information is not intended as a substitute for professional medical care. Always follow your healthcare professional's instructions. Shoulder Impingement Syndrome The rotator cuff is a group of muscles and tendons that surround the shoulder joint. These muscles and tendons hold the arm in its joint. They help the shoulder move. The rotator cuff muscles and tendons can become irritated from repeated rubbing against the shoulder bone. T his is called shoulder impingement syndrome or rotator cuff tendonitis. If your case is mild, you may only need to rest the shoulder and then do certain exercises to strengthen the muscles. You can also take anti-inflammatory medicines. Steroid injections into the shoulder can ease inflammation. But you can have only a limited number of these. I f the condition gets worse, your shoulder muscles may become thin and weak. This can lead to a rotator cuff tear. Symptoms of shoulder impingement syndrome may include: Shoulder pain that gets worse when you raise your arm overhead Weakness of the shoulder muscles when you use your arm overhead Popping and clicking when you move your shoulder Shoulder pain that wakes you up at night, especially when you sleep on the affected shou lder Sudden pain in your shoulder when you lift or reach Home care Follow these tips to take care of yourself at home: Avoid activities that make your pain worse. These include raising your arms overhead, re peating the same motion over and over, or lifting heavy objects. Don t hold your arm in one position for a long time. Keep it moving. Put an ice pack on the sore area for 20 minutes every 1 to 2 hours for the first day. Yo u can make an ice pack by putting ice cubes in a plastic bag. Wrap the bag in a towel before putting it on your shoulder. A frozen bag of peas or something similar can also be used as an ice pack. Use the ice packs 3 to 4 times a day for the next 2 days. Continue using the ic e to relieve of pain and swelling as needed. You may take acetaminophen or ibuprofen to control pain, unless another medicine was pre scribed. If prednisone was prescribed, don t take anti-inflammatory medicines. If you have chronic liver or kidney disease or ever had a stomach ulcer or gastrointestinal bleeding, t alk with your doctor before using these medicines. After your symptoms ease, you may get physical therapy or start a home exercise program. This can strengthen your shoulder muscles and help your range of motion. Talk with your doc tor about what is best for your condition. Follow-up care Follow up with your healthcare provider, or as advised. When to seek medical advice Call your healthcare provider right away if any of these occur: Shoulder pain that gets worse and wakes you up at night Your shoulder or arm swells Numbness, tingling, or pain that travels down the arm to the hand Loss of shoulder strength Fever or chills Date Last Reviewed: 12/22/201519991587-5772 [employer]. [address] [place] [address], [place] [address]. All righ ts reserved. This information is not intended as a substitute for professional medical care. Always follow your healthcare professional's instructions. documented in this encounter Progress Notes Herber Allen ARNP - 04/05/2017 2:45 PM PSTFormatting of this note might be different fr om the original. Donna Camarena is a 21 y.o. female and patient of Pj Abdi MD Chief Complaint: Shoulder Pain and Wrist Pain HPI Shoulder pain : Left shoulder pain at ac joint more towards the front. States she feels shoulder is popping when trying to extend it. Only able to extend arm mildly. None injury that she can think of . Onset : 2 days ago. Pain level 5/10. Pain does not radiate. Describes pain as sharp, achin g. Denies numbness or tingling. Aggravating factors : certain movements, lifting. Relieving factors : None. She is on several medications Hydrocodone 5-325 mg, Tizanidine 4 mg, Naprox en 500 mg, Gabapentin 300 mg and states none of these meds have given her relief, ice packs, heating pad. Wrist pain : Reports right wrist pain that has been slowly worsening. Denies injury. Onset : 4 days ago. Describes pain as sharp. Denies numbness or tingling, weakness, coolness of fingers. Reliev ing factors : none. Has tried icing, heating pad, NSAID's, ROM with no relief. Aggravating f actors: making fist, twisting, flexing, extending, pressure. Pain level is 7/10 PREVENTIVE CARE/PRIOR VISITS Any recommendations from Health Maintenance: She will schedule pap smear. She declined flu vacc Preventative Services TOPIC LAST DONE NEXT DUE Vaccine: Influenza 01/21/2017 Cervical Cancer Screening (Pap Every 3 Years 21-64 ) 2014 Vaccine: Dtap/Tdap/Td 08/23/2013 08/24/2023 Vaccine: Hpv 11/30/2016 Vaccine: Pneumococcal 19-64 (Ppsv23 Only) Medium Risk 11/02/2016 Immunization History Administered Date(s) Administered HPV 9-VALENT RECOMB VACCINE IM 11/30/2016 HPV, QUADRIVALENT, 3 DOSE (ADOL/ADULT) 08/18/2011, 12/02/2011 PNEUMOCOCCAL POLYSACCHARIDE 23-VALENT (PPSV23) 11/02/2016 TDAP, (ADOL/ADULT) 08/23/2013 Allergies Allergen Reactions Dimetapp Cold-Allergy Hives and [...] has been changed since signin Order [facility] [place] HYDROcodone-acetaminophen (NORCO) 5-325 mg per tablet Starting on 04/09/2017. Take 1 table t by mouth every 6 hours as needed for Pain (for severe break through pain). Number of times this order has been changed since signin [facility] [place] hydrOXYzine hydrochloride (ATARAX) 25 mg tablet (Taking) TAKE TWO TABLETS EVERY SIX HOURS NEEDED FOR ANXIETY OR ITCHING Number of times this order has been changed since signin [facility] [place] naproxen (NAPROSYN) 500 mg tablet (Taking) TAKE ONE TABLET TWICE DAILY WITH BREAKFAST AND DINNER Number of times this order has been changed since signin [facility] [place] [facility] ondansetron (ZOFRAN ODT) 4 mg disintegrating tablet (Taking) DISSOLVE ONE TABLET UNDER TH E TONGUE EVERY EIGHT HOURS NEEDED FOR NAUSEA Number of times this order has been changed since signin [facility] [place] [facility] propranolol (INDERAL) 10 mg tablet (Taking) Take 1 tablet by mouth 2 times daily. Number of times this order has been changed since signin [facility] tiZANidine (ZANAFLEX) 4 mg tablet (Taking) Take 1 tablet by mouth every 6 hours as needed . Number of times this order has been changed since signin [facility] traZODone (DESYREL) 100 mg tablet (Taking) Take 0.5-1 tablet nightly as needed for sleep Number of times this order has been changed since signin [facility] venlafaxine (EFFEXOR XR) 150 mg 24 hr capsule (Taking) Take 1 capsule by mouth Daily. Number of times this order has been changed since signin [facility] [place] Past Medical History She has a past [...] 2 Years of education: G.E.D. Occupational History [employer] [facility] UNEMPLOYED Social History Main Topics Smoking status: Current Every Day Smoker Packs/day: 1.00 Years: 14.00 Types: Cigarettes Start date: 09/17/2009 Smokeless tobacco: Never Used Alcohol use 0.0 oz/week Comment: rarely Drug use: No Sexual activity: Yes Partners: Male control/ protection: Yes Comment: Norplant Other Topics Concern None Social History Narrative None Review of Systems See HPI. Objective: Vitals: 04/05/17 1458 BP: 124/68 Pulse: 106 Resp: 18 Temp: 36.6 C (97.9 F) TempSrc: Temporal SpO2: 97% Weight: 60 kg (132 lb 4.4 oz) Physical Exam Constitutional: She is oriented to person, place, and time. She appears well-developed and well-nourished. No distress. Patient's clothing is soiled, smells strongly of body odor. HENT: Head: Normocephalic and atraumatic. Poor dentition. Multiple caries. Eyes: Conjunctivae are normal. Cardiovascular: Normal rate, regular rhythm and normal heart sounds. No murmur heard. Pulmonary/Chest: No respiratory distress. She has no wheezes. She has no rales. Musculoskeletal: She exhibits no edema. Neurological: She is alert and oriented to person, place, and time. Reflex Scores: Bicep reflexes are 1+ on the right side and 1+ on the left side. Brachioradialis reflexes are 1+ on the left side. Skin: Skin is warm and dry. Psychiatric: She has a normal mood and affect. Her behavior is normal. Nursing note and vitals reviewed. Right Hand/Wrist Exam Tenderness The patient is experiencing tenderness in the dorsal area, radial area, pain and mild swell ing. Range of Motion Wrist Pronation: Abnormal Supination: Abnormal Flexion: Abnormal Extension: Abnormal Comments: Decreased Strength and ROM. Left Shoulder Exam Tenderness The patient is experiencing tenderness in the anterior shoulder. Range of Motion Active Abduction: 80 Passive Abduction: Normal Extension: Normal Muscle Strength Normal left shoulder strength Tests Rios: Positive Cross Arm: Positive Drop Arm: Negative Right Shoulder Exam Tenderness None Range of Motion Normal right shoulder ROM Muscle Strength Normal right shoulder strength Assessment: 1. Impingement syndrome of left shoulder * [facility] - AMB Referral 2. Sprain of right wrist, initial encounter XR Wrist Right 3 + Vw * [facility] - AMB Referral Plans: 1. Impingement syndrome of left shoulder Advised supportive care: Avoid activities that make your pain worse. These include raising your arms overhead, re peating the same motion over and over, or lifting heavy objects. Don t hold your arm in one position for a long time. Keep it moving. Put an ice pack on the sore area for 20 minutes every 1 to 2 hours for the first day. Yo u can make an ice pack by putting ice cubes in a plastic bag. Wrap the bag in a towel before putting it on your shoulder. A frozen bag of peas or something similar can also be used as an ice pack. Use the ice packs 3 to 4 times a day for the next 2 days. Continue using the ic e to relieve of pain and swelling as needed. Patient on multiple pain medications. Advised she continue with current regimen. Decline s toradol injection. After your symptoms ease, you may get physical therapy or start a home exercise program. This can strengthen your shoulder muscles and help your range of motion. Talk with your doc tor about what is best for your condition. Discussed warning signs and when to seek medical attention: Shoulder pain that gets worse and wakes you up at night Your shoulder or arm swells Numbness, tingling, or pain that travels down the arm to the hand Loss of shoulder strength Fever or chills- * [facility] Therapy - AMB Referral 2. Sprain of right wrist, initial encounter Patient denies injury, but given degree of swelling xr warranted to rule out fracture. Advised supportive care: Limiting how much you move and use your wrist and hand Applying an ice pack to the injured area Keeping your wrist and hand raised (elevated) above heart level Wrapping your wrist in an elastic bandage Advised toradol shot for pain and inflammation, patient declines. Discussed warning signs and when to seek medical attention: Fever of 100.4F (38C) or higher, or as directed Symptoms that don t get better with treatment, or get worse Hand or fingers that feel numb or very cold, turn blue or powers, or swell Symptoms such as redness, warmth, swelling, bleeding, or drainage that occur at the inci shawna sites. This only applies if you had surgery. New symptoms - XR Wrist Right 3 + Vw; Future - * [facility] Physical Therapy - AMB Referral Follow-up: Return in about 6 weeks (around 05/17/2017), or if symptoms worsen or fail to im prove. documented in this e ncounter Plan of Treatment + +---------+--------+ + + | Name | Type | Priori | Associated Diagnoses | Order Schedule | | | | ty | | | + +---------+--------+ + + | XR Wrist Right 3 + | Imaging | Routin | Sprain of right | Expected: | | Vw | | e | wrist, initial | 04/05/2017, Expires: | | | | | encounter | 04/05/2018 | + +---------+--------+ + + + + +--------+ + + | Name | Type | Priori | Associated Diagnoses | Order Schedule | | | | ty | | | + + +--------+ + + | * [facility] | Outpatient | Routin | Impingement | Ordered: 04/05/2017 | | Therapy - AMB | Referral | e | syndrome of left | | | Referral | | | shoulder Sprain of | | | | | | right wrist, initial | | | | | | encounter | | + + +--------+ + + documented as of this encounter Visit Diagnoses + + | Diagnosis | + + | Impingement syndrome of left shoulder - Primary | + + | Sprain of right wrist, initial encounter | + + documented in this encounter"
--- OUTSIDE RECORDS SUMMARY | ~2019-10-30 | XMS | Encounter Summary ---
Demographics + + + | Address | [address] | | | [place] [address] | + + + | Home Phone | | + + + | Preferred Language | Unknown | + + + | Marital Status | Single | + + + | Mormonism Affiliation | [id number] | + + + [...] | | | | | [place] [address] | | + + + + + | Absweta Bunch | ECON | Unknown | | + + + + + Care Team Providers + +------+ + | Care Shader And Toner Name | Role | Phone | + [...] + + | 12/07/ | Office | [facility] | Alessandra Mercedes | Chronic pain | | 2017 | Visit | [facility] | [place], PharmD [address] | syndrome | | | | [address] | [address] [facility] | | | | | [place] | [place] [address] | | | | | [address] | [phone] | | | | | [phone] | | | +--------+---------+ + + + [...] arenormal responsestoopioid painmedicationsandarenot the same as addiction. [id number] [employer]. [address] [place] [address], [place] [address]. All righ ts reserved. This information is [...] Evette Barnhart placed it, or Dr. Cordoba. [facility] sig for: Past Medical History: Diagnosis Date [...] treatment, potential dangers of opio ids, and [place] State Law requirements for chronic opioid use. [...] - Risk for Obstructive Sleep Apnea - SULMA-7 Anxiety Scale: SULMA-7 Score (General Anxiety Disorder): [...] - Routed to PCP for review. 3) [place] State Prescription Monitoring Program - Report pulled [...]
--- OUTSIDE RECORDS SUMMARY | ~2019-10-30 | XMS | Encounter Summary ---
Demographics + + + | Address | [address] | | | [place] [address] | + + + | Home Phone [...] + | Author | [facility] | | | and Johnana | + + + | Organization | [facility] | | | and [...] | | | | | [place] [address] | | + + + + + | Ab Romykia | ECON | Unknown | | + + + + + Care Team Providers + +------+ + | Care Hide Shaker Name | Role | Phone | + [...] | +--------+ + + + + | 12/23/ | Emergency | [facility] | Jimy Davis MD | Generalized | | 2016 | | [facility] | [address] | abdominal pain | | | | CENTER [address] | [place] | (Primary Dx) | | | | [place] | [address] | | | | | [address] | | | | | | [phone] | | | +--------+ + + + [...] + + + | Blood Pressure | 115/59 | 12/24/2015 8:10 PM | | | | | PDT | | + + + + + | Pulse | 78 | 12/24/2015 8:10 PM | | | | | PDT | | + + + + + | Temperature | 37.6 C (99.7 F) | 12/24/2015 8:10 PM | | | | | PDT | | + + + + + | Respiratory Rate | 16 | 12/24/2015 8:10 PM | | | | | PDT | | + + + + + | Oxygen Saturation | 100% | 12/24/2015 8:10 PM | | | | | PDT | | + + + + + | Inhaled Oxygen | - | - | | | Concentration | | | | + + + + + | Weight | 59 kg (130 lb) | 12/24/2015 8:10 PM | | | | | PDT | | + + + + + | Height | 162.6 cm (5' 4") | 12/24/2015 8:10 PM | | | | | PDT | | + + + + + | Body Mass Index | 22.31 | 12/24/2015 8:10 PM | | | | | PDT | | + + + + + documented in this encounter Discharge Instructions Bon Martines RN - 12/24/2015Pain medication as needed Rest and fluids Return for worsening symptoms, other new complaints documented in this encounter [...] INFORMATION | CELSO | Routin | | 12/24/2015 7:58 PM | | EXCHANGE | | e | | PDT | + +------+--------+ + + documented as of this encounter Procedures + +--------+ + + + | Procedure Name | Priori | Date/Time | Associated Diagnosis | Comments | | | ty | | | | + +--------+ + + + | POCT URINALYSIS, | STAT | 12/24/2015 | | Results for this | | AUTO WITH CONF | | 10:24 PM | | procedure are in the | | | | PDT | | results section. | + +--------+ + + + | EXTRA GREEN TOP TUBE | Routin | 12/24/2015 | | Results for this | | | e | 9:51 PM | | procedure are in the | | | | PDT | | results section. | + +--------+ + + + | EXTRA BLUE TOP TUBE | Routin | 12/24/2015 | | Results for this | | | e | 9:51 PM | | procedure are in the | | | | PDT | | results section. | + +--------+ + + + | US PELVIS W | STAT | 12/24/2015 | | Results for this | | TRANSVAGINAL | | 9:50 PM | | procedure are in the | | | | PDT | | results section. | + +--------+ + + + | CBC W/AUTO | STAT | 12/24/2015 | | Results for this | | DIFFERENTIAL | | 9:49 PM | | procedure are in the | | | | PDT | | results section. | + +--------+ + + + | , SERUM, | STAT | 12/24/2015 | | Results for this | | QUAL | | 9:49 PM | | procedure are in the | | | | PDT | | results section. | + +--------+ + + + | COMPREHENSIVE | STAT | 12/24/2015 | | Results for this | | METABOLIC PANEL | | 9:49 PM | | procedure are in the | | | | PDT | | results section. | + +--------+ + + + | ED INFORMATION | Routin | 12/24/2015 | | | | EXCHANGE | e | 7:58 PM | | | | | | PDT | | | + +--------+ + + + documented in this encounter Results POCT Urinalysis Dipstick Automated (12/24/2015 10:24 PM PDT) + + + + + [...] + + + + | Ketones, | 15 mg/dL (A) | Negative, 100 | | | | UA, POC | | mg/dL | | | + + + + + + | Specific | 1.025 | 1.001 - 1.030 | | | | [place], | | | | | | UA, [...] + + + | Urobilinoge | 1.0 E.U./dL | 0.2, Negative, | | | | [...] specimen | | (specimen) | + + Extra Blue Top Tube (12/24/2015 9:51 PM PDT) + +-------+ + + + [...] | [address] | [place] | [phone] | | [facility] | | [address] | | | - LABORATORY | | | | + + + + + Extra Green Top Tube (12/24/2015 9:51 PM PDT) + +-------+ + + + [...] ST. | [address] | [place], [place] | [phone] | | [facility] | | [address] | | | - LABORATORY | | | | + + + + + US Pelvis W Transvaginal (12/24/2015 9:50 PM PDT) + + | Specimen | + + | | + + + + + | Narrative | Performed At | + + + | US PELVIS W TRANSVAGINAL 12/24/2015 9:34 PM HISTORY: Pain. | [facility] | | Chronic right lower quadrant pain, worsening yesterday. Patient | | | has Norplant. COMPARISON: Pelvic ultrasound 08/05/[address] | | | abdomen pelvis 10/07/2015 FINDINGS: Transabdominal and | | | transvaginal ultrasound images of the pelvis are available for | | | review. The uterus is smooth in contour and normal in echotexture, | | | measuring 6.6 x 2.8 x 3.0 cm. Endometrium is within normal limits in | | | appearance, measuring 3.5 mm in double thickness. The | | | right ovary is within normal limits in appearance and demonstrates | | | normal blood flow, measuring 3.0 x 2.3 x 2.9 cm. The left ovary | | | is within normal limits in appearance and demonstrates normal blood | | | flow, measuring 3.4 x 2.3 x 2.8 cm. No abnormalities are seen in | | | the adnexal regions. No free fluid is seen in the cul-de-sac. | | | There is echogenic debris within the urinary bladder. IMPRESSION - | | | Echogenic debris within the urinary bladder. Sonographic | | | evaluation of the pelvis otherwise unremarkable. Findings of this | | | study were reported to Dr. Davis at approximately 10:20 PM on | | | 12/24/2015 by the event manager following completion of the study. | | | Dictated and Signed by: Pasquale Almendarez MD Electronically signed: | | | 12/25/2015 11:18 AM | | + + + + + | Procedure Note | + + | Honorio, Rad Results In - 12/25/2015 11:21 AM PDT US PELVIS W TRANSVAGINAL 12/24/2015 9:34 | | PMHISTORY: Pain. Chronic right lower quadrant pain, worsening yesterday. Patient has | | Norplant.COMPARISON: Pelvic ultrasound 08/05/[address] abdomen pelvis | | 10/07/2015FINDINGS:Transabdominal and transvaginal ultrasound images of the pelvis are | | availablefor review.The uterus is smooth in contour and normal in echotexture, measuring | | 6.6 x 2.8 x3.0 cm.Endometrium is within normal limits in appearance, measuring 3.5 mm | | in doublethickness. The right ovary is within normal limits in appearance and | | demonstrates normalblood flow, measuring 3.0 x 2.3 x 2.9 cm.The left ovary is within | | normal limits in appearance and demonstrates normalblood flow, measuring 3.4 x 2.3 x 2.8 | | cm.No abnormalities are seen in the adnexal regions.No free fluid is seen in the | | cul-de-sac.There is echogenic debris within the urinary bladder.IMPRESSION -Echogenic | | debris within the urinary bladder.Sonographic evaluation of the pelvis otherwise | | unremarkable.Findings of this study were reported to Dr. Davis at approximately 10:20 PM | | on12/24/2015 by the event manager following completion of the study.Dictated and Signed by: | | Pasquale Almendarez MD Electronically signed: 12/25/2015 11:18 AM | |The right ovary is within normal limits in appearance and demonstrates normal | |blood flow, measuring 3.0 x 2.3 x 2.9 cm. | | | |The left ovary is within normal limits in appearance and demonstrates normal | |blood flow, measuring 3.4 x 2.3 x 2.8 cm. | | | |No abnormalities are seen in the adnexal regions. | |No free fluid is seen in the cul-de-sac. | | | |There is echogenic debris within the urinary bladder. | | | |IMPRESSION - | |Echogenic debris within the urinary bladder. | | | |Sonographic evaluation of the pelvis otherwise unremarkable. | | | |Findings of this study were reported to Dr. Davis at approximately 10:20 PM on | |12/24/2015 by the event manager following completion of the study. | | | |Dictated and Signed by: Pasquale Almendarez MD | | Electronically signed: 12/25/2015 11:18 AM | + + + +---------+ + + | Performing | Address | City/State/Zipcode | Phone Number | | Organization | | | | + +---------+ + + | [facility] | | | | + +---------+ + + , Serum, Qual (12/24/2015 9:49 PM PDT) + + + + + + | Component | Value | Ref Range | Performed | Pathologist | | | | | At | Signature | + + + + + + | hCG Screen, | Negative | Negative | [facility] | | | Serum | | | [facility] | | [...] + | [facility] | [address] | [place] | [phone] | | [facility] | | [address] | | | - LABORATORY | | | | + + + + + Comprehensive Metabolic Panel (12/24/2015 9:49 PM PDT) + + + + + [...] + + | K | 3.7 | 3.5 - 5.1 | [facility] | | | | | mmol/L | [facility] | | | | | | MEDICAL | | | | | | CENTER - | | | | | | LABORATORY | | + + + + + + | Cl | 109 | 98 - 109 mmol/L | [facility] | | | | | | [facility] | | | | | | MEDICAL | | | | | | CENTER - | | | | | | LABORATORY | | + + + + + + | CO2 | 25 | 24 - 31 mmol/L | [facility] [...] + + + + | Glucose | 84 | 70 - 109 mg/dL | [facility] | | | | | | [facility] | | | | | | MEDICAL | | | | | | CENTER - | | | | | | LABORATORY | | + + + + + + | BUN | 8 | 7 - 18 mg/dL | [facility] | | | | | | [facility] | | | | | | MEDICAL | | | | | | CENTER - | | | | | | LABORATORY | | + + + + + + | Creatinine | 0.73 | 0.60 - 1.30 | [facility] | | | | | mg/dL | [facility] | | | | | | MEDICAL | | | | | | CENTER - | | | | | | LABORATORY | | + + + + + + | eGFR if not | >60Comment: GLOMERULAR | >=60 | [facility] | | | | FILTRATION | mL/min/1.73m2 | [facility] | | | [place] | RATE,ESTIMATED | | MEDICAL | | | | mL/min/1.89i0Ubxc than | | CENTER - | | [...] + + + + | Calcium | 9.5 | 8.3 - 10.5 | [facility] | | | | | mg/dL | [facility] | | | | | | MEDICAL | | | | | | CENTER - | | | | | | LABORATORY | | + + + + + + | Albumin | 4.1 | 3.2 - 5.0 g/dL | [facility] | | | | | | [facility] | | | | | | MEDICAL | | | | | | CENTER - | | | | | | LABORATORY | | + + + + + + | Bilirubin | 0.6Comment: This is an | 0.1 - 1.5 [...] + + + + | AST | 23Comment: This is an | 10 - 42 [...] + + + + | ALT | 17Comment: This is an | 6 - 45 [...] + + + + | Alkaline | 84Comment: This is an | 40 - 110 [...] + + | Albumin/Bianca | 1.8 | 0.8 - 2.0 | [facility] | | | bulin Ratio | | | [facility] | | | | | | MEDICAL | | | | | | CENTER - | | | | | | LABORATORY | | + + + + + + | BUN/Creatin | 11.0 | | [facility] | | | ine [...] + | [facility] | [address] | [place] | [phone] | | [facility] | | [address] | | | - LABORATORY | | | | + + + + + CBC w/ Auto Differential (12/24/2015 9:49 PM PDT) + +-------+ + + + | Component | Value | Ref Range | Performed | Pathologist | | | | | At | Signature | + +-------+ + + + | WBC | 6.3 | 4.0 - 11.0 K/uL | [facility] | | | | | | [facility] | | | | | | MEDICAL | | | | | | CENTER - | | | | | | LABORATORY | | + +-------+ + + + | RBC | 4.19 | 3.70 - 5.20 | [facility] | | | | | M/uL | [facility] | | | | | | MEDICAL | | | | | | CENTER - | | | | | | LABORATORY | | + +-------+ + + + | Hemoglobin | 13.2 | 11.5 - 16.0 | [facility] | | | | | g/dL | [facility] | | | | | | MEDICAL | | | | | | CENTER - | | | | | | LABORATORY | | + +-------+ + + + | Hematocrit | 38.2 | 34.0 - 47.0 % | [facility] | | | | | | [facility] | | | | | | MEDICAL | | | | | | CENTER - | | | | | | LABORATORY | | + +-------+ + + + | MCV | 91.1 | 83.0 - 101.0 fL | [facility] | | | | | | [facility] | | | | | | MEDICAL | | | | | | CENTER - | | | | | | LABORATORY | | + +-------+ + + + | MCH | 31.4 | 28.0 - 35.0 pg | [facility] | | | | | | [facility] | | | | | | MEDICAL | | | | | | CENTER - | | | | | | LABORATORY | | + +-------+ + + + | MCHC | 34.5 | 32.0 - 36.0 | [facility] | | | | | g/dL | [facility] | | | | | | MEDICAL | | | | | | CENTER - | | | | | | LABORATORY | | + +-------+ + + + | RDW-CV | 12.2 | <15.0 % | [facility] | | | | | | [facility] | | | | | | MEDICAL | | | | | | CENTER - | | | | | | LABORATORY | | + +-------+ + + + | Platelet | 283 | 140 - 440 K/uL | [facility] | | | Count | | | [facility] | | | | | | MEDICAL | | | | | | CENTER - | | | | | | LABORATORY | | + +-------+ + + + | MPV | 7.5 | fL | [facility] | | | | | | [facility] | | | | | | MEDICAL | | | | | | CENTER - | | | | | | LABORATORY | | + +-------+ + + + | % | 45.1 | 45.0 - 82.0 % | [facility] | | | Neutrophils | | | [facility] | | | | | | MEDICAL | | | | | | CENTER - | | | | | | LABORATORY | | + +-------+ + + + | % | 44.7 | 20.0 - 45.0 % | [facility] | | | Lymphocytes | | | [facility] | | | | | | MEDICAL | | | | | | CENTER - | | | | | | LABORATORY | | + +-------+ + + + | % Monocytes | 6.7 | 4.0 - 12.0 % | [facility] | | | | | | [facility] | | | | | | MEDICAL | | | | | | CENTER - | | | | | | LABORATORY | | + +-------+ + + + | % | 2.8 | 0.0 - 5.0 % | [facility] | | | Eosinophils | | | [facility] | | | | | | MEDICAL | | | | | | CENTER - | | | | | | LABORATORY | | + +-------+ + + + | % Basophils | 0.7 | 0.0 - 1.0 % | [facility] | | | | | | [facility] | | | | | | [facility]ICAL | | | | | | CENTER - | | | | | | LABORATORY | | + +-------+ + + + | Absolute | 2.90 | 1.80 - 8.50 | [facility] | | | Neutrophils | | K/uL | [facility] | | | | | | [facility]ICAL | | | | | | CENTER - | | | | | | LABORATORY | | + +-------+ + + + | Absolute | 2.80 | 0.60 - 3.20 | [facility] | | | Lymphocytes | | K/uL | [facility] | | | | | | MEDICAL | | | | | | CENTER - | | | | | | LABORATORY | | + +-------+ + + + | Absolute | 0.40 | 0.00 - 1.00 | [facility] | | | Monocytes | | K/uL | [facility] | | | | | [...] +-------+ + + + | Absolute | 0.00 [...] [address] | [place] | [phone] | | [facility] | | [address] | | | - LABORATORY | | | | + + + + + documented in this encounter Visit Diagnoses + + | Diagnosis | + + | Generalized abdominal pain - Primary Abdominal pain, generalized | + + documented in this encounter Administered Medications + + + + +------+------+ | Medication Order | MAR | Action | Dose | Rate | Site | | | Action | Date | | | | + + + + +------+------+ | HYDROcodone-acetaminophen | Dispense | 12/24/19 | 1 tablet | | | | (NORCO) 5-325 mg per tablet (ER | to Home | 16 11:04 | | | | | Prepack) 1-2 tablet 1-2 tablet, | | PM PDT | | | | | Oral, ONCE, Tue12/24/15 at 2110, | | | | | | | For 1 dose, Take 1-2 tablet(s) | | | | | | | every 4-6 hours if needed. | | | | | | | Dispense for home use., | | | | | | + + + + +------+------+ +---+---+ | | | +---+---+ + +-------+ +--------+---+---+ | HYDROmorphone (DILAUDID) | Given | 12/24/19 | 0.5 mg | | | | injection 0.5 mg 0.5 mg, | | 16 9:59 | | | | | Intravenous, ONCE, Tue12/24/15 at | | PM PDT | | | | | 2105, For 1 dose | | | | | | + +-------+ +--------+---+---+ +---+---+ | | | +---+---+ + +-------+ +------+---+---+ | ondansetron (ZOFRAN) injection | Given | 12/24/19 | 4 mg | | | | 4 mg 4 mg, Intravenous, ONCE, | | 16 9:59 | | | | | 12/24/15 at 2105, For 1 dose | | PM PDT | | | | + +-------+ +------+---+---+ +---+---+ | | | +---+---+ documented in this encounter
--- OUTSIDE RECORDS SUMMARY | ~2019-10-30 | XMS | Encounter Summary ---
Demographics + + + | Address | [address] | | | [place] [address] | + + + | Home Phone | | + + + | Preferred Language | Unknown | + + + | Marital Status | Single | + + + | Anabaptism Affiliation | [id number] | + + + [...] | | | | | [place] [address] | | + + + + + | Ab Romykia | ECON | Unknown | | + + + + + Care Team Providers + +------+ + | Care Elementary Supervisor Name | Role | Phone | + +------+ + PCP | Unavailable | + +------+ + Encounter Details +--------+ + + + + | Date | Type | Department | Care Team | Description | +--------+ + + + + | 02/01/ | Abstract | [facility] | [facility] | | | 2011 | | Conversion Location | SR | | | | | [address] | | | | | | [place], [place] | | | | | | [address] | | | | | | [phone] | | | +--------+ + + + [...] + + + | Blood Pressure | 118/70 | 03/03/2010 12:00 AM | | | | | PDT | | + + + + + | Pulse | - | - | | + [...] Weight | 59 kg (130 lb) | 03/03/2010 12:00 AM | | | | | PDT | | + + + + + | Height | 162.6 cm (5' 4") | 11/22/2009 12:00 AM | | | | | PDT | | + + + + + | Body Mass Index | - | - | | + + + + + documented in this encounter Plan of Treatment Not on filedocumented as of this encounter Visit Diagnoses Not on filedocumented in this encounter
--- OUTSIDE RECORDS SUMMARY | ~2019-10-30 | XMS | Encounter Summary ---
Demographics + + + | Address | [address] | | | [place] [address] | + + + | Home Phone [...] | | | | | [place] [address] | | + + + + + | Ab Romykia | ECON | Unknown | | + + + + + Care Team Providers + +------+ + | Care Hall Clerk Name | Role | Phone | [...] | +--------+ + + + + | 02/14/ | Emergency | [facility] | [facility] | PID (pelvic | | 2016 - | | [facility] | MD Miek [address] | inflammatory | | | | [place] [address] | [address] [facility] | disease) (Primary | | 02/15/ | | [place], [place] | [place] [address] | Dx) | | 2015 | | [address] | [phone] | | | | | [phone] | | | +--------+ + + + [...] + + + | Blood Pressure | 120/75 | 02/16/2016 12:45 AM | | | | | PDT | | + + + + + | Pulse | 85 | 02/16/2016 12:45 AM | | | | | PDT | | + + + + + | Temperature | 37.2 C (98.9 F) | 02/15/2016 9:10 PM | | | | | PDT | | + + + + + | Respiratory Rate | 15 | 02/16/2016 12:45 AM | | | | | PDT | | + + + + + | Oxygen Saturation | 99% | 02/16/2016 12:45 AM | | | | | PDT | | + + + + + | Inhaled Oxygen | - | - | | | Concentration | | | | + + + + + | Weight | 54.4 kg (120 lb) | 02/15/2016 9:10 PM | | | | | PDT | | + + + + + | Height | 162.6 cm (5' 4") | 02/15/2016 9:10 PM | | | | | PDT | | + + + + + | Body Mass Index | 20.6 | 02/15/2016 9:10 PM | | | | | PDT | | + + + + + documented in this encounter Discharge Instructions AttachmentsThe following attachments cannot be sent through Care Everywhere.PELVIC INFLAMMA TORY DISEASE (KAZAKH)documented in this encounter Medications at Time of [...] + +---------+ + + | doxycycline | Take 1 tablet by | 28 | 0 | 02/16/20 | | | (VIBRAMYCIN) 100 mg | mouth 2 times daily | tablet | | 16 | 6 | | tablet | for 14 days. | | | | | + + [...] + + + +---------+ + + | metroNIDAZOLE | Take 1 tablet by | 20 | 0 | 02/16/20 | | | (FLAGYL) 500 MG | mouth 2 times daily | tablet | | 16 | 6 | | tablet | for 10 days. | | | | | + + [...] tablet by | 4 | 0 | 02/16/20 | | | oxyCODONE-acetaminop | mouth every 12 hours | tablet | | 16 | 6 | | hen (PERCOCET) 5-325 | as needed for Pain | | | | | | mg per tablet | for up to 2 days. | | | | | + + + +---------+ + + documented as of this encounter Plan of Treatment + +------+--------+ + + | Name | Type | Priori | Associated Diagnoses | Date/Time | | | | ty | | | + +------+--------+ + + | ED INFORMATION | CELSO | Routin | | 02/15/2016 8:35 PM | | EXCHANGE | | e | | PDT | + +------+--------+ + + documented as of this encounter Procedures + +--------+ + + + | Procedure Name | Priori | Date/Time | Associated Diagnosis | Comments | | | ty | | | | + +--------+ + + + | VAGINAL PATHOGENS | STAT | 02/16/2016 | | Results for this | | DNA DIRECT PROBE | | 2:49 AM | | procedure are in the | | | | PDT | | results section. | + +--------+ + + + | CULTURE, GENITAL, | Routin | 02/16/2016 | | Results for this | | SMEAR | e | 2:49 AM | | procedure are in the | | | | PDT | | results section. | + +--------+ + + + | C. TRACHOMATIS AND | STAT | 02/16/2016 | | Results for this | | N. GONORRHOEAE, NAAT | | 2:49 AM | | procedure are in the | | ([facility]) | | PDT | | results section. | + +--------+ + + + | CT ABDOMEN PELVIS W | STAT | 02/15/2016 | | Results for this | | CONTRAST | | 11:33 PM | | procedure are in the | | | | PDT | | results section. | + +--------+ + + + | US PELVIS W | STAT | 02/15/2016 | | Results for this | | TRANSVAGINAL | | 10:56 PM | | procedure are in the | | | | PDT | | results section. | + +--------+ + + + | EXTRA GREEN TOP TUBE | Routin | 02/15/2016 | | Results for this | | | e | 10:06 PM | | procedure are in the | | | | PDT | | results section. | + +--------+ + + + | EXTRA BLUE TOP TUBE | Routin | 02/15/2016 | | Results for this | | | e | 10:06 PM | | procedure are in the | | | | PDT | | results section. | + +--------+ + + + | URINALYSIS WITH | STAT | 02/15/2016 | | Results for this | | MICROSCOPIC WITH | | 10:04 PM | | procedure are in the | | CULTURE IF INDICATED | | PDT | | results section. | + +--------+ + + + | LACTIC ACID | STAT | 02/15/2016 | | Results for this | | | | 10:02 PM | | procedure are in the | | | | PDT | | results section. | + +--------+ + + + | CBC WITH | STAT | 02/15/2016 | | Results for this | | DIFFERENTIAL | | 9:56 PM | | procedure are in the | | | | PDT | | results section. | + +--------+ + + + | , SERUM, | STAT | 02/15/2016 | | Results for this | | QUAL | | 9:56 PM | | procedure are in the | | | | PDT | | results section. | + +--------+ + + + | LIPASE | STAT | 02/15/2016 | | Results for this | | | | 9:56 PM | | procedure are in the | | | | PDT | | results section. | + +--------+ + + + | COMPREHENSIVE | STAT | 02/15/2016 | | Results for this | | METABOLIC PANEL | | 9:56 PM | | procedure are in the | | | | PDT | | results section. | + +--------+ + + + | ED INFORMATION | Routin | 02/15/2016 | | | | EXCHANGE | e | 8:35 PM | | | | | | PDT | | | + +--------+ + + + documented in this encounter Results Culture, Genital, Smear (02/16/2016 2:49 AM PDT) + + + + + + | Component | Value | Ref Range | Performed | Pathologist | | | | | At | Signature | + + + + + + | Culture | No Neisseria gonorrhoeae | | [facility] | | | | isolated. | | [facility] | | | | | | [facility] | | | | | | [facility] - | | | | | | LABORATORY | | + + + + + + | Culture | 4+ Usual Genital Ebonie | | [facility] | | | | | | [facility] | | | | | | [facility] | | | | | | C[facility] - | | | | | | LABORATORY | | + + + + + + | Gram Stain | 1+ White Blood Cells | | [facility] | | | Result | | | [facility] | | | | | | [facility] | | | | | | [facility] - | | | | | | LABORATORY | | + + + + + + | Gram Stain | 3+ Epithelial cells | | [facility] | | | Result | | | [facility] | | | | | | [facility] | | | | | | [facility] - | | | | | | LABORATORY | | + + + + + + | Gram Stain | 4+ Gram positive cocci | | [facility] | | | Result | | | [facility] | | | | | | [facility] | | | | | | CENTER - | | | | | | LABORATORY | | + + + + + + | Gram Stain | 4+ Gram positive bacilli | | [facility] | | | Result | | | [facility] | | | | | | [facility] | | | | | | CENTER - | | | | | | LABORATORY | | + + + + + + | Gram Stain | Negative for gram | | [facility] | | | Result | negative diplococci | | [facility] | | | | | | [facility] | | | | | | CENTER - | | | | | | LABORATORY | | + + + + + + + + | Specimen | + + | Genital - Female | | genital tract | | structure (body | | structure) | + + + + + + + | Performing | Address | City/State/Zipcode | Phone Number | | Organization | | | | + + + + + | [facility] | [address] | [place] | [phone] | | [facility] | | [address] | | | - LABORATORY | | | | + + + + + C. trachomatis and N. gonorrhoeae, NAAT ([facility]) (02/16/2016 2:49 AM PDT) + + + + + + | Component | Value | Ref Range | Performed | Pathologist | | | | | At | Signature | + + + + + + | SPECSOURCE | [facility] | | [facility] | | | | | | [facility] | | + + + + + + | Chlamydia | See CommentsComment: Not | NOTDET | REFERENCE | | | trachomatis | DetectedA result of Not | | [facility] | | | PCR | Detected does not rule | | | | | | out the presence of | | | | | | PCRinhibitors present in | | | | | | the specimen or levels | | | | | | of Chlamydia | | | | | | trachomatisbelow the | | | | | | limit of detection for | | | | | | this assay. | | | | + + + + + + | Neisseria | See CommentsComment: Not | NOTDET | REFERENCE | | | gonorrhoeae | DetectedA result of Not | | [facility] | | | PCR | Detected does not rule | | | | | | out the presence of | | | | | | PCRinhibitors present in | | | | | | the specimen or levels | | | | | | of Neisseria | | | | | | gonorrhoeaebelow the | | | | | | limit of detection of | | | | | | the assay.Testing | | | | | | Performed: [facility], [address] | | | | | [address], [place] | | | | | | [address] | | | | + + + + + + + + | Specimen | + + | Specimen from | | genital system | | (specimen) - [facility] | + + + + + + + | Performing | Address | City/State/Zipcode | Phone Number | | Organization | | | | + + + + + | [facility] | [address] | [place] [address] | [phone] | + + + + + Vaginal Path DNA dir probe (02/16/2016 2:49 AM PDT) + + + + + + | Component | Value | Ref Range | Performed | Pathologist | | | | | At | Signature | + + + + + + | Jessa SP | Negative | Negative | [facility] | | | DNA Genital | | | [facility] | | | | | | MEDICAL | | | | | | CENTER - | | | | | | LABORATORY | | + + + + + + | Gardnerella | Negative | Negative | [facility] | | | vaginalis | | | [facility] | | | DNA | | | MEDICAL | | | | | | CENTER - | | | | | | LABORATORY | | + + + + + + | Trichomonas | Negative | Negative | [facility] | | | Vaginalis | | | [facility] | | | DNA | | | MEDICAL | | | | | | CENTER - | | | | | | LABORATORY | | + + + + + + + + | Specimen | + + | Genital - Female | | genital sample | | (specimen) | + + + + + + + | Performing | Address | City/State/Zipcode | Phone Number | | Organization | | | | + + + + + | [facility] | [address] | [place] | [phone] | | [facility] | | [address] | | | - LABORATORY | | | | + + + + + CT Abdomen Pelvis w Contrast (02/15/2016 11:33 PM PDT) + + | Specimen | + + | | + + + + + | Narrative | Performed At | + + + | CT ABDOMEN PELVIS W CONTRAST 02/15/2016 10:58 PM HISTORY: | [facility] | | ABDOMINAL PAIN. COMPARISON: 10/07/2015, 01/07/2012. PROTOCOL: | | | Axial images of the abdomen and pelvis were obtained after | | | administration of 85 mL Omnipaque 350. Coronal and sagittal | | | reformations were acquired. FINDINGS: Chest base is normal. | | | A stable low-attenuation structure is in the anterior right hepatic | | | lobe with some heterogeneous enhancement measuring 1.1 cm, most | | | consistent with a hemangioma. Stable low-attenuation is seen in the | | | right hepatic lobe near the falciform ligament that could represent | | | focal fat versus hemangioma. The gallbladder is normal. Biliary ducts | | | are unremarkable. The spleen is unremarkable. The pancreas | | | demonstrates normal parenchyma and a normal pancreatic duct. Adrenal | | | glands are normal. Bilateral kidneys and visualized ureters are | | | normal. Stomach, small bowel, and terminal ileum are normal. The | | | appendix is absent. Colon is unremarkable. Aorta is | | | nonaneurysmal. The iliac arteries are normal. There is no significant | | | abnormality in the portal veins, mesenteric veins, or systemic veins. | | | No enlarged lymph nodes are visualized within the omentum or | | | retroperitoneum. There is no evidence for ascites or free air. | | | Bladder is normal. The uterus is normal. There is a cyst of the | | | right adnexa that measures 3.1 cm with complex fluid. A 2.9 cm left | | | adnexal cyst is observed with complex fluid. Body wall soft tissue | | | structures are normal. There is mild right curvature of the | | | thoracolumbar spine. No acute osseous findings are seen. | | | IMPRESSION - Bilateral complex adnexal cysts measuring 3.1 cm on the | | | right and 2.9 cm on the left Stable hepatic hemangioma. A | | | preliminary report was sent by [facility] n on 02/15/2016 at 11:54 | | | PM with no significant discrepancy. Dictated and Signed by: Yovani | | | MD Won Electronically signed: 02/16/2016 8:28 AM | | + + + + + | Procedure Note | + + | Honorio, Rad Results In - 02/16/2016 7:[address] ABDOMEN PELVIS W CONTRAST 02/15/2016 | | 10:58 PMHISTORY: ABDOMINAL PAIN.COMPARISON: 10/07/2015, 01/07/2012.PROTOCOL: Axial images | | of the abdomen and pelvis were obtained afteradministration of 85 mL Omnipaque 350. | | Coronal and sagittal reformations wereacquired.FINDINGS:Chest base is normal.A stable | | low-attenuation structure is in the anterior right hepatic lobe withsome heterogeneous | | enhancement measuring 1.1 cm, most consistent with ahemangioma. Stable low-attenuation | | is seen in the right hepatic lobe near thefalciform ligament that could represent focal | | fat versus hemangioma. Thegallbladder is normal. Biliary ducts are unremarkable.The | | spleen is unremarkable. The pancreas demonstrates normal parenchyma and anormal | | pancreatic duct. Adrenal glands are normal.Bilateral kidneys and visualized ureters are | | normal.Stomach, small bowel, and terminal ileum are normal. The appendix is absent.Colon | | is unremarkable.Aorta is nonaneurysmal. The iliac arteries are normal. There is no | | significantabnormality in the portal veins, mesenteric veins, or systemic veins. No | | enlarged lymph nodes are visualized within the omentum or retroperitoneum.There is no | | evidence for ascites or free air.Bladder is normal.The uterus is normal. There is a cyst | | of the right adnexa that measures 3.1 cmwith complex fluid. A 2.9 cm left adnexal cyst | | is observed with complex fluid.Body wall soft tissue structures are normal. There is | | mild right curvature ofthe thoracolumbar spine. No acute osseous findings are | | seen.IMPRESSION -Bilateral complex adnexal cysts measuring 3.1 cm on the right and 2.9 | | cm on theleftStable hepatic hemangioma.A preliminary report was sent by [facility] | | on 02/15/2016 at 11:54 PM withno significant discrepancy.Dictated and Signed by: Yovani | | MD Won Electronically signed: 02/16/2016 8:28 AM | |Bilateral kidneys and visualized ureters are normal. | | | |Stomach, small bowel, and terminal ileum are normal. The appendix is absent. | |Colon is unremarkable. | | | |Aorta is nonaneurysmal. The [...] cyst of the right adnexa that measures 3.1 cm | |with complex fluid. A 2.9 cm left adnexal cyst is observed with complex fluid. | | | |Body wall soft tissue structures are normal. There is mild right curvature of | |the thoracolumbar spine. No acute osseous findings are seen. | | | |IMPRESSION - | |Bilateral complex adnexal cysts measuring 3.1 cm on the right and 2.9 cm on the | |left | | | |Stable hepatic hemangioma. | | | |A preliminary report was sent by [facility] on 02/15/2016 at 11:54 PM with | |no significant discrepancy. | | | |Dictated and Signed by: Yovani Upton MD | | Electronically signed: 02/16/2016 8:28 AM | + + + +---------+ + + | Performing | Address | City/State/Zipcode | Phone Number | | Organization | | | | + +---------+ + + | [facility] | | | | + +---------+ + + US Pelvis W Transvaginal (02/15/2016 10:56 PM PDT) + + | Specimen | + + | | + + + + + | Narrative | Performed At | + + + | EXAM:US PELVIS W TRANSVAGINAL CLINICAL HISTORY: ABDOMINAL PAIN | [facility] | | COMPARISON: None. FINDINGS: Transabdominal and transvaginal | | | imaging of the pelvis. Uterus: The uterus is anteflexed. The | | | endometrium is compact. It measures about 3 mm. There are no | | | focal myometrial abnormalities. The uterus measures 5.4 x 3.4 x 2.8 | | | cm. Ovaries and adnexa: The right ovary is unremarkable. It | | | contains a 1.7 cm follicle. It measures 3.2 x 2.2 x 2.2 cm. Color | | | and spectral Doppler flow are identified in the right ovary. The | | | left ovary is normal. It measures 3.4 x 2.3 x 2.8 cm. Color and | | | spectral Doppler flow are identified in the left ovary. There are no | | | adnexal masses. IMPRESSION - Unremarkable pelvic ultrasound. | | | No sonographic evidence for ovarian torsion. The preliminary | | | findings were conveyed to the ordering provider, by the cotton grower, | | | immediately following the exam. Dictated and Signed by: Nikko Hopper | | MD Krishan Electronically signed: 02/16/2016 9:08 AM | | + + + + + | Procedure Note | + + | Honorio, Rad Results In - 02/16/2016 7:05 PM PDT EXAM:US PELVIS W TRANSVAGINAL | | | | CLINICAL HISTORY: ABDOMINAL PAIN | | | | COMPARISON: None. | | | | FINDINGS: Transabdominal and transvaginal imaging of the pelvis. | | | | Uterus: The uterus is anteflexed. The endometrium is compact. It measures | | about 3 mm. There are no focal myometrial abnormalities. The uterus measures | | 5.4 x 3.4 x 2.8 cm. | | | | Ovaries and adnexa: The right ovary is unremarkable. It contains a 1.7 cm | | follicle. It measures 3.2 x 2.2 x 2.2 cm. Color and spectral Doppler flow are | | identified in the right ovary. The left ovary is normal. It measures 3.4 x 2.3 | | x 2.8 cm. Color and spectral Doppler flow are identified in the left ovary. | | There are no adnexal masses. | | | | IMPRESSION - | | | | Unremarkable pelvic ultrasound. | | | | No sonographic evidence for ovarian torsion. | | | | The preliminary findings were conveyed to the ordering provider, by the | | cotton grower, immediately following the exam. | | | | Dictated and Signed by: Nikko Nickerson MD | | Electronically signed: 02/16/2016 9:08 AM | + + + +---------+ + + | Performing | Address | City/State/[facility] | Phone Number | | Organization | | | | + +---------+ + + | [facility] | | | | + +---------+ + + Extra Blue Top Tube (02/15/2016 10:06 PM PDT) + +-------+ + + + [...] + | [facility] | [address] | [place], [place] | [phone] | | [facility] | | [address] | | | - LABORATORY | | | | + + + + + Extra Green Top Tube (02/15/2016 10:06 PM PDT) + +-------+ + + + [...] [address] | [place] | [phone] | | [facility] | | [address] | | | - LABORATORY | | | | + + + + + Urinalysis with Microscopic with Culture if Indicated (02/15/2016 10:04 PM PDT) + + + + + [...] + + + + | Specific | 1.018 | 1.001 - 1.030 | [facility] | | | [place], | | | [facility] | | [...] Leukocyte | Trace (A) | Negative | [facility] | | [...] + | [facility] | [address] | [place] | [phone] | | [facility] | | [address] | | | - LABORATORY | | | | + + + + + Lactic Acid (02/15/2016 10:02 PM PDT) + +-------+ + + + | Component | Value | Ref Range | Performed | Pathologist | | | | | At | Signature | + +-------+ + + + | Lactate | 0.7 | 0.5 - 2.2 | [facility] | | | | | [...] [facility] | [address] | [place] | [phone] | | [facility] | | [address] | | | - LABORATORY | | | | + + + + + , Serum, Qual (02/15/2016 9:56 PM PDT) + + + + + [...] [address] | [place] | [phone] | | [facility] | | [address] | | | - LABORATORY | | | | + + + + + Lipase (02/15/2016 9:56 PM PDT) + +-------+ + + + | Component | Value | Ref Range | Performed | Pathologist | | | | | At | Signature | + +-------+ + + + | Lipase | 19 | 0 - 60 U/L | [facility] | | | | [...] + | [facility] | [address] | [place], [place] | [phone] | | [facility] | | [address] | | | - LABORATORY | | | | + + + + + Comprehensive Metabolic Panel (02/15/2016 9:56 PM PDT) + + + + + + | Component | Value | Ref Range | Performed | Pathologist | | | | | At | Signature | + + + + + + | Na | 138 | 136 - 149 | [facility] | [...] + + + + | Cl | 108 | 98 - 109 mmol/L | [facility] [...] + + + | Anion Gap | 4 | 3 - 16 mmol/L | [facility] | | | | | | [facility] | | | | | | MEDICAL | | | | | | CENTER - | | | | | | LABORATORY | | + + + + + + | Glucose | 100 | 70 - 109 mg/dL | [facility] [...] | 0.65 | 0.60 - 1.30 | [facility] | [...] | mL/min/1.73m2 | [facility] | | | [facility] | RATE,ESTIMATED | | MEDICAL | | | | mL/min/1.72a9Uteo than | | CENTER - | | [...] + + + + | Calcium | 8.9 | 8.3 - 10.5 | [facility] | | | | | mg/dL | [facility] | | | | | | MEDICAL | | | | | | CENTER - | | | | | | LABORATORY | | + + + + + + | Albumin | 3.8 | 3.2 - 5.0 g/dL | [facility] | | | | | | [facility] | | | | | | [facility] | | | | | | CENTER - | | | | | | LABORATORY | | + + + + + + | Bilirubin | 0.5Comment: This is an | 0.1 - 1.5 [...] + + + + | Total | 5.7 (L) | 6.0 - 7.8 g/dL | [facility] | | | Protein | | | [facility] | | | | | | MEDICAL | | | | | | CENTER - | | | | | | LABORATORY | | + + + + + + | AST | 19Comment: This is an | 10 - 42 [...] + + + + | ALT | 12Comment: This is an | 6 - 45 [...] + + + + | Alkaline | 75Comment: This is an | 40 - 110 [...] + + + + | Albumin/Bianca | 2.0 | 0.8 - 2.0 | [facility] | | | bulin Ratio | | | [facility] | | | | | | MEDICAL | | | | | | CENTER - | | | | | | LABORATORY | | + + + + + + | BUN/Creatin | 9.2 | | [facility] | | | ine [...] + | [facility] | [address] | [place] | [phone] | | [facility] | | [address] | | | - LABORATORY | | | | + + + + + CBC with Differential (02/15/2016 9:56 PM PDT) + +-------+ + + + | Component | Value | Ref Range | Performed | Pathologist | | | | | At | Signature | + +-------+ + + + | WBC | 5.8 | 4.0 - 11.0 K/uL | [facility] | | | | | [facility] | | | | | | [facility] | | | | | | CENTER - | | | | | | LABORATORY | | + +-------+ + + + | RBC | 3.74 | 3.70 - 5.20 | [facility] | | | | | M/uL | [facility] | | | | | | [facility] | | | | | | CENTER - | | | | | | LABORATORY | | + +-------+ + + + | Hemoglobin | 11.9 | 11.5 - 16.0 | [facility] | | | | | g/dL | [facility] | | | | | | MEDICAL | | | | | | CENTER - | | | | | | LABORATORY | | + +-------+ + + + | Hematocrit | 34.5 | 34.0 - 47.0 % | [facility] | | | | | | [facility] | | | | | | [facility]ICAL | | | | | | CENTER - | | | | | | LABORATORY | | + +-------+ + + + | MCV | 92.3 | 83.0 - 101.0 fL | [facility] | | | | | | [facility] | | | | | | [facility] | | | | | | CENTER - | | | | | | LABORATORY | | + +-------+ + + + | MCH | 31.8 | 28.0 - 35.0 pg | [facility] [...] +-------+ + + + | Platelet | 285 | 140 - 440 K/uL | [facility] | | | Count | | | [facility] | | | | | | MEDICAL | | | | | | CENTER - | | | | | | LABORATORY | | + +-------+ + + + | MPV | 7.4 | fL | [facility] | | | | | | [facility] | | | | | | MEDICAL | | | | | | CENTER - | | | | | | LABORATORY | | + +-------+ + + + | % | 51.2 | 45.0 - 82.0 % | [facility] | | | Neutrophils | | | [facility] | | | | | | MEDICAL | | | | | | CENTER - | | | | | | LABORATORY | | + +-------+ + + + | % | 40.1 | 20.0 - 45.0 % | [facility] | | | Lymphocytes | | | [facility] | | | | | | MEDICAL | | | | | | CENTER - | | | | | | LABORATORY | | + +-------+ + + + | % Monocytes | 5.6 | 4.0 - 12.0 % | [facility] | | | | | | [facility] | | | | | | MEDICAL | | | | | | CENTER - | | | | | | LABORATORY | | + +-------+ + + + | % | 2.3 | 0.0 - 5.0 % | [facility] | | | Eosinophils | | | [facility] | | | | | | MEDICAL | | | | | | CENTER - | | | | | | LABORATORY | | + +-------+ + + + | % Basophils | 0.8 | 0.0 - 1.0 % | [facility] | | | | | | [facility] | | | | | | MEDICAL | | | | | | CENTER - | | | | | | LABORATORY | | + +-------+ + + + | Absolute | 3.00 | 1.80 - 8.50 | [facility] | | | Neutrophils | | K/uL | [facility] | | | | | | MEDICAL | | | | | | CENTER - | | | | | | LABORATORY | | + +-------+ + + + | Absolute | 2.30 | 0.60 - 3.20 | [facility] | | | Lymphocytes | | K/uL | [facility] | | | | | | MEDICAL | | | | | | CENTER - | | | | | | LABORATORY | | + +-------+ + + + | Absolute | 0.30 [...] + + | [facility] | [address] | [place] | [phone] | | [facility] | | [address] | | | - LABORATORY | | | | + + + + + documented in this encounter Visit Diagnoses + + | Diagnosis | + + | PID (pelvic inflammatory disease) - Primary Unspecified inflammatory disease of | | female pelvic organs and tissues | + + documented in this encounter Administered Medications + +--------+ + +------+------+ | Medication Order | MAR | Action | Dose | Rate | Site | | | Action | Date | | | | + +--------+ + +------+------+ | azithromycin (ZITHROMAX) tablet | Given | 02/16/20 | 1,000 mg | | | | 1,000 mg 1,000 mg, Oral, ONCE, | | 16 2:40 | | | | | 02/16/16 at 0205, For 1 dose, | | AM PDT | | | | | Indications: Chlamydia Infection | | | | | | + +--------+ + +------+------+ +---+---+ | | | +---+---+ + +-------+ +--------+---+ + | cefTRIAXone (ROCEPHIN) 250 mg | Given | 02/16/20 | 250 mg | | Deltoid- | | in lidocaine IM syringe (350 | | 16 3:08 | | | Right | | mg/mL) 250 mg, Intramuscular, | | AM PDT | | | | | ONCE, 02/16/16 at 0205, For 1 | | | | | | | dose, Keep in refrigerator. For | | | | | | | IM use only., Indications: | | | | | | | Gonorrhea | | | | | | + +-------+ +--------+---+ + +---+---+ | | | +---+---+ + +-------+ +--------+---+---+ | cefTRIAXone (ROCEPHIN) 250 mg | Given | 02/16/20 | 250 mg | | | | injection Starting 02/16/16 | | 16 2:40 | | | | | at 0231, For 1 dose, KESHIA, | | AM PDT | | | | | MAKAYLA L: dmitry magallanes, | | | | | | + +-------+ +--------+---+---+ +---+---+ | | | +---+---+ + +-------+ +--------+---+---+ | HYDROmorphone (DILAUDID) | Given | 02/15/20 | 0.5 mg | | | | injection 0.5 mg 0.5 mg, | | 16 10:53 | | | | | Intravenous, ONCE, [place] 02/15/16 at | | PM PDT | | | | | 2255, For 1 dose | | | | | | + +-------+ +--------+---+---+ +---+---+ | | | +---+---+ + +-------+ +--------+---+---+ | HYDROmorphone (DILAUDID) | Given | 02/16/20 | 0.5 mg | | | | injection 0.5 mg 0.5 mg, | | 16 1:08 | | | | | Intravenous, ONCE, [facility] 02/16/16 at | | AM PDT | | | | | 0040, For 1 dose | | | | | | + +-------+ +--------+---+---+ +---+---+ | | | +---+---+ + +-------+ +--------+---+---+ | HYDROmorphone (DILAUDID) | Given | 02/16/20 | 0.5 mg | | | | injection 0.5 mg 0.5 mg, | | 16 2:40 | | | | | Intravenous, ONCE, [facility] 02/16/16 at | | AM PDT | | | | | 0215, For 1 dose | | | | | | + +-------+ +--------+---+---+ +---+---+ | | | +---+---+ + +-------+ +------+---+---+ | iodixanol (VISIPAQUE 320) 320 | Given | 02/16/20 | 1 mL | | | | mg/mL injection 1 mL 1 mL, | | 16 1:10 | | | | | Intravenous, ONCE PRN, Other, | | AM PDT | | | | | Starting 02/15/16 at 2334, For | | | | | | | 1 dose, [facility] [place] | | | | | | + +-------+ +------+---+---+ +---+---+ | | | +---+---+ + +-------+ +--------+---+---+ | iohexol (OMNIPAQUE 350) 350 | Given | 02/15/20 | 85 mLs | | | | mg/mL injection 85 mL 85 mL, | | 16 11:35 | | | | | Intravenous, ONCE PRN, Other, | | PM PDT | | | | | Starting [place] 02/15/16 at 2334, For | | | | | | | 1 dose, [place] | | | | | | + +-------+ +--------+---+---+ +---+---+ | | | +---+---+ + +-------+ +------+---+---+ | morphine injection 2 mg 2 mg, | Given | 02/15/20 | 2 mg | | | | Intravenous, ONCE, [place] 02/15/16 at | | 16 10:03 | | | | | 2135, For 1 dose | | PM PDT | | | | + +-------+ +------+---+---+ +---+---+ | | | +---+---+ + +-------+ +------+---+---+ | ondansetron (ZOFRAN) injection | Given | 02/15/20 | 4 mg | | | | 4 mg 4 mg, Intravenous, ONCE, | | 16 10:03 | | | | | [place] 02/15/16 at 2135, For 1 dose | | PM PDT | | | | + +-------+ +------+---+---+ +---+---+ | | | +---+---+ + +---------+ +--------+-------+---+ | sodium chloride 0.9% (NS) bolus | New Bag | 02/15/20 | 1,000 | 500 | | | 1,000 mL 1,000 mL, Intravenous, | | 16 10:02 | mLs | mL/hr | | | Administer over 2 Hours, ONCE, | | PM PDT | | | | | 02/15/16 at 2135, For 1 dose | | | | | | + +---------+ +--------+-------+---+ +---+---+ | | | +---+---+ documented in this encounter
--- OUTSIDE RECORDS SUMMARY | ~2019-10-30 | XMS | Encounter Summary ---
Demographics + + + | Address | [address] | | | [place] [address] | + + + | Home Phone | | + + + | Preferred Language | Unknown | + + + | Marital Status | Single | + + + | Taoism Affiliation | 1013 | + + + | Race | Unknown | + + + | Ethnic Group | Unknown | + + + Author + + + | Author | [facility] | | | and Johnana | + + + | Organization | [facility] | | [...] | | | | | [place] [address] | | + + + + + | Ab Romykia | ECON | Unknown | | + + + + + Care Team Providers + +------+ + | Care Training Mgr Name | Role | Phone | + +------+ + | John Rhodes | PCP | | + +------+ + Reason for Visit + + + | Reason | Comments | + + + | Back Pain | | + + + | Abdominal Pain | | + + + Encounter Details +--------+ + + + + | Date | Type | Department | Care Team | Description | +--------+ + + + + | 05/17/ | Emergency | [facility] | Billy Munoz, | Abdominal pain, | | 2016 | | MED CTR [facility] | [place] [address] | unspecified location | | | | CENTER [address] | [place] | (Primary Dx) | | | | [place] | [address] | | | | | [address] | | | | | | [phone] | | | +--------+ + + + [...] + | Blood Pressure | 121/81 | 05/17/2016 8:30 PM | | | | | PST | | + + + + + | Pulse | 109 | 05/17/2016 8:30 PM | | | | | PST | | + + + + + | Temperature | 36.4 C (97.6 F) | 05/17/2016 8:25 PM | | | | | PST | | + + + + + | Respiratory Rate | 16 | 05/17/2016 8:25 PM | | | | | PST | | + + + + + | Oxygen Saturation | 99% | 05/17/2016 8:30 PM | | | | | PST | | + + + + + | Inhaled Oxygen | - | - | | | Concentration | | | | + + + + + | Weight | 52.2 kg (115 lb) | 05/17/2016 8:25 PM | | | | | PST | | + + + + + | Height | 162.6 cm (5' 4") | 05/17/2016 8:25 PM | | | | | PST | | + + + + + | Body Mass Index | 19.74 | 05/17/2016 8:25 PM | | | | | PST | | + + + + + documented in this encounter Discharge Instructions AttachmentsThe following attachments cannot be sent through Care Everywhere.ABDOMINAL PAIN, ADULT (BHUTANESE)documented in this encounter Medications at Time of [...] INFORMATION | CELSO | Routin | | 05/17/2016 8:03 PM | | EXCHANGE | | e | | PST | + +------+--------+ + + documented as of this encounter Procedures + +--------+ + + + | Procedure Name | Priori | Date/Time | Associated Diagnosis | Comments | | | ty | | | | + +--------+ + + + | CT ABDOMEN PELVIS W | STAT | 05/17/2016 | | Results for this | | CONTRAST | | 9:16 PM | | procedure are in the | | | | PST | | results section. | + +--------+ + + + | CBC NO DIFFERENTIAL | STAT | 05/17/2016 | | Results for this | | | | 8:49 PM | | procedure are in the | | | | PST | | results section. | + +--------+ + + + | POCT TEST, | STAT | 05/17/2016 | | Results for this | | URINE, QUAL | | 8:49 PM | | procedure are in the | | | | PST | | results section. | + +--------+ + + + | LIPASE | STAT | 05/17/2016 | | Results for this | | | | 8:49 PM | | procedure are in the | | | | PST | | results section. | + +--------+ + + + | COMPREHENSIVE | STAT | 05/17/2016 | | Results for this | | METABOLIC PANEL | | 8:49 PM | | procedure are in the | | | | PST | | results section. | + +--------+ + + + | POCT URINALYSIS, | STAT | 05/17/2016 | | Results for this | | AUTO WITH CONF | | 8:48 PM | | procedure are in the | | | | PST | | results section. | + +--------+ + + + | ED INFORMATION | Routin | 05/17/2016 | | | | EXCHANGE | e | 8:03 PM | | | | | | PST | | | + +--------+ + + + documented in this encounter Results CT Abdomen Pelvis w Contrast (05/17/2016 9:16 PM [facility]) + + | Specimen | + + | | + + + + + | Narrative | Performed At | + + + | ENHANCED CT ABDOMEN AND PELVIS 05/17/2016 9:07 PM CLINICAL | [facility] | | HISTORY: BACK AND ABDOMINAL PAIN COMPARISON: CT abdomen | | | and pelvis #25 and October 07, 2015, as well as December 2011 TECHNIQUE: | | | Axial images are performed through the abdomen and pelvis following | | | the uneventful intravenous administration of 85 mL Omnipaque 350 | | | contrast. Coronal and sagittal reformations are also | | | performed. ABDOMEN FINDINGS: Imaged lung bases and mediastinum | | | are unremarkable. The previously described 11 mm rounded | | | hypodensity in the anterior liver demonstrates long-term stability | | | consistent with benignity. The liver, partially contracted | | | gallbladder, spleen and adjacent splenule, pancreas, adrenal glands | | | and kidneys are otherwise unremarkable. No renal or ureteral | | | calculus or hydronephrosis is evident. There is a moderate volume of | | | stool in the right colon without suspicion for bowel obstruction or | | | visible inflammation. The appendix may be surgically absent. The | | | stomach and small bowel are unremarkable. No free air, ascites, | | | pathologic lymph node enlargement or hernia is evident. The | | | abdominal vasculature is unremarkable. There is rightward lumbar | | | curvature. A transitional lumbosacral vertebra demonstrates | | | pseudoarthrosis formation between its right transverse process and the | | | upper sacrum. Bones and soft tissues are otherwise unremarkable. | | | PELVIS FINDINGS: The previously described rounded, | | | heterogeneously hypoattenuating structure in the left adnexal region | | | is similar in size and appearance, measuring up to 2.9 cm, while the | | | hypoattenuating right adnexal structure is no longer apparent. The | | | bladder and uterus are unremarkable. No free air, free fluid or | | | hernia is evident. Mildly prominent bilateral inguinal lymph nodes | | | are stable, measuring up to 10 mm short axis. The bones and soft | | | tissues are unremarkable. IMPRESSION - 1. MODERATE RIGHT | | | COLONIC STOOL RETENTION WITHOUT EVIDENCE OF BOWEL OBSTRUCTION OR | | | VISIBLE INFLAMMATION. 2. INTERVAL RESOLUTION OF A | | | HYPOATTENUATING RIGHT ADNEXAL LESION AND SIMILAR HETEROGENEOUSLY | | | HYPOATTENUATING STRUCTURE IN THE LEFT ADNEXAL REGION COMPARED WITH | | | IMAGING OF 2015. CONSIDER FOLLOW-UP PELVIC SONOGRAPHY. | | | THERE IS NO FREE FLUID. 3. STABLE SMALL HYPOATTENUATING LIVER | | | LESION POTENTIALLY REFLECTING A HEMANGIOMA SUGGESTED PREVIOUSLY. | | | 4. SCOLIOSIS AND TRANSITIONAL LUMBOSACRAL VERTEBRA. | | | Preliminary results of this study were reported to the ER staff by the | | | [facility] radiologist on May 17, 2016 at 2137 hours. | | | Dictated and Signed by: Brad Cline MD Electronically signed: | | | 05/18/2016 9:07 AM | | + + + + + | Procedure Note | + + | Honorio, Rad Results In - 05/18/2016 9:10 AM PST [address] ABDOMEN AND PELVIS | | 05/17/2016 9:07 PM CLINICAL HISTORY: BACK AND ABDOMINAL PAIN COMPARISON: CT | | abdomen and pelvis #25 and October 07, 2015, as well as December 2011 TECHNIQUE: Axial images | | are performed through the abdomen and pelvis followingthe uneventful intravenous | | administration of 85 mL Omnipaque 350 contrast. Coronal and sagittal reformations | | are also performed. ABDOMEN FINDINGS: Imaged lung bases and mediastinum are | | unremarkable. Thepreviously described 11 mm rounded hypodensity in the anterior | | liverdemonstrates long-term stability consistent with benignity. The liver,partially | | contracted gallbladder, spleen and adjacent splenule, pancreas,adrenal glands and | | kidneys are otherwise unremarkable. No renal or ureteralcalculus or hydronephrosis is | | evident. There is a moderate volume of stool inthe right colon without suspicion for | | bowel obstruction or visible inflammation. The appendix may be surgically absent. The | | stomach and small bowel areunremarkable. No free air, ascites, pathologic lymph node | | enlargement or herniais evident. The abdominal vasculature is unremarkable. There is | | rightwardlumbar curvature. A transitional lumbosacral vertebra | | demonstratespseudoarthrosis formation between its right transverse process and the | | uppersacrum. Bones and soft tissues are otherwise unremarkable. PELVIS FINDINGS: The | | previously described rounded, heterogeneouslyhypoattenuating structure in the left | | adnexal region is similar in size andappearance, measuring up to 2.9 cm, while the | | hypoattenuating right adnexalstructure is no longer apparent. The bladder and uterus | | are unremarkable. Nofree air, free fluid or hernia is evident. Mildly prominent | | bilateral inguinallymph nodes are stable, measuring up to 10 mm short axis. The bones | | and softtissues are unremarkable. IMPRESSION - 1. MODERATE RIGHT COLONIC STOOL | | RETENTION WITHOUT EVIDENCE OF BOWEL OBSTRUCTIONOR VISIBLE INFLAMMATION.2. INTERVAL | | RESOLUTION OF A HYPOATTENUATING RIGHT ADNEXAL LESION AND SIMILARHETEROGENEOUSLY | | HYPOATTENUATING STRUCTURE IN THE LEFT ADNEXAL REGION COMPAREDWITH IMAGING OF | | 2015. CONSIDER FOLLOW-UP PELVIC SONOGRAPHY. THERE ISNO FREE FLUID.3. STABLE SMALL | | HYPOATTENUATING LIVER LESION POTENTIALLY REFLECTING AHEMANGIOMA SUGGESTED | | PREVIOUSLY.4. SCOLIOSIS AND TRANSITIONAL LUMBOSACRAL VERTEBRA.Preliminary results of | | this study were [facility] | | 2015 at 2137 hours.Dictated and Signed by: Brad Cline MD Electronically signed: | | 05/18/2016 9:07 AM | |IMPRESSION - | |1. MODERATE RIGHT COLONIC STOOL RETENTION WITHOUT EVIDENCE OF BOWEL OBSTRUCTION | |OR VISIBLE INFLAMMATION. | | | |2. INTERVAL RESOLUTION OF A HYPOATTENUATING RIGHT ADNEXAL LESION AND SIMILAR | |HETEROGENEOUSLY HYPOATTENUATING STRUCTURE IN THE LEFT ADNEXAL REGION COMPARED | |WITH IMAGING OF 2015. CONSIDER FOLLOW-UP PELVIC SONOGRAPHY. THERE IS | |NO FREE FLUID. | | | |3. STABLE SMALL HYPOATTENUATING LIVER LESION POTENTIALLY REFLECTING A | |HEMANGIOMA SUGGESTED PREVIOUSLY. | | | |4. SCOLIOSIS AND TRANSITIONAL LUMBOSACRAL VERTEBRA. | | | |Preliminary results of this study were reported [facility] the ER [facility] | |[facility]iologist on May 17, 2016 at 2137 hours. | | | |Dictated and Signed by: Brad Cline MD | | Electronically signed: 05/18/2016 9:07 AM | + + + +---------+ + + | Performing | Address | City/State/Zipcode | Phone Number | | Organization | | | | + +---------+ + + | [facility] | | | | + +---------+ + + POCT Test, Urine, QUAL (05/17/2016 8:49 PM PST) + + + + + [...] | 1.010, 1.015, | | | | [place], | | 1.020, 1.025 | | | | POC | | | | | + + + + + + | Lot Number | [id number] | | | | + + + + + + | Expiration | 12/2017 | | | | | Date | | | | | + + + + + + + + | Specimen | + + | Urine specimen | | (specimen) | + + Lipase (05/17/2016 8:49 PM PST) + +-------+ + + + | Component | Value | Ref Range | Performed | Pathologist | | | | | At | Signature | + +-------+ + + + | Lipase | 27 | 0 - 60 U/L | [facility] [...] [address] | [place] | [phone] | | [facility] | | [address] | | | - LABORATORY | | | | + + + + + Comprehensive Metabolic Panel (05/17/2016 8:49 PM PST) + + + + + + | Component | Value | Ref Range | Performed | Pathologist | | | | | At | Signature | + + + + + + | Na | 139 | 136 - 149 | [facility] | [...] + + + + | CO2 | 23 (L) | 24 - 31 mmol/L | [facility] | | | | | | [facility] | | | | | | MEDICAL | | | | | | CENTER - | | | | | | LABORATORY | | + + + + + + | Anion Gap | 7 | 3 - 16 mmol/L | [facility] [...] + + + + | Creatinine | 0.58 (L) | 0.60 - 1.30 | [facility] | | | | | mg/dL | [facility] | | | | | | MEDICAL | | | | | | CENTER - | | | | | | LABORATORY | | + + + + + + | eGFR if not | >60Comment: GLOMERULAR | >=60 | [facility] | | | | FILTRATION | mL/min/1.73m2 | [facility] | | | PRYDEINIG | RATE,ESTIMATED | | MEDICAL | | | | mL/min/1.51s7Qbuj than | | CENTER - | | [...] + + + + | Calcium | 8.5 | 8.3 - 10.5 | [facility] | [...] + + + + | Bilirubin | 1.2Comment: This is an | 0.1 - 1.5 [...] + + + + | Total | 6.0 | 6.0 - 7.8 g/dL | [facility] [...] + + + + | Alkaline | 72Comment: This is an | 40 - 110 [...] + + + + | Albumin/Bianca | 1.7 | 0.8 - 2.0 | [facility] | | | bulin Ratio | | | [facility] | | | | | | MEDICAL | | | | | | CENTER - | | | | | | LABORATORY | | + + + + + + | BUN/Creatin | 13.8 | | [facility] | | | ine Ratio | | | [facility] | | [...] [address] | [place] | [phone] | | [facility] | | [address] | | | - LABORATORY | | | | + + + + + CBC no Differential (05/17/2016 8:49 PM PST) + + + + + + | Component | Value | Ref Range | Performed | Pathologist | | | | | At | Signature | + + + + + + | WBC | 7.0 | 4.0 - 11.0 K/uL | [facility] | | | | | | [facility] | | | | | | MEDICAL | | | | | | CENTER - | | | | | | LABORATORY | | + + + + + + | RBC | 3.65 (L) | 3.70 - 5.20 | [facility] | | | | | M/uL | [facility] | | | | | | MEDICAL | | | | | | CENTER - | | | | | | LABORATORY | | + + + + + + | Hemoglobin | 11.8 | 11.5 - 16.0 | [facility] | | | | | g/dL | [facility] | | | | | | MEDICAL | | | | | | CENTER - | | | | | | LABORATORY | | + + + + + + | Hematocrit | 34.8 | 34.0 - 47.0 % | [facility] | | | | | | [facility] | | | | | | MEDICAL | | | | | | CENTER - | | | | | | LABORATORY | | + + + + + + | MCV | 95.2 | 83.0 - 101.0 fL | [facility] | | | | | | [facility] | | | | | | MEDICAL | | | | | | CENTER - | | | | | | LABORATORY | | + + + + + + | MCH | 32.4 | 28.0 - 35.0 pg | [facility] | | | | | | [facility] | | | | | | MEDICAL | | | | | | CENTER - | | | | | | LABORATORY | | + + + + + + | MCHC | 34.0 | 32.0 - 36.0 | [facility] | | | | | g/dL | [facility] | | | | | | MEDICAL | | | | | | CENTER - | | | | | | LABORATORY | | + + + + + + | RDW-CV | 12.4 | <15.0 % | [facility] | | | | | | [facility] | | | | | | MEDICAL | | | | | | CENTER - | | | | | | LABORATORY | | + + + + + + | Platelet | [address] | [address] | [place] | [phone] | | [facility] | | [address] | | | - LABORATORY | | | | + + + + + POCT Urinalysis Dipstick Automated (05/17/2016 8:48 PM PST) + + + + + [...] 1.001 - 1.030 | | | | [place], | | | | | | UA, [...] | + + | Abdominal pain, unspecified location - Primary | + + documented in this encounter Administered Medications + +--------+ +---------+------+------+ | Medication Order | MAR | Action | Dose | Rate | Site | | | Action | Date | | | | + +--------+ +---------+------+------+ | HYDROcodone-acetaminophen | Given | 05/17/20 | 2 | | | | (NORCO) 5-325 mg per tablet 2 | | 16 9:36 | tablets | | | | tablet 2 tablet, Oral, ONCE, Mon | | PM PST | | | | | 05/17/16 at 2135, For 1 dose | | | | | | + +--------+ +---------+------+------+ +---+---+ | | | +---+---+ + +-------+ +--------+---+---+ | iohexol (OMNIPAQUE 350) 350 | Given | 05/17/20 | 85 mLs | | | | mg/mL injection 85 mL 85 mL, | | 16 9:17 | | | | | Intravenous, ONCE PRN, Other, for | | PM PST | | | | | CT contrast study, Starting Mon | | | | | | | 05/17/16 at 2116, For 1 dose, | | | | | | | Radiology | | | | | | + +-------+ +--------+---+---+ +---+---+ | | | +---+---+ + +---------+ +--------+-------+---+ | sodium chloride 0.9% (NS) bolus | New Bag | 05/17/20 | 1,000 | 2000 | | | 1,000 mL 1,000 mL, Intravenous, | | 16 8:55 | mLs | mL/hr | | | Administer over 30 Minutes, | | PM PST | | | | | ONCE, 05/17/16 at 2040, For 1 | | | | | | | dose | | | | | | + +---------+ +--------+-------+---+ +---+---+ | | | +---+---+ + +------+ +--------+-------+---+ | sodium chloride 0.9% (NS) bolus | Push | 05/17/20 | 20 mLs | 1200 | | | 20 mL 20 mL, Intravenous, | | 16 9:17 | | mL/hr | | | Administer over 1 Minutes, ONCE | | PM PST | | | | | PRN, for CT contrast study, | | | | | | | Starting 05/17/16 at 2116, | | | | | | | For 1 dose, Radiology | | | | | | + +------+ +--------+-------+---+ +---+---+ | | | +---+---+ documented in this encounter
--- OUTSIDE RECORDS SUMMARY | ~2019-10-30 | XMS | Encounter Summary ---
Demographics + + + | Address | [address] | | | [place] [address] | + + + | Home Phone | | + + + | Preferred Language | Unknown | + + + | Marital Status | Single | + + + | Christian Affiliation | 1013 | + + + | Race | Unknown | + + + | Ethnic Group | Unknown | + + + Author + + + | Author | [facility] | | | and [place] | + + + | Organization | [facility] | | [...] | | | | | [place] [address] | | + + + + + | Ab Romykia | ECON | Unknown | | + + + + + Care Team Providers + +------+ + | Care Cable Mechanic Name | Role | Phone | [...] | 05/26/ | Telephone | [facility] | Pj Abdi, | ED | | 2018 | | [facility] | [address] | | | | | [address] | [place] | | | | | [place] | [address] | | | | | [address] | | | | | | [phone] | | | +--------+ + + + [...]
--- OUTSIDE RECORDS SUMMARY | ~2019-10-30 | XMS | Encounter Summary ---
Demographics + + + | Address | [address] | | | [place] [address] | + + + | Home Phone [...] | | | | | [place] [address] | | + + + + + | Ab Romykia | ECON | Unknown | | + + + + + Care Team Providers + +------+ + | Care Seat Nailer Name | Role | Phone | + [...] + | 01/26/ | Telephone | [facility] | Pj Abdi, | Back Pain (Pain | | 2017 | | [facility]IC[facility] [place] | [address] | medication is not | | | | [address] | [place] | helping with back | | | | [place] | [address] | pain relief.) | | | | [address] | | | | | | [phone] | | | +--------+ + + + [...]
--- OUTSIDE RECORDS SUMMARY | ~2019-10-30 | XMS | Encounter Summary ---
Demographics + + + | Address | [address] | | | [place] [address] | + + + | Home Phone [...] + + + | Author | [facility] | | | and [place] | + + + | Organization | [facility] | | | [...] | | | | | [place] [address] | | + + + + + | Ab Romykia | ECON | Unknown | | + + + + + Care Team Providers + +------+ + | Care Stage Electrician Name | Role | Phone | + [...] + | 07/15/ | Telephone | [facility] | Magdalena Grimes, | Results | | 2015 | | CARE [address] | Need updated | | | | | [place] | address | | | | | [address] | | | | | | [phone] | | | +--------+ + + + [...]
--- OUTSIDE RECORDS SUMMARY | ~2019-10-30 | XMS | Encounter Summary ---
Demographics + + + | Address | [address] | | | [place] [address] | + + + | Home Phone [...] | | | | | [place] [address] | | + + + + + | Ab Bunch | ECON | Unknown | | + + + + + Care Team Providers + +------+ + | Care Commercial Account Officer Name | Role | Phone | + +------+ + | Mike Fernández MD | PCP | | + +------+ + Encounter Details +--------+ + + + + | Date | Type | Department | Care Team | Description | +--------+ + + + + | 07/22/ | Hospital | [facility] | Eric Lozano, | | | 2012 | Encounter | MED CTR EM[facility]Y | [place] [address] | | | | | CENTER [address] | [place], [place] | | | | | [place], [place] | [address] | | | | | [address] | | | | | | [phone] | | | +--------+ + + + [...]
--- OUTSIDE RECORDS SUMMARY | ~2019-10-30 | XMS | Encounter Summary ---
Demographics + + + | Address | [address] | | | [place] [address] | + + + | Home Phone [...] | | | | | [place] [address] | | + + + + + | Ab Bunch | ECON | Unknown | | + + + + + Care Team Providers + +------+ + | Care Airline Flight Attendant Name | Role | Phone | + +------+ + | Mike Fernández MD | PCP | | + +------+ + Encounter Details +--------+ + + + + | Date | Type | Department | Care Team | Description | +--------+ + + + + | 07/22/ | Hospital | [facility] | Eric Lozano, | | | 2012 | Encounter | MED CTR EMER[facility]ENCY | [place] [address] | | | | | CENTER [address] | [place], [place] | | | | | [place], [place] | [address] | | | | | [address] | | | | | | [phone] | | | +--------+ + + + [...]
--- OUTSIDE RECORDS SUMMARY | ~2019-10-30 | XMS | Encounter Summary ---
Demographics + + + | Address | [address] | | | [place] [address] | + + + | Home Phone [...] | | | | | [place] [address] | | + + + + + | Ab Bunch | ECON | Unknown | | + + + + + Care Team Providers + +------+ + | Care Reconciliation Manager Name | Role | Phone | [...] + + | Closed | Specialty | Obstetrics | Diagnoses | Ernst, | | | | Services | and | Pelvic pain | Stas | Princess, | | | Required | Gynecology | | MD Mike | Nikko King, | | | | | | [address] | DO [address] | | | | | [address] [place] | [address] | | | | | | [place], [place] | [place], | | | | | | [address] | [place] [address] | | | | | | Phone: | Phone: | | | | | | [phone] | [phone] | | | | | | Fax: | Fax: | | | | | | [phone] | [phone] | +--------+ + + + + + Reason for Visit + + + | Reason | Comments | + + + | Back Pain | 0600 yesterday | + + + | Abdominal Pain | | + + + Encounter Details +--------+ + + + + | Date | Type | Department | Care Team | Description | +--------+ + + + + | 12/13/ | Emergency | [facility] | Stas Dukes | Pelvic pain (Primary | | 2018 | | MED CTR EM[facility]Y | MD Mike [address] | Dx); Abdominal | | | | CENTER [address] | [address] [place] | pain, unspecified | | | | [place], [place] | [place] [address] | abdominal location | | | | [address] | [phone] | | | | | [phone] | | | +--------+ + + + [...] + + + | Blood Pressure | 118/74 | 12/13/2017 1:58 AM | | | | | PDT | | + + + + + | Pulse | 74 | 12/13/2017 1:58 AM | | | | | PDT | | + + + + + | Temperature | 37 C (98.6 F) | 12/13/2017 12:35 AM | | | | | PDT | | + + + + + | Respiratory Rate | 16 | 12/13/2017 1:58 AM | | | | | PDT | | + + + + + | Oxygen Saturation | 98% | 12/13/2017 1:58 AM | | | | | PDT | | + + + + + | Inhaled Oxygen | - | - | | | Concentration | | | | + + + + + | Weight | 59 kg (130 lb) | 12/13/2017 12:35 AM | | | | | PDT | | + + + + + | Height | 162.6 cm (5' 4") | 12/13/2017 12:35 AM | | | | | PDT | | + + + + + | Body Mass Index | 22.31 | 12/13/2017 12:35 AM | | | | | PDT | | + + + + + documented in this encounter Discharge Instructions AttachmentsThe following attachments cannot be sent through Care Everywhere.Abdominal Pain, Adult (Sierra Leonean)documented in this encounter Medications at Time of [...] (ULTRAM) | Take 1 tablet by | 10 | 0 | 12/14/19 | | | 50 mg tablet | mouth Twice daily | tablet | | 18 | 8 | | | as needed for Pain | | | | | | | for up to 5 days. | | | | | + + + +---------+ + + documented as of this encounter Plan of Treatment + +------+--------+ + + | Name | Type | Priori | Associated Diagnoses | Date/Time | | | | ty | | | + +------+--------+ + + | ED INFORMATION | CELSO | Routin | | 12/12/2017 11:24 PM | | EXCHANGE | | e | | PDT | + +------+--------+ + + + + +--------+ + + | Name | Type | Priori | Associated Diagnoses | Order Schedule | | | | ty | | | + + +--------+ + + | Obstetrics / | Outpatient | Routin | Pelvic pain | Ordered: 12/13/2017 | | Gynecology, External | Referral | e | | | | - AMB Referral | | | | | + + +--------+ + + documented as of this encounter Procedures + +--------+ + + + | Procedure Name | Priori | Date/Time | Associated Diagnosis | Comments | | | ty | | | | + +--------+ + + + | URINALYSIS WITH | STAT | 12/13/2017 | | Results for this | | MICROSCOPIC WITH | | 1:28 AM | | procedure are in the | | CULTURE IF INDICATED | | PDT | | results section. | + +--------+ + + + | CBC WITH | STAT | 12/13/2017 | | Results for this | | DIFFERENTIAL | | 1:20 AM | | procedure are in the | | | | PDT | | results section. | + +--------+ + + + | , SERUM, | STAT | 12/13/2017 | | Results for this | | QUAL | | 1:20 AM | | procedure are in the | | | | PDT | | results section. | + +--------+ + + + | COMPREHENSIVE | STAT | 12/13/2017 | | Results for this | | METABOLIC PANEL | | 1:20 AM | | procedure are in the | | | | PDT | | results section. | + +--------+ + + + | ED INFORMATION | Routin | 12/12/2017 | | | | EXCHANGE | e | 11:24 PM | | | | | | PDT | | | + +--------+ + + + +---+--------+ | | | | | Proced | | | ure | | | Note - | | | Thomas, | | | Lab In | | | | | | Hlseve | | | n - | | | 07/23/ | | | 2018 | | | 11:25 | | | PM PDT | | [...] | | | FICATI | | | ON?07/ | | | 23/201 | | | 8 | | | 23:21? | | | SHAH | | | LSH, | | | SABRIN | | | A | | | K?MRN: | | | | | | [id number] | | | [id number] | | | his | | | [...] | | | ent/a9 | | | [id number] | | | [id number] | | | [...] | | | ified | | | Apr | | | [...] | | | sed | | | 225 | | | Unique | | | [...] +---+--------+ documented in this encounter Results Urinalysis with Microscopic with Culture if Indicated (12/13/2017 1:28 AM PDT) + + + + + + | Component | Value | Ref Range | Performed | Pathologist | | | | | At | Signature | + + + + + + | Color, | Colorless (A) | Light Yellow, | [facility] | | [...] + + + + | Specific | 1.002 | 1.001 - 1.030 | [facility] | | | [place], | | | [facility] | | [...] + + + + | Squamous | 5-10 (A) | 0 - 2 /LPF | [...] [address] | [place] | [phone] | | [facility] | | [address] | | | - LABORATORY | | | | + + + + + , Serum, Qual (12/13/2017 1:20 AM PDT) + + + + + + | Component | Value | Ref Range | Performed | Pathologist | | | | | At | Signature | + + + + + + | hCG Screen, | Negative | Negative | [facility] | | | Serum | | | [facility] | | | | | [...] [address] | [place] | [phone] | | [facility] | | [address] | | | - LABORATORY | | | | + + + + + Comprehensive Metabolic Panel (12/13/2017 1:20 AM PDT) + + + + + [...] | | | | mmol/L | [facility] | | | | | | MEDICAL [...] + + + + | Glucose | 103 | 70 - 109 mg/dL | [facility] | | | | | | [facility] | | | | | | MEDICAL | | | | | | CENTER - | | | | | | LABORATORY | | + + + + + + | BUN | 7 | 7 - 18 mg/dL | [facility] | | | | | | [facility] | | | | | | MEDICAL | | | | | | CENTER - | | | | | | LABORATORY | | + + + + + + | Creatinine | 0.76 | 0.60 - 1.30 | [facility] | | | | | mg/dL | [facility] | | | | | | MEDICAL | | | | | | CENTER - | | | | | | LABORATORY | | + + + + + + | eGFR if not | >60Comment: GLOMERULAR | >=60 | [facility] | | | | FILTRATION | mL/min/1.73m2 | [facility] | | | MONEGASQUE | RATE,ESTIMATED | | MEDICAL | | | | mL/min/1.04z5Exer than | | CENTER - | | [...] + + + + | Calcium | 8.7 | 8.3 - 10.5 | [facility] | | | | | mg/dL | [facility] | | | | | | MEDICAL | | | | | | CENTER - | | | | | | LABORATORY | | + + + + + + | Albumin | 3.3 | 3.2 - 5.0 g/dL | [facility] [...] + + + + | Total | 5.2 (L) | 6.0 - 7.8 g/dL | [facility] | | | Protein | | | [facility] | | | | | | MEDICAL | | | | | | CENTER - | | | | | | LABORATORY | | + + + + + + | AST | 18Comment: This is an | 10 - 42 [...] + + + + | Alkaline | 56Comment: This is an | 40 - 110 [...] [address] | [place] | [phone] | | [facility] | | [address] | | | - LABORATORY | | | | + + + + + CBC with Differential (12/13/2017 1:20 AM PDT) + + + + + + | Component | Value | Ref Range | Performed | Pathologist | | | | | At | Signature | + + + + + + | WBC | 14.1 (H) | 4.0 - 11.0 K/uL | [facility] | | | | | | [facility] | | | | | | MEDICAL | | | | | | CENTER - | | | | | | LABORATORY | | + + + + + + | RBC | 3.53 (L) | 3.70 - 5.20 | [facility] | | | | | M/uL | [facility] | | | | | | MEDICAL | | | | | | CENTER - | | | | | | LABORATORY | | + + + + + + | Hemoglobin | 11.2 (L) | 11.5 - 16.0 | [facility] | | | | | g/dL | [facility] | | | | | | MEDICAL | | | | | | CENTER - | | | | | | LABORATORY | | + + + + + + | Hematocrit | 32.2 (L) | 34.0 - 47.0 % | [facility] | | | | | | [facility] | | | | | | MEDICAL | | | | | | CENTER - | | | | | | LABORATORY | | + + + + + + | MCV | 91.1 [...] + + + + | MCHC | 34.7 | 32.0 - 36.0 | [facility] | | | | | g/dL | [facility] | | | | | | MEDICAL | | | | | | CENTER - | | | | | | LABORATORY | | + + + + + + | RDW-CV | 13.8 | <15.0 % | [facility] | | | | | | [facility] | | | | | | MEDICAL | | | | | | CENTER - | | | | | | LABORATORY | | + + + + + + | Platelet | 248 | 140 - 440 K/uL | [facility] | | | Count | | | [facility] | | | | | | MEDICAL | | | | | | CENTER - | | | | | | LABORATORY | | + + + + + + | MPV | 7.7 | fL | [facility] | | | | | | [facility] | | | | | | MEDICAL | | | | | | CENTER - | | | | | | LABORATORY | | + + + + + + | % | 78.2 | 45.0 - 82.0 % | [facility] | | | Neutrophils | | | [facility] | | | | | | MEDICAL | | | | | | CENTER - | | | | | | LABORATORY | | + + + + + + | % | 16.2 (L) | 20.0 - 45.0 % | [facility] | | | Lymphocytes | | | [facility] | | | | | | MEDICAL | | | | | | CENTER - | | | | | | LABORATORY | | + + + + + + | % Monocytes | 2.9 (L) | 4.0 - 12.0 % | [facility] | | | | | | [facility] | | | | | | MEDICAL | | | | | | CENTER - | | | | | | LABORATORY | | + + + + + + | % | 2.2 | 0.0 - 5.0 % | [facility] [...] + + + + | Absolute | 11.00 (H) | 1.80 - 8.50 | [facility] | | | Neutrophils | | K/uL | [facility] | | | | [...] | Absolute | 0.30 | 0.00 - 0.40 | [facility] | | | Eosinophils | | K/uL | [facility] | | | | | | MEDICAL | | | | | | CENTER - | | | | | | LABORATORY | | + + + + + + | Absolute | 0.10 | 0.00 - 0.10 | [facility] | | | Basophils | | K/uL | [facility] | [...] [address] | [place] | [phone] | | [facility] | | [address] | | | - LABORATORY | | | | + + + + + documented in this encounter Visit Diagnoses + + | Diagnosis | + + | Pelvic pain - Primary | + + | Abdominal pain, unspecified abdominal location | + + documented in this encounter Administered Medications + +--------+ +--------+------+ + | Medication Order | MAR | Action | Dose | Rate | Site | | | Action | Date | | | | + +--------+ +--------+------+ + | HYDROmorphone (DILAUDID) | Given | 12/14/19 | 0.5 mg | | Glut-Lef | | injection 0.5 mg 0.5 mg, | | 18 1:25 | | | t | | Intramuscular, ONCE, 12/13/17 | | AM PDT | | | | | at 0115, For 1 dose | | | | | | + +--------+ +--------+------+ + +---+---+ | | | +---+---+ + +-------+ +---------+---+ + | methylPREDNISolone sodium | Given | 12/14/19 | 62.5 mg | | Deltoid- | | succinate (solu-MEDROL) 62.5 | | 18 1:22 | | | Right | | mg/mL injection 62.5 mg 62.5 mg, | | AM PDT | | | | | Intramuscular, ONCE, [facility] 12/13/17 | | | | | | | at 0115, For 1 dose, Mix with 2 | | | | | | | mL provided diluent to make 62.5 | | | | | | | mg/mL., | | | | | | + +-------+ +---------+---+ + +---+---+ | | | +---+---+ + +-------+ +------+---+---+ | ondansetron (ZOFRAN ODT) | Given | 12/14/19 | 4 mg | | | | disintegrating tablet 4 mg 4 mg, | | 18 1:22 | | | | | Oral, ONCE, 12/13/17 at 0115, | | AM PDT | | | | | For 1 dose | | | | | | + +-------+ +------+---+---+ +---+---+ | | | +---+---+ documented in this encounter
--- OUTSIDE RECORDS SUMMARY | ~2019-10-30 | XMS | Encounter Summary ---
Demographics + + + | Address | [address] | | | [place] [address] | + + + | Home Phone [...] | | | | | [place] [address] | | + + + + + | Ab Bunch | ECON | Unknown | | + + + + + Care Team Providers + +------+ + | Care Vehicle Window Tinter Name | Role | Phone | + [...] + | 06/08/ | Office | [facility] | Stas Enamorado | Internal derangement | | 2020 | Visit | CARE [address] | [address] | of left shoulder | | | | [place] | [address] | (Primary Dx) | | | | [address] | [place] [address] | | | | | [phone] | [phone] | | | | | | | [...] a rotator cuff tear. Date Last Reviewed: 09/20/201719996707-3254 [employer] [place] [address], [place] [address]. All righ ts reserved. This information is not intended as a substitute for professional medical care. Always follow your healthcare professional's instructions. Pendulum (Flexibility) 1. Lean over next to a table, with your left arm supporting your weight on the table. 2. Relax your right arm and let it hang straight down. 3. Slowly begin to swing your right arm in a small king island. Graduallymake the king island bigge r if you can.Change direction [id number] of motion. 4. Next, swing your right arm backward and forward. Then move it side to side. Change direc tion [id number] of motion. 5. Repeat these movements for about 5 minutes. 6. Do this [id number] a day, or as often as instructed. Date Last Reviewed: 07/31/201519997311-2068 [employer] [address] [place] [address]. All righ ts reserved. This information is [...] Route Intramuscular Administered By Shayna Gibbons RN [facility] [id number] Lot#: [id number] Comments: Exp: 10/2020 Patient instructed to wait 15 minutes after injection for monitoring. Caryl Nassar Patient waited 15 minutes after injection without adverse signs/symptoms. Shayna barbosa RN Daniel Bassett ARNP - 06/08/2019 [...] symptoms comments: Patient was [facility], was treated with steroid injection [...] the left e lbow without pain. 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 No signs of [...] 4:44 PM This note was dictated using [employer] voice recognition software. Occasional wrong- word or [...]
--- OUTSIDE RECORDS SUMMARY | ~2019-10-30 | XMS | Encounter Summary ---
Demographics + + + | Address | [address] | | | [place] [address] | + + + | Home Phone [...] | | | | | [place] [address] | | + + + + + | Ab Bunch | ECON | Unknown | | + + + + + Care Team Providers + +------+ + | Care Composite Bond Worker Name | Role | Phone | + +------+ + | Pj Abdi MD | PCP | | + +------+ + Reason for Visit +---------+ + | Reason | Comments | +---------+ + | No Show | Urology appts x 3 | +---------+ + Encounter Details +--------+ + + + + | Date | Type | Department | Care Team | Description | +--------+ + + + + | 02/07/ | Telephone | [facility] | Pj Abdi, | No Show (Urology | | 2017 | | MEDICINE [place] | [address] | appts x 3) | | | | [address] | [place] | | | | | [place] | [address] | | | | | [address] | | | | | | [phone] | | | +--------+ + + + [...]
--- OUTSIDE RECORDS SUMMARY | ~2019-10-30 | XMS | Encounter Summary ---
Demographics + + + | Address | [address] | | | [place] [address] | + + + | Home Phone [...] | | | | | [place] [address] | | + + + + + | Ab Bunch | ECON | Unknown | | + + + + + Care Team Providers + +------+ + | Care Flatwork Finisher Name | Role | Phone | + +------+ + | John Rhodes | PCP | | + +------+ + Encounter Details +--------+ + + + + | Date | Type | Department | Care Team | Description | +--------+ + + + + | 09/17/ | Abstract | [facility] [place] | RockycarlitogretaFadi freitas | | | 2016 | | PHYSIATRY [address] | [address] | | | | | [address] | [place], [place] | | | | | [place], [place] | [address] | | | | | [address] | | | | | | [phone] | | | +--------+ + + + [...]
--- OUTSIDE RECORDS SUMMARY | ~2019-10-30 | XMS | Encounter Summary ---
Demographics + + + | Address | [address] | | | [place] [address] | + + + | Home Phone | | + + + | Preferred Language | Unknown | + + + | Marital Status | Single | + + + | Orthodoxy Affiliation | 1013 | + + + [...] | | | | | [place] [address] | | + + + + + | Ab Romykia | ECON | Unknown | | + + + + + Care Team Providers + +------+ + | Care Frog Shaker Name | Role | Phone | + +------+ + PCP | Unavailable | + +------+ + Encounter Details +--------+ + + + + | Date | Type | Department | Care Team | Description | +--------+ + + + + | 05/18/ | Hospital | [facility] | Mike Dowd W, | | | 2009 | Encounter | [facility] | MD [address] [facility] | | | | | HEALTH [address] | [place], [place] | | | | | [place], | [address] | | | | | [place] [address] | [phone] | | | | | [phone] | | | +--------+ + + + [...]
--- OUTSIDE RECORDS SUMMARY | ~2019-10-30 | XMS | Encounter Summary ---
Demographics + + + | Address | [address] | | | [place] [address] | + + + | Home Phone [...] | | | | | [place] [address] | | + + + + + | Ab Romykia | ECON | Unknown | | + + + + + Care Team Providers + +------+ + | Care Learning And Development Director Name | Role | Phone | + +------+ + | Charles Allen MD | PCP | | + +------+ + Reason for Visit +--------+ + | Reason | Comments | +--------+ + | Other | | +--------+ + Encounter Details +--------+ + + + + | Date | Type | Department | Care Team | Description | +--------+ + + + + | 07/09/ | Telephone | [facility] | Ed Wood | Other | | 2020 | | SURGERY [address] | MD [address] | | | | | [place], [place] | [facility] | | | | | [address] | [place] [address] | | | | | [phone] | [phone] | | | | | | | [...]
--- OUTSIDE RECORDS SUMMARY | ~2019-10-30 | XMS | Encounter Summary ---
Demographics + + + | Address | [address] | | | [place] [address] | + + + | Home Phone [...] | | | | | [place] [address] | | + + + + + | Ab Romykia | ECON | Unknown | | + + + + + Care Team Providers + +------+ + | Care Quality Technician Name | Role | Phone | [...] + + | 08/06/ | Emergency | [facility] | Billy Munoz, | Back pain, | | 2016 | | MED CTR EMERG[facility]Y | MD [address] | unspecified back | | | | CENTER [address] | [place] | location, | | | | [place] | [address] | unspecified back | | | | [address] | | pain laterality, | | | | [phone] | | unspecified | | | | [...] through Care Everywhere.BACK AND NECK GENERAL LILIAM ([place])documented in this encounter Medications at Time of [...]
--- OUTSIDE RECORDS SUMMARY | ~2019-10-30 | XMS | Encounter Summary ---
Demographics + + + | Address | [address] | | | [place] [address] | + + + | Home Phone | | + + + | Preferred Language | Unknown | + + + | Marital Status | Single | + + + | Jainism Affiliation | 1013 | + + + [...] | | | | | [place] [address] | | + + + + + | Ab Romykia | ECON | Unknown | | + + + + + Care Team Providers + +------+ + | Care Commercial Real Estate Manager Name | Role | Phone | [...] + + | 08/03/ | Emergency | [facility] | Eric Lozano, | Acute exacerbation | | 2017 - | | MED CTR EMERGENCY | MD [address] | of chronic low back | | | | CENTER [address] | [place], [place] | pain (Primary Dx) | | 08/04/ | | [place], [place] | [address] | | | 2016 | | [address] | | | | | | [phone] | | | +--------+ + + + [...] Care Everywhere.BACK PAIN (ACUT E OR CHRONIC) (DANISH)documented in this encounter Medications at Time of [...] [address] | [place] | [phone] | | [facility] | | [address] | | | - LABORATORY | | [...] + | [address] | [address] | [place] | [phone] | | [facility] | | [address] | | | - LABORATORY | | [...]
--- OUTSIDE RECORDS SUMMARY | ~2019-10-30 | XMS | Encounter Summary ---
Demographics + + + | Address | [address] | | | [place] [address] | + + + | Home Phone [...] | | | | | [place] [address] | | + + + + + | Ab Bunch | ECON | Unknown | | + + + + + Care Team Providers + +------+ + | Care Impression Printer Name | Role | Phone | + +------+ + | Mike Fernández MD | PCP | | + +------+ + Encounter Details +--------+ + + + + | Date | Type | Department | Care Team | Description | +--------+ + + + + | 10/30/ | Hospital | [facility] | Suhail Constantino | | | 2012 | Encounter | MED CTR EMER[facility]ENCY | MD Brian [address] | | | | | [place] [address] | [address] [place] | | | | | [place], [place] | [place] [address] | | | | | [address] | [phone] | | | | | [phone] | | | +--------+ + + + [...]
--- OUTSIDE RECORDS SUMMARY | ~2019-10-30 | XMS | Encounter Summary ---
Demographics + + + | Address | [address] | | | [place] [address] | + + + | Home Phone [...] | | | | | [place] [address] | | + + + + + | Absweta Bunch | ECON | Unknown | | + + + + + Care Team Providers + +------+ + | Care Bilingual Teacher Name | Role | Phone | [...] + + | 04/09/ | Telephone | [facility] | Pj Abdi, | Numbness (left leg) | | 2019 | | MEDICINE [place] | [address] | | | | | [address] | [place] | | | | | [place] | [address] | | | | | [address] | | | | | | [phone] | | | +--------+ + + + [...]
--- OUTSIDE RECORDS SUMMARY | ~2019-10-30 | XMS | Encounter Summary ---
Demographics + + + | Address | [address] | | | [place] [address] | + + + | Home Phone [...] | | | | | [place] [address] | | + + + + + | Absweta Bunch | ECON | Unknown | | + + + + + Care Team Providers + +------+ + | Care Independent Marketing Consultant Name | Role | Phone | [...] + + | 11/11/ | Telephone | [facility] | Alessandra Mercedes | Chronic Pain | | 2017 | | [facility] | Zenon, PharmD [address] | | | | | [address] | [address] [facility] | | | | | [place] | [place] [address] | | | | | [address] | [phone] | | | | | [phone] | | | +--------+ + + + [...]
--- OUTSIDE RECORDS SUMMARY | ~2019-10-30 | XMS | Encounter Summary ---
Demographics + + + | Address | [address] | | | [place] [address] | + + + | Home Phone [...] | | | | | [place] [address] | | + + + + + | Ab Romykia | ECON | Unknown | | + + + + + Care Team Providers + +------+ + | Care Building Maintenance Technician Name | Role | Phone | [...] + + | 12/14/ | Telephone | [facility] | Pj Abdi, | ER Follow-up | | 2018 | | MEDICINE [place] | [address] | | | | | [address] | [place] | | | | | [place] | [address] | | | | | [address] | | | | | | [phone] | | | +--------+ + + + [...]
--- OUTSIDE RECORDS SUMMARY | ~2019-10-30 | XMS | Encounter Summary ---
Demographics + + + | Address | [address] | | | [place] [address] | + + + | Home Phone [...] | | | | | [place] [address] | | + + + + + | Ab Romykia | ECON | Unknown | | + + + + + Care Team Providers + +------+ + | Care Nuisance Wildlife Trapper Name | Role | Phone | + [...] + + | 01/15/ | Emergency | [facility] | Jimy Davis MD | Vaginal bleeding | | 2016 | | MED CTR EMERGENCY | [address] | (Primary Dx); | | | | CENTER [address] | [place], [place] | Abdominal pain, | | | | [place], [place] | [address] | unspecified | | | | [address] | | abdominal location | | | | [phone] | | | +--------+ + + + [...]
--- OUTSIDE RECORDS SUMMARY | ~2019-10-30 | XMS | Encounter Summary ---
Demographics + + + | Address | [address] | | | [place] [address] | + + + | Home Phone [...] | | | | | [place] [address] | | + + + + + | Ab Romykia | ECON | Unknown | | + + + + + Care Team Providers + +------+ + | Care Associate Software Engineer Name | Role | Phone | [...] + + | 12/01/ | Telephone | [facility] | Pj Abdi, | Results | | 2017 | | MEDIC[facility] [place] | [address] | | | | | [address] | [place] | | | | | [place] | [address] | | | | | [address] | | | | | | [phone] | | | +--------+ + + + [...]
--- OUTSIDE RECORDS SUMMARY | ~2019-10-30 | XMS | Encounter Summary ---
Demographics + + + | Address | [address] | | | [place] [address] | + + + | Home Phone [...] | | | | | [place] [address] | | + + + + + | Ab Bunch | ECON | Unknown | | + + + + + Care Team Providers + +------+ + | Care Forestry Supervisor Name | Role | Phone | + +------+ + | Mike Fernández MD | PCP | | + +------+ + Encounter Details +--------+ + + + + | Date | Type | Department | Care Team | Description | +--------+ + + + + | 12/11/ | Hospital | [facility] | Billy Munoz, | | | 2012 | Encounter | [facility] | [place] [address] | | | | | [place] [address] | [place] | | | | | [place], [place] | [address] | | | | | [address] | | | | | | [phone] | | | +--------+ + + + [...]
--- OUTSIDE RECORDS SUMMARY | ~2019-10-30 | XMS | Encounter Summary ---
Demographics + + + | Address | [address] | | | [place] [address] | + + + | Home Phone [...] + + | Author | [facility] | | | and Johnana | + + + | Organization | [facility] [...] | | | | | [place] [address] | | + + + + + | Ab Romykia | ECON | Unknown | | + + + + + Care Team Providers + +------+ + | Care Diversified Crops Farmer Name | Role | Phone | + +------+ + | Pj Abdi MD | PCP | | + +------+ + Reason for Visit + + + | Reason | Comments | + + + | Encopresis | | + + + Encounter Details +--------+ + + + + | Date | Type | Department | Care Team | Description | +--------+ + + + + | 05/25/ | Telephone | [facility] | Pj Abdi, | Encopresis | | 2018 | | MEDICINE SURRY | [address] | | | | | [address] | [place] | | | | | [place] | [address] | | | | | [address] | | | | | | [phone] | | | +--------+ + + + [...]
--- OUTSIDE RECORDS SUMMARY | ~2019-10-30 | XMS | Encounter Summary ---
Demographics + + + | Address | [address] | | | [place] [address] | + + + | Home Phone [...] | | | | | [place] [address] | | + + + + + | Ab Bunch | ECON | Unknown | | + + + + + Care Team Providers + +------+ + | Care Defense Attorney Name | Role | Phone | [...] | | | | quadrant | | [place], | | | | | pain | | [place] [address] | | | | | [R10.31] | | Phone: | | | | | Procedures | | [phone] | | | | | [place] | | Fax: | | | | | LAP,DIAGNOST | | [phone] | | | | | IC ABDOMEN | | | +--------+--------+ + + + + Encounter Details +--------+ + + + + | Date | Type | Department | Care Team | Description | +--------+ + + + + | 06/16/ | Hospital | [facility] | Nikko Sánchez | | | 2016 | Encounter | MED CTR OR INTRA OP | DO Fernando [address] | | | | [address] | [address] [place] | | | | | [place], [place] | [place] [address] | | | | | [address] | [phone] | | | | | [phone] | | | +--------+ + + + [...] | 1.010, 1.015, | | | | [place], | | 1.020, 1.025 | | | | POC | | | | | + + + + + + | Internal QC | Acceptable | | | | + + + + + + | Lot Number | [id number] | | | | + + + [...] | | + +--------+ +--------+------+------+ | fentaNYL injection 25-50 mcg | Given | 06/16/19 | 50 mcg | | | | 25-50 mcg, Intravenous, EVERY | | 16 9:27 | | | [...] +--------+ +--------+------+------+ +-------+ +--------+---+---+ | Given | 06/16/19 | [...] | | | | | | use Baldwin 10/325 if ordered. If | | | [...]
--- OUTSIDE RECORDS SUMMARY | ~2019-10-30 | XMS | Clinical Summary ---
Demographics + + + | Address | [address] | | | [place] [address] | + + + | Home Phone [...] | | | | | [place] [address] | | + + + + + | Ab Bunch | ECON | Unknown | | + + + + + Care Team Providers + +------+ + | Care Traffic Engineering Technician Name | Role | Phone | [...] [employer] [place] [employer] | TRAVEL | [id number] | | | | Indemn | | [place] | ERS | | 020-Pr | | | ity | | | CHARTE | | esent | | | | | | R OAK | | | | | | | | WC | | | | | | + +--------+ +--------+-------+---------+--------+ | [employer]ICA[employer] | LEE | [id number] | | | | Medica | | [...] | 1994 | [phone] | [place] [address] | | | abdoulaye | | | 5 (Home) | | + +--------+ +--------+ + + | Donna Camarena | Third | Self | [birth year] | | [address] | | [place] | Democrat | | 1995 | [phone] | [place], [place] | | | [place] | | | 6 ([place]) | [address] | | | ity | | | | | + +--------+ +--------+ + + | Donna Camarena | Worker | Self | [birth year] | | [address] | | [place] | s Comp | | 1995 | [phone] | [place] [address] | | | | | | 9 (Home) | | + +--------+ +--------+ + + | Donna Camarena | Worker | Self | [birth year] | | [address] | | [place] | s Comp | | 1995 | [phone] | [place] | | | | | | 0 ([place]) | [address] | + +--------+ +--------+ + + | ChingestrellaDonna | Worker | Self | 07/13/ | | [address] | | [place] | s Comp | | 1995 | | [place] | | | | | | 0 ([place]) | [address] | + +--------+ +--------+ + + | Clarissa Camarenarina | Worker | Self | [birth year] | | [address] | | [place] | s Comp | | 1995 | | [place] | | | | | | 0 ([place]) | [address] | + +--------+ +--------+ + + Advance Directives + + + + + | Type | Date Recorded | Patient | Explanation | | | | 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
--- OUTSIDE RECORDS SUMMARY | ~2019-10-30 | XMS | Encounter Summary ---
Demographics + + + | Address | [address] | | | [place] [address] | + + + | Home Phone [...] | | | | | [place] [address] | | + + + + + | Ab Romykia | ECON | Unknown | | + + + + + Care Team Providers + +------+ + | Care Drying Machine Tender Name | Role | Phone | [...] [place] | | | | | | [address] | | | | | | [phone] | | | +--------+ + + + [...]
--- OUTSIDE RECORDS SUMMARY | ~2019-10-30 | XMS | Encounter Summary ---
Demographics + + + | Address | [address] | | | [place] [address] | + + + | Home Phone [...] | | | | | [place] [address] | | + + + + + | Ab Romykia | ECON | Unknown | | + + + + + Care Team Providers + +------+ + | Care Instrument Checker Name | Role | Phone | + [...] | | injury | [place], [place] | [address] Phone: | | | | | Procedures | [address] | [phone] | | | | | L&I | Phone: | Fax: | | | | | | [phone] | [phone] | | | | | | Fax: | | | | | | | [phone] | | +--------+ + + + + [...] | [address] | | | | | [address] | | | | | | [phone] | | | +--------+---------+ + + + [...] t wrist with noted weakness in the indian trader. These impairments are causing functional limitation s with her ability to indian trader, twist or hold, which is restricting this [...] 3 Status: 0 Treatment Plan/Interventions PT EvaluationPT Re-[id number] - Therapeutic Fvivyiqq18605 - Neuromuscular Reeducation9 7530 - Therapeutic Ufommtmkta76581 - Manual Bdlcreb46211 - Self Care/Home Kdddujxkwn41351 - Hfsofcmlms15810/G0283 - Electrical Stimulation, Juwuimcgri68945 - Vasopneumatic Lglatjx84733 - Paraffin Bath Electronically signed by: Kei Salcedo PT, 07/19/2019 10:00 AM Patient Name: Donna Camarena/: 1995/ [place], PT - 07/17/2019 4:30 PM PSTFormatting of this note might be different from the orig inal. [facility] [address] [place] [address] Physical Therapy Initial Shoulder Assessment Date: 07/17/2019 [...] wrist with noted wea kness in the indian trader. These impairments are causing functional limitations with her ability to indian trader, twist or hold, which is restricting this patient's ability to participate in her [employer] work related tasks. She did note today [...] level: Not on file Occupational History Occupation: REGISTERED N[employer]SE [employer] Employer: [employer] Comment: UNEMPLOYED Tobacco Use Smoking status: [...] Procedure Laterality Date APPENDECTOMY 2011 Dr. Fernández; [facility] LAPAROSCOPY N/A 06/16/2015 Procedure: Diagnostic Laparoscopy laparoscopic ovarian drilling,right; Surgeon: Nikko Sánchez DO; Location: [facility] MAIN OR OVARIAN CYST REMOVAL 2011 Dr. Fernández; [facility] OVARIAN CYST REMOVAL 2014 Dr. 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 These impairments are causing functional limitations with her ability to indian trader, twist or hold, which is restricting this patient's ability to participate in her darrian l work related tasks. She did note today during her treatment she had been dismissed from [employer] and is no longer employed there. Signs [...] Certification To: 08/28/2019 Treatment Plan/Interventions PT EvaluationPT Re-Uqxbuobtuy99065 - Therapeutic Wkmpfyks01677 - Neuromuscular Reeducation9 7530 - Therapeutic Kattsasgco32879 - Manual Emcuihm23026 - Self Care/Home Jpqlfeahot98534 - Oeempmdskc82610/G0283 - Electrical Stimulation, Imokrkkuiq88823 - Vasopneumatic Soiecag40388 - Paraffin Bath Patient and/or family has [...]
--- OUTSIDE RECORDS SUMMARY | ~2019-10-30 | XMS | Encounter Summary ---
Demographics + + + | Address | [address] | | | [place] [address] | + + + | Home Phone | | + + + | Preferred Language | Unknown | + + + | Marital Status | Single | + + + | Gnosticist Affiliation | 1013 | + + + | Race | Unknown | + + + | Ethnic Group | Unknown | + + + Author + + + | Author | [facility] | | | and Johnana | + + + | Organization | [facility] | | [...] | | | | | [place] [address] | | + + + + + | Ab Romykia | ECON | Unknown | | + + + + + Care Team Providers + +------+ + | Care Cvt Tech Name | Role | Phone | [...] + + | 06/28/ | Office | [facility] | Efrain Alegria MD | Emesis (Primary Dx); | | 2012 | Visit | [facility] [address] | [address] | Gastroenteritis, | | | | [facility] | [place], [place] | acute | | | | [place], [place] | [address] | | | | | [address] | | | | | | [phone] | | | +--------+---------+ + + + [...] stop this may not be recommended. Certain kqcz-fct-jymluas medications can help soothe stomach upset. Ask [...] dark urine. Severe weakness, dizziness or lightheadedness [address]57[address] [place] [address]. All rights reserve d. This information is [...] not better with fever medication [place] [address] [facility], [address] [place] [address], [place] [address]. All rights reserve d. This information is [...] | 1.030 | | | | | [place], | | | | | | UA, [...]
--- OUTSIDE RECORDS SUMMARY | ~2019-10-30 | XMS | Encounter Summary ---
Demographics + + + | Address | [address] | | | [place] [address] | + + + | Home Phone [...] | | | | | [place] [address] | | + + + + + | Ab Romykia | ECON | Unknown | | + + + + + Care Team Providers + +------+ + | Care Digital Developer Name | Role | Phone | + +------+ + | Pj Abdi MD | PCP | | + +------+ + Reason for Visit +--------+ + | Reason | Comments | +--------+ + | Rash | Room 5 Ex boyfriend recently diagnosed with MRSA. She has had | | | sexual relations with him recently and has many lesions on legs | | | from "picking". and had nicked her [place] area while shaving. | +--------+ + Encounter Details +--------+---------+ + + + | Date | Type | Department | Care Team | Description | +--------+---------+ + + + | 05/08/ | Office | [facility] | Stas Enamorado | Viral syndrome | | 2018 | Visit | CARE [address] | [address] | (Primary Dx); | | | | [place] | [address] [place] | Folliculitis | | | | [address] | [place] [address] | | | | | [phone] | [phone] | | | | | | | [...] + + + | Blood Pressure | 119/65 | 05/08/2018 6:41 PM | | | | | PST | | + + + + + | Pulse | 84 | 05/08/2018 6:41 PM | | | | | PST | | + + + + + | Temperature | 36.9 C (98.4 F) | 05/08/2018 6:41 PM | | | | | PST | | + + + + + | Respiratory Rate | 16 | 05/08/2018 6:41 PM | | | | | PST | | + + + + + | Oxygen Saturation | 96% | 05/08/2018 6:41 PM | | | | | PST | | + + + + + | Inhaled Oxygen | - | - | | | Concentration | | | | + + + + + | Weight | 57.6 kg (126 lb 15.8 | 05/08/2018 6:41 PM | | | | oz) | PST | | + + + + + | Height | 162.6 cm (5' 4") | 05/08/2018 6:41 PM | | | | | PST | | + + + + + | Body Mass Index | 21.8 | 05/08/2018 6:41 PM | | | | | PST | | + + + + + documented in this encounter Patient Instructions Patient Instructions Stas Enamorado ARNP - 05/08/2018 6:30 PM PST Take the medication as directed The inhaler that I was going to use, you are allergic to Use steam to help with breathing Follow up with your doctor as needed No picking of the sores Return if your symptoms change for the worse. Folliculitis Folliculitis is an inflammation of a hair follicle. A hair follicle is the little pocket wh ere a hair grows out of the skin. Bacteria normally live on the skin. But sometimes bacteria can get trapped in a follicle and cause infection. This causes a bumpy rash. The area over the follicles is red and raised. It may itch or be painful. The bumps may have fluid (pus) i nside. The pus may leak and then form crusts. Sores can spread to other areas of the body. O nce it goes away, folliculitis can come back at any time. Severe cases may cause permanent h air loss and scarring. Folliculitis can happen anywhere on the body where hair grows. It can be caused by rubbing from tight clothing. Ingrown hairs can cause it. Soaking in a hot tub or swimming pool that has bacteria in the water can cause it. It may also occur if a hair follicle is blocked by a bandage. Sores often go away in a few days with no treatment. In some cases, medicine may be given. A small piece of skin or pus may be taken to find the type of bacteria causing the infection . Home care The healthcare provider may prescribe an antibiotic cream or ointment. Oral antibiotics m ay also be prescribed. Or you may be told to use an zjos-koo-lxlgilz antibiotic cream. Follo w all instructions when using any of these medicines. General care Apply warm, moist compresses to the sores for 20 minutes up to 3 times a day. You can ma ke a compress by soaking a cloth in warm water. Squeeze out excess water. Don t cut, poke, or squeeze the sores. This can be painful and spread infection. Don t scratch the affected area. Scratching can delay healing. Don t shave the areas affected by folliculitis. If the sores leak fluid, cover the area with a nonstick gauze bandage. Use as little tap e as possible. Carefully discard all soiled bandages. Dress in loose cotton clothing. Change sheets and blankets if they are soiled by pus. Wash all clothes, towels, sheets, and cloth diapers in soap and hot water. Do not share clothes, towels, or sheets with other family members. Do not soak the sores in bath water. This can spread infection. Instead, keep the area c lean by gently washing sores with soap and warm water. Wash your hands or use antibacterial gels often to prevent spreading the bacteria. Follow-up care Follow up with your healthcare provider, or as advised. When to seek medical advice Call your healthcare provider right awayif any of these occur: Fever of 100.4F (38C) or higher Spreading of the rash Rash does not get better with treatment Redness or swelling that gets worse Rash becomes more painful Foul-smelling fluid leaking from the skin Rash improves, but then comes back Date Last Reviewed: 03/23/201619992123-4044 [employer]. [address] [place] [address], [place] [address]. All righ ts reserved. This information is not intended as a substitute for professional medical care. Always follow your healthcare professional's instructions. documented in this encounter Progress Notes Stas Enamorado, CIGARETTE MAKING MACHINE CATCHER - 05/08/2018 6:30 PM PSTFormatting of this note might be di fferent from the original. Subjective: Donna is a 22 y.o. female who comes in complaining of Rash (Room 5 Ex boyfriend recently diagnosed with MRSA. She has had sexual relations with him recently and has many lesions on legs from "picking". and had nicked her [place] area while shaving.) . Patient presents with two complaints Rash This is a new problem. The current episode started in the past 7 days (reports recent intim ate contact with ex-boyfriend who has MRSA, patient is concerned that she now has it). The p roblem is unchanged. The affected locations include the right upper leg, right lower leg, le ft upper leg, left lower leg and back. Rash characteristics: small individual reddened areas . No swelling, pustules or increased warmth noted. Associated symptoms include congestion, coughing (thick sputum), rhinorrhea and a sore throat. Pertinent negatives include no fever, joint pain or vomiting. (Reports past history of drug use, stated she used to use cocaine a nd fentyal pill, would smoke these with the last use being 11 days ago) URI This is a new problem. The current episode started in the past 7 days. The problem has been unchanged. There has been no fever. Associated symptoms include congestion, coughing (thick sputum), nausea, rhinorrhea and a sore throat. Pertinent negatives include no chest pain, e ar pain, headaches, joint pain, joint swelling or vomiting. She has tried nothing for the sy mptoms. Patient's medications, allergies, past medical, surgical, social and family histories were reviewed and updated as appropriate. Review of Systems Constitutional: Negative for chills and fever. HENT: Positive for congestion, rhinorrhea and sore throat. Negative for ear pain. Respiratory: Positive for cough (thick sputum) and sputum production. Cardiovascular: Negative for chest pain. Gastrointestinal: Positive for nausea. Negative for vomiting. Musculoskeletal: Negative for joint pain. Neurological: Negative for headaches. All other systems reviewed and are negative. Objective: BP 119/65 | Pulse 84 | Temp 36.9 C (98.4 F) (Temporal) | Resp 16 | Ht 1.626 m (5' 4 ") | Wt 57.6 kg (126 lb 15.8 oz) | LMP 05/01/2018 (Approximate) | SpO2 96% | BMI 21.80 k g/m Physical Exam Constitutional: She is oriented to person, place, and time. She appears well-developed and well-nourished. No distress. HENT: Head: Normocephalic. Right Ear: Hearing, tympanic membrane, external ear and ear canal normal. Left Ear: Hearing, tympanic membrane, external ear and ear canal normal. Nose: Nose normal. Mouth/Throat: Uvula is midline and mucous membranes are normal. Posterior oropharyngeal donna thema present. Tonsils are 1+ on the right. Tonsils are 1+ on the left. No tonsillar exudate . Cardiovascular: Normal rate. Pulmonary/Chest: Effort normal and breath sounds normal. No respiratory distress. She has n o wheezes. She has no rales. She exhibits no tenderness. Musculoskeletal: Normal range of motion. Neurological: She is alert and oriented to person, place, and time. Skin: Skin is warm. Capillary refill takes less than 2 seconds. She is not diaphoretic. Nursing note and vitals reviewed. No results found for this or any previous visit (from the past 24 hour(s)). Assessment and Plans: 1. Viral syndrome 2. Folliculitis doxycycline (VIBRAMYCIN) 100 mg capsule Medication as directed. Discussed with the patient the risk/benefits regarding the medicat ion use. Symptomatic treatment for URI. Steam for nasal congestion, cough drops for sore throat as needed Follow up with PCP as needed. Printed material regarding diagnosis provided to patient. Patient agrees with this shared medical decision making. Return if symptoms worsen or fail to improve. Electronically signed by ANGEL Padron at DATE/TIME: 05/08/2018 20:22 This note was dictated using [employer] voice recognition software. Occasional wrong- word or s ound-alike substitutions may have occurred due to the inherent limitations of voice recognit ion software. Please read the chart carefully and recognize, using context, where these subs titutions have occurred. documented in this encounter Plan of Treatment Not on filedocumented as of this encounter Visit Diagnoses + + | Diagnosis | + + | Viral syndrome - Primary Unspecified viral infection, in conditions classified | | elsewhere and of unspecified site | + + | Folliculitis Other specified disease of hair and hair follicles | + + documented in this encounter
--- OUTSIDE RECORDS SUMMARY | ~2019-10-30 | XMS | Encounter Summary ---
Demographics + + + | Address | [address] | | | [place] [address] | + + + | Home Phone [...] | | | | | [place] [address] | | + + + + + | Ab Bunch | ECON | Unknown | | + + + + + Care Team Providers + +------+ + | Care Supervisor Meter Shop Name | Role | Phone | + +------+ + | Mike Fernández MD | PCP | | + +------+ + Encounter Details +--------+ + + + + | Date | Type | Department | Care Team | Description | +--------+ + + + + | 12/27/ | Hospital | [facility] | Precious Parekh | | | 2012 | Encounter | MED CTR EM[facility]Y | MD Rebecca [address] | | | | | CENTER [address] | [place], | | | | | [place], [place] | [place] [address] | | | | | [address] | [phone] | | | | | [phone] | | | | | | | Rajiv Vieyra, | | | | | | [address] | | | | | | [facility] | | | | | | [place] [address] | | | | | | [phone] | | | | | | | [...] + | CBC WITH | Routin | 12/27/2012 | | Results for this | | DIFFERENTIAL | e | 9:17 PM | | procedure are in the | | | | PDT | | results section. | + +--------+ + + + | C-REACTIVE PROTEIN | Routin | 12/27/2012 | | Results for this | | | e | 9:17 PM | | procedure are in the | | | | PDT | | results section. | + +--------+ + + + | COMPREHENSIVE | Routin | 12/27/2012 | | Results for this | | METABOLIC PANEL | e | 9:17 PM | | procedure are in the | | | | PDT | | results section. | + +--------+ + + + documented in this encounter Results CBC with Differential (12/27/2012 9:17 PM PDT) + +-------+ + + + | Component | Value | Ref Range | Performed | Pathologist | | | | | At | Signature | + +-------+ + + + | MANUAL | NO | | [facility] | | [facility] | | [facility] | | | [facility] ? | | | [facility] | | | | | | CENTER - | | | | | | LABORATORY | | + +-------+ + + + | WBC | 7.6 | 4.0 - 11.0 K/uL | [facility] | | | | | | [facility] | | | | | | MEDICAL | | | | | | CENTER - | | | | | | LABORATORY | | + +-------+ + + + | RBC | 4.17 | 3.70 - 5.20 | [facility] | [...] +-------+ + + + | Hematocrit | 39.4 | 34.0 - 47.0 % | [facility] | | | | | | [facility] | | | | | | MEDICAL | | | | | | CENTER - | | | | | | LABORATORY | | + +-------+ + + + | MCV | 94.4 | 83.0 - 101.0 fL | [facility] | | | | | | [facility] | | | | | | MEDICAL | | | | | | CENTER - | | | | | | LABORATORY | | + +-------+ + + + | MCH | 31.0 | 28.0 - 35.0 pg | [facility] | | | | | | [facility] | | | | | | MEDICAL | | | | | | CENTER - | | | | | | LABORATORY | | + +-------+ + + + | MCHC | 32.9 | 32.0 - 36.0 | [facility] | | | | | g/dL | [facility] | | | | | | MEDICAL | | | | | | CENTER - | | | | | | LABORATORY | | + +-------+ + + + | RDW-CV | 12.7 | <15.0 % | [facility] | | | | | | [facility] | | | | | | MEDICAL | | | | | | CENTER - | | | | | | LABORATORY | | + +-------+ + + + | Platelet | 297 | 140 - 440 K/uL | [facility] | | | Count | | | [facility] | | | | | | MEDICAL | | | | | | CENTER - | | | | | | LABORATORY | | + +-------+ + + + | % | 63.7 | 45 - 75 % | [facility] | | | Neutrophils | | | [facility] | | | | | | MEDICAL | | | | | | CENTER - | | | | | | LABORATORY | | + +-------+ + + + | % | 28.5 | 20 - 45 % | [facility] | | | Lymphocytes | | | [facility] | | | | | | MEDICAL | | | | | | CENTER - | | | | | | LABORATORY | | + +-------+ + + + | % Monocytes | 4.6 | 4 - 12 % | [facility] | | | | | | [facility] | | | | | | MEDICAL | | | | | | CENTER - | | | | | | LABORATORY | | + +-------+ + + + | % | 2.4 | 0 - 5 % | [facility] | | | Eosinophils | | | [facility] | | | | | | MEDICAL | | | | | | CENTER - | | | | | | LABORATORY | | + +-------+ + + + | % Basophils | 0.8 | 0 - 1 % | [facility] | | | | | | [facility] | | | | | | MEDICAL | | | | | | CENTER - | | | | | | LABORATORY | | + +-------+ + + + | Absolute | 4.8 | 1.5 - 6.6 K/uL | [facility] | | | Neutrophils | | | [facility] | | | | | | MEDICAL | | | | | | CENTER - | | | | | | LABORATORY | | + +-------+ + + + | Absolute | 2.2 | 0.6 - 3.2 K/uL | [facility] | | | Lymphocytes | | | [facility] | | | | | | MEDICAL | | | | | | CENTER - | | | | | | LABORATORY | | + +-------+ + + + | Absolute | 0.3 | 0.0 - 1.0 K/uL | [facility] [...] +-------+ + + + | Absolute | 0.1 | 0.0 - 0.1 K/uL | [facility] [...] [address] | [place] | [phone] | | [facility] | | [address] | | | - LABORATORY | | | | + + + + + | [facility] | [address] | [place] | | | [facility] | | [address], [facility] | | | - LABORATORY | | | | + + + + + Comprehensive Metabolic Panel (12/27/2012 9:17 PM PDT) + + + + + + | Component | Value | Ref Range | Performed | Pathologist | | | | | At | Signature | + + + + + + | Glucose | 93 | 70 - 109 mg/dL | [facility] | | | | [...] + + + + | Alkaline | 86 | 40 - 110 IU/L | [facility] | | | Phosphatase | | | [facility] | | | | | | MEDICAL | | | | | | CENTER - | | | | | | LABORATORY | | + + + + + + | AST | 22 | 10 - 42 IU/L | [facility] | | | | | | [facility] | | | | | | MEDICAL | | | | | | CENTER - | | | | | | LABORATORY | | + + + + + + | ALT | 17 | 6 - 45 IU/L | [facility] | | | | | | [facility] | | | | | | MEDICAL | | | | | | CENTER - | | | | | | LABORATORY | | + + + + + + | Bilirubin | 0.6 | 0.2 - 1.0 mg/dL | [facility] | | | Total | | | [facility] | | | | | | MEDICAL | | | | | | CENTER - | | | | | | LABORATORY | | + + + + + + | Total | 6.9 | 6.0 - 7.8 gm/dL | [facility] | | | Protein | | | [facility] | | | | | | MEDICAL | | | | | | CENTER - | | | | | | LABORATORY | | + + + + + + | Albumin | 4.2 | 3.2 - 5.0 gm/dL | [facility] | | | | | | [facility] | | | | | | MEDICAL | | | | | | CENTER - | | | | | | LABORATORY | | + + + + + + | BUN | 3 (L) | 7 - 18 mg/dL | [facility] | | | | | | [facility] | | | | | | MEDICAL | | | | | | CENTER - | | | | | | LABORATORY | | + + + + + + | Creatinine | 0.63 | 0.60 - 1.30 | [facility] | | | | | mg/dL | [facility] | | | | | | MEDICAL | | | | | | CENTER - | | | | | | LABORATORY | | + + + + + + | Estimated | >60Comment: For | >60 mL/min/A | [facility] | | | GFR | -Americans, | [...] + + + | BUN/Creatin | 4.8 (L) | 12 - 20 | [facility] | | | ine Ratio | | | [facility] | | | | | | MEDICAL | | | | | | CENTER - | | | | | | LABORATORY | | + + + + + + | Na | 141 | 136 - 149 mEq/L | [facility] | | | | | | [facility] | | | | | | MEDICAL | | | | | | CENTER - | | | | | | LABORATORY | | + + + + + + | K | 4.0 | 3.5 - 5.1 mEq/l | [facility] | | | | | | [facility] | | | | | | MEDICAL | | | | | | CENTER - | | | | | | LABORATORY | | + + + + + + | Cl | 107 | 98 - 109 mEq/l | [facility] | | | | | | [facility] | | | | | | MEDICAL | | | | | | CENTER - | | | | | | LABORATORY | | + + + + + + | CO2 | 29 | 24 - 31 mEq/L | [facility] | | | | | | [facility] | | | | | | MEDICAL | | | | | | CENTER - | | | | | | LABORATORY | | + + + + + + | Anion Gap | 9.0 | 6.0 - 17.0 | [facility] | [...] + | [facility] | [address] | [place] | [phone] | | [facility] | | [address] | | | - LABORATORY | | | | + + + + + | [facility] | [address] | [place], [place] | | | [facility] | | [address] | | | - LABORATORY | | | | + + + + + C-Reactive Protein (12/27/2012 9:17 PM PDT) + + + + + + | Component | Value | Ref Range | Performed | Pathologist | | | | | At | Signature | + + + + + + | CRP | 0.2Comment: Levels >8.0 | <8.0 mg/L | [facility] | | | | mg/L indicate possible | | [facility] | | | | infection, trauma, | | MEDICAL | | | | cardiac infarct or | | CENTER - | | | | neoplastic | | LABORATORY | | | | proliferation. | | | | + + + + + + + + | Specimen | + + | | + + + + + + + | Performing | Address | City/State/Zipcode | Phone Number | | Organization | | | | + + + + + | [facility] | [address] | [place] | [phone] | | [facility] | | [address] | | | - LABORATORY | | | | + + + + + | [facility] | [address] | [place] | | | [facility] | | [address] | | | - LABORATORY | | | | + + + + + documented in this encounter Visit Diagnoses Not on filedocumented in this encounter"
--- OUTSIDE RECORDS SUMMARY | ~2019-10-30 | XMS | Encounter Summary ---
Demographics + + + | Address | [address] | | | [place] [address] | + + + | Home Phone [...] | | | | | [place] [address] | | + + + + + | Ab Romykia | ECON | Unknown | | + + + + + Care Team Providers + +------+ + | Care Plumbing Installer Name | Role | Phone | + [...] + | 11/14/ | Refill | [facility] | Pj Abdi, | Medication Refill | | 2018 | | [facility] [place] | [address] | | | | | [address] | [place] | | | | | [place] | [address] | | | | | [address] | | | | | | [phone] | | | +--------+--------+ + + + [...]
--- OUTSIDE RECORDS SUMMARY | ~2019-10-30 | XMS | Encounter Summary ---
Demographics + + + | Address | [address] | | | [place] [address] | + + + | Home Phone [...] | | | | | [place] [address] | | + + + + + | Ab Romykia | ECON | Unknown | | + + + + + Care Team Providers + +------+ + | Care Cancer Genetics Assistant Name | Role | Phone | + +------+ + | Pj Abdi MD | PCP | | + +------+ + Reason for Visit + + + | Reason | Comments | + + + | Appointment | | + + + Encounter Details +--------+ + + + + | Date | Type | Department | Care Team | Description | +--------+ + + + + | 05/31/ | Telephone | [facility] | Pj Abdi, | Appointment | | 2018 | | MEDICINE [place] | [address] | | | | | [address] | [place] | | | | | [place] | [address] | | | | | [address] | | | | | | [phone] | | | +--------+ + + + [...]
--- OUTSIDE RECORDS SUMMARY | ~2019-10-30 | XMS | Encounter Summary ---
Demographics + + + | Address | [address] | | | [place] [address] | + + + | Home Phone [...] | | | | | [place] [address] | | + + + + + | Ab Romykia | ECON | Unknown | | + + + + + Care Team Providers + +------+ + | Care Academic Specialist Name | Role | Phone | + +------+ + | No Physician | PCP | Unavailable | + +------+ + Reason for Visit + + + | Reason | Comments | + + + | Back Injury | upper | + + + Encounter Details +--------+ + + + + | Date | Type | Department | Care Team | Description | +--------+ + + + + | 03/14/ | Emergency | [facility] | Rajiv Vieyra, | Thoracic myofascial | | 2014 - | | MED CTR EMERGENCY | MD [address] | zee varner | | | | CENTER [address] | [facility] [place] | encounter (Primary | | 03/15/ | | [place] | [place] [address] | Dx) | | 2014 | | [address] | [phone] | | | | | [phone] | | | +--------+ + + + [...] + + + | Blood Pressure | 124/75 | 03/15/2015 12:27 AM | | | | | PDT | | + + + + + | Pulse | 79 | 03/15/2015 12:27 AM | | | | | PDT | | + + + + + | Temperature | 37.2 C (99 F) | 03/15/2015 12:01 AM | | | | | PDT | | + + + + + | Respiratory Rate | 16 | 03/15/2015 12:01 AM | | | | | PDT | | + + + + + | Oxygen Saturation | 100% | 03/15/2015 12:27 AM | | | | | PDT | | + + + + + | Inhaled Oxygen | - | - | | | Concentration | | | | + + + + + | Weight | 54.4 kg (120 lb) | 03/15/2015 12:01 AM | | | | | PDT | | + + + + + | Height | 162.6 cm (5' 4") | 03/15/2015 12:01 AM | | | | | PDT | | + + + + + | Body Mass Index | 20.6 | 03/15/2015 12:01 AM | | | | | PDT | | + + + + + documented in this encounter Discharge Instructions Instructions Rajiv Vieyra MD - 03/15/2015Take medication as prescribed Follow-up with Dr. Keating No lifting over 10 pounds for one week AttachmentsThe following attachments cannot be sent through Care Everywhere.THORACIC STRAIN (PALAUAN)documented in this encounter Medications at Time of [...] + + + +---------+ + + | cyclobenzaprine | Take 1 tablet by | 20 | 0 | 03/15/20 | | | (FLEXERIL) 10 mg | mouth 3 times daily | tablet | | 15 | 5 | | tablet | as needed for Muscle | | | | | | | spasms for up to 14 | | | | | | | days. | | | | | + [...] | | | HYDROcodone-acetamin | mouth every 8 hours | | | | 5 | | ophen (NORCO) | as needed for Pain | | | | | | 7.5-325 mg per | (pain on right side | | | | | | tablet | ovaries?). | | | | | + + [...] + +--------+ + + + | XR THORACIC SPINE 2 | STAT | 03/15/2015 | | Results for this | | VW | | 12:44 AM | | procedure are in the | | | | PDT | | results section. | + +--------+ + + + | ED INFORMATION | Routin | 03/14/2015 | | Results for this | | EXCHANGE | e | 11:27 PM | | procedure are in the | | | | PDT | | results section. | + +--------+ + + + documented in this encounter Results XR Thoracic Spine 2 Vw (03/15/2015 12:44 AM PDT) + + | Specimen | + + | | + + + + + | Narrative | Performed At | + + + | XR THORACIC SPINE 2 VW 03/15/2015 12:28 AM HISTORY: BACK INJURY. | [facility] | | COMPARISON: 05/25/2006. FINDINGS: There is mild left curvature | | | of the thoracic spine. Bone mineralization is normal. Vertebral body | | | height are preserved with no evidence for compression fractures. | | | Disc height are maintained. Facet joints are intact. Visualized chest | | | and abdomen show no acute findings. Soft tissue structures are | | | unremarkable. IMPRESSION - No acute findings. Dictated and | | | Signed by: Yovani Upton MD Electronically signed: 03/15/2015 3:14 | | | PM | | + + + + + | Procedure Note | + + | Honorio, Rad Results In - 03/15/2015 3:17 PM PDT XR THORACIC SPINE 2 VW 03/15/2015 12:28 | | AMHISTORY: BACK INJURY.COMPARISON: 05/25/2006.FINDINGS:There is mild left curvature of | | the thoracic spine. Bone mineralization isnormal. Vertebral body height are preserved | | with no evidence for compressionfractures. Disc height are maintained. Facet joints are | | intact. Visualized chestand abdomen show no acute findings. Soft tissue structures are | | unremarkable.IMPRESSION -No acute findings.Dictated and Signed by: Yovani Upton MD | | Electronically signed: 03/15/2015 3:14 PM | |There is mild left curvature of the thoracic spine. Bone mineralization is | |normal. Vertebral body height are preserved with no evidence for compression | |fractures. Disc height are maintained. Facet joints are intact. Visualized chest | |and abdomen show no acute findings. Soft tissue structures are unremarkable. | | | |IMPRESSION - | |No acute findings. | | | |Dictated and Signed by: Yovani Upton MD | | Electronically signed: 03/15/2015 3:14 PM | + + + +---------+ + + | Performing | Address | City/State/Zipcode | Phone Number | | Organization | | | | + +---------+ + + | [facility] | | | | + +---------+ + + ED INFORMATION EXCHANGE (03/14/2015 11:27 PM PDT) + + | Specimen | + + | | + + + + + | Narrative | Performed At | + + + | ED/UCC VISIT TRACKING (3 MO.) Visit Date | [place] | | Location Type | | | Dx / Complaint -------- | | | ---- | | | 03/14/2015 23:24 [facility] | | | [facility] lower back injury | | | 01/04/2015 00:35 [facility] | | | Emergency RT FLANK PAIN INPATIENT VISIT TRACKING (1 MO.) | | | Visit Date LocationTypeDx / Complaint | | | ED VISIT | | | COUNT (1 YR.) Visits Medicaid [place] Dx Location ------ | | | --------- 1 0 | | | [facility] 9 0 | | | [facility] 10 0 | | | Total Note: Visits indicate total known visits. Medicaid | | | [place] Dx are the number of primary diagnoses on the [facility]'s non-emergent dx | | | list. | | | | | | --- [facility] has no Care Guidelines for this patient. [place] | | | Prescription Review PDMP Report (previous six months). Fill Date | | | Drug Description Qty. Prescriber | | | CS MED --------- | | | ---- -- | | | --- 2015-03-05 HYDROCODON-ACETAMINOPH 7.5-325 40 | | | ANSON WOODSON 2 23.07 2015-02-05 | | | HYDROCODON-ACETAMINOPH 7.5-325 30 EDENILSON MOONEY | | | 2 22.5 2015-01-26 ACETAMINOPHEN-COD #3 TABLET | | | 16 [address] CALLEJASEdd 3 36.0 | | | 2015-01-22 HYDROCODON-ACETAMINOPHEN 5-325 24 EDENILSON MOONEY | | | 2 30.0 12 Month Prescription Summary | | | -Number of CS Rx:14 -Number of CS-II Rx:13 -Total dispensed | | | quantity:310 -Unique Prescribers:6 -Unique Pharmacies:3 | | | -Opioid Rx Count:14 -Long Acting Opioid Rx Count:0 -Benzo Rx | | | Count:0 | | + + + + +---------+ + + | Performing | Address | City/State/[facility] | Phone Number | | Organization | | | | + +---------+ + + | [place] | | | | + +---------+ + + documented in this encounter Visit Diagnoses + + | Diagnosis | + + | Thoracic myofascial strain, initial encounter - Primary | + + documented in this encounter Administered Medications + + + +-------+------+------+ | Medication Order | MAR | Action | Dose | Rate | Site | | | Action | Date | | | | + + + +-------+------+------+ | cyclobenzaprine (FLEXARIL) | Dispense | 03/15/20 | 10 mg | | | | tablet (ER Prepack) 10 mg 10 mg, | to Home | 15 1:42 | | | | | Oral, ONCE, 03/15/15 at | | AM PDT | | | | | 0055, For 1 dose, Take 1 tablet | | | | | | | every 8 hours prn muscle spasm | | | | | | | Dispense for home use., | | | | | | + + + +-------+------+------+ +---+---+ | | | +---+---+ documented in this encounter
--- OUTSIDE RECORDS SUMMARY | ~2019-10-30 | XMS | Encounter Summary ---
Demographics + + + | Address | [address] | | | [place] [address] | + + + | Home Phone [...] | | | | | [place] [address] | | + + + + + | Ab Bunch | ECON | Unknown | | + + + + + Care Team Providers + +------+ + | Care Glacing Machine Tender Name | Role | Phone [...] | | | pain | | [place] [address] | | | | | [R10.31] | | Phone: | | | | | Procedures | | [phone] | | | | | [place] | | Fax: | | | | | LAP,DIAGNOST | | [phone] | | | | | IC ABDOMEN [...] | | | | | [address] | [address] [place] | | | | | [place], [place] | [place] [address] | | | | | [address] | [phone] | | | | | [phone] | | | +--------+ + + + [...] +----+---+ + + | | 0 | [place] | | | | 7 | 43-degrees | | | | 5 | | | | | 1 | | | +----+---+ + + | | 0 | First | | | | [address] | [address] | | | | 0 | | | | | 5 | | | +----+---+ + + | | 0 | [place] [address] | | | | 8 | [...]
--- OUTSIDE RECORDS SUMMARY | ~2019-10-30 | XMS | Encounter Summary ---
Demographics + + + | Address | [address] | | | [place] [address] | + + + | Home Phone [...] | | | | | [place] [address] | | + + + + + | Ab Romykia | ECON | Unknown | | + + + + + Care Team Providers + +------+ + | Care Printing And Stamping Supervisor Name | Role | Phone | + +------+ + PCP | Unavailable | + +------+ + Encounter Details +--------+ + + + + | Date | Type | Department | Care Team | Description | +--------+ + + + + | 11/30/ | Hospital | [facility] | Mukesh Coppola | | | 2011 | Encounter | MED CTR EMERGENCY | MD Fernando [address] | | | | | CENTER [address] | [address] [place] | | | | | [place], [place] | [place] [address] | | | | | [address] | [phone] | | | | | [phone] | | | +--------+ + + + [...]
--- OUTSIDE RECORDS SUMMARY | ~2019-10-30 | XMS | Encounter Summary ---
Demographics + + + | Address | [address] | | | [place] [address] | + + + | Home Phone | | + + + | Preferred Language | Unknown | + + + | Marital Status | Single | + + + | Episcopal Affiliation | 1013 | + + + | Race | Unknown | + + + | Ethnic Group | Unknown | + + + Author + + + | Author | [facility] | | | and Johnana | + + + | Organization | [facility] | | [...] | | | | | [place] [address] | | + + + + + | Ab Romykia | ECON | Unknown | | + + + + + Care Team Providers + +------+ + | Care Color Artist Name | Role | Phone | + [...] + + | 05/17/ | Emergency | [facility] | Billy Munoz, | Abdominal pain, | | 2016 | | MED CTR EMERGENCY | [place] [address] | unspecified location | | | | CENTER [address] | [place] | (Primary Dx) | | | | [place] | [address] | | | | | [address] | | | | | | [phone] | | | +--------+ + + + [...] be sent through Care Everywhere.ABDOMINAL PAIN, ADULT (EMIRATI)documented in this encounter Medications at Time of [...] Abdomen Pelvis w Contrast (05/17/2016 9:16 PM [facility]) + + | Specimen | + + [...] ER staff by the | | | [facility] radiologist on May 17, 2016 at [...] [facility] | | 2015 [...] reported to [facility] | |radiologist on May 17, 2016 [...] | 1.010, 1.015, | | | | [place], | | 1.020, 1.025 | | | | POC | | | | | + + + + + + | Lot Number | [id number] | | | | + + + [...] [address] | [place] | [phone] | | [facility] | | [address] | | | - LABORATORY | | [...] 0.58 (L) | 0.60 - 1.30 | [facility] | | | | | mg/dL | [facility] | | | | | | MEDICAL | | | | | | CENTER - | | | | | | LABORATORY | | + + + + + + | eGFR if not | >60Comment: GLOMERULAR | >=60 | [facility] | | | | FILTRATION | mL/min/1.73m2 | [facility] | | | BERMUDIAN | RATE,ESTIMATED | | MEDICAL | | | | mL/min/1.78s2Nnvs than | | CENTER - | | [...] [address] | [place] | [phone] | | [facility] | | [address] | | | - LABORATORY | | [...] ST. | [address] | [place] | [phone] | | [facility] | | [address] | | | - LABORATORY | | [...] 1.001 - 1.030 | | | | [place], | | | | | | UA, [...]
--- OUTSIDE RECORDS SUMMARY | ~2019-10-30 | XMS | Encounter Summary ---
Demographics + + + | Address | [address] | | | [place] [address] | + + + | Home Phone [...] + + + | Author | [facility] | | | and Johnana | + + + | Organization | [facility] | | | and [...] | | | | | [place] [address] | | + + + + + | Ab Romykia | ECON | Unknown | | + + + + + Care Team Providers + +------+ + | Care Mine Wirer Name | Role | Phone | + [...] + + | 12/11/ | Emergency | [facility] | Jesse Newman, | Pelvic cramping | | 2018 | | MED CTR EMERGENCY | [place] [address] | (Primary Dx); | | | | [place] [address] | [place] | Vaginal bleeding, | | | | [place], [place] | [address] | abnormal | | | | [address] | | | | | | [phone] | | | +--------+ + + + [...] cannot be sent through Care Everywhere.Bowen Juarez (Korean)documented in this encounter Medications at Time of [...] K?MRN: | | | | | | [id number] | | | [id number] | | | his | | | [...] | | | ent/a9 | | | [id number] | | | -[id number] | | | [...] | | | ordering provider, by the photographic processor, immediately following the | | | exam. [...] the ordering provider, by the | | photographic processor, immediately following the exam. | | | [...] [address] | [place] | [phone] | | [facility] | | [address] | | | - LABORATORY | | [...] - 1.030 | [facility] | | | [place], | | | [facility] | [...] | + + + + + | [facility] | [address] | [place], [place] | [phone] | | [facility] | | [address] | | | - LABORATORY | | [...] + | [facility] | [address] | [place] | [phone] | | [facility] | | [address] | | | - LABORATORY | | [...] + | [facility] | [address] | [place] | [phone] | | [facility] | | [address] | | | - LABORATORY | | [...] | 0.75 | 0.60 - 1.30 | [facility] | | | | | mg/dL | [facility] | | | | | | MEDICAL | | | | | | CENTER - | | | | | | LABORATORY | | + + + + + + | eGFR if not | >60Comment: GLOMERULAR | >=60 | [facility] | | | | FILTRATION | mL/min/1.73m2 | [facility] | | | DANISH | RATE,ESTIMATED | | MEDICAL | | | | mL/min/1.53w2Sqhp than | | CENTER - | | [...] [address] | [place] | [phone] | | [facility] | | [address] | | | - LABORATORY | | [...] [address] | [place] | [phone] | | [facility] | | [address] | | | - LABORATORY | | [...]
--- OUTSIDE RECORDS SUMMARY | ~2019-10-30 | XMS | Encounter Summary ---
Demographics + + + | Address | [address] | | | [place] [address] | + + + | Home Phone [...] + + | Author | [facility] | | | and Johnana | + + + | Organization | [facility] | | | [...] | | | | | [place] [address] | | + + + + + | Ab Julio C | ECON | Unknown | | + + + + + Care Team Providers + +------+ + | Care Automotive Manager Name | Role | Phone | [...] | | 2017 | Visit | [facility] [place] | [address] | female (Primary Dx); | | | | [address] | [place], [place] | Left ovarian cyst | | | | [place], [place] | [address] | | | | | [address] | | | | | | [phone] | | | +--------+---------+ + + + [...] treated for PID. This was at [facility] in [facility] with Dr Sánchez was treated with Doxycycline. [...] has been changed since signin Order Audit [place] gabapentin (NEURONTIN) 300 mg capsule (Taking/Discontinued) Take 300 mg by mouth 3 times daily. hydrOXYzine hydrochloride (ATARAX) 25 mg tablet (Taking) Take 50 mg by mouth Twice daily as needed for Anxiety. Number of times this order has been changed since signin Order Audit [place] Multiple Vitamins-Minerals (MULTIVITAL PO) (Taking) Take 1 tablet by mouth Daily. naproxen (NAPROSYN) 500 mg tablet (Taking) TAKE ONE TABLET TWICE DAILY WITH BREAKFAST AND DINNER Number of times this order has been changed since signin Order Audit [place] ondansetron (ZOFRAN ODT) 4 mg disintegrating tablet (Taking) Take 1 tablet by mouth every 6 hours as needed. Number of times this order has been changed since signin Order Audit [place] oxybutynin (DITROPAN) 5 mg tablet (Taking) oxyCODONE-acetaminophen (PERCOCET) 5-325 mg per tablet (Taking) Take 1 tablet by mouth ev donna 6 hours as needed for Pain. Number of times this order has been changed since signin Order Audit [place] oxyCODONE-acetaminophen (PERCOCET) 5-325 mg per tablet (Taking/Discontinued) Take 1 table t by mouth every 6 hours as needed for Pain. Number of times this order has been changed since signin Order Audit [place] traZODone (DESYREL) 100 mg tablet (Taking) Take 100 mg by mouth nightly as needed. 

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
--- OUTSIDE RECORDS SUMMARY | ~2019-10-30 | XMS | Encounter Summary ---
Demographics + + + | Address | [address] | | | [place] [address] | + + + | Home Phone | | + + + | Preferred Language | Unknown | + + + | Marital Status | Single | + + + | Gnosticism Affiliation | 1013 | + + + | Race | Unknown | + + + | Ethnic Group | Unknown | + + + Author + + + | Author | [facility] | | | and Johnana | + + + | Organization | [facility] | | [...] | | | | | [place] [address] | | + + + + + | Ab Romykia | ECON | Unknown | | + + + + + Care Team Providers + +------+ + | Care Mosquito Sprayer Name | Role | Phone | [...] + | 07/25/ | Telephone | [facility] | Pj Abdi, | ED; No Show | | 2018 | | [facility]IC[facility] [place] | [address] | | | | | [address] | [place] | | | | | [place] | [address] | | | | | [address] | | | | | | [phone] | | | +--------+ + + + [...]
--- OUTSIDE RECORDS SUMMARY | ~2019-10-30 | XMS | Encounter Summary ---
Demographics + + + | Address | [address] | | | [place] [address] | + + + | Home Phone [...] + + + | Author | [facility] | | | and Johnana | + + + | Organization | [facility] [...] | | | | | [place] [address] | | + + + + + | Ab Bunch | ECON | Unknown | | + + + + + Care Team Providers + +------+ + | Care Grain Buyer Name | Role | Phone | + [...] + + | 02/07/ | Telephone | [facility] | Pj Abdi, | No Show (Urology | | 2017 | | [facility] [place] | [address] | appts x 3) | | | | [address] | [place] | | | | | [place] | [address] | | | | | [address] | | | | | | [phone] | | | +--------+ + + + [...]
--- OUTSIDE RECORDS SUMMARY | ~2019-10-30 | XMS | Encounter Summary ---
Demographics + + + | Address | [address] | | | [place] [address] | + + + | Home Phone | | + + + | Preferred Language | Unknown | + + + | Marital Status | Single | + + + | Taoism Affiliation | 1013 | + + + | Race | Unknown | + + + | Ethnic Group | Unknown | + + + Author + + + | Author | [facility] | | | and Johnana | + + + | Organization | [facility] | [...] | | | | | [place] [address] | | + + + + + | Ab Romykia | ECON | Unknown | | + + + + + Care Team Providers + +------+ + | Care Plant Nursery Worker Name | Role | Phone | [...] + | 04/26/ | Refill | [facility] | Pj Abdi, | Medication Refill | | 2016 | | MEDICINE [place] | [address] | | | | | [address] | [place] | | | | | [place] | [address] | | | | | [address] | | | | | | [phone] | | | +--------+--------+ + + + [...]
--- OUTSIDE RECORDS SUMMARY | ~2019-10-30 | XMS | Encounter Summary ---
Demographics + + + | Address | [address] | | | [place] [address] | + + + | Home Phone [...] | | | | | [place] [address] | | + + + + + | Ab Bunch | ECON | Unknown | | + + + + + Care Team Providers + +------+ + | Care Circus Train Supervisor Name | Role | Phone | + +------+ + | No Unknownpcp | PCP | | + +------+ + Reason for Visit + + + | Reason | Comments | + + + | Shoulder Injury | Exam 3 - WC Follow up shoulder injury. Shoulder pain continues, | | | decreased ROM. Appointment with [facility] on 06/20. | + + + Encounter Details +--------+---------+ + + + | Date | Type | Department | Care Team | Description | +--------+---------+ + + + | 06/13/ | Office | [facility] | Rodney Mayer, | Strain of left | | 2020 | Visit | CARE [address] | [address] | shoulder, subsequent | | | | [place] | [place] | encounter (Primary | | | | [address] | [address] | Dx); Muscle spasm of | | | | [phone] | | back; Muscle spasms | | | | | | of neck | +--------+---------+ + + + Social History [...] + + + | Blood Pressure | 131/79 | 06/13/2019 8:19 PM | | | | | PST | | + + + + + | Pulse | 86 | 06/13/2019 8:19 PM | | | | | PST | | + + + + + | Temperature | 37.5 C (99.5 F) | 06/13/2019 8:19 PM | | | | | PST | | + + + + + | Respiratory Rate | 16 | 06/13/2019 8:19 PM | | | | | PST | | + + + + + | Oxygen Saturation | 100% | 06/13/2019 8:19 PM | | | | | PST [...] in this encounter Patient Instructions Patient Instructions Moreno Rodney Horne, - 06/13/2019 7:45 PM PST Shoulder Sprain A sprain is a stretching or tearing of the ligaments that hold a joint together. A sprain m ay take up to 8 weeks to fully heal, depending on how severe it is. Moderate to severe shoul debbie sprains are treated with a sling or shoulder immobilizer. Minor sprains can be treated w ithout any special support. Home care The following guidelines will help you care for your injury at home: If a sling was given to you, leave it in place for the time advised by your healthcare donta merchant. If you aren t sure how long to wear it, ask for advice. If the sling becomes loos e, adjust it so that your forearm is level with the ground. Your shoulder should feel well s upported. Put an ice pack on the injured area for 20 minutes every 1 to 2 hours the first day. You can make your own ice pack by putting ice cubes in a plastic bag. A bag of frozen peas or s omething similar works well too. Wrap the bag in a thin towel. Continue with ice packs 3 to 4 times a day for the next 2 to 3 days. Then use the pack as needed to ease pain and swellin g. You may use acetaminophen or ibuprofen to control pain, unless another pain medicine was prescribed.If you have chronic liver or kidney disease, talk with your healthcare provide r before using these medicines. Also talk with your provider if you ve had a stomach ulcer or gastrointestinal bleeding. Shoulder joints become stiff if left in a sling for too long. You should start range of motion exercises about 7 to 10 days after the injury. Talk with your provider to find out wh at type of exercises to do and how soon to start. Follow-up care Follow up with your healthcare provider, or as advised. Any X-rays you had today don t show any broken bones, breaks, or fractures. Sometimes fra ctures don t show up on the first X-ray. Bruises and sprains can sometimes hurt as much as a fracture. These injuries can take time to heal completely. If your symptoms don t impro ve or they get worse, talk with your provider. You may need a repeat X-ray or other treatmen ts. When to seek medical advice Call your healthcare provider right awayif any of these occur: Shoulder pain or swelling in your arm that gets worse Fingers become cold, blue, numb, or tingly Large amount of bruising of the shoulder or upper arm Fever or chills Date Last Reviewed: 12/22/201519999008-0092 [employer]. [address] [place] [address]. All [facility] ts reserved. This information is not intended as a substitute for professional medical care. Always follow your healthcare professional's instructions. documented in this encounter Progress Notes Rodney Mayer DO - 06/13/2019 7:45 PM PSTFormatting of this note might be different from rody albrecht. Subjective: Donna Camarena is a 23 y.o. female here for Shoulder Injury (Exam 3 - WC Follow up s ulder injury. Shoulder pain continues, decreased ROM. Appointment with [facility] on 06/20. ) HPI This is a 23-year-old female presenting to urgent care to follow-up on a work-related injur y she sustained on 04 June. She reports of right thumb pain due to a sprain that occurre d while she was catching a dough tray at work. However her pain is worse today for her left shoulder for which she was uncertain at first of the mechanism of injury. However now she thinks that it "gave out" when she was catching the dose tray. Initially was given an injec tion of steroid by another colleague and she reports of no improvement whatsoever. She repo rts of worsening pain with much limited range of motion. Initial limitation or restriction but is to not work overhead activities. She reports of some radiation of pain down the arm. At her last follow-up she was given a injection of Toradol due to the pain. She currently now takes ibuprofen and Tylenol for the pain though she reports of minimal improvement. Sh e reports of shoulder spasm with upper neck along with mid back as well Outpatient Encounter Medications as of 06/13/2019 Medication Sig Dispense Refill gabapentin (NEURONTIN) 300 mg capsule TAKE TWO CAPSULES THREE TIMES A DAY 180 capsule 5 methocarbamol (ROBAXIN) 500 mg tablet Take 2 tablets by mouth every 6 hours as needed f or up to 10 days. 36 tablet 0 Multiple Vitamins-Minerals (ONE DAILY WOMENS 50 PLUS PO) Take by mouth. naproxen (NAPROSYN) 500 mg tablet TAKE ONE TABLET TWICE A DAY WITH BREAKFAST AND DINNER 60 tablet 5 ondansetron (ZOFRAN) 4 mg tablet TAKE ONE TABLET EVERY 8 HOURS NEEDED FOR NAUSEA 45 tablet 3 SUBOXONE 8-2 MG SL film 10 mg Daily. 0 No facility-administered encounter medications on file as of 06/13/2019. Allergies Allergen Reactions Dimetapp Cold-Allergy Hives,Rash Meloxicam Hives,Anxiety,Rash Intolerance Allergen Reactions Nortriptyline Other (See Comments) INEFFECTIVE Past Medical History: Diagnosis Date Anxiety Chronic low back pain 09/21/2016 DDD (degenerative disc disease), lumbar 09/21/2016 Depression Environmental allergies Facet arthritis of lumbar region 09/21/2016 PONV (postoperative nausea and vomiting) Scoliosis Wears dentures upper partial (has lower but doesn't wear) Past Surgical History: Procedure Laterality Date APPENDECTOMY 2011 Dr. Fernández; [facility] LAPAROSCOPY N/A 06/16/2015 Procedure: Diagnostic Laparoscopy laparoscopic ovarian drilling,right; Surgeon: Nikko Sánchez DO; Location: [facility] MAIN OR OVARIAN CYST REMOVAL 2011 Dr. Fernández; [facility] OVARIAN CYST REMOVAL 2013 Dr. Fernández; [facility] SALPINGO-OOPHORECTOMY Right 03/11/2016 Procedure: Laparoscopic R.S.O.; Surgeon: Nikko Sánchez DO; Location: [facility] MAIN OR STEFANO AND BSO Right 02/2016 right tube removed as well Family History Problem Relation Age of Onset No known problems Father Alcohol abuse Mother Mental illness Mother Cervical cancer Mother No known problems Paternal Grandfather No known problems Paternal Grandmother No known problems Maternal Grandfather No known problems Maternal Grandmother No known problems Child No known problems Child Social History Socioeconomic History Marital status: Single Spouse name: DOT CARD Number of children: 2 Years of education: G.E.D. 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 Social Needs Financial resource strain: Not on file Food insecurity: Worry: Not on file Inability: Not on file Transportation needs: Medical: Not on file Non-medical: Not on file Tobacco Use Smoking status: Current Every Day Smoker Packs/day: 1.00 Years: 14.00 Pack years: 14.00 Types: Cigarettes Start date: 09/17/2009 Smokeless tobacco: Never Used Substance and Sexual Activity Alcohol use: Yes Alcohol/week: 0.0 standard drinks Comment: rarely Drug use: No Sexual activity: Yes Partners: Male control/protection: Yes Comment: [place] Lifestyle Physical activity: Days per week: Not on file Minutes per session: Not on file Stress: Not on file Relationships Social connections: Talks on phone: Not on file Gets together: Not on file Attends congregational service: Not on file Active member of club or organization: Not on file Attends meetings of clubs or organizations: Not on file Relationship status: Not on file Intimate partner violence: Fear of current or ex partner: Not on file Emotionally abused: Not on file Physically abused: Not on file Forced sexual activity: Not on file Other Topics Concern Not on file Social History Narrative Not on file Review of Systems Constitutional: Negative. Respiratory: Negative. Cardiovascular: Negative. Gastrointestinal: Negative for nausea and vomiting. Musculoskeletal: Positive for back pain, joint pain and neck pain. Negative for falls and m yalgias. Skin: Negative. Neurological: Positive for sensory change. Negative for tingling. Objective: BP 131/79 | Pulse 86 | Temp 37.5 C (99.5 F) (Temporal) | Resp 16 | LMP 05/17/2019 | SpO2 100% Physical Exam Constitutional: She is oriented to person, place, and time and well-developed, well-nourish ed, and in no distress. No distress. HENT: Head: Normocephalic and atraumatic. Eyes: Conjunctivae are normal. Musculoskeletal: Left shoulder: She exhibits decreased range of motion, tenderness, bony tenderness, pain and spasm. She exhibits no swelling, no effusion, no crepitus, no deformity, no laceration, normal pulse and normal strength. Cervical back: She exhibits tenderness, pain and spasm. Thoracic back: She exhibits decreased range of motion, tenderness, pain and spasm. Back: Arms: Neurological: She is alert and oriented to person, place, and time. She has intact cranial nerves. She displays no weakness and normal reflexes. No cranial nerve deficit. Gait normal. Reflex Scores: Tricep reflexes are 2+ on the right side and 2+ on the left side. Bicep reflexes are 2+ on the right side and 2+ on the left side. Brachioradialis reflexes are 2+ on the right side and 2+ on the left side. Nursing note and vitals reviewed. Assessment/Plan: ICD-10-CM ICD-9-CM 1. Strain of left shoulder, subsequent encounter S46.912D V58.89 methocarbamol (ROBAXIN) 50 0 mg tablet 840.9 2. Muscle spasm of back M62.830 724.8 methocarbamol (ROBAXIN) 500 mg tablet 3. Muscle spasms of neck M62.838 728.85 methocarbamol (ROBAXIN) 500 mg tablet New restrictions of her shoulder to not work above shoulder instead of just overhead. Limi ting her weight of lifting to 10 pounds. Remain wearing the right thumb spica for her thumb injury which she did not complain of today. Encourage patient to follow-up with [facility] for further evaluation and treatment. She has an appointment on the . In the meantime muscle relaxants will be prescribed. Continue to take ibuprofen or Tylenol for pain. Return if symptoms worsen or fail to improve, for F/u with [facility]. Patient understands, accepts, and agrees with this plan. Rodney Mayer DO, FAAFP [facility] umented in this encounter Plan of Treatment Not on filedocumented as of this encounter Visit Diagnoses + + | Diagnosis | + + | Strain of left shoulder, subsequent encounter - Primary | + + | Muscle spasm of back Other symptoms referable to back | + + | Muscle spasms of neck Spasm of muscle | + + documented in this encounter
--- OUTSIDE RECORDS SUMMARY | ~2019-10-30 | XMS | Encounter Summary ---
Demographics + + + | Address | [address] | | | [place] [address] | + + + | Home Phone [...] | | | | | [place] [address] | | + + + + + | Ab Bunch | ECON | Unknown | | + + + + + Care Team Providers + +------+ + | Care Glass Cleaner Name | Role | Phone | + +------+ + | Pj Abdi MD | PCP | | + +------+ + Encounter Details +--------+ + + + + | Date | Type | Department | Care Team | Description | +--------+ + + + + | 10/26/ | Abstract | [facility] | Jin Pj Caryl, | | | 2017 | | MEDIC[facility] [place] | [address] | | | | | [address] | [place] | | | | | [place] | [address] | | | | | [address] | | | | | | [phone] | | | +--------+ + + + [...]
--- OUTSIDE RECORDS SUMMARY | ~2019-10-30 | XMS | Encounter Summary ---
Demographics + + + | Address | [address] | | | [place] [address] | + + + | Home Phone [...] | | | | | [place] [address] | | + + + + + | Ab Romykia | ECON | Unknown | | + + + + + Care Team Providers + +------+ + | Care Paint Stock Clerk Name | Role | Phone | + +------+ + PCP | Unavailable | + +------+ + Encounter Details +--------+ + + + + | Date | Type | Department | Care Team | Description | +--------+ + + + + | 03/25/ | Hospital | [facility] | Mike Dowd W, | | | 2009 | Encounter | [facility] | MD [address] [facility] | | | | | [facility] [address] | [place], [place] | | | | | [place], | [address] | | | | | [place] [address] | [phone] | | | | | [phone] | | | +--------+ + + + [...]
--- OUTSIDE RECORDS SUMMARY | ~2019-10-30 | XMS | Encounter Summary ---
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 [address] | | | | n | of left | [address] | [place], | | | | | shoulder | [place], | [place] [address] | | | | | Sprain of | [place] [address] | Phone: | | | | | right wrist, | Phone: | [phone] | | | | | initial | [phone] | Fax: | | | | | encounter | Fax: | [phone] | | | | | M75.42 | [phone] | | | | | | (ICD-10-CM) [...] + + | 04/05/ | Office | [facility] | Herber Allen, | Impingement syndrome | | 2017 | Visit | [facility] [place] | 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 These help reduce pain and swelling. [...] had surgery. New symptoms Date Last Reviewed: 07/31/201519990411-5127 [employer]. [address] [place] [address]. All righ ts reserved. This information is [...] strength Fever or chills Date Last Reviewed: 12/22/201519993891-3286 [employer]. [address] [place] [address], [place] [address]. All righ ts reserved. This information is [...] has been changed since signin [facility] [place] HYDROcodone-acetaminophen (NORCO) 5-325 mg per tablet Starting on 04/09/2017. Take 1 table t by mouth every 6 hours as needed for Pain (for severe break through pain). Number of times this order has been changed since signin [facility] [place] hydrOXYzine hydrochloride (ATARAX) 25 mg tablet (Taking) TAKE TWO TABLETS EVERY SIX HOURS NEEDED FOR ANXIETY OR ITCHING Number of times this order has been changed since signin [facility] [place] naproxen (NAPROSYN) 500 mg tablet (Taking) TAKE ONE TABLET TWICE DAILY WITH BREAKFAST AND DINNER Number of times this order has been changed since signin [facility] [place] ondansetron (ZOFRAN ODT) 4 mg disintegrating tablet (Taking) DISSOLVE ONE TABLET UNDER TH E TONGUE EVERY EIGHT HOURS NEEDED FOR NAUSEA Number of times this order has been changed since signin [facility] [place] propranolol (INDERAL) 10 mg tablet (Taking) Take 1 tablet by mouth 2 times daily. Number of times this order has been changed since signin [facility] [place] tiZANidine (ZANAFLEX) 4 mg tablet (Taking) Take 1 tablet by mouth every 6 hours as needed . Number of times this order has been changed since signin [facility] [place] traZODone (DESYREL) 100 mg tablet (Taking) Take 0.5-1 tablet nightly as needed for sleep Number of times this order has been changed since signin [facility] [place] venlafaxine (EFFEXOR XR) 150 mg 24 hr capsule (Taking) Take 1 capsule by mouth Daily. Number of times this order has been changed since signin [facility] [place] Past Medical History She has a past [...] 2 Years of education: G.E.D. 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 Impingement syndrome of left shoulder * [facility] Therapy - AMB Referral 2. Sprain of right wrist, initial encounter XR Wrist Right 3 + Vw * [facility] Therapy - AMB Referral Plans: 1. [...] of shoulder strength Fever or chills- * [facility] Therapy - AMB Referral 2. Sprain [...] Right 3 + Vw; Future - * [facility] Physical Therapy - AMB Referral Follow-up: Return [...]
--- OUTSIDE RECORDS SUMMARY | ~2019-10-30 | XMS | Encounter Summary ---
Demographics + + + | Address | [address] | | | [place] [address] | + + + | Home Phone [...] | | | | | [place] [address] | | + + + + + | Ab Romykia | ECON | Unknown | | + + + + + Care Team Providers + +------+ + | Care Videotape Sales Representative Name | Role | Phone | + [...] + + + + | 11/11/ | Emergency | [facility] | Rajiv Vieyra, | Pelvic pain in | | 2016 - | | MED CTR EMERGENCY | [place] [address] | female (Primary Dx) | | | | CENTER [address] | [facility] [place] | | | 11/12/ | | [place] | [place] [address] | | | 2015 | | [address] | [phone] | | | | | [phone] | | | +--------+ + + + [...] + + + | Blood Pressure | 127/71 | 11/12/2015 11:10 PM | | | | | PDT | | + + + + + | Pulse | 95 | 11/12/2015 11:10 PM | | | | | PDT | | + + + + + | Temperature | 36.8 C (98.2 F) | 11/12/2015 11:10 PM | | | | | PDT | | + + + + + | Respiratory Rate | 16 | 11/12/2015 11:10 PM | | | | | PDT | | + + + + + | Oxygen Saturation | 100% | 11/12/2015 11:10 PM | | | | | PDT | | + + + + + | Inhaled Oxygen | - | - | | | Concentration | | | | + + + + + | Weight | 55.3 kg (122 lb) | 11/12/2015 11:10 PM | | | | | PDT | | + + + + + | Height | 162.6 cm (5' 4") | 11/12/2015 11:10 PM | | | | | PDT | | + + + + + | Body Mass Index | 20.94 | 11/12/2015 11:10 PM | | | | | PDT | | + + + + + documented in this encounter Discharge Instructions Instructions Rajiv Vieyra MD - 11/13/2015Take the medicine as prescribed See your primary care provider Follow up with HEATING AND VENTILATING WORKER AttachmentsThe following attachments cannot be sent through Care Everywhere.OVARIAN CYSTS ( TONGAN)documented in this encounter Medications at Time of [...] INFORMATION | CELSO | Routin | | 11/12/2015 11:08 PM | | EXCHANGE | | e | | PDT | + +------+--------+ + + documented as of this encounter Procedures + +--------+ + + + | Procedure Name | Priori | Date/Time | Associated Diagnosis | Comments | | | ty | | | | + +--------+ + + + | XR LUMBAR SPINE 2 OR | STAT | 11/13/2015 | | Results for this | | 3 VW | | 12:29 AM | | procedure are in the | | | | PDT | | results section. | + +--------+ + + + | POCT URINALYSIS, | STAT | 11/12/2015 | | Results for this | | AUTO WITH CONF | | 11:49 PM | | procedure are in the | | | | PDT | | results section. | + +--------+ + + + | POCT TEST, | STAT | 11/12/2015 | | Results for this | | URINE, QUAL | | 11:48 PM | | procedure are in the | | | | PDT | | results section. | + +--------+ + + + | ED INFORMATION | Routin | 11/12/2015 | | | | EXCHANGE | e | 11:08 PM | | | | | | PDT | | | + +--------+ + + + documented in this encounter Results XR Lumbar Spine 2 or 3 Vw (11/13/2015 12:29 AM PDT) + + | Specimen | + + | | + + + + + | Narrative | Performed At | + + + | XR LUMBAR SPINE 2 OR 3 VW. 11/13/2015 12:29 AM HISTORY: right | [facility] | | side low back pain to right leg . COMPARISON: None available. | | | FINDINGS: There is a transitional lumbovertebral segment, with | | | sclerotic change at the right transverse process at this level, | | | suggestive of pseudoarticulation with the main body of the sacrum, | | | which can be a source of pain. Vertebral body heights are | | | maintained. Alignment is maintained, without evidence of fracture | | | or subluxation. Disc heights are maintained. Facets are within | | | normal limits. IMPRESSION - Transitional lumbovertebral | | | segment, with sclerotic change at the right transverse process at | | | that level, suggestive of pseudoarticulation with the main body of | | | the sacrum, which can be a source of pain. No degenerative change, | | | spondylolisthesis, or acute fracture or subluxation. Dictated and | | | Signed by: Pasquale Almendarez MD Electronically signed: 11/13/2015 | | | 9:52 AM | | + + + + + | Procedure Note | + + | Brown Olmedo Results In - 11/13/2015 9:55 AM PDT XR LUMBAR SPINE 2 OR 3 VW. 11/13/2015 | | 12:29 AMHISTORY: right side low back pain to right leg . COMPARISON: None | | available.FINDINGS:There is a transitional lumbovertebral segment, with sclerotic change | | at theright transverse process at this level, suggestive of pseudoarticulation withthe | | main body of the sacrum, which can be a source of pain. Vertebral bodyheights are | | maintained. Alignment is maintained, without evidence of fractureor subluxation. Disc | | heights are maintained. Facets are within normal limits.IMPRESSION -Transitional | | lumbovertebral segment, with sclerotic change at the righttransverse process at that | | level, suggestive of pseudoarticulation with the mainbody of the sacrum, which can be a | | source of pain.No degenerative change, spondylolisthesis, or acute fracture or | | subluxation.Dictated and Signed by: Pasquale Almendarez MD Electronically signed: | | 11/13/2015 9:52 AM | | | | | |IMPRESSION - | |Transitional lumbovertebral segment, with sclerotic change at the right | |transverse process at that level, suggestive of pseudoarticulation with the main | |body of the sacrum, which can be a source of pain. | |No degenerative change, spondylolisthesis, or acute fracture or subluxation. | | | |Dictated and Signed by: Pasquale Almendarez MD | | Electronically signed: 11/13/2015 9:52 AM | + + + +---------+ + + | Performing | Address | City/State/Zipcode | Phone Number | | Organization | | | | + +---------+ + + | [facility] | | | | + +---------+ + + POCT Urinalysis Dipstick Automated (11/12/2015 11:49 PM PDT) + + + + + [...] - 1.030 | | | | [place], | | | | | | UA, POC | | | | | + + + + + + | Blood, UA, | Small (A) | Negative | | | | POC | | | | | + + + + + + | pH, UA, POC | 7.0 | 5.0, 6.0, 7.0, | | | [...] | | (specimen) | + + POCT Test, Urine, QUAL (11/12/2015 11:48 PM PDT) + + + + + [...] 1.010, 1.015, | | | | [place], | | 1.020, 1.025 | | | | POC | | | | | + + + + + + | Lot Number | [id number] | | | | + + + + + + | Expiration | 9-2016 | | | | | Date | [...] genital | | organs | + + documented in this encounter Administered Medications + + + + +------+------+ | Medication Order | MAR | Action | Dose | Rate | Site | | | Action | Date | | | | + + + + +------+------+ | HYDROcodone-acetaminophen | Dispense | 11/13/19 | 1 tablet | | | | (NORCO) 5-325 mg per tablet (ER | to Home | 16 12:55 | | | | | Prepack) 1-2 tablet 1-2 tablet, | | AM PDT | | | | | Oral, ONCE, [facility] 11/13/15 at 0045, | | | | | | | For 1 dose, 1-2 tablets every 6 | | | | | | | hours prn pain, | | | | | | + + + + +------+------+ +---+---+ | | | +---+---+ + +-------+ +---------+---+---+ | HYDROcodone-acetaminophen | Given | 11/12/19 | 2 | | | | (NORCO) 5-325 mg per tablet 2 | | 16 11:42 | tablets | | | | tablet 2 tablet, Oral, ONCE, Wed | | PM PDT | | | | | 11/12/15 at 2340, For 1 dose | | | | | | + +-------+ +---------+---+---+ +---+---+ | | | +---+---+ + +-------+ +--------+---+---+ | naproxen (NAPROSYN) tablet 500 | Given | 11/13/19 | 500 mg | | | | mg 500 mg, Oral, ONCE, Joanie | | 16 12:54 | | | | | 11/13/15 at 0045, For 1 dose, Give | | AM PDT | | | | | with food., | | | | | | + +-------+ +--------+---+---+ +---+---+ | | | +---+---+ documented in this encounter
--- OUTSIDE RECORDS SUMMARY | ~2019-10-30 | XMS | Encounter Summary ---
Demographics + + + | Address | [address] | | | [place] [address] | + + + | Home Phone [...] | | | | | [place] [address] | | + + + + + | Ab Romykia | ECON | Unknown | | + + + + + Care Team Providers + +------+ + | Care Product Safety Technician Name | Role | Phone | + +------+ + PCP | Unavailable | + +------+ + Encounter Details +--------+ + + + + | Date | Type | Department | Care Team | Description | +--------+ + + + + | 01/13/ | Hospital | [facility] | Mike Fernández MD | | | 2011 | Encounter | MED CTR XRAY [address] | [address] [facility] | | | | | [place] | [place], [place] | | | | | [place] [address] | [address] | | | | | [phone] | | | +--------+ + + + [...] Performed At | + + + | [facility] Diagnostic Imaging Department | [facility] | | [address] | [facility] | | Accession Number: [id number] | [facility] | | TRANSABDOMINAL AND TRANSVAGINAL PELVIC ULTRASOUND [...] Honorio, Rad Conversion - 06/29/2013 5:55 PM [facility] | | Diagnostic Imaging Department | | [address] | | | | | | | | Accession Number: [id number] | | | | | | TRANSABDOMINAL [...] Performed At | + + + | [facility] Diagnostic Imaging Department | [facility] | | [address] | [facility] | | TRANSABDOMINAL AND TRANSVAGINAL | DIAG [...] Transcribed Date/Time: 01/14/2012 17:33 | | | Drone Software Development Engineer: <Electronically Signed by Brad Cline MD> | | | 01/14/12 2324 | | + + + + + | Procedure Note | + + | Honorio, Brown Conversion - 06/29/2013 5:54 PM [facility] | | Diagnostic Imaging Department [address] [place] | | TRANSABDOMINAL AND TRANSVAGINAL PELVIC ULTRASOUND [...] 16:10 | |Transcribed Date/Time: 01/14/2012 17:33 | |Drone Software Development Engineer: | |<Electronically Signed by Brad Cline MD> [...]
--- OUTSIDE RECORDS SUMMARY | ~2019-10-30 | XMS | Encounter Summary ---
Demographics + + + | Address | [address] | | | [place] [address] | + + + | Home Phone [...] | | | | | [place] [address] | | + + + + + | Ab Bunch | ECON | Unknown | | + + + + + Care Team Providers + +------+ + | Care Donor Center Technician Name | Role | Phone | + +------+ + | Charles Allen MD | PCP | | + +------+ + Encounter Details +--------+ + + + + | Date | Type | Department | Care Team | Description | +--------+ + + + + | 10/03/ | Hospital | [facility] | Charles Allen MD | Myofascial pain | | 2020 | Encounter | MED CTR ULTRASOUND | [address] [facility]. | syndrome | | | | [address] [place] | [place], [place] | | | | | [place], [place] | [address] | | | | | [address] | | | | | | [phone] | | | +--------+ + + + [...] +---------+ + + | FLUoxetine | Take 20 mg by mouth | | 0 | | | | (PROZAC) 20 mg | Daily. | | | | | | capsule | | | | [...] this encounter Results US Pelvis W Transvaginal (10/04/2019 1:40 [...] + | Diagnosis | + + | Myofascial pain syndrome Mylagia and myositis, unspecified | + + documented in this encounter"
--- OUTSIDE RECORDS SUMMARY | ~2019-10-30 | XMS | Encounter Summary ---
Demographics + + + | Address | [address] | | | [place] [address] | + + + | Home Phone [...] + + + | Author | [facility] | | | and Johnana | + + + | Organization | [facility] | | [...] | | | | | [place] [address] | | + + + + + | Ab Bunch | ECON | Unknown | | + + + + + Care Team Providers + +------+ + | Care Embedded Systems Engineer Name | Role | Phone | [...] + + | 01/26/ | Office | [facility] | Marcy Naik | Pain (Primary Dx); | | 2014 | Visit | CARE [address] | DO Saundra Bass | Right wrist sprain, | | | | [place], [place] | [place], [place] | initial encounter | | | | [address] | [address] | | | | | [phone] | | | +--------+---------+ + + + [...] [address] | [place] | [phone] | | [facility] | | [address] | | | - IMAGING | | | | + + + + + documented in this encounter Visit Diagnoses + + | Diagnosis | + + | Pain - Primary Generalized pain | + + | Right wrist sprain, initial encounter | + + documented in this encounter
--- OUTSIDE RECORDS SUMMARY | ~2019-10-30 | XMS | Encounter Summary ---
Demographics + + + | Address | [address] | | | [place] [address] | + + + | Home Phone [...] | | | | | [place] [address] | | + + + + + | Ab Bunch | ECON | Unknown | | + + + + + Care Team Providers + +------+ + | Care Display Associate Name | Role | Phone | + +------+ + | Pj Abdi MD | PCP | | + +------+ + Encounter Details +--------+ + + + + | Date | Type | Department | Care Team | Description | +--------+ + + + + | 09/26/ | Hospital | [facility] | Pj Abdi, | Acute pain of left | | 2019 | Encounter | MED CTR XRAY [address] | [address] | knee | | | | [place] | [place], [place] | | | | | [place] [address] | [id number] | | | | | [phone] | | | +--------+ + + + [...]
--- OUTSIDE RECORDS SUMMARY | ~2019-10-30 | XMS | Encounter Summary ---
Demographics + + + | Address | [address] | | | [place] [address] | + + + | Home Phone [...] + + + | Author | [facility] | | | and Johnana | + + + | Organization | [facility] | | | [...] | | | | | [place] [address] | | + + + + + | Ab Romykia | ECON | Unknown | | + + + + + Care Team Providers + +------+ + | Care Cashier Assistant Name | Role | Phone | [...] | | | | | | [facility] [address] | | | | 07/24/ | | [place], | | | | 2010 | | [place] [address] | | | | | | [phone] | | | +--------+ + + + [...] + | [facility] | [address] | [place], [place] | [phone] | | [facility] | | [address] | | | - LABORATORY | | | | + + + + + | [facility] | [address] | [place], [place] | | | [facility] | | [id number] | | | - [...] [address] | [place] | [phone] | | [facility] | | [address] | | | - LABORATORY | | | | + + + + + | [facility] | [address] | [place], [place] | | | [facility] | | [address], [facility] | | | - [...] [address] | [place] | [phone] | | [facility] | | [address] | | | - LABORATORY | | | | + + + + + | [facility] | [address] | [place] | | | [facility] | | [id number] | | | - [...] - 1.030 | [facility] | | | [place], | | | [facility] | | [...] + | [facility] | [address] | [place], [place] | [phone] | | [facility] | | [address] | | | - LABORATORY | | | | + + + + + | [facility] | [address] | [place] | | | [facility] | | [address] | | | - LABORATORY | | | | + + + + + documented in this encounter Visit Diagnoses Not on filedocumented in this encounter"
--- OUTSIDE RECORDS SUMMARY | ~2019-10-30 | XMS | Encounter Summary ---
Demographics + + + | Address | [address] | | | [place] [address] | + + + | Home Phone [...] | | | | | [place] [address] | | + + + + + | Ab Romykia | ECON | Unknown | | + + + + + Care Team Providers + +------+ + | Care Butter Melter Name | Role | Phone | + [...] + | 05/03/ | Refill | [facility] | Pj Abdi, | Medication Refill | | 2016 | | [facility]IC[facility] [place] | [address] | | | | | [address] | [place] | | | | | [place] | [address] | | | | | [address] | | | | | | [phone] | | | +--------+--------+ + + + [...]
--- OUTSIDE RECORDS SUMMARY | ~2019-10-30 | XMS | Encounter Summary ---
Demographics + + + | Address | [address] | | | [place] [address] | + + + | Home Phone [...] + | Author | [facility] | | | and Johnana | + + + | Organization | [facility] | | | and [...] | | | | | [place] [address] | | + + + + + | Ab Bunch | ECON | Unknown | | + + + + + Care Team Providers + +------+ + | Care Geospatial Extractor Analysis Name | Role | Phone | + [...] + + | 03/12/ | [facility] | [facility] | Jimy Davis MD | Postoperative pain | | 2016 | | MED CTR EMERGENCY | [address] | (Primary Dx) | | | | CENTER [address] | [place] | | | | | [place] | [address] | | | | | [address] | | | | | | [phone] | | | +--------+ + + + [...] 03/12/2016Continue medications as previously Follow-up with her dustless operator on Tuesday Return for fever, worsening symptoms, [...]
--- OUTSIDE RECORDS SUMMARY | ~2019-10-30 | XMS | Encounter Summary ---
Demographics + + + | Address | [address] | | | [place] [address] | + + + | Home Phone [...] | | | | | [place] [address] | | + + + + + | Absweta Stantonkia | ECON | Unknown | | + + + + + Care Team Providers + +------+ + | Care Top Lift Scourer Name | Role | Phone | + [...] | [address] | | | | | [address] | | | | | | [phone] | | | +--------+ + + + [...]
--- OUTSIDE RECORDS SUMMARY | ~2019-10-30 | XMS | Encounter Summary ---
Demographics + + + | Address | [address] | | | [place] [address] | + + + | Home Phone [...] | | | | | [place] [address] | | + + + + + | Ab Bunch | ECON | Unknown | | + + + + + Care Team Providers + +------+ + | Care Interpretative Dancer Name | Role | Phone | + [...] | abdominal location | | | | [address] | [place] | (Primary Dx); | | | | [phone] | [address] | Abnormal vaginal | | | | [...] month. The bleeding may be heavier or corporate safety director than normal. If you have heavy bleeding [...] breath Dizziness or fainting Date Last Reviewed: 03/23/201719996909-0454 [employer]. [address] [place] [address]. All righ ts reserved. This information is [...] UA, POC Negative Negative, 100 mg/dL Specific [place], UA, POC 1.005 1.001 - 1.030 Blood, [...] Negative Negative Internal QC Acceptable Acceptable Specific [place], POC Lot Number [id number] Expiration Date 2020-07-24 CBC with Differential Result [...] is warranted. This note was dictated using [employer] voice recognition software. Occasional wrong- word or [...] + + | [facility] | [address] [facility] [address] | [place] | [phone] | | [facility] | | [address] | | | [address] | | [...] + + + | [facility] | [address] | [place] | [phone] | | [facility] | | [address] | | | [facility] | | [...] Specific | | | | | | [place], | | | | | | POC | | | | | + + + + + + | Lot Number | [id number] | | | | + + + [...] 1.001 - 1.030 | | | | [place], | | | | | | UA, [...]
--- OUTSIDE RECORDS SUMMARY | ~2019-10-30 | XMS | Encounter Summary ---
Demographics + + + | Address | [address] | | | [place] [address] | + + + | Home Phone [...] | | | | | [place] [address] | | + + + + + | Ab Bunch | ECON | Unknown | | + + + + + Care Team Providers + +------+ + | Care Information Clerk Brokerage Name | Role | Phone | + [...] | | | | | [address] | [address] [place] | | | | | [place], [place] | [place] [address] | | | | | [address] | [phone] | | | | | [phone] | | | +--------+---------+ + + + [...] or shortness of breath Dizziness or fainting 1019-3932 [employer]. [address] [place] [address]. All righ ts reserved. This information is [...] fallopian tube left. How to say it [id number] Why unilateral salpingo-oophorectomy is done This procedure [...] of unilateral salpingo-oophorectomy Stomach cancer Bleeding Infection 4962-7893 [employer]. [address] [place] [address], [place] [address]. All righ ts reserved. This information is [...] | 1.010, 1.015, | | | | [place], | | 1.020, 1.025 | | | [...] Clinical correlation | | | is needed. TJB:[facility]:C2NR GROSS DESCRIPTION: The specimen is | | [...] excrescences or mass-like lesions within the cyst. Concrete Layer | | | sections of ovary and fallopian tube are submitted in cassettes | | | (A1-A2). CLR:[facility] MICROSCOPIC EXAMINATION: Histologic sections of | | | all submitted blocks are examined by light microscopy. These | | | findings, together with the gross examination, support the pathologic | | | diagnosis. PERFORMING LABORATORY: Tissue processing and slide | | | preparation were performed by [employer], [facility], | | | [address], [place] [address] (Recycling Operator: Rafa Wing | | | Kb; CLIA#: [id number]). Professional interpretation was performed | | | by [employer], [facility], [address], [place], [place] | | | [address] (Recycling Operator: Rafa Wing M.D.; CLIA#: [id number]). | | | Diagnostician: Josh Garcia MD [...]
--- OUTSIDE RECORDS SUMMARY | ~2019-10-30 | XMS | Encounter Summary ---
Demographics + + + | Address | [address] | | | [place] [address] | + + + | Home Phone [...] | | | | | [place] [address] | | + + + + + | Ab Bunch | ECON | Unknown | | + + + + + Care Team Providers + +------+ + | Care Camera Prototyping Engineer Name | Role | Phone | + +------+ + | No Unknownpcp | PCP | | + +------+ + Reason for Visit + + + | Reason | Comments | + + + | Shoulder Injury | Exam 3 - WC Follow up shoulder injury. Shoulder pain continues, | | | decreased ROM. Appointment with [facility] med on 06/20. | + + + [...] | encounter (Primary | | | | [id number] | [id number] | Dx); Muscle spasm of | | | | [phone] | | back; Muscle spasms | | [...] arm Fever or chills Date Last Reviewed: 12/22/[id number] [employer]. [address] [place] [address]. All [facility] ts reserved. This information is not [...] Shoulder pain continues, decreased ROM. Appointment with [facility] med on 06/20. ) HPI This is [...] Procedure Laterality Date APPENDECTOMY 2011 Dr. Fernández; [facility] LAPAROSCOPY N/A 06/16/2015 Procedure: Diagnostic Laparoscopy laparoscopic ovarian drilling,right; Surgeon: Nikko Sánchez DO; Location: [facility] MAIN OR OVARIAN CYST REMOVAL 2011 Dr. Fernández; [facility] OVARIAN CYST REMOVAL 2013 Dr. 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 Encourage patient to follow-up with [facility] for further evaluation and treatment. She has an appointment on the . In the meantime muscle relaxants will be prescribed. Continue to take ibuprofen or Tylenol for pain. Return if symptoms worsen or fail to improve, for F/u with [facility] Med. Patient understands, accepts, and agrees with this plan. Rodney Mayer DO, FAAFP [facility] umented in this encounter Plan of Treatment [...]
--- OUTSIDE RECORDS SUMMARY | ~2019-10-30 | XMS | Encounter Summary ---
Demographics + + + | Address | [address] | | | [place] [address] | + + + | Home Phone [...] + + + | Author | [facility] | | | and Johnana | + + + | Organization | [facility] | [...] | | | | | [place] [address] | | + + + + + | Ab Romykia | ECON | Unknown | | + + + + + Care Team Providers + +------+ + | Care Licensed Staff Mft Name | Role | Phone | + [...] + + | 12/01/ | Telephone | [facility] | Alessandra Mercedes | Appointment (No-show | | 2017 | | [facility] | A, PharmD [address] | for pain contracts) | | | | [address] | [address] | | | | | [place] | [place] [address] | | | | | [address] | [phone] | | | | | [phone] | | | +--------+ + + + [...]
--- OUTSIDE RECORDS SUMMARY | ~2019-10-30 | XMS | Encounter Summary ---
Demographics + + + | Address | [address] | | | [place] [address] | + + + | Home Phone [...] | | | | | [place] [address] | | + + + + + | Ab Romykia | ECON | Unknown | | + + + + + Care Team Providers + +------+ + | Care Finance Broker Name | Role | Phone | + [...] + + + + | 01/13/ | Telephone | [facility] | Alma Delia Meeks | VIPIN Follow-up | | 2018 | | [facility]IC[facility] [place] | JAMEL Miguel | | | | | [address] | | | | | | [place] | | | | | | [address] | | | | | | [phone] | | | +--------+ + + + [...]
--- OUTSIDE RECORDS SUMMARY | ~2019-10-30 | XMS | Encounter Summary ---
Demographics + + + | Address | [address] | | | [place] [address] | + + + | Home Phone | | + + + | Preferred Language | Unknown | + + + | Marital Status | Single | + + + | Sikh Affiliation | 1013 | + + + [...] | | | | | [place] [address] | | + + + + + | Ab Romykia | ECON | Unknown | | + + + + + Care Team Providers + +------+ + | Care Quickbooks Bookkeeper Name | Role | Phone | + [...] + | 08/03/ | Telephone | [facility] | Pj Abdi, | Missed Visit | | 2018 | | MEDICINE [place] | [address] | | | | | [address] | [place] | | | | | [place] | [address] | | | | | [address] | | | | | | [phone] | | | +--------+ + + + [...]
--- OUTSIDE RECORDS SUMMARY | ~2019-10-30 | XMS | Encounter Summary ---
Demographics + + + | Address | [address] | | | [place] [address] | + + + | Home Phone [...] Hogan | ECON | [address] | | | | | [place] [address] | | + + + + + | Ab Bunch | ECON | Unknown | | + + + + + Care Team Providers + +------+ + | Care Cdl Company Flatbed Driver Name | Role | Phone | [...] + + | 07/12/ | Telephone | [facility] | Pj Abdi, | Medication Prior | | 2018 | | [facility] | [address] | Authorization | | | | [address] | [place] | (Oxybutynin Chloride | | | | [place] | [address] | ER) | | | | [address] | | | | | | [phone] | | | +--------+ + + + [...]
--- OUTSIDE RECORDS SUMMARY | ~2019-10-30 | XMS | Encounter Summary ---
Demographics + + + | Address | [address] | | | [place] [address] | + + + | Home Phone [...] | | | | | [place] [address] | | + + + + + | Ab Romykia | ECON | Unknown | | + + + + + Care Team Providers + +------+ + | Care Meat Packager Name | Role | Phone | + +------+ + PCP | Unavailable | + +------+ + Encounter Details +--------+ + + + + | Date | Type | Department | Care Team | Description | +--------+ + + + + | 02/26/ | Hospital | [facility] | Jarrell Rajiv Aleman, | | | 2008 | Encounter | [facility] | MD [address] | | | | | CENTER [address] | [facility] [place] | | | | | [place], [place] | [place] [address] | | | | | [address] | [phone] | | | | | [phone] | | | +--------+ + + + [...]
--- OUTSIDE RECORDS SUMMARY | ~2019-10-30 | XMS | Encounter Summary ---
Demographics + + + | Address | [address] | | | [place] [address] | + + + | Home Phone [...] | | | | | [place] [address] | | + + + + + | Ab Bunch | ECON | Unknown | | + + + + + Care Team Providers + +------+ + | Care Electrical Service Technician Name | Role | Phone | [...] + + | Closed | Specialty | Pharmacy | Diagnoses | Abdi, | [facility] | | | Services | | Insomnia, | Pj Hutson MD | Family | | | Required | | unspecified | [address] | Medicine | | | | | type Panic | [address] [place] | [place] | | | | | disorder | [place] | [address] | | | | | Generalized | [address] | [address] [place] | | | | | anxiety | Phone: | [place] | | | | | disorder | [phone] | [address] | | | | | | Fax: | Phone: | | | | | | [phone] | [phone] | | | | | | | Fax: | | | | | | | [phone] | +--------+ + + + + + Reason for Visit + + + | Reason | Comments | + + + | Depression | | + + + | Anxiety | | + + + | Insomnia | | + + + Encounter Details +--------+---------+ + + + | Date | Type | Department | Care Team | Description | +--------+---------+ + + + | 09/26/ | Office | [facility] | Pj Abdi, | Acute pain of left | | 2019 | Visit | [facility] | [address] | knee (Primary Dx); | | | | [address] | [place] | PONV (postoperative | | | | [place], [place] | [address] | nausea and | | | | [phone] | | vomiting); Abdominal | | | | [phone] | | pain, unspecified | | | | | | abdominal location; | | | | | | Arthralgia, | | | | | | unspecified joint; | | | | | | Exposure to STD; | | | | | | Insomnia, | | | | | | unspecified type; | | | | | | Panic disorder; | | | | | | Generalized anxiety | | | | | | disorder | +--------+---------+ + + + Social History [...] + + + | Blood Pressure | 122/58 | 09/26/2018 9:14 AM | | | | | PDT | | + + + + + | Pulse | 110 | 09/26/2018 9:14 AM | | | | | PDT | | + + + + + | Temperature | 37.1 C (98.7 F) | 09/26/2018 9:14 AM | | | | | PDT | | + + + + + | Respiratory Rate | 16 | 09/26/2018 9:14 AM | | | | | PDT | | + + + + + | Oxygen Saturation | 98% | 09/26/2018 9:14 AM | | | | | PDT | | + + + + + | Inhaled Oxygen | - | - | | | Concentration | | | | + + + + + | Weight | 54.1 kg (119 lb 4.3 | 09/26/2018 9:14 AM | | | | oz) | PDT | | + + + + + | Height | - | - | | + + + + + | Body Mass Index | 20.47 | 05/08/2018 6:41 PM | | | | | PST | | + + + + + documented in this encounter Progress Notes Pj Abdi MD - 09/26/2018 9:00 AM PDTFormatting of this note might be different fro m the original. Donna Camarena is a 23 y.o. female Chief Complaint: Depression; Anxiety; and Insomnia HPI Depression/Anxiety: Patient is here for follow-up of Depression and anxiety. Onset: ongoing She has the following depression symptoms: depressed mood, difficulty concentrating, fatigu e, feelings of worthlessness/guilt, hopelessness, hypersomnia, insomnia, psychomotor agitati on and weight loss She denies the following symptoms: anhedonia, impaired memory, psychomotor retardation, rec urrent thoughts of , suicidal attempt, suicidal thoughts with specific plan, suicidal t houghts without plan and weight gain She complains of the following anxiety symptoms: feeling nervous, anxious, not able to stop worrying, worrying too much, having trouble relaxing, being restless/hard to sit still, eas abdoulaye annoyed or irritable and feeling afraid something bad might happen Symptoms are worsening Sleep Disturbance: Yes trouble falling and staying asleep Are you currently in counseling: yes, Patient goes to [place] and sees Maria Luz mcgregor Treatments Tried: Patient stopped taking Hydroxyzine about 3 weeks ago. States that it was ineffective. Have they been effective: Yes PHQ9 SCORE Office Visit from 09/26/2018 in [facility] Office Visit from 2016 in [facility] Office Visit from 12/07/2016 in [facility] Office Visit from 11/30/2016 in [facility] PHQ-9 Total Score (Patient Health Questionnaire) 16 6 16 7 ANXIETY/STRESS SCORE Office Visit from 09/26/2018 in [facility] Office Visit from 2016 in [facility] Office Visit from 12/07/2016 in [facility] Office Visit from 11/30/2016 in [facility] SULMA-7 Score (General Anxiety Disorder) 18 5 13 7 INSOMNIA Patient describes symptoms as frequent night time awakening and difficulty falling asleep. Patient has found no relief with Trazadone. Associated symptoms include: anxiety, depression, fatigue and stress. Patient denies daytime somnolence, frequent nighttime urination and snoring. Symptoms have gradually worsened Do you take any sleep aids/Medications? no Caffeine late in day: no Any regular exercise: everyday routine Right Arm About 2 months ago layed on her arm and felt like it went numb. Patient states that this guido ppens frequently. Numbness will travel down into her hand and she reports that it feels like "pins and needles" sensation in hand. Once arm goes numb this will last for about an hour. I asked patient what was going on with her socially and with her addiction. Patient report s that she has been clean for 7 months. She reports that she has been on Suboxone which she is receiving from [facility]. She reports that she is currently on 12 mg/d ay. Patient reports that she technically has full custody of her 8-year-old son Gilberto. He however currently lives in [facility] with a paternal aunt. Patient also has a 5-year-old s on named Jordy who currently is living with the paternal grandmother who also has full custod yEllis Thompson reports that she has left axles dad. She left him shortly after she got clean. That she then moved to [place] and ended up getting back together with Gilberto's father. However they then broke up a couple of weeks ago. She was previously living with her own gr andfather at [facility]. 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 Patient reports that she has a van that she is living at. Currently that van is parked at [facility]. Patient reports that she is in coun seling. She reports that her individual counseling occurs on Wed[place] [facility]. O n 's that she then also has family counseling. Patient reports that she has episodes where all of her joints will hurt. They will hurt fo r 24 to 48 hours. This will happen once or twice per week. Patient reports that intermitte ntly she will have right knee swelling that will last for up to a couple of days. Patient a lso reports that occasionally the left knee will swell but not as much as the right knee. P atient reports that the joints in her fingers often hurt as well. PREVENTIVE CARE/PRIOR VISITS - Any recommendations from [...] Comments) INEFFECTIVE Medications: Patient Reported Taking Dosage gabapentin (NEURONTIN) 300 mg capsule (Taking) TAKE TWO CAPSULES THREE TIMES A DAY Number of times this order has been changed since signin Order [facility] [place] naproxen (NAPROSYN) 500 mg tablet (Taking) TAKE ONE TABLET TWICE A DAY WITH BREAKFAST AND DINNER Number of times this order has been changed since signin [facility] [place] NARCAN 4 MG/0.1ML (Taking) ondansetron (ZOFRAN) 4 mg tablet (Taking) TAKE ONE TABLET EVERY 8 HOURS NEEDED FOR VILMA SEA Number of times this order has been changed since signin Order [facility] [place] ondansetron (ZOFRAN) 4 mg tablet (Taking/Discontinued) TAKE ONE TABLET EVERY 8 HOURS N EEDED FOR NAUSEA Number of times this order has been changed since signin [facility] [place] SUBOXONE 8-2 MG SL film (Taking) 12 [...] level: Not on file Occupational History 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 Negative for activity change. HENT: Negative for sinus pressure, sinus pain, sneezing and trouble swallowing. Eyes: Negative. Respiratory: Positive for wheezing. Negative for chest tightness and shortness of breath. Cardiovascular: Negative for chest pain and palpitations. Gastrointestinal: Positive for nausea. Negative for constipation, diarrhea and vomiting. Endocrine: Negative. Genitourinary: Negative for difficulty urinating and dysuria. Musculoskeletal: Negative. Skin: Negative. Allergic/Immunologic: Negative. Neurological: Positive for dizziness and light-headedness. Hematological: Negative. Psychiatric/Behavioral: Positive for sleep disturbance. Objective: Vitals: 09/26/18 0914 BP: 122/58 Pulse: 110 Resp: 16 Temp: 37.1 C (98.7 F) TempSrc: Temporal SpO2: 98% Weight: 54.1 kg (119 lb 4.3 oz) Body mass index is 20.47 kg/m. Physical Exam Constitutional: She is oriented to person, place, and time. She appears well-developed and well-nourished. No distress. Appropriately dressed and groomed HENT: Head: Normocephalic and atraumatic. Eyes: Conjunctivae are normal. Cardiovascular: Normal rate and regular rhythm. No murmur heard. Pulmonary/Chest: Effort normal and breath sounds normal. Musculoskeletal: She exhibits no edema. Patient does have prominent not be joints on her fingers but no active synovitis redness or warmth. Both knees show a small amount of effusion. The left knee has pain over the anter ior patellar tendon. Neurological: She is alert and oriented to [...] UA, POC Negative Negative, 100 mg/dL Specific [place], UA, POC 1.015 1.001 - 1.030 Blood, UA, POC Moderate (A) Negative pH, UA, POC 5.5 5.0, 6.0, 7.0, 8.0, 5.5, 6.5, 7.5 Protein, UA, POC Negative Negative Urobilinogen, UA, POC Negative 0.2, Negative, Normal, < 0.2 mg/dL, 1 mg/dL, < 0.2 E.U./dl, 1.0 E.U./dL, 0.2 mg/dL Nitrite, UA, POC Negative Negative Leukocyte Esterase, UA, POC Negative Negative Reducing Substances, Urine Ictotest Negative Remark Assessment: 1. Acute pain of left knee XR Knee Left 1 - 2 Vw 2. PONV (postoperative nausea and vomiting) ondansetron (ZOFRAN) 4 mg tablet 3. Abdominal pain, unspecified abdominal location CBC with Differential Comprehensive Metabolic Panel Tissue Transglutaminase (IgA + IgG) 4. Arthralgia, unspecified joint RHONDA Qual, EIA, Reflex C-Reactive Protein Rheumatoid Factor, Quant Sedimentation rate, automated Smooth Muscle Ab CCP Antibodies, IgG IgA 5. Exposure to STD HIV AG/AB, 4th Gen, Reflex Hepatitis C Ab 6. Insomnia, unspecified type 7. Panic disorder 8. Generalized anxiety disorder Plans: 1. Acute pain of left knee I will get an x-ray of her left knee to look for bone spurs or bony abnormalities. I have shown her a stretching exercise for the thighs and hamstrings to help reduce her knee pain. - XR Knee Left 1 - 2 Vw; Future 2. PONV (postoperative nausea and vomiting) Refill given. - ondansetron (ZOFRAN) 4 mg tablet; TAKE ONE TABLET EVERY 8 HOURS NEEDED FOR NAUSEA Dis pense: 45 tablet; Refill: 3 3. Abdominal pain, unspecified abdominal location Etiology is unclear. Constipation could be a part of this. Significant psychiatric issues can also cause abdominal pain. We will ensure that we rule out any gluten intolerance. - CBC with Differential; Future - Comprehensive Metabolic Panel; Future - Tissue Transglutaminase (IgA + IgG); Future 4. Arthralgia, unspecified joint Patient has had a pretty rough life and it would not be surprising if she has early arthrit is. Patient probably also qualifies for fibromyalgia. With the intermittent joint pain dlyon t is occurring throughout her body and occasional swelling of the knees I feel that it is im portant that we complete rheumatological laboratories. She will get these drawn today. - RHONDA Qual, EIA, Reflex; Future - C-Reactive Protein; Future - Rheumatoid Factor, Quant; Future - Sedimentation rate, automated; Future - Smooth Muscle Ab; Future - CCP Antibodies, IgG IgA; Future 5. Exposure to STD Patient has not had testing completed for HIV or hepatitis since she has been clean. We wi ll complete those today. - HIV AG/AB, 4th Gen, Reflex; Future - Hepatitis C Ab; Future 6. Insomnia, unspecified type 7. Panic disorder 8. Generalized anxiety disorder Patient has failed trazodone to help with sleep and has tried nortriptyline in the past. H ydroxyzine for her anxiety was not helpful. Patient is currently on Suboxone which does hav e interactions with multiple medications. At this time am going to ask her pharmacist if sh e can weigh in on possible therapies to help with both her insomnia as well as her panic dis order and generalized anxiety disorder. Patient request to stay away from a benzodiazepine nor would it be appropriate to use those while she is on Suboxone as well as with her histor y of drug use. I, Karin Hodge, Label Stamper, am acting as a scribe on behalf of, and in the pre sence of Pj Abdi MD. Electronically signed by: Karin Hodge, Label Stamper 09/26/18 9:09 I, Dr. Pj Abdi, personally performed the services described in this documentation, as scribed in my presence and it is both accurate and complete. jP Abdi MD 09/26/18 documented in this e ncounter Plan of Treatment + + +--------+ + + | Name | Type | Priori | Associated Diagnoses | Order Schedule | | | | ty | | | + + +--------+ + + | * [facility] | Outpatient | Routin | Insomnia, | Ordered: 09/26/2018 | | Consult - AMB | Referral | e | unspecified type | | | Referral | | | Panic disorder | | | | | | Generalized anxiety | | | | | | disorder | | + + +--------+ + + documented as of this encounter Results XR Knee Left 1 [...] | | | + +---------+ + + Hepatitis C Ab (09/26/2018 10:31 AM PDT) + + + + + + | Component | Value | Ref Range | Performed | Pathologist | | | | | At | Signature | + + + + + + | Hepatitis C | <0.1Comment: | 0.0 - 0.9 s/co | REFERENCE | | | Ab | | ratio | LAB [facility] | | | | | | - [facility] | | | | Negative: < 0.8 | | | | | | | | | | | | | | | | | | Indeterminate: 0.8 - 0.9 | | | | | | | | | | | | | | | | | | Positive: > 0.9 | | | | | | The [facility] recommends that | | | | | | a positive HCV antibody | | | | | | result be followed up | | | | | | with a HCV Nucleic Acid | | | | | | Amplification test | | | | | | ([id number]). | | | | + + + + + + + + | Specimen | + + | Blood | + + + + + | Narrative | Performed At | + + + | Performed at: - [place] [address], | REFERENCE LAB | | [place], [place] [id number] Computator: Suhail Price MD, Phone: | [facility] | | [phone] | | + + + + + + + + | Performing | Address | City/State/Zipcode | Phone Number | | Organization | | | | + + + + + | REFERENCE LAB | [address] | [place], [place] | [phone] | | [facility] | [facility] | [address] | | + + + + + HIV AG/AB, 4th Gen, Reflex (09/26/2018 10:31 AM PDT) + + + + + + | Component | Value | Ref Range | Performed | Pathologist | | | | | At | Signature | + + + + + + | HIV 1/2 Ab | Non Reactive | Non Reactive | REFERENCE | | | and P24 Ag | | | LAB [facility] | | | | | | - [facility] | | + + + + + + + + | Specimen | + + | Blood | + + + + + | Narrative | Performed At | + + + | Performed at: - [facility] [address], | REFERENCE LAB | | [place], [place] [id number] Computator: Suhail Price MD, Phone: | [facility] [place] | | [phone] | | + + + + + + + + | Performing | Address | City/State/Zipcode | Phone Number | | Organization | | | | + + + + + | REFERENCE LAB | [address] | [place], [place] | [phone] | | [facility] | [address] [facility] | [address] | | + + + + + CCP Antibodies, IgG IgA (09/26/2018 10:31 AM PDT) + + + + + + | Component | Value | Ref Range | Performed | Pathologist | | | | | At | Signature | + + + + + + | Cyclic | 4Comment: | 0 - 19 units | REFERENCE | | | Citrullin | | | LAB [facility] | | | Peptide Ab | Negative | | - [facility] | | | | <20 | | | | | | | | | | | | Weak positive | | | | | | 20 - 39 | | | | | | | | | | | | Moderate positive 40 | | | | | | - 59 | | | | | | | | | | | | Strong positive | | | | | | >59 | | | | + + + + + + + + | Specimen | + + | Blood | + + + + + | Narrative | Performed At | + + + | Performed at: 01 - [facility] [address], | REFERENCE LAB | | [place] [id number] Computator: Joy Sorto MD, Phone: | [place] [place] | | [phone] | | + + + + + + + + | Performing | Address | City/State/Zipcode | Phone Number | | Organization | | | | + + + + + | REFERENCE LAB | [address] | [place], [place] | [phone] | | [facility] | [place] | [address] | | + + + + + Smooth Muscle Ab (09/26/2018 10:31 AM PDT) + + + + + + | Component | Value | Ref Range | Performed | Pathologist | | | | | At | Signature | + + + + + + | Smooth | 5Comment: | 0 - 19 Units | REFERENCE | | | Muscle Ab | Negative | | LAB [facility] | | | | | | - [facility] | | | | 0 - 19 | | | | | | Weak positive | | | | | | 20 | | | | | | - 30 | | | | | | Moderate to strong | | | | | | positive >30 | | | | | | Actin Antibodies are | | | | | | found in 52-85% of | | | | | | patients with autoimmune | | | | | | hepatitis or chronic | | | | | | active hepatitis and in | | | | | | 22% of patients with | | | | | | primary biliary | | | | | | cirrhosis. | | | | + + + + + + + + | Specimen | + + | Blood | + + + + + | Narrative | Performed At | + + + | Performed at: 01 - [facility] [address], | REFERENCE LAB | | [place] [id number] Computator: Joy Sorto MD, Phone: | [place] | | [phone] | | + + + + + + + + | Performing | Address | City/State/Zipcode | Phone Number | | Organization | | | | + + + + + | REFERENCE LAB | [address] | [place], [place] | [phone] | | [facility] | [place] | [address] | | + + + + + Tissue Transglutaminase (IgA + IgG) (09/26/2018 10:31 AM PDT) + + + + + + | Component | Value | Ref Range | Performed | Pathologist | | | | | At | Signature | + + + + + + | Tissue | <2Comment: | 0 - 3 U/mL | REFERENCE | | | Transglutam | | | LAB [facility] | | | inase IgA | Negative | | - [facility] | | | | 0 - 3 | | | | | | | | | | | | Weak Positive | | | | | | 4 - 10 | | | | | | | | | | | | Positive | | | | | | >10 Tissue | | | | | | Transglutaminase (tTG) | | | | | | has been identified as | | | | | | the endomysial antigen. | | | | | | Studies have demonstr- | | | | | | ated that endomysial | | | | | | IgA antibodies have over | | | | | | 99% specificity for | | | | | | gluten sensitive | | | | | | enteropathy. | | | | + + + + + + | Tissue | <2Comment: | 0 - 5 U/mL | REFERENCE | | | Transglutam | | | LAB [facility] | | | inase IgG | Negative | | - [facility] | | | | 0 - 5 | | | | | | | | | | | | Weak Positive | | | | | | 6 - 9 | | | | | | | | | | | | Positive | | | | | | >9 | | | | + + + + + + + + | Specimen | + + | Blood | + + + + + | Narrative | Performed At | + + + | Performed at: 01 - [facility] [address], | REFERENCE LAB | | [place] [id number] Computator: Jesse Salgado MD, Phone: | [facility] [place] | | [phone] | | + + + + + + + + | Performing | Address | City/State/Zipcode | Phone Number | | Organization | | | | + + + + + | REFERENCE LAB | [address] | [place], [place] | [phone] | | [facility] | [place] | [address] | | + + + + + Sedimentation rate, automated (09/26/2018 10:31 AM PDT) + +-------+ + + + | Component | Value | Ref Range | Performed | Pathologist | | | | | At | Signature | + +-------+ + + + | Erythrocyte | 11 | <20 mm/hr | [facility] | | | | | | [facility] | | | [facility] | | | [facility] | | | on Rate | | | [facility]ARK | | | | | | LABORATORY | | + +-------+ + + + + + | Specimen | + + | Blood | + + + + + + + | Performing | Address | City/State/Zipcode | Phone Number | | Organization | | | | + + + + + | [facility] | [address] | [place] | [phone] | | [facility] | | [address] | | | [facility] | | | | + + + + + Rheumatoid Factor, Quant (09/26/2018 10:31 AM PDT) + +-------+ + + + | Component | Value | Ref Range | Performed | Pathologist | | | | | At | Signature | + +-------+ + + + | RHEUMATOID | <10.0 | 0.0 - 13.9 | REFERENCE | | | FACTOR | | IU/mL | LAB [facility] | | | | | | - [facility] | | + +-------+ + + + + + | Specimen | + + | Blood | + + + + + | Narrative | Performed At | + + + | Performed at: 01 - [facility] [address], | REFERENCE LAB | | [place], [place] [id number] Computator: Suhail Price MD, Phone: | [facility] [place] | | [phone] | | + + + + + + + + | Performing | Address | City/State/Zipcode | Phone Number | | Organization | | | | + + + + + | REFERENCE LAB | [address] | [place], [place] | [phone] | | [facility] | [facility] | [address] | | + + + + + C-Reactive Protein (09/26/2018 10:31 AM PDT) + + + + + + | Component | Value | Ref Range | Performed | Pathologist | | | | | At | Signature | + + + + + + | C-Reactive | 10.4 (H) | 0.0 - 9.0 mg/L | [facility] | | | Protein | | | [facility] | | | [...] + + + | [facility] | [address] | [place] | [phone] | | [facility] | | [address] | | | [facility] [place] | | | | + + + + + RHONDA Qual, EIA, Reflex (09/26/2018 10:31 AM PDT) + + + + + + | Component | Value | Ref Range | Performed | Pathologist | | | | | At | Signature | + + + + + + | RHONDA Screen, | Negative | Negative | REFERENCE | | | Qual | | | LAB [facility] | | | | | | - [facility] | | + + + + + + + + | Specimen | + + | Blood | + + + + + | Narrative | Performed At | + + + | Performed at: 01 - [facility] [address], | REFERENCE LAB | | [place] [id number] Computator: Jesse Salgado MD, Phone: | [facility] | | [phone] | | + + + + + + + + | Performing | Address | City/State/Zipcode | Phone Number | | Organization | | | | + + + + + | REFERENCE LAB | [address] | [place] | [phone] | | [facility] | [address] | [address] | | + + + + + Comprehensive Metabolic Panel (09/26/2018 10:31 AM PDT) + + + + + + | Component | Value | Ref Range | Performed | Pathologist | | | | | At | Signature | + + + + + + | Na | 140 | 136 - 145 | [facility] | | | | | mmol/L | [facility] | | | | | | [facility] | | | | | | [facility] | | | | | | LABORATORY | | + + + + + + | K | 4.1 | 3.5 - 5.1 | [facility] | | | | | mmol/L | [facility] | | | | | | [facility] | | | | | | [facility] | | | | | | LABORATORY | | + + + + + + | Cl | 103 | 98 - 107 mmol/L | [facility] | | | | | | [facility] | | | | | | [facility] | | | | | | [facility] | | | | | | LABORATORY | | + + + + + + | CO2 | 28 | 21 - 32 mmol/L | [facility] | | | | | | [facility] | | | | | | [facility] | | | | | | [facility] | | | | | | LAB[facility]ATORY | | + + + + + + | Anion Gap | 9 | 2 - 16 mmol/L | [facility] | | | | | | [facility] | | | | | | [facility] | | | | | | [facility] | | | | | | LABORATORY | | + + + + + + | Glucose | 76 | 74 - 106 mg/dL | [facility] | | | | | | [facility] | | | | | | [facility] | | | | | | [facility] | | | | | | LABORATORY | | + + + + + + | BUN | 5 (L) | 7 - 18 mg/dL | [facility] | | | | | | [facility] | | | | | | [facility] | | | | | | [facility] | | | | | | LABORATORY | | + + + + + + | Creatinine | 0.74 | 0.55 - 1.02 | [facility] | | | | | mg/dL | [facility] | | | | | | [facility] | | | | | | [facility] | | | | | | LABORATORY | | + + + + + + | eGFR if not | >60Comment: GLOMERULAR | >=60 | [facility] | | | | FILTRATION | mL/min/1.73m2 | [facility] | | | [place] | RATE,ESTIMATED | | MEDICAL | | | | mL/min/[id number] than | | PARK | | | | 60 Chronic kidney [...] + + | Calcium | 8.9 | 8.5 - 10.1 | [facility] | | | | | mg/dL | [facility] | | | | | | [facility] | | | | | | [facility] | | | | | | LABORATORY | | + + + + + + | Albumin | 4.3 | 3.4 - 5.0 g/dL | [facility] | | | | | | [facility] | | | | | | [facility] | | | | | | [facility] | | | | | | LABORATORY | | + + + + + + | Bilirubin | 0.6 | 0.2 - 1.0 mg/dL | [facility] | | | Total | | | [facility] | | | | | | [facility] | | | | | | [facility] | | | | | | LABORATORY | | + + + + + + | Total | 7.2 | 6.4 - 8.2 g/dL | [facility] | | | Protein | | | [facility] | | | | | | [facility]ICAL | | | | | | [facility] | | | | | | LABORATORY | | + + + + + + | AST | 14 (L) | 15 - 37 U/L | [facility] | | [facility] | | [facility] | | + + + + + + | ALT | 15 | 14 - 59 U/L | [facility] | [facility] | | | | | [facility] | | + + + + + + | Alkaline | 88 | 46 - 116 U/L | [facility] | | | Phosphatase | | | [facility] | | [facility] | | [facility] | | | [facility] | | + + + + + + | Globulin | 2.9 | 2.1 - 3.8 g/dL | [facility] | | [facility] | | | [facility] | | + + + + + + | Albumin/Bianca | 1.5 | 0.8 - 2.0 | [facility] | | | bulin Ratio | | [facility] | | [facility] | | | | | | [facility] | | + + + + + + | BUN/Creatin | 6.8 | | [facility] | | | ine Ratio | | | [facility] | | | [...] + + + + + | [facility] | [address] | [place] | [phone] | | [facility] | | [address] | | | [facility] | | | | + + + + + CBC with Differential (09/26/2018 10:31 AM PDT) + + + + + + | Component | Value | Ref Range | Performed | Pathologist | | | | | At | Signature | + + + + + + | WBC | 9.8 | 4.0 - 11.0 K/uL | [facility] | [facility] | | | | | [facility] | | + + + + + + | RBC | 3.86 | 3.70 - 5.20 | [facility] | [...] + + + + | MCV | 93.8 | 83.0 - 101.0 fL | [facility] | | [facility] | | | | | [facility] | | + + + + + + | MCH | 30.8 | 28.0 - 35.0 pg | [facility] [...] + + + + | RDW-CV | 13.5 | <15.0 % | [facility] | | | [facility] | | | | | | [facility] | | + + + + + + | RDW-SD | 47.0 (H) | 35.1 - 46.3 fL | [facility] | | | [facility] | | | | | [facility] | | + + + + + + | Platelet | 446 (H) | 140 - 440 K/uL | [facility] | | | Count | | [facility] | | | [facility] | | | | | | [facility] | | + + + + + + | MPV | 9.4 | 6.5 - 12.4 fL | [facility] | | | | | | [facility] | | + + + + + + | % | 76.1 | 45.0 - 82.0 % | [facility] | | | Neutrophils | | | [facility] | [facility] | | [facility] | | | | | | [facility] | | + + + + + + | % | 18.7 (L) | 20.0 - 45.0 % | [facility] | | | Lymphocytes | | [facility] | | [facility] | | | | | | [facility] | | + + + + + + | % Monocytes | 2.7 (L) | 4.0 - 12.0 % | [...] + + + + | Absolute | 7.44 | 1.80 - 8.50 | [facility] | | | Neutrophils | | K/uL | [facility] | | | | | [facility] | | | | | | [facility] | | + + + + + + | Absolute | 1.83 | 0.60 - 3.20 | [facility] | | | Lymphocytes | | K/uL | [facility] | | | | | [facility] | | | | | | [facility] | | + + + + + + | Absolute | 0.26 | 0.00 - 1.00 | [facility] | | | Monocytes | | K/uL | [facility] | | | | | [facility] | | | | | | [facility] | | + + + + + + | Absolute | 0.22 | 0.00 - 0.40 | [facility] | | | Eosinophils | | K/uL | [facility] | | | | | | [facility] | | | | | | [facility]ATORY | | + + + + + + | Absolute | 0.02 | 0.00 - 0.10 | [facility] | [...] + + + + + | [facility] | [address] | [place] | [phone] | | [facility] | | [address] | | | [facility] | | | | + + + + + documented in this encounter Visit Diagnoses + + | Diagnosis | + + | Acute pain of left knee - Primary | + + | PONV (postoperative nausea and vomiting) Nausea with vomiting | + + | Abdominal pain, unspecified abdominal location | + + | Arthralgia, unspecified joint | + + | Exposure to STD Contact with or exposure to venereal diseases | + + | Insomnia, unspecified type | + + | Panic disorder Panic disorder without agoraphobia | + + | Generalized anxiety disorder | + + documented in this encounter
--- OUTSIDE RECORDS SUMMARY | ~2019-10-30 | XMS | Encounter Summary ---
Demographics + + + | Address | [address] | | | [place] [address] | + + + | Home Phone [...] | | | | | [place] [address] | | + + + + + | Ab Romykia | ECON | Unknown | | + + + + + Care Team Providers + +------+ + | Care Process Safety Engineering Technologist Name | Role | Phone | + [...] + + | 12/28/ | Emergency | [facility] | Mike Isabel | Pelvic pain (Primary | | 2018 | | MED CTR EM[facility]Y | Mukesh Ulloa MD | Dx) | | | | CENTER [address] | [address] | | | | | [place] | [place], [place] | | | | | [address] | [address] | | | | | [phone] | | | +--------+ + + + [...] K?MRN: | | | | | | [id number] | | | [id number] | | | his | | | [...] | | | ent/a9 | | | [id number] | | | [id number] | | | [...] 1.001 - 1.030 | | | | [place], | | | | | | UA, [...] | 1.010, 1.015, | | | | [place], | | 1.020, 1.025 | | | | POC | | | | | + + + + + + | Lot Number | [id number] | | | | + + + [...] at 0407, | | | Patient Address: [address] [place] [address], | | | [facility] [address], | | + +---+ | | | [...]
--- OUTSIDE RECORDS SUMMARY | ~2019-10-30 | XMS | Encounter Summary ---
Demographics + + + | Address | [address] | | | [place] [address] | + + + | Home Phone | | + + + | Preferred Language | Unknown | + + + | Marital Status | Single | + + + | Restoration Affiliation | 1013 | + + + [...] | | | | | [place] [address] | | + + + + + | Ab Romykia | ECON | Unknown | | + + + + + Care Team Providers + +------+ + | Care Principal Clerk Typist Name | Role | Phone | + [...] + + | 08/04/ | Emergency | [facility] | Eric Lozano, | Chronic right-sided | | 2017 - | | MED CTR EMER[facility] | MD [address] | low back pain with | | | | CENTER [address] | [place] | right-sided sciatica | | 08/05/ | | [place] | [id number] | (Primary Dx); | | 2016 | | [address] | | Lumbarization, | | | | [phone] | | vertebra; Protrusion | | | | | | of intervertebral | | | | | | disc of lumbosacral | | | | | | region | +--------+ + + + + Social [...] + + + | Blood Pressure | - | - | | + + + + + | Pulse | 88 | 08/04/2016 10:55 PM | | | | | PDT | | + + + + + | Temperature | 37 C (98.6 F) | 08/04/2016 10:55 PM | | | | | PDT | | + + + + + | Respiratory Rate | 18 | 08/04/2016 10:55 PM | | | | | PDT | | + + + + + | Oxygen Saturation | 100% | 08/04/2016 10:55 PM | | | | | PDT | | + + + + + | Inhaled Oxygen | - | - | | | Concentration | | | | + + + + + | Weight | 54.4 kg (120 lb) | 08/04/2016 10:55 PM | | | | | PDT | | + + + + + | Height | 162.6 cm (5' 4") | 08/04/2016 10:55 PM | | | | | PDT | | + + + + + | Body Mass Index | 20.6 | 08/04/2016 10:55 PM | | | | | PDT | | + + + + + documented in this encounter Discharge Instructions AttachmentsThe following attachments cannot be sent through Care Everywhere.LUMBAR RADICULO GERARDO GARCIA ([place])documented in this encounter Medications at Time of [...] INFORMATION | CELSO | Routin | | 08/04/2016 10:03 PM | | EXCHANGE | | e | | PDT | + +------+--------+ + + documented as of this encounter Procedures + +--------+ + + + | Procedure Name | Priori | Date/Time | Associated Diagnosis | Comments | | | ty | | | | + +--------+ + + + | MRI LUMBAR SPINE WO | STAT | 08/05/2016 | | Results for this | | CONTRAST | | 2:22 AM | | procedure are in the | | | | PDT | | results section. | + +--------+ + + + | ED INFORMATION | Routin | 08/04/2016 | | | | EXCHANGE | e | 10:03 PM | | | | | | PDT | | | + +--------+ + + + documented in this encounter Results MRI Lumbar Spine wo Contrast (08/05/2016 2:22 AM PDT) + + | Specimen | + + | | + + + + + | Narrative | Performed At | + + + | MRI LUMBAR SPINE WITHOUT CONTRAST CLINICAL INFORMATION: Low | [facility] | | back pain for two months. COMPARISON: Lumbar radiographs 05/28/2016 | | | PROCEDURE: Sagittal T2, axial T2, sagittal T1, axial T1, | | | sagittal STIR sequences. FINDINGS: Six nfc-ori-[id number] vertebra | | | with right L6-S1 assimilation joint. Vertebral body height and | | | alignment is intact. There is disc desiccation and mild height loss | | | at L5-L6. Loss of disc space height and signal intensity at L5-L6 | | | with posterior disc bulging on the sagittal images. S2 level | | | Tarlov cyst. Conus medullaris lies at the L1-L2 level. No | | | evidence of Conal compression of cauda equina syndrome. | | | Unremarkable osseous signal intensity with no evidence of fracture, | | | metastatic disease, or acute endplate change. IMPRESSION- | | | Broad-based right central L5-L6 disc protrusion mildly effacing the | | | thecal sac extending 4.5 mm beyond the posterior disc margin and | | | measuring 17 mm in width. There is no discrete mass effect on the | | | proximal right L6 nerve root sleeves. No evidence of significant | | | central stenosis or neural foraminal stenosis. A preliminary | | | report was sent by [facility] with no significant discrepancy. | | | Dictated and Signed by: Everton May MD Electronically | | | signed: 08/05/2016 10:51 AM | | + + + + + | Procedure Note | + + | Honorio, Rad Results In - 08/05/2016 10:54 AM PDT MRI LUMBAR SPINE WITHOUT CONTRAST | | | | CLINICAL INFORMATION: | | Low back pain for two months. | | | | COMPARISON: | | Lumbar radiographs 05/28/2016 | | | | PROCEDURE: | | Sagittal T2, axial T2, sagittal T1, axial T1, sagittal STIR sequences. | | | | FINDINGS: | | Six pxd-qnr-ynnzocu vertebra with right L6-S1 assimilation joint. Vertebral body | | height and alignment is intact. There is disc desiccation and mild height loss | | at L5-L6. | | | | Loss of disc space height and signal intensity at L5-L6 with posterior | | disc bulging on the sagittal images. | | | | S2 level Tarlov cyst. | | | | Conus medullaris lies at the L1-L2 level. No evidence of Conal | | compression of cauda equina syndrome. | | | | Unremarkable osseous signal intensity with no evidence of fracture, | | metastatic disease, or acute endplate change. | | | | IMPRESSION- | | | | | | Broad-based right central L5-L6 disc protrusion mildly effacing the thecal sac | | extending 4.5 mm beyond the posterior disc margin and measuring 17 mm in width. | | There is no discrete mass effect on the proximal right L6 nerve root sleeves. | | No evidence of significant central stenosis or neural foraminal stenosis. | | | | | | A preliminary report was sent by [facility] with no significant | | discrepancy. | | | | Dictated and Signed by: Everton May MD | | Electronically signed: 08/05/2016 10:51 AM | + + + +---------+ + [...] sciatica - Primary | + + | Lumbarization, vertebra Congenital fusion of spine (vertebra) | + + | Protrusion of intervertebral disc of lumbosacral region | + + documented in this encounter Administered Medications + + + + +------+------+ | Medication Order | MAR | Action | Dose | Rate | Site | | | Action | Date | | | | + + + + +------+------+ | HYDROcodone-acetaminophen | Dispense | 08/06/19 | 1 tablet | | | | (NORCO) 5-325 mg per tablet (ER | to Home | 17 3:58 | | | | | Prepack) 1-2 tablet 1-2 tablet, | | AM PDT | | | | | Oral, ONCE, [facility] 08/05/16 at 0335, | | | | | | | For 1 dose, 1 tablet(s) every 6 | | | | | | | hours prn pain Dispense for home | | | | | | | use., | | | | | | + + + + +------+------+ +---+---+ | | | +---+---+ + +-------+ +------+---+---+ | HYDROmorphone (DILAUDID) 1 | Given | 08/06/19 | 1 mg | | | | mg/mL injection 1 mg 1 mg, | | 17 3:49 | | | | | Intravenous, EVERY 15 MIN PRN, | | AM PDT | | | | | Severe Pain, Starting 08/04/16 | | | | | | | at 2329, For 3 doses | | | | | | + +-------+ +------+---+---+ +-------+ +------+---+---+ | Given | 08/06/19 | 1 mg | | | | | 17 12:15 | | | | | | AM PDT | | | | +-------+ +------+---+---+ +---+---+ | | | +---+---+ + +-------+ +------+---+---+ | HYDROmorphone (DILAUDID) 2 | Given | 08/06/19 | 1 mg | | | | mg/mL injection Starting Joanie | | 17 2:42 | | | | | 08/05/16 at 0046, For 1 dose, | | AM PDT | | | | | TAMMY VALVERDE: dmitry magalalnes, | | | | | | | | | | | | | + +-------+ +------+---+---+ +---+---+ | | | +---+---+ + +-------+ +------+---+---+ | LORazepam (ATIVAN) injection 1 | Given | 08/06/19 | 1 mg | | | | mg 1 mg, Intravenous, ONCE, Joanie | | 17 1:21 | | | | | 08/05/16 at 0120, For 1 dose | | AM PDT | | | | + +-------+ +------+---+---+ +---+---+ | | | +---+---+ + +-------+ +------+---+---+ | LORazepam (ATIVAN) injection 1 | Given | 03/16/20 | 1 mg | | | | mg 1 mg, Intravenous, ONCE, Joanie | | 17 1:47 | | | | | 08/05/16 at 0145, For 1 dose | | AM PDT | | | | + +-------+ +------+---+---+ +---+---+ | | | +---+---+ + + + +------+---+---+ | ondansetron (ZOFRAN ODT) | Dispense | 08/06/19 | 4 mg | | | | disintegrating tablet (ED | to Home | 17 3:58 | | | | | homepack) 4 mg 4 mg, Oral, ONCE, | | AM PDT | | | | | Joanie 08/05/16 at 0335, For 1 dose, | | | | | | | Dissolve on tongue or swallow 1 | | | | | | | or 2 tablets every 8 hours prn | | | | | | | nausea or vomiting Dispense for | | | | | | | home use., | | | | | | + + + +------+---+---+ +---+---+ | | | +---+---+ documented in this encounter
--- OUTSIDE RECORDS SUMMARY | ~2019-10-30 | XMS | Encounter Summary ---
Demographics + + + | Address | [address] | | | [place] [address] | + + + | Home Phone | | + + + | Preferred Language | Unknown | + + + | Marital Status | Single | + + + | Restorationist Affiliation | 1013 | + + + | Race | Unknown | + + + | Ethnic Group | Unknown | + + + Author + + + | Author | Located Within [facility] | | | and [place] | + + + | Organization | Located Within [facility] | | | and [place] | + + + | Address | Unknown | + + + | Phone | Unavailable | + + + Support + + + + + | Name | Relationship | Address | Phone | + + + + + | Isma Hogan | ECON | [address] | | | | | [place] [address] | | + + + + + | Ab Romykia | ECON | Unknown | | + + + + + Care Team Providers + +------+ + | Care Block Captain Name | Role | Phone | [...] + + | 05/08/ | Office | [facility] | Pj Abdi, | Behavior disturbance | | 2019 | Visit | [facility] [place] | [address] | (Primary Dx); | | | | [address] | [place], [place] | Moderate episode of | | | | [place], [place] | [address] | recurrent major | | | | [address] | | depressive disorder | | | | [phone] | | ([facility]); Generalized | | | | | | anxiety disorder; | | | | | | Borderline | | | | | | personality disorder | | | | | | ([facility]); Neck pain; | | | [...] has been changed since signin Order [facility] [place] gabapentin (NEURONTIN) 300 mg capsule (Taking) TAKE TWO CAPSULES THREE TIMES A DAY Number of times this order has been changed since signin Order [facility] [place] ibuprofen (ADVIL, MOTRIN) 200 mg tablet (Taking) Take 400 mg by mouth every 6 hours as nee ded for Pain. mirtazapine (REMERON) 7.5 MG tablet (Taking) TAKE 1 TABLET BY MOUTH NIGHTLY. Number of times this order has been changed since signin Order [facility] [place] Multiple Vitamins-Minerals (ONE DAILY WOMENS 50 PLUS PO) (Taking) Take by mouth. 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
--- OUTSIDE RECORDS SUMMARY | ~2019-10-30 | XMS | Encounter Summary ---
Demographics + + + | Address | [address] | | | [place] [address] | + + + | Home Phone [...] | | | | | [place] [address] | | + + + + + | Ab Romykia | ECON | Unknown | | + + + + + Care Team Providers + +------+ + | Care Technical Support Intern Name | Role | Phone | + [...] + | 01/26/ | Refill | [facility] | Pj Abdi, | Medication Refill | | 2016 | | [facility] [place] | [address] | | | | | [address] | [place] | | | | | [place] | [address] | | | | | [address] | | | | | | [phone] | | | +--------+--------+ + + + [...]
--- OUTSIDE RECORDS SUMMARY | ~2019-10-30 | XMS | Encounter Summary ---
Demographics + + + | Address | [address] | | | [place] [address] | + + + | Home Phone [...] | | | | | [place] [address] | | + + + + + | Ab Romykia | ECON | Unknown | | + + + + + Care Team Providers + +------+ + | Care Medical Records Specialist Name | Role | Phone | [...] Description | +--------+--------+ + + + | 03/10/ | Refill | [facility] | Pj Abdi, | Medication Refill | | 2016 | | [facility] [place] | [address] | | | | | [address] | [place] | | | | | [place] | [address] | | | | | [address] | | | | | | [phone] | | | +--------+--------+ + + + [...]
--- OUTSIDE RECORDS SUMMARY | ~2019-10-30 | XMS | Encounter Summary ---
Demographics + + + | Address | [address] | | | [place] [address] | + + + | Home Phone | | + + + | Preferred Language | Unknown | + + + | Marital Status | Single | + + + | Congregational Affiliation | 1013 | + + + | Race | Unknown | + + + | Ethnic Group | Unknown | + + + Author + + + | Author | [facility] | | | and [place] | + + + | Organization | [facility] | [...] | | | | | [place] [address] | | + + + + + | Ab Bunch | ECON | Unknown | | + + + + + Care Team Providers + +------+ + | Care Wood Finisher Apprentice Name | Role | Phone | [...] + + + + | 03/11/ | [facility] | [facility] | Nikko Sánchez | | | 2016 | Encounter | MED CTR OR INTRA OP | DO Fernando [address] | | | | [address] | [address] [place] | | | | | [place] | [place], [place] [address] | | | | | [address] | [phone] | | | | | [phone] | | | +--------+ + + + [...] or shortness of breath Dizziness or fainting [phone] [employer]. [address] [place] [address], [place] [address]. All [facility] ts reserved. This information is not [...] fallopian tube left. How to say it [id number]-[id number] Why unilateral salpingo-oophorectomy is done This procedure [...] of unilateral salpingo-oophorectomy Stomach cancer Bleeding Infection [phone] [employer]. [address] [place] [address]. All righ ts reserved. This information is [...] | 1.010, 1.015, | | | | [place], | | 1.020, 1.025 | | | [...] Clinical correlation | | | is needed. TJB:[facility]:C2NR GROSS DESCRIPTION: The specimen is | | [...] excrescences or mass-like lesions within the cyst. Casino Manager | | | sections of ovary and fallopian tube are submitted in cassettes | | | (A1-A2). CLR:[facility] MICROSCOPIC EXAMINATION: Histologic sections of | | | all submitted blocks are examined by light microscopy. These | | | findings, together with the gross examination, support the pathologic | | | diagnosis. PERFORMING LABORATORY: Tissue processing and slide | | | preparation were performed by [facility] [employer], [address] [place] [address], | | | [address], [place] [address] (Upper Tier: Rafa Wing | | | Kb; CLIA#: [id number]). Professional interpretation was performed | | | by [employer], [address] [place] [address], [address], [place], [place] | | | [address] (Upper Tier: Rafa Wing M.D.; CLIA#: [id number]). | | | Diagnostician: Johs Garcia MD Pathologist Electronically | | | Signed 03/12/2016 | | + + + + +---------+ + + | Performing | Address | City/State/[facility] | Phone Number | [...]
--- OUTSIDE RECORDS SUMMARY | ~2019-10-30 | XMS | Encounter Summary ---
Demographics + + + | Address | [address] | | | [place] [address] | + + + | Home Phone [...] | | | | | [place] [address] | | + + + + + | Ab Bunch | ECON | Unknown | | + + + + + Care Team Providers + +------+ + | Care Agri Business Agent Name | Role | Phone | + +------+ + | Mike Fernández MD | PCP | | + +------+ + Encounter Details +--------+ + + + + | Date | Type | Department | Care Team | Description | +--------+ + + + + | 12/27/ | Hospital | [facility] | Precious Parekh | | | 2012 | Encounter | MED CTR EMERGENCY | MD Rebecca [address] | | | | | CENTER [address] | [place], | | | | | [place], [place] | [place] [address] | | | | | [address] | [phone] | | | | | [phone] | | | | | | | Rajiv Vieyra, | | | | | | [address] | | | | | | [facility] | | | | | | [place] [address] | | | | | | [phone] | | | | | | | [...] [address] | [place] | [phone] | | [facility] | | [address] | | | - LABORATORY | | | | + + + + + | [facility] | [address] | [place] | | | [facility] | | [address], [facility] | | | [...] (L) | 7 - 18 mg/dL | PROVIDEDEE | | | | | | ST. [...] | >60Comment: For | >60 mL/min/A | [facility] | | | GFR | -Americans, | [...] + | [facility] | [address] | [place] | [phone] | | [facility] | | [address] | | | - LABORATORY | | | | + + + + + | [facility] | [address] | [place], [place] | | | [facility] | | [address] | | | - LABORATORY [...] [address] | [place] | [phone] | | [facility] | | [address] | | | - LABORATORY | | | | + + + + + | [facility] | [address] | [place] | | | [facility] | | [address] | | | - LABORATORY | | | | + + + + + documented in this encounter Visit Diagnoses Not on filedocumented in this encounter"
--- OUTSIDE RECORDS SUMMARY | ~2019-10-30 | XMS | Encounter Summary ---
Demographics + + + | Address | [address] | | | [place] [address] | + + + | Home Phone [...] | | | | | [place] [address] | | + + + + + | Ab Romykia | ECON | Unknown | | + + + + + Care Team Providers + +------+ + | Care Set Making Machine Operator Name | Role | Phone | + +------+ + PCP | Unavailable | + +------+ + Encounter Details +--------+ + + + + | Date | Type | Department | Care Team | Description | +--------+ + + + + | 01/18/ | Hospital | [facility] | Mukesh Coppola | | | 2011 | Encounter | MED CTR EMERGENCY | MD Fernando [address] | | | | | CENTER [address] | [address] [place] | | | | | [place], [place] | [place] [address] | | | | | [address] | [phone] | | | | | [phone] | | | +--------+ + + + [...] Performed At | + + + | [facility] Diagnostic Imaging Department | [facility] | | [address] [facility] | [facility] | | TRANSABDOMINAL AND TRANSVAGINAL | [...] | communicated to Dr. Coppola by the principal quality engineer performing the st udy | | | on 01/19/2012. Dictated Date/Time: 01/19/2012 07:07 | | | Transcribed Date/Time: 01/19/2012 07:15 Credit Control Clerk: | | | <Electronically Signed by Brad Cline MD> 01/19/12 0952 | | + + + + + | Procedure Note | + + | Brown Olmedo Conversion - 06/29/2013 5:56 PM [facility] | | Diagnostic Imaging Department [address] [facility] | | TRANSABDOMINAL AND TRANSVAGINAL PELVIC ULTRASOUND, [...] to Dr. Coppola by the | | principal quality engineer performing the study on 01/19/2012. Dictated Date/Time: [...] were communicated to Dr. Coppola by the principal quality engineer sae rodrigez the | |luz maria on 01/19/2012. | | | |Dictated Date/Time: 01/19/2012 07:07 | |Transcribed Date/Time: 01/19/2012 07:15 | |Credit Control Clerk: | |<Electronically Signed by Brad Cline MD> [...]
--- OUTSIDE RECORDS SUMMARY | ~2019-10-30 | XMS | Encounter Summary ---
Demographics + + + | Address | [address] | | | [place] [address] | + + + | Home Phone [...] + + + | Author | [facility] | | | and Johnana | + + + | Organization | [facility] | | | [...] | | | | | [place] [address] | | + + + + + | Ab Romykia | ECON | Unknown | | + + + + + Care Team Providers + +------+ + | Care Leather Cleaner Name | Role | Phone | [...] + + | 12/23/ | Emergency | [facility] | Jimy aDvis MD | Generalized | | 2016 | | MED CTR EMERGENCY | [address] | abdominal pain | | | | CENTER [address] | [place] | (Primary Dx) | | | | [place] | [address] | | | | | [address] | | | | | | [phone] | | | +--------+ + + + [...] 1.001 - 1.030 | | | | [place], | | | | | | [facility], [...] [address] | [place] | [phone] | | [facility] | | [address] | | | - LABORATORY | | [...] ST. | [address] | [place], [place] | [phone] | | [facility] | | [address] | | | - LABORATORY | | [...] on | | | 12/24/2015 by the plasterer tender following completion of the study. | | [...] 10:20 PM | | on12/24/2015 by the plasterer tender following completion of the study.Dictated and Signed [...] 10:20 PM on | |12/24/2015 by the plasterer tender following completion of the study. | | [...] + | [facility] | [address] | [place] | [phone] | | [facility] | | [address] | | | - LABORATORY | | [...] mL/min/1.73m2 | [facility] | | | [place] | RATE,ESTIMATED | | MEDICAL | | | | mL/min/1.34n9Licm than | | CENTER - | | [...] + | [facility] | [address] | [place] | [phone] | | [facility] | | [address] | | | - LABORATORY | | [...] | | | | | | [facility] | | | | | | [...] [address] | [place] | [phone] | | [facility] | | [address] | | | - LABORATORY | | [...]
--- OUTSIDE RECORDS SUMMARY | ~2019-10-30 | XMS | Encounter Summary ---
Demographics + + + | Address | [address] | | | [place] [address] | + + + | Home Phone [...] + + + | Author | [facility] | | | and Johnana | + + + | Organization | [facility] | | | [...] | | | | | [place] [address] | | + + + + + | Ab Romykia | ECON | Unknown | | + + + + + Care Team Providers + +------+ + | Care Freelance Director Name | Role | Phone | [...] Description | +--------+--------+ + + + | 02/12/ | Refill | [facility] | Pj Abdi, | Medication Refill | | 2016 | | [facility]IC[facility] [place] | [address] | | | | | [address] | [place] | | | | | [place] | [address] | | | | | [address] | | | | | | [phone] | | | +--------+--------+ + + + [...]
--- OUTSIDE RECORDS SUMMARY | ~2019-10-30 | XMS | Encounter Summary ---
Demographics + + + | Address | [address] | | | [place] [address] | + + + | Home Phone | | + + + | Preferred Language | Unknown | + + + | Marital Status | Single | + + + | Baptist Affiliation | 1013 | + + + | Race | Unknown | + + + | Ethnic Group | Unknown | + + + Author + + + | Author | [facility] | | | and Johnana | + + + | Organization | [facility] | | [...] | | | | | [place] [address] | | + + + + + | Ab Romykia | ECON | Unknown | | + + + + + Care Team Providers + +------+ + | Care Senior Information Security Analyst Name | Role | Phone | [...] + | 07/09/ | Telephone | [facility] | Ed Wood | Other | | 2020 | | SURGERY [address] | MD [address] | | | | | [place], [place] | [facility] | | | | | [address] | [place] [address] | | | | | [phone] | [phone] | | | | | | | [...]
--- OUTSIDE RECORDS SUMMARY | ~2019-10-30 | XMS | Encounter Summary ---
Demographics + + + | Address | [address] | | | [place] [address] | + + + | Home Phone [...] | | | | | [place] [address] | | + + + + + | Ab Romykia | ECON | Unknown | | + + + + + Care Team Providers + +------+ + | Care Trial Court Justice Name | Role | Phone | + [...] + + | 08/04/ | Emergency | [facility] | Jesse Newman, | Pelvic pain in | | 2016 | | MED CTR EMERGENCY | [place] [address] | female (Primary Dx); | | | | CENTER [address] | [place], [place] | Left ovarian cyst | | | | [place], [place] | [id number] | | | | | [address] | | | | | | [phone] | | | +--------+ + + + [...] be sent through Care Everywhere.ABDOMINAL PAIN, ADULT (GREENLANDIC)documented in this encounter Medications at Time of [...] | 1.010, 1.015, | | | | [place], | | 1.020, 1.025 | | | [...] conveyed to the ordering provider, by the magneto electrician, | | | immediately following the exam. [...] to the ordering provider, by the | |magneto electrician, immediately following the exam. | | | [...] - 1.030 | [facility] | | | [place], | | | [facility] | | [...] ST. | [address] | [place] | [phone] | | [facility] | | [address] | | | - LABORATORY | | [...] + | [facility] | [address] | [place] | [phone] | | [facility] | | [address] | | | - LABORATORY | | [...] + | [facility] | [address] | [place] | [phone] | | [facility] | | [address] | | | - LABORATORY | | [...] mL/min/1.73m2 | [facility] | | | [place] | RATE,ESTIMATED | | MEDICAL | | | | mL/min/1.80d4Ngbb than | | CENTER - | | [...] [address] | [place] | [phone] | | [facility] | | [address] | | | - LABORATORY | | [...] [address] | [place] | [phone] | | [facility] | | [address] | | | - LABORATORY | | [...]
--- OUTSIDE RECORDS SUMMARY | ~2019-10-30 | XMS | Encounter Summary ---
Demographics + + + | Address | [address] | | | [place] [address] | + + + | Home Phone | | + + + | Preferred Language | Unknown | + + + | Marital Status | Single | + + + | Synagogue Affiliation | 1013 | + + + [...] | | | | | [place] [address] | | + + + + + | bA Bunch | ECON | Unknown | | + + + + + Care Team Providers + +------+ + | Care Straw Hat Washer Operator Name | Role | Phone | [...] | right-sided | Fadi Odonnell MD | [place] | | | | n | low back | [address] | [place], | | | | | pain with | [place] | [place] [address] | | | | | right-sided | [place] | Phone: | | | | | sciatica | [address] | [phone] | | | | | DDD | Phone: | Fax: | | | | | (degenerativ | [phone] | [phone] | | | | | e disc | Fax: | | | | | | disease), | [phone] | | | | | | lumbar [...] LUIS | | | | n | [place] OFFICE | | [facility] | | | | | CONSULTATION | | [place] | | | | | NEW/ESTAB | | [address] Phone: | | | | | PATIENT 60 | | [phone] | | | | | [place] | | Fax: | | | | | OFFICE | | [phone] | | | | | CONSULTATION | [...] + + | 09/21/ | Office | [facility] | Fadi Dejesus | Chronic right-sided | | 2017 | Visit | PHYSIATRY [address] | T, [address] | low back pain with | | | | [address] | [place], [place] | right-sided sciatica | | | | [place], [place] | [address] | (Primary Dx); DDD | | | | [address] | | (degenerative disc | | | | [phone] | | disease), lumbar; | | | [...] of the procedure you must provide a tour bus driver to take you home. For all procedur es it is recommended that someone else drive you home. documented in this encounter Progress Notes Fadi Dejesus MD - 09/21/2016 8:04 AM PDT Fadi Dejesus MD [address] [facility], [address] [place], [place] [id number] FAX: PHYSICAL MEDICINE AND REHABILITATION H&P CHIEF COMPLAINT: Chief Complaint Patient presents with Back Pain Right sided low back pain that radiates into the right leg Numbness right leg numbness/weakness HISTORY OF PRESENT ILLNESS: The patient is a 21 y.o. female being seen today at the [facility] of the emergency room for the complaint [...] Procedure Laterality Date Appendectomy 2011 Dr. Fernández; [facility] Ovarian cyst removal 2011 Dr. Fernández; [facility] Laparoscopy N/A 06/16/2015 Procedure: Diagnostic Laparoscopy laparoscopic ovarian drilling,right; Surgeon: Nikko Morris DO; Location: [facility] MAIN OR Salpingo-oophorectomy Right 03/11/2016 Procedure: Laparoscopic R.S.O.; Surgeon: Nikko Sánchez DO; Location: [facility] MAIN OR Ovarian cyst removal 2013 Dr. Fernández; [facility] CURRENT MEDICATIONS: Current Outpatient Prescriptions Medication [...] 4"), weight 54.432 kg (120 lb), last sc nstrual period 09/01/2016, not currently . Body [...] has no apparent deficits with short or [facility] memory. She has appropriate fund of knowledge [...]
--- OUTSIDE RECORDS SUMMARY | ~2019-10-30 | XMS | Encounter Summary ---
Demographics + + + | Address | [address] | | | [place] [address] | + + + | Home Phone [...] | | | | | [place] [address] | | + + + + + | Ab Romykia | ECON | Unknown | | + + + + + Care Team Providers + +------+ + | Care Metal Flow Coordinator Name | Role | Phone | + +------+ + PCP | Unavailable | + +------+ + Encounter Details +--------+ + + + + | Date | Type | Department | Care Team | Description | +--------+ + + + + | 04/24/ | Hospital | [facility] | [place], | | | 2008 | Encounter | MED CTR EMERGENCY | Mike Yarbrough MD [address] | | | | | CENTER [address] | [address] [place] | | | | | [place], [place] | [place] [address] | | | | | [address] | [phone] | | | | | [phone] | | | +--------+ + + + [...]
--- OUTSIDE RECORDS SUMMARY | ~2019-10-30 | XMS | Encounter Summary ---
Demographics + + + | Address | [address] | | | [place] [address] | + + + | Home Phone | | + + + | Preferred Language | Unknown | + + + | Marital Status | Single | + + + | Yarsani Affiliation | 1013 | + + + | Race | Unknown | + + + | Ethnic Group | Unknown | + + + Author + + + | Author | [facility] | | | and Johnana | + + + | Organization | [facility] | | [...] | | | | | [place] [address] | | + + + + + | Ab Romykia | ECON | Unknown | | + + + + + Care Team Providers + +------+ + | Care Research Chef Name | Role | Phone | + +------+ + PCP | Unavailable | + +------+ + Encounter Details +--------+ + + + + | Date | Type | Department | Care Team | Description | +--------+ + + + + | 11/18/ | Hospital | [facility] | Rebecca Astudillo MD | | | 2011 | Encounter | MED CTR XRAY [address] | [place] | | | | | [place] | | | | | | [place] [address] | | | | | | [phone] | | | +--------+ + + + [...] Performed At | + + + | [facility] Diagnostic Imaging Department | [facility] | | [address] [facility] | [facility] | | PELVIC ULTRASOUND TRANSABDOMINAL | DIAG [...] Transcribed Date/Time: 11/19/2011 17:59 | | | Bean Viner: <Electronically Signed by Josh Alford, | | | MD> 11/22/11 1726 | | + + + + + | Procedure Note | + + | Honorio, Rad Conversion - 06/29/2013 5:37 PM [facility] | | Diagnostic Imaging Department [address] [place] [address] | | PELVIC ULTRASOUND TRANSABDOMINAL AND TRANSVAGINAL, [...] <Electronically Signed by Josh Alford MD> 11/22/11 3013 | |FINDINGS: The uterus is normal in [...] 15:26 | |Transcribed Date/Time: 11/19/2011 17:59 | |Bean Viner: | |<Electronically Signed by Josh Alford MD> [...] Performed At | + + + | [facility] Diagnostic Imaging Department | [facility] | | [address] [facility] | [facility] | | PELVIC ULTRASOUND TRANSABDOMINAL | DIAG [...] Transcribed Date/Time: 11/19/2011 17:59 | | | Bean Viner: <Electronically Signed by Josh Alford, | | | MD> 11/20/112016 | | + + + + + | Procedure Note | + + | Honorio, Rad Conversion - 06/29/2013 5:37 PM [facility] | | Diagnostic Imaging Department [address] [place] [address] | | PELVIC ULTRASOUND TRANSABDOMINAL AND TRANSVAGINAL, [...] 15:26 | |Transcribed Date/Time: 11/19/2011 17:59 | |Bean Viner: | |<Electronically Signed by Josh Alford MD> 11/20/11 2017 | + + + +---------+ + + | Performing | Address | City/State/Zipcode | Phone Number | | Organization | | | | + +---------+ + + | [place] | | | | | [facility] | | | | + +---------+ + + documented in this encounter Visit Diagnoses Not on filedocumented in this encounter"
--- OUTSIDE RECORDS SUMMARY | ~2019-10-30 | XMS | Encounter Summary ---
Demographics + + + | Address | [address] | | | [place] [address] | + + + | Home Phone [...] | | | | | [place] [address] | | + + + + + | Ab Romykia | ECON | Unknown | | + + + + + Care Team Providers + +------+ + | Care Training Development Manager Name | Role | Phone | [...] + + | 08/04/ | Emergency | [facility] | Eric Lozano, | Chronic right-sided | | 2017 - | | MED CTR EMERGENCY | MD [address] | low back pain with | | | | CENTER [address] | [place] | right-sided sciatica | | 08/05/ | | [place] | [id number] | (Primary Dx); | | 2016 | | [address] | | Lumbarization, | | | | [phone] | | vertebra; Protrusion | | | [...] sent through Care Everywhere.LUMBAR RADICULO GERARDO GARCIA (KENYAN)documented in this encounter Medications at Time of [...] | | sagittal STIR sequences. FINDINGS: Six yhv-pmk-dnxervz vertebra | | | with right L6-S1 [...] | | | report was sent by [employer] with no significant discrepancy. | | | [...] | | | FINDINGS: | | Six niz-rlu-ermnncw vertebra with right L6-S1 assimilation joint. Vertebral [...] | A preliminary report was sent by [employer] with no significant | | discrepancy. | [...] | | | | TAMMY VALVERDE: dmitry magallanes, | | | | | | | [...]
--- OUTSIDE RECORDS SUMMARY | ~2019-10-30 | XMS | Encounter Summary ---
Demographics + + + | Address | [address] | | | [place] [address] | + + + | Home Phone [...] | | | | | [place] [address] | | + + + + + | Ab Romykia | ECON | Unknown | | + + + + + Care Team Providers + +------+ + | Care Parts Identifier Name | Role | Phone | + [...] + + | 03/14/ | Emergency | [facility] | Rajiv Vieyra, | Thoracic myofascial | | 2014 - | | MED CTR EMERGENCY | MD [address] | zee varner | | | | CENTER [address] | [facility] [place] | encounter (Primary | | 03/15/ | | [place] | [place] [address] | Dx) | | 2014 | | [address] | [phone] | | | | | [phone] | | | +--------+ + + + [...] cannot be sent through Care Everywhere.THORACIC STRAIN (CYMRAES)documented in this encounter Medications at Time of [...] | ---- | | | 03/14/2015 23:24 [facility] | | | [facility] Emergency -W/C lower back injury | | | 01/04/2015 00:35 [facility] | | | Emergency RT FLANK PAIN INPATIENT VISIT TRACKING (1 MO.) | | | Visit Date LocationTypeDx / Complaint | | | ED VISIT | | | COUNT (1 YR.) Visits Medicaid NE Dx Location ------ | | | --------- 1 0 | | | [facility] 9 0 | | | [facility] 10 0 | | | Total Note: Visits indicate total known visits. Medicaid | | | NE Dx are the number of primary diagnoses on the [facility]'s non-emergent dx | | | list. | | | | | | --- [facility] has no Care Guidelines for this patient. [place] | | | Prescription Review PDMP Report [...] + + | Performing | Address | City/State[facility] | Phone Number | | [...]
--- OUTSIDE RECORDS SUMMARY | ~2019-10-30 | XMS | Encounter Summary ---
Demographics + + + | Address | [address] | | | [place] [address] | + + + | Home Phone [...] | | | | | [place] [address] | | + + + + + | Ab Romykia | ECON | Unknown | | + + + + + Care Team Providers + +------+ + | Care Pcu Rn Name | Role | Phone | + [...] + | 12/19/ | Refill | [facility] | Pj Abdi, | Medication Refill | | 2018 | | [facility] [place] | [address] | | | | | [address] | [place] | | | | | [place] | [address] | | | | | [address] | | | | | | [phone] | | | +--------+--------+ + + + [...]
--- OUTSIDE RECORDS SUMMARY | ~2019-10-30 | XMS | Encounter Summary ---
Demographics + + + | Address | [address] | | | [place] [address] | + + + | Home Phone [...] | | | | | [place] [address] | | + + + + + | Ab Romykia | ECON | Unknown | | + + + + + Care Team Providers + +------+ + | Care Apple Peeler Operator Name | Role | Phone | [...] + | 06/25/ | Refill | [facility] | Pj Abdi, | Medication Refill | | 2017 | | MEDICINE [place] | [address] | | | | | [address] | [place] | | | | | [place] | [address] | | | | | [address] | | | | | | [phone] | | | +--------+--------+ + + + [...]
--- OUTSIDE RECORDS SUMMARY | ~2019-10-30 | XMS | Encounter Summary ---
Demographics + + + | Address | [address] | | | [place] [address] | + + + | Home Phone [...] | | | | | [place] [address] | | + + + + + | Ab Romykia | ECON | Unknown | | + + + + + Care Team Providers + +------+ + | Care Senior Account Director Name | Role | Phone | [...] + | 02/12/ | Refill | [facility] | Pj Abdi, | Medication Refill | | 2016 | | MEDICINE [place] | [address] | | | | | [address] | [place] | | | | | [place] | [address] | | | | | [address] | | | | | | [phone] | | | +--------+--------+ + + + [...]
--- OUTSIDE RECORDS SUMMARY | ~2019-10-30 | XMS | Encounter Summary ---
Demographics + + + | Address | [address] | | | [place] [address] | + + + | Home Phone [...] | | | | | [place] [address] | | + + + + + | Ab Bunch | ECON | Unknown | | + + + + + Care Team Providers + +------+ + | Care Cheese Factory Worker Name | Role | Phone | + +------+ + | Charles Allen MD | PCP | | + +------+ + Encounter Details +--------+ + + + + | Date | Type | Department | Care Team | Description | +--------+ + + + + | 10/03/ | Hospital | [facility] | Charles Allen MD | Myofascial pain | | 2020 | Encounter | MED CTR ULTRASOUND | [address] [facility]. | syndrome | | | | [address] [place] | [place], [place] | | | | | [place], [place] | [address] | | | | | [address] | | | | | | [phone] | | | +--------+ + + + [...]
--- OUTSIDE RECORDS SUMMARY | ~2019-10-30 | XMS | Encounter Summary ---
Demographics + + + | Address | [address] | | | [place] [address] | + + + | Home Phone [...] | | | | | [place] [address] | | + + + + + | Ab Romykia | ECON | Unknown | | + + + + + Care Team Providers + +------+ + | Care Regulatory Manager Name | Role | Phone | + +------+ + PCP | Unavailable | + +------+ + Encounter Details +--------+ + + + + | Date | Type | Department | Care Team | Description | +--------+ + + + + | 07/08/ | Hospital | [facility] | | | | 2010 | Encounter | MED CTR [facility] | | | | | | [facility] [address] | | | | | | [place], | | | | | | [place] [address] | | | | | | [phone] | | | +--------+ + + + [...]
--- OUTSIDE RECORDS SUMMARY | ~2019-10-30 | XMS | Encounter Summary ---
Demographics + + + | Address | [address] | | | [place] [address] | + + + | Home Phone [...] | | | | | [place] [address] | | + + + + + | Ab Romykia | ECON | Unknown | | + + + + + Care Team Providers + +------+ + | Care Spinning Mule Operator Name | Role | Phone | [...] + + | 02/14/ | Emergency | [facility] | Stas Dukes | PID (pelvic | | 2016 - | | MED CTR EMERGENCY | MD Mike [address] | inflammatory | | | | [place] [address] | [address] [facility] | disease) (Primary | | 02/15/ | | [place], [place] | [place] [address] | Dx) | | 2015 | | [address] | [phone] | | | | | [phone] | | | +--------+ + + + [...] sent through Care Everywhere.PELVIC INFLAMMA TORY DISEASE (UKRAINIAN)documented in this encounter Medications at Time of [...] + | [facility] | [address] | [place] | [phone] | | [facility] | | [address] | | | - LABORATORY | | [...] [place] | | | | | | [address] | | | | + + + [...] | [address] | [place] [address] | [phone] | + + + + + Vaginal [...] [address] | [place] | [phone] | | [facility] | | [address] | | | - LABORATORY | | [...] | | preliminary report was sent by [employer] on 02/15/2016 at 11:54 | | | [...] hepatic hemangioma.A preliminary report was sent by [employer] | | on 02/15/2016 at 11:54 PM [...] | |A preliminary report was sent by [employer] on 02/15/2016 at 11:54 PM with | [...] conveyed to the ordering provider, by the design studio consultant, | | | immediately following the exam. [...] the ordering provider, by the | | design studio consultant, immediately following the exam. | | | [...] + | [facility] | [address] | [place], [place] | [phone] | | [facility] | | [address] | | | - LABORATORY | | [...] [address] | [place] | [phone] | | [facility] | | [address] | | | - LABORATORY | | [...] - 1.030 | [facility] | | | [place], | | | [facility] | | [...] + | [facility] | [address] | [place] | [phone] | | [facility] | | [address] | | | - LABORATORY | | [...] | [address] | [place] | [phone] | | [facility] | | [address] | | | - LABORATORY | | [...] [address] | [place] | [phone] | | [facility] | | [address] | | | - LABORATORY | | [...] + | [facility] | [address] | [place], [place] | [phone] | | [facility] | | [address] | | | - LABORATORY | | [...] | mL/min/1.73m2 | [place] | | | [place] | RATE,ESTIMATED | | MEDICAL | | | | mL/min/1.32g0Hobc than | | CENTER - | | [...] + | [facility] | [address] | [place] | [phone] | | [facility] | | [address] | | | - LABORATORY | | [...] [address] | [place] | [phone] | | [facility] | | [address] | | | - LABORATORY | | [...] | | | | | Intravenous, ONCE, [place] 02/15/16 at | | PM PDT | | | | | 2255, For 1 dose | | | | | | + +-------+ +--------+---+---+ +---+---+ | | | +---+---+ + +-------+ +--------+---+---+ | HYDROmorphone (DILAUDID) | Given | 02/16/20 | 0.5 mg | | | | injection 0.5 mg 0.5 mg, | | 16 1:08 | | | | | Intravenous, ONCE, [facility] 02/16/16 at | | AM PDT | | | | | 0040, For 1 dose | | | | | | + +-------+ +--------+---+---+ +---+---+ | | | +---+---+ + +-------+ +--------+---+---+ | HYDROmorphone (DILAUDID) | Given | 02/16/20 | 0.5 mg | | | | injection 0.5 mg 0.5 mg, | | 16 2:40 | | | | | Intravenous, ONCE, [facility] 02/16/16 at | | AM PDT | [...] PDT | | | | | Starting [place] 02/15/16 at 2334, For | | | | | | | 1 dose, Cat Scanner | | | | | | + +-------+ +--------+---+---+ +---+---+ | | | +---+---+ + +-------+ +------+---+---+ | morphine injection 2 mg 2 mg, | Given | 02/15/20 | 2 mg | | | | Intravenous, ONCE, [place] 02/15/16 at | | 16 10:03 | [...] 16 10:03 | | | | | [place] 02/15/16 at 2135, For 1 dose | [...]
--- OUTSIDE RECORDS SUMMARY | ~2019-10-30 | XMS | Encounter Summary ---
Demographics + + + | Address | [address] | | | [place] [address] | + + + | Home Phone [...] | | | | | [place] [address] | | + + + + + | Ab Romykia | ECON | Unknown | | + + + + + Care Team Providers + +------+ + | Care Airplane Coverer Name | Role | Phone | + +------+ + | Pj Abdi MD | PCP | | + +------+ + Reason for Visit + + + | Reason | Comments | + + + | New Patient | | + + + | Depression | | + + + | Anxiety | | + + + Encounter Details +--------+---------+ + + + | Date | Type | Department | Care Team | Description | +--------+---------+ + + + | 11/02/ | Office | [facility] | Pj Abdi, | Generalized anxiety | | 2017 | Visit | [facility] | [address] | disorder (Primary | | | | [address] | [place] | Dx); Panic disorder; | | | | [place] | [address] | Moderate episode of | | | | [id number] | | recurrent major | | | | [phone] | | depressive disorder | | | | | | (HCC); DDD | | | | | | (degenerative disc | | | | | | disease), lumbar; | | | | | | Enlarged thyroid; | | | | | | Need for | | | | | | 23-polyvalent | | | | | | pneumococcal | | | | | | polysaccharide | | | | | | vaccine | +--------+---------+ + + + Social History [...] + + + | Blood Pressure | 120/58 | 11/02/2016 10:01 AM | | | | | PDT | | + + + + + | Pulse | 113 | 11/02/2016 10:01 AM | | | | | PDT | | + + + + + | Temperature | 36.8 C (98.2 F) | 11/02/2016 10:01 AM | | | | | PDT | | + + + + + | Respiratory Rate | 16 | 11/02/2016 10:01 AM | | | | | PDT | | + + + + + | Oxygen Saturation | 98% | 11/02/2016 10:01 AM | | | | | PDT | | + + + + + | Inhaled Oxygen | - | - | | | Concentration | | | | + + + + + | Weight | 58.5 kg (129 lb) | 11/02/2016 10:01 AM | | | | | PDT | | + + + + + | Height | 165.1 cm (5' 5") | 11/02/2016 10:01 AM | | | | | PDT | | + + + + + | Body Mass Index | 21.47 | 11/02/2016 10:01 AM | | | | | PDT | | + + + + + documented in this encounter Patient Instructions Patient Instructions Joann Baker Cert MA - 11/02/2016 9:30 AM PDTCrisis HelpLine ) Please go to [facility] ED for psych evaluation in the event you become a harm to your self or anyone else. documented in this encounter Progress Notes Joann Baker Cert MA - 11/02/2016 9:30 AM PDTAfter obtaining informed consent, the im munization is given by FRANCISCO ZAPATA. Pj Valadez MD - 11/02/2016 9:30 AM PDT Donna Camarena is a 21 y.o. female Chief Complaint: New Patient; Depression; and Anxiety HPI Patient is here to establish care She was being seen by Cas Rhodes at [facility] She has 2 sons She reports she wanted to switch due to some issues with her medications She felt like she was not being listened to by the previous provider Depression/Anxiety: Patient is here for evaluation of Depression and anxiety. She has been diagnosed elsewhere and several medications have been tried. She reports she has tried Celexa, Wellbutrin, and P rozac for depression and Hydroxyzine and Propranolol for her anxiety symptoms. She reports t he Prozac did help with her symptoms. She lives with her marta's family and does not like t o leave her room let alone the house. She feels like this increased anxiety started in [facility]. She feels like her anxiety became very bad when she had to leave her youngest son home while taking classes in [employer]. She reports her childhood was not a healthy situation. Her mother was not really a stable factor and did not know her father. She reports her gran dparents raised her. She reports her living situation is tense with her marta's family. She lives with marta's mother, grandmother, and brother. 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 Onset: Ongoing She has the following depression symptoms: anhedonia, depressed mood, difficulty concentrat ing, fatigue, feelings of worthlessness/guilt, hopelessness, impaired memory, insomnia, psyc homotor agitation and recurrent thoughts of She denies the following symptoms: hypersomnia, psychomotor retardation, suicidal attempt, suicidal thoughts with specific plan and suicidal thoughts without plan She complains of the following anxiety symptoms: feeling nervous, anxious, not able to stop worrying, worrying too much, having trouble relaxing, being restless/hard to sit still, eas abdoulaye annoyed or irritable and feeling afraid something bad might happen Symptoms are worsening Sleep Disturbance: Yes Are you currently in counseling: no Treatments Tried: Celexa and counseling Have they been effective: No she reports she has a hard time opening up to people she has t ried counseling in the past but stopped going PHQ-9 score: 17 SULMA-7 score: 14 MDQ score: negative Back Pain She reports she has seen Dr Dejesus who gave her some Hydrocodone 5-325 mg 1 tab every 6 hours as needed. She reports she only uses it when the Gabapentin,Naproxen, and Cyclobenzap rine are not helping. She has concerns that she will become paralyzed since being told this was a possibility. She has tried PT previously and discussed injections with production technologist. Sh ajay reports her insurance does not want to pay for the injections. Plan as follows: PLAN: 1. We discussed that the main [...] AND SIGNED BY: Fadi Dejesus MD, 09/21/2016 She was seen in the ED in July and MRI was done Results as follows: IMPRESSION - Mild cervical spondylosis with small central disc protrusions at C5-C6 and C6-C7. Small annular tear at C5-C6. Unremarkable thoracic spine MRI. Stable disc protrusion at L5-S1 with mild there of the central spinal canal. No significant interval change. Urine distended bladder. The preliminary report*provided by Dr. Cuevas on August 08, 2016 at 1:15 AM and 08/08/2016 5:08:00 AM. Dictated and Signed by: Nikko Nickerson MD PREVENTIVE CARE/PRIOR VISITS 1. Any recommendations from Health Maintenance: none Preventative Services TOPIC LAST DONE NEXT DUE Influenza Imm (Yearly) 01/21/2017 Cervical Cancer Screening (Pap Every 3 Years 21-64 ) 2014 Dtap/Tdap/Td Imm 08/23/2013 08/24/2023 Hpv Imm 12/02/2011 04/03/2012 Pneumo Imm Ppsv23 11/02/2016 2. Any immunizations necessary: none Immunization History Administered Date(s) Administered HPV, QUADRIVALENT, 3 DOSE (ADOL/ADULT) 08/18/2011, 12/02/2011 PNEUMOCOCCAL POLYSACCHARIDE 23-VALENT (PPSV23) 11/02/2016 TDAP, (ADOL/ADULT) 08/23/2013 3. Has patient been involved in medical events/hospitalizations since their last visit: ED visit for back Allergies Allergen Reactions Dimetapp Cold-Allergy Hives and Rash Meloxicam Hives, Anxiety and Rash Medications: Patient Reported Taking Dosage citalopram (CELEXA) 20 mg tablet (Taking/Discontinued) Take 20 mg by mouth Daily. Number of times this order has been changed since signin Order [facility] [place] cyclobenzaprine (FLEXERIL) 10 mg tablet (Taking) Take 1 tablet by mouth 3 times daily as needed for Muscle spasms. Number of times this order has been changed since signin Order [facility] [place] cyclobenzaprine (FLEXERIL) 10 mg tablet (Taking/Discontinued) Take 10 mg by mouth 3 times daily as needed for Muscle spasms. gabapentin (NEURONTIN) 300 mg capsule (Taking) 900 mg Daily. HYDROcodone-acetaminophen (NORCO) 5-325 mg per tablet (Taking/Discontinued) Take 1 tablet by mouth every 6 hours as needed for Pain. hydrOXYzine hydrochloride (ATARAX) 25 mg tablet (Taking) Take 2 tablets by mouth every 6 hours as needed for Itching or Anxiety. Number of times this order has been changed since signin Order [facility] [place] hydrOXYzine hydrochloride (ATARAX) 25 mg tablet (Taking/Discontinued) Take 25 mg by mouth every 6 hours as needed for Itching or Anxiety. naproxen (NAPROSYN) 500 mg tablet (Taking) Take 500 mg by mouth 2 times daily (with break fast & dinner). ondansetron (ZOFRAN ODT) 4 mg disintegrating tablet (Taking) Take 4 mg by mouth every 8 h ours as needed for Nausea. propranolol (INDERAL) 10 mg tablet (Taking/Discontinued) 10 mg 2 times daily. propranolol (INDERAL) 10 mg tablet (Taking) Take 1 tablet by mouth 2 times daily. Number of times this order has been changed since signin Order [facility] [place] Past Medical History She has a past [...] history includes Alcohol abuse in her mother; Cancer in her mother; Mental illne ss in her mother; No Known Problems in her child, child, father, maternal grandfather, mater nal grandmother, paternal grandfather, and paternal grandmother. Social History: Social History Social History Marital status: Significant Other Spouse name: DOT CARD Number of children: 2 Years of education: G.E.D. 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 HENT: Negative for congestion, rhinorrhea and sore throat. Eyes: Negative for discharge and itching. Respiratory: Negative for cough. Cardiovascular: Negative for chest pain and palpitations. Gastrointestinal: Negative for abdominal pain, constipation, diarrhea and vomiting. Genitourinary: Negative for difficulty urinating, dysuria, frequency and urgency. Musculoskeletal: Positive for back pain and neck pain. Skin: Negative for rash. Neurological: Negative for dizziness and headaches. Psychiatric/Behavioral: Positive for dysphoric mood and sleep disturbance. The patient is n ervous/anxious. Objective: Vitals: 11/02/16 1001 BP: 120/58 Pulse: 113 Resp: 16 Temp: 36.8 C (98.2 F) TempSrc: Temporal SpO2: 98% Weight: 58.5 kg (129 lb) Height: 1.651 m (5' 5") Physical Exam Constitutional: She is oriented to person, place, and time. She appears well-developed and well-nourished. No distress. HENT: Head: Normocephalic and atraumatic. Eyes: Conjunctivae are normal. Right eye exhibits no discharge. Left eye exhibits no discha rge. Neck: Neck supple. No JVD present. Thyromegaly present. Cardiovascular: Regular rhythm and normal heart sounds. Tachycardia present. No murmur heard. Pulmonary/Chest: Effort normal and breath sounds normal. No respiratory distress. She has n o wheezes. She has no rales. Lymphadenopathy: She has no cervical adenopathy. Neurological: She is alert and oriented to person, place, and time. Skin: Skin is warm and dry. She is not diaphoretic. Psychiatric: She has a normal mood and affect. Her behavior is normal. PHQ9 Depression scale: Date of Last ScreeningTotal Score 17 (11/02/16899) (Printable questionnaires in [place]i ) Interpretation of Total Score: 1-4 = Minimal depression, 5-9 = Mild depression, 10-14 = Mod erate depression, 15-19 = Moderately severe depression, 20-27 = Severe depression 1. Little interest or pleasure in doing things?: More than half the days (11/02/16899) 2. Feeling down, depressed, or hopeless: More than half the days (11/02/16899) 3. Trouble falling or staying asleep, or sleeping too much?: Nearly every day (11/02/16899) 4. Feeling tired or having little energy?: More than half the days (11/02/16899) 5. Poor appetite or overeating: More than half the days (11/02/16899) 6. Feeling bad about yourself - or that you are a failure or have let yourself or your f amily down?: More than half the days (11/02/16899) 7. Trouble concentrating on things, such as reading the newspaper or watching television : Several days (11/02/16899) 8. Moving or speaking so slowly that other people could have noticed. Or the opposite - being so fidgety or restless that you have been moving around a lot more than usual?: Antonya l days (11/02/16899) 9. Thoughts that you would be better off , or of hurting yourself in some way?: More than half the days (11/02/16899) 10. If you checked off any problems, how difficult have these problems made it for you to do your work, take care of things at home, or get along with other people?: Very difficult ( 11/02/16899) General Anxiety Disorder (SULMA-7): Total Score 14 (11/02/16899) (From SULMA or Chronic Pain tab; printable questionnaires in [place] ) Interpretation of Total Score: 8-9 = consistent with Generalized anxiety disorder, >15 = se janessa 1. Feeling nervous, anxious, or on edge?: Nearly every day (11/02/16899) 2. Not being able to stop or control worrying: More than half the days (11/02/16899) 3. Worrying too much about different things?: More than half the days (11/02/16899) 4. Trouble relaxing?: More than half the days (11/02/16899) 5. Being so restless that it is hard to sit still?: More than half the days (11/02/16899 ) 6. Becoming easily annoyed or irritable?: Several Days (11/02/16899) 7. Feeling afraid as if something awful might happen?: More than half the days (11/02/16 900) Mood Disorders Questionnaire MDQ Q1 Score: 5 (From MDQ Documentation flowsheet) Positive screen: 7 or more positive in 1-13, as well as Yes to question 14, and Moderate or Serious in 15 Has there ever been a period of time when you were not your usual self and you felt so good or so hyper that other people thought you were not your normal self, or you were so hyper t hat you got into trouble?: No Has there ever been a period of time when you were not your usual self and you were so irri table that you shouted at people or started fights or arguments?: Yes Has there ever been a period of time when you were not your usual self and you felt much mo re self-confident than usual?: No Has there ever been a period of time when you were not your usual self and you got much les s sleep than usual and found you didn't really miss it?: Yes Has there ever been a period of time when you were not your usual self and you were much mo re talkative or spoke much faster than usual?: Yes Has there ever been a period of time when you were not your usual self and thoughts raced t hrough your head or you couldn't slow your mind down?: Yes Has there ever been a period of time when you were not your usual self and you were so easi ly distracted by things around you that you had trouble concentrating or staying on track?: No Has there ever been a period of time when you were not your usual self and you had much mor e energy than usual?: No Has there ever been a period of time when you were not your usual self and you were much mo re active or did many more things than usual?: No Has there ever been a period of time when you were not your usual self and you were much mo re social or outgoing than usual; for example, you telephoned friends in the middle of the n ight?: No Has there ever been a period of time when you were not your usual self and you were much mo re interested in sex than usual?: No Has there ever been a period of time when you were not your usual self and you did things t hat were unusual for you or that other people might have thought were excessive, foolish, or risky?: No Has there ever been a period of time when you were not your usual self and spending money g ot you or your family into trouble?: Yes MDQ Q2: If you checked YES to more than one of the above, have several of these ever happen ed during the same period of time?: Yes MDQ Q3: How much of a problem did any of these cause you?: Minor problem Nursing note and vitals reviewed. Results for orders placed or performed during the hospital encounter of 08/07/16 CBC with Differential Result Value Ref Range WBC 9.3 4.0 - 11.0 K/uL RBC 3.24 (L) 3.70 - 5.20 M/uL Hgb 10.4 (L) 11.5 - 16.0 g/dL Hct 30.7 (L) 34.0 - 47.0 % MCV 94.7 83.0 - 101.0 fL MCH 32.0 28.0 - 35.0 pg MCHC 33.8 32.0 - 36.0 g/dL RDW-CV 12.9 <15.0 % Platelet Count 351 140 - 440 K/uL MPV 7.0 fL % Neutrophils 81.0 45.0 - 82.0 % % Lymphocytes 15.2 (L) 20.0 - 45.0 % % Monocytes 3.5 (L) 4.0 - 12.0 % % Eosinophils 0.1 0.0 - 5.0 % % Basophils 0.2 0.0 - 1.0 % Absolute Neutrophils 7.50 1.80 - 8.50 K/uL Absolute Lymphocytes 1.40 0.60 - 3.20 K/uL Absolute Monocytes 0.30 0.00 - 1.00 K/uL Absolute Eosinophils 0.00 0.00 - 0.40 K/uL Absolute Basophils 0.00 0.00 - 0.10 K/uL Comprehensive Metabolic Panel Result Value Ref Range NA 140 136 - 149 mmol/L K 3.2 (L) 3.5 - 5.1 mmol/L CL 107 98 - 109 mmol/L CO2 24 24 - 31 mmol/L ANION GAP 9 3 - 16 mmol/L GLUCOSE 122 (H) 70 - 109 mg/dL BUN 4 (L) 7 - 18 mg/dL Creatinine, Serum/Plasma 0.56 (L) 0.60 - 1.30 mg/dL eGFR if not >60 >=60 mL/min/1.73m2 CALCIUM 8.4 8.3 - 10.5 mg/dL ALBUMIN 3.2 3.2 - 5.0 g/dL BILIRUBIN TOTAL 0.5 0.1 - 1.5 mg/dL Total protein 5.5 (L) 6.0 - 7.8 g/dL AST 14 10 - 42 U/L ALT 15 6 - 45 U/L ALK PHOS 59 40 - 110 U/L GLOBULIN 2.3 2.1 - 3.8 g/dL Albumin/Globulin ratio 1.4 0.8 - 2.0 BUN/CREA 7.1 Sedimentation Rate Result Value Ref Range ESR 7 <20 mm/hr C-Reactive Protein, High Sensitivity Result Value Ref Range CRP, High Sensitive 0.68 <=3.00 mg/L , Serum, Qual Result Value Ref Range HCG SCREEN,SERUM Negative Negative Urinalysis with Microscopic with Culture if Indicated Result Value Ref Range COLOR Yellow Light Yellow, Yellow, Straw CLARITY Clear Clear PH UA 7.0 5.0 - 8.0 Specific [place] 1.009 1.001 - 1.030 PROTEIN UA Negative Negative BLOOD UA Negative Negative GLUCOSE UA Negative Negative KETONES UA Negative Negative BILIRUBIN UA Negative Negative NITRITE UA Negative Negative LEUKOCYTES ESTERASE UA Negative Negative UROBILINOGEN UA Negative 0.2 mg/dL, 1.0 mg/dL, Negative WBC UA 0-2 0 - 2 /HPF RBC UA 0-2 0 - 2 /HPF SQUAMOUS EPITHELIAL UA 2-5 (A) 0 - 2 /LPF BACTERIA UA Negative Negative /HPF MUCUS UA Present (A) Negative /LPF URINE COMMENT Urine Culture Not Indicated Extra Green Top Tube Result Value Ref Range Extra Green Top Tube Done Extra Blue Top Tube Result Value Ref Range Extra Blue Top Tube Done Reviewed imaging and notes from PMR. Assessment: 1. Generalized anxiety disorder propranolol (INDERAL) 10 mg tablet hydrOXYzine hydrochloride (ATARAX) 25 mg tablet 2. Panic disorder propranolol (INDERAL) 10 mg tablet hydrOXYzine hydrochloride (ATARAX) 25 mg tablet 3. Moderate episode of recurrent major depressive disorder (HCC) 4. DDD (degenerative disc disease), lumbar cyclobenzaprine (FLEXERIL) 10 mg tablet 5. Enlarged thyroid TSH 6. Need for 23-polyvalent pneumococcal polysaccharide vaccine Pneumococcal polysaccharide vaccine 23-valent greater than or equal to 2yo subcutaneous/IM [54943] Plans: 1. Generalized Anxiety Disorder 2. Panic Disorder 3. Moderate episode of recurrent major depressive disorder (HCC) Patient has failed or is currently failing at least one neuropsychiatric medication. Medication(s) failed or failing: Wellbutrin, Celexa, Prozac Patient is on multiple medications for his/her condition which increases the risk for adver se drug events: no I am considering folate supplementation for patient. I am contemplating an alteration in a neuropsychiatric medication treatment, which may incl ude medication elimination, switching, augmentation, and/or dose adjustment, and therefore estrella leiva ordered GeneSight Psychotropic, Analgesic, ADHD, MTHFR on 11/03/2016. Denies SI/HI and contracted for safety. Provided phone number for Crisis HelpLine ([phone]) and informed to go to [facility] ED for psych evaluation in the event they become a harm to themselves or anyone else. Reviewed with Donna that it is highly recommended that she seek counseling to help deal w ith her anxiety. Medication changes will be attempted once testing returns. 4. DDD (degenerative disc disease), lumbar- Physiatry working with patient and insurance for injections Will research opioid prescription refills on state web site ( [place] PDMP) - Rest with modified activities - ice/heat as directed -. Antiinflamitory pain medications as directed Reviewed that I will not write for pain medication today because I will need to verify with PDMP. Also reviewed that chronic use of opioids will be avoided for halfway control of he r pain. Some leeway will be given as she is working on injections with PMR and while we get her anxiety under control. It will be impossible for her pain to be under control with the e xtent of her anxiety. Also reviewed that she will need to only receive opioid medications fr om me. She will be scheduled with our pharmacist to review and sign a pain contract as requi red by [place] state law. - Discussed with the patient that they should seek immediate medical care if they experienc e progressive decline in their neurologic status such as loss of bowel and bladder control, increased weakness or numbness of an extremity. These could be consistent with damage to you r spinal cord or nerves and is a medical emergency. Reassurance given that if this would occur there is time to get medical help before she wou ld be paralyzed. 5. Enlarged Thyroid Found on exam will check TSH Labs ordered. Will notify of results as they are available. - TSH; future Follow-up: Return in about 4 weeks (around 11/30/2016) for Anxious Depression. JOANN Sanches Cert MA, am acting as a scribe on behalf of, and in the presence of MD JOANN Agustin Cert MA 11/03/16 Pj Sanches MD, personally performed the services described in this documentation, as scribed in my presence and it is both accurate and complete. Pj Abdi MD 11/03/16Ele ctronically signed by Pj Abdi MD at 11/03/2016 6:04 PM PDTdocumented in this encoun ter Plan of Treatment +------+------+--------+ + + | Name | Type | Priori | Associated Diagnoses | Order Schedule | | | | ty | | | +------+------+--------+ + + | TSH | Lab | Routin | Enlarged thyroid | 1 Occurrences | | | | e | | starting 11/02/2016 | | | | | | until 11/02/2017 | +------+------+--------+ + + documented as of this encounter Procedures + +--------+ + + + | Procedure Name | Priori | Date/Time | Associated Diagnosis | Comments | | | ty | | | | + +--------+ + + + | LABS - EXTERNAL SCAN | | 11/05/2016 | | Results for this | | | | 12:00 AM | | procedure are in the | | | | PDT | | results section. | + +--------+ + + + documented in this encounter Results LABS - EXTERNAL SCAN (11/05/2016 12:00 AM PDT) + + + | Narrative | Performed At | + + + | Ordered by an | | | unspecified provider. | | + + + documented in this encounter Visit Diagnoses + + | Diagnosis | + + | Generalized anxiety disorder - Primary | + + | Panic disorder Panic disorder without agoraphobia | + + | Moderate episode of recurrent major depressive disorder (HCC) | + + | DDD (degenerative disc disease), lumbar Degeneration of lumbar or lumbosacral | | intervertebral disc | + + | Enlarged thyroid Goiter, unspecified | + + | Need for 23-polyvalent pneumococcal polysaccharide vaccine | + + documented in this encounter
--- OUTSIDE RECORDS SUMMARY | ~2019-10-30 | XMS | Encounter Summary ---
Demographics + + + | Address | [address] | | | [place] [address] | + + + | Home Phone | | + + + | Preferred Language | Unknown | + + + | Marital Status | Single | + + + | Caodaism Affiliation | 1013 | + + + [...] | | | | | [place] [address] | | + + + + + | Ab Bunch | ECON | Unknown | | + + + + + Care Team Providers + +------+ + | Care Research Chemical Engineer Name | Role | Phone | [...] + + + + | 03/11/ | Anesthesia | [facility] | Hammad Watts | | | 2016 | Event | MED CTR OR [facility] OP | MD Rosalie [address] | | | | | [address] | [address] [place] | | | | | [place], [place] | [place] [address] | | | | | [address] | [phone] | | | | | [phone] | | | | | | | Maycol Ervin, | | | | | | [address] | | | | | | [place], [place] | | | | | | [address] | | | | | | [phone] | | | | | | | | +--------+ + + + + Anesthesia Record + + + + + | Procedure Name | Responsible | Anesthesia Start | Anesthesia Stop Time | | | Anesthesiologist | Time | | + + + + + | Laparoscopic R.S.O. | Hammad Watts, | 03/11/16 1236 | 03/11/16 1337 | | (Right Ovary) | MD | | | + + + + + +----+---+ + + | Da | T | Event | Comment | | te | i | | | | | m | | | | | e | | | +----+---+ + + | 10 | 1 | | | | /2 | 1 | | | | 0/ | 4 | | | | 20 | 4 | | | | 16 | | | | +----+---+ + + | | 1 | An Checkout | Pre-use anesthesia machine/equipment checkout. | | | 2 | | | | | 3 | | | | | 5 | | | +----+---+ + + | | 1 | An Start | Reassessment prior to anesthesia induction/procedure. | | | 2 | | | | | 3 | | | | | 6 | | | +----+---+ + + | | 1 | AN | Per surgeon request | | | 2 | Antibiotic | | | | 4 | declined | | | | 0 | | | +----+---+ + + | | 1 | Preoxygenat | | | | 2 | ed | | | | 4 | | | | | 0 | | | +----+---+ + + | | 1 | An | | | | 2 | Induction | | | | 4 | | | | | 3 | | | +----+---+ + + | | 1 | An | | | | 2 | Intubation | | | | 4 | | | | | 5 | | | +----+---+ + + | | 1 | [place] | | | | 2 | 43-degrees | | | | 5 | | | | | 5 | | | +----+---+ + + | | 1 | Pre-Procedu | | | | 2 | ral Timeout | | | | 5 | Completed | | | | 8 | | | +----+---+ + + | | 1 | First | | | | 2 | Inc/Proc St | | | | 5 | | | | | 9 | | | +----+---+ + + | | 1 | [place] off | | | | 3 | | | | | 3 | | | | | 1 | | | +----+---+ + + | | 1 | AN No | TOF 4/4 with sustained tetanus. | | | 3 | Residual | | | | 3 | NMB | | | | 1 | | | +----+---+ + + | | 1 | Oropharynx | | | | 3 | Suctioned | | | | 3 | | | | | 1 | | | +----+---+ + + | | 1 | Breathing | | | | 3 | Spontaneous | | | | 3 | ly | | | | 1 | | | +----+---+ + + | | 1 | Moving | | | | 3 | Purposefull | | | | 3 | y | | | | 1 | | | +----+---+ + + | | 1 | Extubated | | | | 3 | Awake | | | | 3 | | | | | 1 | | | +----+---+ + + | | 1 | an stop | | | | 3 | data | | | | 3 | | | | | 1 | | | +----+---+ + + | | 1 | An Stop | Patient handed off to recovery nurse. | | | 3 | | | | | 7 | | | +----+---+ + + +------+ | Meds | +------+ + + + | Name | Total | + + + | midazolam | 2 mg | + + + | fentaNYL injection (2 mL) | 100 mcg | + + + | propofol (DIPRIVAN) injection | 150 mg | | (bolus) (20 mL) | | + + + | propofol | 320.4 mg | + + + | lidocaine 2% | 75 mg | + + + | rocuronium | 30 mg | + + + | dexamethasone | 10 mg | + + + | ondansetron (ZOFRAN) injection 4 | 4 mg | | mg | | + + + | ketorolac | 30 mg | + + + | lactated ringers (LR) infusion | 0 mL | + + + | lactated ringers (LR) infusion | 1,000 mL | + + + + + [...] Removal | +--------+ + + + | Read | 06/16/15; 35; abdomen; | 06/16/15 0835 by | 03/11/16 1635 by | | only - | 03/11/16; 1634 | Ping Vázquez, | Leslye Stovall, JAMEL | | | | RN | | | Incisi | | | | | on | | | | +--------+ + + + | Periph | 02/15/16; 2200; Right; | 02/15/16 2200 by | 03/11/16 1635 by | | eral | Antecubital; [id number] | Cathleen Tatum, | Leslye Stovall RN | | IV | catheter system; 20 gauge; | RN | | | | Hematology, Chemistry; 03/11/16; | | | | | 1635 | | | +--------+ + + + | Periph | 03/11/16; 1145; Right; Forearm; | 03/11/16 1145 by | 03/11/16 1540 by | | eral | 18 gauge; distraction, | Jeannine Tijerina RN | Leslye Stovall RN | | IV | intradermal injection, topical | | | | | anesthetic spray applied; no | | | | | longer indicated, removed per | | | | | policy/procedure, catheter/device | | | | | intact; short term use; | | | | | 03/11/16; 1540 | | | +--------+ + + + | Read | 03/11/16; 1230; medial; umbilical | 03/11/16 1230 by | 03/26/17 0238 by | | only - | area; 03/26/17; 0238 | Janes Jones, | Bon Hargrove RN | | | | RN | | | Incisi | | | | | on | | | | +--------+ + + + | Airway | Placement Date: 03/11/16; | 03/11/16 1245 by Hammad | 03/11/16 1331 by Tor | | | Placement Time: 1245 (created via | Rosalie Watts MD | Rosalie Watts MD | | | procedure documentation); Mask | | | | | Ventilation: EZ; Airway Grade: | | | | | 2a; Successful Technique: Mac; | | | | | Laryngoscope Blade Size: 3; | | | | | Attempts: 1; Airway Type: | | | | | endotracheal; Size: 6.5; Airway | | | | | Tube Secured At: 21; Other | | | | | Equipment: stylette; Placement | | | | | Check: exhaled CO2 detection | | | | | device; Removal Date: 03/11/16; | | | | | Removal Time: 1331 | | | +--------+ + + + | Urethr | 03/11/16; 1302; indicated due to | 03/11/16 1302 by | 03/11/16 1303 by | | al | specific surgical procedure; | Rakel Johnson RN | Rakel Johnson RN | | Cathet | intermittent catheter; latex; 14; | | | | er | None; 1; 0; 0; other (see | | | | | comments) (anesthesia); other | | | | | (see comments) (gravity); | | | | | urethral catheter removed; | | | | | straight cath, 200mL urinary | | | | | output; 03/11/16; 1303 | | | +--------+ + + + | Read | 03/11/16; 1304; vagina; healing | 03/11/16 1304 by | 03/11/16 1555 by | | only - | within expectations; 03/11/16; | Rakel Johnson RN | Leslye Stovall RN | | | 1555 | | | | Incisi | | | | | on | [...] | + +--------+ + + + | ANE AIRWAY NOTE | Routin | 03/11/2016 | | Results for this | | | e | 1:01 PM | | procedure are in the | | | | PDT | | results section. | + +--------+ + + + documented in this encounter Results Anesthesia Airway Note (03/11/2016 1:01 PM PDT) + + + | Narrative | Performed At | + + + | Hammad Watts MD 03/11/2016 13:01 Anesthesia Airway | | | Placement 03/11/2016 12:45 Preprocedure check: patient | | | identified, oxygen, airway assessed, patient reassessment prior to | | | induction, airway equipment checked and suction Rapid Sequence | | | Induction: no Mask ventilation: easy Successful technique: Mac | | | Laryngoscope blade size: 3 Airway grade: 2a (Partial view of | | | glottis) Other equipment: stylette Attempts: 1 Airway type: | | | endotracheal Size: 6.5 Cuffed: cuffed Route, reference point: right | | | side of mouth Tube depth: 21 cm Tube secured with: adhesive tape | | | Trauma: none Tube placement verification: carbon dioxide detection | | | Performing provider: HAMMAD WATTS Electronically Signed | | | by: Hammad Watts MD ESig | | | date/time: 03/11/2016 13:00 | | + + + documented in this encounter Visit Diagnoses Not on filedocumented in this encounter Administered Medications + +--------+ +-------+------+------+ | Medication Order | MAR | Action | Dose | Rate | Site | | | Action | Date | | | | + +--------+ +-------+------+------+ | dexamethasone (DECADRON) 10 | Given | 03/11/20 | 10 mg | | | | mg/mL injection Intravenous, | | 16 12:47 | | | | | PRN, Starting Joanie 03/11/16 at | | PM PDT | | | | | 1247, Anesthesia Intra-op | | | | | | + +--------+ +-------+------+------+ +---+---+ | | | +---+---+ + +-------+ +---------+---+---+ | fentaNYL (PF) injection | Given | 03/11/20 | 100 mcg | | | | Intravenous, PRN, Pain, Starting | | 16 12:43 | | | | | Joanie 03/11/16 at 1243, Anesthesia | | PM PDT | | | | | Intra-op | | | | | | + +-------+ +---------+---+---+ +---+---+ | | | +---+---+ + +-------+ +-------+---+---+ | ketorolac (TORADOL) injection | Given | 03/11/20 | 30 mg | | | | Intravenous, PRN, Pain, Starting | | 16 1:19 | | | | | Joanie 03/11/16 at 1319, Anesthesia | | PM PDT | | | | | Intra-op | | | | | | + +-------+ +-------+---+---+ +---+---+ | | | +---+---+ + +---------+ +---+---+---+ | lactated ringers (LR) infusion | New Bag | 03/11/20 | | | | | at 10-100 mL/hr, Intravenous, | | 16 1:19 | | | | | CONTINUOUS, Starting Joanie 03/11/16 | | PM PDT | | | | | at 1145, TKO. Use this instead | | | | | | | of NS unless dialysis patient., | | | | | | | Pre-op | | | | | | + +---------+ +---+---+---+ +---------+ +---+---+---+ | New Bag | 03/11/20 | | | | | | 16 12:36 | | | | | | PM PDT | | | | +---------+ +---+---+---+ +---+---+ | | | +---+---+ + +-------+ +-------+---+---+ | lidocaine (PF) 2% injection | Given | 03/11/20 | 75 mg | | | | Intravenous, PRN, Starting Joanie | | 16 12:43 | | | | | 16 at 1243, Anesthesia | | PM PDT | | | | | Intra-op | | | | | | + +-------+ +-------+---+---+ +---+---+ | | | +---+---+ + +-------+ +------+---+---+ | midazolam (VERSED) 1 mg/mL | Given | 03/11/20 | 2 mg | | | | injection Intravenous, PRN, | | 16 12:36 | | | | | Anxiety, Starting Joanie 03/11/16 at | | PM PDT | | | | | 1236, Anesthesia Intra-op | | | | | | + +-------+ +------+---+---+ +---+---+ | | | +---+---+ + +-------+ +------+---+---+ | ondansetron (ZOFRAN) injection | Given | 03/11/20 | 4 mg | | | | 4 mg 4 mg, Intravenous, ONCE | | 16 12:47 | | | | | PRN, Nausea, Starting Joanie | | PM PDT | | | | | 03/11/16 at 1118, For 1 dose, | | | | | | | Pre-op | | | | | | + +-------+ +------+---+---+ +---+---+ | | | +---+---+ + +-------+ +--------+---+---+ | propofol (DIPRIVAN) injection | Given | 03/11/20 | 150 mg | | | | Intravenous, PRN, Starting Joanie | | 16 12:43 | | | | | 03/11/16 at 1243, Anesthesia | | PM PDT | | | | | Intra-op | | | | | | + +-------+ +--------+---+---+ +---+---+ | | | +---+---+ + +---------+ + +-------+---+ | propofol (DIPRIVAN) injection | New Bag | 03/11/20 | 200 | 64.1 | | | Intravenous, CONTINUOUS PRN, | | 16 12:56 | mcg/kg/m | mL/hr | | | Starting Joanie 03/11/16 at 1256, | | PM PDT | in | | | | Anesthesia Intra-op | | | | | | + +---------+ + +-------+---+ +---+---+ | | | +---+---+ + +-------+ +-------+---+---+ | rocuronium (ZEMURON) injection | Given | 03/11/20 | 30 mg | | | | Intravenous, PRN, Starting Joanie | | 16 12:43 | | | | | 03/11/16 at 1243, Anesthesia | | PM PDT | | | | | Intra-op | | | | | | + +-------+ +-------+---+---+ +---+---+ | | | +---+---+ documented in this encounter"
--- OUTSIDE RECORDS SUMMARY | ~2019-10-30 | XMS | Encounter Summary ---
Demographics + + + | Address | [address] | | | [place] [address] | + + + | Home Phone [...] | | | | | [place] [address] | | + + + + + | Ab Romykia | ECON | Unknown | | + + + + + Care Team Providers + +------+ + | Care Stock Patcher Name | Role | Phone | + [...] + | 12/08/ | Refill | [facility] | Pj Abdi, | Medication Refill | | 2017 | | MEDICINE [place] | [address] | | | | | [address] | [place] | | | | | [place] | [address] | | | | | [address] | | | | | | [phone] | | | +--------+--------+ + + + [...]
--- OUTSIDE RECORDS SUMMARY | ~2019-10-30 | XMS | Encounter Summary ---
Demographics + + + | Address | [address] | | | [place] [address] | + + + | Home Phone [...] | | | | | [place] [address] | | + + + + + | Ab Romykia | ECON | Unknown | | + + + + + Care Team Providers + +------+ + | Care Ndt Inspector Name | Role | Phone | [...] + + | 07/12/ | Telephone | [facility] [place] | [place] | No Show | | 2020 | | [place] | J, PT [address] | | | | [address] | [address] [place] | | | | | [place] | [address] | | | | | [address] | | | | | | [phone] | | | +--------+ + + + [...]
--- OUTSIDE RECORDS SUMMARY | ~2019-10-30 | XMS | Encounter Summary ---
Demographics + + + | Address | [address] | | | [place] [address] | + + + | Home Phone | | + + + | Preferred Language | Unknown | + + + | Marital Status | Single | + + + | Hindu Affiliation | 1013 | + + + | Race | Unknown | + + + | Ethnic Group | Unknown | + + + Author + + + | Author | [facility] | | | and Johnana | + + + | Organization | [facility] | | | [...] | | | | | [place] [address] | | + + + + + | Ab Romykia | ECON | Unknown | | + + + + + Care Team Providers + +------+ + | Care Char Belt Operator Name | Role | Phone | + +------+ + | Pj Abdi MD | PCP | | + +------+ + Reason for Visit + + + | Reason | Comments | + + + | Left Without Being | | | Seen | | + + + Encounter Details +--------+---------+ + + + | Date | Type | Department | Care Team | Description | +--------+---------+ + + + | 11/11/ | Office | [facility] | Alessandra Mercedes | Patient left without | | 2017 | Visit | [facility] | Berkley Yarbrough [address] | being seen (Primary | | | | [address] | [address] [place] | Dx) | | | | [place] | [place] [address] | | | | | [address] | [phone] | | | | | [phone] | | | +--------+---------+ + + + [...] documented as of this encounter Progress Notes Alessandra Mercedes PharmD - 11/11/2016 1:00 PM PDTThe patient left the office before the visit was started. Pt left at 1257, and appointment time was set for 1300. documented in this encounter Plan of Treatment Not on filedocumented as of this encounter Visit Diagnoses + + | Diagnosis | + + | Patient left without being seen - Primary Surgical or other procedure not carried out | | because of patient's decision | + + documented in this encounter"
--- OUTSIDE RECORDS SUMMARY | ~2019-10-30 | XMS | Encounter Summary ---
Demographics + + + | Address | [address] | | | [place] [address] | + + + | Home Phone [...] | | | | | [place] [address] | | + + + + + | Ab Romykia | ECON | Unknown | | + + + + + Care Team Providers + +------+ + | Care Profile Stitching Machine Operator Name | Role | [...] | +--------+ + + + + | 09/08/ | Telephone | [facility] | Pj Abdi, | Appointment | | 2019 | | MEDICINE [place] | [address] | | | | | [address] | [place] | | | | | [place] | [address] | | | | | [address] | | | | | | [phone] | | | +--------+ + + + [...]
--- OUTSIDE RECORDS SUMMARY | ~2019-10-30 | XMS | Encounter Summary ---
Demographics + + + | Address | [address] | | | [place] [address] | + + + | Home Phone [...] | | | | | [place] [address] | | + + + + + | Ab Romykia | ECON | Unknown | | + + + + + Care Team Providers + +------+ + | Care Windows Systems Architect Name | Role | Phone | + +------+ + PCP | Unavailable | + +------+ + Encounter Details +--------+ + + + + | Date | Type | Department | Care Team | Description | +--------+ + + + + | 02/26/ | Hospital [facility] | Jarrell Rajiv Aleman, | | | 2008 | Encounter | MED CTR EMERGENCY | MD [address] | | | | | CENTER [address] | [facility] [place] | | | | | [place], [place] | [place] [address] | | | | | [address] | [phone] | | | | | [phone] | | | +--------+ + + + [...]
--- OUTSIDE RECORDS SUMMARY | ~2019-10-30 | XMS | Encounter Summary ---
Demographics + + + | Address | [address] | | | [place] [address] | + + + | Home Phone | | + + + | Preferred Language | Unknown | + + + | Marital Status | Single | + + + | Mosque Affiliation | 1013 | + + + [...] | | | | | [place] [address] | | + + + + + | Ab Romykia | ECON | Unknown | | + + + + + Care Team Providers + +------+ + | Care Care Nurse Rn Name | Role | Phone | [...] + | 10/23/ | Telephone | [facility] | Sophie Carrillo, | Medication | | 2019 | | MEDIC[facility] [place] | PharmD [address] | Management | | | | [address] | [facility], | | | | | [place] | [place] [address] | | | | | [address] | [phone] | | | | | [phone] | | | +--------+ + + + [...]
--- OUTSIDE RECORDS SUMMARY | ~2019-10-30 | XMS | Encounter Summary ---
Demographics + + + | Address | [address] | | | [place] [address] | + + + | Home Phone [...] | | | | | [place] [address] | | + + + + + | Ab Romykia | ECON | Unknown | | + + + + + Care Team Providers + +------+ + | Care Aviation Maintenance Instructor Name | Role | Phone | [...] Description | +--------+--------+ + + + | 03/14/ | Refill | [facility] | Pj Abdi, | Medication Refill | | 2016 | | MEDICINE [place] | [address] | | | | | [address] | [place] | | | | | [place] | [address] | | | | | [address] | | | | | | [phone] | | | +--------+--------+ + + + [...]
--- OUTSIDE RECORDS SUMMARY | ~2019-10-30 | XMS | Encounter Summary ---
Demographics + + + | Address | [address] | | | [place] [address] | + + + | Home Phone [...] | | | | | [place] [address] | | + + + + + | Ab Romykia | ECON | Unknown | | + + + + + Care Team Providers + +------+ + | Care Track Patrol Name | Role | Phone | + +------+ + | No Physician | PCP | Unavailable | + +------+ + Reason for Visit + + + | Reason | Comments | + + + | Back Injury | | + + + Encounter Details +--------+---------+ + + + | Date | Type | Department | Care Team | Description | +--------+---------+ + + + | 03/28/ | Office | [facility] | Melly Keating | Thoracic myofascial | | 2015 | Visit | [facility] | MD Esther [address] | strain, initial | | | | [address] [address] [place] | encounter (Primary | | | | [address] [place] | [place] [address] | Dx) | | | | [place] | [phone] | | | | | [address] | | | | | | [phone] | | | +--------+---------+ + + + [...] + + + | Blood Pressure | 102/60 | 03/28/2015 10:32 AM | | | | | PST | | + + + + + | Pulse | 88 | 03/28/2015 10:32 AM | | | | | PST | | + + + + + | Temperature | 36.7 C (98 F) | 03/28/2015 10:32 AM | | | | | PST | | + + + + + | Respiratory Rate | 16 | 03/28/2015 10:32 AM | | | | | PST | | + + + + + | Oxygen Saturation | - | - | | + + + + + | Inhaled Oxygen | - | - | | | Concentration | | | | + + + + + | Weight | 54.4 kg (120 lb) | 03/28/2015 10:32 AM | | | | | PST | | + + + + + | Height | 162.6 cm (5' 4") | 03/28/2015 10:32 AM | | | | | PST | | + + + + + | Body Mass Index | 20.6 | 03/28/2015 10:32 AM | | | | | PST | | + + + + + documented in this encounter Progress Notes Melly Keating MD - 03/28/2015 2:44 PM PSTEmployer: [employer] Guarantor: [employer] Date of injury: 03/14/15 Claim number: [id number] Chief complaint: Follow-up back injury Subjective: 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 Pain is localized to the mid back, at about the level of her bra strap. There is no radiation of pain. She was seen and evalu ated in the emergency department, x-rays were obtained and reported to be negative. She was given a prescription for a muscle relaxant and placed on light duty, being referred here fo r continued care. Since that time she notes only a very mild dull ache in that area. She n otes no pain with breathing or coughing in his had no shortness of breath. No fever or chil ls or cough. No numbness, tingling, or weakness of the extremities and no radiation of pain into the arms or hands, legs or feet. Overall has been doing well and improving. She did not injure herself elsewhere with this incident. States she has a history of scoliosis and has some chronic low back pain but is never had any history of prior injury or trauma to the upper back. Past medical history, past surgical history, family history, social history, medications, a llergies reviewed Review of systems: 13 point review of systems reviewed, positive for excessive thirst, easy bruising, abdomina l pain, and back pain. Otherwise ROS is As per HPI Objective: Vital signs as noted, nursing notes reviewed. Fsseiey-ywqi-hpfvjnswv, well-nourished, in no apparent distress, pleasant and cooperative. Cardiovascular-regular rate rhythm without murmur rub or gallop. Lungs-clear to auscultation bilaterally. Abdomen-soft, no masses or hepatosplenomegaly. Nontender. Back-normal to inspection. No paraspinous muscle spasticity. No vertebral point tendernes s, crepitus, or step-off. No tender points elicited with palpation. No CVA tenderness with percussion. Full range of motion without pain or limitation. Neuro-Motor strength 5/5 bilat upper and lower extremities DTR's- biceps, triceps, brachial radialis patellar and ankle - 2+/4 bilat Neg SLR from a supine position bilat Normal toe/heel walk Normal squat Gait steady and symmetric Sensation grossly intact to light touch bilat upper and lower extremities. Imaging/diagnostics: None indicated this visit Pending interventions: Continue conservative management. Assessment: 1. Thoracic strain Plan: Continue symptomatic treatment. Return to regular duty. Follow-up in 3 weeks to recheck donta arnulfoelisa, anticipate claims closure at that time pending no interim developments. Return kushal ner for acute worsening other concerns. She voices understanding and agreement. E: Regular duty R: None Impairment undetermined at this point in time, based on current objective findings it is no t an anticipated consequence of this injury however patient has not yet reached MMI status. This note was dictated using [employer] voice recognition software. Occasional wrong- word or sound-alike substitutions may have occurred due to the inherent limitations of voice recogni tion software. Please read the chart carefully and recognize, using context, where these franco bstitutions have occurred. documented in th is encounter Plan of Treatment Not on filedocumented as of this encounter Visit Diagnoses + + | Diagnosis | + + | Thoracic myofascial strain, initial encounter - Primary | + + documented in this encounter
--- OUTSIDE RECORDS SUMMARY | ~2019-10-30 | XMS | Encounter Summary ---
Demographics + + + | Address | [address] | | | [place] [address] | + + + | Home Phone [...] | | | | | [place] [address] | | + + + + + | Ab Romykia | ECON | Unknown | | + + + + + Care Team Providers + +------+ + | Care Laundry Manager Name | Role | Phone | [...] (Primary Dx); Work | | | | [address] | [address] | related injury | | | | [phone] | | | +--------+---------+ + + + [...] the next 2 days and may resume Private[employer] activity on April 09, with restrictions consisting [...]
--- OUTSIDE RECORDS SUMMARY | ~2019-10-30 | XMS | Encounter Summary ---
Demographics + + + | Address | [address] | | | [place] [address] | + + + | Home Phone [...] + + + | Author | [facility] | | | and Johnana | + + + | Organization | [facility] | | [...] | | | | | [place] [address] | | + + + + + | Ab Romykia | ECON | Unknown | | + + + + + Care Team Providers + +------+ + | Care Maintenance Specialist Name | Role | Phone | [...] Description | +--------+--------+ + + + | 10/06/ | Refill | [facility] | Pj Abdi, | Medication Refill | | 2017 | | MEDICINE [place] | [address] | | | | | [address] | [place] | | | | | [place] | [address] | | | | | [address] | | | | | | [phone] | | | +--------+--------+ + + + [...]
--- OUTSIDE RECORDS SUMMARY | ~2019-10-30 | XMS | Encounter Summary ---
Demographics + + + | Address | [address] | | | [place] [address] | + + + | Home Phone [...] | | | | | [place] [address] | | + + + + + | Ab Romykia | ECON | Unknown | | + + + + + Care Team Providers + +------+ + | Care Profiling Machine Set Up Operator Name | Role | Phone | + +------+ + | Pj Abdi MD | PCP | | + +------+ + Reason for Visit +--------+ + | Reason | Comments | +--------+ + | Nausea | RM6; nausea x 2 weeks, diarrhea for 1st wek | +--------+ + Encounter Details +--------+---------+ + + + | Date | Type | Department | Care Team | Description | +--------+---------+ + + + | 11/22/ | Office | [facility] | Cyn Brizuela | Hematuria (Primary | | 2017 | Visit | CARE [address] | [address] | Dx); Nausea | | | | [place] | [address] | | | | | [address] | [facility], | | | | | [phone] | [place] [address] | | | | | | [phone] | | | | | | | [...] + + + | Blood Pressure | 125/65 | 11/22/2016 4:36 PM | | | | | PDT | | + + + + + | Pulse | 95 | 11/22/2016 4:36 PM | | | | | PDT | | + + + + + | Temperature | 37.2 C (98.9 F) | 11/22/2016 4:36 PM | | | | | PDT | | + + + + + | Respiratory Rate | 16 | 11/22/2016 4:36 PM | | | | | PDT | | + + + + + | Oxygen Saturation | 100% | 11/22/2016 4:36 PM | | | | | PDT | | + + + + + | Inhaled Oxygen | - | - | | | Concentration | | | | + + + + + | Weight | 59 kg (130 lb) | 11/22/2016 4:36 PM | | | | | PDT | | + + + + + | Height | 165.1 cm (5' 5") | 11/22/2016 4:36 PM | | | | | PDT | | + + + + + | Body Mass Index | 21.63 | 11/22/2016 4:36 PM | | | | | PDT | | + + + + + documented in this encounter Patient Instructions Patient Instructions Cyn Brizuela ARNP - 11/22/2016 5:01 PM PDT Hematuria: Possible Causes Many things can lead to blood in the urine (hematuria). The blood may be seen with the eye. Or it may only be seen when the urine is looked at under a microscope. Some of the most com mon causes of blood in the urine are listed below. Often, no cause for the blood can be foun d. This is called idiopathic hematuria. Kidney or bladder stones are collections of crystals. They form in the urine. Stones may be found anywhere in the urinary tract. But they form most often in the kidneys or bladder. In addition to blood in the urine, they can cause severe pain. BPH stands for benign prostatic hyperplasia. It is enlargement of the prostate gland. It happens as men age. BPH often causes problems with urination. It sometimes causes blood in the urine. A urinary tract infection (UTI) is due to bacteria growing in the urinary tract. It can cause blood in the urine. Other symptoms include burning or pain with urination. You may nee d to urinate often or urgently. You may also have a fever. Damage to the urinary tract may cause blood in the urine. This damage may be due to a bl ow or accident. It may also result from the use of a urinary catheter. Very hard exercise ma y sometimes irritate the urinary tract and cause bleeding. Cancer may occur anywhere in the urinary tract. A tumor may sometimes cause no symptoms other than bleeding. Other possible causes of bleeding include: Prostatitis (infection of the prostate gland) Taking anticoagulant medications Blockage in the urinary tract Disease or inflammation of the kidney Cystic diseases of the kidneys Sickle cell anemia Tumors of the urinary tract Date Last Reviewed: 02/01/201419992815-7864 [employer]. [address] [place] [address], [place] [address]. All righ ts reserved. This information is not intended as a substitute for professional medical care. Always follow your healthcare professional's instructions. How to Control Nausea and Vomiting Taken before meals, medicines can help ease nausea. Nausea is feeling that you need to throw up. Throwing up occurs when your body forces food that is in your stomach out through your mouth. Nausea and vomiting are symptoms that are ca used by many things. They can happen when a condition or disease, medicine, medical treatmen t, or a poisonous substance affects the area in your brain that controls vomiting. Some cond itions or diseases can cause nausea, abdominal pain or cramps, and vomiting. The symptoms ca n be mild and go away by themselves. Other symptoms can be serious. You will need to see you r healthcare provider for these. Nausea and vomiting are common. They can be caused by many things. These include: "Stomach flu" (gastroenteritis) Food poisoning Stomach pain (gastritis) Blockages They can also be caused by a head injury, an infection in the brain or inside the ear, or m igraines. Other common causes of nausea and vomiting include: Brain tumor Brain bruise Motion sickness Drugs. These include alcohol, pain medicines such as morphine, and cancer medicines. Toxins. These are poisonous things like plants or liquids that are swallowed by accident . Advanced types of cancer Movement problems (psychogenic problems) Extra pressure in the fluid that surrounds the brain and spinal cord (elevated intracran ial pressure) Nausea and vomiting are also common side effects of chemotherapy and radiation therapy. Sagar e effects happen when treatment changes some normal cells as well as cancer cells. In this c ase, the cells lining your stomach and the part of your brain that controls vomiting are aff ected. Other more serious causes of vomiting may be hard to find early in the illness. When to seek medical advice Call your healthcare provider right away if you have the following: Nausea or vomiting that lasts24 hours or more Trouble keeping fluids down Medicines can help Nausea or vomiting can often be prevented or controlled with medicines (antiemetics). Your doctor may give you antiemetics before or after treatment if you are getting chemotherapy or other medical treatments that cause nausea or vomiting. Eating tips If you have medicines to control nausea, take them before meals as directed. Avoid fatty or greasy foods while nauseated. Eat small meals slowly throughout the day. Ask someone to sit with you while you eat to keep you from thinking about feeling nausea meggan. Eat foods at room temperature or colder to avoid strong smells. Eat dry foods, such as toast, crackers, or pretzels. Also eat cool, light foods, such as applesauce, and bland foods, such as oatmeal or skinned chicken. Other ways to feel better Get a little fresh air. Take a short walk. Talk to a friend, listen to music, or watch TV. Take a few deep, slow breaths. Eat by candlelight or in surroundings that you find relaxing. Use a technique, such as guided imagery, to help you relax. Imagine yourself in a beauti ful, restful scene. Or daydream about the place you d most like to be. Date Last Reviewed: 05/28/201519998354-[address] [employer] [place] [address]. All righ ts reserved. This information is not intended as a substitute for professional medical care. Always follow your healthcare professional's instructions. documented in this encounter Progress Notes Cyn Brizuela ARNP - 11/22/2016 4:00 PM PDTFormatting of this note might be differ ent from the original. Subjective: Donna Camarena is a 21 y.o. female who presents to the clinic with a complaint of Na usea (RM6; nausea x 2 weeks, diarrhea for 1st wek) Emesis This is a new problem. Episode onset: 2 weeks ago. The problem has been resolved. Associate d symptoms include arthralgias (neck and back pain), a change in bowel habit (diarrhea for t he first week, now resolved), headaches, nausea (constantly), neck pain, urinary symptoms (d ifficulty going, lack of sensation, incontince) and vomiting (resovled 2 days ago). Pertinen t negatives include no abdominal pain, anorexia, chest pain, chills, congestion, coughing, d iaphoresis, fatigue, fever, joint swelling, myalgias, numbness, rash, sore throat, swollen g lands, vertigo, visual change or weakness. Exacerbated by: taking Hydrocodone. The treatment provided no relief. Allergies Allergen Reactions Dimetapp Cold-Allergy Hives and Rash Meloxicam Hives, Anxiety and Rash Medications: Patient Reported Taking Dosage cyclobenzaprine (FLEXERIL) 10 mg tablet (Taking) Take 1 tablet by mouth 3 times daily as needed for Muscle spasms. Number of times this order has been changed since signin [facility] [place] gabapentin (NEURONTIN) 300 mg capsule (Taking) 900 mg Daily. HYDROcodone-acetaminophen (NORCO) 5-325 mg per tablet (Taking) Take 1 tablet by mouth mai ry 6 hours as needed for Pain. hydrOXYzine hydrochloride (ATARAX) 25 mg tablet (Taking) Take 2 tablets by mouth every 6 hours as needed for Itching or Anxiety. Number of times this order has been changed since signin Order [facility] [place] naproxen (NAPROSYN) 500 mg tablet (Taking) Take 500 mg by mouth 2 times daily (with break fast & dinner). ondansetron (ZOFRAN ODT) 4 mg disintegrating tablet (Taking) Take 1 tablet by mouth every 8 hours as needed for Nausea. Number of times this order has been changed since signin [facility] [place] ondansetron (ZOFRAN ODT) 4 mg disintegrating tablet (Taking/Discontinued) Take 4 mg by mo uth every 8 hours as needed for Nausea. propranolol (INDERAL) 10 mg tablet (Taking) Take 1 tablet by mouth 2 times daily. Number of times this order has been changed since signin Order [facility] [place] Past Medical History She has a past [...] 2 Years of education: G.E.D. Occupational History [employer] UNEMPLOYED Social History Main Topics Smoking status: Current Every Day Smoker Packs/day: 0.50 Years: 7.00 Types: Cigarettes Start date: 09/17/2009 Smokeless tobacco: Never Used Alcohol use 0.0 oz/week Comment: rarely Drug use: No Sexual activity: Yes Partners: Male control/ protection: Yes Comment: Norplant Other Topics Concern None Social History Narrative None Review of Systems Constitutional: Negative for chills, diaphoresis, fatigue and fever. HENT: Negative for congestion and sore throat. Respiratory: Negative for cough. Cardiovascular: Negative for chest pain. Gastrointestinal: Positive for change in bowel habit (diarrhea for the first week, now reso lved), nausea (constantly) and vomiting (resovled 2 days ago). Negative for abdominal pain a nd anorexia. Musculoskeletal: Positive for arthralgias (neck and back pain) and neck pain. Negative for joint swelling and myalgias. Skin: Negative for rash. Neurological: Positive for headaches. Negative for vertigo, weakness and numbness. Objective: Vitals: 11/22/16 1636 BP: 125/65 Pulse: 95 Resp: 16 Temp: 37.2 C (98.9 F) TempSrc: Temporal SpO2: 100% Weight: 59 kg (130 lb) Height: 1.651 m (5' 5") No LMP recorded (lmp unknown). Physical Exam Constitutional: She is oriented to person, place, and time. Vital signs are normal. She marshal ears well-developed and well-nourished. She is cooperative. She does not appear ill. No dist ress. HENT: Head: Normocephalic and atraumatic. Right Ear: Hearing, tympanic membrane, external ear and ear canal normal. Tympanic membrane is not erythematous and not bulging. No middle ear effusion. Left Ear: Hearing, tympanic membrane, external ear and ear canal normal. Tympanic membrane is not erythematous and not bulging. No middle ear effusion. Nose: Nose normal. No mucosal edema. Mouth/Throat: Uvula is midline, oropharynx is clear and moist and mucous membranes are norm al. Eyes: Conjunctivae and lids are normal. Pupils are equal, round, and reactive to light. Neck: Trachea normal, normal range of motion, full passive range of motion without pain and phonation normal. Neck supple. No tracheal tenderness present. Carotid bruit is not present . No tracheal deviation present. No thyroid mass present. Cardiovascular: Normal rate, regular rhythm, S1 normal, S2 normal, normal heart sounds and intact distal pulses. Exam reveals no gallop and no friction rub. No murmur heard. Pulmonary/Chest: Effort normal and breath sounds normal. No respiratory distress. She has n o wheezes. She has no rhonchi. She has no rales. She exhibits no tenderness. Abdominal: Soft. Normal appearance and bowel sounds are normal. She exhibits no distension, no fluid wave, no abdominal bruit and no mass. There is no hepatosplenomegaly. There is no tenderness. There is no rigidity, no rebound, no guarding, no CVA tenderness, no tenderness at McBurney's point and negative Lenz's sign. Lymphadenopathy: She has no cervical adenopathy. Neurological: She is alert and oriented to person, place, and time. She has normal strength . She displays a negative Romberg sign. Skin: Skin is warm, dry and intact. No rash noted. She is not diaphoretic. Psychiatric: She has a normal mood and affect. Her speech is normal and behavior is normal. Cognition and memory are normal. Nursing note and vitals reviewed. Recent Results (from the past 24 hour(s)) POCT Test, Urine, QUAL Result Value Ref Range Test, Urine, POC Negative Negative Internal QC Acceptable Acceptable Specific [place], POC 1.010, 1.015, 1.020, 1.025 Lot Number [id number] Expiration Date 03/22/2018 POCT Urinalysis Dipstick Automated Result Value Ref Range Color, UA, POC Dark Yellow (A) Yellow, Light Yellow Clarity, UA, POC Hazy Glucose, UA, POC Negative Negative Bilirubin, UA, POC Negative Negative Ketones, UA, POC Negative Negative, 100 mg/dL Specific [place], UA, POC 1.010 1.001 - 1.030 Blood, UA, POC Large (A) Negative pH, UA, POC 6.0 5.0, 6.0, 7.0, 8.0, 5.5, 6.5, 7.5 Protein, UA, POC Negative Negative Urobilinogen, UA, POC 0.2 0.2, Negative, Normal, < 0.2 mg/dL, 1 mg/dL, < 0.2 E.U./dl, 1.0 E.U./dL, 0.2 mg/dL Nitrite, UA, POC Negative Negative Leukocyte Esterase, UA, POC Negative Negative RED SUB UA ICTOTEST Negative REMARK Assessment: 1. Hematuria Culture, Urine POCT Urinalysis Dipstick Automated POCT Test, Urine, QUAL 2. Nausea POCT Urinalysis Dipstick Automated POCT Test, Urine, QUAL Plan: 1. Nausea - POCT Urinalysis Dipstick Automated - POCT Test, Urine, QUAL 2. Hematuria - Culture, Urine - POCT Urinalysis Dipstick Automated - POCT Test, Urine, QUAL - Patient states this is not a new occurrence for her, she is regularly nauseated with her hydrocodone. - Asking for a note to go to back to work, given. - Will culture urine due to hx of frequent UTI's and finding of large blood in urine. - Zofran as needed for nausea. - Keep appointment with urologist for bladder issues. - If vomiting and diarrhea return, follow up with PCP. Diagnosis and plan including medications and side effects were discussed with the patient. Patient voices understanding of the plan and all questions were answered. Follow up with Primary Care Provider if not improving in 3-5 days. documented in this encounter Plan of Treatment Not on filedocumented as of this encounter Procedures + +--------+ + + + | Procedure Name | Priori | Date/Time | Associated Diagnosis | Comments | | | ty | | | | + +--------+ + + + | POCT URINALYSIS, | Routin | 11/22/2016 | Nausea Hematuria | Results for this | | AUTO WITH CONF | e | 4:54 PM | | procedure are in the | | | | PDT | | results section. | + +--------+ + + + | CULTURE, URINE | Routin | 11/22/2016 | Hematuria | Results for this | | | e | 4:50 PM | | procedure are in the | | | | PDT | | results section. | + +--------+ + + + | POCT TEST, | Routin | 11/22/2016 | Nausea Hematuria | Results for this | | URINE, QUAL | e | 4:45 PM | | procedure are in the | | | | PDT | | results section. | + +--------+ + + + documented in this encounter Results POCT Urinalysis Dipstick Automated (11/22/2016 4:54 PM PDT) + + + + + [...] + + + + | Clarity, | Hazy | | | | | UA, POC [...] | 1.010 | 1.001 - 1.030 | | | | [place], | | | | | | UA, POC | | | | | + + + + + + | Blood, UA, | Large (A) | Negative | | | | [...] + + + + | Bilirubin | Comment: Error. No | Negative | | | | Confirmatio | icitest performed | | | | | n by | | | | | | Ictotest, | | | | | | Urine | | | | | + + + + + + | Remark | | | | | + + + + + + + + | Specimen | + + | Urine | + + Culture, Urine (11/22/2016 4:50 PM PDT) + + + + + + | Component | Value | Ref Range | Performed | Pathologist | | | | | At | Signature | + + + + + + | Culture | >100,000 CFU/ml Mixed | | [facility] | | | | Gram Positive | | [facility] | | | | FloraComment: Suggests | | MEDICAL | | | | contamination with | | CENTER - | | | | urogenital or skin | | LABORATORY | | | | princess.No further work-up | | | | | | to follow. | | | | + + + [...] + + | [facility] [facility] | [address] | [place] | [phone] | | [facility] | | [address] | | | - LABORATORY | | | | + + + + + POCT Test, Urine, QUAL (11/22/2016 4:45 PM PDT) + + + + + [...] | 1.010, 1.015, | | | | [place], | | 1.020, 1.025 | | | | POC | | | | | + + + + + + | Lot Number | [id number] | | | | + + + + + + | Expiration | 03/22/2018 | | | | | Date | | | | | + + + + + + + + | Specimen | + + | Urine | + + documented in this encounter Visit Diagnoses + + | Diagnosis | + + | Hematuria - Primary Hematuria, unspecified | + + | Nausea Nausea alone | + + documented in this encounter
--- OUTSIDE RECORDS SUMMARY | ~2019-10-30 | XMS | Encounter Summary ---
Demographics + + + | Address | [address] | | | [place] [address] | + + + | Home Phone [...] | | | | | [place] [address] | | + + + + + | Ab Romykia | ECON | Unknown | | + + + + + Care Team Providers + +------+ + | Care Clip Wrapper Name | Role | Phone | + +------+ + PCP | Unavailable | + +------+ + Encounter Details +--------+ + + + + | Date | Type | Department | Care Team | Description | +--------+ + + + + | 08/11/ | Hospital | [facility] | [place], | | | 2008 | Encounter | [facility] | Mike Yarbrough MD [address] | | | | | CENTER [address] | [address] [place] | | | | | [place], [place] | [place] [address] | | | | | [address] | [phone] | | | | | [phone] | | | +--------+ + + + [...]
--- OUTSIDE RECORDS SUMMARY | ~2019-10-30 | XMS | Encounter Summary ---
Demographics + + + | Address | [address] | | | [place] [address] | + + + | Home Phone [...] | | | | | [place] [address] | | + + + + + | Absweta Bunch | ECON | Unknown | | + + + + + Care Team Providers + +------+ + | Care Dance Entertainer Name | Role | Phone | + [...] + + | 03/26/ | Emergency | [facility] | Eric Lozano, | Chronic low back | | 2017 | | [facility] | MD [address] | pain, unspecified | | | | CENTER [address] | [place] | back pain | | | | [place], [place] | [address] | laterality, with | | | | [address] | | sciatica presence | | | | [phone] | | unspecified (Primary | | | [...] sent through Care Everywhere.Back Pain, Reli eving (Faroese)Urinary Incontinence, Female (Adult) (Faroese)documented in this encounter Medications at Time of [...]
--- OUTSIDE RECORDS SUMMARY | ~2019-10-30 | XMS | Encounter Summary ---
Demographics + + + | Address | [address] | | | [place] [address] | + + + | Home Phone [...] | | | | | [place] [address] | | + + + + + | Ab Romykia | ECON | Unknown | | + + + + + Care Team Providers + +------+ + | Care Painter Plate Name | Role | Phone | + [...] | 11/14/ | Refill | [facility] | Sophie Carrillo, | Medication Refill | | 2018 | | MEDICINE [address] | PharmD [address] | | | | | [facility] | [facility], | | | | | [place] [address] | [place] [address] | | | | | [phone] | [phone] | | | | | | | [...]
--- OUTSIDE RECORDS SUMMARY | ~2019-10-30 | XMS | Encounter Summary ---
Demographics + + + | Address | [address] | | | [place] [address] | + + + | Home Phone | | + + + | Preferred Language | Unknown | + + + | Marital Status | Single | + + + | Religion Affiliation | 1013 | + + + [...] | | | | | [place] [address] | | + + + + + | Ab Romykia | ECON | Unknown | | + + + + + Care Team Providers + +------+ + | Care Investigator Utility Bill Complaints Name | Role | Phone | + +------+ + | Pj Abdi MD | PCP | | + +------+ + Reason for Visit + + + | Reason | Comments | + + + | Abdominal Pain | | + + + | Nausea | | + + + Encounter Details +--------+ + + + + | Date | Type | Department | Care Team | Description | +--------+ + + + + | 01/10/ | Emergency | [facility] | Andres Harding MD | Pelvic pain (Primary | | 2018 | | [facility] | [address] | Dx) | | | | CENTER [address] | [place] | | | | | [place] | [address] | | | | | [address] | | | | | | [phone] | | | +--------+ + + + [...] + + + | Blood Pressure | 127/75 | 01/10/2018 9:00 PM | | | | | PDT | | + + + + + | Pulse | 75 | 01/10/2018 8:56 PM | | | | | PDT | | + + + + + | Temperature | 37.5 C (99.5 F) | 01/10/2018 7:55 PM | | | | | PDT | | + + + + + | Respiratory Rate | 16 | 01/10/2018 7:55 PM | | | | | PDT | | + + + + + | Oxygen Saturation | 99% | 01/10/2018 8:56 PM | | | | | PDT | | + + + + + | Inhaled Oxygen | - | - | | | Concentration | | | | + + + + + | Weight | 54.4 kg (120 lb) | 01/10/2018 7:55 PM | | | | | PDT | | + + + + + | Height | 162.6 cm (5' 4") | 01/10/2018 7:55 PM | | | | | PDT | | + + + + + | Body Mass Index | 20.6 | 01/10/2018 7:55 PM | | | | | PDT | | + + + + + documented in this encounter Discharge Instructions Instructions Estefany Santos RN - 01/10/2018Please return for any worsening symptoms , fevers, chills, nausea and vomiting. Please follow-up with your stitching machine setter for further management of your pelvic pain. AttachmentsThe following attachments cannot be sent through Care Everywhere.Pelvic Pain, Un known Cause (Malaysian)documented in this encounter Medications at Time of [...] INFORMATION | CELSO | Routin | | 01/10/2018 7:39 PM | | EXCHANGE | | e | | PDT | + +------+--------+ + + documented as of this encounter Procedures + +--------+ + + + | Procedure Name | Priori | Date/Time | Associated Diagnosis | Comments | | | ty | | | | + +--------+ + + + | US PELVIS | STAT | 01/10/2018 | | Results for this | | TRANSABDOMINAL | | 9:21 PM | | procedure are in the | | | | PDT | | results section. | + +--------+ + + + | CBC WITH | STAT | 01/10/2018 | | Results for this | | DIFFERENTIAL | | 8:39 PM | | procedure are in the | | | | PDT | | results section. | + +--------+ + + + | COMPREHENSIVE | STAT | 01/10/2018 | | Results for this | | METABOLIC PANEL | | 8:39 PM | | procedure are in the | | | | PDT | | results section. | + +--------+ + + + | POCT URINALYSIS, | STAT | 01/10/2018 | | Results for this | | AUTO WITH CONF | | 8:06 PM | | procedure are in the | | | | PDT | | results section. | + +--------+ + + + | POCT TEST, | STAT | 01/10/2018 | | Results for this | | URINE, QUAL | | 8:06 PM | | procedure are in the | | | | PDT | | results section. | + +--------+ + + + | ED INFORMATION | Routin | 01/10/2018 | | | | EXCHANGE | e | 7:39 PM | | | | | | PDT | | | + +--------+ + + + +---+--------+ | | | | | Proced | | | ure | | | Note - | | | Thomas, | | | Lab In | | | | | | Hlseve | | | n - | | | 01/10/ | | | 2017 | | | 7:40 | | | PM PDT | | [...] | | | 8 | | | 19:36? | | | SHAH | | | LSH, | | | SABRIN | | | A | | | K?MRN: | | | | | | [id number] | | | [id number] | | | his | | | [...] | | | //secu | | | re.tohmas | | | ecarep | | | [email or web address] | | | m/raul | | | ent/a9 | | | [id number] | | | -[id number]- | | | [...] | | | EDENILSON | | | CUNHA | | | 2 0 | | [...] | | [place] - | | | info@ | | | ollect | | | ivemed | | | icalte | | | [email or web address] | | | | +---+--------+ documented in this encounter Results US Pelvis Transabdominal (01/10/2018 9:21 PM PDT) + + | Specimen | + + | | + + + + + | Narrative | Performed At | + + + | EXAM:US PELVIS TRANSABDOMINAL CLINICAL HISTORY: left pelvic | [facility] | | pain/ abd pain COMPARISON: Pelvic ultrasound dated December 11, 2017. | | | CT abdomen and pelvis dated December 28, 2017. FINDINGS: | | | Transabdominal only imaging of the pelvis. Uterus: The uterus is | | | unremarkable. The endometrium is homogeneous and measures 8 mm. | | | There are no focal myometrial abnormalities. The uterus measures | | | 7.5 x 4.5 x 2.9 cm. Ovaries and adnexa: The patient has had the | | | right ovary removed. The left ovary contains a 3 cm simple cyst. | | | The left ovary measures 3.7 x 3.9 x 3.3 cm. Color and spectral | | | Doppler flow are identified in the left ovary. There are no adnexal | | | masses. There is no significant free fluid. IMPRESSION - 3 | | | cm cyst in the left ovary. No sonographic evidence for ovarian | | | torsion. The preliminary findings were conveyed to the ordering | | | provider, by the press operator carbon blocks, immediately following the exam. | | | Dictated and Signed by: Nikko Nickerson MD Electronically signed: | | | 01/10/2018 10:28 PM | | + + + + + | Procedure Note | + + | Thomas, Rad Results In - 01/10/2018 10:31 PM PDT EXAM:US PELVIS TRANSABDOMINAL | | | | CLINICAL HISTORY: left pelvic pain/ abd pain | | | | COMPARISON: Pelvic ultrasound dated December 11, 2017. CT abdomen and pelvis dated | | December 28, 2017. | | | | FINDINGS: Transabdominal only imaging of the pelvis. | | | | Uterus: The uterus is unremarkable. The endometrium is homogeneous and measures | | 8 mm. There are no focal myometrial abnormalities. The uterus measures 7.5 x | | 4.5 x 2.9 cm. | | | | Ovaries and adnexa: The patient has had the right ovary removed. The left ovary | | contains a 3 cm simple cyst. The left ovary measures 3.7 x 3.9 x 3.3 cm. Color | | and spectral Doppler flow are identified in the left ovary. There are no | | adnexal masses. There is no significant free fluid. | | | | IMPRESSION - | | | | 3 cm cyst in the left ovary. | | | | No sonographic evidence for ovarian torsion. | | | | The preliminary findings were conveyed to the ordering provider, by the | | press operator carbon blocks, immediately following the exam. | | | | Dictated and Signed by: Nikko Nickerson MD | | Electronically signed: 01/10/2018 10:28 PM | + + + +---------+ + + | Performing | Address | City/State/Zipcode | Phone Number | | Organization | | | | + +---------+ + + | [facility] | | | | + +---------+ + + Comprehensive Metabolic Panel (01/10/2018 8:39 PM PDT) + + + + + [...] + + + + | K | 4.3 | 3.5 - 5.1 | [facility] | | | | | mmol/L | [facility] | | | | | | MEDICAL | | | | | | CENTER - | | | | | | LABORATORY | | + + + + + + | Cl | 105 | 98 - 109 mmol/L | [facility] | | | | | | [facility] | | | | | | [facility] | | | | | | CENTER - | | | | | | LABORATORY | | + + + + + + | CO2 | 28 | 24 - 31 mmol/L | [facility] [...] + + + + | BUN | 11 | 7 - 18 mg/dL | [facility] | | | | | | [facility] | | | | | | [facility]ICAL | | | | | | CENTER - | | | | | | LABORATORY | | + + + + + + | Creatinine | 0.66 | 0.60 - 1.30 | [facility] | | | | | mg/dL | [facility] | | | | | | MEDICAL | | | | | | CENTER - | | | | | | LABORATORY | | + + + + + + | eGFR if not | >60Comment: GLOMERULAR | >=60 | [facility] | | | | FILTRATION | mL/min/1.73m2 | [facility] | | | [facility]NAMAN[facility] | RATE,ESTIMATED | | MEDICAL | | | | mL/min/1.01p2Uhgk than | | CENTER - | | [...] + + + + | Calcium | 8.8 | 8.3 - 10.5 | [facility] | | | | | mg/dL | [facility] | | | | | | [facility] | | | | | | CENTER - | | | | | | LABORATORY | | + + + + + + | Albumin | 3.7 | 3.2 - 5.0 g/dL | [facility] [...] + + + + | Total | 5.9 (L) | 6.0 - 7.8 g/dL | [...] + + + + | ALT | 13Comment: This is an | 6 - 45 [...] + + + + | Alkaline | 63Comment: This is an | 40 - 110 U/L | [facility] | | | Phosphatase | appended report. These | | [facility] [...] + + + + | BUN/Creatin | 16.7 | | [facility] | | | ine [...] [address] | [place] | [phone] | | [facility] | | [address] | | | - LABORATORY | | | | + + + + + CBC with Differential (01/10/2018 8:39 PM PDT) + +---------+ + + + | Component | Value | Ref Range | Performed | Pathologist | | | | | At | Signature | + +---------+ + + + | WBC | 6.8 | 4.0 - 11.0 K/uL | [facility] | | | | | | [facility] | | | | | | MEDICAL | | | | | | CENTER - | | | | | | LABORATORY | | + +---------+ + + + | RBC | 3.75 | 3.70 - 5.20 | [facility] | | | | | M/uL | [facility] | | | | | | MEDICAL | | | | | | CENTER - | | | | | | LABORATORY | | + +---------+ + + + | Hemoglobin | 12.1 | 11.5 - 16.0 | [facility] | | | | | g/dL | [facility] | | | | | | MEDICAL | | | | | | CENTER - | | | | | | LABORATORY | | + +---------+ + + + | Hematocrit | 35.1 | 34.0 - 47.0 % | [facility] | | | | | | [facility] | | | | | | MEDICAL | | | | | | CENTER - | | | | | | LABORATORY | | + +---------+ + + + | MCV | 93.7 | 83.0 - 101.0 fL | [facility] | | | | | | [facility] | | | | | | MEDICAL | | | | | | CENTER - | | | | | | LABORATORY | | + +---------+ + + + | MCH | 32.2 | 28.0 - 35.0 pg | [facility] | | | | | | [facility] | | | | | | MEDICAL | | | | | | CENTER - | | | | | | LABORATORY | | + +---------+ + + + | MCHC | 34.3 | 32.0 - 36.0 | [facility] | | | | | g/dL | [facility] | | | | | | MEDICAL | | | | | | CENTER - | | | | | | LABORATORY | | + +---------+ + + + | RDW-CV | 14.2 | <15.0 % | [facility] | | | | | | [facility] | | | | | | MEDICAL | | | | | | CENTER - | | | | | | LABORATORY | | + +---------+ + + + | Platelet | 320 | 140 - 440 K/uL | [facility] | | | Count | | | [facility] | | | | | | MEDICAL | | | | | | CENTER - | | | | | | LABORATORY | | + +---------+ + + + | MPV | 7.2 | fL | [facility] | | | | | | [facility] | | | | | | [facility]ICAL | | | | | | CENTER - | | | | | | LABORATORY | | + +---------+ + + + | % | 68.9 | 45.0 - 82.0 % | [facility] | | | Neutrophils | | | [facility] | | | | | | MEDICAL | | | | | | CENTER - | | | | | | LABORATORY | | + +---------+ + + + | % | 22.6 | 20.0 - 45.0 % | [facility] | | | Lymphocytes | | | [facility] | | | | | | MEDICAL | | | | | | CENTER - | | | | | | LABORATORY | | + +---------+ + + + | % Monocytes | 3.9 (L) | 4.0 - 12.0 % | [facility] | | | | | | [facility] | | | | | | MEDICAL | | | | | | CENTER - | | | | | | LABORATORY | | + +---------+ + + + | % | 3.9 | 0.0 - 5.0 % | [facility] [...] +---------+ + + + | Absolute | 4.70 | 1.80 - 8.50 | [facility] | | | Neutrophils | | K/uL | [facility] | | | | | | MEDICAL | | | | | | CENTER - | | | | | | LABORATORY | | + +---------+ + + + | Absolute | 1.50 | 0.60 - 3.20 | [facility] | | | Lymphocytes | | K/uL | [facility] | | | | | | MEDICAL | | | | | | CENTER - | | | | | | LABORATORY | | + +---------+ + + + | Absolute | 0.30 | 0.00 - 1.00 | [facility] | | | Monocytes | | K/uL | [facility] | | | | | | MEDICAL | | | | | | CENTER - | | | | | | LABORATORY | | + +---------+ + + + | Absolute | 0.30 | 0.00 - 0.40 | [facility] | | | Eosinophils | | K/uL | [facility] | | | | | | MEDICAL | | | | | | CENTER - | | | | | | LABORATORY | | + +---------+ + + + | Absolute | 0.00 [...] ST[address] | [address] | [place] | [phone] | | [facility] | | [address] | | | - LABORATORY | | | | + + + + + POCT Test, Urine, QUAL (01/10/2018 8:06 PM PDT) + + + + + [...] | 1.010, 1.015, | | | | [place], | | 1.020, 1.025 | | | | POC | | | | | + + + + + + | Lot Number | [id number] | | | | + + + + + + | Expiration | 2019-05-01 | | | | | Date | | | | | + + + + + + + + | Specimen | + + | Urine | + + POCT Urinalysis Dipstick Automated (01/10/2018 8:06 PM PDT) + + + + + + | Component | Value | Ref Range | Performed | Pathologist | | | | | At | Signature | + + + + + + | Color, UA, | Yellow | Yellow, Light | | | | POC | | Yellow | | | + + + + + + | Clarity, | Cloudy | | | | | UA, [...] 1.001 - 1.030 | | | | [place], | | | | | | UA, POC | | | | | + + + + + + | Blood, UA, | 2+ (A) | Negative | | | | [...] + | HYDROmorphone (DILAUDID) | Given | 01/11/20 | 0.5 mg | | Deltoid- | | injection 0.5 mg 0.5 mg, | | 18 8:32 | | | Right | | Intramuscular, ONCE, 01/10/18 | | PM PDT | | | | | at 2019, For 1 dose | | | | | | + +--------+ +--------+------+ + +---+---+ | | | +---+---+ + +-------+ +------+---+---+ | ondansetron (ZOFRAN ODT) | Given | 01/11/20 | 4 mg | | | | disintegrating tablet 4 mg 4 mg, | | 18 8:30 | | | | | Oral, ONCE, 01/10/18 at 2019, | | PM PDT | | | | | For 1 dose | | | | | | + +-------+ +------+---+---+ +---+---+ | | | +---+---+ documented in this encounter
--- OUTSIDE RECORDS SUMMARY | ~2019-10-30 | XMS | Encounter Summary ---
Demographics + + + | Address | [address] | | | [place] [address] | + + + | Home Phone [...] | | | | | [place] [address] | | + + + + + | Ab Romykia | ECON | Unknown | | + + + + + Care Team Providers + +------+ + | Care Harbor Patrol Police Name | Role | Phone | + [...] + + | 06/05/ | Office | [facility] | Murray Domingo, | Thumb tendonitis | | 2020 | Visit | CARE [address] | MD [address] | (Primary Dx); | | | | [place] | [place] | Tendonitis of | | | | [address] | [address] | shoulder, left | | | | [phone] | | | +--------+---------+ + + + [...] and relieve pain. Pain medicines. Prescription or vxqt-jua-ucqrqzx pain medicines can help relieve pain an [...] get worse New symptoms Date Last Reviewed: 07/31/201519993885-5688 [employer] [place] [address]. All righ ts reserved. This information is [...] The hea lthcareprovider may also suggest taking swoz-ywh-szsefyn medicines such asibuprofen or n aproxen. These [...] way of daily life Date Last Reviewed: 10/21/201719995296-5944 [employer] [place] [address]. All righ ts reserved. This information is [...] This medicine is injected by a health care advocate. After your dose follow your doctor 's instructions for your care. Contact your finger lift operator regarding the use of this medicine in children. Special care may be needed. What side effects may I notice from receiving this medicine? Side effects that you should report to your doctor or health care advocate as soon as p ossible: allergic reactions [...] attention (report to your doctor or health care advocate if they continue or are bothersome): headache [...] if you have any of these conditions: [place]'s syndrome diabetes glaucoma heart disease high blood [...] this medicine? Visit your doctor or health care advocate for regular checks on your progress. If [...] pharmacist, or health care provider. Copyright 2019 [employer] documented in this encounter Progress Notes Murray [...] Procedure Laterality Date APPENDECTOMY 2011 Dr. Fernández; [facility] LAPAROSCOPY N/A 06/16/2015 Procedure: Diagnostic Laparoscopy laparoscopic ovarian drilling,right; Surgeon: Nikko Sánchez DO; Location: [facility] MAIN OR OVARIAN CYST REMOVAL 2011 Dr. Fernández; [facility] OVARIAN CYST REMOVAL 2013 Dr. Fernández; [facility] SALPINGO-OOPHORECTOMY Right 03/11/2016 Procedure: Laparoscopic R.S.O.; Surgeon: Nikko Sánchez DO; Location: [facility] MAIN OR STEFANO AND BSO Right 02/2016 [...]
--- OUTSIDE RECORDS SUMMARY | ~2019-10-30 | XMS | Encounter Summary ---
Demographics + + + | Address | [address] | | | [place] [address] | + + + | Home Phone [...] | | | | | [place] [address] | | + + + + + | Ab Romykia | ECON | Unknown | | + + + + + Care Team Providers + +------+ + | Care Automation Test Developer Name | Role | Phone | [...] + | 01/12/ | Refill | [facility] | Pj Abdi, | Medication Refill | | 2016 | | MEDIC[facility] [place] | [address] | | | | | [address] | [place] | | | | | [place] | [address] | | | | | [address] | | | | | | [phone] | | | +--------+--------+ + + + [...]
--- OUTSIDE RECORDS SUMMARY | ~2019-10-30 | XMS | Encounter Summary ---
Demographics + + + | Address | [address] | | | [place] [address] | + + + | Home Phone [...] | | | | | [place] [address] | | + + + + + | Ab Romykia | ECON | Unknown | | + + + + + Care Team Providers + +------+ + | Care Fertilizing Machine Operator Name | Role | Phone [...] [place] | | | | | | [address] | | | | | | [phone] | | | +--------+ + + + [...]
--- OUTSIDE RECORDS SUMMARY | ~2019-10-30 | XMS | Encounter Summary ---
Demographics + + + | Address | [address] | | | [place] [address] | + + + | Home Phone [...] | | | | | [place] [address] | | + + + + + | Ab Romykia | ECON | Unknown | | + + + + + Care Team Providers + +------+ + | Care Solderer Assembler Name | Role | Phone | [...] + | 01/04/ | Refill | [facility] | Pj Abdi, | Medication Refill | | 2016 | | MEDICINE [place] | [address] | | | | | [address] | [place] | | | | | [place] | [address] | | | | | [address] | | | | | | [phone] | | | +--------+--------+ + + + [...]
--- OUTSIDE RECORDS SUMMARY | ~2019-10-30 | XMS | Encounter Summary ---
Demographics + + + | Address | [address] | | | [place] [address] | + + + | Home Phone [...] | | | | | [place] [address] | | + + + + + | Ab Romykia | ECON | Unknown | | + + + + + Care Team Providers + +------+ + | Care Power Manager Name | Role | Phone | + +------+ + PCP | Unavailable | + +------+ + Encounter Details +--------+ + + + + | Date | Type | Department | Care Team | Description | +--------+ + + + + | 09/10/ | Hospital [facility] | | | [facility] | En[facility] | [facility] | | | | | | CENTER [address] | | | | | | [place], [place] | | | | | | [address] | | | | | | [phone] | | | +--------+ + + + [...]
--- OUTSIDE RECORDS SUMMARY | ~2019-10-30 | XMS | Encounter Summary ---
Demographics + + + | Address | [address] | | | [place] [address] | + + + | Home Phone [...] | | | | | [place] [address] | | + + + + + | Ab Romykia | ECON | Unknown | | + + + + + Care Team Providers + +------+ + | Care Pneumatic Tube Operator Name | Role | Phone | [...] + + | 03/29/ | Telephone | [facility] | Pj Abdi, | ED Follow-up; Back | | 2016 | | [facility] | [address] | Pain; Incontinence | | | | [address] | [place] | | | | | [place] | [address] | | | | | [address] | | | | | | [phone] | | | +--------+ + + + [...]
--- OUTSIDE RECORDS SUMMARY | ~2019-10-30 | XMS | Encounter Summary ---
Demographics + + + | Address | [address] | | | [place] [address] | + + + | Home Phone [...] | | | | | [place] [address] | | + + + + + | Ab Romykia | ECON | Unknown | | + + + + + Care Team Providers + +------+ + | Care Brewing Technician Name | Role | Phone | + +------+ + | Pj Abdi MD | PCP | | + +------+ + Reason for Visit +---------+ + | Reason | Comments | +---------+ + | No Show | Pain Contracts Due | +---------+ + Encounter Details +--------+ + + + + | Date | Type | Department | Care Team | Description | +--------+ + + + + | 12/07/ | Telephone | [facility] | Alessandra Mercedes | No Show (Pain | | 2016 | | MEDIC[facility] [place] | A, PharmD [address] | Contracts Due) | | | | [address] | [address] [facility] | | | | | [place], [place] | [place] [address] | | | | | [address] | [phone] | | | | | [phone] | | | +--------+ + + + [...]
--- OUTSIDE RECORDS SUMMARY | ~2019-10-30 | XMS | Encounter Summary ---
Demographics + + + | Address | [address] | | | [place] [address] | + + + | Home Phone | | + + + | Preferred Language | Unknown | + + + | Marital Status | Single | + + + | Restorationism Affiliation | 1013 | + + + | Race | Unknown | + + + | Ethnic Group | Unknown | + + + Author + + + | Author | [facility] | | | and Johnana | + + + | Organization | [facility] | | | [...] | | | | | [place] [address] | | + + + + + | Ab Romykia | ECON | Unknown | | + + + + + Care Team Providers + +------+ + | Care Customer Service Sales Associate Name | Role | Phone | [...] + + | 11/02/ | Office | [facility] | Pj Abdi, | Generalized anxiety | | 2017 | Visit | [facility]IC[facility] [place] | [address] | disorder (Primary | | | | [address] | [place] | Dx); Panic disorder; | | | | [place] | [address] | Moderate episode of | | | | [address] | | recurrent major | | | | [phone] | | depressive disorder | | | [...] AM PDTCrisis HelpLine ) Please go to [facility] ED for psych evaluation in the event [...] was being seen by Cas Rhodes at [facility] She has 2 sons She reports she [...] feels like this increased anxiety started in [facility]. She feels like her anxiety became very bad when she had to leave her youngest son home while taking classes in [employer]. She reports her childhood was not a healthy situation. Her mother was not really a stable factor and did not know her father. She reports her gran dparents raised her. She reports her living situation is tense with her marta's family. She lives with marta's mother, grandmother, and brother. 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 Onset: Ongoing She has [...] tried PT previously and discussed injections with grinding machine operator. Sh ajay reports her insurance does not [...] has been changed since signin Order [facility] [place] cyclobenzaprine (FLEXERIL) 10 mg tablet (Taking) Take 1 tablet by mouth 3 times daily as needed for Muscle spasms. Number of times this order has been changed since signin [facility] [place] cyclobenzaprine (FLEXERIL) 10 mg tablet (Taking/Discontinued) Take [...] has been changed since signin [facility] [place] hydrOXYzine hydrochloride (ATARAX) 25 mg tablet (Taking/Discontinued) [...] has been changed since signin Order [facility] [place] Past Medical History She has a past [...] 2 Years of education: G.E.D. 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 Generalized Anxiety Disorder 2. Panic [...] safety. Provided phone number for Crisis HelpLine ) and informed to go to [facility] ED for psych evaluation in the event [...] prescription refills on state web site ( [place] PDMP) - Rest with modified activities - ice/heat as directed -. Antiinflamitory pain medications as directed Reviewed that I will not write for pain medication today because I will need to verify with PDMP. Also reviewed that chronic use of opioids will be avoided for half-way control of he r pain. Some leeway [...] a pain contract as requi red by [place] state law. - Discussed with the patient [...]
--- OUTSIDE RECORDS SUMMARY | ~2019-10-30 | XMS | Encounter Summary ---
Demographics + + + | Address | [address] | | | [place] [address] | + + + | Home Phone [...] | | | | | [place] [address] | | + + + + + | Ab Romykia | ECON | Unknown | | + + + + + Care Team Providers + +------+ + | Care Patient Care Specialist Name | Role | Phone | [...] + | 12/28/ | Telephone | [facility] | Pj Abdi, | ED Follow-up | | 2018 | | MEDICINE [place] | [address] | | | | | [address] | [place] | | | | | [place] | [address] | | | | | [address] | | | | | | [phone] | | | +--------+ + + + [...]
--- OUTSIDE RECORDS SUMMARY | ~2019-10-30 | XMS | Encounter Summary ---
Demographics + + + | Address | [address] | | | [place] [address] | + + + | Home Phone | | + + + | Preferred Language | Unknown | + + + | Marital Status | Single | + + + | Islam Affiliation | 1013 | + + + | Race | Unknown | + + + | Ethnic Group | Unknown | + + + Author + + + | Author | [facility] | | | and Johnana | + + + | Organization | [facility] | | | [...] | | | | | [place] [address] | | + + + + + | Ab Romykia | ECON | Unknown | | + + + + + Care Team Providers + +------+ + | Care Welding Machine Operator Helper Arc Name | Role | Phone | + +------+ + PCP | Unavailable | + +------+ + Encounter Details +--------+ + + + + | Date | Type | Department | Care Team | Description | +--------+ + + + + | 10/22/ | Hospital | [facility] | | | | 2009 | Encounter | [facility] | | | | | | CENTER [address] | | | | | | [place], [place] | | | | | | [address] | | | | | | [phone] | | | +--------+ + + + [...]
--- OUTSIDE RECORDS SUMMARY | ~2019-10-30 | XMS | Encounter Summary ---
Demographics + + + | Address | [address] | | | [place] [address] | + + + | Home Phone [...] | | | | | [place] [address] | | + + + + + | Ab Romykia | ECON | Unknown | | + + + + + Care Team Providers + +------+ + | Care Surgery Specialist Name | Role | Phone | [...] [phone] | | | | | | [place], [place] | | | | | | [address] | | | | | | [phone] | | | +--------+ + + + [...]
--- OUTSIDE RECORDS SUMMARY | ~2019-10-30 | XMS | Encounter Summary ---
Demographics + + + | Address | [address] | | | [place] [address] | + + + | Home Phone [...] | | | | | [place] [address] | | + + + + + | Ab Romykia | ECON | Unknown | | + + + + + Care Team Providers + +------+ + | Care Alarm Mechanism Adjuster Name | Role | Phone | + [...] + + | 01/11/ | Office | [facility] | Pj Abdi, | Moderate episode of | | 2017 | Visit | [facility] [place] | [address] | recurrent major | | | | [address] | [place] | depressive disorder | | | | [place] | [address] | ([facility]) (Primary Dx); | | | | [address] | | Generalized anxiety | | | | [phone] | | disorder; Insomnia, | | | [...] normally it is c ontrolled with her [place], but feels that recently it has been [...] has been changed since signin [facility] clindamycin (CLEOCIN) 300 MG capsule (Taking/Discontinued) Take 1 capsule by mouth 3 time s daily for 10 days. Number of times this order has been changed since signin [facility] cyclobenzaprine (FLEXERIL) 10 mg tablet (Taking) Take 1 tablet by mouth 3 times daily as needed for Muscle spasms. Number of times this order has been changed since signin [facility] gabapentin (NEURONTIN) 300 mg capsule (Taking) Take 3 capsules by mouth Daily. Number of times this order has been changed since signin [facility] HYDROcodone-acetaminophen (NORCO) 5-325 mg per tablet Starting on 01/14/2017. Take 1 tablet by mouth every 6 hours as needed for Pain (for severe break through pain). Number of times this order has been changed since signin [facility] [place] HYDROcodone-acetaminophen (NORCO) 5-325 mg per tablet (Taking/Discontinued) Take 1 tablet by mouth every 6 hours as needed for Pain (for severe break through pain). Number of times this order has been changed since signin [facility] [place] hydrOXYzine hydrochloride (ATARAX) 25 mg tablet (Taking) Take 2 tablets by mouth every 6 hours as needed for Itching or Anxiety. Number of times this order has been changed since signin [facility] naproxen (NAPROSYN) 500 mg tablet (Taking) Take 1 tablet by mouth 2 times daily (with rashida akfast & dinner). Number of times this order has been changed since signin [facility] ondansetron (ZOFRAN ODT) 4 mg disintegrating tablet (Taking) Take 1 tablet by mouth every 8 hours as needed for Nausea. Number of times this order has been changed since signin [facility] [place] ondansetron (ZOFRAN) 4 mg tablet (Taking/Discontinued) propranolol (INDERAL) 10 mg tablet (Taking) Take 1 tablet by mouth 2 times daily. Number of times this order has been changed since signin [facility] [place] venlafaxine (EFFEXOR XR) 75 mg 24 hr capsule (Taking) Take 1 capsule by mouth Daily. Number of times this order has been changed since signin Order [facility] [place] Past Medical History She has a past [...] 2 Years of education: G.E.D. Occupational History [employer] UNEMPLOYED Social History Main Topics [...] Negative Negative Internal QC Acceptable Acceptable Specific [place], POC 1.010, 1.015, 1.020, 1.025 Lot Number [...] x 10 days, b ut did not pickling solution maker her prescription. Patient seen today for same complaint. Re-ordered Clind amycin for patient to pickling solution maker today, which she affirms that she will. [...] but feels it is controlle d with [place]. Pain contract in place and current. Will [...] on her legs. She wa s in care home recently and cut herself shaving the [...] 2. Furuncle POCT Test, Urine, QUAL recent care home so concern for MRSA Clindamycin 300 [...] has been changed since signin [facility] [place] clindamycin (CLEOCIN) 300 MG capsule (Taking/Discontinued) Take 1 capsule by mouth 3 time s daily for 10 days. Number of times this order has been changed since signin [facility] [place] cyclobenzaprine (FLEXERIL) 10 mg tablet (Taking) Take 1 tablet by mouth 3 times daily as needed for Muscle spasms. Number of times this order has been changed since signin [facility] [place] gabapentin (NEURONTIN) 300 mg capsule (Taking) Take 3 capsules by mouth Daily. Number of times this order has been changed since signin [facility] [place] HYDROcodone-acetaminophen (NORCO) 5-325 mg per tablet Starting on 01/14/2017. Take 1 tablet by mouth every 6 hours as needed for Pain (for severe break through pain). Number of times this order has been changed since signin [facility] [place] HYDROcodone-acetaminophen (NORCO) 5-325 mg per tablet (Taking/Discontinued) Take 1 tablet by mouth every 6 hours as needed for Pain (for severe break through pain). Number of times this order has been changed since signin Order [facility] [place] hydrOXYzine hydrochloride (ATARAX) 25 mg tablet (Taking) Take 2 tablets by mouth every 6 hours as needed for Itching or Anxiety. Number of times this order has been changed since signin [facility] [place] naproxen (NAPROSYN) 500 mg tablet (Taking) Take 1 tablet by mouth 2 times daily (with rashida akfast & dinner). Number of times this order has been changed since signin [facility] ondansetron (ZOFRAN ODT) 4 mg disintegrating tablet (Taking) Take 1 tablet by mouth every 8 hours as needed for Nausea. Number of times this order has been changed since signin [facility] ondansetron (ZOFRAN) 4 mg tablet (Taking/Discontinued) propranolol (INDERAL) 10 mg tablet (Taking) Take 1 tablet by mouth 2 times daily. Number of times this order has been changed since signin [facility] venlafaxine (EFFEXOR XR) 75 mg 24 hr capsule (Taking) Take 1 capsule by mouth Daily. Number of times this order has been changed since signin Order [facility] [place] Past Medical History She has a past [...] 2 Years of education: G.E.D. Occupational History [employer] UNEMPLOYED Social History Main Topics Smoking [...] Score 6 (01/11/17 1000) (Printable questionnaires in [place]ese ) Interpretation of Total Score: 1-4 = [...] or Chronic Pain tab; printable questionnaires in [place]ese ) Interpretation of Total Score: 8-9 = [...] is aware that this will not be alf. UDS completed today. - HYDROcodone-acetaminophen (NORCO) 5-325 mg per tablet; Take 1 tablet by mouth every 6 roberto rs as needed for Pain (for severe break through pain). Dispense: 30 tablet; Refill: 0 - Drugs of Abuse, Screen, Urine Follow-up: Return in about 3 months (around 04/13/2017) for Anxious Depression, Insomnia (n ew med), Chronic Pain. I, Sammi Owen [facility], am acting as a scribe on behalf of, and in the presence of MD Sammi Ellis HORTICULTURAL THERAPIST 01/11/2017 I, Dr. Pj Abdi, personally performed [...] [address] | [place] | [phone] | | [facility] | | [address] | | | - LABORATORY | | [...]
--- OUTSIDE RECORDS SUMMARY | ~2019-10-30 | XMS | Encounter Summary ---
Demographics + + + | Address | [address] | | | [place] [address] | + + + | Home Phone [...] | | | | | [place] [address] | | + + + + + | Ab Romykia | ECON | Unknown | | + + + + + Care Team Providers + +------+ + | Care Predatory Animal Trapper Name | Role | Phone | + +------+ + PCP | Unavailable | + +------+ + Encounter Details +--------+ + + + + | Date | Type | Department | Care Team | Description | +--------+ + + + + | 05/29/ | Hospital | [facility] | [place], | | | 2009 | Encounter | [facility] EM[facility] | Mike Yarbrough MD [address] | | | | | CENTER [address] | [address] [place] | | | | | [place], [place] | [place] [address] | | | | | [address] | [phone] | | | | | [phone] | | | +--------+ + + + [...]
--- OUTSIDE RECORDS SUMMARY | ~2019-10-30 | XMS | Encounter Summary ---
Demographics + + + | Address | [address] | | | [place] [address] | + + + | Home Phone [...] | | | | | [place] [address] | | + + + + + | Ab Romykia | ECON | Unknown | | + + + + + Care Team Providers + +------+ + | Care Dairy Clerk Name | Role | Phone | [...] + + | 11/11/ | Office | [facility] | Alessandra [place] | Patient left without | | 2017 | Visit | [facility] | Berkley Yarbrough [address] | being seen (Primary | | | | [address] | [address] [place] | Dx) | | | | [place] | [place] [address] | | | | | [address] | [phone] | | | | | [phone] | | | +--------+---------+ + + + [...]
--- OUTSIDE RECORDS SUMMARY | ~2019-10-30 | XMS | Encounter Summary ---
Demographics + + + | Address | [address] | | | [place] [address] | + + + | Home Phone [...] | | | | | [place] [address] | | + + + + + | Ab Romykia | ECON | Unknown | | + + + + + Care Team Providers + +------+ + | Care Player Development Manager Name | Role | Phone [...] + + | 05/08/ | Office | [facility] | Stas Enamorado | Viral syndrome | | 2018 | Visit | CARE [address] | [place] | (Primary Dx); | | | | [place] | [address] | Folliculitis | | | | [address] | [place] [address] | | | | | [phone] | [phone] | | | | | | | [...] you may be told to use an surf-sle-rrrcrhn antibiotic cream. Follo w all instructions when [...] but then comes back Date Last Reviewed: 03/23/201619995435-9133 [employer]. [address] [place] [address], [place] [address]. All righ ts reserved. This information is not intended as a substitute for professional medical care. Always follow your healthcare professional's instructions. documented in this encounter Progress Notes Stas Enamorado, SPEAKER WIRER - 05/08/2018 6:30 PM PSTFormatting of this [...] 05/08/2018 20:22 This note was dictated using [employer] voice recognition software. Occasional wrong- word or [...]
--- OUTSIDE RECORDS SUMMARY | ~2019-10-30 | XMS | Encounter Summary ---
Demographics + + + | Address | [address] | | | [place] [address] | + + + | Home Phone [...] + + + | Author | [facility] | | | and Johnana | + + + | Organization | [facility] | | [...] | | | | | [place] [address] | | + + + + + | Ab Romykia | ECON | Unknown | | + + + + + Care Team Providers + +------+ + | Care Supervisor Transferring And Boxing Name | Role | Phone | + +------+ + | jP Abdi MD | PCP | | + +------+ + Reason for Visit +---------+ + | Reason | Comments | +---------+ + | Results | | +---------+ + Encounter Details +--------+ + + + + | Date | Type | Department | Care Team | Description | +--------+ + + + + | 12/01/ | Telephone | [facility] | Pj Abdi, | Results | | 2017 | | MEDICINE [place] | [address] | | | | | [address] | [place] | | | | | [place] | [address] | | | | | [address] | | | | | | [phone] | | | +--------+ + + + [...]
--- OUTSIDE RECORDS SUMMARY | ~2019-10-30 | XMS | Encounter Summary ---
Demographics + + + | Address | [address] | | | [place] [address] | + + + | Home Phone [...] | | | | | [place] [address] | | + + + + + | Ab Romykia | ECON | Unknown | | + + + + + Care Team Providers + +------+ + | Care Tariff Counsel Name | Role | Phone | + +------+ + PCP | Unavailable | + +------+ + Encounter Details +--------+ + + + + | Date | Type | Department | Care Team | Description | +--------+ + + + + | 04/24/ | Hospital | [facility] | [place], | | | 2008 | Encounter | MED CTR EM[facility]ENCY | Mike Yarbrough MD [address] | | | | | CENTER [address] | [address] [place] | | | | | [place], [place] | [place] [address] | | | | | [address] | [phone] | | | | | [phone] | | | +--------+ + + + [...]
--- OUTSIDE RECORDS SUMMARY | ~2019-10-30 | XMS | Encounter Summary ---
Demographics + + + | Address | [address] | | | [place] [address] | + + + | Home Phone [...] | | | | | [place] [address] | | + + + + + | Ab Romykia | ECON | Unknown | | + + + + + Care Team Providers + +------+ + | Care Retail Client Solutions Analyst Name | Role | Phone | + +------+ + PCP | Unavailable | + +------+ + Encounter Details +--------+ + + + + | Date | Type | Department | Care Team | Description | +--------+ + + + + | 08/30/ | Hospital | [facility] | [place], | | | 2011 | Encounter | MED [facility] EM[facility]Y | Mike Yarbrough MD [address] | | | | | CENTER [address] | [address] [place] | | | | | [place], [place] | [place] [address] | | | | | [address] | [phone] | | | | | [phone] | | | +--------+ + + + [...] + | CBC WITH | Routin | 08/31/2011 | | Results for this | | DIFFERENTIAL | e | 10:34 PM | | procedure are in the | | | | PDT | | results section. | + +--------+ + + + | COMPREHENSIVE | Routin | 08/31/2011 | | Results for this | | METABOLIC PANEL | e | 10:34 PM | | procedure are in the | | | | PDT | | results section. | + +--------+ + + + documented in this encounter Results Comprehensive Metabolic Panel (08/31/2011 10:34 PM PDT) + + + + + + | Component | Value | Ref Range | Performed | Pathologist | | | | | At | Signature | + + + + + + | Glucose | 104 | 70 - 109 mg/dL | [facility] [...] + + + + | Alkaline | 76 | 40 - 110 IU/L | [facility] | | | Phosphatase | | | [facility] | | | | | | MEDICAL | | | | | | CENTER - | | | | | | LABORATORY | | + + + + + + | AST | 17 | 10 - 42 IU/L | [facility] | | | | | | [facility] | | | | | | MEDICAL | | | | | | CENTER - | | | | | | LABORATORY | | + + + + + + | ALT | 13 | 6 - 45 IU/L | [facility] | | | | | | [facility] | | | | | | MEDICAL | | | | | | CENTER - | | | | | | LABORATORY | | + + + + + + | Bilirubin | 0.4 | 0.2 - 1.0 mg/dL | [facility] | | | Total | | | [facility] | | | | | | MEDICAL | | | | | | CENTER - | | | | | | LABORATORY | | + + + + + + | Total | 6.0 | 6.0 - 7.8 gm/dL | [facility] | | | Protein | | | [facility] | | | | | | MEDICAL | | | | | | CENTER - | | | | | | LABORATORY | | + + + + + + | Albumin | 4.0 | 3.2 - 5.0 gm/dL | [facility] [...] | >60Comment: For | >60 mL/min/A | [facility] | | | GFR | -Americans, | [...] + + + + | BUN/Creatin | 11.1 (L) | 12 - 20 | [facility] | | | ine Ratio | | | [facility] | | | | | | MEDICAL | | | | | | CENTER - | | | | | | LABORATORY | | + + + + + + | Na | 137 | 136 - 149 mEq/L | [facility] | | | | | | [facility] | | | | | | MEDICAL | | | | | | CENTER - | | | | | | LABORATORY | | + + + + + + | K | 3.7 | 3.5 - 5.1 mEq/l | [facility] [...] + + + | Anion Gap | 11.7 | 6.0 - 17.0 | [facility] | [...] | [address] | [place], [place] | [phone] | | [facility] | | [address] | | | - LABORATORY | | | | + + + + + | [facility] | [address] | [place] | | | [facility] | | [address], [facility] | | | - LABORATORY | | | | + + + + + CBC with Differential (08/31/2011 10:34 PM PDT) + +-------+ + + + [...] +-------+ + + + | RBC | 3.90 | 3.70 - 5.20 | [facility] | | | | | M/uL | [facility] | | | | | | MEDICAL | | | | | | CENTER - | | | | | | LABORATORY | | + +-------+ + + + | Hemoglobin | 12.4 | 11.5 - 16.0 | [facility] | | | | | gm/dL | [facility] | | | | | | MEDICAL | | | | | | CENTER - | | | | | | LABORATORY | | + +-------+ + + + | Hematocrit | 36.5 | 34.0 - 47.0 % | [facility] | | | | | | [facility] | | | | | | MEDICAL | | | | | | CENTER - | | | | | | LABORATORY | | + +-------+ + + + | MCV | 93.4 | 83.0 - 101.0 fL | [facility] | | | | | | [facility] | | | | | | MEDICAL | | | | | | CENTER - | | | | | | LABORATORY | | + +-------+ + + + | MCH | 31.9 | 28.0 - 35.0 pg | [facility] | | | | | | [facility] | | | | | | MEDICAL | | | | | | CENTER - | | | | | | LABORATORY | | + +-------+ + + + | MCHC | 34.1 | 32.0 - 36.0 | [facility] | | | | | g/dL | [facility] | | | | | | MEDICAL | | | | | | CENTER - | | | | | | LABORATORY | | + +-------+ + + + | RDW-CV | 12.9 | <15.0 % | [facility] | | | | | | [facility] | | | | | | MEDICAL | | | | | | CENTER - | | | | | | LABORATORY | | + +-------+ + + + | Platelet | 272 | 140 - 440 K/uL | [facility] | | | Count | | | [facility] | | | | | | MEDICAL | | | | | | CENTER - | | | | | | LABORATORY | | + +-------+ + + + | % | 63.9 | 45 - 75 % | [facility] | | | Neutrophils | | | [facility] | | | | | | MEDICAL | | | | | | CENTER - | | | | | | LABORATORY | | + +-------+ + + + | % | 29.3 | 20 - 45 % | [facility] | | | Lymphocytes | | | [facility] | | | | | | MEDICAL | | | | | | CENTER - | | | | | | LABORATORY | | + +-------+ + + + | % Monocytes | 4.5 | 4 - 12 % | [facility] | | | | | | [facility] | | | | | | MEDICAL | | | | | | CENTER - | | | | | | LABORATORY | | + +-------+ + + + | % | 2.0 | 0 - 5 % | [facility] [...] +-------+ + + + | Absolute | 6.2 | 1.5 - 6.6 K/uL | [facility] | | | Neutrophils | | | [facility] | | | | | | MEDICAL | | | | | | CENTER - | | | | | | LABORATORY | | + +-------+ + + + | Absolute | 2.9 | 0.6 - 3.2 K/uL | [facility] | | | Lymphocytes | | | [facility] | | | | | | MEDICAL | | | | | | CENTER - | | | | | | LABORATORY | | + +-------+ + + + | Absolute | 0.4 | 0.0 - 1.0 K/uL | [facility] [...] 0.0 | 0.0 - 0.1 K/uL | [facility] | | | Basophils | | | [facility] | | [...] | [address] | [place], [place] | [phone] | | [facility] | | [address] | | | - LABORATORY | | | | + + + + + | [facility] | [address] | [place], [place] | | | [facility] | | [id number] [place] [address] | | | - LABORATORY | | | | + + + + + documented in this encounter Visit Diagnoses Not on filedocumented in this encounter"
--- OUTSIDE RECORDS SUMMARY | ~2019-10-30 | XMS | Encounter Summary ---
Demographics + + + | Address | [address] | | | [place] [address] | + + + | Home Phone [...] BERNARD | | | | | [place] [address] | | + + + + + | Ab Romykia | ECON | Unknown | | + + + + + Care Team Providers + +------+ + | Care Stove Mechanic Name | Role | Phone | [...] + | 09/08/ | Telephone | [facility] | Pj Abdi, | Appointment | | 2019 | | MEDICINE [place] | [address] | | | | | [address] | [place] | | | | | [place] | [address] | | | | | [address] | | | | | | [phone] | | | +--------+ + + + [...]
--- OUTSIDE RECORDS SUMMARY | ~2019-10-30 | XMS | Encounter Summary ---
Demographics + + + | Address | [address] | | | [place] [address] | + + + | Home Phone [...] | | | | | [place] [address] | | + + + + + | Ab Romykia | ECON | Unknown | | + + + + + Care Team Providers + +------+ + | Care Caregiver Services Home Name | Role | Phone | + +------+ + PCP | Unavailable | + +------+ + Encounter Details +--------+ + + + + | Date | Type | Department | Care Team | Description | +--------+ + + + + | 04/13/ | Hospital | [facility] | [place] | | | 2008 | Encounter | MED CTR EMERGENCY | MD Rebecca [address] | | | | | CENTER [address] | [place], | | | | | [place], [place] | [place] [address] | | | | | [address] | [phone] | | | | | [phone] | | | +--------+ + + + [...]
--- OUTSIDE RECORDS SUMMARY | ~2019-10-30 | XMS | Encounter Summary ---
Demographics + + + | Address | [address] | | | [place] [address] | + + + | Home Phone [...] | | | | | [place] [address] | | + + + + + | Ab Romykia | ECON | Unknown | | + + + + + Care Team Providers + +------+ + | Care Tire Inspector Name | Role | Phone | [...] + | 06/06/ | Refill | [facility] | Pj Abdi, | Medication Refill | | 2017 | | MEDICINE [place] | [address] | | | | | [address] | [place] | | | | | [place] | [address] | | | | | [address] | | | | | | [phone] | | | +--------+--------+ + + + [...]
--- OUTSIDE RECORDS SUMMARY | ~2019-10-30 | XMS | Encounter Summary ---
Demographics + + + | Address | [address] | | | [place] [address] | + + + | Home Phone [...] | | | | | [place] [address] | | + + + + + | Ab Romykia | ECON | Unknown | | + + + + + Care Team Providers + +------+ + | Care Heel Builder Machine Name | Role | Phone | + +------+ + PCP | Unavailable | + +------+ + Encounter Details +--------+ + + + + | Date | Type | Department | Care Team | Description | +--------+ + + + + | 07/10/ | Hospital | [facility] | [place], | | | 2008 | Encounter | MED CTR EMERGENCY | Mike Yarbrough MD [address] | | | | | CENTER [address] | [address] | | | | | [place], [place] | [place] [address] | | | | | [address] | [phone] | | | | | [phone] | | | +--------+ + + + [...]
--- OUTSIDE RECORDS SUMMARY | ~2019-10-30 | XMS | Encounter Summary ---
Demographics + + + | Address | [address] | | | [place] [address] | + + + | Home Phone [...] | | | | | [place] [address] | | + + + + + | Ab Romykia | ECON | Unknown | | + + + + + Care Team Providers + +------+ + | Care Physical Director Name | Role | Phone | [...] + + | 03/29/ | Office | [facility] | Pj Abdi, | Acute exacerbation | | 2017 | Visit | [facility] [place] | [address] | of chronic low back | | | | [address] | [place] | pain (Primary Dx); | | | | [place] | [address] | Chronic pain | | | | [address] | | syndrome; Urinary | | | | [phone] | | incontinence, | | | | [...] has been changed since signin Order Audit [place] HYDROcodone-acetaminophen (NORCO) 5-325 mg per tablet Starting on 04/09/2017. Take 1 table t by mouth every 6 hours as needed for Pain (for severe break through pain). Number of times this order has been changed since signin Order Audit [place] HYDROcodone-acetaminophen (NORCO) 5-325 mg per tablet (Taking/Discontinued) Take 1 tablet by mouth every 6 hours as needed for Pain (for severe break through pain). Number of times this order has been changed since signin Order Audit [place] hydrOXYzine hydrochloride (ATARAX) 25 mg tablet (Taking) TAKE TWO TABLETS EVERY SIX HOURS NEEDED FOR ANXIETY OR ITCHING Number of times this order has been changed since signin Order Audit [place] naproxen (NAPROSYN) 500 mg tablet (Taking) TAKE ONE TABLET TWICE DAILY WITH BREAKFAST AND DINNER Number of times this order has been changed since signin Order Audit [place] ondansetron (ZOFRAN ODT) 4 mg disintegrating tablet (Taking) DISSOLVE ONE TABLET UNDER TH E TONGUE EVERY EIGHT HOURS NEEDED FOR NAUSEA Number of times this order has been changed since signin Order Audit [place] propranolol (INDERAL) 10 mg tablet (Taking) Take 1 tablet by mouth 2 times daily. Number of times this order has been changed since signin Order Audit [place] tiZANidine (ZANAFLEX) 4 mg tablet (Taking) Take 1 tablet by mouth every 6 hours as needed . Number of times this order has been changed since signin Order Audit [place] tiZANidine (ZANAFLEX) 4 mg tablet (Taking/Discontinued) Take 1 tablet by mouth every 6 ho urs as needed. Number of times this order has been changed since signin Order Audit [place] traZODone (DESYREL) 100 mg tablet (Taking) Take 0.5-1 tablet nightly as needed for sleep Number of times this order has been changed since signin Order Audit [place] venlafaxine (EFFEXOR XR) 150 mg 24 hr capsule (Taking) Take 1 capsule by mouth Daily. Number of times this order has been changed since signin Order Audit [place] venlafaxine (EFFEXOR XR) 75 mg 24 hr capsule (Taking/Discontinued) Take 1 capsule by mout h Daily. Number of times this order has been changed since signin Order Audit [place] Past Medical History She has a past [...] 2 Years of education: G.E.D. 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 Assessment: 1. Acute exacerbation of chronic low back pain 2. Chronic pain syndrome HYDROcodone-acetaminophen (NORCO) 5-325 mg per tablet 3. Urinary incontinence, unspecified type 4. Anxiety with depression venlafaxine (EFFEXOR XR) 150 mg 24 hr capsule 5. Back pain, unspecified back location, unspecified back pain laterality, unspecified chronometer tester nicity POCT Urinalysis Dipstick Automated 6. Whiplash [...] 1.001 - 1.030 | | | | [place], | | | | | | UA, [...]
--- OUTSIDE RECORDS SUMMARY | ~2019-10-30 | XMS | Encounter Summary ---
Demographics + + + | Address | [address] | | | [place] [address] | + + + | Home Phone [...] | | | | | [place] [address] | | + + + + + | Ab Bunch | ECON | Unknown | | + + + + + Care Team Providers + +------+ + | Care Clinical Systems Educator Name | Role | Phone | + [...] | | | pain | | [place] [address] | | | | | [R10.31] | | Phone: | | | | | Procedures | | [phone] | | | | | [place] | | Fax: | | | | | LAP,DIAGNOST | | [phone] | | | | | IC ABDOMEN | | | +--------+--------+ + + + + Encounter Details +--------+ + + + + | Date | Type | Department | Care Team | Description | +--------+ + + + + | 06/16/ | Hospital | [facility] | Nikko Sánchez | | | 2016 | Encounter | MED CTR OR INTRA OP | DO Fernando [address] | | | | | [address] | [address] [place] | | | | | [place], [place] | [place] [address] | | | | | [address] | [phone] | | | | | [phone] | | | +--------+ + + + [...] | 1.010, 1.015, | | | | [place], | | 1.020, 1.025 | | | | POC | | | | | + + + + + + | Internal QC | Acceptable | | | | + + + + + + | Lot Number | [id number] | | | | + + + [...] | | | | | | use Cameron 10/325 if ordered. If | | | [...]
--- OUTSIDE RECORDS SUMMARY | ~2019-10-30 | XMS | Encounter Summary ---
Demographics + + + | Address | [address] | | | [place] [address] | + + + | Home Phone [...] | | | | | [place] [address] | | + + + + + | Ab Romykia | ECON | Unknown | | + + + + + Care Team Providers + +------+ + | Care Rod Drawer Name | Role | Phone | + [...] + + | 12/07/ | Telephone | [facility] | Alessandra Mercedes | No Show (Pain | | 2016 | | [facility] [place] | A, PharmD [address] | Contracts Due) | | | | [address] | [address] [facility] | | | | | [place], [place] | [place] [address] | | | | | [address] | [phone] | | | | | [phone] | | | +--------+ + + + [...]
--- OUTSIDE RECORDS SUMMARY | ~2019-10-30 | XMS | Encounter Summary ---
Demographics + + + | Address | [address] | | | [place] [address] | + + + | Home Phone [...] | | | | | [place] [address] | | + + + + + | Ab Bunch | ECON | Unknown | | + + + + + Care Team Providers + +------+ + | Care Cognos Bi Administrator Name | Role | Phone | [...] + + | 03/11/ | Anesthesia | [facility] | Hammad Watts | | | 2016 | Event | MED CTR OR INTRA OP | MD Rosalie [address] | | | | | [address] | [address] [place] | | | | | [place], [place] | [place] [address] | | | | | [address] | [phone] | | | | | [phone] | | | | | | | Maycol Ervin, | | | | | | [address] | | | | | | [place], [place] | | | | | | [address] | | | | | | [phone] | | | | | | | [...] +----+---+ + + | | 1 | [place] | | | | 2 | 43-degrees [...] +----+---+ + + | | 1 | [place] off | | | | 3 | [...] | only - | 03/11/16; 1634 | iPng Vázquez, | Leslye Stovall, JAMEL | | | | RN | | | Incisi | | | | | on | | | | +--------+ + + + | Periph | 02/15/16; 2200; Right; | 02/15/16 2200 by | 03/11/16 1635 by | | eral | Antecubital; [id number] | Cathleen Tatum, | Leslye Stovall RN [...]
--- OUTSIDE RECORDS SUMMARY | ~2019-10-30 | XMS | Encounter Summary ---
Demographics + + + | Address | [address] | | | [place] [address] | + + + | Home Phone [...] | | | | | [place] [address] | | + + + + + | Ab Romykia | ECON | Unknown | | + + + + + Care Team Providers + +------+ + | Care Hand Router Operator Name | Role | Phone | [...] Appointment | | 2018 | | [facility] | [address] | | | | | [address] | [place] | | | | | [place] | [address] | | | | | [address] | | | | | | [phone] | | | +--------+ + + + [...]
--- OUTSIDE RECORDS SUMMARY | ~2019-10-30 | XMS | Encounter Summary ---
Demographics + + + | Address | [address] | | | [place] [address] | + + + | Home Phone [...] | | | | | [place] [address] | | + + + + + | Ab Romykia | ECON | Unknown | | + + + + + Care Team Providers + +------+ + | Care Garland Maker Name | Role | Phone | + [...] + | 03/14/ | Refill | [facility] | Pj Abdi, | Medication Refill | | 2016 | | [facility] | [address] | | | | | [address] | [place] | | | | | [place] | [address] | | | | | [address] | | | | | | [phone] | | | +--------+--------+ + + + [...]
--- OUTSIDE RECORDS SUMMARY | ~2019-10-30 | XMS | Encounter Summary ---
Demographics + + + | Address | [address] | | | [place] [address] | + + + | Home Phone [...] + + + | Author | [facility] | | | and Johnana | + + + | Organization | [facility] | | | [...] | | | | | [place] [address] | | + + + + + | Absweta Bunch | ECON | Unknown | | + + + + + Care Team Providers + +------+ + | Care General Ledger Bookkeeper Name | Role | Phone | [...] + + | 09/16/ | Emergency | [facility] | Billy Munoz, | Contusion of right | | 2018 | | MED CTR EMERGENCY | MD [address] | foot, initial | | | | CENTER [address] | [place] | encounter (Primary | | | | [place] | [address] | Dx) | | | | [address] | | | | | | [phone] | | | +--------+ + + + [...] cannot be sent through Care Everywhere.Foot Contusion (Egyptian)documented in this encounter Plan of Treatment + [...] + | Honorio, Rad Results In - 09/16/2017 9:05 AM [...] | | | | | [address] [facility] [address], | | | | | | | | | | | | | + + + + +------+------+ +---+---+ | | | +---+---+ documented in this encounter
--- OUTSIDE RECORDS SUMMARY | ~2019-10-30 | XMS | Encounter Summary ---
Demographics + + + | Address | [address] | | | [place] [address] | + + + | Home Phone [...] | | | | | [place] [address] | | + + + + + | Ab Romykia | ECON | Unknown | | + + + + + Care Team Providers + +------+ + | Care Information Security Specialist Name | Role | Phone | [...] [place] | | | | | | [address] | | | | | | [phone] | | | +--------+ + + + [...] + | [facility] | [address] | [place], [place] | [phone] | | [facility] | | [address] | | | - LABORATORY | | | | + + + + + | [facility] | [address] | [place], [place] | | | [facility] | | [address] [place] [address] | | | - LABORATORY | | | | + + + + + documented in this encounter Visit Diagnoses Not on filedocumented in this encounter"
--- OUTSIDE RECORDS SUMMARY | ~2019-10-30 | XMS | Encounter Summary ---
Demographics + + + | Address | [address] | | | [place] [address] | + + + | Home Phone [...] | | | | | [place] [address] | | + + + + + | Ab Romykia | ECON | Unknown | | + + + + + Care Team Providers + +------+ + | Care Relocation Counselor Name | Role | Phone | + +------+ + | No Physician | PCP | Unavailable | + +------+ + Encounter Details +--------+ + + + + | Date | Type | Department | Care Team | Description | +--------+ + + + + | 01/26/ | Hospital | [facility] | Marcy Naik | Pain | | 2015 | Encounter | MED CTR HILARY XRAY | DO [address] | | | | | [address] [place] | [address] [place], [place] | | | | | [place], [place] | [address] | | | | | [address] | | | | | | [phone] | | | +--------+ + + + [...] [address] | [place] | [phone] | | [facility] | | [address] | | | - IMAGING | | | | + + + + + documented in this encounter Visit Diagnoses + + | Diagnosis | + + | Pain Generalized pain | + + documented in this encounter"
--- OUTSIDE RECORDS SUMMARY | ~2019-10-30 | XMS | Encounter Summary ---
Demographics + + + | Address | [address] | | | [place] [address] | + + + | Home Phone [...] | | | | | [place] [address] | | + + + + + | Ab Bunch | ECON | Unknown | | + + + + + Care Team Providers + +------+ + | Care Human Performance Professor Name | Role | Phone | [...] | type Panic | AVE [place] | [place] | | | | | disorder | [place], [place] | [address] | | | | | Generalized | [address] | [address] [place] | | | | | anxiety | Phone: | [place] | | | | | disorder | [phone] | [address] | | | | | | Fax: | Phone: | | | | | | [phone] | [phone] | | | | | | | Fax: | | | | | | | [phone] | +--------+ + + + + + [...] + + | 09/26/ | Office | [facility] | Pj Abdi, | Acute pain of left | | 2019 | Visit | [facility] [place] | [address] | knee (Primary Dx); | | | | [address] | [place] | PONV (postoperative | | | | [place], [place] | [address] | nausea and | | | | [address] | | vomiting); Abdominal | | | | [phone] | | pain, unspecified | | | [...] currently in counseling: yes, Patient goes to [place] and sees Maria Luz mcgregor Treatments Tried: Patient stopped taking Hydroxyzine about 3 weeks ago. States that it was ineffective. Have they been effective: Yes PHQ9 SCORE Office Visit from 09/26/2018 in [facility] Office Visit from 2016 in [facility] Office Visit from 12/07/2016 in [facility] Office Visit from 11/30/2016 in [facility] PHQ-9 Total Score (Patient Health Questionnaire) 16 6 16 7 ANXIETY/STRESS SCORE Office Visit from 09/26/2018 in [facility] Office Visit from 2016 in [facility] Office Visit from 12/07/2016 in [facility] Office Visit from 11/30/2016 in [facility] SULMA-7 Score (General Anxiety Disorder) 18 5 [...] Suboxone which she is receiving from [facility]. She reports that she is currently on 12 mg/d ay. Patient reports that she technically has full custody of her 8-year-old son Gilberto. He however currently lives in [facility] with a paternal aunt. Patient also has a 5-year-old s on named Jordy who currently is living with the paternal grandmother who also has full custod yEllis Thompson reports that she has left axles dad. She left him shortly after she got clean. That she then moved to [place] and ended up getting back together with Gilberto's father. However they then broke up a couple of weeks ago. She was previously living with her own gr andfather at [facility]. 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 Patient reports that she has a van that she is living at. Currently that van is parked at [facility]. Patient reports that she is in coun [...] has been changed since signin Order Audit [place] naproxen (NAPROSYN) 500 mg tablet (Taking) TAKE ONE TABLET TWICE A DAY WITH BREAKFAST AND DINNER Number of times this order has been changed since signin Order Audit [place] NARCAN 4 MG/0.1ML (Taking) ondansetron (ZOFRAN) 4 mg tablet (Taking) TAKE ONE TABLET EVERY 8 HOURS NEEDED FOR VILMA SEA Number of times this order has been changed since signin Order Audit [place] ondansetron (ZOFRAN) 4 mg tablet (Taking/Discontinued) TAKE ONE TABLET EVERY 8 HOURS N EEDED FOR NAUSEA Number of times this order has been changed since signin Order Audit [place] SUBOXONE 8-2 MG SL film (Taking) 12 [...] level: Not on file Occupational History 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 With the intermittent joint pain dylon t is occurring throughout her body and [...] y of drug use. I, Karin Hodge, Tightener, am acting as a scribe on behalf of, and in the pre sence of Pj Abdi MD. Electronically signed by: Karin Hodge, Tightener 09/26/18 9:09 I, Dr. Pj Abdi, personally performed the services described in this documentation, as scribed in my presence and it is both accurate and complete. Pj Abdi MD 09/26/18 documented in this e ncounter Plan of Treatment + + +--------+ + + | Name | Type | Priori | Associated Diagnoses | Order Schedule | | | | ty | | | + + +--------+ + + | * [facility] | Outpatient | Routin | Insomnia, [...] | | | | | | The [facility] recommends that | | | | | | a positive HCV antibody | | | | | | result be followed up | | | | | | with a HCV Nucleic Acid | | | | | | Amplification test | | | | | | ([id number]). | | | | + + + + + + + + | Specimen | + + | Blood | + + + + + | Narrative | Performed At | + + + | Performed at: - [place] [address], | REFERENCE LAB | | [place], [place] [id number] Telecommunications Line Mechanic: Suhail Price MD, Phone: | [facility] | | [phone] | | + + + + + + + + | Performing | Address | City/State/Zipcode | Phone Number | | Organization | | | | + + + + + | REFERENCE LAB | [address] | [place], [place] | [phone] | | [facility] | [facility] | [address] | | + + + + + [...] + + + | Performed at: - [facility] [address], | REFERENCE LAB | | [place], [place] [id number] Telecommunications Line Mechanic: Suhail Price MD, Phone: | [facility] | | [phone] | | + + + + + + + + | Performing | Address | City/State/Zipcode | Phone Number | | Organization | | | | + + + + + | REFERENCE LAB | [address] | [place], [place] | [phone] | | [facility] | [address] [facility] | [address] | | + + + + + [...] | REFERENCE LAB | | [place] [id number] Telecommunications Line Mechanic: Joy Sorto MD, Phone: | [facility] | | [phone] | | + + + + + + + + | Performing | Address | City/State/Zipcode | Phone Number | | Organization | | | | + + + + + | REFERENCE LAB | [address] | [place], [place] | [phone] | | [facility] | [place] | [address] | | + + + + + [...] | REFERENCE LAB | | [place] [id number] Telecommunications Line Mechanic: Joy Sorto MD, Phone: | [facility] | | [phone] | | + + + + + + + + | Performing | Address | City/State/Zipcode | Phone Number | | Organization | | | | + + + + + | REFERENCE LAB | [address] | [place], [place] | [phone] | | [facility] | [place] | [address] | | + + + + + [...] | REFERENCE LAB | | [place] [id number] Telecommunications Line Mechanic: Jesse Salgado MD, Phone: | [facility] | | [phone] | | + + + + + + + + | Performing | Address | City/State/Zipcode | Phone Number | | Organization | | | | + + + + + | REFERENCE LAB | [address] | [place], [place] | [phone] | | [facility] | [place] | [address] | | + + + + + [...] [address] | [place] | [phone] | | [facility] | | [address] | | | [facility] | | [...] + + | Performed at: 01 - [facility] [address], | REFERENCE LAB | | [place], [place] [id number] Telecommunications Line Mechanic: Suhail Price MD, Phone: | [facility] | | [phone] | | + + + + + + + + | Performing | Address | City/State/Zipcode | Phone Number | | Organization | | | | + + + + + | REFERENCE LAB | [address] | [place], [place] | [phone] | | [facility] | [facility] | [address] | | + + + + + [...] + + + | [facility] | [address] | [place] | [phone] | | [facility] | | [address] | | | [facility] | | [...] | REFERENCE LAB | | [place] [phone] Telecommunications Line Mechanic: Jesse Salgado MD, Phone: | [facility] | | [phone] | | + + + + + + + + | Performing | Address | City/State/Zipcode | Phone Number | | Organization | | | | + + + + + | REFERENCE LAB | [address] | [place] | [phone] | | [facility] | [address] | [address] | | + + + + + [...] | mL/min/1.73m2 | [facility] | | | [facility] | RATE,ESTIMATED | | MEDICAL | | | | mL/min/1.09y1Ntzy than | | PARK | | | [...] + + + | [facility] | [address] | [place] | [phone] | | [facility] | | [address] | | | [facility] | | [...] + + + | [facility] | [address] | [place] | [phone] | | [facility] | | [address] | | | [facility] | | [...]
--- OUTSIDE RECORDS SUMMARY | ~2019-10-30 | XMS | Encounter Summary ---
Demographics + + + | Address | [address] | | | [place] [address] | + + + | Home Phone [...] | | | | | [place] [address] | | + + + + + | Absweta Bunch | ECON | Unknown | | + + + + + Care Team Providers + +------+ + | Care Senior Cost Analyst Name | Role | Phone | [...] | +--------+ + + + + | 02/15/ | [facility] | [facility] | [facility] | Acute right-sided | | 2017 | | MED CTR EMERG[facility]Y | MD Mike [address] | low back pain | | | | CENTER [address] | [address] [place] | without sciatica | | | | [place], [place] | [place] [address] | (Primary Dx) | | | | [address] | [phone] | | | | | [phone] | | | +--------+ + + + [...] + + + | Blood Pressure | 130/91 | 02/15/2017 6:24 PM | | | | | PDT | | + + + + + | Pulse | 100 | 02/15/2017 6:24 PM | | | | | PDT | | + + + + + | Temperature | 36.6 C (97.9 F) | 02/15/2017 6:24 PM | | | | | PDT | | + + + + + | Respiratory Rate | 16 | 02/15/2017 6:24 PM | | | | | PDT | | + + + + + | Oxygen Saturation | 100% | 02/15/2017 6:24 PM | | | | | PDT | | + + + + + | Inhaled Oxygen | - | - | | | Concentration | | | | + + + + + | Weight | 59 kg (130 lb) | 02/15/2017 6:24 PM | | | | | PDT | | + + + + + | Height | 162.6 cm (5' 4") | 02/15/2017 6:24 PM | | | | | PDT | | + + + + + | Body Mass Index | 22.31 | 02/15/2017 6:24 PM | | | | | PDT | | + + + + + documented in this encounter Discharge Instructions AttachmentsThe following attachments cannot be sent through Care Everywhere.Back, How It Wo rks (Marshallese)Back Pain, Relieving (Marshallese)documented in this encounter Medications at Time of [...] + +---------+ + + | cyclobenzaprine | TAKE ONE TABLET | 60 | 0 | 02/17/20 | | | (FLEXERIL) 10 mg | THREE TIMES DAILY | tablet | | 17 | 7 | | tablet | NEEDED FOR MUSCLE | | | | | | | SPASMS | | | | | + + [...] tablet by | 30 | 0 | 02/14/20 | | | HYDROcodone-acetamin | mouth every [...] TWO TABLETS | 60 | 0 | 02/17/20 | | | hydrochloride | EVERY SIX [...] ondansetron | Take 1 tablet by | 30 | 1 | 12/01/19 | | | (ZOFRAN ODT) 4 mg | mouth every 8 hours | tablet | | 17 | 7 | | disintegrating | as needed for | | | | | | tabletIndications: | Nausea. | | | | | | Nausea | | | | | | + [...] INFORMATION | CELSO | Routin | | 02/15/2017 5:50 PM | | EXCHANGE | | e | | PDT | + +------+--------+ + + documented as of this encounter Procedures + +--------+ + + + | Procedure Name | Priori | Date/Time | Associated Diagnosis | Comments | | | ty | | | | + +--------+ + + + | POCT TEST, | STAT | 02/15/2017 | | Results for this | | URINE, QUAL | | 7:13 PM | | procedure are in the | | | | PDT | | results section. | + +--------+ + + + | ED INFORMATION | Routin | 02/15/2017 | | | | EXCHANGE | e [...] | | n - | | | 02/15/ | | | 2016 | | | 5:51 | | | [...] ON?/ | | | | | | 7 | | | 17:48? | | | SHAH | | | LSH, | | | SABRIN | | | A | | | K?MRN: | | | | | | [id number] | | | [id number] | | | his | | | [...] | | | ent/a9 | | | [id number] | | | -[id number] | | | [...] | | | int | | | Sep | | | [...] | | | injury | | | Aug | | | [...] | | | ified | | | Caleb | | | 3, | | | 2017 | | | [facility] | | | [place] | | | Urgent | | | Care | | | [place] | | | [place] | | | Urgent | | | Care | | | | | | Outpat | | | ient | | | | | | Hematu | | | clarice, | | | unspec | | | ified | | | | | | Nausea | | | E.D. | | | [...] MED | | | | | | 2017-0 | | | 9-24 | | | HYDROC | | | ODON-A | | | CETAMI | | | NOPHEN | | | 5-325 | | | 30 | | | PJ | | | ABDI | | | 2 5 | | | 2017-0 | | | 8-25 | | | HYDROC | | | ODON-A | | | CETAMI | | | NOPHEN | | | 5-325 | | | 30 | | | PJ | | | ABDI | | | 2 | | | 18.75 | | | 2017- | | | 7-28 | | | [...] | | KANDICE | | | 0 | | | | | | 4-20 | | | HYDROC | | | ODON-A | | | CETAMI | | | NOPHEN | | | 5-325 | | | 20 | | | ANSON | | | KANDICE | | | 0 | | | | | | 4-09 | | | HYDROC | | | ODON-A | | | CETAMI | | | NOPHEN | | | 5-325 | | | 4 S | | | VON | | | HAVEN | | | 2 20 | | | Rx | | | Summar | | | y (12 | | | Mo.)Me | | | tric | | | Count | | | CS | | | II-V | | | Rx 15 | | | CS-II | | | Rx 13 | | | Quanti | | | ty | | | Dispen | | | sed | | | 783 | | | Unique | | | | | | Prescr | | | ibers | | | 6 | | | Unique | | | | | | Pharma | | | cies 3 | | | | | | Benzos | | | 1 | | | Opioid | | | s 14 | | | Long | | | [...] | | | Manning | | | [facility], | | | [place] - | | | [email or web address] | | | ollect | | | ivemed | | | icalte | | | [email or web address] | | | | +---+--------+ documented in this encounter Results POCT Test, Urine, QUAL (02/15/2017 7:13 PM PDT) + + + + + [...] | 1.010, 1.015, | | | | [place], | | 1.020, 1.025 | | | | POC | | | | | + + + + + + | Lot Number | [id number] | | | | + + + + + + | Expiration | 07/25/2018 | | | | | Date | | | | | + + + + + + + + | Specimen | + + | Urine | + + documented in this encounter Visit Diagnoses + + | Diagnosis | + + | Acute right-sided low back pain without sciatica - Primary | + + documented in this encounter Administered Medications + +--------+ +--------+------+ + | Medication Order | MAR | Action | Dose | Rate | Site | | | Action | Date | | | | + +--------+ +--------+------+ + | HYDROmorphone (DILAUDID) | Given | 02/16/20 | 0.5 mg | | Deltoid- | | injection 0.5 mg 0.5 mg, | | 17 7:25 | | | Right | | Intramuscular, ONCE, Joshua 02/15/17 | | PM PDT | | | | | at 1920, For 1 dose | | | | | | + +--------+ +--------+------+ + +---+---+ | | | +---+---+ + +-------+ +-------+---+---+ | predniSONE (DELTASONE) tablet | Given | 02/16/20 | 10 mg | | | | 10 mg 10 mg, Oral, ONCE, Tue | | 17 7:24 | | | | | 02/15/17 at 1920, For 1 dose | | PM PDT | | | | + +-------+ +-------+---+---+ +---+---+ | | | +---+---+ documented in this encounter
--- OUTSIDE RECORDS SUMMARY | ~2019-10-30 | XMS | Encounter Summary ---
Demographics + + + | Address | [address] | | | [place] [address] | + + + | Home Phone [...] | | | | | [place] [address] | | + + + + + | Ab Romykia | ECON | Unknown | | + + + + + Care Team Providers + +------+ + | Care Kitchen Helper Name | Role | Phone | [...] Results | | 2019 | | [facility] [place] | [address] | | | | | [address] | [place] | | | | | [place] | [address] | | | | | [address] | | | | | | [phone] | | | +--------+ + + + [...]
--- OUTSIDE RECORDS SUMMARY | ~2019-10-30 | XMS | Encounter Summary ---
Demographics + + + | Address | [address] | | | [place] [address] | + + + | Home Phone [...] | | | | | [place] [address] | | + + + + + | Ab Bunch | ECON | Unknown | | + + + + + Care Team Providers + +------+ + | Care Natural Gas Inspector Name | Role | Phone | + +------+ + | Mike Fernández MD | PCP | | + +------+ + Encounter Details +--------+ + + + + | Date | Type | Department | Care Team | Description | +--------+ + + + + | 12/13/ | Hospital | [facility] | Mukesh Coppola | | | 2012 - | Encounter | MED CTR EMERGENCY | MD Fernando [address] | | | | | [place] [address] [place] | [place] [facility] | | | 12/14/ | | [place], [place] | [place] [address] | | | 2012 | | [address] | [phone] | | | | | [phone] | | | +--------+ + + + [...]
--- OUTSIDE RECORDS SUMMARY | ~2019-10-30 | XMS | Encounter Summary ---
Demographics + + + | Address | [address] | | | [place] [address] | + + + | Home Phone [...] | | | | | [place] [address] | | + + + + + | Ab Romykia | ECON | Unknown | | + + + + + Care Team Providers + +------+ + | Care Telephone Messenger Name | Role | Phone | [...] + | 05/25/ | Telephone | [facility] | Pj Abdi, | Encopresis | | 2018 | | MEDICINE [place] | [address] | | | | | [address] | [place] | | | | | [place] | [address] | | | | | [address] | | | | | | [phone] | | | +--------+ + + + [...]
--- OUTSIDE RECORDS SUMMARY | ~2019-10-30 | XMS | Encounter Summary ---
Demographics + + + | Address | [address] | | | [place] [address] | + + + | Home Phone [...] | | | | | [place] [address] | | + + + + + | Ab Romykia | ECON | Unknown | | + + + + + Care Team Providers + +------+ + | Care Assistant Loan Processor Name | Role | Phone | + +------+ + PCP | Unavailable | + +------+ + Encounter Details +--------+ + + + + | Date | Type | Department | Care Team | Description | +--------+ + + + + | 11/30/ | Hospital | [facility] | Mukesh Coppola | | | 2011 | Encounter | MED CTR EMERGENCY | MD Fernando [address] | | | | | CENTER [address] | [address] [place] | | | | | [place], [place] | [place] [address] | | | | | [address] | [phone] | | | | | [phone] | | | +--------+ + + + [...]
--- OUTSIDE RECORDS SUMMARY | ~2019-10-30 | XMS | Encounter Summary ---
Demographics + + + | Address | [address] | | | [place] [address] | + + + | Home Phone [...] | | | | | [place] [address] | | + + + + + | Ab Romykia | ECON | Unknown | | + + + + + Care Team Providers + +------+ + | Care Ciso Name | Role | Phone | + [...] Description | +--------+--------+ + + + | 05/30/ | Refill | [facility] | Pj Abdi, | Medication Refill | | 2017 | | MEDICINE [place] | [address] | | | | | [address] | [place] | | | | | [place] | [address] | | | | | [address] | | | | | | [phone] | | | +--------+--------+ + + + [...]
--- OUTSIDE RECORDS SUMMARY | ~2019-10-30 | XMS | Encounter Summary ---
Demographics + + + | Address | [address] | | | [place] [address] | + + + | Home Phone [...] | | | | | [place] [address] | | + + + + + | Ab Romykia | ECON | Unknown | | + + + + + Care Team Providers + +------+ + | Care Etl Informatica Developer Name | Role | Phone | [...] Description | +--------+--------+ + + + | 04/01/ | Refill | [facility] | Pj Abdi, | Medication Refill | | 2016 | | MEDICINE [place] | [address] | | | | | [address] | [place] | | | | | [place] | [address] | | | | | [address] | | | | | | [phone] | | | +--------+--------+ + + + [...]
--- OUTSIDE RECORDS SUMMARY | ~2019-10-30 | XMS | Encounter Summary ---
Demographics + + + | Address | [address] | | | [place] [address] | + + + | Home Phone [...] | | | | | [place] [address] | | + + + + + | Ab Bunch | ECON | Unknown | | + + + + + Care Team Providers + +------+ + | Care Hair Spinner Name | Role | Phone | + [...] [place], | | | | | | [address] | [place] [address] | | | | | | Phone: | Phone: | | | | | | [phone] | [phone] | | | | | | Fax: | Fax: | | | | | | [phone] | [phone] | +--------+ + + + + + [...] + + | 12/13/ | Emergency | [facility] | [facility] | Pelvic pain (Primary | | 2018 | | MED CTR EMERGENCY | MD Mike [address] | Dx); Abdominal | | | | CENTER [address] | [address] [place] | pain, unspecified | | | | [place], [place] | [place] [address] | abdominal location | | | | [address] | [phone] | | | | | [phone] | | | +--------+ + + + [...] be sent through Care Everywhere.Abdominal Pain, Adult (American)documented in this encounter Medications at Time of [...] K?MRN: | | | | | | [id number] | | | [id number] | | | his | | | [...] | | | ent/a9 | | | [id number] | | | -83be- | | | [...] - 1.030 | [facility] | | | [place], | | | [facility] | | [...] [address] | [place] | [phone] | | [facility] | | [address] | | | - LABORATORY | | [...] | | | Serum | | | [facility] | | | | | | MEDICAL [...] [address] | [place] | [phone] | | [facility] | | [address] | | | - LABORATORY | | [...] 7 | 7 - 18 mg/dL | [facility] | | | | | | [facility] | | | | | | MEDICAL | | | | | | CENTER - | | | | | | LABORATORY | | + + + + + + | Creatinine | 0.76 | 0.60 - 1.30 | [facility] | | | | | mg/dL | [facility] | | | | | | MEDICAL | | | | | | CENTER - | | | | | | LABORATORY | | + + + + + + | eGFR if not | >60Comment: GLOMERULAR | >=60 | [facility] | | | | FILTRATION | mL/min/1.73m2 | [facility] | | | [place]AN | RATE,ESTIMATED | | MEDICAL | | | | mL/min/1.09w2Xyiq than | | CENTER - | | [...] [address] | [place] | [phone] | | [facility] | | [address] | | | - LABORATORY | | [...] [address] | [place] | [phone] | | [facility] | | [address] | | | - LABORATORY | | [...] | | | | | Intramuscular, ONCE, [facility] 12[facility]17 | | | | | | [...]
--- OUTSIDE RECORDS SUMMARY | ~2019-10-30 | XMS | Encounter Summary ---
Demographics + + + | Address | [address] | | | [place] [address] | + + + | Home Phone | | + + + | Preferred Language | Unknown | + + + | Marital Status | Single | + + + | Worship Affiliation | 1013 | + + + [...] | | | | | [place] [address] | | + + + + + | Ab Romykia | ECON | Unknown | | + + + + + Care Team Providers + +------+ + | Care Test Man Name | Role | Phone | + +------+ + PCP | Unavailable | + +------+ + Encounter Details +--------+ + + + + | Date | Type | Department | Care Team | Description | +--------+ + + + + | 05/29/ | Hospital | [facility] | [place]ann[place], | | | 2009 | Encounter | MED CTR EMERGENCY | Mike Yarbrough MD [address] | | | | | CENTER [address] | [address] [place] | | | | | [place], [place] | [place] [address] | | | | | [address] | [phone] | | | | | [phone] | | | +--------+ + + + [...]
--- OUTSIDE RECORDS SUMMARY | ~2019-10-30 | XMS | Encounter Summary ---
Demographics + + + | Address | [address] | | | [place] [address] | + + + | Home Phone [...] | | | | | [place] [address] | | + + + + + | Ab Romyika | ECON | Unknown | | + + + + + Care Team Providers + +------+ + | Care Press Assistant And Feeder Name | Role | Phone | [...] + | 12/20/ | Refill | [facility] | Pj Abdi, | Medication Problem | | 2016 | | MEDICINE [place] | [address] | | | | | [address] | [place] | | | | | [place] | [id number] | | | | | [address] | | | | | | [phone] | | | +--------+--------+ + + + [...]
--- OUTSIDE RECORDS SUMMARY | ~2019-10-30 | XMS | Encounter Summary ---
Demographics + + + | Address | [address] | | | [place] [address] | + + + | Home Phone | | + + + | Preferred Language | Unknown | + + + | Marital Status | Single | + + + | Temple Affiliation | 1013 | + + + | Race | Unknown | + + + | Ethnic Group | Unknown | + + + Author + + + | Author | [facility] | | | and Johnana | + + + | Organization | [facility] | | [...] | | | | | [place] [address] | | + + + + + | Ab Romykia | ECON | Unknown | | + + + + + Care Team Providers + +------+ + | Care Cupola Melting Supervisor Name | Role | Phone | [...] + | 10/17/ | Refill | [facility] | Pj Abdi, | Medication Refill | | 2018 | | MEDICINE [place] | [address] | | | | | [address] | [place] | | | | | [place] | [address] | | | | | [address] | | | | | | [phone] | | | +--------+--------+ + + + [...]
--- OUTSIDE RECORDS SUMMARY | ~2019-10-30 | XMS | Encounter Summary ---
Demographics + + + | Address | [address] | | | [place] [address] | + + + | Home Phone [...] | | | | | [place] [address] | | + + + + + | Ab Romykia | ECON | Unknown | | + + + + + Care Team Providers + +------+ + | Care Commercial Credit Officer Name | Role | Phone | [...] [address] | [place] | | | | | [place] | [address] | | | | | [address] | | | | | | [phone] | | | +--------+ + + + [...]
--- OUTSIDE RECORDS SUMMARY | ~2019-10-30 | XMS | Encounter Summary ---
Demographics + + + | Address | [address] | | | [place] [address] | + + + | Home Phone [...] | | | | | [place] [address] | | + + + + + [...] | +--------+ + + + + | 12/02/ | Telephone | [facility] | Pj Abdi, | Results | | 2017 | | MEDICINE [place] | [address] | | | | | [address] | [place] | | | | | [place] | [address] | | | | | [address] | | | | | | [phone] | | | +--------+ + + + [...]
--- OUTSIDE RECORDS SUMMARY | ~2019-10-30 | XMS | Encounter Summary ---
Demographics + + + | Address | [address] | | | [place] [address] | + + + | Home Phone [...] | | | | | [place] [address] | | + + + + + | Ab Romykia | ECON | Unknown | | + + + + + Care Team Providers + +------+ + | Care Actuarial Science Professor Name | Role | Phone | [...] + | 11/14/ | Refill | [facility] | Pj Abdi, | Medication Refill | | 2018 | | MEDIC[facility] [place] | [address] | | | | | [address] | [place] | | | | | [place] | [address] | | | | | [address] | | | | | | [phone] | | | +--------+--------+ + + + [...]
--- OUTSIDE RECORDS SUMMARY | ~2019-10-30 | XMS | Encounter Summary ---
Demographics + + + | Address | [address] | | | [place] [address] | + + + | Home Phone [...] | Author | [facility] | | | and Johnana | + + + | Organization | [facility] | | | and [...] | | | | | [place] [address] | | + + + + + | Ab Bunch | ECON | Unknown | | + + + + + Care Team Providers + +------+ + | Care Value Stream Manager Name | Role | Phone | [...] + + | 09/04/ | Documentati | [facility] | Ta Salced[place] | Discharge Without | | 2020 | on | [facility] | J, PT [address] | Visit | | | | [address] | [address] [place] | | | | | [place] | [address] | | | | | [address] | | | | | | [phone] | | | +--------+ + + + [...] PT - 09/05/2019 9:59 AM PDT [facility] [address] [place] [address] Physical Therapy Discharge Note This discharge is [...]
--- OUTSIDE RECORDS SUMMARY | ~2019-10-30 | XMS | Encounter Summary ---
Demographics + + + | Address | [address] | | | [place] [address] | + + + | Home Phone [...] | | | | | [place] [address] | | + + + + + | Ab Romykia | ECON | Unknown | | + + + + + Care Team Providers + +------+ + | Care Computer Trainer Name | Role | Phone | + +------+ + PCP | Unavailable | + +------+ + Encounter Details +--------+ + + + + | Date | Type | Department | Care Team | Description | +--------+ + + + + | 05/20/ | [facility] | | | [facility] | En[facility] | [facility] CTR LAB[facility]ATORY | | | | | | [address] | | | | | | [place] | | | | | | [address] | | | | | | [phone] | | | +--------+ + + + [...]
--- OUTSIDE RECORDS SUMMARY | ~2019-10-30 | XMS | Encounter Summary ---
Demographics + + + | Address | [address] | | | [place] [address] | + + + | Home Phone [...] | | | | | [place] [address] | | + + + + + | Ab Romykia | ECON | Unknown | | + + + + + Care Team Providers + +------+ + | Care Seat Joiner Chainstitch Name | Role | Phone | + [...] [place] | | | | | | [place], [place] | | | | | | [address] | | | | | | [phone] | | | +--------+ + + + [...]
--- OUTSIDE RECORDS SUMMARY | ~2019-10-30 | XMS | Encounter Summary ---
Demographics + + + | Address | [address] | | | [place] [address] | + + + | Home Phone [...] | | | | | [place] [address] | | + + + + + | Ab Romykia | ECON | Unknown | | + + + + + Care Team Providers + +------+ + | Care Wellness Program Administrator Name | Role | Phone | + +------+ + PCP | Unavailable | + +------+ + Encounter Details +--------+ + + + + | Date | Type | Department | Care Team | Description | +--------+ + + + + | 08/30/ | Hospital | [facility] | [place]ann[place], | | | 2011 | Encounter | MED CTR EMERGENCY | Mike Yarbrough MD [address] | | | | | CENTER [address] | [address] [place] | | | | | [place], [place] | [place] [address] | | | | | [address] | [phone] | | | | | [phone] | | | +--------+ + + + [...] + | [facility] | [address] | [place], [place] | [phone] | | [facility] | | [address] | | | - LABORATORY | | | | + + + + + | [facility] | [address] | [place] | | | [facility] | | [address], [facility] | | | - LABORATORY | [...] + | [facility] | [address] | [place], [place] | [phone] | | [facility] | | [address] | | | - LABORATORY | | | | + + + + + | [facility] | [address] | [place], [place] | | | [facility] | | [id number] [place] [address] | | | - LABORATORY | | | | + + + + + documented in this encounter Visit Diagnoses Not on filedocumented in this encounter"
--- OUTSIDE RECORDS SUMMARY | ~2019-10-30 | XMS | Encounter Summary ---
Demographics + + + | Address | [address] | | | [place] [address] | + + + | Home Phone [...] | | | | | [place] [address] | | + + + + + | Ab Romykia | ECON | Unknown | | + + + + + Care Team Providers + +------+ + | Care Showroom Sales Consultant Name | Role | Phone | [...] + + | 01/10/ | Emergency | [facility] | Andres Harding MD | Pelvic pain (Primary | | 2018 | | MED CTR EMERGENCY | [address] | Dx) | | | | CENTER [address] | [place] | | | | | [place] | [address] | | | | | [address] | | | | | | [phone] | | | +--------+ + + + [...] nausea and vomiting. Please follow-up with your desk editor for further management of your pelvic pain. AttachmentsThe following attachments cannot be sent through Care Everywhere.Pelvic Pain, Un known Cause (Angolan)documented in this encounter Medications at Time of [...] K?MRN: | | | | | | [id number] | | | [id number] | | | his | | | [...] | | | ent/a9 | | | [id number] | | | -83be- | | | [...] | | | icalte | | | [email or web address] | | | | +---+--------+ documented in [...] ordering | | | provider, by the iron melter, immediately following the exam. | | | [...] the ordering provider, by the | | iron melter, immediately following the exam. | | | [...] | 0.66 | 0.60 - 1.30 | [place] | | | | | mg/dL | [...] | | MEDICAL | | | | mL/min/1.52x5Rzyt than | | CENTER - | | [...] [address] | [place] | [phone] | | [facility] | | [address] | | | - LABORATORY | | [...] ST. | [address] | [place] | [phone] | | [facility] | | [address] | | | - LABORATORY | | [...] | 1.010, 1.015, | | | | [place], | | 1.020, 1.025 | | | | POC | | | | | + + + + + + | Lot Number | [id number] | | | | + + + [...] 1.001 - 1.030 | | | | [place], | | | | | | UA, [...]
--- OUTSIDE RECORDS SUMMARY | ~2019-10-30 | XMS | Encounter Summary ---
Demographics + + + | Address | [address] | | | [place] [address] | + + + | Home Phone [...] | | | | | [place] [address] | | + + + + + | Ab Romykia | ECON | Unknown | | + + + + + Care Team Providers + +------+ + | Care Chlorobutadiene Scrubber Operator Name | Role | Phone | [...] [place] | | | | | | [place], [place] | | | | | | [address] | | | | | | [phone] | | | +--------+ + + + [...]
--- OUTSIDE RECORDS SUMMARY | ~2019-10-30 | XMS | Encounter Summary ---
Demographics + + + | Address | [address] | | | [place] [address] | + + + | Home Phone [...] | | | | | [place] [address] | | + + + + + | Ab Romykia | ECON | Unknown | | + + + + + Care Team Providers + +------+ + | Care Promotional Representative Name | Role | Phone | + +------+ + PCP | Unavailable | + +------+ + Encounter Details +--------+ + + + + | Date | Type | Department | Care Team | Description | +--------+ + + + + | 11/16/ | Hospital | [facility] | Rebecca Astudillo MD | | | 2011 | Encounter | [facility] | [place] | | | | | [facility] [address] | | | | | | [place], [place] | | | | | | [address] | | | | | | [phone] | | | +--------+ + + + [...] [address] | [place] | [phone] | | [facility] | | [address] | | | - LABORATORY | | | | + + + + + | [address] | [address] | [place] | | | [facility] | | [id number] | | | - [...] [address] | [place] | [phone] | | [facility] | | [address] | | | - LABORATORY | | | | + + + + + | [facility] | [address] | [place] | | | [facility] | | [id number] | | | - LABORATORY | | | | + + + + + documented in this encounter Visit Diagnoses Not on filedocumented in this encounter"
--- OUTSIDE RECORDS SUMMARY | ~2019-10-30 | XMS | Encounter Summary ---
Demographics + + + | Address | [address] | | | [place] [address] | + + + | Home Phone [...] | | | | | [place] [address] | | + + + + + | Absweta Bunch | ECON | Unknown | | + + + + + Care Team Providers + +------+ + | Care Jigger Artisan Name | Role | Phone | + [...] + + | 10/17/ | Office | [facility] | Pj Abdi, | Fibromyalgia | | 2019 | Visit | [facility] [place] | [address] | (Primary Dx); | | | | [address] | [place] | Patellofemoral pain | | | | [place] | [address] | syndrome of both | | | | [address] | | knees | | | | [phone] | | | +--------+---------+ + + + [...] has been changed since signin Order [facility] [place] gabapentin (NEURONTIN) 300 mg capsule (Taking) TAKE TWO CAPSULES THREE TIMES A DAY Number of times this order has been changed since signin Order [facility] [place] ibuprofen (ADVIL, MOTRIN) 200 mg tablet (Taking) Take 400 mg by mouth every 6 hours as ne eded for Pain. mirtazapine (REMERON) 7.5 MG tablet (Taking) Take 1 tablet by mouth nightly. 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 Will check into [...]
--- OUTSIDE RECORDS SUMMARY | ~2019-10-30 | XMS | Encounter Summary ---
Demographics + + + | Address | [address] | | | [place] [address] | + + + | Home Phone [...] | | | | | [place] [address] | | + + + + + | Ab Bunch | ECON | Unknown | | + + + + + Care Team Providers + +------+ + | Care Picture Copyist Name | Role | Phone | + [...] | 01/10- | [place] | [place] [address] | | | | | PCP CHANGE | [address] | Phone: | | | | | | Phone: | [phone] | | | | | | [phone] | Fax: | | | | | | Fax: | [phone] | | | | | | [phone] | | +--------+ + + + + [...] + + | 11/30/ | Office | [facility] | Pj Abdi, | Anxiety with | | 2017 | Visit | MEDICINE [place] | [address] | depression (Primary | | | | [address] | [place] | Dx); Panic disorder; | | | | [place] | [address] | Chronic pain | | | | [address] | | syndrome; DDD | | | | [phone] | | (degenerative disc | | | [...] states the current phone number listed in [employer] is a good number She reports having [...] has been changed since signin Order [facility] [place] gabapentin (NEURONTIN) 300 mg capsule (Taking) Take 3 capsules by mouth Daily. Number of times this order has been changed since signin Order [facility] [place] gabapentin (NEURONTIN) 300 mg capsule (Taking/Discontinued) 900 mg Daily. HYDROcodone-acetaminophen (NORCO) 5-325 mg per tablet (Taking/Discontinued) Take 1 tablet by mouth every 6 hours as needed for Pain. hydrOXYzine hydrochloride (ATARAX) 25 mg tablet (Taking) Take 2 tablets by mouth every 6 hours as needed for Itching or Anxiety. Number of times this order has been changed since signin Order [facility] [place] naproxen (NAPROSYN) 500 mg tablet (Taking) Take 500 mg by mouth 2 times daily (with break fast & dinner). ondansetron (ZOFRAN ODT) 4 mg disintegrating tablet (Taking) Take 1 tablet by mouth every 8 hours as needed for Nausea. Number of times this order has been changed since signin Order [facility] [place] ondansetron (ZOFRAN ODT) 4 mg disintegrating tablet (Taking/Discontinued) Take 1 tablet b y mouth every 8 hours as needed for Nausea. Number of times this order has been changed since signin Order [facility] [place] propranolol (INDERAL) 10 mg tablet (Taking) Take 1 tablet by mouth 2 times daily. Number of times this order has been changed since signin Order [facility] [place] venlafaxine (EFFEXOR XR) 75 mg 24 hr capsule (Taking) Take 1 capsule by mouth Daily. Number of times this order has been changed since signin Order [facility] [place] venlafaxine (EFFEXOR XR) 75 mg 24 hr capsule (Taking/Discontinued) Take 1 capsule by mout h Daily. Number of times this order has been changed since signin Order [facility] [place] Past Medical History She has a past [...] 2 Years of education: G.E.D. Occupational History [employer] UNEMPLOYED Social History Main Topics Smoking [...] UA, POC Negative Negative, 100 mg/dL Specific [place], UA, POC 1.030 1.001 - 1.030 Blood, [...] per tablet 7. Urinary retention * [facility] - AMB Referral 8. Nausea ondansetron (ZOFRAN ODT) 4 mg disintegrating tablet 9. Hematuria POCT Urinalysis Dipstick Automated Culture, Urine Urinalysis With Microscopic 10. Need for HPV vaccination HPV 9-Valent recomb vaccine IM [88203] Plans: 1. Anxiety with depression 2. Panic [...] given appointment information Referral placed - * [facility] - AMB Referral 8. Nausea Refilled [...] today - HPV 9-Valent recomb vaccine IM [[id number]] Follow-up: Return in about 6 weeks (around 01/11/2017) for Anxious Depression. I, Luis Carlos DUARTE MA, am acting as a scribe on behalf of, and in the presence of MD JOANN Agustin Cert MA 12/01/16 I, Dr. Pj Abdi, personally performed the services described in this documentation, as scribed in my presence and it is both accurate and complete. jP Abdi MD 12/01/16 documented in this e ncounter Plan of Treatment + + +--------+ + + | Name | Type | Priori | Associated Diagnoses | Order Schedule | | | | ty | | | + + +--------+ + + | * [facility] | Outpatient | Routin | [...] - 1.030 | [facility] | | | [place], | | | [facility] | | [...] + | [address] | [address] | [place] | [phone] | | [facility] | | [address] | | | - LABORATORY | | [...] | | | Lactobacillus | | . [facility] | | | | speciesComment: | | [...] [address] | [place] | [phone] | | [facility] | | [address] | | | - LABORATORY | | [...] 1.001 - 1.030 | | | | [place], | | | | | | UA, [...]
--- OUTSIDE RECORDS SUMMARY | ~2019-10-30 | XMS | Encounter Summary ---
Demographics + + + | Address | [address] | | | [place] [address] | + + + | Home Phone [...] | | | | | [place] [address] | | + + + + + | Ab Romykia | ECON | Unknown | | + + + + + Care Team Providers + +------+ + | Care Purse Seiner Name | Role | Phone | + +------+ + PCP | Unavailable | + +------+ + Encounter Details +--------+ + + + + | Date | Type | Department | Care Team | Description | +--------+ + + + + | 10/07/ | Hospital | [facility] | | | | 2008 | Encounter | [facility] EM[facility] | | | | | | CENTER [address] | | | | | | [place], [place] | | | | | | [address] | | | | | | [phone] | | | +--------+ + + + [...]
--- OUTSIDE RECORDS SUMMARY | ~2019-10-30 | XMS | Encounter Summary ---
Demographics + + + | Address | [address] | | | [place] [address] | + + + | Home Phone [...] | | | | | [place] [address] | | + + + + + | Ab Romykia | ECON | Unknown | | + + + + + Care Team Providers + +------+ + | Care Management Advisor Name | Role | Phone [...] + + | 05/05/ | Office | [facility] | Melly Keating | Thoracic myofascial | | 2014 | Visit | [facility] | MD Esther [address] | strain, subsequent | | | | [place] [address] [place] | encounter (Primary | | | | [address] [place] | [place] [address] | Dx); Place of | | | | [place], [place] | [phone] | occurrence, | | | | [address] | | industrial places | | | | [phone] | | and premises | +--------+---------+ + [...] as of this encounter Progress Keyanna Marshall, Wind Farm Designer - 05/05/2015 2:43 PM PSTForm Fee Physician [...]
--- OUTSIDE RECORDS SUMMARY | ~2019-10-30 | XMS | Encounter Summary ---
Demographics + + + | Address | [address] | | | [place] [address] | + + + | Home Phone | | + + + | Preferred Language | Unknown | + + + | Marital Status | Single | + + + | Anabaptist Affiliation | 1013 | + + + | Race | Unknown | + + + | Ethnic Group | Unknown | + + + Author + + + | Author | [facility] | | | and Johnana | + + + | Organization | [facility] | | [...] | | | | | [place] [address] | | + + + + + | Absweta Bunch | ECON | Unknown | | + + + + + Care Team Providers + +------+ + | Care Golf Ball Inspector Name | Role | Phone | [...] + | 12/16/ | Telephone | [facility] | Pj Abdi, | Back Pain | | 2017 | | [facility] | [address] | | | | | [address] | [place] | | | | | [place] | [address] | | | | | [address] | | | | | | [phone] | | | +--------+ + + + [...]
--- OUTSIDE RECORDS SUMMARY | ~2019-10-30 | XMS | Encounter Summary ---
Demographics + + + | Address | [address] | | | [place] [address] | + + + | Home Phone [...] | | | | | [place] [address] | | + + + + + | Ab Romykia | ECON | Unknown | | + + + + + Care Team Providers + +------+ + | Care Emissions Repair Technician Name | Role | Phone | [...] + | 08/22/ | Refill | [facility] | Pj Abdi, | Medication Refill | | 2020 | | [facility] [place] | [address] | | | | | [address] | [place] | | | | | [place] | [id number] | | | | | [address] | | | | | | [phone] | | | +--------+--------+ + + + [...]
--- OUTSIDE RECORDS SUMMARY | ~2019-10-30 | XMS | Encounter Summary ---
Demographics + + + | Address | [address] | | | [place] [address] | + + + | Home Phone [...] | | | | | [place] [address] | | + + + + + | Ab Romykia | ECON | Unknown | | + + + + + Care Team Providers + +------+ + | Care Business Development Officer Name | Role | Phone | + +------+ + PCP | Unavailable | + +------+ + Encounter Details +--------+ + + + + | Date | Type | Department | Care Team | Description | +--------+ + + + + | 05/11/ | Hospital | [facility] | IzabellaPrecious | | | 2008 | Encounter | MED CTR EMERGENCY | MD Rebecca [address] | | | | | CENTER [address] | [address] [place], | | | | | [place], [place] | [place] [address] | | | | | [address] | [phone] | | | | | [phone] | | | +--------+ + + + [...]
--- OUTSIDE RECORDS SUMMARY | ~2019-10-30 | XMS | Encounter Summary ---
Demographics + + + | Address | [address] | | | [place] [address] | + + + | Home Phone [...] | | | | | [place] [address] | | + + + + + | Ab Bunch | ECON | Unknown | | + + + + + Care Team Providers + +------+ + | Care Glassie Name | Role | Phone | + [...] | | | | OP [address] | [place]VE [place], [place] | | | | | [place], [place] | [address] | | | | | [address] | | | | | | [phone] | | | +--------+ + + + [...] Jones, PT - 07/20/2017 2:31 PM [facility] [address] [facility] [address] Cancellation/No Show Date: 07/20/2017 Patient Information Patient [...]
--- OUTSIDE RECORDS SUMMARY | ~2019-10-30 | XMS | Encounter Summary ---
Demographics + + + | Address | [address] | | | [place] [address] | + + + | Home Phone [...] | | | | | [place] [address] | | + + + + + | Ab Romykia | ECON | Unknown | | + + + + + Care Team Providers + +------+ + | Care Inside Sales Specialist Name | Role | Phone | [...] + | 05/30/ | Refill | [facility] | Pj Abdi, | Medication Refill | | 2017 | | MEDIC[facility] [place] | [address] | | | | | [address] | [place] | | | | | [place] | [address] | | | | | [address] | | | | | | [phone] | | | +--------+--------+ + + + [...]
--- OUTSIDE RECORDS SUMMARY | ~2019-10-30 | XMS | Encounter Summary ---
Demographics + + + | Address | [address] | | | [place] [address] | + + + | Home Phone [...] | | | | | [place] [address] | | + + + + + | Absweta Bunch | ECON | Unknown | | + + + + + Care Team Providers + +------+ + | Care Vegetable Farming Supervisor Name | Role | Phone | [...] + + | 02/15/ | [facility] | [facility] | [facility] | Acute right-sided | | 2017 | | MED CTR EMERGENCY | MD Mike [address] | low back pain | | | | CENTER [address] | [address] [place] | without sciatica | | | | [place], [place] | [place] [address] | (Primary Dx) | | | | [address] | [phone] | | | | | [phone] | | | +--------+ + + + [...] through Care Everywhere.Back, How It Wo rks (Angolan)Back Pain, Relieving (Angolan)documented in this encounter Medications at Time [...] K?MRN: | | | | | | [id number] | | | [id number] | | | his | | | [...] | | | ent/a9 | | | [id number] | | | -83be- | | | [...] | | | [place] | | | [facility], | | | [place] - | | [...] | 1.010, 1.015, | | | | [place], | | 1.020, 1.025 | | | | POC | | | | | + + + + + + | Lot Number | [id number] | | | | + + + [...]
--- OUTSIDE RECORDS SUMMARY | ~2019-10-30 | XMS | Encounter Summary ---
Demographics + + + | Address | [address] | | | [place] [address] | + + + | Home Phone [...] Hogan | ECON | [address] | | | | | [place] [address] | | + + + + + | Ab Bunch | ECON | Unknown | | + + + + + Care Team Providers + +------+ + | Care Sugar Boiler Name | Role | Phone | + [...] | | | | | laterality, | [address] | [place], [place] | | | | | with | Phone: | [address] Phone: | | | | | sciatica | [phone] | [phone] | | | | | presence | Fax: | Fax: | | | | | unspecified | [phone] | [phone] | | | | | Chronic | [...] + + | 06/23/ | Office | [facility] | Pj Abdi, | Chronic low back | | 2018 | Visit | [facility]IC[facility] [place] | [address] | pain, unspecified | | | | [address] | [place] | back pain | | | | [place] | [address] | laterality, with | | | | [address] | | sciatica presence | | | | [phone] | | unspecified (Primary | | | | | | Dx); DDD | | | | | | (degenerative disc | | | | | | disease), lumbar; | | | | | | Facet arthritis of | | | | | | lumbar region ([facility]); | | | | | | Urge incontinence; | | | | | | Stress incontinence; | | | | | | Moderate episode of | | | | | | recurrent major | | | | | | depressive disorder | | | | | | ([facility]); Generalized | | | | | | [...] documented in this encounter Progress Notes Pj Abid MD - 06/23/2017 9:15 AM PSTFormatting of [...] children's heads. Although brother has moved from [place] and is eating and living off of [...] has been changed since signin Order [facility] [place] HYDROcodone-acetaminophen (NORCO) 5-325 mg per tablet (Taking) Take 1 tablet by mouth mai ry 6 hours as needed for Pain (for severe break through pain). Number of times this order has been changed since signin Order [facility] [place] hydrOXYzine hydrochloride (ATARAX) 25 mg tablet (Taking) TAKE TWO TABLETS EVERY SIX HOURS NEEDED FOR ANXIETY OR ITCHING Number of times this order has been changed since signin Order [facility] [place] naproxen (NAPROSYN) 500 mg tablet (Taking) TAKE ONE TABLET TWICE DAILY WITH BREAKFAST AND DINNER Number of times this order has been changed since signin Order [facility] [place] ondansetron (ZOFRAN ODT) 4 mg disintegrating tablet (Taking) DISSOLVE ONE TABLET UNDER TH E TONGUE EVERY EIGHT HOURS NEEDED FOR NAUSEA Number of times this order has been changed since signin Order [facility] [place] propranolol (INDERAL) 10 mg tablet (Taking) Take 1 tablet by mouth 2 times daily. Number of times this order has been changed since signin Order [facility] [place] tiZANidine (ZANAFLEX) 4 mg tablet (Taking) Take 1 tablet by mouth every 6 hours as needed . Number of times this order has been changed since signin Order [facility] [place] traZODone (DESYREL) 100 mg tablet (Taking) Take 0.5-1 tablet nightly as needed for sleep Number of times this order has been changed since signin Order [facility] [place] venlafaxine (EFFEXOR XR) 150 mg 24 hr capsule (Taking) Take 1 capsule by mouth Daily. Number of times this order has been changed since signin Order [facility] [place] Past Medical History She has a past [...] 2 Years of education: G.E.D. Occupational History [employer] UNEMPLOYED Social History Main Topics Smoking [...] UA, POC Negative Negative, 100 mg/dL Specific [place], UA, POC 1.015 1.001 - 1.030 Blood, [...]
--- OUTSIDE RECORDS SUMMARY | ~2019-10-30 | XMS | Encounter Summary ---
Demographics + + + | Address | [address] | | | [place] [address] | + + + | Home Phone [...] | | | | | [place] [address] | | + + + + + | Ab Romykia | ECON | Unknown | | + + + + + Care Team Providers + +------+ + | Care Dry Room Operator Name | Role | Phone | [...] + | 10/06/ | Refill | [facility] | Pj Abdi, | Medication Refill | | 2017 | | MEDICINE [place] | [address] | | | | | [address] | [place] | | | | | [place] | [address] | | | | | [address] | | | | | | [phone] | | | +--------+--------+ + + + [...]
--- OUTSIDE RECORDS SUMMARY | ~2019-10-30 | XMS | Encounter Summary ---
Demographics + + + | Address | [address] | | | [place] [address] | + + + | Home Phone [...] | | | | | [place] [address] | | + + + + + | Ab Romykia | ECON | Unknown | | + + + + + Care Team Providers + +------+ + | Care Rubber Goods Assembler Name | Role | Phone | [...] | 04/01/ | Refill | [facility] | Pj Abdi, | Medication Refill | | 2016 | | MEDICINE [place] | [address] | | | | | [address] | [place] | | | | | [place] | [address] | | | | | [address] | | | | | | [phone] | | | +--------+--------+ + + + [...]
--- OUTSIDE RECORDS SUMMARY | ~2019-10-30 | XMS | Encounter Summary ---
Demographics + + + | Address | [address] | | | [place] [address] | + + + | Home Phone [...] | | | | | [place] [address] | | + + + + + | Ab Romykia | ECON | Unknown | | + + + + + Care Team Providers + +------+ + | Care Test Fixture Assembler Name | Role | Phone | [...] + + | 02/14/ | Refill | [facility] | Pj Abdi, | Medication Refill | | 2018 | | MEDICINE [address] [place] [address] | [facility] | | | | | [place] | [place] | | | | | [place] [address] | [address] | | | | | [phone] | | | +--------+--------+ + + + [...]
--- OUTSIDE RECORDS SUMMARY | ~2019-10-30 | XMS | Encounter Summary ---
Demographics + + + | Address | [address] | | | [place] [address] | + + + | Home Phone [...] | | | | | [place] [address] | | + + + + + | Ab Romykia | ECON | Unknown | | + + + + + Care Team Providers + +------+ + | Care Brick And Blocker Aid Labor Name | Role | Phone | + [...] Exam | [facility] [address] | Karla, FINANCE INSURANCE MANAGER [address] | shoulder, subsequent | | | | [address] [place] | [address] | encounter; Strain | | | | [place] [address] | [place] | of tendon of right | | | | [phone] | [address] | wrist | | | | | [...]
--- OUTSIDE RECORDS SUMMARY | ~2019-10-30 | XMS | Encounter Summary ---
Demographics + + + | Address | [address] | | | [place] [address] | + + + | Home Phone [...] | | | | | [place] [address] | | + + + + + | Ab Romykia | ECON | Unknown | | + + + + + Care Team Providers + +------+ + | Care Treasury Director Name | Role | Phone | [...] + + | 03/28/ | [facility] | [facility] | Melly Keating | Thoracic myofascial | | 2015 | Visit | O[facility] | MD Esther [address] | strain, initial | | | | [place] [address] [place] | encounter (Primary | | | | [address] [place] | [place] [address] | Dx) | | | | [place] | [phone] | | | | | [address] | | | | | | [phone] | | | +--------+---------+ + + + [...] MD - 03/28/2015 2:44 PM PSTEmployer: [employer] [place] Guarantor: [employer] Date of injury: 03/14/15 Claim number: [id number] Chief complaint: Follow-up back injury Subjective: Injured [...] Vital signs as noted, nursing notes reviewed. [id number], well-nourished, in no apparent distress, pleasant and [...] MMI status. This note was dictated using Anpro21 voice recognition software. Occasional wrong- word or [...]
--- OUTSIDE RECORDS SUMMARY | ~2019-10-30 | XMS | Encounter Summary ---
Demographics + + + | Address | [address] | | | [place] [address] | + + + | Home Phone | | + + + | Preferred Language | Unknown | + + + | Marital Status | Single | + + + | Gnosticist Affiliation | 1013 | + + + | Race | Unknown | + + + | Ethnic Group | Unknown | + + + Author + + + | Author | [facility] | | | and Johnana | + + + | Organization | [facility] | | | [...] | | | | | [place] [address] | | + + + + + | Ab Romykia | ECON | Unknown | | + + + + + Care Team Providers + +------+ + | Care Research Interviewer Name | Role | Phone | + [...] | 11/22/ | Office | [facility] | Cyn Brizuela | Hematuria (Primary | | 2017 | Visit | CARE [address] | [place] [address] | Dx); Nausea | | | | [place] | [address] | | | | | [address] | [facility], | | | | | [phone] | [place] [address] | | | | | | [phone] | | | | | | | [...] of the urinary tract Date Last Reviewed: 02/01/201419992744-1620 [employer]. [address] [place] [address], [place] [address]. All righ ts reserved. This information is [...] most like to be. Date Last Reviewed: 05/28/201519996288-[address] [employer] [place] [address]. All righ ts reserved. This information is [...] has been changed since signin Order Audit [place] gabapentin (NEURONTIN) 300 mg capsule (Taking) 900 mg Daily. HYDROcodone-acetaminophen (NORCO) 5-325 mg per tablet (Taking) Take 1 tablet by mouth mai ry 6 hours as needed for Pain. hydrOXYzine hydrochloride (ATARAX) 25 mg tablet (Taking) Take 2 tablets by mouth every 6 hours as needed for Itching or Anxiety. Number of times this order has been changed since signin Order Audit [place] naproxen (NAPROSYN) 500 mg tablet (Taking) Take 500 mg by mouth 2 times daily (with break fast & dinner). ondansetron (ZOFRAN ODT) 4 mg disintegrating tablet (Taking) Take 1 tablet by mouth every 8 hours as needed for Nausea. Number of times this order has been changed since signin Order Audit [place] ondansetron (ZOFRAN ODT) 4 mg disintegrating tablet (Taking/Discontinued) Take 4 mg by mo uth every 8 hours as needed for Nausea. propranolol (INDERAL) 10 mg tablet (Taking) Take 1 tablet by mouth 2 times daily. Number of times this order has been changed since signin Order Audit [place] Past Medical History She has a past [...] 2 Years of education: G.E.D. Occupational History [employer] UNEMPLOYED Social History Main Topics Smoking [...] Negative Negative Internal QC Acceptable Acceptable Specific [place], POC 1.010, 1.015, 1.020, 1.025 Lot Number [id number] Expiration Date 03/22/2018 POCT Urinalysis Dipstick Automated Result Value Ref Range Color, UA, POC Dark Yellow (A) Yellow, Light Yellow Clarity, UA, POC Hazy Glucose, UA, POC Negative Negative Bilirubin, UA, POC Negative Negative Ketones, UA, POC Negative Negative, 100 mg/dL Specific [place], UA, POC 1.010 1.001 - 1.030 Blood, [...] 1.001 - 1.030 | | | | [place], | | | | | | UA, [...] [address] | [place] | [phone] | | [facility] | | [address] | | | - LABORATORY | | [...] | 1.010, 1.015, | | | | [place], | | 1.020, 1.025 | | | | POC | | | | | + + + + + + | Lot Number | [id number] | | | | + + + [...]
--- OUTSIDE RECORDS SUMMARY | ~2019-10-30 | XMS | Encounter Summary ---
Demographics + + + | Address | [address] | | | [place] [address] | + + + | Home Phone [...] | | | | | [place] [address] | | + + + + + | Ab Romykia | ECON | Unknown | | + + + + + Care Team Providers + +------+ + | Care Metrology Specialist Name | Role | Phone | + +------+ + PCP | Unavailable | + +------+ + Encounter Details +--------+ + + + + | Date | Type | Department | Care Team | Description | +--------+ + + + + | 12/04/ | Hospital | [facility] | Suhail Constantino | | | 2011 | Encounter | MED CTR EMER[facility] | MD Brian [address] | | | | [place] [address] | [address] [place] | | | | | [place], [place] | [place] [address] | | | | | [address] | [phone] | | | | | [phone] | | | +--------+ + + + [...]
--- OUTSIDE RECORDS SUMMARY | ~2019-10-30 | XMS | Encounter Summary ---
Demographics + + + | Address | [address] | | | [place] [address] | + + + | Home Phone [...] | | | | | [place] [address] | | + + + + + | Ab Romykia | ECON | Unknown | | + + + + + Care Team Providers + +------+ + | Care Net Repairer Name | Role | Phone | [...] + | 12/02/ | Telephone | [facility] | Pj Abdi, | Results | | 2017 | | MEDICINE [place] | [address] | | | | | [address] | [place] | | | | | [place] | [address] | | | | | [address] | | | | | | [phone] | | | +--------+ + + + [...]
--- OUTSIDE RECORDS SUMMARY | ~2019-10-30 | XMS | Encounter Summary ---
Demographics + + + | Address | [address] | | | [place] [address] | + + + | Home Phone [...] | | | | | [place] [address] | | + + + + + | Ab Romykia | ECON | Unknown | | + + + + + Care Team Providers + +------+ + | Care Fire Officer Name | Role | Phone | + +------+ + PCP | Unavailable | + +------+ + Encounter Details +--------+ + + + + | Date | Type | Department | Care Team | Description | +--------+ + + + + | 07/12/ | Hospital | [facility] | | | | 2010 | Encounter | [facility] | | | | | | [facility] [address] | | | | | | [place], | | | | | | [place] [phone] | | | | | | [phone] | | | +--------+ + + + [...]
--- OUTSIDE RECORDS SUMMARY | ~2019-10-30 | XMS | Encounter Summary ---
Demographics + + + | Address | [address] | | | [place] [address] | + + + | Home Phone [...] | | | | | [place] [address] | | + + + + + | Ab Romykia | ECON | Unknown | | + + + + + Care Team Providers + +------+ + | Care Film Waxer Name | Role | Phone | + [...] + | 03/26/ | Office | [facility] | Rajiv Delgado | Disruption of | | 2019 | Visit | CARE [address] | MD Caryl [address] | external surgical | | | | [place] | [place] | wound, initial | | | | [address] | [address] | encounter (Primary | | | | [phone] | | Dx) | +--------+---------+ + + [...] from the site initially which is since [facility] ed. She denies increased redness, warmth, swelling [...]
--- OUTSIDE RECORDS SUMMARY | ~2019-10-30 | XMS | Encounter Summary ---
Demographics + + + | Address | [address] | | | [place] [address] | + + + | Home Phone [...] | | | | | [place] [address] | | + + + + + | Ab Romykia | ECON | Unknown | | + + + + + Care Team Providers + +------+ + | Care Patternmaker Metal Bench Name | Role | Phone | + [...] + + | 02/02/ | Office | [facility] | Marcy Naik | Strain of right | | 2015 | Visit | CARE [address] | DO Saundra Bass | wrist, subsequent | | | | [place], [place] | [place], [place] | encounter--iimproved | | | | [address] | [address] | (Primary Dx) | | | | [phone] | | | +--------+---------+ + + + [...]
--- OUTSIDE RECORDS SUMMARY | ~2019-10-30 | XMS | Encounter Summary ---
Demographics + + + | Address | [address] | | | [place] [address] | + + + | Home Phone [...] | | | | | [place] [address] | | + + + + + | Ab Bunch | ECON | Unknown | | + + + + + Care Team Providers + +------+ + | Care Junior Administrative Assistant Name | Role | Phone | + +------+ + | Mike Fernández MD | PCP | | + +------+ + Encounter Details +--------+ + + + + | Date | Type | Department | Care Team | Description | +--------+ + + + + | 10/30/ | Hospital | [facility] | Suhail Constantino | | | 2012 | Encounter | MED CTR EMERGENCY | MD Brian [address] | | | | | [place] [address] | [address] [place] | | | | | [place], [place] | [place] [address] | | | | | [address] | [phone] | | | | | [phone] | | | +--------+ + + + [...]
--- OUTSIDE RECORDS SUMMARY | ~2019-10-30 | XMS | Encounter Summary ---
Demographics + + + | Address | [address] | | | [place] [address] | + + + | Home Phone | | + + + | Preferred Language | Unknown | + + + | Marital Status | Single | + + + | Religion Affiliation | 1013 | + + + | Race | Unknown | + + + | Ethnic Group | Unknown | + + + Author + + + | Author | [facility] | | | and Johnana | + + + | Organization | [facility] | | [...] | | | | | [place] [address] | | + + + + + | Ab Romykia | ECON | Unknown | | + + + + + Care Team Providers + +------+ + | Care Peoplesoft Financial Developer Name | Role | Phone | [...] + | 03/10/ | Refill | [facility] | Pj Abdi, | Medication Refill | | 2016 | | MEDICINE [place] | [address] | | | | | [address] | [place] | | | | | [place] | [address] | | | | | [address] | | | | | | [phone] | | | +--------+--------+ + + + [...]
--- OUTSIDE RECORDS SUMMARY | ~2019-10-30 | XMS | Encounter Summary ---
Demographics + + + | Address | [address] | | | [place] [address] | + + + | Home Phone [...] | | | | | [place] [address] | | + + + + + | Ab Romykia | ECON | Unknown | | + + + + + Care Team Providers + +------+ + | Care Adobe Cq Developer Name | Role | Phone | [...] + + | 11/11/ | Emergency | [facility] | Rajiv Vieyra, | Pelvic pain in | | 2016 - | | MED CTR EMERGENCY | [place] [address] | female (Primary Dx) | | | | CENTER [address] | [facility] [place] | | | 11/12/ | | [place] | [place] [address] | | | 2015 | | [address] | [phone] | | | | | [phone] | | | +--------+ + + + [...] your primary care provider Follow up with CREATIVE SERVICES DIRECTOR AttachmentsThe following attachments cannot be sent through Care Everywhere.OVARIAN CYSTS ( [place])documented in this encounter Medications at Time of [...] 1.001 - 1.030 | | | | [place], | | | | | | UA, [...] | 1.010, 1.015, | | | | [place], | | 1.020, 1.025 | | | | POC | | | | | + + + + + + | Lot Number | [id number] | | | | + + + [...] | | | | | Oral, ONCE, [facility] 11/13/15 at 0045, | | | | [...]
--- OUTSIDE RECORDS SUMMARY | ~2019-10-30 | XMS | Encounter Summary ---
Demographics + + + | Address | [address] | | | [place] [address] | + + + | Home Phone | | + + + | Preferred Language | Unknown | + + + | Marital Status | Single | + + + | Faith Affiliation | 1013 | + + + | Race | Unknown | + + + | Ethnic Group | Unknown | + + + Author + + + | Author | [facility] | | | and Johnana | + + + | Organization | [facility] | | [...] | | | | | [place] [address] | | + + + + + | Ab Romykia | ECON | Unknown | | + + + + + Care Team Providers + +------+ + | Care Picture Hanger Name | Role | Phone | + +------+ + PCP | Unavailable | + +------+ + Encounter Details +--------+ + + + + | Date | Type | Department | Care Team | Description | +--------+ + + + + | 05/19/ | Hospital | [facility] | Suhail Constantino | | | 2011 | Encounter | MED CTR EMERGENCY | MD Brian [address] | | | | | [place] [address] | [address] [place] | | | | | [place], [place] | [place] [address] | | | | | [address] | [phone] | | | | | [phone] | | | +--------+ + + + [...]
--- OUTSIDE RECORDS SUMMARY | ~2019-10-30 | XMS | Encounter Summary ---
Demographics + + + | Address | [address] | | | [place] [address] | + + + | Home Phone [...] | | | | | [place] [address] | | + + + + + | Ab Romykia | ECON | Unknown | | + + + + + Care Team Providers + +------+ + | Care Baggage Porter Head Name | Role | Phone | + [...] + | 06/10/ | Office | [facility] | Rajiv Delgado | Bronchitis with | | 2018 | Visit | CARE [address] | MD Caryl [address] | bronchospasm | | | | [place] | [place] | (Primary Dx); | | | | [address] | [address] | Cigarette smoker | | | | [phone] | | | +--------+---------+ + + + [...] fluids and get plenty of rest. Use tapo-eaz-opfznpv Tylenol as needed for fever, aches and [...] d/or Cepastat throat spray as needed. Take syby-iqx-ajplyhy Mucinex or equivalent product as needed for [...] exposed to secondhand smoke. You may use nmbf-gpp-jcdgcqb medicine to control fever or pain, unless [...] loosen secretions in the nose and lungs. Vilo-mwx-iifalmw cough, cold, and sore-throat medicines will not [...] pain with breathi ng Date Last Reviewed: 02/02/201519997922-7525 [employer]. [address] [place] [address], [place] [address]. All righ ts reserved. This information is not intended as a substitute for professional medical care. Always follow your healthcare professional's instructions. documented in this encounter Progress Notes Rajiv Deglado MD - 06/10/2017 5:30 PM PSTFormatting of [...] fluids and get plenty of rest. Use quuz-bat-duwhjtk Tylenol as needed for fever, aches and [...] d/or Cepastat throat spray as needed. Take wmsi-smm-imvvwfr Mucinex or equivalent product as needed for [...]
--- OUTSIDE RECORDS SUMMARY | ~2019-10-30 | XMS | Encounter Summary ---
Demographics + + + | Address | [address] | | | [place] [address] | + + + | Home Phone | | + + + | Preferred Language | Unknown | + + + | Marital Status | Single | + + + | Adventism Affiliation | 1013 | + + + | Race | Unknown | + + + | Ethnic Group | Unknown | + + + Author + + + | Author | [facility] | | | and Johnana | + + + | Organization | [facility] | | | [...] | | | | | [place] [address] | | + + + + + | Absweta Bunch | ECON | Unknown | | + + + + + Care Team Providers + +------+ + | Care Casting Operator Name | Role | Phone | [...] + + | 05/30/ | Emergency | [facility] | Andres Harding MD | Abdominal pain, | | 2019 | | MED CTR EMERGENCY | [address] | unspecified | | | | CENTER [address] | [place] | abdominal location | | | | [place], [place] | [address] | (Primary Dx) | | | | [address] | | | | | | [phone] | Eric Lozano MD | | | | | | [address] | | | | | | [place] | | | | | | [address] | | | | | | | [...] be sent through Care Everywhere.Abdominal Pain, Adult (Romansh)Dicyclomine tablets or capsules (Romansh)documented in this encounter Medications at Time of [...] K?MRN: | | | | | | [id number] | | | [id number] | | | riteri | | | [...] | | | of | | | taping supervisor | | | al | | | [...] + + | Performing | Address | City/State/[facility] | Phone Number | | Organization | [...] New | 12 - 53 U/L | [place] | | | | method in use as of | | [facility] | | | | July 19, 2018. [...] [address] | [place] | [phone] | | [facility] | | [address] | | | - LABORATORY | | [...] mL/min/1.73m2 | [facility] | | | STATELESS | RATE,ESTIMATED | | MEDICAL | | | | mL/min/1.69c8Hkkq than | | CENTER - | | [...] + | [facility] | [address] | [place] | [phone] | | [facility] | | [address] | | | - LABORATORY | | [...] ranges: Trim. Absolute (K/uL) Percentage (%) | [facility] | | 1st 0.003-0.091 K/uL 0.0-0.9% 2nd 0.007-0.247 K/uL | [facility] | | 0.1-2.0% 3rd 0.018-0.456 K/uL 0.1-2.0% | - LABORATORY | + + + + + + + + | Performing | Address | City/State/Zipcode | Phone Number | | Organization | | | | + + + + + | [facility] | [address] | [place] | [phone] | | [facility] | | [address] | | | - LABORATORY | | [...] Specific | | | | | | [place], | | | | | | POC | | | | | + + + + + + | Lot Number | [id number] | | | | + + + [...] - 1.030 | [facility] | | | [place], | | | [facility] | | [...] + | [facility] | [address] | [place], [place] | [phone] | | [facility] | | [address] | | | - LABORATORY | | [...]
--- OUTSIDE RECORDS SUMMARY | ~2019-10-30 | XMS | Encounter Summary ---
Demographics + + + | Address | [address] | | | [place] [address] | + + + | Home Phone [...] | | | | | [place] [address] | | + + + + + | Ab Bunch | ECON | Unknown | | + + + + + Care Team Providers + +------+ + | Care Tallow Refiner Name | Role | Phone | + [...] | encounter; Muscle | | | | [place], [place] | [address] | spasm of back; | | | | [address] | | Muscle spasms of | | | | [phone] | | neck | +--------+ + + [...]
[~2019-10-30 08:51] MED LIST: CLARITIN10 M2 PO; GABAPENTIN300 MG PO; NAPROSYN500 MG PO; PROZAC20 MG PO; SUBOXONE 2 MG-1 EAC2 SL; ZOFRAN4 MG PO
--- OUTSIDE RECORDS SUMMARY | 2019-10-30 08:54 | XMS ---
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 [place] VISIT COUNT (12 MO.) 2 [facility] Lissa Sutton [address] [place] [address] TOTAL 4 NOTE: Visits indicate total known visits. ED/UCC VISIT TRACKING (12 MO.) 10/30/2019 08:52 [facility] Torres TYPE: Emergency COMPLAINT: - R EYE INJURY 10/19/2019 05:50 [facility] [place] TYPE: Emergency COMPLAINT: - VOMITING,COUGH DIAGNOSES: - Nicotine dependence, unspecified, uncomplicated - Cough - Other retirement (current) drug therapy - Allergy status to other drugs, medicaments and biological sub - Viral infection, unspecified 07/12/2019 15:19 [facility] [place] TYPE: Urgent Care DIAGNOSES: - Abnormal uterine and vaginal bleeding, unspecified - Abdominal Cramping - Unspecified abdominal pain 06/13/2019 19:33 [facility] [place] TYPE: Urgent Care DIAGNOSES: - Strain of unspecified muscle, fascia and tendon at shoulder a - Muscle spasm of back - Other muscle spasm - Shoulder Injury 06/08/2019 16:06 [facility] [place] TYPE: Urgent Care DIAGNOSES: - Other specific joint derangements of left shoulder, not elsew - Follow-up 06/05/2019 19:00 [facility] [place] TYPE: Urgent Care DIAGNOSES: - Shoulder Pain - Other shoulder lesions, left shoulder - Enthesopathy, unspecified - Subacute thyroiditis 05/30/2019 20:[address] Lissa Sutton [place] TYPE: Emergency DIAGNOSES: - Abdominal Pain - Unspecified abdominal pain 05/07/2019 19:[address] Lissa Sutton [place] TYPE: Emergency DIAGNOSES: - neck and back pain - Neck Pain - Strain of muscle, fascia and tendon of lower back, initial en - Back Pain 03/26/2019 16:06 [facility] [place] [facility] [place] TYPE: Urgent Care DIAGNOSES: - Laceration - Disruption of external operation (surgical) wound, not elsewh INPATIENT VISIT TRACKING (12 MO.) No inpatient visits to display in this time frame [email or web address]
== END 2019-10-30 10:24 | disposition home or self-care (01) ==
LOC: ED 08:51
DX: H57.89 Other specified disorders of eye and adnexa (principal); F17.200 Nicotine dependence, unspecified, uncomplicated; Z88.8 Allergy status to other drugs, medicaments and biological substances; Z79.899 Other long term (current) drug therapy
CPT/HCPCS: 99283